=== PATIENT | female | born 1955 | race American Indian/Alaskan Native ===

== ENCOUNTER 2017-05-26 18:48 | Inpatient (IN) | payer BC ==
[2017-05-26 18:58] VITALS: BMI 22.5
[2017-05-26] MEDS ORDERED: HYDROmorphone 1 mg/ml ISec IVP STA (19:44)
[2017-05-26] MEDS ORDERED: Cefepime IV 2 gm in NS 2 GM/100 ML BAG IVPB STA (19:51)
[2017-05-26] MEDS ORDERED: Sodium Chloride 0.9% 1,000 ML IV STA (20:36)
[2017-05-26 20:57] LABS: VENOUS BLOOD PH 7.38 (7.32-7.43)
[2017-05-26 20:59] LABS: BASO # 0.05 K/mm3 (0.0-2.0); BASO % 0.5 % (0.0-3.0); EOS # 0.2 (0.0-0.7); EOS % 1.8 % (1.5-5.0); GRAN # 7.49 (1.4-6.5); GRAN % 72.4 % (50.0-68.0); HEMATOCRIT 32.6 % (36.0-48.0); LYMPH # 1.2 (1.2-3.4); LYMPH % 11.7 % (22.0-35.0); MEAN CELL VOLUME 90.8 fl (80.0-105.0); MEAN CORPUSCULAR HEMOGLOBIN 30.4 pg (25.0-35.0); MEAN CORPUSCULAR HGB CONC 33.4 g/dl (31.0-37.0); MEAN PLATELET VOLUME 9.7 fl (7.0-11.0); MONO # 1.4 (0.1-0.6); MONO % 13.6 % (1.0-6.0); WHITE BLOOD COUNT 10.4 10^3/ul (4.5-11.0)
[2017-05-26 21:05] LABS: INR 1.33 (0.93-1.08)
[2017-05-26 21:06] LABS: ALKALINE PHOSPHATASE 102 U/L (38-126); ALT/SGPT 41 U/L (7-56); AST/SGOT 49 U/L (14-36); BILIRUBIN,TOTAL 0.6 mg/dL (0.2-1.3); BLOOD UREA NITROGEN 14 mg/dL (7-21); CALCIUM 9.6 mg/dL (8.4-10.5); CARBON DIOXIDE 31 mmol/L (21-33); CHLORIDE 100 mmol/L (98-107); GFR AFRICAN-AMERICAN > 60; GLUCOSE,RANDOM 119 mg/dL (70-110); POTASSIUM 3.2 mmol/L (3.6-5.0); SODIUM 139 mmol/L (132-148); TOTAL PROTEIN 7.5 g/dL (5.8-8.3)
--- NOTE | 2017-05-26 21:21 | ED PDOC ---
Arrival/HPI - General Chief Complaint: Abnormal Skin Integrity Time Seen by Provider: 05/26/17 19:21 Historian: Patient - History of Present Illness Narrative History of Present Illness (Text): 05/26/17 19:40 A 61 year old female, whose past medical history includes MS, bladder ca and ovarian ca, presents to the emergency department complaining of painful ulcers on legs. Patient was sent in by Dr. Hernadez. She reports fevers of 101 at home and has been on Bactrim for the past week. is worried about spreading to the bone and osteomyelitis and recommends surgical consult with Dr. Alexandra. Patient reports completing chemotherapy in April. Patient has chronic ulcers on leg, and has recently been draining and painful radiating to upper leg. 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 - HEENT Hx HEENT Disorder: No Other/Comment: wears glasses - Renal Hx Renal Disorder: Yes Other/Comment: bladder stones/ cancer - Endocrine/Metabolic Hx Endocrine Disorders: No - Hematological/Oncological Hx Blood Transfusions: No Hx Blood Transfusion Reaction: No Hx Cancer: Yes (Bladder/ovarian CA) - Integumentary Hx Dermatological Disorder: No - Musculoskeletal/Rheumatological Hx Musculoskeletal Disorders: Yes - Gastrointestinal Hx Gastrointestinal Disorders: Yes Hx Vomiting: No - Genitourinary/Gynecological Hx Genitourinary Disorders: Yes Hx Bladder Cancer: Yes Hx Bladder Stone: Yes Hx Ovarian Cancer: Yes Other/Comment: + R side urostomy - Psychiatric Hx Emotional Abuse: No Hx Physical Abuse: No Hx Substance Use: No - Surgical History Other/Comment: Gtube reversal. R side urostomy. L side pacemaker/ defibrillator. Partial hysterectomy - Anesthesia Hx Anesthesia: Yes Hx Anesthesia Reactions: No Hx Malignant Hyperthermia: No - Suicidal Assessment Feels Threatened In Home Enviroment: No Family/Social History - Physician Review Nursing Documentation Reviewed: Yes Family/Social History: No Known Family HX Smoking Status: Never Smoked Hx Alcohol Use: No Hx Substance Use: No Hx Substance Use Treatment: No Allergies/Home Meds Allergies/Adverse Reactions: Allergies No Known Allergies Allergy (Verified 10/19/15 13:54) Home Medications: Home Meds Medication Instructions Recorded Confirmed Tapentadol HCl [Nucynta ER] 150 mg PO Q12H 08/16/13 05/26/17 Tapentadol HCl [Nucynta] 100 mg PO QID 10/16/15 05/26/17 tiZANidine [Zanaflex] 4 mg PO HS 10/16/15 05/26/17 Ascorbic Acid [Vitamin C] 1 tab PO DAILY 10/19/15 05/26/17 Cholecalciferol (Vitamin D3) 50,000 unit PO MON 10/19/15 05/26/17 [Vitamin D] Pregabalin [Lyrica] 225 mg PO BID 10/19/15 05/26/17 Glatiramer Acetate [Copaxone] 40 mg SQ MWF 10/20/15 05/26/17 Review of Systems - Physician Review All systems were reviewed & negative as marked: Yes - Review of Systems Constitutional: Fevers Skin: Ulcer, Other (Left leg pain) Physical Exam Vital Signs Reviewed: Yes Vital Signs Temp Pulse Resp BP Pulse Ox 05/26/17 21:30 86 18 124/76 100 05/26/17 19:03 98.8 F 122 H 18 119/80 98 Temperature: Afebrile Blood Pressure: Normal Pulse: Regular Respiratory Rate: Normal Appearance: Positive for: Well-Appearing Pain Distress: None Mental Status: Positive for: Alert and Oriented X 3 - Systems Exam Head: Present: Atraumatic, Normocephalic Pupils: Present: PERRL Extroacular Muscles: Present: EOMI Conjunctiva: Present: Normal Mouth: Present: Moist Mucous Membranes Neck: Present: Normal Range of Motion Respiratory/Chest: Present: Clear to Auscultation, Good Air Exchange. No: Respiratory Distress, Accessory Muscle Use Cardiovascular: Present: Regular Rate and Rhythm, Normal S1, S2. No: Murmurs Abdomen: Present: Normal Bowel Sounds. No: Tenderness, Distention, Peritoneal Signs Back: Present: Normal Inspection Upper Extremity: Present: Normal Inspection. No: Cyanosis, Edema Lower Extremity: Present: NORMAL PULSES, Erythema, Other (multiple necrotic wounds 4cm to the left medial calf with minimal erythema. Varies stages of infection other necrotic wounds. (-) No swelling on soft tissue.). No: Edema, Swelling Neurological: Present: GCS=15, CN II-XII Intact, Speech Normal Skin: Present: Warm, Dry, Normal Color. No: Rashes Psychiatric: Present: Alert, Oriented x 3, Normal Insight, Normal Concentration Medical Decision Making ED Course and Treatment: 05/26/17 19:44 Impression: 61 year old female with chronic ulcer on legs. Plan: -- Left Tibia Fibula X-Ray -- Venous Blood gas -- Blood Culture -- Dilaudid -- Cefepime IV -- Potassium Chlroide IV -- IV Fluids -- Vancomycin -- Reassess and disposition Progress Notes: bedside surgical consult with surgical consultant doubt deep space infection or nec fasc, pain control and abx given. broad spectrum abx given possible early signs of sepsis will give aggressive fluid resusc. will admit to 's service. 05/26/17 22:14 06/01/17 18:16 06/01/17 18:18 Reassessment Condition: Re-examined, Improved - Lab Interpretations Microbiology Results: Microbiology Results 05/26/17 20:30 Blood Blood Culture - Final NO GROWTH AFTER 5 DAYS 05/26/17 20:30 Blood Gram Stain - Final TEST NOT PERFORMED 05/26/17 20:20 Blood Blood Culture - Final NO GROWTH AFTER 5 DAYS 05/26/17 20:20 Blood Gram Stain - Final TEST NOT PERFORMED 05/26/17 21:02 Leg - Left Gram Stain - Final 05/26/17 21:02 Leg - Left Wound Culture - Final Pseudomonas Aeruginosa Lab Results: 05/26/17 20:20 05/26/17 20:20 Lab Results 05/26/17 20:20: PT 14.6 H, INR 1.33 H 05/26/17 20:20: pO2 56 H, VBG pH 7.38, VBG pCO2 49.0, VBG HCO3 29.0 H, VBG Total CO2 30.5 H, VBG O2 Sat (Calc) 92.4 H, VBG Base Excess 3.0 H, VBG Potassium 3.4 L, Sodium 139.0, Chloride 102.0, Glucose 122 H, Lactate 2.1, FiO2 21.0, Venous Blood Potassium 3.4 L 05/26/17 20:20: Sodium 139, Chloride 100, Potassium 3.2 L, Carbon Dioxide 31, Anion Gap 11, BUN 14, Creatinine 1.0, Est GFR ( Amer) > 60, Est GFR (Non- Af Amer) 56, Random Glucose 119 H, Calcium 9.6, Total Bilirubin 0.6, AST 49 H, ALT 41, Alkaline Phosphatase 102, Total Protein 7.5, Albumin 3.7, Globulin 3.8, Albumin/Globulin Ratio 1.0 L 05/26/17 20:20: WBC 10.4 D, RBC 3.59, Hgb 10.9 L, Hct 32.6 L, MCV 90.8, MCH 30.4, MCHC 33.4, RDW 15.0 H, Plt Count 426, MPV 9.7, Gran % 72.4 H, Lymph % ( Auto) 11.7 L, [place] % (Auto) 13.6 H, Eos % (Auto) 1.8, Baso % (Auto) 0.5, Gran # 7.49 H, Lymph # 1.2, [place] # 1.4 H, Eos # 0.2, Baso # 0.05 - RAD Interpretation Radiology Orders: 05/26/17 19:47 TIBIA FIBULA LEFT [RAD] Stat - Medication Orders Current Medication Orders: Acetaminophen (Tylenol 325mg Tab) 650 mg PO Q6H PRN PRN Reason: Fever >100.4 F Last Admin: 05/29/17 22:01 Dose: 650 mg [facility] Pain/Vitals Document 05/29/17 22:01 IMT (Rec: 05/29/17 22:01 IMT [id number]) Presence of Pain Presence of Pain Yes Location Left, Right or Bilateral Left Pain Location Body Site Calf Description Intermittent Intensity 5 Pain Behavior Restlessness Re-Assess: [facility] Pain/Vitals Document 05/29/17 23:01 IMT (Rec: 05/29/17 23:18 IMT [id number]) Presence of Pain Presence of Pain No Ascorbic Acid (Vitamin C 500 Mg Tab) 250 mg PO DAILY [facility] Last Admin: 06/01/17 14:44 Dose: 250 mg Collagenase (Santyl) 0 gm TOP DAILY [facility] Last Admin: 06/01/17 14:46 Dose: 1 applic Home Med (Home Med) 1 unit INJ MWF [facility] Last Admin: 05/31/17 11:13 Dose: 1 unit Hydromorphone HCl (Dilaudid) 1 mg IVP Q4H PRN PRN Reason: Pain, moderate (4-7) Last Admin: 06/01/17 17:36 Dose: 1 mg MAR Pain Assessment [place] 06/01/17 17:36 [facility] [place]: 06/01/17 17:36 [id number]) Pain Reassessment Is this a pain reassessment? No Presence of Pain Presence of Pain Yes Pain Scale Used Pain Scale Used Numeric Location Left, Right or Bilateral Bilateral Pain Location Body Site Groin Description Description Pressure Intensity of Pain at present 9 Pain Behavior Irritability Restlessness Facial Grimacing Aggravating Factors Changing Position Alleviating Factors/Management Medication Techniques Alleviating Factors Medication IVP Administration Document 06/01/17 17:36 [facility] [place]: 06/01/17 17:36 [id number]) Charges for Administration # of IVP Administrations 1 Meropenem (Merrem Iv 1 Gm Premix) 50 mls @ 100 mls/hr IVPB Q8 [facility] PRN Reason: Protocol Stop: 06/06/17 23:59 Last Admin: 06/01/17 14:45 Dose: 100 mls/hr eMAR Start Stop Document 06/01/17 14:45 [facility] (Rec: 06/01/17 14:46 [id number]) Intravenous Solution Start Date 06/01/17 Start Time 14:46 Sodium Chloride (Sodium Chloride 0.9%) 1,000 mls @ 100 mls/hr IV .Q10H [facility] Last Admin: 06/01/17 17:37 Dose: 100 mls/hr eMAR Start Stop Document 06/01/17 17:37 MCV (Rec: 06/01/17 17:37 [id number]) Intravenous Solution Start Date 06/01/17 Start Time 17:37 Lactulose (Enulose) 20 gm PO HS [facility] Last Admin: 05/31/17 21:56 Dose: 20 gm Ondansetron HCl (Zofran Inj) 4 mg IVP Q4H PRN PRN Reason: Nausea/Vomiting Oxycodone/Acetaminophen (Percocet 5/325 Mg Tab) 2 tab PO Q4H PRN PRN Reason: Pain, moderate (4-7) Stop: 06/04/17 11:56 Pantoprazole Sodium (Protonix Ec Tab) 40 mg PO 0600 [facility] Last Admin: 06/01/17 05:56 Dose: Not Given Non-Admin Reason: NPO Polyethylene Glycol (Miralax) 17 gm PO BID [facility] Last Admin: 06/01/17 14:45 Dose: 17 gm Pregabalin (Lyrica) 225 mg PO BID [facility] Last Admin: 06/01/17 14:45 Dose: 225 mg Tizanidine HCl (Zanaflex) 4 mg PO HS [facility] Last Admin: 05/31/17 21:56 Dose: 4 mg Discontinued Medications Hydromorphone HCl (Dilaudid) 1 mg IVP STAT STA Stop: 05/26/17 19:45 Last Admin: 05/26/17 21:03 Dose: 1 mg MAR Pain Assessment Document 05/26/17 21:03 [facility] (Rec: 05/26/17 21:03 [facility] [id number]) Pain Reassessment Is this a pain reassessment? Yes IVP Administration Document 05/26/17 21:03 [facility] (Rec: 05/26/17 21:03 [facility] [id number]) Charges for Administration # of IVP Administrations 1 Cefepime HCl (Maxipime 2gm) 2 gm in 100 mls @ 100 mls/hr IVPB STAT STA PRN Reason: Protocol Stop: 05/26/17 20:50 Last Admin: 05/26/17 21:03 Dose: 100 mls/hr eMAR Start Stop Document 05/26/17 21:03 [facility] (Rec: 05/26/17 21:04 [facility] [id number]) Intravenous Solution Start Date 05/26/17 Start Time 21:03 End Date 05/26/17 End time 21:33 Total Infusion Time 30 Vancomycin HCl (Vancomycin 1gm) 1 gm in 250 mls @ 167 mls/hr IVPB DAILY [facility] PRN Reason: Protocol Sodium Chloride (Sodium Chloride 0.9%) 1,000 mls @ 999 mls/hr IV .Q1H1M STA Stop: 05/26/17 21:36 Last Admin: 05/26/17 21:04 Dose: 999 mls/hr eMAR Start Stop Document 05/26/17 21:04 [facility] (Rec: 05/26/17 21:04 [facility] [id number]) Intravenous Solution Start Date 05/26/17 Start Time 21:04 End Date 05/26/17 End time 22:04 Total Infusion Time 60 Vancomycin HCl (Vancomycin 1gm) 1 gm in 250 mls @ 167 mls/hr IVPB Q12H [facility] PRN Reason: Protocol Last Admin: 05/31/17 11:16 Dose: 167 mls/hr eMAR Start Stop Document 05/31/17 11:16 [place] (Rec: 05/31/17 11:16 [place] [id number] Intravenous Solution Start Date 05/31/17 Start Time 11:16 End Date 05/31/17 End time 12:46 Total Infusion Time 90 Meropenem 1 gm/ Dextrose 100 mls @ 100 mls/hr IVPB Q8 [facility] PRN Reason: Protocol Stop: 06/06/17 22:01 Last Admin: 05/30/17 14:27 Dose: 100 mls/hr eMAR Start Stop Document 05/30/17 14:27 [place] (Rec: 05/30/17 14:28 [place] [id number] Intravenous Solution Start Date 05/30/17 Start Time 14:28 End Date 05/30/17 End time 15:28 Total Infusion Time 60 Lactated Ringer's (Lactated Ringer's) 1,000 mls @ 75 mls/hr IV .[id number] [facility] Stop: 05/30/17 14:46 Oxycodone/Acetaminophen (Percocet 5/325 Mg Tab) 1 tab PO Q4H PRN PRN Reason: Pain, moderate (4-7) Stop: 05/29/17 23:35 Last Admin: 05/29/17 16:54 Dose: 1 tab [facility] Pain Assessment Document 05/29/17 16:54 [place] (Rec: 05/29/17 16:54 [place] [id number] Pain Reassessment Is this a pain reassessment? No Presence of Pain Presence of Pain Yes Pain Scale Used Pain Scale Used Numeric Location Left, Right or Bilateral Left Pain Location Body Site Foot Description Description Intermittent Intensity of Pain at present 7 Pain Behavior Facial Grimacing Alleviating Factors/Management Medication Techniques Alleviating Factors Medication Re-Assess: [facility] Pain Assessment Document 05/29/17 17:54 SD (Rec: 05/29/17 18:40 SD [id number]) Pain Reassessment Is this a pain reassessment? Yes Sleep Is patient sleeping during reassessment? Yes Pantoprazole Sodium (Protonix Ec Tab) 40 mg PO 0600 [facility] Potassium Chloride (K-Dur 20 Meq Er Tab) 20 meq PO STAT STA Stop: 05/26/17 21:28 Last Admin: 05/26/17 22:39 Dose: 20 meq - Scribe Statement The provider has reviewed the documentation as recorded by the Seanibmarty Brumfield Provider Scribe Attestation: All medical record entries made by the Scribe were at my direction and personally dictated by me. I have reviewed the chart and agree that the record accurately reflects my personal performance of the history, physical exam, medical decision making, and the department course for this patient. I have also personally directed, reviewed, and agree with the discharge instructions and disposition. Disposition/Present on Arrival - Present on Arrival Any Indicators Present on Arrival: Yes History of DVT/PE: No History of Uncontrolled Diabetes: No Urinary Catheter: Yes History of Decub. Ulcer: No History Surgical Site Infection Following: None - Disposition Have Diagnosis and Disposition been Completed?: Yes Diagnosis: Leg ulcer Disposition: HOSPITALIZED Disposition Time: 02:00 Patient Plan: Admission Condition: FAIR
[2017-05-26] MEDS ORDERED: Potassium Chloride 20 mEq ER Tab PO STA (21:27)
[2017-05-27 01:42] LABS: VENOUS BLOOD GAS BASE EXCESS 6.9 mmol/L (0.0-2.0); VENOUS BLOOD PH 7.41 (7.32-7.43)
--- NOTE | 2017-05-27 04:37 | CP.PCM.CON ---
History of Present Illness - History of Present Illness History of Present Illness: General Surgery- Dr. Navarro 61F pmhx of chemo & radiation for Ovarian and bladder Ca presents to [facility] ED after primary seeing her in office for multiple left lower extremity different stage ulcers. Pt describes LLE numbness and tingling with associated sharp pain. First noticed leg ulcer after her last chemo treatment in April of 2016. Most medial ulcer has purulent drainage from site with mild erythema. Pt has associated subjective fevers. Denies: chills, shortness of breath, chest pain, heart palpitations, nausea, vomiting, diarrhea PMH: Stated above PSH: ileal conduit (2016) at [place], bowel resection, ICD placement ALL: NKDA SocialHx: former smoker quit > 2.5yrs ago approx 1ppd, denies etoh, recreational drug use PMD: Dr. Hernadez Review of Systems - Review of Systems All systems: reviewed and no additional remarkable complaints except - Constitutional Constitutional: As Per HPI Past Patient History - Infectious Disease Hx of Infectious Diseases: None - Tetanus Immunizations Tetanus Immunization: Up to Date - Past Medical History & Family History Past Medical History?: Yes - Past Social History Smoking Status: Former Smoker - CARDIAC Hx Internal Defibrillator: Yes [place]x [place] [facility] [place] Other/Comment: L sided pac[place] - PULMONARY Hx Respiratory Disorders: No - NEUROLOGICAL Hx Neurological Disorder: Yes Other/Comment: 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 - HEENT Hx HEENT Problems: No Other/Comment: wears glasses - RENAL Hx Chronic Kidney Disease: Yes Other/Comment: bladder stones/ cancer - ENDOCRINE/METABOLIC Hx Endocrine Disorders: No - HEMATOLOGICAL/ONCOLOGICAL Hx Cancer: Yes (Bladder/ovarian CA) - INTEGUMENTARY Hx Dermatological Problems: No - MUSCULOSKELETAL/RHEUMATOLOGICAL Hx Falls: Yes - GASTROINTESTINAL Hx Gastrointestinal Disorders: Yes - GENITOURINARY/GYNECOLOGICAL Hx Genitourinary Disorders: Yes Other/Comment: + R side urostomy - PSYCHIATRIC Hx Substance Use: No - SURGICAL HISTORY Hx Hysterectomy: Yes Other/Comment: Gtube reversal. R side urostomy. L side pacemaker/ defibrillator. Partial hysterectomy - ANESTHESIA Hx Anesthesia: Yes Hx Anesthesia Reactions: No Hx Malignant Hyperthermia: No Meds Allergies/Adverse Reactions: Allergies Allergy/AdvReac Type Severity Reaction Status Date / Time No Known Allergies Allergy Verified 10/19/15 13:54 - Medications Medications: Current Medications Ascorbic Acid (Vitamin C 500 Mg Tab) 250 mg PO DAILY [facility] Vancomycin HCl (Vancomycin 1gm) 1 gm in 250 mls @ 167 mls/hr IVPB Q12H [facility] PRN Reason: Protocol Oxycodone/Acetaminophen (Percocet 5/325 Mg Tab) 1 tab PO Q4H PRN PRN Reason: Pain, moderate (4-7) Stop: 05/29/17 23:35 Pregabalin (Lyrica) 225 mg PO BID [facility] Last Admin: 05/27/17 01:14 Dose: 225 mg Tizanidine HCl (Zanaflex) 4 mg PO HS [facility] Last Admin: 05/27/17 01:13 Dose: 4 mg Physical Exam - Constitutional Appears: Non-toxic, No Acute Distress - Head Exam Head Exam: ATRAUMATIC - Eye Exam Eye Exam: EOMI. absent: Scleral icterus - ENT Exam ENT Exam: Mucous Membranes Moist - Respiratory Exam Respiratory Exam: NORMAL BREATHING PATTERN. absent: Accessory Muscle Use, Respiratory Distress - Cardiovascular Exam Cardiovascular Exam: +S1, +S2. absent: Bradycardia, Tachycardia - GI/Abdominal Exam GI & Abdominal Exam: Soft. absent: Distended, Firm, Guarding, Rigid, Tenderness Additional comments: ileal conduit right lateral to umbilicus - Extremities Exam Extremities exam: Positive for: pedal pulses present Additional comments: 2+ DP pulses bilateral LLE 4 ulcers at various stages. Medial ulcer stage 4 w/ purulent drainage. no area of nercosis - Neurological Exam Neurological exam: Alert, Oriented x3 - Psychiatric Exam Psychiatric exam: Normal Affect - Skin Skin Exam: Dry, Warm Results - Vital Signs Recent Vital Signs: Last Vital Signs Temp 98.7 F 05/27/17 03:28 Pulse 95 H 05/27/17 03:28 Resp 20 05/27/17 03:28 BP 101/63 05/27/17 03:28 Pulse Ox 100 05/26/17 21:30 - Labs Result Diagrams: 05/26/17 20:20 05/26/17 20:20 Labs: Laboratory Results - last 24 hr 05/27/17 01:30 pO2 71 H VBG pH 7.41 VBG pCO2 52.0 VBG HCO3 33.0 H VBG Total CO2 34.6 H VBG O2 Sat (Calc) 95.5 H VBG Base Excess 6.9 H VBG Potassium 3.4 L Sodium 143.0 Chloride 108.0 H Glucose 114 H Lactate 1.0 FiO2 21.0 Venous Blood Potassium 3.4 L Assessment & Plan - Assessment and Plan (Free Text) Assessment: 61F pmhx chemo treatment for bladder, ovarian CA in remission; multiple left lower extremity leg ulcers at various stages Plan: - local wound care w/ santyl for now; chemical debridement - wound culture - Abx per ID recs - will re-asses to determine if mechanical debridement is needed - further recommendations per Dr. Navarro surgical attending Doug William PGY1
[2017-05-27] MEDS: Vancomycin 1gm in NS 250ml 1 GM/250 ML BAG IVPB SCH ×3 (06:25→23:24)
[2017-05-27 06:28] LABS: BASO # 0.07 K/mm3 (0.0-2.0); BASO % 0.9 % (0.0-3.0); EOS # 0.2 (0.0-0.7); EOS % 2.6 % (1.5-5.0); GRAN # 5.48 (1.4-6.5); GRAN % 67.8 % (50.0-68.0); LYMPH # 1.2 (1.2-3.4); LYMPH % 14.5 % (22.0-35.0); MEAN CELL VOLUME 91.7 fl (80.0-105.0); MEAN CORPUSCULAR HEMOGLOBIN 29.2 pg (25.0-35.0); MEAN CORPUSCULAR HGB CONC 31.9 g/dl (31.0-37.0); MEAN PLATELET VOLUME 9.5 fl (7.0-11.0); MONO # 1.2 (0.1-0.6); MONO % 14.2 % (1.0-6.0); RED CELL DISTRIBUTION WIDTH 15.2 % (11.5-14.5); WHITE BLOOD COUNT 8.1 10^3/ul (4.5-11.0)
[2017-05-27 06:38] LABS: ALB/GLOB RATIO 0.9 (1.1-1.8); ALKALINE PHOSPHATASE 86 U/L (38-126); ALT/SGPT 41 U/L (7-56); AST/SGOT 50 U/L (14-36); BILIRUBIN,TOTAL 0.5 mg/dL (0.2-1.3); BLOOD UREA NITROGEN 16 mg/dL (7-21); CALCIUM 9.4 mg/dL (8.4-10.5); CARBON DIOXIDE 31 mmol/L (21-33); CHLORIDE 106 mmol/L (98-107); GFR AFRICAN-AMERICAN > 60; GLUCOSE,RANDOM 96 mg/dL (70-110); POTASSIUM 3.8 mmol/L (3.6-5.0); SODIUM 142 mmol/L (132-148); TOTAL PROTEIN 6.7 g/dL (5.8-8.3)
--- NOTE | 2017-05-27 08:58 | CP.PCM.PCO ---
Physician Communication Note - Physician Communication Note Physician Communication Note: Will need excisional debridement to r/oPyoderma gangrenosum(?STSG)
[2017-05-27] MEDS ORDERED: Vancomycin 1gm in NS 250ml 1 GM/250 ML BAG IVPB SCH (10:00)
--- NOTE | 2017-05-27 10:03 | RAD ---
PROCEDURE: Radiographs of the left tibia and fibula. HISTORY: left leg lesion COMPARISON: None available. TECHNIQUE: Frontal and lateral views obtained. FINDINGS: BONES: No acute displaced fracture. Within the distal tibia, there is evidence of a chondroid lesion, possibly an enchondroma. However correlate clinically for pain as low grade chondrosarcoma may have similar appearance. JOINT SPACES: No dislocation. OTHER FINDINGS: Posterior medial soft tissue defect at the level of the distal lower leg. No evidence of radiopaque foreign body. IMPRESSION: Posterior medial soft tissue defect at the level of the distal lower leg. Within the distal tibia, there is evidence of a chondroid lesion, possibly an enchondroma. However correlate clinically for pain as low grade chondrosarcoma may have similar appearance.
[2017-05-27] MEDS: Collagenase 250 Units/gm Ointment(30 gm) TOP SCH (11:02)
--- NOTE | 2017-05-27 11:26 | HP ---
HISTORY OF PRESENT ILLNESS: The patient is 61-year-old black female known to me from office. She was seen in office earlier because of worsening left kyle bone. The patient states she had chemotherapy couple of months ago. Since then she had spots of both legs, but more so on the left. I gave her Bactrim DS and Bactroban through put. Most of the lesions got healed but one of them kept on getting bigger and bigger to the point that was draining purulent fluid, getting deeper crater. So, I saw the patient in the office earlier and was found to have leg wound having foul-smelling discharge and necrotic tissue at the base. So, I referred her to emergency room for IV antibiotic, wound care, and surgical evaluation since the patient complained of having fever and chills for last 3 days. She stated she has fever up to 101. She also complained of painful lymphadenopathy in both groins. PAST MEDICAL HISTORY: Significant for: 1. Multiple sclerosis. 2. History of bladder cancer status post ileal conduit formation. 3. History of ovarian cancer status post hysterectomy. 4. Peptic ulcer disease. 5. Status post PEG because of dysphagia. 6. History of cardiomyopathy. 7. Status post coronary artery disease, status post left anterior descending bare metal stenting. ALLERGIES: THE PATIENT IS NOT ALLERGIC TO ANY MEDICATION. MEDICATIONS: Medications at home, she is on Lyrica 225 twice a day, Copaxone she takes Monday, Monday, and Monday,vitamin D, ascorbic acid, and 100 mg daily, and 150 mg q. 12 hours, Zanaflex 4 mg at bedtime. SOCIAL HISTORY: She is , lives with the . Denies smoking or drinking. REVIEW OF SYSTEMS: Significant for the painful left kyle ulceration. PHYSICAL EXAMINATION GENERAL: She is awake, alert, oriented, communicative, ambulatory. VITAL SIGNS: She is afebrile, pulse 120, respirations 18, and blood pressure 119/80. LUNGS: Bilateral good airflow. No rhonchi or crackles. HEART: S1, S2 audible. ABDOMEN: Soft, conduit in place. EXTREMITIES: She has painful inguinal lymph node. She has a 8 x10 cm round lesion with necrotic tissue on the left inner aspect of the lower leg. LABORATORY DATA: WBC 10.4, hemoglobin 10.9, hematocrit 32.6, platelet of 426. PT 14.6, INR 1.33. Chemistry, sodium 139, potassium 3.2, chloride 100, CO2 31, BUN 14, creatinine 1.0, blood sugar 119 . LFTs are within normal limits. X-ray of tibia and fibula is unremarkable. ASSESSMENT: 1. Left lower leg nonhealing ulcer with necrotic tissue in the crater. 2. Bladder cancer and ovarian cancer, status post recent radiation and chemotherapy. 3. Coronary artery disease, status post angioplasty for LAD. 4. Chronic anemia. 5. Chronic back pain. 6. Painful inguina lymphadenopathy. PLAN: Blood culture, wound culture are sent. Dr. Anglin to evaluate the patient. Dr. Kumar Navarro, to evaluate the wound. Analgesic as needed. We will follow up this patient in the a.m. Kimberley Hernadez MD
--- NOTE | 2017-05-27 15:55 | PN ---
SUBJECTIVE: The patient is 61 years old, seen and examined, lying in bed, complaining of feeling hot and sweaty. No nausea or vomiting. PHYSICAL EXAMINATION VITAL SIGNS: She is afebrile, pulse 87, respirations 18, blood pressure 101/67. LUNGS: Bilateral fair airflow. No rhonchi or crackles. HEART: S1 and S2 audible. ABDOMEN: Soft, nontender. She has ileal conduit in the lower mid abdomen. NEUROLOGIC: She is awake, alert, oriented. EXTREMITIES: She has multiple lesions on her left lower leg, one of them has a necrotic ulcer that has not been healing for almost a month. LABORATORY DATA: WBC is 8.1, hemoglobin 10.2, hematocrit 32.0, and platelet of 384. Sodium 142, potassium 3.8, chloride 106, CO2 of 31, BUN 16, creatinine 0.9, and blood sugar of 96. X-ray of the tibia and fibula shows posterior medial soft tissue defect at the level of distal lower leg. Within distal tibia, there is evidence of chondral lesion, possibly enchondroma. ASSESSMENT: 1. Left lower leg necrotic lesion. 2. Multiple sclerosis. 3. Difficulty walking. 4. 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 5. History of ovarian tumor. PLAN: We will follow up wound culture and blood culture. Currently, she is on vancomycin 1 g q. 12 and awaiting ID input and surgical input. We will follow up the patient in the a.m. Kimberley Hernadez MD
--- NOTE | 2017-05-27 18:25 | US ---
HISTORY: Leg pain and swelling. Evaluate for DVT PHYSICIAN(S): Kwame Mcneal MD. TECHNIQUE: Duplex sonography and color-flow Doppler with graded compression were used to evaluate the deep venous systems of both lower extremities. FINDINGS: The visualized deep venous systems of both lower extremities are sonographically normal and compressible. Normal wave forms and augmentation are seen. There is no sonographic evidence for deep venous thrombosis in the visualized segments of both lower extremities. IMPRESSION: No sonographic evidence for deep venous thrombosis in the visualized segments of both lower extremities.
[2017-05-27] MEDS: Oxycodone/Acetaminophen 5/325 mg Tab PO PRN (20:21)
--- NOTE | 2017-05-28 02:37 | CON ---
DATE: 05/27/2017 Patient is seen in room 568, bed 2. CHIEF COMPLAINT: Left leg sores x1 year duration. HISTORY OF PRESENT ILLNESS: This is a 61-year-old female with a history of bladder cancer, urethral cancer, who has had cardiomyopathy and bladder stones in the past, who has had chemotherapy in the past and multiple sclerosis, and patient is admitted because of several leg ulcers for the past 1 year that has gone progressively worse and has failed as outpatient. She denies any fevers, any chills. No nausea or vomiting. No trauma. No chest pain, shortness of breath, or cough. 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 PAST SURGICAL HISTORY: Significant for a pacemaker. She has a right Port-a-Cath, and she had urinary bladder and oophorectomy in 2016. Prior to that, in 1989, she had a partial hysterectomy. She also had a cardiac catheterization. ALLERGIES: SHE HAS NO KNOWN ALLERGIES. PHYSICAL EXAMINATION: GENERAL: Patient in bed. No acute distress. She is answering questions appropriately. VITAL SIGNS: Temperature of 98, blood pressure is 101/60, respiratory rate of 20, heart rate of 120. HEENT: Unremarkable. NECK: Supple. LUNGS: Have decreased breath sounds. HEART: Normal S1, S2. ABDOMEN: Soft, nontender. No rebound, no guarding, no masses. EXTREMITIES: Examination of the left leg reveals the patient has 3 ulcers; one of them which is a significant size, approximately size of a half a dollar, and has necrotic area in the middle. No discharge at this time, and the 2 other ulcers that are also approximately size of a quarter and with necrotic area. LABORATORY DATA: Reveals a white count of 10,000, sed rate is 123. Coagulation is noted. Blood gases are noted. Chemistries reveal a C-reactive protein greater than 15. BUN and creatinine are normal. Microbiology is pending. Dr. Navarro's communication report is reviewed. Dr. Hernadez's history and physical examination is reviewed. She states that the patient does have history of bladder cancer and ovarian cancer and that she is requesting surgical consultation by Dr. Navarro. His consultation is reviewed. Patient also had a tibia-fibula x-ray which is reviewed. 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 It may appear similarly which was read by Dr. Jackie Mccracken. ASSESSMENT AND PLAN: This is a 61-year-old female with urinary bladder-urethral cancer, ovarian cancer, multiple sclerosis, cardiomyopathy, pacemaker, right Port-a-Cath, admitted now with left lower leg multiple ulcers, must rule out underlying osteomyelitis, peripheral arterial disease, must rule out atypical or infection, and acid-fast bacillus and fungal smears, Nocardia, and modified acid-fast smears and Gram stain, in addition, routine cultures, acid-fast bacillus, fungal, and Nocardia cultures. She should have a biopsy sent for pathology for pyoderma gangrenosum and it is less likely and Gram stain and routine cultures, and we will follow closely with you pending atypical smears and cultures and staining, special staining for acid-fast bacillus and Nocardia, fungal, and Gram stain in respective cultures. We will discuss with Dr. Navarro. Tyler Anglin MD
--- NOTE | 2017-05-28 08:52 | CP.PCM.PN ---
Subjective - Date & Time of Evaluation Date of Evaluation: 05/28/17 Time of Evaluation: 08:49 - Subjective Subjective: Surgery: Dr. Navarro Pt seen and examined. No acute overnight events. States she feels well and denies any complaints at this time. Tolerating diet. Objective - Vital Signs/Intake and Output Vital Signs (last 24 hours): Temp Pulse Resp BP Pulse Ox 98.4 F 57 L 20 163/83 H 94 L 05/28/17 08:16 05/28/17 08:16 05/28/17 08:16 05/28/17 08:16 05/28/17 08:16 Intake and Output: 05/28/17 05/28/17 06:59 18:59 Intake Total 1210 Output Total 400 Balance 810 - Medications Medications: Current Medications Acetaminophen (Tylenol 325mg Tab) 650 mg PO Q6H PRN PRN Reason: Fever >100.4 F Ascorbic Acid (Vitamin C 500 Mg Tab) 250 mg PO DAILY [facility] Last Admin: 05/27/17 11:02 Dose: 250 mg Collagenase (Santyl) 0 gm TOP DAILY [facility] Last Admin: 05/27/17 11:02 Dose: 1 applic Home Med (Home Med) 1 unit INJ MWF [facility] Vancomycin HCl (Vancomycin 1gm) 1 gm in 250 mls @ 167 mls/hr IVPB Q12H [facility] PRN Reason: Protocol Last Admin: 05/27/17 23:24 Dose: 167 mls/hr Oxycodone/Acetaminophen (Percocet 5/325 Mg Tab) 1 tab PO Q4H PRN PRN Reason: Pain, moderate (4-7) Stop: 05/29/17 23:35 Last Admin: 05/27/17 20:21 Dose: 1 tab Pregabalin (Lyrica) 225 mg PO BID [facility] Last Admin: 05/27/17 17:56 Dose: 225 mg Tizanidine HCl (Zanaflex) 4 mg PO HS [facility] Last Admin: 05/27/17 22:19 Dose: 4 mg - Labs Labs: 05/27/17 06:15 05/27/17 06:15 PT 14.6 SECONDS (9.4-12.5) H 05/26/17 20:20 INR 1.33 (0.93-1.08) H 05/26/17 20:20 - Constitutional Appears: Well, No Acute Distress - Head Exam Head Exam: ATRAUMATIC, NORMOCEPHALIC - Eye Exam Eye Exam: Normal appearance - Respiratory Exam Respiratory Exam: NORMAL BREATHING PATTERN - Cardiovascular Exam Cardiovascular Exam: RRR - GI/Abdominal Exam GI & Abdominal Exam: Soft. absent: Distended, Tenderness - Extremities Exam Additional comments: LLE with multiple ulcers, dressing C/D/I - Neurological Exam Neurological Exam: Alert, Awake, Oriented x3 - Skin Skin Exam: Dry, Warm Assessment and Plan - Assessment and Plan (Free Text) Assessment: 61F with LLE ulcers Plan: - OR tues for debridement of ulcers with possible skin graft - d/w Dr. Ramon Barksdale, PGY-3 Surgery
[2017-05-28] MEDS: Oxycodone/Acetaminophen 5/325 mg Tab PO PRN (10:37)
[2017-05-28] MEDS: Collagenase 250 Units/gm Ointment(30 gm) TOP SCH (11:45)
[2017-05-28] MEDS: Vancomycin 1gm in NS 250ml 1 GM/250 ML BAG IVPB SCH ×2 (12:04→23:32)
[2017-05-28] MEDS: POLYETHYLENE GLYCOL 3350 17 GM/Dose PACKET PO SCH ×2 (12:04→18:36)
--- NOTE | 2017-05-28 12:22 | PN ---
DATE: 05/28/2017 SUBJECTIVE: The patient has no complaints of any chest pain or shortness of breath. She says her left leg is painful, when she puts weight on it, but she is able to ambulate. PHYSICAL EXAMINATION: VITAL SIGNS: Temperature 98.4, pulse of 57, blood pressure 163/83, and respirations 20. GENERAL: The patient is lying in bed, flat, comfortable. HEENT: No oral lesion. Anicteric sclerae. Moist mucosa. NECK: No JVD, adenopathy, or thyromegaly. CARDIOVASCULAR: S1 and S2, regular. No murmurs, rubs, or gallops. LUNGS: Clear to auscultation bilaterally. No wheeze, rales, or rhonchi. ABDOMEN: Bowel sounds are positive, soft, nontender and nondistended. EXTREMITIES: No cyanosis, clubbing or edema. LABORATORY DATA: White count of 8.1 an d hemoglobin 10.2. Creatinine is 0.9. ASSESSMENT: 1. Left leg nonhealing ulcer. 2. Bladder cancer. 3. Ovarian cancer. 4. Coronary artery disease. 5. Chronic back pain. 6. Pacemaker. 7. Port-A-Cath. 8. Multiple sclerosis. PLAN: The patient is currently comfortable. She is being followed by Surgery. She is on Percocet for pain. She is going to continue with pregabalin for her neuropathy. The patient is on Zanaflex. She is on a heart healthy diet. She may be getting a debridement of her ulcer. She will most likely need biopsy to be done to rule out pyoderma gangrenosa. She is complaining of constipation. I will add MiraLax to her regimen. Ronal Eaton MD
--- NOTE | 2017-05-28 12:34 | CP.PCM.PCO ---
Physician Communication Note - Physician Communication Note Physician Communication Note: Plan OR Debridement Monday05/30/2017
--- NOTE | 2017-05-28 14:09 | PN ---
DATE: 05/28/2017 SUBJECTIVE: The patient is in bed in no acute distress, nontoxic. PHYSICAL EXAMINATION: VITAL SIGNS: On exam temperature is 98, blood pressure is 160/80, respiratory rate of 20, and heart rate of 95. HEENT: Unremarkable. NECK: Supple. LUNGS: Have decreased breath sounds. HEART: Normal S1 and S2. ABDOMEN: Soft and nontender. LABORATORY EXAMINATION: Reveals a white count of 8.1, hemoglobin of 10, and platelets of 384. BUN of 16 and creatinine 0.9. RPR is nonreactive. Blood cultures, no growth. Leg cultures, no growth. The body fluid culture is pending. Review of orders reveals the patient to be on vancomycin. ASSESSMENT AND PLAN: He is a 61-year-old female with urinary bladder-urethral cancer, ovarian cancer, multiple sclerosis, cardiomyopathy, pacemaker, right-sided Port-A-Cath admitted with a left lower leg multiple ulcers, must rule out underlying osteomyelitis, peripheral artery disease, must also rule out atypical infections such as acid-fast, fungal, Nocardia, these ulcers, there 3 ulcers that have been present, should have a biopsy, sent for pathology, doubt pyoderma gangrenosum, however, should have AFB smear and cultures, modified acid-fast smear and cultures for Nocardia, fungal smears and cultures, Gram stain routine smears and Gram stain routine cultures in addition to pathology, to resolve this issue of multiple ulcers in this patient, with multiple sclerosis, underlying malignancy has had chemotherapy, currently on vancomycin. We will check on the local cultures. These ulcers have been present for over a year, chronic and atypical infections is in the differential as stated. Tyler Anglin MD
[2017-05-28] MEDS: Meropenem 1 GM in Dextrose 5% In Water 100 ML IVPB SCH (21:40)
[2017-05-29] MEDS: Meropenem 1 GM in Dextrose 5% In Water 100 ML IVPB SCH ×3 (05:49→21:59)
--- NOTE | 2017-05-29 08:23 | CP.PCM.PN ---
Subjective - Date & Time of Evaluation Date of Evaluation: 05/29/17 Time of Evaluation: 08:20 - Subjective Subjective: PGY1 Note for Dr. Navarro Patient seen and examined at bedside. Doing well with no complaints at this time. Tolerating diet. Ambulating Objective - Vital Signs/Intake and Output Vital Signs (last 24 hours): Temp Pulse Resp BP Pulse Ox 98.0 F 80 20 116/75 97 05/29/17 07:30 05/29/17 07:30 05/29/17 07:30 05/29/17 07:30 05/29/17 07:30 Intake and Output: 05/29/17 05/29/17 06:59 18:59 Intake Total 1020 Output Total 1000 Balance 20 - Medications Medications: Current Medications Acetaminophen (Tylenol 325mg Tab) 650 mg PO Q6H PRN PRN Reason: Fever >100.4 F Ascorbic Acid (Vitamin C 500 Mg Tab) 250 mg PO DAILY [facility] Last Admin: 05/28/17 10:34 Dose: 250 mg Collagenase (Santyl) 0 gm TOP DAILY [facility] Last Admin: 05/28/17 11:45 Dose: 1 applic Home Med (Home Med) 1 unit INJ MWF [facility] Vancomycin HCl (Vancomycin 1gm) 1 gm in 250 mls @ 167 mls/hr IVPB Q12H [facility] PRN Reason: Protocol Last Admin: 05/28/17 23:32 Dose: 167 mls/hr Meropenem 1 gm/ Dextrose 100 mls @ 100 mls/hr IVPB Q8 [facility] PRN Reason: Protocol Stop: 06/06/17 22:01 Last Admin: 05/29/17 05:49 Dose: 100 mls/hr Oxycodone/Acetaminophen (Percocet 5/325 Mg Tab) 1 tab PO Q4H PRN PRN Reason: Pain, moderate (4-7) Stop: 05/29/17 23:35 Last Admin: 05/28/17 10:37 Dose: 1 tab Polyethylene Glycol (Miralax) 17 gm PO BID [facility] Last Admin: 05/28/17 18:36 Dose: 17 gm Pregabalin (Lyrica) 225 mg PO BID [facility] Last Admin: 05/28/17 18:36 Dose: 225 mg Tizanidine HCl (Zanaflex) 4 mg PO HS [facility] Last Admin: 05/28/17 21:41 Dose: 4 mg - Labs Labs: 05/27/17 06:15 05/27/17 06:15 PT 14.6 SECONDS (9.4-12.5) H 05/26/17 20:20 INR 1.33 (0.93-1.08) H 05/26/17 20:20 - Constitutional Appears: Non-toxic, No Acute Distress - Head Exam Head Exam: ATRAUMATIC, NORMAL INSPECTION, NORMOCEPHALIC - Eye Exam Eye Exam: EOMI Pupil Exam: NORMAL ACCOMODATION - ENT Exam ENT Exam: Mucous Membranes Moist - Respiratory Exam Respiratory Exam: Clear to Ausculation Bilateral, NORMAL BREATHING PATTERN - Cardiovascular Exam Cardiovascular Exam: REGULAR RHYTHM - GI/Abdominal Exam GI & Abdominal Exam: Soft, Normal Bowel Sounds. absent: Distended, Tenderness - Extremities Exam Additional comments: multiple LLE ulcers - Neurological Exam Neurological Exam: Alert, Awake, Oriented x3 - Psychiatric Exam Psychiatric exam: Normal Affect, Normal Mood - Skin Skin Exam: Dry, Intact, Normal Color, Warm Assessment and Plan - Assessment and Plan (Free Text) Assessment: 61F with LLE ulcers Plan: * OR tomorrow * NPO past MN * Cont. Merem and Vanco * Further reccs per Dr. Navarro
[2017-05-29] MEDS: Collagenase 250 Units/gm Ointment(30 gm) TOP SCH (11:30)
[2017-05-29] MEDS: Vancomycin 1gm in NS 250ml 1 GM/250 ML BAG IVPB SCH ×2 (11:30→23:13)
[2017-05-29] MEDS: Oxycodone/Acetaminophen 5/325 mg Tab PO PRN ×2 (11:30→16:54)
[2017-05-29] MEDS: POLYETHYLENE GLYCOL 3350 17 GM/Dose PACKET PO SCH ×2 (11:30→16:59)
[2017-05-29] MEDS: COPAXONE 40 MG/ML INJ SCH (12:22)
--- NOTE | 2017-05-29 13:26 | US ---
PROCEDURE: Lower extremity GIN exam HISTORY: Peripheral vascular disease with pain and ulceration. Previous smoker PHYSICIAN(S): Kwame Mcneal MD. FINDINGS: The resting GIN's are normal: right, 1.15and left, 1.20. The brachial systolic pressures are symmetric. The high thigh pressures and waveforms are relatively normal. The calf PVR waveforms augment normally. No significant gradients are noted across the thighs. The ankle and metatarsal waveforms are relatively normal and symmetric. No significant pressure gradients are noted across the lower legs. IMPRESSION: 1. Normal GIN and PVR examination at rest.
[2017-05-29] MEDS ORDERED: Cefepime IV 2 gm in NS 2 GM/100 ML BAG IVPB SCH (14:00)
--- NOTE | 2017-05-29 18:00 | CARD ---
APPROVED REPORT EKG Measurement Heart [id number] <Conclusion> Electronic ventricular pacemaker
--- NOTE | 2017-05-29 18:10 | CP.PCM.PN ---
Subjective - Date & Time of Evaluation Date of Evaluation: 05/29/17 Time of Evaluation: 12:10 - Subjective Subjective: Comfortable, no fevers, not in distress, still with some pain in the left leg but feels better. Objective - Vital Signs/Intake and Output Vital Signs (last 24 hours): Temp Pulse Resp BP Pulse Ox 98.0 F 80 20 116/75 97 05/29/17 07:30 05/29/17 07:30 05/29/17 07:30 05/29/17 07:30 05/29/17 07:30 Intake and Output: 05/29/17 05/29/17 06:59 18:59 Intake Total 1020 Output Total 1000 Balance 20 - Medications Medications: Current Medications Acetaminophen (Tylenol 325mg Tab) 650 mg PO Q6H PRN PRN Reason: Fever >100.4 F Ascorbic Acid (Vitamin C 500 Mg Tab) 250 mg PO DAILY [facility] Last Admin: 05/28/17 10:34 Dose: 250 mg Collagenase (Santyl) 0 gm TOP DAILY [facility] Last Admin: 05/28/17 11:45 Dose: 1 applic Home Med (Home Med) 1 unit INJ MWF [facility] Vancomycin HCl (Vancomycin 1gm) 1 gm in 250 mls @ 167 mls/hr IVPB Q12H [facility] PRN Reason: Protocol Last Admin: 05/28/17 23:32 Dose: 167 mls/hr Meropenem 1 gm/ Dextrose 100 mls @ 100 mls/hr IVPB Q8 [facility] PRN Reason: Protocol Stop: 06/06/17 22:01 Last Admin: 05/29/17 05:49 Dose: 100 mls/hr Oxycodone/Acetaminophen (Percocet 5/325 Mg Tab) 1 tab PO Q4H PRN PRN Reason: Pain, moderate (4-7) Stop: 05/29/17 23:35 Last Admin: 05/28/17 10:37 Dose: 1 tab Polyethylene Glycol (Miralax) 17 gm PO BID [facility] Last Admin: 05/28/17 18:36 Dose: 17 gm Pregabalin (Lyrica) 225 mg PO BID [facility] Last Admin: 05/28/17 18:36 Dose: 225 mg Tizanidine HCl (Zanaflex) 4 mg PO HS [facility] Last Admin: 05/28/17 21:41 Dose: 4 mg - Labs Labs: 05/27/17 06:15 05/27/17 06:15 PT 14.6 SECONDS (9.4-12.5) H 05/26/17 20:20 INR 1.33 (0.93-1.08) H 05/26/17 20:20 - Constitutional Appears: Non-toxic, No Acute Distress - Head Exam Head Exam: NORMAL INSPECTION - Respiratory Exam Respiratory Exam: Decreased Breath Sounds - Cardiovascular Exam Cardiovascular Exam: +S1, +S2 - GI/Abdominal Exam GI & Abdominal Exam: Soft. absent: Tenderness - Extremities Exam Additional comments: left leg with dressings in place Assessment and Plan - Assessment and Plan (Free Text) Plan: Assessment chronic left leg ulcers, infected with Pseudomonas and Proteus mirabilis, R/O fungal, myocabacterial, nocardial infection urinary bladder / urethral cancer ovarian cancer multiple sclerosis S/P pacemaker placement S/P right sided port-a-cath placement Plan Continue Merrem and october d/c Vancomycin pending debridement with OR pathology and cultures (planned for tomorrow) - should send for AFB smears, fungal smear and cx as well as pathology follow up HIV tests, Hepatitis profile will monitor clinically
--- NOTE | 2017-05-29 19:30 | PN ---
DATE: SUBJECTIVE: The patient is a 61-year old, seen and examined, who was admitted because of worsening cellulitis of her right kyle, wound deep to the point that her tendon was visible and was admitted in Med/Surg for IV antibiotic. PHYSICAL EXAMINATION GENERAL: She is awake, alert, oriented, and communicative. VITAL SIGNS: She is afebrile, pulse 80, respirations 20, blood pressure 116/75. LUNGS: Bilateral fair airflow. No rhonchi or crackles. HEART: S1 and S2 audible. ABDOMEN: Soft, nontender. No rebound. No guarding. NEUROLOGIC: The patient is awake, alert, oriented, and communicative. LABORATORY DATA: Her ESR is 123. Chemistry; sodium 142, potassium 3.8, chloride 106, CO2 31, BUN 16, creatinine 0.9, and blood sugar of 96. She had wound culture that shows Pseudomonas aeruginosa and Proteus mirabilis. ASSESSMENT: 1. History of cancer bladder, history of ovarian cancer, status post chemo end of 04/2017. 2. History of multiple sclerosis. 3. Multiple cutaneous lesion on her right kyle and one of them is deeper than the other. PLAN: The patient is currently on meropenem. We will give her analgesic. She is on Protonix. She is on vancomycin. She is scheduled to have debridement done in a.m. Kimberley Hernadez MD
[2017-05-30] MEDS: Pantoprazole 40 mg EC Tab PO SCH (05:56)
[2017-05-30] MEDS: Meropenem 1 GM in Dextrose 5% In Water 100 ML IVPB SCH ×2 (05:56→14:27)
[2017-05-30] MEDS ORDERED: Pantoprazole 40 mg EC Tab PO SCH (06:00)
[2017-05-30 06:50] LABS: HEMATOCRIT 32.5 % (36.0-48.0); MEAN CELL VOLUME 92.3 fl (80.0-105.0); MEAN CORPUSCULAR HGB CONC 31.4 g/dl (31.0-37.0); MEAN PLATELET VOLUME 9.1 fl (7.0-11.0); RED CELL DISTRIBUTION WIDTH 15.2 % (11.5-14.5); WHITE BLOOD COUNT 8.1 10^3/ul (4.5-11.0)
[2017-05-30 07:32] LABS: ALB/GLOB RATIO 0.9 (1.1-1.8); ALKALINE PHOSPHATASE 79 U/L (38-126); ALT/SGPT 30 U/L (7-56); AST/SGOT 24 U/L (14-36); BILIRUBIN,TOTAL 0.1 mg/dL (0.2-1.3); BLOOD UREA NITROGEN 16 mg/dL (7-21); CALCIUM 9.3 mg/dL (8.4-10.5); CARBON DIOXIDE 27 mmol/L (21-33); CHLORIDE 108 mmol/L (98-107); GFR AFRICAN-AMERICAN > 60; GLUCOSE,RANDOM 102 mg/dL (70-110); POTASSIUM 3.9 mmol/L (3.6-5.0); SODIUM 142 mmol/L (132-148); TOTAL PROTEIN 6.4 g/dL (5.8-8.3)
--- NOTE | 2017-05-30 08:34 | RAD ---
HISTORY: pre-op COMPARISON: 06/13/2012 FINDINGS: LUNGS: No active pulmonary disease. PLEURA: No significant pleural effusion identified, no pneumothorax apparent. CARDIOVASCULAR: Normal. OSSEOUS STRUCTURES: No significant abnormalities. VISUALIZED UPPER ABDOMEN: Normal. OTHER FINDINGS: Dual lead pacemaker IMPRESSION: No active disease.
[2017-05-30] MEDS: POLYETHYLENE GLYCOL 3350 17 GM/Dose PACKET PO SCH ×2 (09:52→17:46)
[2017-05-30] MEDS: Collagenase 250 Units/gm Ointment(30 gm) TOP SCH (09:52)
[2017-05-30] MEDS: Vancomycin 1gm in NS 250ml 1 GM/250 ML BAG IVPB SCH (10:57)
[2017-05-30] MEDS ORDERED: Bupivacaine 0.5% Inj(30mL) ONE (12:24)
[2017-05-30] MEDS ORDERED: Propofol 10 mg/ml Inj (20 ML) ONE (12:24)
[2017-05-30] MEDS ORDERED: Midazolam 2 MG/2 ML VIAL ONE (12:25)
[2017-05-30] MEDS ORDERED: Lactated Ringer's 1,000 ML IV SCH (12:45)
[2017-05-30] MEDS ORDERED: Lidocaine 1% Inj (20ml) ONE (12:47)
--- NOTE | 2017-05-30 13:26 | PCM.SURG1 ---
Surgeon's Initial Post Op Note - Surgeon's Notes Surgeon: Dr. Navarro Flexo Folder Gluer Operator: PGY1, May PGY1 Type of Anesthesia: General IV Pre-Operative Diagnosis: Left lower extremity stage 4 ulcers Operative Findings: 3 ulcers w/ necrotic area. stage 3 sharp debridement. sizes [id number], 4x3cm, 5x3cm Post-Operative Diagnosis: as above Operation Performed: left lower extremity stage 3 sharp debridement with washout Specimen/Specimens Removed: wound culture LLE Estimated Blood Loss: EBL {In ML}: 15 Blood Products Given: N/A Drains Used: No Drains Post-Op Condition: Good Date of Surgery/Procedure: 05/30/17 Time of Surgery/Procedure: 12:30
[2017-05-30] MEDS: HYDROmorphone 2 mg/ml ISec IVP PRN ×2 (17:41→22:02)
--- NOTE | 2017-05-30 18:13 | PN ---
DATE: 05/30/2017 SUBJECTIVE: The patient seen earlier today. No fevers and no chills. OBJECTIVE: VITAL SIGNS: On exam, temperature is 98, blood pressure is 120/70, and respiratory rate 16. HEENT: Unremarkable. NECK: Supple. LUNGS: Have decreased breath sounds. HEART: Normal S1, S2. ABDOMEN: Soft, nontender. LABORATORY EXAMINATION: Reveals the patient's white count is 8.1, hemoglobin of 10, and platelets of 456. Chemistry reveals a BUN of 16 and creatinine of 0.8. Urinalysis is noted and rather a vancomycin trough is 14. HIV is negative. Microbiology is noted from the left leg with Pseudomonas aeruginosa and Proteus for surgery today, had debridement of the left leg multiple ulcers by Dr. Navarro. ASSESSMENT AND PLAN: This is a 61-year-old female, seen earlier in [facility], bed 2, with chronic left leg ulcers, infected with Pseudomonas and Proteus, rule out fungal, mycobacterium, Nocardia in a patient with urinary bladder, urethral cancer, ovarian cancer, multiple sclerosis, on meropenem, and pathology and cultures as discussed for AFB smears, fungal smears and cultures, routine Gram stain and cultures in addition to pathology, and we will follow with you. Tyler Anglin MD
[2017-05-30] MEDS: Meropenem IV 1 gm in NS 50 ML IVPB SCH (21:52)
[2017-05-31] MEDS: Vancomycin 1gm in NS 250ml 1 GM/250 ML BAG IVPB SCH ×2 (04:15→11:16)
[2017-05-31] MEDS: Pantoprazole 40 mg EC Tab PO SCH (06:08)
[2017-05-31] MEDS: Meropenem IV 1 gm in NS 50 ML IVPB SCH ×3 (06:08→21:56)
--- NOTE | 2017-05-31 08:18 | PN ---
DATE: 05/30/2017 SUBJECTIVE: The patient is a 61-year-old seen and examined, lying in bed, awaiting going to OR for debridement. No nausea or vomiting. No diarrhea. No fever or chills. PHYSICAL EXAMINATION: VITAL SIGNS: She is afebrile, pulse 85, respirations 18 and blood pressure 117/75. LUNGS: Bilateral fair airflow. No rhonchi or crackle. HEART: S1 and S2 audible. ABDOMEN: Soft. She has ileal conduit functioning, complaining of suprapubic discomfort. She has right lower kyle deep ulcer with necrotic tissue. LABORATORY EXAMINATION: WBC 8.1, hemoglobin 10.2, hematocrit 32.5, and platelets 456. Chemistry: Sodium 142, potassium 3.9, chloride 108, CO2 of 27, BUN 16, creatinine 0.8 and blood sugar of 102. LFT's are within normal limits. Her CRP is 15. Her wound culture positive for pseudomonas and Proteus mirabilis. ASSESSMENT: 1. Right kyle necrotic ulcer. 2. Multiple sclerosis. 3. Hypertension. 4. Cardiomyopathy. 5. Chronic constipation. PLAN: Currently, the patient is on meropenem. She is on MiraLax. I will give her one dose of lactulose and will reevaluate the patient in a.m. for OR cultures and make disposition planning according to the culture. Kimberley Hernadez MD
[2017-05-31] MEDS: HYDROmorphone 2 mg/ml ISec IVP PRN ×3 (09:18→19:38)
[2017-05-31] MEDS: COPAXONE 40 MG/ML INJ SCH (11:13)
[2017-05-31] MEDS: POLYETHYLENE GLYCOL 3350 17 GM/Dose PACKET PO SCH ×2 (11:14→17:54)
[2017-05-31] MEDS: Collagenase 250 Units/gm Ointment(30 gm) TOP SCH (11:14)
[2017-05-31 12:03] LABS: HEPATITIS C VIRAL RNA QUAL Not detected
--- NOTE | 2017-05-31 12:09 | CP.PCM.PN ---
Subjective - Date & Time of Evaluation Date of Evaluation: 05/31/17 Time of Evaluation: 12:06 - Subjective Subjective: PGY1 Note for Dr. Navarro Patient seen and examined at bedside. Doing well with no complaints at this time. Tolerating diet. Ambulating Objective - Vital Signs/Intake and Output Vital Signs (last 24 hours): Temp Pulse Resp BP Pulse Ox 98.7 F 83 20 106/71 97 05/31/17 07:30 05/31/17 07:30 05/31/17 07:30 05/31/17 07:30 05/31/17 07:30 - Medications Medications: Current Medications Acetaminophen (Tylenol 325mg Tab) 650 mg PO Q6H PRN PRN Reason: Fever >100.4 F Last Admin: 05/29/17 22:01 Dose: 650 mg Ascorbic Acid (Vitamin C 500 Mg Tab) 250 mg PO DAILY [facility] Last Admin: 05/31/17 11:16 Dose: 250 mg Collagenase (Santyl) 0 gm TOP DAILY [facility] Last Admin: 05/31/17 11:14 Dose: Not Given Home Med (Home Med) 1 unit INJ MWF [facility] Last Admin: 05/31/17 11:13 Dose: 1 unit Hydromorphone HCl (Dilaudid) 1 mg IVP Q4H PRN PRN Reason: Pain, moderate (4-7) Last Admin: 05/31/17 09:18 Dose: 1 mg Vancomycin HCl (Vancomycin 1gm) 1 gm in 250 mls @ 167 mls/hr IVPB Q12H [facility] PRN Reason: Protocol Last Admin: 05/31/17 11:16 Dose: 167 mls/hr Meropenem (Merrem Iv 1 Gm Premix) 50 mls @ 100 mls/hr IVPB Q8 [facility] PRN Reason: Protocol Stop: 06/06/17 23:59 Last Admin: 05/31/17 06:08 Dose: 100 mls/hr Lactulose (Enulose) 20 gm PO HS [facility] Last Admin: 05/30/17 21:52 Dose: 20 gm Pantoprazole Sodium (Protonix Ec Tab) 40 mg PO 0600 [facility] Last Admin: 05/31/17 06:08 Dose: 40 mg Polyethylene Glycol (Miralax) 17 gm PO BID [facility] Last Admin: 05/31/17 11:14 Dose: Not Given Pregabalin (Lyrica) 225 mg PO BID [facility] Last Admin: 05/31/17 11:16 Dose: 225 mg Tizanidine HCl (Zanaflex) 4 mg PO HS [facility] Last Admin: 05/30/17 21:52 Dose: 4 mg - Labs Labs: 05/30/17 06:15 05/30/17 06:15 PT 14.6 SECONDS (9.4-12.5) H 05/26/17 20:20 INR 1.33 (0.93-1.08) H 05/26/17 20:20 - Constitutional Appears: Well, Non-toxic, No Acute Distress - Head Exam Head Exam: ATRAUMATIC, NORMAL INSPECTION, NORMOCEPHALIC - Eye Exam Eye Exam: EOMI Pupil Exam: NORMAL ACCOMODATION - ENT Exam ENT Exam: Mucous Membranes Moist - Respiratory Exam Respiratory Exam: Clear to Ausculation Bilateral, NORMAL BREATHING PATTERN - Cardiovascular Exam Cardiovascular Exam: REGULAR RHYTHM - GI/Abdominal Exam GI & Abdominal Exam: Soft, Normal Bowel Sounds. absent: Distended, Tenderness - Extremities Exam Extremities Exam: Tenderness (minimal) Additional comments: dressing clean dry and intact. 3 healing ulcers - Neurological Exam Neurological Exam: Alert, Awake, Oriented x3 - Psychiatric Exam Psychiatric exam: Normal Affect, Normal Mood - Skin Skin Exam: Dry, Intact, Normal Color, Warm Assessment and Plan - Assessment and Plan (Free Text) Assessment: 61F with LLE ulcers Plan: * clear for d/c from surgical standpoint. * Dressing change instructions provided to patient * wet 4x4 dressings, apply to wounds. Place dry 4x4 on top of wet 4x4. Wrap in dry Kerlex roll. Change dressing daily * ok to shower * Follow up with Dr. Navarro in 1-2 weeks
--- NOTE | 2017-05-31 12:48 | CP.PCM.PCO ---
Physician Communication Note - Physician Communication Note Physician Communication Note: Wet to dry dreessing qday/Home Rx
[2017-05-31 16:24] LABS: HEP B VIRUS DNA <1.30 Log IU/mL; HEP B VIRUS DNA <20 IU/mL
--- NOTE | 2017-05-31 18:06 | PN ---
DATE: 05/31/2017 SUBJECTIVE: The patient is in bed, in no acute distress. PHYSICAL EXAMINATION: VITAL SIGNS: Temperature is 98, blood pressure is 106/70, respiratory rate of 20. HEENT: Unremarkable. NECK: Supple. LUNGS: Have decreased breath sounds. HEART: Normal S1, S2. ABDOMEN: Soft, nontender. Laboratory examination reveals a white count of 8.1, hemoglobin of 10, platelets of 456. Chemistry reveals a BUN of 16, creatinine of 0.8, vancomycin trough of 14. Culture results are noted. Pathology is pending. ASSESSMENT AND PLAN: This is a 61-year-old female with chronic left leg ulcers, Pseudomonas proteus, must rule out fungal versus mycobacterium and nocardia in a patient with urinary bladder and urethral cancer, ovarian cancer, multiple sclerosis, on meropenem. We are waiting for pathology and cultures from the OR. Currently on vancomycin and meropenem. We will discontinue the vancomycin if further cultures are gram-negative. There is no evidence of MRSA. We will check on the identification of gram-negative javier and the sensitivity to pseudomonas and proteus. These are most likely colonized and not pathogens of these chronic ulcers. Tyler Anglin MD
--- NOTE | 2017-05-31 19:05 | CP.PCM.PCO ---
Physician Communication Note - Physician Communication Note Physician Communication Note: Lymphadenopathy to be biopsied tomorrow
[2017-05-31] MEDS ORDERED: Iohexol 240 (50 ml) ONE (20:13)
--- NOTE | 2017-05-31 21:33 | PN ---
DATE: SUBJECTIVE: The patient is a 61-year-old, seen and examined, complaining of pain in the lumps in the groin. She also complains of lower abdominal pain. Denies any nausea or vomiting. PHYSICAL EXAMINATION VITAL SIGNS: She is afebrile, pulse 103, respirations 20 and blood pressure 102/64. LUNGS: Bilateral fair airflow. No rhonchi or crackle. HEART: S1 and S2 audible. ABDOMEN: Soft. She has 2 painful lumps in each groin, they are fixed. EXTREMITIES: Bilateral leg, no edema. She has left leg wrapped in the dressing that had debridement done. LABORATORY DATA: WBC is 8.1, hemoglobin 10.2, hematocrit 32.5 and platelet of 456. Chemistry: Sodium 142, potassium 3.9, chloride 108, CO2 27, BUN 16, creatinine 0.8 and blood sugar of 102. ASSESSMENT: 1. Left leg necrotic ulcers status post debridement. 2. Painful bilateral inguinal lymph node rule out malignant lymphadenopathy. 3. Anemia. 4. History of multiple sclerosis. 5. 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 PLAN: We will order for CT scan of the abdomen and pelvis with p.o. contrast to further know the details of lymphadenopathy, if this malignant spread or some collection. Continue antibiotics. We will follow up OR culture. Kimberley Hernadez MD
[2017-05-31] MEDS ORDERED: Iohexol 350 MG/100 ML VIAL ONE (22:23)
--- NOTE | 2017-06-01 02:20 | CT ---
EXAM: CT Abdomen and Pelvis With Intravenous Contrast EXAM DATE/TIME: 05/31/2017 7:02 PM CLINICAL HISTORY: The patient age is 61 years old and is female; Pain; Abdominal pain; Generalized; Additional info: Painfull inguinal lymph nodes Facility exam id and description: Ct abdpelc abd pelvis po iv contrast TECHNIQUE: Axial computed tomography images of the abdomen and pelvis with intravenous contrast. All CT scans at this facility use one or more dose reduction techniques, viz.: automated exposure control; ma/kV adjustment per patient size (including targeted exams where dose is matched to indication; i.e. head); or iterative reconstruction technique. Coronal and sagittal reformatted images were created and reviewed. CONTRAST: 93 mL of OMNI 350 administered intravenously. COMPARISON: No relevant prior studies available. FINDINGS: Lower thorax: There is cardiomegaly. Atelectatic changes are visualized at the lung bases. Leads are visualized within the heart. ABDOMEN: Liver: No mass. Gallbladder and bile ducts: No calcified stones. No ductal dilation. Pancreas: Normal contour, without acute peripancreatic stranding. Spleen: No splenomegaly. Adrenals: No mass. Kidneys and ureters: There is bilateral hydronephrosis. The bladder is absent with urinary diversion and ileal conduit. Stomach and bowel: There is mild fecal distention of the colon. An ostomy is seen within the right ventral lower abdominal wall. Appendix: The appendix is poorly visualized. PELVIS: Bladder: See above. Reproductive: Within the central and left side of the pelvis, there is a multiloculated cystic mass measuring 7.7 x 9.5 x 8.2 cm, concerning for neoplasm. This may be ovarian in etiology. Abscess is within the differential. Linear hyperdense calcifications or postoperative changes are identified lateral to this mass.The uterus is not visualized. ABDOMEN and PELVIS: Intraperitoneal space: There is a small amount of free fluid within the pelvis. Bones/joints: Degenerative changes are identified within the lumbar spine. Soft tissues: There is stranding and foci of gas within the left ventral abdominal subcutaneous tissues, which may be infectious, inflammatory, or postoperative. Vasculature: No abdominal aortic aneurysm. Mild atherosclerotic changes. Lymph nodes: Retroperitoneal lymphadenopathy is identified. In the aortocaval region, one of the enlarged lymph nodes measures 1.4 x 0.9 cm. Mildly enlarged inguinal lymph nodes are also seen bilaterally. A left inguinal lymph node measures 1.9 cm in length. IMPRESSION: 1. Within the central and left side of the pelvis, there is a multiloculated cystic mass measuring 7.7 x 9.5 x 8.2 cm, concerning for neoplasm. Abscess is within the differential. This may be ovarian in etiology. 2. Retroperitoneal lymphadenopathy is identified. Mildly enlarged inguinal lymph nodes are also seen bilaterally. PET/CT is recommended. 3. There is a small amount of free fluid within the pelvis. 4. There is bilateral hydronephrosis. The bladder is absent with urinary diversion and an ileal conduit. 5. There is mild fecal distention of the colon. 6. There is cardiomegaly. 7. Additional CT findings described above.
[2017-06-01] MEDS: Meropenem IV 1 gm in NS 50 ML IVPB SCH ×3 (05:55→21:51)
[2017-06-01] MEDS: Pantoprazole 40 mg EC Tab PO SCH (05:56)
[2017-06-01] MEDS ORDERED: Lidocaine 1% Inj (20ml) ONE (09:42)
[2017-06-01] MEDS ORDERED: Bupivacaine 0.5% Inj(30mL) ONE (09:42)
[2017-06-01] MEDS ORDERED: Propofol 10 mg/ml Inj (20 ML) ONE ×2 (10:07→11:29)
[2017-06-01] MEDS ORDERED: Midazolam 2 MG/2 ML VIAL ONE ×2 (10:07→10:12)
--- NOTE | 2017-06-01 11:54 | PCM.SURG1 ---
Surgeon's Initial Post Op Note - Surgeon's Notes Surgeon: Dr. Navarro Pot Builder: Bhumi May PGY 2, PGY4 Type of Anesthesia: General Endo Pre-Operative Diagnosis: Lymphadenopathy b/l Operative Findings: enlarged lymph nodes b/l Post-Operative Diagnosis: Same Operation Performed: b/l ltmph nodes biopsy Specimen/Specimens Removed: b/l lymph nodes Estimated Blood Loss: EBL {In ML}: 20 Blood Products Given: N/A Drains Used: No Drains Post-Op Condition: Good Date of Surgery/Procedure: 06/01/17 Time of Surgery/Procedure: 11:53
[2017-06-01] MEDS ORDERED: Sodium Chloride 0.9% 1,000 ML IV SCH (12:00)
[2017-06-01] MEDS: HYDROmorphone 2 mg/ml ISec IVP PRN ×3 (13:42→21:42)
[2017-06-01] MEDS: POLYETHYLENE GLYCOL 3350 17 GM/Dose PACKET PO SCH ×2 (14:45→18:52)
[2017-06-01] MEDS: Collagenase 250 Units/gm Ointment(30 gm) TOP SCH (14:46)
--- NOTE | 2017-06-01 15:16 | PN ---
DATE: SUBJECTIVE: The patient is a 61-year-old seen and examined biopsy of painful inguinal lumps. PHYSICAL EXAMINATION: VITAL SIGNS: She is afebrile, pulse 81, respirations 16, and blood pressure 110/71. LUNGS: Bilateral fair airflow. No rhonchi or crackles. HEART: S1 and S2 audible. ABDOMEN: Soft. Nontender. No rebound. No guarding. NEUROLOGIC: The patient is awake, alert, and oriented. She has ileal conduit that is draining clear urine. LABORATORY DATA: WBC is 8.1, hemoglobin 10.2, hematocrit 32.5 and platelet of 456. Chemistry: Sodium 142, potassium 3.9, chloride 108, CO2 27, BUN 16, creatinine 0.8 and blood sugar of 102. ASSESSMENT: 1. Left kyle necrotic ulcer, status post biopsy. 2. Status post biopsy of inguinal lump. 3. Pseudomonas aeruginosa wound infection. CT scan of the abdomen and pelvis done yesterday shows cystic mass measuring 7.7 x 9.5 x 8.2 cm, retroperitoneal lymphadenopathy, mildly enlarging inguinal lymph nodes, and small amount of free fluid within the pelvis. There is bilateral hydronephrosis, status post cystectomy. PLAN: We will continue on current antibiotics. We will follow up biopsy and we will get Dr. Lake for consult. We will follow closely with you. Kimberley Hernadez MD
--- NOTE | 2017-06-01 23:57 | PN ---
DATE: 06/01/2017 SUBJECTIVE: The patient seen in bed, no acute distress, nontoxic. PHYSICAL EXAMINATION VITAL SIGNS: Temperature is 98, blood pressure 105/70 and respiratory rate of 16. HEENT: Unremarkable. NECK: Supple. LUNGS: Have decreased breath sounds. HEART: Normal S1 and S2. ABDOMEN: Soft and nontender. LABORATORY DATA: Reveals a white count of 8.1 and hemoglobin 10. Chemistries are noted. Microbiology is reviewed, Pseudomonas and Proteus. Review of orders reveals the patient to be on meropenem. ASSESSMENT AND PLAN: This is a 61-year-old female with chronic left leg multiple ulcers with Proteus and Pseudomonas. Her biopsy waiting for fungal smears and cultures, mycobacterium for smears and cultures modified for Nocardia for this woman with bladder, urinary bladder cancer and urethral cancer, ovarian cancer, multiple sclerosis, currently on meropenem. Awaiting for pathology reporting special stain cultures and staining. Tyler Anglin MD
[2017-06-02] MEDS: HYDROmorphone 2 mg/ml ISec IVP PRN ×3 (02:24→14:23)
[2017-06-02] MEDS: Pantoprazole 40 mg EC Tab PO SCH (05:39)
[2017-06-02] MEDS: Meropenem IV 1 gm in NS 50 ML IVPB SCH ×3 (05:39→22:35)
--- NOTE | 2017-06-02 08:46 | CP.PCM.PN ---
Subjective - Date & Time of Evaluation Date of Evaluation: 06/02/17 Time of Evaluation: 08:50 - Subjective Subjective: Surgery Progress Note for Dr. Navarro Pt seen and examined at bedside. No acute overnight events. Pt tolerating diet. Pain is well controlled. Pt denied CP, SOB, nausea, vomiting, diarrhea, abdominal pain, [place], fever, or chills. Objective - Vital Signs/Intake and Output Vital Signs (last 24 hours): Temp Pulse Resp BP Pulse Ox 98.6 F 102 H 20 135/90 95 06/02/17 00:00 06/02/17 00:00 06/02/17 00:00 06/02/17 00:00 06/02/17 00:00 Intake and Output: 06/02/17 06/02/17 06:59 18:59 Intake Total 1160 Output Total 2030 Balance -870 - Medications Medications: Current Medications Acetaminophen (Tylenol 325mg Tab) 650 mg PO Q6H PRN PRN Reason: Fever >100.4 F Last Admin: 05/29/17 22:01 Dose: 650 mg Ascorbic Acid (Vitamin C 500 Mg Tab) 250 mg PO DAILY [facility] Last Admin: 06/01/17 14:44 Dose: 250 mg Collagenase (Santyl) 0 gm TOP DAILY [facility] Last Admin: 06/01/17 14:46 Dose: 1 applic Home Med (Home Med) 1 unit INJ MWF [facility] Last Admin: 05/31/17 11:13 Dose: 1 unit Hydromorphone HCl (Dilaudid) 1 mg IVP Q4H PRN PRN Reason: Pain, moderate (4-7) Last Admin: 06/02/17 02:24 Dose: 1 mg Meropenem (Merrem Iv 1 Gm Premix) 50 mls @ 100 mls/hr IVPB Q8 [facility] PRN Reason: Protocol Stop: 06/06/17 23:59 Last Admin: 06/02/17 05:39 Dose: 100 mls/hr Sodium Chloride (Sodium Chloride 0.9%) 1,000 mls @ 100 mls/hr IV .Q10H [facility] Last Admin: 06/01/17 17:37 Dose: 100 mls/hr Lactulose (Enulose) 20 gm PO HS [facility] Last Admin: 06/01/17 21:45 Dose: 20 gm Ondansetron HCl (Zofran Inj) 4 mg IVP Q4H PRN PRN Reason: Nausea/Vomiting Oxycodone/Acetaminophen (Percocet 5/325 Mg Tab) 2 tab PO Q4H PRN PRN Reason: Pain, moderate (4-7) Stop: 06/04/17 11:56 Pantoprazole Sodium (Protonix Ec Tab) 40 mg PO 0600 [facility] Last Admin: 06/02/17 05:39 Dose: 40 mg Polyethylene Glycol (Miralax) 17 gm PO BID [facility] Last Admin: 06/01/17 18:52 Dose: 17 gm Pregabalin (Lyrica) 225 mg PO BID [facility] Last Admin: 06/01/17 18:52 Dose: 225 mg Tizanidine HCl (Zanaflex) 4 mg PO HS [facility] Last Admin: 06/01/17 21:45 Dose: 4 mg - Labs Labs: 05/30/17 06:15 05/30/17 06:15 PT 14.6 SECONDS (9.4-12.5) H 05/26/17 20:20 INR 1.33 (0.93-1.08) H 05/26/17 20:20 - Constitutional Appears: No Acute Distress - Head Exam Head Exam: NORMAL INSPECTION - Eye Exam Eye Exam: Normal appearance - ENT Exam ENT Exam: Normal Exam - Respiratory Exam Respiratory Exam: NORMAL BREATHING PATTERN. absent: Accessory Muscle Use, Respiratory Distress - Cardiovascular Exam Cardiovascular Exam: RRR. absent: Gallop, Rubs, Murmur - GI/Abdominal Exam GI & Abdominal Exam: Soft. absent: Distended, Guarding, Tenderness, Rebound - Extremities Exam Additional comments: 3 healing ulcers on LLE. B/l inguinal biopsy site minimal TTP, no erythema, discharge, or signs of hematoma. Dressings c/d/i - Neurological Exam Neurological Exam: Alert, Awake, Oriented x3 - Skin Skin Exam: Dry, Intact, Normal Color, Warm Assessment and Plan - Assessment and Plan (Free Text) Assessment: 61 yo F is s/p LLE wound debridement POD#3 and b/l inguinal lymph node biopsy POD#1 Plan: - Clear for D/C from surgical standpoint - Cont Abx per ID/primary - Will DW case management regarding visiting nurse for wound care - F/u lymph node biopsy - F/u outpatient with Dr. Navarro in 1-2 weeks - DW Dr. Ramon Gilman, PGY1
--- NOTE | 2017-06-02 10:27 | CON ---
DATE: REQUESTING PHYSICIAN: Kimberley Hernadez MD REASON FOR CONSULTATION: History of bladder cancer, ovarian cancer, pelvic mass. HISTORY OF PRESENT ILLNESS: Ms. Head is a 61-year-old female admitted to the hospital with a left kyle bone pain. She is currently on IV antibiotics for lower extremity cellulitis. She also had fever up to 101. She has a history of bladder cancer, initially diagnosed in 2008. She underwent BCG instillation. She underwent chemoradiation, I believe, due to progression of bladder cancer and underwent cystectomy and ileoconduit formation. Her last chemotherapy was in 04/2016. At the time of surgery, she was also diagnosed with ovarian cancer. She has been treated at [facility]. CT abdomen and pelvis done during this hospitalization showed a large cystic mass in the pelvis 9.5 cm and bilateral inguinal lymphadenopathy, left-sided 1.9 cm and retroperitoneal lymph adenopathy. She underwent bilateral lymph node biopsy with Dr. Navarro yesterday. She is complaining of abdominal pain, diffuse, achy. No nausea. No vomiting. No fevers, now on IV antibiotics. PAST MEDICAL HISTORY: Multiple sclerosis, history of bladder cancer, ovarian cancer, peptic ulcer disease, status post PEG placement because of dysphagia, cardiomyopathy, and coronary artery disease. ALLERGIES: NO KNOWN DRUG ALLERGIES. PAST SURGICAL HISTORY: Cystectomy with ileoconduit formation, status post hysterectomy. HOME MEDICATION: Lyrica, vitamin D, and Zanaflex. SOCIAL HISTORY: lives with . Denies any personal history. No history of smoking or alcohol abuse. FAMILY HISTORY: Noncontributory. No positive family history of mother and father. REVIEW OF SYSTEMS: As per HPI. Rest of the 12-point review of systems reviewed and negative. PHYSICAL EXAMINATION: GENERAL: Awake, alert, and oriented. VITAL SIGNS: Stable, afebrile temperature 98.6, heart rate is 80 per minute, respirations 15 per minute, blood pressure 120/80. Pallor positive. HEENT: Normal. NECK: No lymphadenopathy. CHEST: Air entry present, equal, and bilateral. No added sounds. CARDIOVASCULAR: S1 and S2 normal. No murmur or gallop. ABDOMEN: Soft and nontender. No hepatosplenomegaly. Conduit in place. EXTREMITIES: Left lower extremity in dressing. LABORATORY DATA: White count 8.1, hemoglobin 10.2, hematocrit 32.2, MCV 92, and platelet 456. Sodium 142, potassium 3.9, chloride 108, creatinine 0.8. Total bilirubin 0.1. AST and ALT normal. Creatinine 0.8. RPR nonreactive. HIV 1 and 2 nonreactive. Hepatitis C negative. Hepatitis C viral DNA not detected. Hepatitis B serology negative. ASSESSMENT: 1. History of bladder cancer. 2. History of ovarian cancer. 3. Coronary artery disease. 4. Chronic anemia. 5. Chronic back pain. 6. Bilateral inguinal lymphadenopathy. 7. New pelvic mass. PLAN: She is currently on IV antibiotics, followed by ID, Dr. Anglin, and Dr. Navarro did bilateral lymph node biopsy yesterday. Pathology awaited. She has big pelvic lesion. I will discuss with Dr. Kwame Mcneal if there is a possible to biopsy those solid component in the cystic lesion, might be recurrence of ovarian cancer/bladder cancer. I will do the tumor markers CA-125, CEA, and CA 19-9. I will schedule the CT/PET scan as an outpatient for further evaluation. I will await lymph node biopsy results. Anemia might be related to chronic disease. We will order the iron studies, B12, and folate level. Hepatitis serology is negative. HIV nonreactive. We will continue to follow. Discussed at length with Ms. Head the new finding of pelvic mass, she was unaware of that. She said she had a spot before last year, she was told. I discussed my further workup and plan with her. She agreed with that. Thank you Dr. Hernadez for allowing us to participate in Ms. Head's care. Antonia Lake MD
[2017-06-02] MEDS: POLYETHYLENE GLYCOL 3350 17 GM/Dose PACKET PO SCH ×3 (10:58→17:39)
[2017-06-02] MEDS: Collagenase 250 Units/gm Ointment(30 gm) TOP SCH (11:41)
[2017-06-02] MEDS ORDERED: Magnesium Citrate Oral SOL (300 ml) PO ONE (13:35)
--- NOTE | 2017-06-02 16:37 | CP.PCM.PN ---
Subjective - Date & Time of Evaluation Date of Evaluation: 06/02/17 Time of Evaluation: 12:15 - Subjective Subjective: Less pain in the left leg, no fevers overnight, no diarrhea. Objective - Vital Signs/Intake and Output Vital Signs (last 24 hours): Temp Pulse Resp BP Pulse Ox 98 F 94 H 20 133/90 98 06/02/17 09:57 06/02/17 09:57 06/02/17 09:57 06/02/17 09:57 06/02/17 09:57 Intake and Output: 06/02/17 06/02/17 06:59 18:59 Intake Total 1160 Output Total 2030 Balance -870 - Medications Medications: Current Medications Acetaminophen (Tylenol 325mg Tab) 650 mg PO Q6H PRN PRN Reason: Fever >100.4 F Last Admin: 05/29/17 22:01 Dose: 650 mg Ascorbic Acid (Vitamin C 500 Mg Tab) 250 mg PO DAILY [facility] Last Admin: 06/02/17 10:57 Dose: Not Given Collagenase (Santyl) 0 gm TOP DAILY [facility] Last Admin: 06/01/17 14:46 Dose: 1 applic Home Med (Home Med) 1 unit INJ MWF [facility] Last Admin: 05/31/17 11:13 Dose: 1 unit Hydromorphone HCl (Dilaudid) 1 mg IVP Q4H PRN PRN Reason: Pain, moderate (4-7) Last Admin: 06/02/17 09:32 Dose: 1 mg Meropenem (Merrem Iv 1 Gm Premix) 50 mls @ 100 mls/hr IVPB Q8 [facility] PRN Reason: Protocol Stop: 06/06/17 23:59 Last Admin: 06/02/17 05:39 Dose: 100 mls/hr Lactulose (Enulose) 20 gm PO HS [facility] Last Admin: 06/01/17 21:45 Dose: 20 gm Ondansetron HCl (Zofran Inj) 4 mg IVP Q4H PRN PRN Reason: Nausea/Vomiting Oxycodone/Acetaminophen (Percocet 5/325 Mg Tab) 2 tab PO Q4H PRN PRN Reason: Pain, moderate (4-7) Stop: 06/04/17 11:56 Pantoprazole Sodium (Protonix Ec Tab) 40 mg PO 0600 [facility] Last Admin: 06/02/17 05:39 Dose: 40 mg Polyethylene Glycol (Miralax) 17 gm PO BID [facility] Last Admin: 06/02/17 10:58 Dose: Not Given Pregabalin (Lyrica) 225 mg PO BID [facility] Last Admin: 06/02/17 10:58 Dose: 225 mg Tizanidine HCl (Zanaflex) 4 mg PO HS [facility] Last Admin: 06/01/17 21:45 Dose: 4 mg - Labs Labs: 05/30/17 06:15 05/30/17 06:15 PT 14.6 SECONDS (9.4-12.5) H 05/26/17 20:20 INR 1.33 (0.93-1.08) H 05/26/17 20:20 - Constitutional Appears: Non-toxic - Head Exam Head Exam: NORMAL INSPECTION - Neck Exam Neck Exam: absent: Meningismus - Respiratory Exam Respiratory Exam: Decreased Breath Sounds - Cardiovascular Exam Cardiovascular Exam: +S1, +S2 - GI/Abdominal Exam GI & Abdominal Exam: Soft. absent: Tenderness - Extremities Exam Additional comments: left leg with dressings in place Assessment and Plan - Assessment and Plan (Free Text) Plan: Assessment chronic left leg ulcers, infected with Pseudomonas and Proteus mirabilis, R/O fungal, myocabacterial, nocardial infection urinary bladder / urethral cancer ovarian cancer multiple sclerosis S/P pacemaker placement S/P right sided port-a-cath placement Plan Continue Merrem - follow up OR pathology and cultures lymph node biopsy is showing possible cancer - follow up official pathology report will monitor clinically
[2017-06-02] MEDS: COPAXONE 40 MG/ML INJ SCH (17:37)
[2017-06-02] MEDS: Oxycodone/Acetaminophen 5/325 mg Tab PO PRN (20:18)
[2017-06-03] MEDS: Pantoprazole 40 mg EC Tab PO SCH (05:44)
[2017-06-03] MEDS: Meropenem IV 1 gm in NS 50 ML IVPB SCH ×3 (05:44→22:17)
[2017-06-03] MEDS: Oxycodone/Acetaminophen 5/325 mg Tab PO PRN ×2 (06:01→13:21)
--- NOTE | 2017-06-03 08:26 | CP.PCM.PN ---
Subjective - Date & Time of Evaluation Date of Evaluation: 06/03/17 Time of Evaluation: 08:23 - Subjective Subjective: Surgery Pt s&e. Reports groin swelling and pain yesterday. Better after ice pack . Denies F/C/N/V/D/CP/SOB. + amb. Dressing changed today. Objective - Vital Signs/Intake and Output Vital Signs (last 24 hours): Temp Pulse Resp BP Pulse Ox 98.5 F 87 18 103/68 97 06/03/17 07:30 06/03/17 07:30 06/03/17 07:30 06/03/17 07:30 06/03/17 07:30 Intake and Output: 06/03/17 06/03/17 06:59 18:59 Intake Total 360 Output Total 300 Balance 60 - Medications Medications: Current Medications Acetaminophen (Tylenol 325mg Tab) 650 mg PO Q6H PRN PRN Reason: Fever >100.4 F Last Admin: 05/29/17 22:01 Dose: 650 mg Ascorbic Acid (Vitamin C 500 Mg Tab) 250 mg PO DAILY [facility] Last Admin: 06/02/17 10:57 Dose: Not Given Collagenase (Santyl) 0 gm TOP DAILY [facility] Last Admin: 06/02/17 11:41 Dose: 1 applic Home Med (Home Med) 1 unit INJ MWF [facility] Last Admin: 06/02/17 17:37 Dose: 1 unit Home Med (Home Med) 0 unit TOP DAILY [facility] Meropenem (Merrem Iv 1 Gm Premix) 50 mls @ 100 mls/hr IVPB Q8 [facility] PRN Reason: Protocol Stop: 06/06/17 23:59 Last Admin: 06/03/17 05:44 Dose: 100 mls/hr Lactulose (Enulose) 20 gm PO HS [facility] Last Admin: 06/02/17 22:35 Dose: 20 gm Ondansetron HCl (Zofran Inj) 4 mg IVP Q4H PRN PRN Reason: Nausea/Vomiting Oxycodone/Acetaminophen (Percocet 5/325 Mg Tab) 2 tab PO Q4H PRN PRN Reason: Pain, moderate (4-7) Stop: 06/04/17 11:56 Last Admin: 06/03/17 06:01 Dose: 2 tab Pantoprazole Sodium (Protonix Ec Tab) 40 mg PO 0600 [facility] Last Admin: 06/03/17 05:44 Dose: 40 mg Polyethylene Glycol (Miralax) 17 gm PO BID [facility] Last Admin: 06/02/17 17:39 Dose: Not Given Pregabalin (Lyrica) 225 mg PO BID [facility] Last Admin: 06/02/17 17:37 Dose: 225 mg Tizanidine HCl (Zanaflex) 4 mg PO HS [facility] Last Admin: 06/02/17 22:35 Dose: 4 mg - Labs Labs: 05/30/17 06:15 05/30/17 06:15 PT 14.6 SECONDS (9.4-12.5) H 05/26/17 20:20 INR 1.33 (0.93-1.08) H 05/26/17 20:20 - Constitutional Appears: No Acute Distress - Head Exam Head Exam: ATRAUMATIC, NORMAL INSPECTION, NORMOCEPHALIC - Eye Exam Eye Exam: EOMI, Normal appearance, PERRL Pupil Exam: NORMAL ACCOMODATION, PERRL - ENT Exam ENT Exam: Mucous Membranes Moist, Normal Exam - Neck Exam Neck Exam: Full ROM, Normal Inspection. absent: Lymphadenopathy - Respiratory Exam Respiratory Exam: Clear to Ausculation Bilateral, NORMAL BREATHING PATTERN - Cardiovascular Exam Cardiovascular Exam: REGULAR RHYTHM, +S1, +S2. absent: Murmur - GI/Abdominal Exam GI & Abdominal Exam: Soft, Normal Bowel Sounds. absent: Tenderness - Exam Additional comments: groin swelling. TTP. - Extremities Exam Extremities Exam: Full ROM, Normal Capillary Refill. absent: Joint Swelling, Pedal Edema Additional comments: Dressing in place: C/D/I. - Back Exam Back Exam: NORMAL INSPECTION - Neurological Exam Neurological Exam: Alert, Awake, CN II-XII Intact, Normal Gait, Oriented x3 - Psychiatric Exam Psychiatric exam: Normal Affect, Normal Mood - Skin Skin Exam: Warm Assessment and Plan - Assessment and Plan (Free Text) Assessment: 61 yo F is s/p LLE wound debridement POD#4 and b/l inguinal lymph node biopsy POD#2 Plan: -APply ice pack for groin swelling - Clear for D/C from surgical standpoint - Cont Abx per ID/primary - F/u outpatient with Dr. Navarro in 1-2 weeks - Will DW Dr. Navarro
[2017-06-03] MEDS ORDERED: Magnesium Citrate Oral SOL (300 ml) PO ONE (10:35)
[2017-06-03] MEDS: DOXEPIN HCL TOP SCH (11:15)
[2017-06-03] MEDS: Collagenase 250 Units/gm Ointment(30 gm) TOP SCH (11:15)
[2017-06-03] MEDS: POLYETHYLENE GLYCOL 3350 17 GM/Dose PACKET PO SCH ×2 (13:22→18:03)
--- NOTE | 2017-06-03 18:12 | CP.PCM.PN ---
Subjective - Date & Time of Evaluation Date of Evaluation: 06/03/17 Time of Evaluation: 12:35 - Subjective Subjective: Comfortable, no fevers. Objective - Vital Signs/Intake and Output Vital Signs (last 24 hours): Temp Pulse Resp BP Pulse Ox 98.5 F 87 18 103/68 97 06/03/17 07:30 06/03/17 07:30 06/03/17 07:30 06/03/17 07:30 06/03/17 07:30 Intake and Output: 06/03/17 06/03/17 06:59 18:59 Intake Total 360 Output Total 300 Balance 60 - Medications Medications: Current Medications Acetaminophen (Tylenol 325mg Tab) 650 mg PO Q6H PRN PRN Reason: Fever >100.4 F Last Admin: 05/29/17 22:01 Dose: 650 mg Ascorbic Acid (Vitamin C 500 Mg Tab) 250 mg PO DAILY [facility] Last Admin: 06/02/17 10:57 Dose: Not Given Collagenase (Santyl) 0 gm TOP DAILY [facility] Last Admin: 06/02/17 11:41 Dose: 1 applic Home Med (Home Med) 1 unit INJ MWF [facility] Last Admin: 06/02/17 17:37 Dose: 1 unit Home Med (Home Med) 0 unit TOP DAILY [facility] Meropenem (Merrem Iv 1 Gm Premix) 50 mls @ 100 mls/hr IVPB Q8 [facility] PRN Reason: Protocol Stop: 06/06/17 23:59 Last Admin: 06/03/17 05:44 Dose: 100 mls/hr Lactulose (Enulose) 20 gm PO HS [facility] Last Admin: 06/02/17 22:35 Dose: 20 gm Ondansetron HCl (Zofran Inj) 4 mg IVP Q4H PRN PRN Reason: Nausea/Vomiting Oxycodone/Acetaminophen (Percocet 5/325 Mg Tab) 2 tab PO Q4H PRN PRN Reason: Pain, moderate (4-7) Stop: 06/04/17 11:56 Last Admin: 06/03/17 06:01 Dose: 2 tab Pantoprazole Sodium (Protonix Ec Tab) 40 mg PO 0600 [facility] Last Admin: 06/03/17 05:44 Dose: 40 mg Polyethylene Glycol (Miralax) 17 gm PO BID [facility] Last Admin: 06/02/17 17:39 Dose: Not Given Pregabalin (Lyrica) 225 mg PO BID [facility] Last Admin: 06/02/17 17:37 Dose: 225 mg Tizanidine HCl (Zanaflex) 4 mg PO [facility] Last Admin: 06/02/17 22:35 Dose: 4 mg - Labs Labs: 05/30/17 06:15 05/30/17 06:15 PT 14.6 SECONDS (9.4-12.5) H 05/26/17 20:20 INR 1.33 (0.93-1.08) H 05/26/17 20:20 - Constitutional Appears: Non-toxic - Head Exam Head Exam: NORMAL INSPECTION - ENT Exam ENT Exam: Mucous Membranes Moist - Neck Exam Neck Exam: absent: Meningismus - Respiratory Exam Respiratory Exam: Decreased Breath Sounds - Cardiovascular Exam Cardiovascular Exam: +S1, +S2 - GI/Abdominal Exam GI & Abdominal Exam: Soft. absent: Tenderness - Extremities Exam Additional comments: left lower extremity with dressings in place Assessment and Plan - Assessment and Plan (Free Text) Plan: Assessment chronic left leg ulcers, infected with Pseudomonas and Proteus mirabilis, R/O fungal, myocabacterial, nocardial infection urinary bladder / urethral cancer ovarian cancer multiple sclerosis S/P pacemaker placement S/P right sided port-a-cath placement Plan Continue Merrem - follow up OR pathology and cultures (fungal cx still pending) lymph node biopsy is possibly showing possible cancer - follow up official pathology report will continue to monitor clinically
[2017-06-03] MEDS: HYDROmorphone 1 mg/ml ISec IVP PRN (20:25)
--- NOTE | 2017-06-03 21:16 | CP.PCM.PCO ---
Physician Communication Note - Physician Communication Note Physician Communication Note: + [facility] Lymph Nodes/P Fredis FLORES to bx Pelvic tumor
--- NOTE | 2017-06-03 23:56 | PN ---
DATE: SUBJECTIVE: The patient is a 61-year-old, seen and examined, lying in bed. Seems to be comfortable. Eating and tolerating. No fever, no chills. No nausea or vomiting. PHYSICAL EXAMINATION: VITAL SIGNS: She is afebrile, pulse 87, respirations 18, and blood pressure 103/60. LUNGS: Bilateral fair airflow. No rhonchi or crackle. HEART: S1 and S2 audible. ABDOMEN: Soft. She has ileal conduit that is draining clear urine. She has inguinal lymphadenopathy that is adherent and painful. The left kyle has necrotic ulcer, but . LABORATORY EXAMINATION: Her inguinal biopsy shows adenocarcinoma. ASSESSMENT: 1. Pelvic mass, probably ovarian cancer with mets to the regional lymph node. 2. Left kyle necrotic ulcer, status post debridement. 3. Left inguinal biopsy showing adenocarcinoma. 4. Multiple sclerosis. 5. Chronic anemia. 6. Constipation. PLAN: We will continue the patient on current antibiotics. We will request Dr. Kwame Mcneal for biopsy of pelvic mass. As this patient is disabled and so is her , it is hard for her to come back and forth. Once the biopsy done, we will make discharge plan. Kimberley Hernadez MD
[2017-06-04] MEDS: Meropenem IV 1 gm in NS 50 ML IVPB SCH ×3 (05:13→22:20)
[2017-06-04] MEDS: HYDROmorphone 1 mg/ml ISec IVP PRN ×4 (05:15→23:04)
[2017-06-04] MEDS: Pantoprazole 40 mg EC Tab PO SCH (05:15)
--- NOTE | 2017-06-04 08:03 | CP.PCM.PN ---
Subjective - Date & Time of Evaluation Date of Evaluation: 06/04/17 Time of Evaluation: 07:00 - Subjective Subjective: General Surgery Patient doing well, minimal pain at incision sites, no other complaints at this time. Objective - Vital Signs/Intake and Output Vital Signs (last 24 hours): Temp Pulse Resp BP Pulse Ox 98.1 F 121 H 18 108/72 99 06/04/17 07:29 06/04/17 07:29 06/04/17 07:29 06/04/17 07:29 06/04/17 07:29 - Medications Medications: Current Medications Acetaminophen (Tylenol 325mg Tab) 650 mg PO Q6H PRN PRN Reason: Fever >100.4 F Last Admin: 05/29/17 22:01 Dose: 650 mg Ascorbic Acid (Vitamin C 500 Mg Tab) 250 mg PO DAILY [facility] Last Admin: 06/03/17 11:15 Dose: 250 mg Collagenase (Santyl) 0 gm TOP DAILY [facility] Last Admin: 06/03/17 11:15 Dose: 1 applic Home Med (Home Med) 1 unit INJ MWF [facility] Last Admin: 06/02/17 17:37 Dose: 1 unit Home Med (Home Med) 0 unit TOP DAILY [facility] Last Admin: 06/03/17 11:15 Dose: 1 unit Hydromorphone HCl (Dilaudid) 1 mg IVP Q4H PRN PRN Reason: Pain, moderate (4-7) Last Admin: 06/04/17 05:15 Dose: 1 mg Meropenem (Merrem Iv 1 Gm Premix) 50 mls @ 100 mls/hr IVPB Q8 [facility] PRN Reason: Protocol Stop: 06/06/17 23:59 Last Admin: 06/04/17 05:13 Dose: 100 mls/hr Lactulose (Enulose) 20 gm PO HS [facility] Last Admin: 06/03/17 22:17 Dose: 20 gm Ondansetron HCl (Zofran Inj) 4 mg IVP Q4H PRN PRN Reason: Nausea/Vomiting Pantoprazole Sodium (Protonix Ec Tab) 40 mg PO 0600 [facility] Last Admin: 06/04/17 05:15 Dose: 40 mg Polyethylene Glycol (Miralax) 17 gm PO BID [facility] Last Admin: 06/03/17 18:03 Dose: 17 gm Pregabalin (Lyrica) 225 mg PO BID [facility] Last Admin: 06/03/17 18:03 Dose: 225 mg Tizanidine HCl (Zanaflex) 4 mg PO HS [facility] Last Admin: 06/03/17 22:17 Dose: 4 mg - Labs Labs: 05/30/17 06:15 05/30/17 06:15 PT 14.6 SECONDS (9.4-12.5) H 05/26/17 20:20 INR 1.33 (0.93-1.08) H 05/26/17 20:20 - Constitutional Appears: Non-toxic, No Acute Distress - Head Exam Head Exam: ATRAUMATIC, NORMOCEPHALIC - Eye Exam Eye Exam: EOMI. absent: Scleral icterus - Respiratory Exam Respiratory Exam: NORMAL BREATHING PATTERN. absent: Respiratory Distress - GI/Abdominal Exam GI & Abdominal Exam: Soft. absent: Distended, Tenderness - Exam Additional comments: groin incisions C/D/I bilaterally - Extremities Exam Additional comments: dressing C/D/I - Neurological Exam Neurological Exam: Alert, Awake, Oriented x3 - Skin Skin Exam: Dry, Warm Assessment and Plan - Assessment and Plan (Free Text) Assessment: 61F is s/p LLE wound debridement POD#5 and b/l inguinal lymph node biopsy POD#4 Plan: - Awaiting pelvic mass biopsy planned for 06/05/17 - Clear for D/C from surgical standpoint - Cont Abx per ID/primary - F/u outpatient with Dr. Navarro in 1-2 weeks - Will DW Dr. Ramon Rodriguez PGY4
[2017-06-04] MEDS: POLYETHYLENE GLYCOL 3350 17 GM/Dose PACKET PO SCH ×3 (09:50→17:12)
[2017-06-04] MEDS: Collagenase 250 Units/gm Ointment(30 gm) TOP SCH (11:34)
[2017-06-04] MEDS: DOXEPIN HCL TOP SCH (11:34)
--- NOTE | 2017-06-04 14:24 | PN ---
DATE: SUBJECTIVE: The patient is a 61-year-old seen and examined, lying in bed, complaining of bilateral inguinal pain and inflammation of the inguinal area. She has some vaginal discharge. No fever or chills. No nausea or vomiting. PHYSICAL EXAMINATION: VITAL SIGNS: She is afebrile, pulse 110, respirations 18, and blood pressure 108/72. LUNGS: Bilateral good airflow. No rhonchi or crackle. HEART: S1 and S2 audible. ABDOMEN: Soft. She has ileal conduit. She has bilateral inguinal lymph node excision done with some induration. EXTREMITIES: Left kyle is in the dressing. LABORATORY DATA: There is no new lab available today, I will order for tomorrow. ASSESSMENT: 1. 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 The patient had surgery done last year in 11/2015 and she is status post cystectomy, status post ileal conduit formation. 2. Multiple sclerosis. 3. Bilateral inguinal lymphadenopathy and metastasis from the pelvic mass. PLAN: So the plan, the patient is scheduled to have CT-guided biopsy of pelvic mass. After that we can put her in TCU until Dr. Lake makes a plan for her chemo targeted radiation. I will continue her on meropenem. She is still complaining of constipation. I will continue her on MiraLax and she is scheduled for CT-guided biopsy in a.m. Kimberley Hernadez MD
--- NOTE | 2017-06-04 18:06 | CP.PCM.PN ---
Subjective - Date & Time of Evaluation Date of Evaluation: 06/04/17 Time of Evaluation: 12:05 - Subjective Subjective: Comfortable, a little less pain in the left leg, no fevers overnight. Objective - Vital Signs/Intake and Output Vital Signs (last 24 hours): Temp Pulse Resp BP Pulse Ox 98.1 F 121 H 18 108/72 99 06/04/17 07:29 06/04/17 07:29 06/04/17 07:29 06/04/17 07:29 06/04/17 07:29 - Medications Medications: Current Medications Acetaminophen (Tylenol 325mg Tab) 650 mg PO Q6H PRN PRN Reason: Fever >100.4 F Last Admin: 05/29/17 22:01 Dose: 650 mg Ascorbic Acid (Vitamin C 500 Mg Tab) 250 mg PO DAILY [facility] Last Admin: 06/04/17 09:49 Dose: 250 mg Collagenase (Santyl) 0 gm TOP DAILY [facility] Last Admin: 06/03/17 11:15 Dose: 1 applic Home Med (Home Med) 1 unit INJ MWF [facility] Last Admin: 06/02/17 17:37 Dose: 1 unit Home Med (Home Med) 0 unit TOP DAILY [facility] Last Admin: 06/03/17 11:15 Dose: 1 unit Hydromorphone HCl (Dilaudid) 1 mg IVP Q4H PRN PRN Reason: Pain, moderate (4-7) Last Admin: 06/04/17 09:50 Dose: 1 mg Meropenem (Merrem Iv 1 Gm Premix) 50 mls @ 100 mls/hr IVPB Q8 [facility] PRN Reason: Protocol Stop: 06/06/17 23:59 Last Admin: 06/04/17 05:13 Dose: 100 mls/hr Lactulose (Enulose) 20 gm PO HS [facility] Last Admin: 06/03/17 22:17 Dose: 20 gm Ondansetron HCl (Zofran Inj) 4 mg IVP Q4H PRN PRN Reason: Nausea/Vomiting Pantoprazole Sodium (Protonix Ec Tab) 40 mg PO 0600 [facility] Last Admin: 06/04/17 05:15 Dose: 40 mg Polyethylene Glycol (Miralax) 17 gm PO BID [facility] Last Admin: 06/04/17 09:50 Dose: 17 gm Pregabalin (Lyrica) 225 mg PO BID [facility] Last Admin: 06/04/17 09:50 Dose: 225 mg Tizanidine HCl (Zanaflex) 4 mg PO HS [facility] Last Admin: 06/03/17 22:17 Dose: 4 mg - Labs Labs: 05/30/17 06:15 05/30/17 06:15 PT 14.6 SECONDS (9.4-12.5) H 05/26/17 20:20 INR 1.33 (0.93-1.08) H 05/26/17 20:20 - Constitutional Appears: Non-toxic - Head Exam Head Exam: NORMAL INSPECTION - ENT Exam ENT Exam: Mucous Membranes Moist - Neck Exam Neck Exam: absent: Meningismus - Respiratory Exam Respiratory Exam: Decreased Breath Sounds - Cardiovascular Exam Cardiovascular Exam: +S1, +S2 - GI/Abdominal Exam GI & Abdominal Exam: Soft. absent: Tenderness Assessment and Plan - Assessment and Plan (Free Text) Plan: Assessment chronic left leg ulcers, infected with Pseudomonas and Proteus mirabilis, R/O fungal, myocabacterial, nocardial infection urinary bladder / urethral cancer ovarian cancer multiple sclerosis S/P pacemaker placement S/P right sided port-a-cath placement Plan Continue Merrem - follow up OR pathology and cultures (fungal cx still pending) lymph node biopsy is possibly showing possible cancer - follow up official pathology report will continue to monitor clinically
[2017-06-05] MEDS: Meropenem IV 1 gm in NS 50 ML IVPB SCH ×3 (06:14→21:10)
[2017-06-05] MEDS: Pantoprazole 40 mg EC Tab PO SCH (06:15)
[2017-06-05] MEDS: HYDROmorphone 1 mg/ml ISec IVP PRN ×3 (07:48→18:02)
--- NOTE | 2017-06-05 08:21 | CP.PCM.PN ---
Subjective - Date & Time of Evaluation Date of Evaluation: 06/05/17 Time of Evaluation: 08:06 - Subjective Subjective: Surgery Progress Note for Dr. Navarro Pt seen and examined at bedside. No acute overnight events. Pt is NPO for biopsy today. Pt denied CP, SOB, nausea, vomiting, diarrhea, constipation, abdominal pain, fever, chills, [place], or dizziness. Objective - Vital Signs/Intake and Output Vital Signs (last 24 hours): Temp Pulse Resp BP Pulse Ox 99 F 99 H 16 88/42 L 94 L 06/04/17 16:00 06/04/17 16:00 06/04/17 16:00 06/04/17 16:00 06/04/17 16:00 - Medications Medications: Current Medications Acetaminophen (Tylenol 325mg Tab) 650 mg PO Q6H PRN PRN Reason: Fever >100.4 F Last Admin: 05/29/17 22:01 Dose: 650 mg Ascorbic Acid (Vitamin C 500 Mg Tab) 250 mg PO DAILY [facility] Last Admin: 06/04/17 09:49 Dose: 250 mg Collagenase (Santyl) 0 gm TOP DAILY [facility] Last Admin: 06/04/17 11:34 Dose: 1 applic Home Med (Home Med) 1 unit INJ MWF [facility] Last Admin: 06/02/17 17:37 Dose: 1 unit Home Med (Home Med) 0 unit TOP DAILY [facility] Last Admin: 06/04/17 11:34 Dose: 1 unit Hydromorphone HCl (Dilaudid) 1 mg IVP Q4H PRN PRN Reason: Pain, moderate (4-7) Last Admin: 06/05/17 07:48 Dose: 1 mg Meropenem (Merrem Iv 1 Gm Premix) 50 mls @ 100 mls/hr IVPB Q8 [facility] PRN Reason: Protocol Stop: 06/06/17 23:59 Last Admin: 06/05/17 06:14 Dose: 100 mls/hr Lactulose (Enulose) 20 gm PO HS [facility] Last Admin: 06/04/17 22:20 Dose: 20 gm Ondansetron HCl (Zofran Inj) 4 mg IVP Q4H PRN PRN Reason: Nausea/Vomiting Pantoprazole Sodium (Protonix Ec Tab) 40 mg PO 0600 [facility] Last Admin: 06/05/17 06:15 Dose: Not Given Polyethylene Glycol (Miralax) 17 gm PO BID [facility] Last Admin: 06/04/17 17:12 Dose: Not Given Polyethylene Glycol (Miralax) 17 gm PO DAILY [facility] Last Admin: 06/04/17 11:34 Dose: Not Given Pregabalin (Lyrica) 225 mg PO BID [facility] Last Admin: 06/04/17 17:12 Dose: 225 mg Tizanidine HCl (Zanaflex) 4 mg PO HS [facility] Last Admin: 06/04/17 22:20 Dose: 4 mg - Labs Labs: 05/30/17 06:15 05/30/17 06:15 PT 14.6 SECONDS (9.4-12.5) H 05/26/17 20:20 INR 1.33 (0.93-1.08) H 05/26/17 20:20 - Constitutional Appears: No Acute Distress - Head Exam Head Exam: NORMAL INSPECTION - Eye Exam Eye Exam: Normal appearance - ENT Exam ENT Exam: Normal Exam - Neck Exam Neck Exam: Normal Inspection - Respiratory Exam Respiratory Exam: NORMAL BREATHING PATTERN. absent: Accessory Muscle Use, Respiratory Distress - Cardiovascular Exam Cardiovascular Exam: RRR. absent: Gallop, Rubs, Murmur - GI/Abdominal Exam GI & Abdominal Exam: Soft. absent: Distended, Guarding, Tenderness, Rebound - Extremities Exam Additional comments: Groin/Dressings C/D/I, no surrounding erythema, drainage, or TTP - Neurological Exam Neurological Exam: Alert, Awake, Oriented x3 - Skin Skin Exam: Dry, Intact, Normal Color, Warm Assessment and Plan - Assessment and Plan (Free Text) Assessment: 61F is s/p LLE wound debridement POD#6 and b/l inguinal lymph node biopsy POD#5 Plan: - Biopsy of pelvic mass today - Clear for D/C from surgical standpoint - Cont Abx per ID/primary - F/u outpatient with Dr. Navarro in 1-2 weeks - Will DW Dr. Ramon Gilman, PGY1
--- NOTE | 2017-06-05 08:44 | PN ---
DATE: 06/02/2017 SUBJECTIVE: The patient is a 61-year-old, seen and examined, lying in bed, complained of pain in the inguinal lumps. Eating and tolerating. Complained of constipation. PHYSICAL EXAMINATION VITAL SIGNS: The patient is afebrile, pulse 94, respirations 20 and blood pressure 133/90. LUNGS: Bilateral good airflow. No rhonchi or crackle. HEART: S1 and S2 audible. ABDOMEN: Soft and nontender. No rebound. No guarding. EXTREMITIES: She has adherent, painful lump in both groins. Left leg is in the dressing. NEUROLOGIC: She is awake, alert and oriented. LABORATORY DATA: Her pathology report came out positive for adenocarcinoma of the ovary and her wound is positive for pseudomonas. ASSESSMENT: 1. Pelvic mass probably ovarian since metastases to the groin, has adenocarcinoma of the ovary. 2. Status post cystectomy. 3. Multiple sclerosis. 4. History of carcinoma of blood. 5. Constipation. PLAN: I will give her a dose magnesium citrate. I will give her one dose of Relistor. We will continue on meropenem. Analgesic as needed. We discussed with Dr. Lake. She will be discharge in a.m. and switch her medications to p.o. and Dr. Lake will follow her as an outpatient. Kimberley Hernadez MD
[2017-06-05] MEDS: Collagenase 250 Units/gm Ointment(30 gm) TOP SCH (10:44)
[2017-06-05] MEDS: POLYETHYLENE GLYCOL 3350 17 GM/Dose PACKET PO SCH ×2 (10:45)
[2017-06-05] MEDS: DOXEPIN HCL TOP SCH (10:49)
[2017-06-05] MEDS: COPAXONE 40 MG/ML INJ SCH (11:00)
[2017-06-05 12:52] LABS: POLYMERASE MUTATION See above result
[2017-06-05 12:53] LABS: BCP MUTATIONS See above result; PRECORE MUTATION See above result
--- NOTE | 2017-06-05 13:11 | OP ---
PROCEDURE DATE: 06/01/2017 LOCATION: Admitted on 05/26/2017 to room 568, bed 2. PREOPERATIVE DIAGNOSES: 1. Bilateral inguinal lymphadenopathy. 2. Left lower extremity necrotizing infected ulcers (pseudomonas). 3. Multiple sclerosis. 4. History of bladder and ovarian carcinoma. POSTOPERATIVE DIAGNOSES: 1. Bilateral inguinal lymphadenopathy. 2. Left lower extremity necrotizing infected ulcers (pseudomonas). 3. Multiple sclerosis. 4. History of bladder and ovarian carcinoma. PATHOLOGY: Pending. PROCEDURE: On 06/01/2017 is bilateral superficial inguinal lymphadenectomy. SURGEON: Kumar Navarro MD TITLE CLERK AUTOMOBILE: Chase Gómez DO, PGY3 SECOND INCOME TAX EXPERT: Alexis May DO, PGY2 TYPE OF ANESTHESIA: MAC - Marcaine 0.5% - 28 mL. ANESTHESIA ADMINISTERED BY: Tha Dove DO OPERATIVE INDICATION: The patient is a 61-year-old female who went to the hospital with multiple infected ulcerations on the lower extremities of the recurring natures. The previous ones had healed with topical treatment and the present ones, which were surgical debrided within the past week demonstrated pseudomonas and Proteus infection. The initial thought was that they could have been related to pyoderma gangrenosum, but has not been confirmed by pathology or by clinical course. The patient has described significant increasingly symptomatic lymphadenopathy, predominantly in the groin, left side more than the right, however, the patient does have additional lymphadenopathy in the supraclavicular and axillary regions. The attending physician would like these lesions removed and examined for possibility for metastatic cancer. DESCRIPTION OF PROCEDURE: The patient is brought to the operating room from the same day holding area, where she has been seen by surgical team and wounds are appropriately marked and by the anesthesiologist. She undergoes time-out procedure and is placed on the table in a supine manner. Following light intravenous analgesia and oxygenation monitoring by the anesthesiologist both groins were prepped with Betadine and aseptically draped. Attention is drawn to the right groin, where the area marked is infiltrated and then field blocked with the bupivacaine. An incision made carried on down through the subcutaneous tissues to the extremely stony hard lymph node below. This is dissected free with electrocoagulating cautery current and 2-0 Chromic catgut ligatures were needed. The specimen is submitted in saline soaked sponge for flow cytometry and further permanent section analysis by the Pathology Department. The wound is closed with 3-0 Polysorb interrupted suture and the skin with Monocryl subcuticular closure and the suture skin stapler. Attention is now drawn to the left side, which is infiltrated in the same manner and a field block applied and dissection carried on through to the against stony hard lymph node below, several are encountered and these are dissected free and ligated with 2-0 Chromic catgut ligature. One of the lymph nodes is firmly attached to a branch of the saphenous vein, which requires suture ligation with 3-0 Polysorb suture. This specimen is submitted to the pathology in formalin and the operating team did not send it for culture as instructed claiming that they did not hear instructions. The wound is now lavaged, aspirated, and closed with 3-0 Polysorb interrupted suture and the skin with subcuticular, Monocryl, and the skin stapler. Dry dressings were applied. The patient is awakened, extubated, and transported to the recovery room in a satisfactory condition. Sponge, instrument, and suture counts were verified as correct at the end of the procedure. The surgical assistants were present throughout from beginning to end and then provided exposure and help and assistance in dissection. This dictation will be electronically signed without being read. Kumar Navarro MD
--- NOTE | 2017-06-05 16:12 | CP.PCM.PN ---
Subjective - Date & Time of Evaluation Date of Evaluation: 06/05/17 Time of Evaluation: 11:30 - Subjective Subjective: Comfortable, no fevers, not in distress, less pain in the left leg. Objective - Vital Signs/Intake and Output Vital Signs (last 24 hours): Temp Pulse Resp BP Pulse Ox 98.6 F 88 18 91/58 L 97 06/05/17 08:00 06/05/17 08:00 06/05/17 08:00 06/05/17 08:00 06/05/17 08:00 - Medications Medications: Current Medications Acetaminophen (Tylenol 325mg Tab) 650 mg PO Q6H PRN PRN Reason: Fever >100.4 F Last Admin: 05/29/17 22:01 Dose: 650 mg Ascorbic Acid (Vitamin C 500 Mg Tab) 250 mg PO DAILY [facility] Last Admin: 06/04/17 09:49 Dose: 250 mg Collagenase (Santyl) 0 gm TOP DAILY [facility] Last Admin: 06/04/17 11:34 Dose: 1 applic Home Med (Home Med) 1 unit INJ MWF [facility] Last Admin: 06/02/17 17:37 Dose: 1 unit Home Med (Home Med) 0 unit TOP DAILY [facility] Last Admin: 06/04/17 11:34 Dose: 1 unit Hydromorphone HCl (Dilaudid) 1 mg IVP Q4H PRN PRN Reason: Pain, moderate (4-7) Last Admin: 06/05/17 07:48 Dose: 1 mg Meropenem (Merrem Iv 1 Gm Premix) 50 mls @ 100 mls/hr IVPB Q8 [facility] PRN Reason: Protocol Stop: 06/06/17 23:59 Last Admin: 06/05/17 06:14 Dose: 100 mls/hr Lactulose (Enulose) 20 gm PO HS [facility] Last Admin: 06/04/17 22:20 Dose: 20 gm Ondansetron HCl (Zofran Inj) 4 mg IVP Q4H PRN PRN Reason: Nausea/Vomiting Pantoprazole Sodium (Protonix Ec Tab) 40 mg PO 0600 [facility] Last Admin: 06/05/17 06:15 Dose: Not Given Polyethylene Glycol (Miralax) 17 gm PO BID [facility] Last Admin: 06/04/17 17:12 Dose: Not Given Polyethylene Glycol (Miralax) 17 gm PO DAILY [facility] Last Admin: 06/04/17 11:34 Dose: Not Given Pregabalin (Lyrica) 225 mg PO BID [facility] Last Admin: 06/04/17 17:12 Dose: 225 mg Tizanidine HCl (Zanaflex) 4 mg PO HS [facility] Last Admin: 06/04/17 22:20 Dose: 4 mg - Labs Labs: 05/30/17 06:15 05/30/17 06:15 PT 14.6 SECONDS (9.4-12.5) H 05/26/17 20:20 INR 1.33 (0.93-1.08) H 05/26/17 20:20 - Constitutional Appears: Non-toxic, Chronically Ill - Head Exam Head Exam: NORMAL INSPECTION - ENT Exam ENT Exam: Mucous Membranes Moist - Respiratory Exam Respiratory Exam: Decreased Breath Sounds - Cardiovascular Exam Cardiovascular Exam: +S1, +S2 - GI/Abdominal Exam GI & Abdominal Exam: Soft. absent: Tenderness - Extremities Exam Additional comments: left leg with dressings in place Assessment and Plan - Assessment and Plan (Free Text) Plan: Assessment chronic left leg ulcers, infected with Pseudomonas and Proteus mirabilis, R/O fungal, myocabacterial, nocardial infection urinary bladder / urethral cancer ovarian cancer multiple sclerosis S/P pacemaker placement S/P right sided port-a-cath placement Plan Continue Merrem - follow up OR pathology and cultures (fungal cx still pending) lymph node biopsy is showing ovarian cancer metastases will continue to monitor clinically overall prognosis is poor
--- NOTE | 2017-06-05 20:18 | CP.PCM.PCO ---
Physician Communication Note - Physician Communication Note Physician Communication Note: Aspirate 30cc each groin with relief/Needs Pelvic Mass CT Guided Biopsy
--- NOTE | 2017-06-05 23:23 | PN ---
DATE: SUBJECTIVE: The patient is a 61-year-old, seen and examined. She states Dr. Navarro drained some fluid in her pubic area and since then she feels some relief. Scanty vaginal discharge, still has suprapubic discomfort. No nausea or vomiting. No diarrhea. PHYSICAL EXAMINATION VITAL SIGNS: She is afebrile, pulse is 88, respirations are 18, and blood pressure is 91/58. LUNGS: Bilateral good airflow. No rhonchi or crackles. HEART: S1 and S2, audible. ABDOMEN: Soft. She has ileal conduit functioning, clear urine. Her groin area has slightly discomfort. Swelling has improved. Left kyle wound is in dressing. LABORATORY DATA: CA-125 . ASSESSMENT AND PLAN: 1. Metastatic ovarian carcinoma. 2. Pelvic mass probably ovarian malignancy recurrence. 3. Bilateral inguinal lymphadenopathy, status post excisional biopsy. 4. Left lower extremity necrotic lesion with pseudomonas aeruginosa infection. 5. History of multiple sclerosis. 6. History of carcinoma bladder, status post cystectomy. PLAN: The patient is scheduled for biopsy of mass. Once the biopsy is done, we will make a discharge plan. Kimberley Hernadez MD
[2017-06-06] MEDS: HYDROmorphone 1 mg/ml ISec IVP PRN ×2 (03:48→09:27)
[2017-06-06] MEDS: Pantoprazole 40 mg EC Tab PO SCH (06:05)
[2017-06-06] MEDS: Meropenem IV 1 gm in NS 50 ML IVPB SCH ×2 (06:05→15:06)
[2017-06-06 08:31] VITALS: BP 104/61; PULSE 89; RESP 18; TEMP 98.1; O2SAT 98
[2017-06-06] MEDS: POLYETHYLENE GLYCOL 3350 17 GM/Dose PACKET PO SCH (09:27)
[2017-06-06] MEDS: DOXEPIN HCL TOP SCH (11:00)
[2017-06-06] MEDS: Collagenase 250 Units/gm Ointment(30 gm) TOP SCH (15:06)
[2017-06-06] MEDS ORDERED: Influenza Vaccine 60 mcg/0.5 mL SYR (4YR UP) IM ONE (16:07)
--- NOTE | 2017-06-06 18:27 | PN ---
DATE: 06/06/2017 SUBJECTIVE: The patient is in bed in no acute distress. PHYSICAL EXAMINATION: On exam this morning and the patient was seen early in room 566, bed 3, temperature of 98, blood pressure is 104/61, respiratory rate of 18, heart rate of 89. HEENT: Examination of HEENT is unremarkable. NECK: Supple. LUNGS: Have decreased breath sounds. HEART: Normal S1, S2. ABDOMEN: Soft, nontender. LABORATORY EXAMINATION: Reveals a white count of 8.1, hemoglobin of 10. BUN is 16, creatinine of 0.8. Vancomycin trough is 14. RPR is negative. FTA is negative. Hepatitis profile is negative. Hepatitis DNA is negative and HIV is negative. Hepatitis C is not detected, and Microbiology reveals proteus and pseudomonas in three different cultures and the pathology of the lymph nodes reveals metastatic serous carcinoma, and the pathology of leg ulcers, necrotic, acutely inflamed. Review of orders reveals the patient to be on meropenem. ASSESSMENT/PLAN: A 61-year-old female with chronic left leg ulcers infected with pseudomonas and proteus and with urinary bladder and urethral cancer and ovarian cancer, multiple sclerosis, on meropenem. We will check on the fungal cultures. The lymph node biopsy is showing metastatic ovarian cancer, and Dr. Navarro' communication report from yesterday is reviewed. Dr. Hernadez's progress note from yesterday is also reviewed. Overall prognosis is quite poor for this patient. Tyler Anglin MD
--- NOTE | 2017-06-07 01:51 | DS ---
HISTORY OF PRESENT ILLNESS: The patient is a 61-year-old who was initially treated by me in the office because of her multiple left leg lesions. She was given oral antibiotics and local antibiotic cream with most of the lesions recovered, but one lesion became more necrotic, so she was referred to emergency room for IV antibiotic and wound care. PAST MEDICAL HISTORY: She has significant past medical history of bladder cancer, status post hysterectomy and ileal conduit formation, history of ovarian Ca, status post oophorectomy, hypertension, history of multiple sclerosis. ALLERGIES: THE PATIENT IS NOT ALLERGIC TO ANY MEDICATION. HOSPITAL COURSE: The patient was given IV antibiotics with local wound care and debridement. She was growing Pseudomonas aeruginosa and Proteus mirabilis, has been on meropenem. The patient also was complaining of bilateral inguinal painful lymphadenopathy, had excision and biopsy done shows adenocarcinoma, metastatic ovarian, so she developed suprapubic fullness. She had drainage done by Dr. Navarro, seems to be doing stable. PHYSICAL EXAMINATION: GENERAL: On examination today; she is awake, alert, oriented, communicative, ambulatory. VITAL SIGNS: She is afebrile, pulse 89, respirations 18, blood pressure 104/61. LUNGS: Bilateral good airflow. No rhonchi or crackles. HEART: S1 and S2 audible. ABDOMEN: Soft, nontender. No rebound. No guarding. On abdominal exam, she has ileal conduit and she has bilateral inguinal polina. NEUROLOGIC: The patient is awake, alert, oriented and communicative. ASSESSMENT: 1. Metastatic ovarian cancer. 2. Left kyle necrotic ulcer, status post debridement. PLAN: The patient is being discharged home today. She will be followed by Dr. Lake as outpatient and she will get chemotherapy and she will also follow with Dr. Navarro. Kimberley Hernadez MD
--- NOTE | 2017-06-08 12:21 | OP ---
PROCEDURE DATE: 05/30/2017 LOCATION: Room number 568, bed 2. PREOPERATIVE DIAGNOSIS: Three left lower leg ulcers - stage III (5 cm, 3 cm and 2 cm). POSTOPERATIVE DIAGNOSIS: Three left lower leg ulcers - stage III (5 cm, 3 cm and 2 cm) extending to muscle. PROCEDURE: On 05/30/2017, a sharp and wide excisional debridement of 3 skin ulcers. SURGEON: Kumar Navarro M.D. DRAUGHTSMAN: Jayson Bose D.O. PGY1. SECOND CADWORX PIPING DESIGNER: Luke Olvera D.O. PGY1. ANESTHESIA ADMINISTERED BY: Itz Espinosa MD OPERATIVE INDICATION: The patient is a 61-year-old -[place] female with recurring left lower extremity ulcerations. She has had several over the past year that has responded to topical treatment and are somewhat large extending as large as 4 to 5 cm each. These apparently arise [place] or self limiting over a period of several months. The skin heals per primum and at this point the patient had been admitted to the hospital with the infection of the leg and muscle and the question of Pyoderma gangrenosum has been raised and will be determined by this excisional debridement. The patient has also had multiple sclerosis and is on the treatment for same and it is questionable whether this is contributing to the immune phenomenon going on. Other significant past history includes a bladder cancer with an ileal conduit and excision of the bladder and ovarian cancer having been treated as recently as 2016. Risks, benefits, alternatives and their anticipated outcomes were discussed with the patient and she signed the informed consent. DESCRIPTION OF THE PROCEDURE: The patient is brought to the operating, identified by her wristband and is placed on the table in a supine manner. The lower extremity is exposed and prepped with Hibiclens, Chlorhexidine preparation and the patient has been aseptically draped. Field block infiltration is performed on each of the 3 lesions sequentially utilizing the Bupivacaine 0.5%. Once this is performed, sharp debridement is obtained of the necrotic tissues and submitted to pathology in formalin and cultures with acid fast, fungus, and aerobic and anaerobic bacterial culture. Using the Versajet debriding tool, the tissues are debrided down through the skin subcutaneous tissue and down to muscle removing some of the fascia that appears to be involved with the infection. Once hemostatics is contained, electrocoagulation cautery is utilized for hemostasis and Xeroform gauge was placed over each wound, dry dressing on the same and a Kerlix wrap is employed. The patient is then awakened, transported to the recovery room in a satisfactory condition. Sponge, instrument, suture count were verified as correct at the end of the procedure. Estimated blood loss during this procedure was less than 30 mL of blood. This dictation will be electronically signed without being read. The surgical assistants were both present from the beginning to end and were extremely helpful in the dissection and preparation and cleansing of the wounds. Kumar Navarro MD
== END 2017-06-06 16:24 | disposition home or self-care (01) | DRG 571 ==
LOC: ED 18:48 → ERH 22:13 → 5RNO 05-27 00:11
PROVIDERS: ADMIT Internal Medicine; ATTEND Internal Medicine
PROC: 0JBP0ZZ Excision of Left Lower Leg Subcutaneous Tissue and Fascia, Open Approach (ICD-10-PCS; principal; 2017-05-30 11:30)
PROC: 07BH0ZX Excision of Right Inguinal Lymphatic, Open Approach, Diagnostic (ICD-10-PCS; 2017-06-01)
PROC: 07BJ0ZX Excision of Left Inguinal Lymphatic, Open Approach, Diagnostic (ICD-10-PCS; 2017-06-01)
DX: L97.829 Non-pressure chronic ulcer of other part of left lower leg with unspecified severity (principal); C77.4 Secondary and unspecified malignant neoplasm of inguinal and lower limb lymph nodes; I42.9 Cardiomyopathy, unspecified; G35 Multiple sclerosis; I50.9 Heart failure, unspecified; I11.0 Hypertensive heart disease with heart failure; N13.30 Unspecified hydronephrosis; L03.116 Cellulitis of left lower limb; B96.5 Pseudomonas (aeruginosa) (mallei) (pseudomallei) as the cause of diseases classified elsewhere; B96.4 Proteus (mirabilis) (morganii) as the cause of diseases classified elsewhere; I25.10 Atherosclerotic heart disease of native coronary artery without angina pectoris; D64.9 Anemia, unspecified; G89.29 Other chronic pain; M54.9 Dorsalgia, unspecified; K59.09 Other constipation; K27.9 Peptic ulcer, site unspecified, unspecified as acute or chronic, without hemorrhage or perforation; N89.8 Other specified noninflammatory disorders of vagina; Z85.51 Personal history of malignant neoplasm of bladder; Z85.43 Personal history of malignant neoplasm of ovary; Z92.21 Personal history of antineoplastic chemotherapy; Z90.6 Acquired absence of other parts of urinary tract; Z90.710 Acquired absence of both cervix and uterus; Z95.5 Presence of coronary angioplasty implant and graft; Z87.891 Personal history of nicotine dependence; Z93.6 Other artificial openings of urinary tract status; Z95.810 Presence of automatic (implantable) cardiac defibrillator

== ENCOUNTER 2017-06-27 11:14 | Inpatient (IN) | payer BC ==
[2017-06-27] MEDS ORDERED: HYDROmorphone 1 mg/ml ISec IVP STA (11:47)
[2017-06-27] MEDS ORDERED: Piperacillin/Tazobact 3.375 gm 100 ML IVPB STA (11:48)
[2017-06-27] MEDS ORDERED: Vancomycin 1gm in NS 250ml 1 GM/250 ML BAG IVPB STA (11:48)
--- NOTE | 2017-06-27 11:51 | ED PDOC ---
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 Navarro. Patient reports she went to her oncologist who advised her to come to the emergency department for evaluation stating the puncture of surgery was infected. Patient is currently complaining of abdominal pain, swelling, and yellow discharge. Additionally, patient notes vomiting x4 today and diaphoresis since this morning. Patient denies chest pain, shortness of breath, headache, fever, cough, diarrhea, changes in bowel habits, dysuria, hematuria, frequency, flank pain, or other complaints. PMD: Dr Hernadez; Dr. Kwan 06/27/17 20:10 Time/Duration: 24 hours Symptom Onset: Gradual Symptom Course: Worsening Severity Level: 10, Severe Activities at Onset: Light Context: Home Past Medical History - Provider Review Nursing Documentation Reviewed: Yes - Travel History Have you recently traveled outside [place] w/in the past 3 mons?: No - Infectious Disease Hx of Infectious Diseases: None - Tetanus Immunization Tetanus Immunization: Up to Date - Reproductive Menopause: Yes - Cardiac Hx Cardiac Disorders: Yes (s/p angioplasty) - Pulmonary Hx Respiratory Disorders: No - Neurological Hx Neurological Disorder: Yes Hx Multiple Sclerosis: Yes Other/Comment: 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 - HEENT Hx HEENT Disorder: No Other/Comment: wears glasses - Renal Hx Renal Disorder: Yes Other/Comment: bladder stones/ cancer - Endocrine/Metabolic Hx Endocrine Disorders: No - Hematological/Oncological Hx Blood Transfusions: No Hx Blood Transfusion Reaction: No - Integumentary Hx Dermatological Disorder: No - Musculoskeletal/Rheumatological Hx Musculoskeletal Disorders: Yes - Gastrointestinal Hx Gastrointestinal Disorders: Yes Hx Vomiting: No - Genitourinary/Gynecological Hx Genitourinary Disorders: Yes Hx Bladder Cancer: Yes Hx Bladder Stone: Yes Hx Ovarian Cancer: Yes Other/Comment: + R side urostomy - Psychiatric Hx Emotional Abuse: No Hx Physical Abuse: No Hx Substance Use: No - Surgical History Other/Comment: Gtube reversal. R side urostomy. L side pacemaker/ defibrillator. Partial hysterectomy - Anesthesia Hx Anesthesia Reactions: No Hx Malignant Hyperthermia: No - Suicidal Assessment Feels Threatened In Home Enviroment: No Family/Social History - Physician Review Nursing Documentation Reviewed: Yes Family/Social History: Unknown Family HX Smoking Status: Never Smoked Hx Alcohol Use: No Hx Substance Use: No Hx Substance Use Treatment: No Allergies/Home Meds Allergies/Adverse Reactions: Allergies No Known Allergies Allergy (Verified 06/27/17 16:30) Home Medications: Home Meds Medication Instructions Recorded Confirmed Tapentadol HCl [Nucynta ER] 150 mg PO Q12H 08/16/13 06/27/17 Tapentadol HCl [Nucynta] 100 mg PO TID 10/16/15 06/27/17 tiZANidine [Zanaflex] 4 mg PO HS 10/16/15 06/27/17 Ascorbic Acid [Vitamin C] 1 tab PO DAILY 10/19/15 06/27/17 Cholecalciferol (Vitamin D3) 50,000 unit PO MON 10/19/15 06/27/17 [Vitamin D] Pregabalin [Lyrica] 225 mg PO BID 10/19/15 06/27/17 Glatiramer Acetate [Copaxone] 40 mg SQ MWF 10/20/15 06/27/17 Review of Systems - Review of Systems Constitutional: absent: Fevers Eyes: absent: Vision Changes Respiratory: absent: SOB, Cough Cardiovascular: absent: Chest Pain Gastrointestinal: Abdominal Pain (lower abdominal pain ), Nausea, Vomiting, Other (swelling and yellow discharge from punt). absent: Stool Changes, Diarrhea, Appetite Changes, Hematochezia, Hematemesis Genitourinary Female: absent: Dysuria, Frequency, Hematuria Musculoskeletal: Back Pain (lower back pain ) Skin: Abscess Neurological: absent: Headache Physical Exam Vital Signs Reviewed: Yes (elevated HR) Vital Signs Temp Pulse Resp BP Pulse Ox 06/27/17 15:16 98.8 F 92 H 18 121/76 99 06/27/17 13:00 108 H 18 121/77 98 06/27/17 11:44 98 F 118 H 20 132/88 100 Temperature: Afebrile Blood Pressure: Normal Pulse: Tachycardic Appearance: Positive for: Well-Appearing, Non-Toxic, Other (uncomfortable, mild distress due to pain upon exam; alert/awake, GCS = 15, oriented x 3, cooperative ) Pain Distress: Mild Mental Status: Positive for: Alert and Oriented X 3 - Systems Exam Head: Present: Atraumatic, Normocephalic Pupils: Present: PERRL, Other (no nystagmus, no photophobia, sclera anicteric) Extroacular Muscles: Present: EOMI Conjunctiva: Present: Normal Ears: Present: Normal Mouth: Present: Normal Teeth, Other (mild dry oral mucosa, no drooling/stridor, no dysphonia; uvula/tongue are midline) Pharnyx: Present: Normal Nose (External): Present: Atraumatic Neck: Present: Normal Range of Motion, Trachea Midline. No: MIDLINE TENDERNESS , JVD Respiratory/Chest: Present: Clear to Auscultation, Good Air Exchange. No: Respiratory Distress, Accessory Muscle Use Cardiovascular: Present: Regular Rate and Rhythm, Normal S1, S2. No: Murmurs Abdomen: Present: Tenderness (erythema, induration, and tenderness on lower abdominal region), Normal Bowel Sounds, Other (noted suprapubic swelling/ induration and noted tenderness on exam; no expressible discharge/pus is noted, no gross bleeding noted; + right mid/lower urostomy site is noted with dark/ yellow urine/non-bloody). No: Distention, Peritoneal Signs Back: Present: Normal Inspection Upper Extremity: Present: Normal Inspection, NORMAL PULSES, Neurovascularly Intact, Capillary Refill < 2s. No: Cyanosis, Edema Lower Extremity: Present: Normal Inspection, NORMAL PULSES, Normal ROM, Neurovascularly Intact, Capillary Refill < 2 s. No: Edema Neurological: Present: GCS=15, CN II-XII Intact, Speech Normal Skin: Present: Warm, Dry, Other (slight pallor is noted, cap refill ~ 1 sec, noted left medial mid tib/fib ulceration (well healing), no surrounding skin erythema is noted). No: Rashes Psychiatric: Present: Alert, Oriented x 3, Normal Insight, Normal Concentration Medical Decision Making ED Course and Treatment: 06/27/17 Impression: 61 year old female with erythema, induration, and tenderness in lower abdominal region. I have considered all Differential Diagnosis regarding pt's chief medical complaints/clinical findings included but are not limited to: Plan: -- EKG -- Chest X-ray -- Labs -- Dilaudid, Vancomycin, Piperacillin, Sodium Chloride -- Urinalysis -- Reassess and disposition Progress Notes: Case discussed with Dr. Hernadez who was at bedside evaluating patient along with me. She agrees with emergency department management and agrees with antibiotics. Dr. Hernadez spoke to Dr. Navarro who will come to bedside to evaluate patient. Patient will be admitted at her service for further treatment/ care/mgt 06/27/17 14:[address] Lake (oncology) who is made aware of patient's presentation and will continue to follow up with patient under Dr. Hernadez's admission. 06/27/17 20:01 pt felt improved after pain medications pt is currently comfortable pt is made aware of her medical results agrees with admission 06/27/17 20:14 Dr Alexandra is at bedside, evaluated pt, would like a ct abd/pelvis to characterize lower abd tenderness, will continue to evaluate/consult on patient Re-evaluation Time: 18:00 Reassessment Condition: Improving,but remains with symptoms - Lab Interpretations I have reviewed the lab results: Yes Interpretation: All labs normal - RAD Interpretation Narrative RAD Interpretations (Text): 06/27/17 13:00 Chest X-ray: Creator : Harjeet Dyer MD COMPARISON: 05/29/2017 FINDINGS: LUNGS: No active pulmonary disease. PLEURA: No significant pleural effusion identified, no pneumothorax apparent. CARDIOVASCULAR: Normal. OSSEOUS STRUCTURES: No significant abnormalities. VISUALIZED UPPER ABDOMEN: Normal. OTHER FINDINGS: Right-sided Port-A-Cath. Left-sided pacemaker IMPRESSION: No active disease. Radiology Orders: 06/27/17 11:46 CHEST PORTABLE [RAD] Stat CT abd/pelvis: large pelvic mass that is unchanged in size; fluid collection in the left Inguinal region which contains a small focus of air; this is prob due to recent catheter or line placement; there is also some subcut edema in the right groin CXR: right sided port-a cath; left sided pacemaker; NAD otherwise Ceramics Engineer: Radiologist - EKG Interpretation EKG Interpretation (Text): 06/27/17 20:09 sinus tach at 120 bpm, NAD, + ectopy, voltage criteria LVH, non-specific st-t changes, ABNL EKG; unchanged compare with old ekg 06/1106/27/17 20:10 Interpreted by ED Physician: Yes Type: 12 lead EKG Comparison: Similar to previous EKG - Medication Orders Current Medication Orders: Docusate Sodium (Colace) 200 mg PO DAILY YUMI Hydromorphone HCl (Dilaudid) 1 mg IVP Q4H PRN PRN Reason: Pain, moderate (4-7) Last Admin: 06/27/17 18:15 Dose: 1 mg [facility] Pain Assessment Document 06/27/17 18:15 MV (Rec: 06/27/17 18:17 MV [id number]) Pain Reassessment Is this a pain reassessment? No Sleep Is patient sleeping during reassessment? No Presence of Pain Presence of Pain Yes Pain Scale Used Pain Scale Used Numeric Location Left, Right or Bilateral Bilateral Pain Location Body Site Groin Description Description Throbbing Intensity of Pain at present 10 Pain Behavior Irritability Restlessness Facial Grimacing Alleviating Factors/Management Medication Techniques Alleviating Factors Medication IVP Administration Document 06/27/17 18:15 MV (Rec: 06/27/17 18:17 MV [id number]) Charges for Administration # of IVP Administrations 2 Re-Assess: [facility] Pain Assessment Document 06/27/17 19:15 GM (Rec: 06/27/17 19:45 GM [id number]) Pain Reassessment Is this a pain reassessment? Yes Presence of Pain Presence of Pain No Sodium Chloride (Sodium Chloride 0.9%) 1,000 mls @ 150 mls/hr IV .Q6H40M YUMI Last Admin: 06/27/17 16:03 Dose: 150 mls/hr eMAR Start Stop Document 06/27/17 16:03 MV (Rec: 06/27/17 16:03 MV [id number]) Intravenous Solution Start Date 06/27/17 Start Time 16:03 End Date 06/27/17 Vancomycin HCl (Vancomycin 1gm) 1 gm in 250 mls @ 167 mls/hr IVPB Q12H [facility]I PRN Reason: Protocol Last Admin: 06/27/17 17:21 Dose: 167 mls/hr eMAR Start Stop Document 06/27/17 17:21 MV (Rec: 06/27/17 17:21 MV [id number]) Intravenous Solution Start Date 06/27/17 Start Time 17:21 End Date 06/27/17 End time 18:51 Total Infusion Time 90 Piperacillin Sod/Tazobactam Sod (Zosyn 3.375 In Ns 100ml) 100 mls @ 200 mls/hr IVPB Q6 YUMI PRN Reason: Protocol Stop: 06/28/17 00:29 Non-Formulary Medication (Glatiramer Acetate [Copaxone]) 40 mg SQ MWF [facility] Pregabalin (Lyrica) 100 mg PO BID [facility]UMI Last Admin: 06/27/17 18:15 Dose: 100 mg Tizanidine HCl (Zanaflex) 4 mg PO HS [facility]I Discontinued Medications Hydromorphone HCl (Dilaudid) 1 mg IVP STAT STA Stop: 06/27/17 11:48 Last Admin: 06/27/17 12:52 Dose: Hydromorphone HCl (Dilaudid) 1 mg IVP STAT STA Stop: 06/27/17 11:55 Last Admin: 06/27/17 12:30 Dose: 1 mg BRITT Pain Assessment Document 06/27/17 12:30 SIL (Rec: 06/27/17 12:42 SIL COUCH) Pain Reassessment Is this a pain reassessment? No Sleep Is patient sleeping during reassessment? No Presence of Pain Presence of Pain Yes Pain Scale Used Pain Scale Used Numeric Description Description Intermittent IVP Administration Document 06/27/17 12:30 SIL (Rec: 06/27/17 12:42 SIL COUCH) Charges for Administration # of IVP Administrations 1 Re-Assess: BRITT Pain Assessment Document 06/27/17 13:30 SIL (Rec: 06/27/17 15:25 SIL COUCH) Pain Reassessment Is this a pain reassessment? Yes Sleep Is patient sleeping during reassessment? No Presence of Pain Presence of Pain No Vancomycin HCl (Vancomycin 1gm) 1 gm in 250 mls @ 167 mls/hr IVPB STAT STA PRN Reason: Protocol Stop: 06/27/17 13:17 Last Admin: 06/27/17 13:10 Dose: 167 mls/hr eMAR Start Stop Document 06/27/17 13:10 SIL (Rec: 06/27/17 13:28 SIL COUCH) Intravenous Solution Start Date 06/27/17 Start Time 13:10 End Date 06/27/17 End time 14:40 Total Infusion Time 90 Piperacillin Sod/Tazobactam Sod (Zosyn 3.375 In Ns 100ml) 100 mls @ 200 mls/hr IVPB STAT STA PRN Reason: Protocol Stop: 06/27/17 12:17 Last Admin: 06/27/17 12:42 Dose: 200 mls/hr eMAR Start Stop Document 06/27/17 12:42 SIL (Rec: 06/27/17 12:43 SIL [id number]) Intravenous Solution Start Date 06/27/17 Start Time 12:42 End Date 06/27/17 End time 13:15 Total Infusion Time 33 Pneumococcal Polyvalent Vaccine (Pneumovax 23 Vaccine) 0.5 ml IM .ONCE ONE Stop: 06/27/17 17:12 - Scribe Statement The provider has reviewed the documentation as recorded by the Seanibmarty Silva Provider Scribe Attestation: All medical record entries made by the Scribe were at my direction and personally dictated by me. I have reviewed the chart and agree that the record accurately reflects my personal performance of the history, physical exam, medical decision making, and the department course for this patient. I have also personally directed, reviewed, and agree with the discharge instructions and disposition. Disposition/Present on Arrival - Present on Arrival Any Indicators Present on Arrival: No History of DVT/PE: No History of Uncontrolled Diabetes: No Urinary Catheter: Yes History of Decub. Ulcer: No History Surgical Site Infection Following: None - Disposition Have Diagnosis and Disposition been Completed?: Yes Diagnosis: At risk for sepsis, Abdominal wall cellulitis, Intractable abdominal pain, Ovarian cancer Disposition: HOSPITALIZED Disposition Time: 15:30 Patient Plan: Admission, Telemetry Patient Problems: Current Active Problems Problem Status Onset Abdominal wall cellulitis Acute At risk for sepsis Acute Intractable abdominal pain Acute Ovarian cancer Acute Condition: FAIR
[2017-06-27] MEDS ORDERED: HYDROmorphone 0.5 mg/0.5 ml ISec IVP STA (11:54)
--- NOTE | 2017-06-27 12:18 | RAD ---
HISTORY: Sepsis Patient COMPARISON: 05/29/2017 FINDINGS: LUNGS: No active pulmonary disease. PLEURA: No significant pleural effusion identified, no pneumothorax apparent. CARDIOVASCULAR: Normal. OSSEOUS STRUCTURES: No significant abnormalities. VISUALIZED UPPER ABDOMEN: Normal. OTHER FINDINGS: Right-sided Port-A-Cath. Left-sided pacemaker IMPRESSION: No active disease.
[2017-06-27] MEDS: Sodium Chloride 0.9% 1,000 ML IV SCH ×2 (12:30→16:03)
[2017-06-27 12:36] LABS: VENOUS BLOOD GAS BASE EXCESS -0.2 mmol/L (0.0-2.0); VENOUS BLOOD GAS PO2 42 mm/Hg (30-55); VENOUS BLOOD PH 7.37 (7.32-7.43)
[2017-06-27 12:38] LABS: BASO # 0.06 K/mm3 (0.0-2.0); BASO % 0.7 % (0.0-3.0); EOS # 0.1 (0.0-0.7); EOS % 0.6 % (1.5-5.0); GRAN # 6.69 (1.4-6.5); GRAN % 82.3 % (50.0-68.0); HEMOGLOBIN 11.4 g/dL (12.0-16.0); LYMPH # 0.7 (1.2-3.4); LYMPH % 8.8 % (22.0-35.0); MEAN CELL VOLUME 89.5 fl (80.0-105.0); MEAN CORPUSCULAR HEMOGLOBIN 29.2 pg (25.0-35.0); MEAN CORPUSCULAR HGB CONC 32.7 g/dl (31.0-37.0); MEAN PLATELET VOLUME 9.2 fl (7.0-11.0); MONO # 0.6 (0.1-0.6); MONO % 7.6 % (1.0-6.0); RBC 3.9 10^6/uL (3.5-6.1); WHITE BLOOD COUNT 8.1 10^3/ul (4.5-11.0)
[2017-06-27 12:45] LABS: INR 1.09 (0.93-1.08); PARTIAL THROMBOPLASTIN TIME 28.5 Seconds (25.1-36.5)
[2017-06-27 12:55] LABS: ALBUMIN 3.9 g/dL (3.0-4.8); ALT/SGPT 18 U/L (7-56); AST/SGOT 28 U/L (14-36); BLOOD UREA NITROGEN 16 mg/dL (7-21); CALCIUM 10.2 mg/dL (8.4-10.5); GFR AFRICAN-AMERICAN > 60; GFR NON-AFRICAN AMERICAN 56; MAGNESIUM 1.7 mg/dL (1.7-2.2)
[2017-06-27 12:59] LABS: TROPONIN I < 0.01 ng/mL
--- NOTE | 2017-06-27 15:37 | CT ---
PROCEDURE: CT Abdomen and Pelvis without intravenous contrast HISTORY: ovarian cancer COMPARISON: None. TECHNIQUE: Without contrast. Contrast Dose: Radiation dose: Total exam DLP = 443 mGy-cm. This CT exam was performed using one or more of the following dose reduction techniques: Automated exposure control, adjustment of the mA and/or kV according to patient size, and/or use of iterative reconstruction technique. FINDINGS: LOWER THORAX: Unremarkable. LIVER: Unremarkable. No gross lesion or ductal dilatation. GALLBLADDER AND BILE DUCTS: Unremarkable. PANCREAS: Unremarkable. No gross lesion or ductal dilatation. SPLEEN: Unremarkable. ADRENALS: Unremarkable. No mass. KIDNEYS AND URETERS: Unremarkable. No hydronephrosis. No solid mass. VASCULATURE: Unremarkable. No aortic aneurysm. BOWEL: Unremarkable. No obstruction. No gross mural thickening. There is an ostomy in the right lower quadrant. APPENDIX: Unremarkable. Normal appendix. PERITONEUM: Unremarkable. No free fluid. No free air. LYMPH NODES: Unremarkable. No enlarged lymph nodes. BLADDER: Unremarkable. REPRODUCTIVE: There is a large pelvic mass that is unchanged in size. This measures 10 x 8 cm as seen on image 137 series 3. The previous study was performed with contrast which shows the mass to be multi locular and cystic BONES: No acute fracture. OTHER FINDINGS: There is a fluid collection in the left inguinal region which contains a small focus of air. This is probably due to recent catheter or line placement. There is also some subcutaneous edema in the region of the right groin. Clinical correlation is suggested. IMPRESSION: No change in pelvic mass
--- NOTE | 2017-06-27 16:00 | CP.PCM.PCO ---
Physician Communication Note - Physician Communication Note Physician Communication Note: Painful Inguinal fluid/tumor-Needs drainage w sedation
--- NOTE | 2017-06-27 16:43 | CP.PCM.CON ---
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 Patient reports that one week prior she was seen in Dr. Navarro office were a bedside I &D was performed bilaterally to her mons pubis for drainage of suspected inguinal abscess/fluid collection. Patient reports for three days following I&D pus, serosanguinous fluid drained from each incision site. Patient indicated that drainage stopped after a few days and for the past 3 days she has been experiencing progressively worsening pain, erythema associated with incisional sites. Patient recently reports subjective fever, nausea and vomiting over past 2 days. Patient reports area surrounding incision sites has become tender to touch as well as firm. Patient denies chest pain, shortness of breath, discharge, diarrhea, constipation, dysuria, hematuria, flank pain. PMH: Hx of bladder cancer, Ovarian Cancer, HTN, Multiple Sclerosis, PUD, hx of cardiomyopathy, CAD s/p angioplasty of LAD(BMS) PSH: G tube reversal, Right sided urostomy, ICD. Partial hysterectomy and ileal conduit formation, oophorectomy SOCHx: Tobacco: Former, quit 2.5 years ago, hx of 1ppd ETOH: Denies, Illicit drugs: denies ALL: NKDA Med: MAR reviewed PMD: Dr. Hernadez Review of Systems - Review of Systems All systems: reviewed and no additional remarkable complaints except (otherwise mentioned in HPI) Past Patient History - Infectious Disease Hx of Infectious Diseases: None - Tetanus Immunizations Tetanus Immunization: Up to Date - Past Medical History & Family History Past Medical History?: Yes - Past Social History Smoking Status: Former Smoker Alcohol: None Drugs: Denies - CARDIAC Hx Cardiac Disorders: Yes (s/p angioplasty) - PULMONARY Hx Respiratory Disorders: No - NEUROLOGICAL Hx Neurological Disorder: Yes Hx Multiple Sclerosis: Yes Other/Comment: 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 - HEENT Hx HEENT Problems: No Other/Comment: wears glasses - RENAL Hx Chronic Kidney Disease: Yes Other/Comment: bladder stones/ cancer - ENDOCRINE/METABOLIC Hx Endocrine Disorders: No - HEMATOLOGICAL/ONCOLOGICAL Hx Blood Transfusions: No Hx Blood Transfusion Reaction: No - INTEGUMENTARY Hx Dermatological Problems: No - MUSCULOSKELETAL/RHEUMATOLOGICAL Hx Musculoskeletal Disorders: Yes - GASTROINTESTINAL Hx Gastrointestinal Disorders: Yes Hx Vomiting: No - GENITOURINARY/GYNECOLOGICAL Hx Genitourinary Disorders: Yes Hx Bladder Cancer: Yes Hx Bladder Stone: Yes Hx Ovarian Cancer: Yes Other/Comment: + R side urostomy - PSYCHIATRIC Hx Emotional Abuse: No Hx Physical Abuse: No Hx Substance Use: No - SURGICAL HISTORY Other/Comment: Gtube reversal. R side urostomy. L side pacemaker/ defibrillator. Partial hysterectomy - ANESTHESIA Hx Anesthesia Reactions: No Hx Malignant Hyperthermia: No Meds Allergies/Adverse Reactions: Allergies Allergy/AdvReac Type Severity Reaction Status Date / Time No Known Allergies Allergy Verified 06/27/17 16:30 - Medications Medications: Current Medications Sodium Chloride (Sodium Chloride 0.9%) 1,000 mls @ 150 mls/hr IV .Q6H40M [facility] Last Admin: 06/27/17 16:03 Dose: 150 mls/hr Vancomycin HCl (Vancomycin 1gm) 1 gm in 250 mls @ 167 mls/hr IVPB Q12H [facility] PRN Reason: Protocol Physical Exam - Constitutional Appears: Non-toxic, No Acute Distress - Head Exam Head Exam: ATRAUMATIC - Eye Exam Eye Exam: EOMI - ENT Exam ENT Exam: Mucous Membranes Moist - Respiratory Exam Respiratory Exam: Clear to Auscultation Bilateral, NORMAL BREATHING PATTERN - Cardiovascular Exam Cardiovascular Exam: REGULAR RHYTHM, +S1, +S2 - GI/Abdominal Exam GI & Abdominal Exam: Firm (indurated area located at mons pubis to suprapubic region), Normal Bowel Sounds, Tenderness (suprapubic tenderness, mid epigastric tenderness). absent: Guarding - Extremities Exam Extremities exam: Negative for: calf tenderness - Back Exam Back exam: NORMAL INSPECTION. absent: CVA tenderness (L), CVA tenderness (R) - Neurological Exam Neurological exam: Alert, Oriented x3 - Psychiatric Exam Psychiatric exam: Normal Affect, Normal Mood - Skin Skin Exam: Dry, Intact Results - Vital Signs Recent Vital Signs: Last Vital Signs Temp 98.8 F 06/27/17 15:16 Pulse 92 H 06/27/17 15:16 Resp 18 06/27/17 15:16 BP 121/76 06/27/17 15:16 Pulse Ox 99 06/27/17 15:16 - Labs Result Diagrams: 06/27/17 12:00 06/27/17 12:00 Labs: Laboratory Results - last 24 hr 06/27/17 06/27/17 06/27/17 12:00 12:00 12:00 WBC 8.1 RBC 3.90 Hgb 11.4 L Hct 34.9 L MCV 89.5 MCH 29.2 MCHC 32.7 RDW 15.0 H Plt Count 453 H MPV 9.2 Gran % 82.3 H Lymph % (Auto) 8.8 L [place] % (Auto) 7.6 H Eos % (Auto) 0.6 L Baso % (Auto) 0.7 Gran # 6.69 H Lymph # 0.7 L [place] # 0.6 Eos # 0.1 Baso # 0.06 PT 12.0 INR 1.09 H APTT 28.5 pO2 42 VBG pH 7.37 VBG pCO2 44.0 VBG HCO3 25.4 VBG Total CO2 26.8 VBG O2 Sat (Calc) 81.9 H VBG Base Excess -0.2 L VBG Potassium 3.8 Sodium 142.0 Chloride 109.0 H Glucose 107 H Lactate 1.4 FiO2 21.0 Potassium Carbon Dioxide Anion Gap BUN Creatinine Est GFR ( Amer) Est GFR (Non-Af Amer) Random Glucose Calcium Phosphorus Magnesium Total Bilirubin AST ALT Alkaline Phosphatase Troponin I Total Protein Albumin Globulin Albumin/Globulin Ratio Venous Blood Potassium 3.8 06/27/17 12:00 WBC RBC Hgb Hct MCV MCH MCHC RDW Plt Count MPV Gran % Lymph % (Auto) [place] % (Auto) Eos % (Auto) Baso % (Auto) Gran # Lymph # [place] # Eos # Baso # PT INR APTT pO2 VBG pH VBG pCO2 VBG HCO3 VBG Total CO2 VBG O2 Sat (Calc) VBG Base Excess VBG Potassium Sodium 143 Chloride 107 Glucose Lactate FiO2 Potassium 3.6 Carbon Dioxide 25 Anion Gap 15 BUN 16 Creatinine 1.0 Est GFR ( Amer) > 60 Est GFR (Non-Af Amer) 56 Random Glucose 109 Calcium 10.2 Phosphorus 3.4 Magnesium 1.7 Total Bilirubin 0.5 AST 28 ALT 18 Alkaline Phosphatase 95 Troponin I < 0.01 Total Protein 7.7 Albumin 3.9 Globulin 3.8 Albumin/Globulin Ratio 1.0 L Venous Blood Potassium Assessment & Plan - Assessment and Plan (Free Text) Assessment: 61 year old female past medical history of chemo treatment for bladder and ovarian CA in remission who is s/p CT guided lymph node biopsy requiring drainage of suspected infected inguinal lymph node Plan: -s/p CT guided lymph node biopsy -s/p in office I&D one week prior -NPO aftermidnight -Analgesic PRN -OR for drainage of inguinal lymph node -Further recommendations per Dr. Ramon Boateng PGY1 - Date & Time Date: 06/27/17 Time: 16:44 <Kumar Navarro - Last Filed: 06/28/17 13:16> Meds - Medications Medications: Current Medications Acetaminophen (Tylenol 325mg Tab) 650 mg PO Q6H PRN PRN Reason: Fever >100.4 F Last Admin: 06/28/17 09:34 Dose: 650 mg Docusate Sodium (Colace) 200 mg PO DAILY [facility] Last Admin: 06/28/17 09:03 Dose: Not Given Hydromorphone HCl (Dilaudid) 0.5 mg IVP Q15M PRN PRN Reason: Pain, severe (8-10) Stop: 06/28/17 13:13 Hydromorphone HCl (Dilaudid) 1 mg IVP Q4H PRN PRN Reason: Pain, severe (8-10) Sodium Chloride (Sodium Chloride 0.9%) 1,000 mls @ 150 mls/hr IV .Q6H40M [facility] Last Admin: 06/28/17 00:16 Dose: 150 mls/hr Vancomycin HCl (Vancomycin 1gm) 1 gm in 250 mls @ 167 mls/hr IVPB Q12H [facility] PRN Reason: Protocol Last Admin: 06/28/17 05:20 Dose: 167 mls/hr Meropenem (Merrem Iv 1 Gm Premix) 50 mls @ 100 mls/hr IVPB Q12 [facility] PRN Reason: Protocol Stop: 07/05/17 10:01 Last Admin: 06/28/17 09:21 Dose: 100 mls/hr Lactated Ringer's (Lactated Ringer's) 1,000 mls @ 75 mls/hr IV .[id number] [facility] Stop: 06/28/17 13:16 Non-Formulary Medication (Glatiramer Acetate [Copaxone]) 40 mg SQ MWF [facility] Oxycodone/Acetaminophen (Percocet 5/325 Mg Tab) 1 tab PO Q6H PRN PRN Reason: Pain, moderate (4-7) Stop: 07/01/17 11:18 Pregabalin (Lyrica) 100 mg PO BID [facility] Last Admin: 06/28/17 09:22 Dose: 100 mg Tizanidine HCl (Zanaflex) 4 mg PO [facility] Last Admin: 06/28/17 00:00 Dose: 4 mg Results - Vital Signs Recent Vital Signs: Last Vital Signs Temp 99.7 F H 06/28/17 11:40 Pulse 85 06/28/17 11:40 Resp 16 06/28/17 11:40 BP 124/78 06/28/17 11:40 Pulse Ox 98 06/28/17 11:40 - Labs Result Diagrams: 06/27/17 12:00 06/27/17 12:00 Labs: Laboratory Results - last 24 hr 06/27/17 06/27/17 06/27/17 12:00 12:00 12:00 pO2 42 VBG pH 7.37 VBG pCO2 44.0 VBG HCO3 25.4 VBG Total CO2 26.8 VBG O2 Sat (Calc) 81.9 H VBG Base Excess -0.2 L VBG Potassium 3.8 Sodium 142.0 143 Chloride 109.0 H 107 Glucose 107 H Lactate 1.4 FiO2 21.0 Potassium 3.6 Carbon Dioxide 25 Anion Gap 15 BUN 16 Creatinine 1.0 Est GFR ( Amer) > 60 Est GFR (Non-Af Amer) 56 Random Glucose 109 Calcium 10.2 Phosphorus 3.4 Magnesium 1.7 Total Bilirubin 0.5 AST 28 ALT 18 Alkaline Phosphatase 95 Troponin I < 0.01 Total Protein 7.7 Albumin 3.9 Globulin 3.8 Albumin/Globulin Ratio 1.0 L Procalcitonin < 0.05 L Venous Blood Potassium 3.8 Urine Color Urine Appearance Urine pH Ur Specific [place] Urine Protein Urine Glucose (UA) Urine Ketones Urine Blood Urine Nitrate Urine Bilirubin Urine Urobilinogen Ur Leukocyte Esterase Urine RBC Urine WBC Urine Bacteria 06/28/17 06:40 pO2 VBG pH VBG pCO2 VBG HCO3 VBG Total CO2 VBG O2 Sat (Calc) VBG Base Excess VBG Potassium Sodium Chloride Glucose Lactate FiO2 Potassium Carbon Dioxide Anion Gap BUN Creatinine Est GFR ( Amer) Est GFR (Non-Af Amer) Random Glucose Calcium Phosphorus Magnesium Total Bilirubin AST ALT Alkaline Phosphatase Troponin I Total Protein Albumin Globulin Albumin/Globulin Ratio Procalcitonin Venous Blood Potassium Urine Color Yellow Urine Appearance Sl cloudy Urine pH 6.0 Ur Specific [place] 1.015 Urine Protein Negative Urine Glucose (UA) Negative Urine Ketones Negative Urine Blood Trace-intact H Urine Nitrate Negative Urine Bilirubin Negative Urine Urobilinogen 0.2 Ur Leukocyte Esterase Moderate H Urine RBC 0 - 2 Urine WBC Tntc Urine Bacteria Trace
[2017-06-27 17:11] VITALS: BMI 22.8
[2017-06-27] MEDS ORDERED: Influenza Vaccine 60 mcg/0.5 mL SYR (4YR UP) IM ONE (17:11)
[2017-06-27] MEDS ORDERED: Pneumococcal 23-Valent Vaccine IM ONE (17:11)
[2017-06-27] MEDS: Vancomycin 1gm in NS 250ml 1 GM/250 ML BAG IVPB SCH (17:21)
--- NOTE | 2017-06-27 17:38 | CARD ---
APPROVED REPORT EKG Measurement Heart [id number] <Conclusion> Sinus tachycardia Possible Left atrial enlargement Left ventricular hypertrophy with QRS widening and repolarization abnormality Abnormal ECG
[2017-06-27] MEDS ORDERED: Oxycodone/Acetaminophen 5/325 mg Tab PO PRN (17:41)
[2017-06-27] MEDS: HYDROmorphone 0.5 mg/0.5 ml ISec IVP PRN (18:15)
[2017-06-27] MEDS: Piperacillin/Tazobact 3.375 gm 100 ML IVPB SCH (21:36)
[2017-06-28] MEDS ORDERED: Morphine 2 mg/ml ISec IVP PRN (00:01)
[2017-06-28] MEDS: HYDROmorphone 0.5 mg/0.5 ml ISec IVP PRN ×5 (00:01→22:41)
[2017-06-28] MEDS: Sodium Chloride 0.9% 1,000 ML IV SCH (00:16)
--- NOTE | 2017-06-28 02:13 | HP ---
HISTORY OF PRESENT ILLNESS: The patient is a 61-year-old who was recently admitted with left kyle nonhealing ulcer. 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 At the incision site in the left groin, the patient had some drainage; however, she was given antibiotics, felt better, and was sent home. The patient states she has been having increasing pain and swelling in the pubic area, so she saw Dr. Lake who referred her to come to Emergency Room. She was having chills and fever. Denies any nausea or vomiting. PAST MEDICAL HISTORY: Significant for: 1. Bladder CA, status post cystectomy and had ileal conduit formation. 2. History of ovarian CA, status post total abdominal hysterectomy with oophorectomy. 3. Peptic ulcer disease. 4. History of PEG placement because of dysphagia, but currently she is tolerating food orally. 5. History of cardiomyopathy. 6. History of multiple sclerosis. ALLERGIES: THE PATIENT IS NOT ALLERGIC TO ANY MEDICATIONS. MEDICATIONS AT HOME: She is on Lyrica 200 mg twice a day; Copaxone takes every Monday, Monday, and Monday; vitamin D; ascorbic acid; and Zanaflex at bedtime. SOCIAL HISTORY: The patient is and lives with her . Denies smoking or drinking. REVIEW OF SYSTEMS: Significant for pubic pain and difficulty walking. PHYSICAL EXAMINATION: GENERAL: The patient is awake, alert, oriented, and communicative. VITAL SIGNS: She is afebrile, pulse 92, respirations 18, and blood pressure 121/76. LUNGS: Bilateral fair airflow. No rhonchi or crackle. HEART: S1 and S2 audible. ABDOMEN: Soft and nontender. No rebound. No guarding. NEUROLOGIC: The patient is awake, alert, and able to communicate. GASTROINTESTINAL: She has ileal conduit that is draining clear urine and she has induration in her pubic area with erythema in the left groin. LABORATORY DATA: WBC is 8.1, hemoglobin 11.4, hematocrit 34.9, and platelets of 453. PT 12.0 and INR 1.0. Chemistry; sodium 143, potassium 3.6, chloride 107, CO2 of 25, BUN 16, creatinine 1.0, and blood sugar of 109. LFTs are within normal limits. ASSESSMENT: 1. Pubic cellulitis. 2. History of ovarian cancer, status post left lymph node excision. 3. Hypertension. 4. History of multiple sclerosis. 5. Status post bladder cancer with total cystectomy. PLAN: The patient will be admitted. We will start on IV antibiotics. Start give her analgesic. Dr. Lake and Dr. Anglin has been consulted. Kimberley Hernadez MD
[2017-06-28] MEDS: Piperacillin/Tazobact 3.375 gm 100 ML IVPB SCH (03:55)
[2017-06-28] MEDS: Vancomycin 1gm in NS 250ml 1 GM/250 ML BAG IVPB SCH ×2 (05:20→17:52)
[2017-06-28 07:43] LABS: URINE BILIRUBIN NEGATIVE (NEGATIVE); URINE BLOOD TRACE-INTACT (NEGATIVE); URINE GLUCOSE (UA) NEGATIVE (NEGATIVE); URINE LEUKOCYTE ESTERASE MODERATE Leu/uL (NEGATIVE); URINE NITRATE NEGATIVE (NEGATIVE); URINE PROTEIN NEGATIVE mg/dL (<30 mg/dL); URINE UROBILINOGEN 0.2 E.U./dL (<1 E.U./dL)
[2017-06-28 07:48] LABS: URINE APPEARANCE SL CLOUDY (CLEAR); URINE COLOR YELLOW (YELLOW)
[2017-06-28 08:04] LABS: URINE BACTERIA TRACE (NEG); URINE RBC 0 - 2 /hpf (0-2); URINE WBC TNTC /hpf (0-6)
[2017-06-28] MEDS ORDERED: Midazolam 2 MG/2 ML VIAL ONE (09:30)
[2017-06-28] MEDS ORDERED: Propofol 10 mg/ml Inj (20 ML) ONE (09:30)
[2017-06-28] MEDS ORDERED: Bupivacaine 0.5% Inj(30mL) ONE (09:56)
[2017-06-28] MEDS ORDERED: Meropenem IV 1 gm in NS 50 ML IVPB SCH (10:00)
[2017-06-28] MEDS: GLATIRAMER ACETATE 40 MG SQ SCH (10:00)
[2017-06-28] MEDS ORDERED: HYDROmorphone 0.5 mg/0.5 ml ISec IVP PRN (11:13)
[2017-06-28] MEDS ORDERED: Lactated Ringer's 1,000 ML IV SCH (11:15)
--- NOTE | 2017-06-28 11:15 | PCM.SURG1 ---
Surgeon's Initial Post Op Note - Surgeon's Notes Surgeon: Dr. Navarro Quill Cleaning Machine Operator: Erlin PGY1 Type of Anesthesia: MAC, IV Sedation Anesthesia Administered By: Dr. Itz Espinosa Pre-Operative Diagnosis: Bilateral Inguinal Abscesses Operative Findings: see operative report Post-Operative Diagnosis: same Operation Performed: Bilateral Inguinal Abscess Incision and Drainage Specimen/Specimens Removed: Wound Culture x2, Debrided tissue x2. Estimated Blood Loss: EBL {In ML}: 5 Blood Products Given: N/A Drains Used: No Drains Post-Op Condition: Good Date of Surgery/Procedure: 06/28/17 Time of Surgery/Procedure: 11:15
[2017-06-28] MEDS ORDERED: Oxycodone/Acetaminophen 5/325 mg Tab PO PRN (11:17)
--- NOTE | 2017-06-28 15:38 | CP.PCM.CON ---
History of Present Illness - History of Present Illness History of Present Illness: 61 year old female with PMH of urinary bladder / urethral cancer, ovarian cancer , multiple sclerosis, S/P pacemaker placement, S/P right sided port-a-cath placement was recently admitted for chronic left leg ulcers and was treated with wound care and antibiotics. She also had a biopsy of left inguinal lymph nodes which proved to be ovarian cancer metastasis. She was discharged in May and was being seen as an outpatient for wound care of left inguinal area. She developed a possible collection in the said area and I and D was done as an outpatient. She is still having pain in the area as well as subjective fevers and is going for OR today for the left inguinal area. She has no diarrhea , no dysuria, no nausea or vomiting, no SOB, no chest pain, no cough or colds. Infectious Diseases consult is requested to further evaluate and manage. Review of Systems - Review of Systems All systems: reviewed and no additional remarkable complaints except (as per HPI ) 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 - HEENT Hx HEENT Problems: No Other/Comment: wears glasses - RENAL Hx Chronic Kidney Disease: Yes Other/Comment: bladder stones/ cancer - ENDOCRINE/METABOLIC Hx Endocrine Disorders: No - HEMATOLOGICAL/ONCOLOGICAL Hx Blood Transfusions: No Hx Blood Transfusion Reaction: No - INTEGUMENTARY Hx Dermatological Problems: No - MUSCULOSKELETAL/RHEUMATOLOGICAL Hx Musculoskeletal Disorders: Yes - GASTROINTESTINAL Hx Gastrointestinal Disorders: Yes Hx Vomiting: No - GENITOURINARY/GYNECOLOGICAL Hx Genitourinary Disorders: Yes Hx Bladder Cancer: Yes Hx Bladder Stone: Yes Hx Ovarian Cancer: Yes Other/Comment: + R side urostomy - PSYCHIATRIC Hx Emotional Abuse: No Hx Physical Abuse: No Hx Substance Use: No - SURGICAL HISTORY Hx Surgeries: Yes - ANESTHESIA Hx Anesthesia Reactions: No Hx Malignant Hyperthermia: No Meds Allergies/Adverse Reactions: Allergies Allergy/AdvReac Type Severity Reaction Status Date / Time No Known Allergies Allergy Verified 06/27/17 16:30 - Medications Medications: Current Medications Docusate Sodium (Colace) 200 mg PO DAILY [facility] Hydromorphone HCl (Dilaudid) 1 mg IVP Q4H PRN PRN Reason: Pain, moderate (4-7) Last Admin: 06/28/17 00:01 Dose: 1 mg Sodium Chloride (Sodium Chloride 0.9%) 1,000 mls @ 150 mls/hr IV .Q6H40M [facility] Last Admin: 06/28/17 00:16 Dose: 150 mls/hr Vancomycin HCl (Vancomycin 1gm) 1 gm in 250 mls @ 167 mls/hr IVPB Q12H [facility] PRN Reason: Protocol Last Admin: 06/28/17 05:20 Dose: 167 mls/hr Meropenem (Merrem Iv 1 Gm Premix) 50 mls @ 100 mls/hr IVPB Q12 [facility] PRN Reason: Protocol Stop: 07/05/17 10:01 Non-Formulary Medication (Glatiramer Acetate [Copaxone]) 40 mg SQ MWF [facility] Pregabalin (Lyrica) 100 mg PO BID [facility] Last Admin: 06/27/17 18:15 Dose: 100 mg Tizanidine HCl (Zanaflex) 4 mg PO HS [facility] Last Admin: 06/28/17 00:00 Dose: 4 mg Physical Exam - Constitutional Appears: Non-toxic, Chronically Ill - Head Exam Head Exam: NORMAL INSPECTION - ENT Exam ENT Exam: Mucous Membranes Moist - Neck Exam Neck exam: Negative for: Meningismus - Respiratory Exam Respiratory Exam: Decreased Breath Sounds - Cardiovascular Exam Cardiovascular Exam: +S1, +S2 - GI/Abdominal Exam GI & Abdominal Exam: Soft. absent: Tenderness Additional comments: left inguinal area with dressings in place Results - Vital Signs Recent Vital Signs: Last Vital Signs Temp 98.9 F 06/28/17 00:00 Pulse 84 06/28/17 06:00 Resp 20 06/28/17 00:00 BP 98/62 L 06/28/17 00:00 Pulse Ox 98 06/28/17 00:00 - Labs Result Diagrams: 06/27/17 12:00 06/27/17 12:00 Labs: Laboratory Results - last 24 hr 06/27/17 06/27/17 06/27/17 12:00 12:00 12:00 WBC 8.1 RBC 3.90 Hgb 11.4 L Hct 34.9 L MCV 89.5 MCH 29.2 MCHC 32.7 RDW 15.0 H Plt Count 453 H MPV 9.2 Gran % 82.3 H Lymph % (Auto) 8.8 L [place] % (Auto) 7.6 H Eos % (Auto) 0.6 L Baso % (Auto) 0.7 Gran # 6.69 H Lymph # 0.7 L [place] # 0.6 Eos # 0.1 Baso # 0.06 PT 12.0 INR 1.09 H APTT 28.5 pO2 VBG pH VBG pCO2 VBG HCO3 VBG Total CO2 VBG O2 Sat (Calc) VBG Base Excess VBG Potassium Sodium Chloride Glucose Lactate FiO2 Potassium Carbon Dioxide Anion Gap BUN Creatinine Est GFR ( Amer) Est GFR (Non-Af Amer) Random Glucose Calcium Phosphorus Magnesium Total Bilirubin AST ALT Alkaline Phosphatase Troponin I Total Protein Albumin Globulin Albumin/Globulin Ratio Procalcitonin < 0.05 L Venous Blood Potassium 06/27/17 06/27/17 12:00 12:00 WBC RBC Hgb Hct MCV MCH MCHC RDW Plt Count MPV Gran % Lymph % (Auto) [place] % (Auto) Eos % (Auto) Baso % (Auto) Gran # Lymph # [place] # Eos # Baso # PT INR APTT pO2 42 VBG pH 7.37 VBG pCO2 44.0 VBG HCO3 25.4 VBG Total CO2 26.8 VBG O2 Sat (Calc) 81.9 H VBG Base Excess -0.2 L VBG Potassium 3.8 Sodium 142.0 143 Chloride 109.0 H 107 Glucose 107 H Lactate 1.4 FiO2 21.0 Potassium 3.6 Carbon Dioxide 25 Anion Gap 15 BUN 16 Creatinine 1.0 Est GFR ( Amer) > 60 Est GFR (Non-Af Amer) 56 Random Glucose 109 Calcium 10.2 Phosphorus 3.4 Magnesium 1.7 Total Bilirubin 0.5 AST 28 ALT 18 Alkaline Phosphatase 95 Troponin I < 0.01 Total Protein 7.7 Albumin 3.9 Globulin 3.8 Albumin/Globulin Ratio 1.0 L Procalcitonin Venous Blood Potassium 3.8 Assessment & Plan - Assessment and Plan (Free Text) Plan: Assessment LEft inguinal area skin and skin structure infection associated with ovarian cancer metastasis history of chronic left leg ulcers, infected with Pseudomonas and Proteus mirabilis urinary bladder / urethral cancer ovarian cancer multiple sclerosis S/P pacemaker placement S/P right sided port-a-cath placement Plan started patient on Vancomycin and Merrem - for OR today and will follow up pathology and cultures will monitor clinically overall prognosis is poor
--- NOTE | 2017-06-28 20:27 | PN ---
SUBJECTIVE: Patient is 61 years old, seen and examined, lying in bed, seems to be comfortable, just came back from OR, had aspiration done, minimal 5 to 6 mL turbid fluid drained, no pus, after I discussed with Dr. Alexandra. PHYSICAL EXAMINATION GENERAL: She is awake, alert, oriented, communicative. VITAL SIGNS: She has temperature of 99.5, pulse 90, respirations 20, blood pressure 124/76. LUNGS: Bilateral fair airflow. No rhonchi or crackle. HEART: S1 and S2 audible. ABDOMEN: Soft. Nontender. No rebound. No guarding. NEUROLOGIC: The patient is awake, alert, oriented, communicative. Procalcitonin is 0.05. ASSESSMENT: 1. Metastatic ovarian cancer. 2. History of cancer of bladder, status post cystectomy and conduit formation. 3. Multiple sclerosis. 4. Status post left groin biopsy showing papillar ovarian cancer. 5. Pubic and inguinal cellulitis. 6. Left leg nonhealing ulcer. 7. Status post pacemaker placement. PLAN: Currently, patient is on vancomycin and meropenem. We will continue that. Analgesic as needed. Patient is on laxative to avoid constipation. Discontinue her fluid. We will follow up this patient in a.m. Kimberley Hernadez MD
--- NOTE | 2017-06-28 22:01 | OP ---
PROCEDURE DATE: 06/28/2017 LOCATION: Admitted on 06/27/2017 to room 368, bed 2. PREOPERATIVE DIAGNOSES: 1. Bilateral groin fluid collections. 2. Metastatic ovarian carcinoma. 3. Bladder carcinoma. 4. Pacemaker. POSTOPERATIVE DIAGNOSES: 1. Bilateral groin fluid collections. 2. Metastatic ovarian carcinoma. 3. Bladder carcinoma. 4. Pacemaker. PATHOLOGY: Pending. PROCEDURES: 1. On 06/28/2017 is incision and drainage of bilateral inguinal groin. 2. Debridement of bilateral inguinal groin region. SURGEON: uKmar Navarro M.D. SCHEDULER MAINTENANCE: Tam Kern DO, PGY1. TYPE OF ANESTHESIA: 1. Marcaine 0.5 - 10 mL. 2. MAC. ANESTHESIA ADMINISTERED BY: Itz Espinosa MD OPERATIVE INDICATIONS: The patient is a 61-year-old female with metastatic ovarian carcinoma to the bilateral inguinal lymph nodes that were removed 1 month earlier. There has been a fluid collection buildup and the patient has come to the emergency room with increasing pain, a mild left shift to her white blood count and a CAT scan demonstrating fluid and/or inflammation in both inguinal regions. It was discussed with the patient regarding drainage of same to relieve symptoms and she insisted on anesthesia or sedation. Risks, benefits and alternatives with their anticipated outcomes were discussed with the patient and she signed the informed consent. OPERATIVE NOTE: The patient was brought to the operating room, undergoes time-out procedure and was placed on the table in a supine, semi-Croft's position and undergoes MAC anesthesia sedation and oxygenation monitoring. The bilateral groins are prepped with Betadine and the patient is aseptically draped. Each incision was infiltrated with 0.5% bupivacaine and a blunt dissection was utilized to open the previous incision and it is carried on down to a significant depth of 5 to 6 cm, where fluid was evacuated and cultured aerobically and anaerobically marked for each side. Necrotic and/or fibrinous material was now removed and submitted separately marked left and right inguinal regions. The wounds were now lavaged, cleansed and packed with half-inch Iodoform gauze. Dry dressings were placed on both wounds and the patient was awakened and transported to the recovery room in a satisfactory condition. Sponge, instrument and suture count were verified as correct at the end of the procedure. Estimated blood loss during the procedure was less than 5 mL of blood. This dictation will be electronically signed without being read. The surgical dressing maker was present throughout from the beginning to end and was extremely valuable in assisting and draining and evacuating the solid material from the wound and packing the wounds. Kumar Navarro MD
--- NOTE | 2017-06-29 02:47 | CON ---
DATE OF EVALUATION: 06/28/2017 HISTORY OF PRESENT ILLNESS: Ms. Head is a 61-year-old female, presented to the office with lower abdominal pain. She has history of stage IV ovarian cancer, bladder cancer. She had inguinal lymph node biopsy done a week ago. She was found to have cellulitis in perineal area. She was referred to ER for admission. She was having fever, chills, nausea, and vomiting. She is currently getting IV antibiotics. PAST MEDICAL HISTORY: Bladder cancer, status post cystectomy; ovarian cancer, status post abdominal hysterectomy, oophorectomy; peptic ulcer disease; PEG tube placement for dysphagia; history of cardiomyopathy, and multiple sclerosis. ALLERGIES: NO KNOWN DRUG ALLERGIES. PERSONAL HISTORY: No history of smoking or alcohol abuse. SOCIAL HISTORY: She lives at home with her . REVIEW OF SYSTEMS: As per HPI. Rest of 12-point review of systems reviewed and negative. PHYSICAL EXAMINATION GENERAL: Awake, alert, and oriented, in no acute distress. VITAL SIGNS: Afebrile, temperature 98.7, heart rate 80 per minute, respiratory rate 18 per minute, and blood pressure 120/70. LUNGS: Air entry present and equal bilateral. No added sounds. CARDIOVASCULAR: S1 and S2 normal. No murmur. No gallop. ABDOMEN: Soft, nontender, ileal conduit draining clear urine. Cellulitis of the lower abdominal wall has markedly decreased. MANAGER CASE: Alert and oriented x3. No focal sensory or motor deficit. LABORATORY DATA: White count 8000, hemoglobin 11.4, hematocrit 34.9, and platelet 453. INR 1, sodium 143, potassium 3.6, chloride 107, BUN 16, and creatinine 1. Liver function is in normal limit. Blood culture and urine culture are negative. ASSESSMENT: 1. Lower abdominal wall cellulitis. 2. Ovarian cancer stage IV. 3. Bladder cancer. 4. Multiple sclerosis. PLAN: She is currently on IV antibiotics of meropenem and vancomycin. ID digital media sales consultant following. Dr. Navarro from Surgery following. CT of the abdomen and pelvis did not show any fluid collection. She underwent debridement of the pelvic abscess today in OR. Blood count showed mild anemia, hemoglobin 11.4, we will continue to monitor blood count. Renal functions have been normal. Coags are normal. She will need treatment for stage IV ovarian cancer. We will consider after she has recovered from current infection. Multiple sclerosis is stable. Thank you Dr. Hernadez for allowing us to participate in Ms. Head's care. Antonia Lake MD
[2017-06-29] MEDS: HYDROmorphone 0.5 mg/0.5 ml ISec IVP PRN ×4 (03:49→17:38)
[2017-06-29] MEDS: Vancomycin 1gm in NS 250ml 1 GM/250 ML BAG IVPB SCH ×2 (03:51→17:28)
[2017-06-29 06:33] LABS: HEMOGLOBIN 9.5 g/dL (12.0-16.0); MEAN CELL VOLUME 89.4 fl (80.0-105.0); MEAN CORPUSCULAR HEMOGLOBIN 28.8 pg (25.0-35.0); MEAN CORPUSCULAR HGB CONC 32.2 g/dl (31.0-37.0); RBC 3.3 10^6/uL (3.5-6.1); RED CELL DISTRIBUTION WIDTH 14.9 % (11.5-14.5); WHITE BLOOD COUNT 8.5 10^3/ul (4.5-11.0)
[2017-06-29 07:21] LABS: BLOOD UREA NITROGEN 9 mg/dL (7-21); CALCIUM 8.7 mg/dL (8.4-10.5); GFR AFRICAN-AMERICAN > 60; GFR NON-AFRICAN AMERICAN > 60
[2017-06-29] MEDS ORDERED: Potassium Chloride 20 mEq ER Tab PO ONE (08:31)
--- NOTE | 2017-06-29 09:38 | CP.PCM.PN ---
Subjective - Date & Time of Evaluation Date of Evaluation: 06/29/17 Time of Evaluation: 07:15 - Subjective Subjective: Surgery Progress note. Dr. Navarro Pt seen and examined at bedside. No acute events overnight. Denies any F/C. Still c/o some pain at inguinal site, tolerable. Left food dressing intact. No new complaints. Objective - Vital Signs/Intake and Output Vital Signs (last 24 hours): Temp Pulse Resp BP Pulse Ox 100.8 F H 104 H 20 122/68 97 06/29/17 08:24 06/29/17 08:24 06/29/17 08:24 06/29/17 08:24 06/29/17 08:24 Intake and Output: 06/29/17 06/29/17 06:59 18:59 Intake Total 900 Output Total 1800 Balance -900 - Medications Medications: Current Medications Acetaminophen (Tylenol 325mg Tab) 650 mg PO Q6H PRN PRN Reason: Fever >100.4 F Last Admin: 06/29/17 08:10 Dose: 650 mg Docusate Sodium (Colace) 200 mg PO DAILY [facility] Last Admin: 06/29/17 09:27 Dose: 200 mg Hydromorphone HCl (Dilaudid) 1 mg IVP Q4H PRN PRN Reason: Pain, severe (8-10) Last Admin: 06/29/17 08:10 Dose: 1 mg Vancomycin HCl (Vancomycin 1gm) 1 gm in 250 mls @ 167 mls/hr IVPB Q12H [facility] PRN Reason: Protocol Last Admin: 06/29/17 03:51 Dose: 167 mls/hr Meropenem 1 gm/ Sodium (Chloride) 50 mls @ 100 mls/hr IVPB Q12 [facility] Stop: 07/05/17 22:01 Last Admin: 06/29/17 09:26 Dose: 100 mls/hr Non-Formulary Medication (Glatiramer Acetate [Copaxone]) 40 mg SQ MWF [facility] Last Admin: 06/28/17 10:00 Dose: Not Given Oxycodone/Acetaminophen (Percocet 5/325 Mg Tab) 1 tab PO Q6H PRN PRN Reason: Pain, moderate (4-7) Stop: 07/01/17 11:18 Pregabalin (Lyrica) 100 mg PO BID [facility] Last Admin: 06/29/17 09:27 Dose: 100 mg Tizanidine HCl (Zanaflex) 4 mg PO HS [facility] Last Admin: 06/28/17 21:51 Dose: 4 mg - Labs Labs: 06/29/17 06:20 06/29/17 06:20 PT 12.0 SECONDS (9.4-12.5) 06/27/17 12:00 INR 1.09 (0.93-1.08) H 06/27/17 12:00 APTT 28.5 Seconds (25.1-36.5) 06/27/17 12:00 - Constitutional Appears: Well, Non-toxic, No Acute Distress - Head Exam Head Exam: ATRAUMATIC, NORMAL INSPECTION, NORMOCEPHALIC - Eye Exam Eye Exam: EOMI - ENT Exam ENT Exam: Mucous Membranes Moist - Respiratory Exam Respiratory Exam: Clear to Ausculation Bilateral - GI/Abdominal Exam GI & Abdominal Exam: Soft. absent: Guarding, Rigid, Tenderness, Diminished Bowel Sounds - Exam Additional comments: left inguinal wound - packing in place with 1/4in iodoform. minimal serrous drainage. Bandage replaced; clean, dry and intact. Right inguinal wound with packing in place with 1/4in iodoform. Minimal serrous drainage. Bandage replace clean dry and intact - Extremities Exam Additional comments: left le skin wounds with pink ulcer base. Dressing changed: clean, dry and intact - Neurological Exam Neurological Exam: Alert, Awake, Oriented x3 Assessment and Plan - Assessment and Plan (Free Text) Assessment: 61yo F with hx of metastatic disease. S/p I&D of bilateral inguinal abscesses on 06/28/16. - Will remove packing tomorrow. - Replace outer dressing as needed: Dry guaze - Left leg dressing replace as needed: Xeroform, kerlex wrap - Continue Abx as per ID - f/u wound cultures Further recs as per Dr. Ramon Kern PGY1 surgery pager: [phone]
--- NOTE | 2017-06-29 12:58 | CP.PCM.PN ---
Subjective - Date & Time of Evaluation Date of Evaluation: 06/29/17 Time of Evaluation: 11:25 - Subjective Subjective: Comfortable in bed, nhad low grade fevers overnight, still with pain in the groin areas. Objective - Vital Signs/Intake and Output Vital Signs (last 24 hours): Temp Pulse Resp BP Pulse Ox 98.6 F 104 H 20 122/68 97 06/29/17 09:52 06/29/17 08:24 06/29/17 08:24 06/29/17 08:24 06/29/17 08:24 Intake and Output: 06/29/17 06/29/17 06:59 18:59 Intake Total 900 Output Total 1800 Balance -900 - Medications Medications: Current Medications Acetaminophen (Tylenol 325mg Tab) 650 mg PO Q6H PRN PRN Reason: Fever >100.4 F Last Admin: 06/29/17 08:10 Dose: 650 mg Docusate Sodium (Colace) 200 mg PO DAILY [facility] Last Admin: 06/29/17 09:27 Dose: 200 mg Hydromorphone HCl (Dilaudid) 1 mg IVP Q4H PRN PRN Reason: Pain, severe (8-10) Last Admin: 06/29/17 08:10 Dose: 1 mg Vancomycin HCl (Vancomycin 1gm) 1 gm in 250 mls @ 167 mls/hr IVPB Q12H [facility] PRN Reason: Protocol Last Admin: 06/29/17 03:51 Dose: 167 mls/hr Meropenem 1 gm/ Sodium (Chloride) 50 mls @ 100 mls/hr IVPB Q12 [facility] Stop: 07/05/17 22:01 Last Admin: 06/29/17 09:26 Dose: 100 mls/hr Non-Formulary Medication (Glatiramer Acetate [Copaxone]) 40 mg SQ MWF [facility] Last Admin: 06/28/17 10:00 Dose: Not Given Oxycodone/Acetaminophen (Percocet 5/325 Mg Tab) 1 tab PO Q6H PRN PRN Reason: Pain, moderate (4-7) Stop: 07/01/17 11:18 Pregabalin (Lyrica) 100 mg PO BID [facility] Last Admin: 06/29/17 09:27 Dose: 100 mg Tizanidine HCl (Zanaflex) 4 mg PO HS [facility] Last Admin: 06/28/17 21:51 Dose: 4 mg - Labs Labs: 06/29/17 06:20 06/29/17 06:20 PT 12.0 SECONDS (9.4-12.5) 06/27/17 12:00 INR 1.09 (0.93-1.08) H 06/27/17 12:00 APTT 28.5 Seconds (25.1-36.5) 06/27/17 12:00 - Constitutional Appears: Non-toxic - Head Exam Head Exam: NORMAL INSPECTION - ENT Exam ENT Exam: Mucous Membranes Moist - Neck Exam Neck Exam: absent: Meningismus - Respiratory Exam Respiratory Exam: Decreased Breath Sounds - Cardiovascular Exam Cardiovascular Exam: +S1, +S2 - GI/Abdominal Exam GI & Abdominal Exam: Soft. absent: Tenderness Additional comments: groin areas with dressings in place Assessment and Plan - Assessment and Plan (Free Text) Plan: Assessment bilateral inguinal area skin and skin structure infection associated with ovarian cancer metastasis S/P I and D POD #1 history of chronic left leg ulcers, infected with Pseudomonas and Proteus mirabilis urinary bladder / urethral cancer ovarian cancer multiple sclerosis S/P pacemaker placement S/P right sided port-a-cath placement Plan continue Vancomycin and Merrem day 2 - follow up pathology and cultures will continue to monitor clinically overall prognosis is poor
[2017-06-29] MEDS ORDERED: Alum-Mag Hydrox-Simethicone Susp (30 mL) PO PRN (14:03)
[2017-06-29] MEDS ORDERED: Potassium Chloride 20 mEq/15 ml LIQ UD PO STA (14:26)
--- NOTE | 2017-06-29 19:26 | PN ---
DATE: 06/29/2017 SUBJECTIVE: The patient is 61 years old, seen and examined, lying in bed, seems to be comfortable, less pain in the perineal area, complained of constipation, eating and tolerating. PHYSICAL EXAMINATION: VITAL SIGNS: She is afebrile. Pulse 104, respirations 20, blood pressure 122/68. LUNGS: Bilateral good airflow. No rhonchi or crackles. HEENT: S1 and S2 audible. ABDOMEN: Soft. Ileal conduit in place, functioning, has clear urine. Perineal area has less induration, less erythema as compared to admission date. EXTREMITIES: Bilateral legs, no edema. LABORATORY DATA: WBC is 8.5, hemoglobin 9.5, hematocrit 29.5, platelet of 394. Chemistry: Sodium 141, potassium 3.5, chloride 112, CO2 of 24, BUN 9, creatinine 0.7, blood sugar of 94, ____ 0.05. ASSESSMENT: 1. Perineal cellulitis in the pubic area and previous left groin surgical site. 2. Metastatic ovarian carcinoma. 3. Status post cystectomy because of bladder carcinoma. 4. Metastatic ovarian carcinoma. 5. Constipation secondary to narcotics. PLAN: I will give one dose of Relistor. Continue on analgesics as needed. Supplement her potassium. Continue on meropenem. Kimberley Hernadez MD
[2017-06-29] MEDS: guaiFENesin DM 200 mg-20 mg/10 ml UD PO PRN (21:00)
[2017-06-30] MEDS: HYDROmorphone 0.5 mg/0.5 ml ISec IVP PRN ×5 (01:11→22:46)
[2017-06-30] MEDS: guaiFENesin DM 200 mg-20 mg/10 ml UD PO PRN ×2 (03:54→10:18)
[2017-06-30] MEDS: Vancomycin 1gm in NS 250ml 1 GM/250 ML BAG IVPB SCH ×2 (03:55→16:27)
[2017-06-30] MEDS: Pantoprazole 40 mg EC Tab PO SCH (06:01)
--- NOTE | 2017-06-30 09:48 | CP.PCM.PN ---
Subjective - Date & Time of Evaluation Date of Evaluation: 06/30/17 Time of Evaluation: 07:00 - Subjective Subjective: Surgery: Dr. Navarro Pt seen and examined. No acute events overnight. Pt complaining of a cough this morning but otherwise denies complaints. States she is eating but doesn't have much of an appetite. Denies N/V, F/C. Objective - Vital Signs/Intake and Output Vital Signs (last 24 hours): Temp Pulse Resp BP Pulse Ox 97.7 F 60 20 106/59 L 98 06/30/17 09:02 06/30/17 09:02 06/30/17 09:02 06/30/17 09:02 06/30/17 09:02 Intake and Output: 06/30/17 06/30/17 06:59 18:59 Intake Total 2160 Output Total 4550 700 Balance -2390 -700 - Medications Medications: Current Medications Acetaminophen (Tylenol 325mg Tab) 650 mg PO Q6H PRN PRN Reason: Fever >100.4 F Last Admin: 06/30/17 06:31 Dose: 650 mg Al Hydrox/Mg Hydrox/Simethicone (Maalox Plus 30 Ml) 30 ml PO DAILY PRN PRN Reason: Indigestion / Heartburn Last Admin: 06/29/17 14:23 Dose: 30 ml Docusate Sodium (Colace) 200 mg PO DAILY [facility] Last Admin: 06/29/17 09:27 Dose: 200 mg Guaifenesin/Dextromethorphan (Robitussin Dm) 5 ml PO Q6H PRN PRN Reason: Cough Last Admin: 06/30/17 03:54 Dose: 5 ml Hydromorphone HCl (Dilaudid) 1 mg IVP Q4H PRN PRN Reason: Pain, severe (8-10) Last Admin: 06/30/17 06:33 Dose: 1 mg Vancomycin HCl (Vancomycin 1gm) 1 gm in 250 mls @ 167 mls/hr IVPB Q12H [facility] PRN Reason: Protocol Last Admin: 06/30/17 03:55 Dose: 167 mls/hr Meropenem 1 gm/ Sodium (Chloride) 50 mls @ 100 mls/hr IVPB Q12 [facility] Stop: 07/05/17 22:01 Last Admin: 06/29/17 20:59 Dose: 100 mls/hr Non-Formulary Medication (Glatiramer Acetate [Copaxone]) 40 mg SQ MWF [facility] Last Admin: 06/28/17 10:00 Dose: Not Given Oxycodone/Acetaminophen (Percocet 5/325 Mg Tab) 1 tab PO Q6H PRN PRN Reason: Pain, moderate (4-7) Stop: 07/01/17 11:18 Last Admin: 06/29/17 21:01 Dose: 1 tab Pantoprazole Sodium (Protonix Ec Tab) 40 mg PO 0630 [facility] Last Admin: 06/30/17 06:01 Dose: 40 mg Pregabalin (Lyrica) 100 mg PO BID [facility] Last Admin: 06/29/17 17:38 Dose: 100 mg Tizanidine HCl (Zanaflex) 4 mg PO HS [facility] Last Admin: 06/29/17 21:00 Dose: 4 mg - Labs Labs: 06/29/17 06:20 06/29/17 06:20 PT 12.0 SECONDS (9.4-12.5) 06/27/17 12:00 INR 1.09 (0.93-1.08) H 06/27/17 12:00 APTT 28.5 Seconds (25.1-36.5) 06/27/17 12:00 - Constitutional Appears: Well, No Acute Distress - Head Exam Head Exam: ATRAUMATIC, NORMOCEPHALIC - Eye Exam Eye Exam: Normal appearance - ENT Exam ENT Exam: Mucous Membranes Moist - Respiratory Exam Respiratory Exam: NORMAL BREATHING PATTERN - Cardiovascular Exam Cardiovascular Exam: RRR - GI/Abdominal Exam GI & Abdominal Exam: Soft. absent: Tenderness - Exam Additional comments: b/l inguinal incisions C/D/I, erythema/edema still present around Mons pubis, tender to palpation. - Neurological Exam Neurological Exam: Alert, Awake, Oriented x3 - Skin Skin Exam: Dry, Intact, Warm Assessment and Plan - Assessment and Plan (Free Text) Assessment: 61F s/p b/l inguinal abscess I&D; POD#2 Plan: - packing removed - cont abx as per ID recs; no growth on prelim cultures from OR - no further surgical intervention at this time - d/w Dr. Ramon Barksdale, PGY-3 Surgery
[2017-06-30] MEDS ORDERED: Magnesium Citrate Oral SOL (300 ml) PO ONE (12:15)
[2017-06-30] MEDS: guaiFENesin DM 200 mg-20 mg/10 ml UD PO SCH ×2 (12:37→18:08)
--- NOTE | 2017-06-30 12:40 | CP.PCM.PN ---
Subjective - Date & Time of Evaluation Date of Evaluation: 06/30/17 Time of Evaluation: 11:30 - Subjective Subjective: Less pain in the groin but complaining of cough with pain in the upper back area , no fevers overnight. Objective - Vital Signs/Intake and Output Vital Signs (last 24 hours): Temp Pulse Resp BP Pulse Ox 97.7 F 60 20 106/59 L 98 06/30/17 09:02 06/30/17 09:02 06/30/17 09:02 06/30/17 09:02 06/30/17 09:02 Intake and Output: 06/30/17 06/30/17 06:59 18:59 Intake Total 2160 Output Total 4550 700 Balance -2390 -700 - Medications Medications: Current Medications Acetaminophen (Tylenol 325mg Tab) 650 mg PO Q6H PRN PRN Reason: Fever >100.4 F Last Admin: 06/30/17 06:31 Dose: 650 mg Al Hydrox/Mg Hydrox/Simethicone (Maalox Plus 30 Ml) 30 ml PO DAILY PRN PRN Reason: Indigestion / Heartburn Last Admin: 06/29/17 14:23 Dose: 30 ml Docusate Sodium (Colace) 200 mg PO DAILY [facility] Last Admin: 06/30/17 10:17 Dose: 200 mg Guaifenesin/Dextromethorphan (Robitussin Dm) 5 ml PO Q6H PRN PRN Reason: Cough Last Admin: 06/30/17 10:18 Dose: 5 ml Hydromorphone HCl (Dilaudid) 1 mg IVP Q4H PRN PRN Reason: Pain, severe (8-10) Last Admin: 06/30/17 10:24 Dose: 1 mg Vancomycin HCl (Vancomycin 1gm) 1 gm in 250 mls @ 167 mls/hr IVPB Q12H [facility] PRN Reason: Protocol Last Admin: 06/30/17 03:55 Dose: 167 mls/hr Meropenem 1 gm/ Sodium (Chloride) 50 mls @ 100 mls/hr IVPB Q12 [facility] Stop: 07/05/17 22:01 Last Admin: 06/29/17 20:59 Dose: 100 mls/hr Non-Formulary Medication (Glatiramer Acetate [Copaxone]) 40 mg SQ MWF [facility] Last Admin: 06/28/17 10:00 Dose: Not Given Oxycodone/Acetaminophen (Percocet 5/325 Mg Tab) 1 tab PO Q6H PRN PRN Reason: Pain, moderate (4-7) Stop: 07/01/17 11:18 Last Admin: 06/29/17 21:01 Dose: 1 tab Pantoprazole Sodium (Protonix Ec Tab) 40 mg PO 0630 [facility] Last Admin: 06/30/17 06:01 Dose: 40 mg Pregabalin (Lyrica) 100 mg PO BID [facility] Last Admin: 06/30/17 10:19 Dose: 100 mg Tizanidine HCl (Zanaflex) 4 mg PO HS [facility] Last Admin: 06/29/17 21:00 Dose: 4 mg - Labs Labs: 06/29/17 06:20 06/29/17 06:20 PT 12.0 SECONDS (9.4-12.5) 06/27/17 12:00 INR 1.09 (0.93-1.08) H 06/27/17 12:00 APTT 28.5 Seconds (25.1-36.5) 06/27/17 12:00 - Constitutional Appears: Chronically Ill - Head Exam Head Exam: NORMAL INSPECTION - ENT Exam ENT Exam: Mucous Membranes Moist - Neck Exam Neck Exam: absent: Meningismus - Respiratory Exam Respiratory Exam: Decreased Breath Sounds - Cardiovascular Exam Cardiovascular Exam: +S1, +S2 - GI/Abdominal Exam GI & Abdominal Exam: Soft. absent: Tenderness Assessment and Plan - Assessment and Plan (Free Text) Plan: Assessment bilateral inguinal area skin and skin structure infection associated with ovarian cancer metastasis S/P I and D POD #2 history of chronic left leg ulcers, infected with Pseudomonas and Proteus mirabilis urinary bladder / urethral cancer ovarian cancer multiple sclerosis S/P pacemaker placement S/P right sided port-a-cath placement Plan continue Vancomycin and Merrem day 3 - follow up pathology and cultures will get CXR because of cough will continue to monitor clinically overall prognosis is poor
[2017-06-30] MEDS: MethylPREDNISolone 40 mg Vial IV SCH ×2 (12:52→22:44)
[2017-06-30] MEDS: Levalbuterol 1.25 MG/3 ML Inhal Soln UD IH SCH ×2 (13:32→19:36)
--- NOTE | 2017-06-30 13:33 | RAD ---
HISTORY: rule out pneumonia, R/O thoracic vertebrae lesion COMPARISON: 06/27/2017 FINDINGS: LUNGS: No active pulmonary disease. PLEURA: No significant pleural effusion identified, no pneumothorax apparent. CARDIOVASCULAR: Mild vascular congestion. The heart is normal in size. Dual lead pacemaker and Port-A-Cath OSSEOUS STRUCTURES: No significant abnormalities. VISUALIZED UPPER ABDOMEN: Normal. OTHER FINDINGS: None. IMPRESSION: Mild vascular congestion
--- NOTE | 2017-06-30 13:50 | PN ---
DATE: SUBJECTIVE: The patient is a 61-year-old female, seen and examined. She complained of cough, congestion, shortness of breath, and wheezing. Her pubic area pain is improved. PHYSICAL EXAMINATION: VITAL SIGNS: She had temperature of 99, pulse of 60, respirations of 20, and blood pressure of 106/59. LUNGS: Bilateral exploratory rhonchi. HEART: S1 and S2, audible. ABDOMEN: Soft and nontender. No rebound and no guarding. NEUROLOGIC: The patient is awake, alert, oriented, and communicative. LABORATORY DATA: There is no new lab available today. ASSESSMENT AND PLAN: 1. Pubic area cellulitis, status post inguinal lymph node resection. 2. Metastatic ovarian cancer. 3. History of carcinoma of bladder, status post total cystectomy followed by ileal conduit formation. 4. Asthmatic bronchitis. PLAN: I will start patient on Xopenex. Start her on off medication and I will start her on Steroid also. I will continue all other medications. Dr. Eaton will follow up patient in a.m. If she is stable, we can be switched to p.o. antibiotic and sent home. I will also given her magnesium citrate, since she is complaining of constipation since she is admitted. Kimberley Hernadez MD
[2017-06-30] MEDS: GLATIRAMER ACETATE 40 MG SQ SCH (18:06)
[2017-07-01] MEDS: guaiFENesin DM 200 mg-20 mg/10 ml UD PO SCH ×4 (00:15→18:15)
[2017-07-01] MEDS: Vancomycin 1gm in NS 250ml 1 GM/250 ML BAG IVPB SCH ×2 (05:13→18:15)
[2017-07-01] MEDS: Pantoprazole 40 mg EC Tab PO SCH (05:33)
[2017-07-01] MEDS: HYDROmorphone 0.5 mg/0.5 ml ISec IVP PRN ×4 (08:12→21:24)
--- NOTE | 2017-07-01 09:40 | PN ---
DATE: SUBJECTIVE: The patient has no complaints of any chest pain or shortness of breath. She says she is feeling better. She is complaining of epigastric discomfort. She pointed to it with one finger, she says it is mild, it is about 3 to 4 out of 10. PHYSICAL EXAMINATION VITAL SIGNS: Temperature is 98.4, pulse of 115, blood pressure 132/76, respirations 18. GENERAL: The patient is lying in bed, flat, comfortable. HEENT: No oral lesion. Anicteric sclerae. Moist mucosa. NECK: No JVD, adenopathy, or thyromegaly. CARDIOVASCULAR: S1 and S2, regular. No murmurs, rubs, or gallops. LUNGS: Clear to auscultation bilaterally. No wheeze, rales, or rhonchi. ABDOMEN: Bowel sounds are positive, soft, nontender and nondistended. EXTREMITIES: No cyanosis, clubbing or edema. CHEST: There is a right Port-A-Cath. LABORATORY DATA: White count of 8.5 and hemoglobin 9.5. Potassium 3.5. ASSESSMENT: 1. Pubic area cellulitis. 2. Status post inguinal node resection. 3. History of metastatic ovarian cancer. 4. Carcinoma of the bladder, status post total cystectomy with ileal conduit. 5. Asthma. PLAN: The patient is going to be admitted, she is going to be on Lyrica for her neuropathy. She is on meropenem for antibiotics. The patient has Percocet for pain. I will renew her pain medications. She is going to continue with Dilaudid for pain as well. I will also renew these medications. She is on Solu-Medrol. She is going to continue on vancomycin for infection. Apparently, her infection is improving. She did have I and D done. The patient has a pacemaker and Port-A-Cath. She is being followed by Infectious Disease. She is interested in seeing GI for her epigastric discomfort. Ronal Eaton MD
[2017-07-01] MEDS: MethylPREDNISolone 40 mg Vial IV SCH ×2 (09:57→22:20)
[2017-07-01] MEDS ORDERED: Meropenem IV 1 gm in NS 50 ML IVPB SCH (10:00)
[2017-07-01] MEDS: Levalbuterol 1.25 MG/3 ML Inhal Soln UD IH SCH ×3 (10:53→20:08)
--- NOTE | 2017-07-01 12:56 | CP.PCM.PN ---
Subjective - Date & Time of Evaluation Date of Evaluation: 07/01/17 Time of Evaluation: 11:55 - Subjective Subjective: Less cough, less pain in the groin areas. No fevers overnight. Objective - Vital Signs/Intake and Output Vital Signs (last 24 hours): Temp Pulse Resp BP Pulse Ox 98.4 F 113 H 18 132/76 98 06/30/17 16:00 06/30/17 22:00 06/30/17 16:00 06/30/17 16:00 06/30/17 16:00 Intake and Output: 07/01/17 07/01/17 06:59 18:59 Intake Total 960 Output Total 1250 Balance -290 - Medications Medications: Current Medications Acetaminophen (Tylenol 325mg Tab) 650 mg PO Q6H PRN PRN Reason: Fever >100.4 F Last Admin: 06/30/17 06:31 Dose: 650 mg Al Hydrox/Mg Hydrox/Simethicone (Maalox Plus 30 Ml) 30 ml PO DAILY PRN PRN Reason: Indigestion / Heartburn Last Admin: 06/29/17 14:23 Dose: 30 ml Docusate Sodium (Colace) 200 mg PO DAILY [facility] Last Admin: 07/01/17 09:55 Dose: 200 mg Guaifenesin/Dextromethorphan (Robitussin Dm) 5 ml PO Q6H [facility] Last Admin: 07/01/17 05:14 Dose: 5 ml Hydromorphone HCl (Dilaudid) 1 mg IVP Q4H PRN PRN Reason: Pain, severe (8-10) Last Admin: 07/01/17 08:12 Dose: 1 mg Vancomycin HCl (Vancomycin 1gm) 1 gm in 250 mls @ 167 mls/hr IVPB Q12H [facility] PRN Reason: Protocol Last Admin: 07/01/17 05:13 Dose: 167 mls/hr Meropenem 1 gm/ Sodium (Chloride) 50 mls @ 100 mls/hr IVPB Q12 [facility] Stop: 07/05/17 10:01 Last Admin: 07/01/17 09:58 Dose: 100 mls/hr Levalbuterol HCl (Xopenex) 1.25 mg IH TID [facility] Last Admin: 06/30/17 19:36 Dose: 1.25 mg Methylprednisolone (Solu-Medrol) 40 mg IV Q12 [facility] Last Admin: 07/01/17 09:57 Dose: 40 mg Non-Formulary Medication (Glatiramer Acetate [Copaxone]) 40 mg SQ MWF [facility] Last Admin: 06/30/17 18:06 Dose: Not Given Oxycodone/Acetaminophen (Percocet 5/325 Mg Tab) 1 tab PO Q6H PRN PRN Reason: Pain, moderate (4-7) Stop: 07/01/17 11:18 Last Admin: 06/29/17 21:01 Dose: 1 tab Pantoprazole Sodium (Protonix Ec Tab) 40 mg PO 0630 [facility] Last Admin: 07/01/17 05:33 Dose: 40 mg Pregabalin (Lyrica) 100 mg PO BID [facility] Last Admin: 07/01/17 09:55 Dose: 100 mg Tizanidine HCl (Zanaflex) 4 mg PO HS [facility] Last Admin: 06/30/17 22:44 Dose: 4 mg - Labs Labs: 06/29/17 06:20 06/29/17 06:20 PT 12.0 SECONDS (9.4-12.5) 06/27/17 12:00 INR 1.09 (0.93-1.08) H 06/27/17 12:00 APTT 28.5 Seconds (25.1-36.5) 06/27/17 12:00 - Constitutional Appears: Chronically Ill - Head Exam Head Exam: NORMAL INSPECTION - Respiratory Exam Respiratory Exam: Decreased Breath Sounds - Cardiovascular Exam Cardiovascular Exam: +S1, +S2 - GI/Abdominal Exam GI & Abdominal Exam: Soft. absent: Tenderness Assessment and Plan - Assessment and Plan (Free Text) Plan: Assessment bilateral inguinal area skin and skin structure infection associated with ovarian cancer metastasis S/P I and D POD #3 history of chronic left leg ulcers, infected with Pseudomonas and Proteus mirabilis urinary bladder / urethral cancer ovarian cancer multiple sclerosis S/P pacemaker placement S/P right sided port-a-cath placement Plan continue Vancomycin and Merrem day 4 - follow up final pathology results and cultures will continue to monitor clinically overall prognosis is poor
[2017-07-02] MEDS: Levalbuterol 1.25 MG/3 ML Inhal Soln UD IH SCH ×4 (05:21→20:44)
[2017-07-02] MEDS: guaiFENesin DM 200 mg-20 mg/10 ml UD PO SCH ×5 (05:21→23:59)
[2017-07-02] MEDS: HYDROmorphone 0.5 mg/0.5 ml ISec IVP PRN ×4 (06:01→21:49)
[2017-07-02] MEDS: MethylPREDNISolone 40 mg Vial IVP SCH (09:20)
--- NOTE | 2017-07-02 11:51 | CP.PCM.PN ---
Subjective - Date & Time of Evaluation Date of Evaluation: 07/02/17 Time of Evaluation: 11:00 - Subjective Subjective: Comfortable in bed, no fevers. Objective - Vital Signs/Intake and Output Vital Signs (last 24 hours): Temp Pulse Resp BP Pulse Ox 98.3 F 93 H 20 138/98 H 95 07/02/17 06:00 07/02/17 06:00 07/02/17 06:00 07/02/17 06:00 07/02/17 06:00 Intake and Output: 07/02/17 07/02/17 06:59 18:59 Intake Total 0 Output Total 900 Balance -900 - Medications Medications: Current Medications Acetaminophen (Tylenol 325mg Tab) 650 mg PO Q6H PRN PRN Reason: Fever >100.4 F Last Admin: 06/30/17 06:31 Dose: 650 mg Al Hydrox/Mg Hydrox/Simethicone (Maalox Plus 30 Ml) 30 ml PO DAILY PRN PRN Reason: Indigestion / Heartburn Last Admin: 06/29/17 14:23 Dose: 30 ml Docusate Sodium (Colace) 200 mg PO DAILY [facility] Last Admin: 07/02/17 09:17 Dose: 200 mg Guaifenesin/Dextromethorphan (Robitussin Dm) 5 ml PO Q6H [facility] Last Admin: 07/02/17 05:21 Dose: 5 ml Hydromorphone HCl (Dilaudid) 1 mg IVP Q4H PRN PRN Reason: Pain, severe (8-10) Last Admin: 07/02/17 06:01 Dose: 1 mg Vancomycin HCl (Vancomycin 1gm) 1 gm in 250 mls @ 167 mls/hr IVPB Q12H [facility] PRN Reason: Protocol Last Admin: 07/01/17 18:15 Dose: 167 mls/hr Meropenem 1 gm/ Sodium (Chloride) 50 mls @ 100 mls/hr IVPB Q12 [facility] Stop: 07/05/17 10:01 Last Admin: 07/02/17 09:19 Dose: 100 mls/hr Levalbuterol HCl (Xopenex) 1.25 mg IH TID [facility] Last Admin: 07/02/17 05:21 Dose: 1.25 mg Methylprednisolone (Solu-Medrol) 40 mg IVP DAILY [facility] Last Admin: 07/02/17 09:20 Dose: 40 mg Non-Formulary Medication (Glatiramer Acetate [Copaxone]) 40 mg SQ MWF [facility] Last Admin: 06/30/17 18:06 Dose: Not Given Pantoprazole Sodium (Protonix Ec Tab) 40 mg PO 0630 [facility] Last Admin: 07/01/17 05:33 Dose: 40 mg Pregabalin (Lyrica) 100 mg PO BID [facility] Last Admin: 07/02/17 09:18 Dose: 100 mg Tizanidine HCl (Zanaflex) 4 mg PO HS [facility] Last Admin: 07/01/17 22:22 Dose: 4 mg - Labs Labs: 06/29/17 06:20 06/29/17 06:20 PT 12.0 SECONDS (9.4-12.5) 06/27/17 12:00 INR 1.09 (0.93-1.08) H 06/27/17 12:00 APTT 28.5 Seconds (25.1-36.5) 06/27/17 12:00 - Constitutional Appears: Non-toxic, Chronically Ill - Head Exam Head Exam: NORMAL INSPECTION - ENT Exam ENT Exam: Mucous Membranes Moist - Neck Exam Neck Exam: absent: Meningismus - Respiratory Exam Respiratory Exam: Decreased Breath Sounds - Cardiovascular Exam Cardiovascular Exam: +S1, +S2 - GI/Abdominal Exam GI & Abdominal Exam: Soft. absent: Tenderness Assessment and Plan - Assessment and Plan (Free Text) Plan: Assessment bilateral inguinal area skin and skin structure infection associated with ovarian cancer metastasis S/P I and D POD #4 history of chronic left leg ulcers, infected with Pseudomonas and Proteus mirabilis urinary bladder / urethral cancer ovarian cancer multiple sclerosis S/P pacemaker placement S/P right sided port-a-cath placement Plan continue Vancomycin and Merrem day 5 - pathology shows acute on chronic inflammation with abscess formation, cx only growing Corynebacterium which is contamination and should continue broad spectrum coverage to complete 7-10 days of therapy will continue to follow clinically overall prognosis is poor
--- NOTE | 2017-07-02 12:06 | PN ---
DATE: SUBJECTIVE: The patient has no complaints of any chest pain or shortness of breath. She says she had a good night yesterday and was able to sleep better. PHYSICAL EXAMINATION: VITAL SIGNS: Temperature is 98.3, pulse of 93, blood pressure is 133/87, respirations 19. GENERAL: The patient is lying in bed, flat, comfortable. HEENT: No oral lesion. Anicteric sclerae. Moist mucosa. NECK: No JVD, adenopathy, or thyromegaly. CARDIOVASCULAR: S1 and S2, regular. No murmurs, rubs, or gallops. LUNGS: Clear to auscultation bilaterally. No wheeze, rales, or rhonchi. ABDOMEN: Bowel sounds are positive, soft, nontender and nondistended. EXTREMITIES: No cyanosis, clubbing or edema. ASSESSMENT: 1. Pubic area cellulitis. 2. Status post inguinal node resection. 3. Carcinoma of the bladder, status post total cystectomy. 4. Asthma. 5. Chronic left leg ulcer pseudomonas and proteus. 6. Right-sided Port-A-Cath. 7. Pacemaker. PLAN: The patient is getting Dilaudid for pain. She is receiving meropenem for antibiotics. The patient is on steroids daily. I will decrease the patient's steroids. She is on Xopenex. She is receiving vancomycin for antibiotics. Abdominal ultrasound has been ordered. She has a heart healthy diet. Ronal Eaton MD
--- NOTE | 2017-07-02 16:15 | US ---
PROCEDURE: HISTORY: epigastric pain COMPARISON: TECHNIQUE: FINDINGS: The liver and spleen are normal in size. There is no biliary dilatation. The visualized pancreas are unremarkable. Gallstones are present. The aorta and IVC are unremarkable. The kidneys have a normal sonographic appearance. There is minimal perihepatic ascites. IMPRESSION: Minimal perihepatic ascites.
[2017-07-02] MEDS: Vancomycin 1gm in NS 250ml 1 GM/250 ML BAG IVPB SCH (17:17)
--- NOTE | 2017-07-02 22:29 | PN ---
DATE: 07/02/2017 SUBJECTIVE: This patient was seen and evaluated earlier. The patient is comfortable, has some mild abdominal discomfort still. PHYSICAL EXAMINATION: VITAL SIGNS: Temperature is 99.9, blood pressure 142/85, pulse 91, and O2 saturation is 99. HEENT: Atraumatic, anicteric. NECK: Supple. HEART: S1 and S2 heard. LUNGS: Bilateral air entry present. ABDOMEN: Soft. There is mild tenderness in the epigastric area. LABORATORY DATA: There is no labs today. IMPRESSION: An epigastric pain. Differential diagnoses should include peptic ulcer disease, cholelithiasis and also, reflux disease to be considered. The patient is already on a PPI. We will continue that. Requested for ultrasound scan of the abdomen which was viewed, minimal perihepatic ascites noticed. The patient also has gallstones. We will continue the PPI. The patient does have a history of metastatic ovarian carcinoma, history of bladder cancer status post hysterectomy. The patient was poor dentition, was not using dentures. The patient was advise to use it and also the diet was changed to soft diet. This patient was seen earlier yesterday and consult was not still seen in the [facility]. We will verify with the medical records. Thank you very much for allowing us to participate in the care of the patient. Demarco Russ MD [facility]
[2017-07-03] MEDS: Levalbuterol 1.25 MG/3 ML Inhal Soln UD IH SCH ×5 (02:25→19:08)
[2017-07-03] MEDS: guaiFENesin DM 200 mg-20 mg/10 ml UD PO SCH ×4 (03:45→17:14)
[2017-07-03] MEDS: HYDROmorphone 0.5 mg/0.5 ml ISec IVP PRN ×3 (03:45→18:54)
[2017-07-03] MEDS ORDERED: Albuterol-Ipratrop 3 mg / 0.5 (3 ml) UD IH STA (03:55)
[2017-07-03] MEDS ORDERED: Albuterol-Ipratrop 3 mg / 0.5 (3 ml) UD ONE (04:06)
[2017-07-03] MEDS: Vancomycin 1gm in NS 250ml 1 GM/250 ML BAG IVPB SCH (05:13)
--- NOTE | 2017-07-03 05:51 | CP.PCM.PN ---
Subjective - Date & Time of Evaluation Date of Evaluation: 07/03/17 Time of Evaluation: 03:55 - Subjective Subjective: called by nurse pt has coughing spell.pt has ovarian cancer and hx of asthma and chf, is coughing , has received zopenex treatment 10 minutes before. Objective - Vital Signs/Intake and Output Vital Signs (last 24 hours): Temp Pulse Resp BP Pulse Ox 98.5 F 93 H 20 138/84 97 07/03/17 05:00 07/03/17 05:00 07/03/17 05:00 07/03/17 05:00 07/03/17 05:00 Intake and Output: 07/02/17 07/03/17 18:59 06:59 Intake Total 0 240 Output Total 900 200 Balance -900 40 - Medications Medications: Current Medications Acetaminophen (Tylenol 325mg Tab) 650 mg PO Q6H PRN PRN Reason: Fever >100.4 F Last Admin: 06/30/17 06:31 Dose: 650 mg Al Hydrox/Mg Hydrox/Simethicone (Maalox Plus 30 Ml) 30 ml PO DAILY PRN PRN Reason: Indigestion / Heartburn Last Admin: 06/29/17 14:23 Dose: 30 ml Docusate Sodium (Colace) 200 mg PO DAILY [facility] Last Admin: 07/02/17 09:17 Dose: 200 mg Guaifenesin/Dextromethorphan (Robitussin Dm) 5 ml PO Q6H [facility] Last Admin: 07/03/17 03:45 Dose: 5 ml Hydromorphone HCl (Dilaudid) 1 mg IVP Q4H PRN PRN Reason: Pain, severe (8-10) Last Admin: 07/03/17 03:45 Dose: 1 mg Vancomycin HCl (Vancomycin 1gm) 1 gm in 250 mls @ 167 mls/hr IVPB Q12H [facility] PRN Reason: Protocol Last Admin: 07/03/17 05:13 Dose: 167 mls/hr Meropenem 1 gm/ Sodium (Chloride) 50 mls @ 100 mls/hr IVPB Q12 [facility] Stop: 07/05/17 10:01 Last Admin: 07/02/17 21:43 Dose: 100 mls/hr Levalbuterol HCl (Xopenex) 1.25 mg IH TID [facility] Last Admin: 07/03/17 02:25 Dose: 1.25 mg Methylprednisolone (Solu-Medrol) 40 mg IVP DAILY [facility] Last Admin: 07/02/17 09:20 Dose: 40 mg Non-Formulary Medication (Glatiramer Acetate [Copaxone]) 40 mg SQ MWF [facility] Last Admin: 06/30/17 18:06 Dose: Not Given Pantoprazole Sodium (Protonix Ec Tab) 40 mg PO 0630 [facility] Last Admin: 07/01/17 05:33 Dose: 40 mg Pregabalin (Lyrica) 100 mg PO BID [facility] Last Admin: 07/02/17 17:14 Dose: 100 mg Tizanidine HCl (Zanaflex) 4 mg PO HS [facility] Last Admin: 07/02/17 21:44 Dose: 4 mg - Labs Labs: 06/29/17 06:20 06/29/17 06:20 PT 12.0 SECONDS (9.4-12.5) 06/27/17 12:00 INR 1.09 (0.93-1.08) H 06/27/17 12:00 APTT 28.5 Seconds (25.1-36.5) 06/27/17 12:00 - Constitutional Appears: Other - Head Exam Head Exam: ATRAUMATIC - Eye Exam Eye Exam: PERRL Pupil Exam: PERRL - ENT Exam ENT Exam: Mucous Membranes Moist - Neck Exam Neck Exam: Full ROM - Respiratory Exam Respiratory Exam: Decreased Breath Sounds, Wheezes - Cardiovascular Exam Cardiovascular Exam: RRR, +S1, +S2 - GI/Abdominal Exam GI & Abdominal Exam: Soft - Rectal Exam Rectal Exam: Deferred - Extremities Exam Extremities Exam: Full ROM - Neurological Exam Neurological Exam: Alert, Awake, CN II-XII Intact, Oriented x3 - Psychiatric Exam Psychiatric exam: Anxious - Skin Skin Exam: Dry, Warm Assessment and Plan - Assessment and Plan (Free Text) Assessment: acute bronchospasm. hx of asthma. x of ovarian cancer. Plan: pt was given duonenbs x1 and pt improved.
[2017-07-03] MEDS: Pantoprazole 40 mg EC Tab PO SCH (06:32)
--- NOTE | 2017-07-03 07:59 | PN ---
DATE: 07/03/2017 SUBJECTIVE: The patient has no complaints of any chest pain. No shortness of breath. No headaches. PHYSICAL EXAMINATION: VITAL SIGNS: Temperature is 98.5, pulse of 93, blood pressure 138/84, respirations 20. GENERAL: The patient is lying in bed, flat, comfortable. HEENT: No oral lesion. Anicteric sclerae. Moist mucosa. NECK: No JVD, adenopathy, or thyromegaly. CARDIOVASCULAR: S1 and S2, regular. No murmurs, rubs, or gallops. LUNGS: Clear to auscultation bilaterally. No wheeze, rales, or rhonchi. ABDOMEN: Bowel sounds are positive, soft, nontender and nondistended. EXTREMITIES: No cyanosis, clubbing or edema. LABORATORY DATA: Abdominal ultrasounds shows minimal perihepatic ascites. There are gallstones that are present. ASSESSMENT: 1. Pubic area cellulitis. 2. Status post inguinal node resection. 3. Carcinoma of the bladder, status post cystectomy. 4. Asthma. 5. Chronic leg ulcer secondary to Pseudomonas and proteus. 6. Right-sided Port-A-Cath. 7. Pacemaker. PLAN: Events from overnight were reviewed from the house staff. The patient was given a DuoNeb treatment. The patient is being followed by Dr. Martell from [place]. The patient is on vancomycin and meropenem. She is day #6 of antibiotics. The patient will need at least 7 days of antibiotics. She is #6 out of 7 of her antibiotics. Ronal Eaton MD
--- NOTE | 2017-07-03 09:44 | CON ---
DATE: 07/01/2017 HISTORY OF PRESENT ILLNESS: This patient was seen and evaluated earlier today. The patient's son was at bedside. 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 The site of the left groin area appeared to have some discharge and admitted with the increasing pain and swelling in the pubic area and was admitted for treatment of the cellulitis with intravenous antibiotics regimen. The patient has been complaining of epigastric discomfort for the last 2 months intermittently, mainly in the localized to that area. No vomiting. No hematemesis. No recent change of bowel habits, otherwise. The patient remembers having had an endoscopy done more than 5 years ago. She does not remember the full details. The patient has been started on Protonix. Still the patient remains symptomatic, GI consult is requested to further evaluate this. OTHER PAST MEDICAL HISTORY: Significant as above. The patient has a history of PEG placement because of dysphagia which is now the patient is tolerating the diet. Cardiomyopathy, multiple sclerosis. ALLERGIES: THE PATIENT HAS NO KNOWN DRUG ALLERGIES. SOCIAL HISTORY: Denies smoking or alcohol. REVIEW OF SYSTEMS: Positive as above. Other system reviewed. The patient has a pain in the pubic area and also the left groin. PHYSICAL EXAMINATION GENERAL: The patient is comfortable. VITAL SIGNS: Temperature is 99.5, pulse 91, blood pressure 125/82 and respirations 19. HEENT: Atraumatic and anicteric. NECK: Supple. HEART: S1 and S2 heard. LUNGS: Bilateral air entry present. ABDOMEN: Soft. There is no tenderness. NEUROLOGIC: Alert and oriented. Moves all the extremities. LABORATORY DATA: Hemoglobin 9.5, hematocrit 29.5, WBC 8.5, and platelets 394. Chemistry done on 06/29/2017 at the same time; potassium 3.5, otherwise unremarkable. The CT scan done on admission was reviewed. There is fluid collection noticed in the left groin area. There is a large pelvic mass. IMPRESSION: Large pelvic mass. RECOMMENDATIONS: 1. The etiology for epigastric pain should include erosive esophagitis, gastroparesis, PUD and cholelithiasis also to be considered. The patient is edentulous with poor dentition. The patient is not wearing the dentures while eating. I had a detailed discussion withe patient. Th patient was advised to wear the dentures and eat and chew the food and eat small amounts frequently. 2. I also changed the diet to soft diet. 3. I would continue the Protonix. 4. The patient would benefit from the ultrasound scan of the abdomen which has been ordered. 5. We will continue to closely followup her care and suggest further management based on the clinical course. Demarco Russ MD [facility]
[2017-07-03] MEDS: MethylPREDNISolone 40 mg Vial IVP SCH (09:51)
[2017-07-03] MEDS: GLATIRAMER ACETATE 40 MG SQ SCH (09:52)
[2017-07-03 10:30] LABS: ALBUMIN 3.5 g/dL (3.0-4.8); ALT/SGPT 41 U/L (7-56); AST/SGOT 39 U/L (14-36); BLOOD UREA NITROGEN 15 mg/dL (7-21); CALCIUM 9.4 mg/dL (8.4-10.5); GFR AFRICAN-AMERICAN > 60; GFR NON-AFRICAN AMERICAN > 60
[2017-07-03] MEDS ORDERED: Potassium Chloride 20 mEq ER Tab PO ONE ×2 (11:21→18:00)
--- NOTE | 2017-07-03 11:36 | CP.PCM.PCO ---
Physician Communication Note - Physician Communication Note Physician Communication Note: Rx leg wounds/Vulvar edema/+gallstones:Low fat diet-HIDA Scan
[2017-07-03] MEDS: Clotrimazole/Betamethasone Lotion(30 ml) TOP SCH ×2 (13:28→17:11)
--- NOTE | 2017-07-03 17:38 | CP.PCM.PN ---
Subjective - Date & Time of Evaluation Date of Evaluation: 07/03/17 Time of Evaluation: 11:50 - Subjective Subjective: Comfortable, no fevers. Objective - Vital Signs/Intake and Output Vital Signs (last 24 hours): Temp Pulse Resp BP Pulse Ox 98.2 F 95 H 18 126/81 99 07/03/17 09:22 07/03/17 09:22 07/03/17 09:22 07/03/17 09:22 07/03/17 09:22 Intake and Output: 07/03/17 07/03/17 06:59 18:59 Intake Total 590 Output Total 2600 Balance -2009 - Medications Medications: Current Medications Acetaminophen (Tylenol 325mg Tab) 650 mg PO Q6H PRN PRN Reason: Fever >100.4 F Last Admin: 06/30/17 06:31 Dose: 650 mg Al Hydrox/Mg Hydrox/Simethicone (Maalox Plus 30 Ml) 30 ml PO DAILY PRN PRN Reason: Indigestion / Heartburn Last Admin: 06/29/17 14:23 Dose: 30 ml Docusate Sodium (Colace) 200 mg PO DAILY [facility] Last Admin: 07/02/17 09:17 Dose: 200 mg Guaifenesin/Dextromethorphan (Robitussin Dm) 5 ml PO Q6H [facility] Last Admin: 07/03/17 06:53 Dose: Not Given Hydromorphone HCl (Dilaudid) 1 mg IVP Q4H PRN PRN Reason: Pain, severe (8-10) Last Admin: 07/03/17 03:45 Dose: 1 mg Vancomycin HCl (Vancomycin 1gm) 1 gm in 250 mls @ 167 mls/hr IVPB Q12H [facility] PRN Reason: Protocol Last Admin: 07/03/17 05:13 Dose: 167 mls/hr Meropenem 1 gm/ Sodium (Chloride) 50 mls @ 100 mls/hr IVPB Q12 [facility] Stop: 07/05/17 10:01 Last Admin: 07/02/17 21:43 Dose: 100 mls/hr Levalbuterol HCl (Xopenex) 1.25 mg IH TID [facility] Last Admin: 07/03/17 08:10 Dose: 1.25 mg Methylprednisolone (Solu-Medrol) 40 mg IVP DAILY [facility] Last Admin: 07/02/17 09:20 Dose: 40 mg Non-Formulary Medication (Glatiramer Acetate [Copaxone]) 40 mg SQ MWF [facility] Last Admin: 06/30/17 18:06 Dose: Not Given Pantoprazole Sodium (Protonix Ec Tab) 40 mg PO 0630 [facility] Last Admin: 07/03/17 06:32 Dose: 40 mg Pregabalin (Lyrica) 100 mg PO BID [facility] Last Admin: 07/02/17 17:14 Dose: 100 mg Tizanidine HCl (Zanaflex) 4 mg PO HS [facility] Last Admin: 07/02/17 21:44 Dose: 4 mg - Labs Labs: 06/29/17 06:20 06/29/17 06:20 PT 12.0 SECONDS (9.4-12.5) 06/27/17 12:00 INR 1.09 (0.93-1.08) H 06/27/17 12:00 APTT 28.5 Seconds (25.1-36.5) 06/27/17 12:00 - Constitutional Appears: Chronically Ill - Head Exam Head Exam: NORMAL INSPECTION - ENT Exam ENT Exam: Mucous Membranes Moist - Respiratory Exam Respiratory Exam: Decreased Breath Sounds - Cardiovascular Exam Cardiovascular Exam: +S1, +S2 - GI/Abdominal Exam GI & Abdominal Exam: Soft. absent: Tenderness Assessment and Plan - Assessment and Plan (Free Text) Plan: Assessment bilateral inguinal area skin and skin structure infection associated with ovarian cancer metastasis S/P I and D POD #5 history of chronic left leg ulcers, infected with Pseudomonas and Proteus mirabilis urinary bladder / urethral cancer ovarian cancer multiple sclerosis S/P pacemaker placement S/P right sided port-a-cath placement Plan continue Vancomycin and Merrem day 6 - pathology shows acute on chronic inflammation with abscess formation, cx only growing Corynebacterium which is contamination and should continue broad spectrum coverage to complete 7-10 days of therapy will continue to follow clinically overall prognosis is poor
[2017-07-04] MEDS: guaiFENesin DM 200 mg-20 mg/10 ml UD PO SCH ×4 (00:18→17:15)
--- NOTE | 2017-07-04 00:46 | PN ---
DATE: 07/03/2017 SUBJECTIVE: This patient was seen and evaluated earlier today. The patient still complains of some epigastric discomfort. PHYSICAL EXAMINATION: VITAL SIGNS: Temperature is 98.4, pulse is 97, and blood pressure is 125/84. HEENT: Atraumatic and anicteric. NECK: Supple. HEART: S1 and S2 heard. LUNGS: Bilateral air entry present. ABDOMEN: Soft. There is mild tenderness present in the epigastric area. LABORATORY DATA: Sodium 145, potassium is 3.0, BUN 15, and creatinine 0.8. IMPRESSION AND PLAN: This is a 62 year-old patient with ovarian cancer, metastatic; history of bladder cancer, status post hysterectomy with an ileal conduit; and has an epigastric discomfort. The patient has a poor dentition and does not chew the food well, partly it could be related to bezoar, could be the cause for this pain. In addition, this patient may be having reflux disease. Other differential diagnosis include neoplasia. The ultrasound scan of the abdomen also shows gallstones with normal common bile duct. It appears to be incidental finding rather than the etiology, this is an etiology for her abdominal pain. We would recommend at this point is: 1. Clinical followup, soft diet, and the patient was advised to chew the food well or the pureed diet. 2. Continue the antibiotic present treatment. 3. We will continue the PPI. 4. The patient was advised to use the soft food and chew it well. 5. If the patient still remains symptomatic, we will consider upper GI endoscopy. Thank you very much for allowing us to participate in the care of the patient. Demarco Russ MD [facility]
[2017-07-04] MEDS: HYDROmorphone 0.5 mg/0.5 ml ISec IVP PRN ×3 (03:15→21:51)
[2017-07-04] MEDS: Vancomycin 1gm in NS 250ml 1 GM/250 ML BAG IVPB SCH ×2 (05:44→17:10)
[2017-07-04] MEDS: Pantoprazole 40 mg EC Tab PO SCH (05:44)
[2017-07-04] MEDS: Levalbuterol 1.25 MG/3 ML Inhal Soln UD IH SCH ×2 (08:30→21:16)
--- NOTE | 2017-07-04 11:15 | NM ---
PROCEDURE: Nuclear Medicine Hepatobiliary Scan HISTORY: r/o cystic duct obstruction COMPARISON: None available. TECHNIQUE: 5.2 mCi of technetium 99m Mebrofenin was administered intravenously. Planar images of the abdomen were obtained at 5 min intervals to 60 mins. Delayed images were also obtained. FINDINGS: LIVER: Timely and homogenous uptake. COMMON BILE DUCT: identified at 5 mins. GALLBLADDER: identified at 15 mins. SMALL BOWEL: Identified at 15 mins. IMPRESSION: Normal Hepatobiliary Scan. The cystic duct is patent.
[2017-07-04] MEDS: Clotrimazole/Betamethasone Lotion(30 ml) TOP SCH ×2 (11:19→17:11)
[2017-07-04] MEDS: MethylPREDNISolone 40 mg Vial IVP SCH (11:27)
--- NOTE | 2017-07-04 12:39 | CP.PCM.PN ---
<Annie Layton - Last Filed: 07/04/17 12:38> Subjective - Date & Time of Evaluation Date of Evaluation: 07/04/17 Time of Evaluation: 10:35 - Subjective Subjective: Seen and examined at the bedside late this morning, patient complains of pain in the epigastric right upper quadrant area she went for a HIDA scan this morning and that was negative for cystic duct obstruction. No reports of nausea or vomiting, fever or chills. Objective - Vital Signs/Intake and Output Vital Signs (last 24 hours): Temp Pulse Resp BP Pulse Ox 98 F 91 H 20 118/83 95 07/04/17 08:02 07/04/17 08:02 07/04/17 08:02 07/04/17 08:02 07/04/17 08:02 Intake and Output: 07/04/17 07/04/17 06:59 18:59 Intake Total 540 Output Total 700 Balance -160 - Medications Medications: Current Medications Acetaminophen (Tylenol 325mg Tab) 650 mg PO Q6H PRN PRN Reason: Fever >100.4 F Last Admin: 06/30/17 06:31 Dose: 650 mg Al Hydrox/Mg Hydrox/Simethicone (Maalox Plus 30 Ml) 30 ml PO DAILY PRN PRN Reason: Indigestion / Heartburn Last Admin: 06/29/17 14:23 Dose: 30 ml Betamethasone/Clotrimazole (Lotrisone) 0 ml TOP BID [facility] Last Admin: 07/04/17 11:19 Dose: 1 applic Docusate Sodium (Colace) 200 mg PO DAILY [facility] Last Admin: 07/04/17 11:19 Dose: 200 mg Guaifenesin/Dextromethorphan (Robitussin Dm) 5 ml PO Q6H [facility] Last Admin: 07/04/17 06:44 Dose: Not Given Hydromorphone HCl (Dilaudid) 1 mg IVP Q4H PRN PRN Reason: Pain, severe (8-10) Last Admin: 07/04/17 03:15 Dose: 1 mg Vancomycin HCl (Vancomycin 1gm) 1 gm in 250 mls @ 167 mls/hr IVPB Q12H [facility] PRN Reason: Protocol Last Admin: 07/04/17 05:44 Dose: 167 mls/hr Meropenem 1 gm/ Sodium (Chloride) 50 mls @ 100 mls/hr IVPB Q12 [facility] Stop: 07/05/17 10:01 Last Admin: 07/04/17 11:20 Dose: 100 mls/hr Levalbuterol HCl (Xopenex) 1.25 mg IH TID [facility] Last Admin: 07/04/17 08:30 Dose: 1.25 mg Methylprednisolone (Solu-Medrol) 40 mg IVP DAILY [facility] Last Admin: 07/04/17 11:27 Dose: 40 mg Mupirocin (Bactroban Ointment) 0 gm TOP DAILY [facility] Last Admin: 07/04/17 11:34 Dose: 1 applic Non-Formulary Medication (Glatiramer Acetate [Copaxone]) 40 mg SQ MWF [facility] Last Admin: 07/03/17 09:52 Dose: Not Given Pantoprazole Sodium (Protonix Ec Tab) 40 mg PO 0630 [facility] Last Admin: 07/04/17 05:44 Dose: 40 mg Pregabalin (Lyrica) 100 mg PO BID [facility] Last Admin: 07/04/17 11:19 Dose: 100 mg Tizanidine HCl (Zanaflex) 4 mg PO HS [facility] Last Admin: 07/03/17 21:23 Dose: 4 mg - Labs Labs: 06/29/17 06:20 07/03/17 10:10 PT 12.0 SECONDS (9.4-12.5) 06/27/17 12:00 INR 1.09 (0.93-1.08) H 06/27/17 12:00 APTT 28.5 Seconds (25.1-36.5) 06/27/17 12:00 - Constitutional Appears: No Acute Distress - Head Exam Head Exam: NORMOCEPHALIC - Eye Exam Eye Exam: Normal appearance. absent: Scleral icterus - ENT Exam ENT Exam: Mucous Membranes Moist - Respiratory Exam Respiratory Exam: NORMAL BREATHING PATTERN. absent: Respiratory Distress - Cardiovascular Exam Cardiovascular Exam: +S1, +S2 - GI/Abdominal Exam GI & Abdominal Exam: Soft, Tenderness (epigastric/right upper quadrant), Normal Bowel Sounds. absent: Guarding, Organomegaly, Rebound - Extremities Exam Extremities Exam: absent: Calf Tenderness - Neurological Exam Neurological Exam: Alert, Awake, Oriented x3 Assessment and Plan - Assessment and Plan (Free Text) Assessment: Assessment: Abdominal pain, status post abdominal ultrasound positive for gallstones with normal common bile duct, status post HIDA scan negative for cystic duct obstruction, differentials to consider could be a bezoar, reflux disease Metastatic ovarian cancer History of bladder cancer History of hysterectomy with ileal conduit Plan: Continue PPI On IV antibiotics Recommend soft food and chew food well or consider pure diet On stool softeners Consider endoscopy if remains symptomatic surgery following Seen and discussed with Dr. Russ. <Demarco Russ V - Last Filed: 07/04/17 19:56> Objective - Vital Signs/Intake and Output Vital Signs (last 24 hours): Temp Pulse Resp BP Pulse Ox 97.9 F 104 H 19 140/94 H 96 07/04/17 16:00 07/04/17 16:00 07/04/17 16:00 07/04/17 16:00 07/04/17 16:00 Intake and Output: 07/04/17 07/05/17 18:59 06:59 Intake Total 480 Output Total 400 Balance 80 - Medications Medications: Current Medications Acetaminophen (Tylenol 325mg Tab) 650 mg PO Q6H PRN PRN Reason: Fever >100.4 F Last Admin: 06/30/17 06:31 Dose: 650 mg Al Hydrox/Mg Hydrox/Simethicone (Maalox Plus 30 Ml) 30 ml PO DAILY PRN PRN Reason: Indigestion / Heartburn Last Admin: 06/29/17 14:23 Dose: 30 ml Betamethasone/Clotrimazole (Lotrisone) 0 ml TOP BID [facility] Last Admin: 07/04/17 17:11 Dose: 1 applic Docusate Sodium (Colace) 200 mg PO DAILY [facility] Last Admin: 07/04/17 11:19 Dose: 200 mg Guaifenesin/Dextromethorphan (Robitussin Dm) 5 ml PO Q6H [facility] Last Admin: 07/04/17 17:15 Dose: 5 ml Hydromorphone HCl (Dilaudid) 1 mg IVP Q4H PRN PRN Reason: Pain, severe (8-10) Last Admin: 07/04/17 17:20 Dose: 1 mg Vancomycin HCl (Vancomycin 1gm) 1 gm in 250 mls @ 167 mls/hr IVPB Q12H [facility] PRN Reason: Protocol Last Admin: 07/04/17 17:10 Dose: 167 mls/hr Meropenem 1 gm/ Sodium (Chloride) 50 mls @ 100 mls/hr IVPB Q12 [facility] Stop: 07/05/17 10:01 Last Admin: 07/04/17 11:20 Dose: 100 mls/hr Levalbuterol HCl (Xopenex) 1.25 mg IH TID [facility] Last Admin: 07/04/17 08:30 Dose: 1.25 mg Methylprednisolone (Solu-Medrol) 40 mg IVP DAILY [facility] Last Admin: 07/04/17 11:27 Dose: 40 mg Mupirocin (Bactroban Ointment) 0 gm TOP DAILY [facility] Last Admin: 07/04/17 11:34 Dose: 1 applic Non-Formulary Medication (Glatiramer Acetate [Copaxone]) 40 mg SQ MWF [facility] Last Admin: 07/03/17 09:52 Dose: Not Given Pantoprazole Sodium (Protonix Ec Tab) 40 mg PO 0630 [facility] Last Admin: 07/04/17 05:44 Dose: 40 mg Pregabalin (Lyrica) 100 mg PO BID [facility] Last Admin: 07/04/17 17:04 Dose: 100 mg Tizanidine HCl (Zanaflex) 4 mg PO HS [facility] Last Admin: 07/03/17 21:23 Dose: 4 mg - Labs Labs: 06/29/17 06:20 07/03/17 10:10 PT 12.0 SECONDS (9.4-12.5) 06/27/17 12:00 INR 1.09 (0.93-1.08) H 06/27/17 12:00 APTT 28.5 Seconds (25.1-36.5) 06/27/17 12:00 Attending/Attestation - Attestation I have personally seen and examined this patient.: Yes I have fully participated in the care of the patient.: Yes I have reviewed all pertinent clinical information, including history, physical exam and plan: Yes Notes (Text): This is an addendum to GI progress report dictated by Annie Layton APN.The patient was seen and examined earlier. Medical records, lab studies, imagings were reviewed. Last 24 hours events reviewed. Agreed with the above treatment plan as outlined in Annie Layton APN's notes the with the addition of the following still complains of epigastric pain On examination mild tenderness present to the epigastric area Patient is already on PPI history of gallstones HIDA negative Schedule for EGD tomorrow 07/04/17 19:55
--- NOTE | 2017-07-04 13:12 | CP.PCM.PN ---
Subjective - Date & Time of Evaluation Date of Evaluation: 07/04/17 Time of Evaluation: 09:20 - Subjective Subjective: Has occasional pain in the epigastric and right upper quadrant area, no fevers overnight, not in distress. Objective - Vital Signs/Intake and Output Vital Signs (last 24 hours): Temp Pulse Resp BP Pulse Ox 98 F 91 H 20 118/83 95 07/04/17 08:02 07/04/17 08:02 07/04/17 08:02 07/04/17 08:02 07/04/17 08:02 Intake and Output: 07/04/17 07/04/17 06:59 18:59 Intake Total 540 Output Total 700 Balance -160 - Medications Medications: Current Medications Acetaminophen (Tylenol 325mg Tab) 650 mg PO Q6H PRN PRN Reason: Fever >100.4 F Last Admin: 06/30/17 06:31 Dose: 650 mg Al Hydrox/Mg Hydrox/Simethicone (Maalox Plus 30 Ml) 30 ml PO DAILY PRN PRN Reason: Indigestion / Heartburn Last Admin: 06/29/17 14:23 Dose: 30 ml Betamethasone/Clotrimazole (Lotrisone) 0 ml TOP BID [facility] Last Admin: 07/03/17 17:11 Dose: 1 applic Docusate Sodium (Colace) 200 mg PO DAILY [facility] Last Admin: 07/03/17 09:50 Dose: 200 mg Guaifenesin/Dextromethorphan (Robitussin Dm) 5 ml PO Q6H [facility] Last Admin: 07/04/17 06:44 Dose: Not Given Hydromorphone HCl (Dilaudid) 1 mg IVP Q4H PRN PRN Reason: Pain, severe (8-10) Last Admin: 07/04/17 03:15 Dose: 1 mg Vancomycin HCl (Vancomycin 1gm) 1 gm in 250 mls @ 167 mls/hr IVPB Q12H [facility] PRN Reason: Protocol Last Admin: 07/04/17 05:44 Dose: 167 mls/hr Meropenem 1 gm/ Sodium (Chloride) 50 mls @ 100 mls/hr IVPB Q12 [facility] Stop: 07/05/17 10:01 Last Admin: 07/03/17 21:22 Dose: 100 mls/hr Levalbuterol HCl (Xopenex) 1.25 mg IH TID [facility] Last Admin: 07/04/17 08:30 Dose: 1.25 mg Methylprednisolone (Solu-Medrol) 40 mg IVP DAILY [facility] Last Admin: 07/03/17 09:51 Dose: 40 mg Mupirocin (Bactroban Ointment) 0 gm TOP DAILY [facility] Last Admin: 07/03/17 13:28 Dose: 1 applic Non-Formulary Medication (Glatiramer Acetate [Copaxone]) 40 mg SQ MWF [facility] Last Admin: 07/03/17 09:52 Dose: Not Given Pantoprazole Sodium (Protonix Ec Tab) 40 mg PO 0630 [facility] Last Admin: 07/04/17 05:44 Dose: 40 mg Pregabalin (Lyrica) 100 mg PO BID [facility] Last Admin: 07/03/17 17:11 Dose: 100 mg Tizanidine HCl (Zanaflex) 4 mg PO HS [facility] Last Admin: 07/03/17 21:23 Dose: 4 mg - Labs Labs: 06/29/17 06:20 07/03/17 10:10 PT 12.0 SECONDS (9.4-12.5) 06/27/17 12:00 INR 1.09 (0.93-1.08) H 06/27/17 12:00 APTT 28.5 Seconds (25.1-36.5) 06/27/17 12:00 - Constitutional Appears: Non-toxic, Chronically Ill - Head Exam Head Exam: NORMAL INSPECTION - ENT Exam ENT Exam: Mucous Membranes Moist - Neck Exam Neck Exam: absent: Meningismus - Respiratory Exam Respiratory Exam: Decreased Breath Sounds - Cardiovascular Exam Cardiovascular Exam: +S1, +S2 - GI/Abdominal Exam GI & Abdominal Exam: Soft. absent: Tenderness Assessment and Plan - Assessment and Plan (Free Text) Plan: Assessment bilateral inguinal area skin and skin structure infection associated with ovarian cancer metastasis S/P I and D POD #6 RUQ pain R/O cholecystitis history of chronic left leg ulcers, infected with Pseudomonas and Proteus mirabilis urinary bladder / urethral cancer ovarian cancer multiple sclerosis S/P pacemaker placement S/P right sided port-a-cath placement Plan continue Vancomycin and Merrem day 7 - pathology shows acute on chronic inflammation with abscess formation, cx only growing Corynebacterium which is contamination and should continue broad spectrum coverage to complete 7-10 days of therapy follow up MARYA scan results will continue to follow clinically overall prognosis is poor
--- NOTE | 2017-07-05 00:14 | PN ---
DATE: 07/04/2017 SUBJECTIVE: The patient has no complaints of any chest pain, shortness of breath, or headache. PHYSICAL EXAMINATION VITAL SIGNS: Temperature is 97.9, pulse of 104, blood pressure 140/94, respiration is 19. GENERAL: The patient is lying in bed, flat, comfortable. HEENT: No oral lesion. Anicteric sclerae. Moist mucosa. NECK: No JVD, adenopathy, or thyromegaly. CARDIOVASCULAR: S1 and S2, regular. No murmurs, rubs, or gallops. LUNGS: Clear to auscultation bilaterally. No wheeze, rales, or rhonchi. ABDOMEN: Bowel sounds are positive, soft, nontender and nondistended. EXTREMITIES: no cyanosis, clubbing or edema. ____ 00:34 is normal. The cystic duct is patent. ASSESSMENT: 1. Hypokalemia. 2. Pubic area cellulitis. 3. Status post inguinal node resection. The patient is on vanco and Merrem, day #7. 4. Carcinoma of the bladder, status post cystectomy. 5. Asthma. 6. Edema of the colovaginal area. 7. Chronic leg ulcer secondary to Pseudomonas and Proteus. 8. Right-sided Port-A-Cath. 9. Pacemaker. PLAN: The patient is currently comfortable. She is on Dilaudid for pain. We will continue her pain medications. She is receiving Colace for constipation. The patient is on Lyrica for her neuropathy. She is on steroids, Solu-Medrol. She is receiving vancomycin for IV antibiotics. Ronal Eaton MD
[2017-07-05] MEDS: guaiFENesin DM 200 mg-20 mg/10 ml UD PO SCH ×3 (01:42→13:59)
[2017-07-05] MEDS ORDERED: MethylPREDNISolone 40 mg Vial IVP SCH (06:02)
[2017-07-05] MEDS: HYDROmorphone 2 mg/ml ISec IVP PRN ×2 (06:10→10:50)
[2017-07-05] MEDS: Pantoprazole 40 mg EC Tab PO SCH (06:11)
[2017-07-05] MEDS: Vancomycin 1gm in NS 250ml 1 GM/250 ML BAG IVPB SCH ×2 (06:11→16:00)
[2017-07-05] MEDS: Levalbuterol 1.25 MG/3 ML Inhal Soln UD IH SCH ×2 (07:31→13:58)
[2017-07-05] MEDS ORDERED: Potassium Chloride 20 mEq ER Tab PO ONE (07:42)
[2017-07-05 09:59] VITALS: TEMP 97.2
[2017-07-05] MEDS: Clotrimazole/Betamethasone Lotion(30 ml) TOP SCH ×2 (10:09→17:58)
[2017-07-05] MEDS: GLATIRAMER ACETATE 40 MG SQ SCH (10:14)
[2017-07-05] MEDS ORDERED: DiphenhydrAMINE 50 mg/ml Inj IVP ONE (11:42)
[2017-07-05] MEDS ORDERED: Lidocaine 2% Inj (20ml) ONE (15:32)
[2017-07-05] MEDS ORDERED: Propofol 10 mg/ml Inj (20 ML) ONE (15:32)
[2017-07-05] MEDS ORDERED: Sodium Chloride 0.9% 1,000 ML IV SCH (16:00)
[2017-07-05 16:14] VITALS: O2SAT 99
[2017-07-05 16:37] VITALS: BP 121/77; PULSE 83; RESP 16
--- NOTE | 2017-07-05 16:45 | CP.PCM.PN ---
Subjective - Date & Time of Evaluation Date of Evaluation: 07/05/17 Time of Evaluation: 10:10 - Subjective Subjective: Comfortable, no fevers, not in distress. Objective - Vital Signs/Intake and Output Vital Signs (last 24 hours): Temp Pulse Resp BP Pulse Ox 97.9 F 104 H 19 140/94 H 96 07/04/17 16:00 07/04/17 16:00 07/04/17 16:00 07/04/17 16:00 07/04/17 16:00 Intake and Output: 07/05/17 07/05/17 06:59 18:59 Intake Total 520 Balance 520 - Medications Medications: Current Medications Acetaminophen (Tylenol 325mg Tab) 650 mg PO Q6H PRN PRN Reason: Fever >100.4 F Last Admin: 06/30/17 06:31 Dose: 650 mg Al Hydrox/Mg Hydrox/Simethicone (Maalox Plus 30 Ml) 30 ml PO DAILY PRN PRN Reason: Indigestion / Heartburn Last Admin: 06/29/17 14:23 Dose: 30 ml Betamethasone/Clotrimazole (Lotrisone) 0 ml TOP BID [facility] Last Admin: 07/04/17 17:11 Dose: 1 applic Docusate Sodium (Colace) 200 mg PO DAILY [facility] Last Admin: 07/04/17 11:19 Dose: 200 mg Guaifenesin/Dextromethorphan (Robitussin Dm) 5 ml PO Q6H [facility] Last Admin: 07/05/17 06:11 Dose: 5 ml Hydromorphone HCl (Dilaudid) 1 mg IVP Q4H PRN PRN Reason: Pain, severe (8-10) Last Admin: 07/05/17 06:10 Dose: 1 mg Vancomycin HCl (Vancomycin 1gm) 1 gm in 250 mls @ 167 mls/hr IVPB Q12H [facility] PRN Reason: Protocol Last Admin: 07/05/17 06:11 Dose: 167 mls/hr Meropenem 1 gm/ Sodium (Chloride) 50 mls @ 100 mls/hr IVPB Q12 [facility] Stop: 07/05/17 10:01 Last Admin: 07/04/17 21:41 Dose: 100 mls/hr Potassium Chloride (Potassium Chloride 10 Meq/100 Ml) 10 meq in 100 mls @ 50 mls/hr IVPB Q2H [facility] Stop: 07/05/17 16:14 Levalbuterol HCl (Xopenex) 1.25 mg IH TID [facility] Last Admin: 07/05/17 07:31 Dose: 1.25 mg Methylprednisolone (Solu-Medrol) 20 mg IVP DAILY [facility] Mupirocin (Bactroban Ointment) 0 gm TOP DAILY [facility] Last Admin: 07/04/17 11:34 Dose: 1 applic Non-Formulary Medication (Glatiramer Acetate [Copaxone]) 40 mg SQ MWF [facility] Last Admin: 07/03/17 09:52 Dose: Not Given Pantoprazole Sodium (Protonix Ec Tab) 40 mg PO 0630 [facility] Last Admin: 07/05/17 06:11 Dose: 40 mg Pregabalin (Lyrica) 100 mg PO BID [facility] Last Admin: 07/04/17 17:04 Dose: 100 mg Tizanidine HCl (Zanaflex) 4 mg PO HS [facility] Last Admin: 07/04/17 21:41 Dose: 4 mg - Labs Labs: 06/29/17 06:20 07/03/17 10:10 PT 12.0 SECONDS (9.4-12.5) 06/27/17 12:00 INR 1.09 (0.93-1.08) H 06/27/17 12:00 APTT 28.5 Seconds (25.1-36.5) 06/27/17 12:00 - Constitutional Appears: Chronically Ill - Head Exam Head Exam: NORMAL INSPECTION - Neck Exam Neck Exam: absent: Meningismus - Respiratory Exam Respiratory Exam: Decreased Breath Sounds - Cardiovascular Exam Cardiovascular Exam: +S1, +S2 - GI/Abdominal Exam GI & Abdominal Exam: Soft. absent: Tenderness Assessment and Plan - Assessment and Plan (Free Text) Plan: Assessment bilateral inguinal area skin and skin structure infection associated with ovarian cancer metastasis S/P I and D POD #6 RUQ pain R/O cholecystitis history of chronic left leg ulcers, infected with Pseudomonas and Proteus mirabilis urinary bladder / urethral cancer ovarian cancer multiple sclerosis S/P pacemaker placement S/P right sided port-a-cath placement Plan continue Vancomycin and Merrem day 8 - pathology shows acute on chronic inflammation with abscess formation, cx only growing Corynebacterium which is contamination and should continue broad spectrum coverage to complete 7-10 days of therapy HIDA scan is normal will continue to follow clinically overall prognosis is poor
--- NOTE | 2017-07-05 18:22 | CP.PCM.PCO ---
Physician Communication Note - Physician Communication Note Physician Communication Note: Pt needs tostart chemotherapy-? Onco appt
--- NOTE | 2017-07-06 02:27 | DS ---
HISTORY OF PRESENT ILLNESS: This is a 62-year-old female who was admitted to the hospital because she had developed cellulitis around her groin area. The patient was treated with IV antibiotics and she had improvement in her symptoms. The patient has a history of uterine cancer. She is awaiting chemotherapy intervention. She has no complaints of any headaches, dizziness. No nausea. No vomiting. PHYSICAL EXAMINATION: VITAL SIGNS: Temperature is 97.9, pulse 104, blood pressure is 109/92, O2 saturation is 96%. GENERAL: The patient is lying in bed, flat, comfortable. HEENT: No oral lesion. Anicteric sclerae. Moist mucosa. NECK: No JVD, adenopathy, or thyromegaly. CARDIOVASCULAR: S1 and S2, regular. No murmurs, rubs, or gallops. LUNGS: Clear to auscultation bilaterally. No wheeze, rales, or rhonchi. ABDOMEN: Bowel sounds are positive, soft, nontender and nondistended. EXTREMITIES: no cyanosis, clubbing or edema. ASSESSMENT AND PLAN: 1. Hypokalemia. 2. Pubic area cellulitis. 3. Uterine cancer. 4. Edema of the vaginal area. 5. Chronic leg ulceration secondary to Pseudomonas and Proteus. 6. Right-sided Port-A-Cath. 7. Pacemaker. 8. Status post inguinal node resection. PLAN: The patient is comfortable. HIDA scan is negative. She is going to be discharged home, to follow up as outpatient with her oncologist for further intervention for her cancer. She is on Colace for constipation. She is on Dilaudid for pain . She is receiving Lyrica. She is going to continue with her Tylenol as needed. She has finished a 7-day course of antibiotics. Ronal Eaton MD
== END 2017-07-05 19:00 | disposition home or self-care (01) | DRG 571 ==
LOC: ED 11:14 → ERH 11:50 → 3RNO 15:38
PROVIDERS: ADMIT Internal Medicine; ATTEND Internal Medicine
PROC: 0JBC0ZZ Excision of Pelvic Region Subcutaneous Tissue and Fascia, Open Approach (ICD-10-PCS; principal; 2017-06-28 10:30)
PROC: 3E0F7GC Introduction of Other Therapeutic Substance into Respiratory Tract, Via Natural or Artificial Opening (ICD-10-PCS; 2017-06-30)
PROC: 0DJ08ZZ Inspection of Upper Intestinal Tract, Via Natural or Artificial Opening Endoscopic (ICD-10-PCS; 2017-07-05)
DX: L03.315 Cellulitis of perineum (principal); C56.9 Malignant neoplasm of unspecified ovary; C77.4 Secondary and unspecified malignant neoplasm of inguinal and lower limb lymph nodes; C79.11 Secondary malignant neoplasm of bladder; L97.829 Non-pressure chronic ulcer of other part of left lower leg with unspecified severity; I42.9 Cardiomyopathy, unspecified; L02.214 Cutaneous abscess of groin; E87.6 Hypokalemia; I25.10 Atherosclerotic heart disease of native coronary artery without angina pectoris; G35 Multiple sclerosis; K59.03 Drug induced constipation; T40.605A Adverse effect of unspecified narcotics, initial encounter; J45.909 Unspecified asthma, uncomplicated; K80.20 Calculus of gallbladder without cholecystitis without obstruction; R10.13 Epigastric pain; G62.9 Polyneuropathy, unspecified; I10 Essential (primary) hypertension; Z95.0 Presence of cardiac pacemaker; Z90.710 Acquired absence of both cervix and uterus; Z90.6 Acquired absence of other parts of urinary tract; Z87.891 Personal history of nicotine dependence

== ENCOUNTER 2017-08-06 13:25 | Inpatient (IN) | payer BC ==
[2017-08-06 13:27] VITALS: BMI 22.8
--- NOTE | 2017-08-06 14:32 | ED PDOC ---
Arrival/HPI - General Chief Complaint: Fever Time Seen by Provider: 08/06/17 14:05 Historian: Patient, Spouse - History of Present Illness Narrative History of Present Illness (Text): 08/06/17 14:30 A 62 year old female, whose past medical history includes ovarian CA, pacemaker , and leg ulcer, presents to the emergency department complaining of fevers, chills, vomiting, body aches, sore throat, and cough with tinges of blood for the past 6 days. The patient states that her last chemotherapy treatment was 6 days ago. She also states she has some blood in her colostomy bag yesterday. The patient denies headache, dizziness, chest pain, shortness of breath, dyspnea on exertion, diarrhea, back pain, neck pain, urinary/bowel changes, or any other complaint. PMD: Dr. Hernadez Oncologist: Dr. Lake Surgeon: Dr. Navarro Time/Duration: Other (6 days ) Symptom Onset: Sudden Symptom Course: Unchanged Activities at Onset: Rest, Light Context: Home Past Medical History - Provider Review Nursing Documentation Reviewed: Yes - Infectious Disease Hx of Infectious Diseases: None - Tetanus Immunization Tetanus Immunization: Up to Date - Cardiac Hx Cardiac Disorders: Yes (s/p angioplasty) - Pulmonary Hx Respiratory Disorders: No - Neurological Hx Neurological Disorder: Yes Hx Multiple Sclerosis: Yes Other/Comment: 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 - HEENT Hx HEENT Disorder: No Other/Comment: wears glasses - Renal Hx Renal Disorder: Yes Other/Comment: bladder stones/ cancer - Endocrine/Metabolic Hx Endocrine Disorders: No - Hematological/Oncological Hx Blood Transfusions: No Hx Blood Transfusion Reaction: No - Integumentary Hx Dermatological Disorder: No - Musculoskeletal/Rheumatological Hx Musculoskeletal Disorders: Yes - Gastrointestinal Hx Gastrointestinal Disorders: Yes Hx Vomiting: No - Genitourinary/Gynecological Hx Genitourinary Disorders: Yes Hx Bladder Cancer: Yes Hx Bladder Stone: Yes Hx Ovarian Cancer: Yes Other/Comment: + R side urostomy - Psychiatric Hx Emotional Abuse: No Hx Physical Abuse: No Hx Substance Use: No - Surgical History Other/Comment: Gtube reversal. R side urostomy. L side pacemaker/ defibrillator. Partial hysterectomy - Anesthesia Hx Anesthesia Reactions: No Hx Malignant Hyperthermia: No - Suicidal Assessment Feels Threatened In Home Enviroment: No Family/Social History - Physician Review Nursing Documentation Reviewed: Yes Family/Social History: No Known Family HX Smoking Status: Never Smoked Hx Alcohol Use: No Hx Substance Use: No Hx Substance Use Treatment: No Allergies/Home Meds Allergies/Adverse Reactions: Allergies No Known Allergies Allergy (Verified 08/06/17 14:23) Home Medications: Home Meds Medication Instructions Recorded Confirmed Tapentadol HCl [Nucynta ER] 150 mg PO Q12H 08/16/13 06/27/17 Tapentadol HCl [Nucynta] 100 mg PO TID 10/16/15 06/27/17 tiZANidine [Zanaflex] 4 mg PO HS 10/16/15 06/27/17 Ascorbic Acid [Vitamin C] 1 tab PO DAILY 10/19/15 06/27/17 Cholecalciferol (Vitamin D3) 50,000 unit PO MON 10/19/15 06/27/17 [Vitamin D] Pregabalin [Lyrica] 225 mg PO BID 10/19/15 06/27/17 Glatiramer Acetate [Copaxone] 40 mg SQ MWF 10/20/15 06/27/17 Review of Systems - Physician Review All systems were reviewed & negative as marked: Yes - Review of Systems Constitutional: Fevers Respiratory: Cough (with tinges of blood). absent: SOB Cardiovascular: absent: Chest Pain, SALDIVAR Gastrointestinal: Nausea, Vomiting Musculoskeletal: absent: Back Pain, Neck Pain Physical Exam Vital Signs Reviewed: Yes Vital Signs Temp Pulse Resp BP Pulse Ox 08/06/17 16:53 96 H 18 105/60 98 08/06/17 15:05 103.1 F H 08/06/17 13:27 103.1 F H 105 H 18 99/59 L 94 L Temperature: Febrile Blood Pressure: Hypotensive Pulse: Tachycardic Respiratory Rate: Normal Appearance: Positive for: Comfortable, Ill-Appearing Pain Distress: Mild Mental Status: Positive for: Alert and Oriented X 3 - Systems Exam Head: Present: Atraumatic, Normocephalic Pupils: Present: PERRL Extroacular Muscles: Present: EOMI Conjunctiva: Present: Normal Mouth: Present: Moist Mucous Membranes Nose (Internal): Present: Other (Nasal Congestion) Neck: Present: Normal Range of Motion Respiratory/Chest: Present: Clear to Auscultation, Good Air Exchange. No: Respiratory Distress, Accessory Muscle Use Cardiovascular: Present: Regular Rate and Rhythm, Normal S1, S2. No: Murmurs Abdomen: Present: Tenderness (Epigastric tenderness), Guarding, Ostomy Tubes ( Right lower colostomy bag.) Back: Present: Normal Inspection Upper Extremity: Present: Normal Inspection. No: Cyanosis, Edema Lower Extremity: Present: Normal Inspection. No: Edema Neurological: Present: GCS=15, CN II-XII Intact, Speech Normal Skin: Present: Warm, Dry, Normal Color, Other (left lower left leg with ulcers x 2 about 1.5 cm size each, superficial; no surrounding erythema; no swelling; no pus; no tenderness). No: Rashes Psychiatric: Present: Alert, Oriented x 3, Normal Insight, Normal Concentration Medical Decision Making ED Course and Treatment: 08/06/17 14:49 Impression: A 62 year old female presents to the emergency department complaining of fevers , chills, vomiting, body aches, sore throat, and cough with tinges of blood for the past 6 days. Plan: -- EKG -- Chest X-ray -- Abd/Pelvis CT -- Labs -- Blood/ Sputum/ Urine Culture -- Urinalysis -- Tylenol and IV Fluids -- Reverse isolation room -- Reassess and disposition Progress Notes: EKG: Ordered, reviewed, and independently interpreted the EKG. Rate : 110 BPM Rhythm : electronically paced 08/06/2017 15:22 Chest X-ray IMPRESSION: No active disease. No significant interval change compared to the prior examination(s). Dictator: Juan Pike MD 08/06/17 16:55 I will continue to hydrate her and monitor. CXR negative for PNA. Fever reduced with antipyretic. Treated empirically with Zosyn and Vanco. Also will treat with Tamiflu. 08/06/17 18:04 Patient's Potassium and Magnesium are low and were replaced. Patient is pancytopenic. Case discussed with Dr. Lake who recommends 1 unit of PRBC and 2 units of platelets. Called the lab and they confirmed they will call the [facility]. Patient BP improved. Patient pain is controlled. Case discussed with Dr. Jean who is covering for Dr. Hernadez who will admit to Dr. Hernadez. Dr. Lake recommended Dr. Anglin for ID and Kumar Navarro for colostomy bag. 08/06/17 18:[address] Navarro who will evaluate the patient on admission. He agrees with current management. Advised to call the surgical territory manager. 08/06/17 18:21 Discussed case with Radiation Control Worker Vicky who is aware of case. - Critical Care Critical Care Minutes: 30 minutes - Lab Interpretations Lab Results: 08/06/17 16:40 08/06/17 15:30 Lab Results 08/06/17 16:40: WBC 0.8 L* D, RBC 2.79 L, Hgb 8.1 L, Hct 24.1 L, MCV 86.4 D, MCH 29.0, MCHC 33.6, RDW 14.7 H, Plt Count 16 L*, Manual Plt Count 21 L*, MPV 9.3, Gran % 45.4 L, Lymph % (Auto) 53.3 H, Jasper % (Auto) 1.3, Eos % (Auto) 0.0 L , Baso % (Auto) 0.0, Gran # 0.34 L, Lymph # (Auto) 0.4 L, Jasper # (Auto) 0.0 L, Eos # (Auto) 0.0, Baso # (Auto) 0.00, Platelet Evaluation Low 08/06/17 15:30: Sodium 133, Chloride 95 L, Potassium 2.8 L*, Carbon Dioxide 28, Anion Gap 13, BUN 12, Creatinine 0.8, Est GFR ( Amer) > 60, Est GFR (Non- Af Amer) > 60, Random Glucose 109, Calcium 9.3, Phosphorus 1.8 L, Magnesium 1.6 L, Total Bilirubin 0.6, AST 81 H D, ALT 90 H, Alkaline Phosphatase 74, Total Protein 6.8, Albumin 3.5, Globulin 3.3, Albumin/Globulin Ratio 1.1 08/06/17 15:30: pO2 43, VBG pH 7.49 H, VBG pCO2 39.0 L, VBG HCO3 29.7 H, VBG Total CO2 30.9 H, VBG O2 Sat (Calc) 86.6 H, VBG Base Excess 5.9 H, VBG Potassium 2.7 L, Sodium 132.0, Chloride 98.0, Glucose 114 H, Lactate 1.0, FiO2 21.0, Venous Blood Potassium 2.7 L 08/06/17 15:30: PT 13.4 H, INR 1.17 H, APTT 46.9 H I have reviewed the lab results: Yes - RAD Interpretation Radiology Orders: 08/06/17 14:29 CHEST PORTABLE [RAD] Stat 08/06/17 15:48 ABD & PELVIS W/O PO OR IV CONT [CT] Stat - EKG Interpretation Interpreted by ED Physician: Yes Type: 12 lead EKG - Medication Orders Current Medication Orders: Acetaminophen (Tylenol 325mg Tab) 975 mg PO ONCE PRN PRN Reason: Fever >100.4 F Last Admin: 08/06/17 15:05 Dose: 975 mg MAR Pain/Vitals Document 08/06/17 15:05 GMD (Rec: 08/06/17 15:05 GMD [id number]) Vitals Temperature (97.6 F-99.6 F) 103.1 F Sodium Chloride (Sodium Chloride 0.9%) 1,000 mls @ 150 mls/hr IV .Q6H40M [facility] Last Admin: 08/06/17 15:38 Dose: 150 mls/hr eMAR Start Stop Document 08/06/17 15:38 GMD (Rec: 08/06/17 15:38 GMD [id number]) Intravenous Solution Start Date 08/06/17 Start Time 15:38 Potassium Chloride (Potassium Chloride 10 Meq/100 Ml) 10 meq in 100 mls @ 50 mls/hr IVPB ONCE ONE Stop: 08/06/17 18:43 Vancomycin HCl (Vancomycin 1gm) 1 gm in 250 mls @ 167 mls/hr IVPB STAT STA PRN Reason: Protocol Stop: 08/06/17 18:55 Magnesium Oxide (Mag-Ox) 400 mg PO BID [facility] Non-Formulary Medication (Glatiramer Acetate [Copaxone]) 40 mg SQ MWF [facility] Non-Formulary Medication (Tapentadol Hcl [Nucynta]) 100 mg PO TID [facility] Non-Formulary Medication (Tapentadol Hcl [Nucynta Er]) 150 mg PO Q12H [facility] Potassium Chloride (K-Dur 20 Meq Er Tab) 20 meq PO ONCE ONE Stop: 08/06/17 22:01 Potassium Phos/Sodium Phos (Neutra-Phos) 1 pkt PO BID [facility] Stop: 08/10/17 18:01 Discontinued Medications Sodium Chloride (Sodium Chloride 0.9%) 1,000 mls @ 999 mls/hr IV .Q1H1M STA Stop: 08/06/17 17:54 Sodium Chloride (Sodium Chloride 0.9%) 1,000 mls @ 999 mls/hr IV .Q1H1M STA Stop: 08/06/17 17:54 Piperacillin Sod/Tazobactam Sod (Zosyn 4.5 Gm In Ns 100ml) 4.5 gm in 100 mls @ 200 mls/hr IVPB STAT STA PRN Reason: Protocol Stop: 08/06/17 17:55 Magnesium Oxide (Mag-Ox) 400 mg PO STAT STA Stop: 08/06/17 17:44 Morphine Sulfate (Morphine) 4 mg IVP STAT STA Stop: 08/06/17 16:23 Last Admin: 08/06/17 17:03 Dose: 4 mg MAR Pain Assessment Document 08/06/17 17:03 GMD (Rec: 08/06/17 17:03 GMD [id number]) Pain Reassessment Is this a pain reassessment? No Presence of Pain Presence of Pain Yes IVP Administration Document 08/06/17 17:03 GMD (Rec: 08/06/17 17:03 GMD [id number]) Charges for Administration # of IVP Administrations 1 Oseltamivir Phosphate (Tamiflu Cap) 75 mg PO STAT STA PRN Reason: Protocol Stop: 08/06/17 17:44 Potassium Chloride (Potassium Chloride Oral Soln) 40 meq PO STAT STA Stop: 08/06/17 16:45 - Scribe Statement The provider has reviewed the documentation as recorded by the Celestine Prajapati Provider Seanibe Attestation: All medical record entries made by the Seanibmarty were at my direction and personally dictated by me. I have reviewed the chart and agree that the record accurately reflects my personal performance of the history, physical exam, medical decision making, and the department course for this patient. I have also personally directed, reviewed, and agree with the discharge instructions and disposition. Disposition/Present on Arrival - Present on Arrival Any Indicators Present on Arrival: Yes History of DVT/PE: No History of Uncontrolled Diabetes: No Urinary Catheter: Yes History of Decub. Ulcer: No History Surgical Site Infection Following: None - Disposition Have Diagnosis and Disposition been Completed?: Yes Diagnosis: Neutropenic fever, Pancytopenia, Hypokalemia, Hypomagnesemia, Sepsis Disposition: HOSPITALIZED Disposition Time: 18:04 Patient Plan: Admission Patient Problems: Current Active Problems Problem Status Onset Neutropenic fever Acute Pancytopenia Acute Hypokalemia Acute Hypomagnesemia Acute Sepsis Acute Condition: GUARDED
--- NOTE | 2017-08-06 15:23 | RAD ---
HISTORY: Sepsis Patient COMPARISON: 06/30/2017. FINDINGS: LUNGS: No active pulmonary disease. PLEURA: No significant pleural effusion identified, no pneumothorax apparent. CARDIOVASCULAR: No radiographic findings to suggest acute or significant cardiovascular disease. Position/ configuration of pacemaker device: Satisfactory. Venous access catheter in stable, satisfactory position. OSSEOUS STRUCTURES: No significant abnormalities. VISUALIZED UPPER ABDOMEN: Normal. OTHER FINDINGS: None. IMPRESSION: No active disease. No significant interval change compared to the prior examination(s).
[2017-08-06] MEDS: Sodium Chloride 0.9% 1,000 ML IV SCH ×2 (15:38→22:48)
[2017-08-06 15:41] LABS: VENOUS BLOOD GAS BASE EXCESS 5.9 mmol/L (0.0-2.0); VENOUS BLOOD GAS PO2 43 mm/Hg (30-55); VENOUS BLOOD PH 7.49 (7.32-7.43)
[2017-08-06 16:11] LABS: ALB/GLOB RATIO 1.1 (1.1-1.8); ALBUMIN 3.5 g/dL (3.0-4.8); ALT/SGPT 90 U/L (7-56); AST/SGOT 81 U/L (14-36); BLOOD UREA NITROGEN 12 mg/dL (7-21); CALCIUM 9.3 mg/dL (8.4-10.5); GFR AFRICAN-AMERICAN > 60; GFR NON-AFRICAN AMERICAN > 60; MAGNESIUM 1.6 mg/dL (1.7-2.2)
[2017-08-06] MEDS ORDERED: Morphine 4 mg/ml ISec IVP STA (16:22)
[2017-08-06 16:33] LABS: INR 1.17 (0.93-1.08); PARTIAL THROMBOPLASTIN TIME 46.9 Seconds (25.1-36.5); PROTHROMBIN TIME 13.4 SECONDS (9.4-12.5)
[2017-08-06] MEDS ORDERED: Potassium Chloride 40 mEq/30 ml LIQ UD PO STA (16:44)
[2017-08-06] MEDS ORDERED: Sodium Chloride 0.9% 1,000 ML IV STA ×2 (16:54)
[2017-08-06 17:02] LABS: GRAN # 0.34 (1.4-6.5); GRAN % 45.4 % (50.0-68.0); HEMOGLOBIN 8.1 g/dL (12.0-16.0); LYMPH # 0.4 (1.2-3.4); LYMPH % 53.3 % (22.0-35.0); MEAN CELL VOLUME 86.4 fl (80.0-105.0); MEAN CORPUSCULAR HGB CONC 33.6 g/dl (31.0-37.0); MEAN PLATELET VOLUME 9.3 fl (7.0-11.0); MONO % 1.3 % (1.0-6.0); RBC 2.79 10^6/uL (3.5-6.1); RED CELL DISTRIBUTION WIDTH 14.7 % (11.5-14.5)
[2017-08-06 17:20] LABS: PLATELET COUNT 16 10^3/uL (120.0-450.0); WHITE BLOOD COUNT 0.8 10^3/ul (4.5-11.0)
[2017-08-06] MEDS ORDERED: Vancomycin 1gm in NS 250ml 1 GM/250 ML BAG IVPB STA (17:26)
[2017-08-06] MEDS ORDERED: Piperacill/Tazo 4.5gm in NS 4.5 GM/100 ML BAG IVPB STA (17:26)
[2017-08-06] MEDS ORDERED: Magnesium Oxide 400 mg Tab UD PO STA (17:43)
[2017-08-06 18:08] LABS: PLATELET COUNT MANUAL 21 K/mm3 (120-450); PLATELET ESTIMATE LOW (NORMAL)
--- NOTE | 2017-08-06 19:01 | CP.PCM.CON ---
History of Present Illness - History of Present Illness History of Present Illness: 62F with PMH of past bladder cancer and current metastatic ovarian cancer who presented to the ED for fever, cough, and malaise, and epigastric abdominal pain , and bleeding from her ileal conduit urostomy. Surgery consulted to evaluate for abdominal pain. Patient states that pain is the same since she had her first set of chemo a few weeks ago. Patient just finished her second set of chemotherapy on a few days ago and that she had nausea soon afterwards. Patient states that she is coughing up specks of blood not vomiting. Has constipation with dark hard stools. Last BM was yesterday AM and was dark and solid. Currently has no nausea and minimal abdominal pain. Review of Systems - Review of Systems All systems: reviewed and no additional remarkable complaints except (as per HPI ) 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 - HEENT Hx HEENT Problems: No Other/Comment: wears glasses - RENAL Hx Chronic Kidney Disease: Yes Other/Comment: bladder stones/ cancer - ENDOCRINE/METABOLIC Hx Endocrine Disorders: No - HEMATOLOGICAL/ONCOLOGICAL Hx Blood Transfusions: No Hx Blood Transfusion Reaction: No - INTEGUMENTARY Hx Dermatological Problems: No - MUSCULOSKELETAL/RHEUMATOLOGICAL Hx Musculoskeletal Disorders: Yes - GASTROINTESTINAL Hx Gastrointestinal Disorders: Yes Hx Gastroesophageal Reflux: Yes Hx Vomiting: No - GENITOURINARY/GYNECOLOGICAL Hx Genitourinary Disorders: Yes Hx Bladder Cancer: Yes Hx Bladder Stone: Yes Hx Ovarian Cancer: Yes Other/Comment: + R side urostomy - PSYCHIATRIC Hx Emotional Abuse: No Hx Physical Abuse: No Hx Substance Use: No - SURGICAL HISTORY Other/Comment: Gtube reversal. R side urostomy. L side pacemaker/ defibrillator. Partial hysterectomy. Bladder cancer resection - ANESTHESIA Hx Anesthesia Reactions: No Hx Malignant Hyperthermia: No Meds Allergies/Adverse Reactions: Allergies Allergy/AdvReac Type Severity Reaction Status Date / Time No Known Allergies Allergy Verified 08/06/17 14:23 - Medications Medications: Current Medications Acetaminophen (Tylenol 325mg Tab) 975 mg PO ONCE PRN PRN Reason: Fever >100.4 F Last Admin: 08/06/17 15:05 Dose: 975 mg Sodium Chloride (Sodium Chloride 0.9%) 1,000 mls @ 150 mls/hr IV .Q6H40M [facility] Last Admin: 08/06/17 15:38 Dose: 150 mls/hr Magnesium Oxide (Mag-Ox) 400 mg PO BID [facility] Non-Formulary Medication (Glatiramer Acetate [Copaxone]) 40 mg SQ MWF [facility] Non-Formulary Medication (Tapentadol Hcl [Nucynta]) 100 mg PO TID [facility] Non-Formulary Medication (Tapentadol Hcl [Nucynta Er]) 150 mg PO Q12H [facility] Potassium Chloride (K-Dur 20 Meq Er Tab) 20 meq PO ONCE ONE Stop: 08/06/17 22:01 Potassium Phos/Sodium Phos (Neutra-Phos) 1 pkt PO BID [facility] Stop: 08/10/17 18:01 Physical Exam - Constitutional Appears: Non-toxic, No Acute Distress, Older Than Stated Age, Cachectic - Head Exam Head Exam: ATRAUMATIC, NORMOCEPHALIC - Eye Exam Eye Exam: Normal appearance. absent: Conjunctival injection, Scleral icterus - ENT Exam ENT Exam: Mucous Membranes Moist, Normal Oropharynx - Respiratory Exam Respiratory Exam: NORMAL BREATHING PATTERN. absent: Accessory Muscle Use, Respiratory Distress - GI/Abdominal Exam GI & Abdominal Exam: Distended (moderate), Mass (LLQ), Soft, Tenderness (LLQ and LUQ) Additional comments: urostomy pink and productive of clear urine - Rectal Exam Rectal Exam: absent: Hemorrhoids, Fecal Impaction Additional comments: no external abnormlities or masses. No stool in rectal vault. Tiny speck of BRB , more likely d/t digitization than rectal bleed. - Extremities Exam Extremities exam: Positive for: pedal pulses present. Negative for: calf tenderness, pedal edema - Neurological Exam Neurological exam: Alert, Oriented x3 - Psychiatric Exam Psychiatric exam: Normal Affect, Normal Mood - Skin Skin Exam: Dry, Normal Color, Warm Additional comments: Chronic left lower extremity ulcers with dressings from wound care [place] [facility] [place] Results - Vital Signs Recent Vital Signs: Last Vital Signs Temp 103.1 F H 08/06/17 15:05 Pulse 96 H 08/06/17 16:53 Resp 18 08/06/17 16:53 BP 105/60 08/06/17 16:53 Pulse Ox 98 08/06/17 16:53 - Labs Result Diagrams: 08/06/17 16:40 08/06/17 15:30 - Imaging and Cardiology CT scan - abdomen Status: Image reviewed by me, Report reviewed by me CT scan - pelvis Status: Image reviewed by me, Report reviewed by me Assessment & Plan - Assessment and Plan (Free Text) Assessment: 62F with abdominal pain and nausea d/t metastatic ovarian cancer and chemotherapy vs mild colitis Plan: No surgical intervention indicated Stool softener for constipation, PRN anti-emetic medication, GI ppx Medical management of pancytopenia Urology consult for reported hematuria IVF Regular diet or as recommended by primary Supplement severe electrolyte abnormalities Discussed with Dr. Ramon Ahn, PGY2
[2017-08-06 19:12] LABS: URINE BILIRUBIN NEGATIVE (NEGATIVE); URINE BLOOD LARGE (NEGATIVE); URINE GLUCOSE (UA) NEGATIVE (NEGATIVE); URINE LEUKOCYTE ESTERASE LARGE Leu/uL (NEGATIVE); URINE NITRATE NEGATIVE (NEGATIVE); URINE PROTEIN 30 mg/dL (<30 mg/dL); URINE UROBILINOGEN 0.2 E.U./dL (<1 E.U./dL)
[2017-08-06 19:24] LABS: URINE APPEARANCE CLOUDY (CLEAR); URINE COLOR YELLOW (YELLOW)
[2017-08-06] MEDS: Magnesium Oxide 400 mg Tab UD PO SCH (19:29)
--- NOTE | 2017-08-06 19:34 | CT ---
EXAM: CT Abdomen and Pelvis Without Intravenous Contrast CLINICAL HISTORY: 62 years old, female; Pain; Abdominal pain; Acute; Patient HX: HX: Ovarian ca; Additional info: Abd pain TECHNIQUE: Axial computed tomography images of the abdomen and pelvis without intravenous contrast. All CT scans at this facility use one or more dose reduction techniques, viz.: automated exposure control; ma/kV adjustment per patient size (including targeted exams where dose is matched to indication; i.e. head); or iterative reconstruction technique. Coronal and sagittal reformatted images were created and reviewed. COMPARISON: CT 06/27/2017, 06/01/2017 FINDINGS: Limitations: Lack of intravenous contrast. Motion artifact - mild. Lower thorax: Mild cardiomegaly. Small pericardial effusion. Pacemaker leads. Minimal atelectasis/scarring. ABDOMEN: Liver: Unremarkable. Gallbladder and bile ducts: No calcified stones. No ductal dilation. Pancreas: Unremarkable. No ductal dilation. Spleen: No splenomegaly. Adrenals: No mass. Kidneys and ureters: No renal calculi. Moderate pelvocaliectasis of both kidneys. Urinary diversion with ileal conduit. Stomach and bowel: Postsurgical changes of small bowel. Fluid within small bowel. Fluid/loose stool within RIGHT colon. Few scattered diverticula within colon. No associated inflammatory stranding. Segmental areas of mild mural thickening vs underdistention of descending, sigmoid colon. No associated inflammatory stranding. No obstruction. Appendix: Normal caliber. No definite inflammation. PELVIS: Bladder: Cystectomy. Reproductive: Complex cystic and solid mass with peripheral calcification within midline pelvis, roughly 8.0 x 10.6 x 8.7 cm, minimally increased in size from previous examination. ABDOMEN and PELVIS: Intraperitoneal space: Trace free fluid within pelvis. No free air. Bones/joints: Avascular necrosis of femoral heads. No acute fracture. Soft tissues: Mild stranding/focal scarring left anterior abdominal wall. [id number] stranding/focal scarring within anterior pelvic wall/inguinal regions. Vasculature: Mild atherosclerotic disease. No aneurysm. Lymph nodes: Mild retroperitoneal lymphadenopathy, suboptimally evaluated. IMPRESSION: 1. Pelvic mass compatible with history of ovarian cancer, minimally increased from previous examination. 2. Mild colitis versus underdistention. Clinical correlation is needed. 3. Fluid/loose stool within bowel may suggest diarrhea illness. 4. Incidental/non-acute findings are described above.
[2017-08-06 19:52] LABS: URINE RBC 15 - 20 /hpf (0-2)
[2017-08-06 19:53] LABS: URINE AMORPHOUS SEDIMENT MODERATE; URINE BACTERIA LARGE (NEG)
[2017-08-06] MEDS ORDERED: Potassium Chloride 20 mEq ER Tab PO ONE (22:00)
[2017-08-06] MEDS: Potassium & Sodium Phosphate PO SCH (22:21)
[2017-08-07] MEDS: Vancomycin 1gm in NS 250ml 1 GM/250 ML BAG IVPB SCH ×3 (00:07→22:08)
[2017-08-07] MEDS ORDERED: Morphine 4 mg/ml ISec IVP STA (00:38)
[2017-08-07] MEDS: Meropenem 1g/NS 100mL IVPB 1 GM/100 ML PIGGYBACK IVPB SCH ×4 (05:42→22:07)
[2017-08-07 06:21] LABS: HEMOGLOBIN 8.3 g/dL (12.0-16.0); MEAN CORPUSCULAR HEMOGLOBIN 28.4 pg (25.0-35.0); MEAN CORPUSCULAR HGB CONC 32.3 g/dl (31.0-37.0); MEAN PLATELET VOLUME 10.3 fl (7.0-11.0); RBC 2.92 10^6/uL (3.5-6.1); RED CELL DISTRIBUTION WIDTH 14.7 % (11.5-14.5)
[2017-08-07 06:26] LABS: WHITE BLOOD COUNT 0.8 10^3/ul (4.5-11.0)
[2017-08-07 06:57] LABS: ALT/SGPT 90 U/L (7-56); AST/SGOT 63 U/L (14-36); BLOOD UREA NITROGEN 9 mg/dL (7-21); CALCIUM 9.1 mg/dL (8.4-10.5); GFR AFRICAN-AMERICAN > 60; GFR NON-AFRICAN AMERICAN > 60; MAGNESIUM 1.6 mg/dL (1.7-2.2)
--- NOTE | 2017-08-07 07:41 | CP.PCM.PN ---
Subjective - Date & Time of Evaluation Date of Evaluation: 08/07/17 Time of Evaluation: 08:45 - Subjective Subjective: Surgery progress note for Dr. Navarro Patient seen and examined at bedside. No acute events overnight. Patient denies any pain, fevers, chills, or chest pain. Objective - Vital Signs/Intake and Output Vital Signs (last 24 hours): Temp Pulse Resp BP Pulse Ox 100.6 F H 52 L 18 157/48 H 98 08/07/17 05:52 08/06/17 22:58 08/06/17 22:58 08/06/17 22:58 08/06/17 22:58 Intake and Output: 08/07/17 08/07/17 06:59 18:59 Intake Total 325 720 Balance 325 720 - Medications Medications: Current Medications Acetaminophen (Tylenol 325mg Tab) 650 mg PO Q4 PRN PRN Reason: Fever >100.4 F Last Admin: 08/07/17 05:52 Dose: 650 mg Sodium Chloride (Sodium Chloride 0.9%) 1,000 mls @ 150 mls/hr IV .Q6H40M [facility] Last Admin: 08/06/17 22:48 Dose: 150 mls/hr Meropenem/Sodium Chloride (Meropenem 1g/Ns 100ml Ivpb) 1 gm in 100 mls @ 100 mls/hr IVPB Q8 [facility] PRN Reason: Protocol Stop: 08/16/17 06:01 Last Admin: 08/07/17 05:42 Dose: 100 mls/hr Vancomycin HCl (Vancomycin 1gm) 1 gm in 250 mls @ 167 mls/hr IVPB Q12H [facility] PRN Reason: Protocol Stop: 08/15/17 22:16 Last Admin: 08/07/17 00:07 Dose: Not Given Magnesium Oxide (Mag-Ox) 400 mg PO BID [facility] Last Admin: 08/06/17 19:29 Dose: Not Given Non-Formulary Medication (Glatiramer Acetate [Copaxone]) 40 mg SQ MWF [facility] Non-Formulary Medication (Tapentadol Hcl [Nucynta]) 100 mg PO TID [facility] Non-Formulary Medication (Tapentadol Hcl [Nucynta Er]) 150 mg PO Q12H [facility] Potassium Phos/Sodium Phos (Neutra-Phos) 1 pkt PO BID [facility] Stop: 08/10/17 18:01 Last Admin: 08/06/17 22:21 Dose: 1 pkt - Labs Labs: 08/07/17 06:00 08/07/17 06:00 PT 13.4 SECONDS (9.4-12.5) H 08/06/17 15:30 INR 1.17 (0.93-1.08) H 08/06/17 15:30 APTT 46.9 Seconds (25.1-36.5) H 08/06/17 15:30 - Constitutional Appears: Well - Head Exam Head Exam: ATRAUMATIC, NORMAL INSPECTION, NORMOCEPHALIC - Eye Exam Eye Exam: EOMI, Normal appearance, PERRL Pupil Exam: NORMAL ACCOMODATION, PERRL - ENT Exam ENT Exam: Mucous Membranes Moist, Normal Exam - Neck Exam Neck Exam: Full ROM, Normal Inspection. absent: Lymphadenopathy - Respiratory Exam Respiratory Exam: Clear to Ausculation Bilateral, NORMAL BREATHING PATTERN - Cardiovascular Exam Cardiovascular Exam: REGULAR RHYTHM, +S1, +S2. absent: Murmur - GI/Abdominal Exam GI & Abdominal Exam: Soft, Normal Bowel Sounds. absent: Tenderness - Exam Additional comments: urostomy pink and productive of clear urine - Extremities Exam Extremities Exam: Full ROM, Normal Capillary Refill, Normal Inspection. absent : Joint Swelling, Pedal Edema - Back Exam Back Exam: NORMAL INSPECTION - Neurological Exam Neurological Exam: Alert, Awake, CN II-XII Intact, Normal Gait, Oriented x3 - Psychiatric Exam Psychiatric exam: Normal Affect, Normal Mood - Skin Skin Exam: Dry, Intact, Normal Color, Warm - Additional Findings Additional findings: Chronic left lower extremity ulcers with dressings from wound care center at [facility] [place] Assessment and Plan - Assessment and Plan (Free Text) Assessment: 62F with abdominal pain and nausea d/t metastatic ovarian cancer and chemotherapy vs mild colitis Plan: Stool softener for constipation, PRN anti-emetic medication, GI ppx Medical management of pancytopenia Urology consult for reported hematuria IVF Regular diet or as recommended by primary Supplement severe electrolyte abnormalities At this time, no surgical intervention needed. We will sign off for now, please re-consult as needed
[2017-08-07] MEDS ORDERED: Magnesium Sulfate 2 GM in Sodium Chloride 0.9% 100 ML IVPB ONE (09:25)
[2017-08-07] MEDS: Morphine 2 mg/ml ISec IVP PRN ×3 (10:00→20:51)
[2017-08-07] MEDS: Potassium & Sodium Phosphate PO SCH ×2 (10:01→19:11)
[2017-08-07] MEDS: Magnesium Oxide 400 mg Tab UD PO SCH ×2 (10:01→19:11)
[2017-08-07] MEDS: Nystatin 100,000 Units/ml Oral Susp 5 ml UD PO SCH ×3 (10:02→19:11)
[2017-08-07] MEDS ORDERED: Magnesium Sulfate 1 gm in D5W 1 GM/100 ML BAG IV ONE (12:26)
--- NOTE | 2017-08-07 16:04 | CARD ---
APPROVED REPORT EKG Measurement Heart [id number] <Conclusion> Atria sensed , ventricular paced rhythm
--- NOTE | 2017-08-07 16:36 | CP.PCM.CON ---
History of Present Illness - History of Present Illness History of Present Illness: 62 year old female with PMH of urinary bladder / urethral cancer, ovarian cancer , multiple sclerosis, S/P pacemaker placement, S/P right sided port-a-cath placement was brought in to [facility] (Formerly [facility]) because of fever, chills, weakness, body aches for 6 days now, since she had chemotherapy session 6 days prior to admission. She denies cough or SOB or dyspnea on exertion , no headache or dizziness, no rhinorrhea, no nausea or vomiting, no abdominal pain, no diarrhea, no dysuria. In the ED, CBC revealed that the patient is neutropenic. The patient was also noted to be febrile in the ED. Infectious Diseases consult is requested to further evaluate and manage. Review of Systems - Review of Systems All systems: reviewed and no additional remarkable complaints except (as per HPI ) 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 - HEENT Hx HEENT Problems: No Other/Comment: wears glasses - RENAL Hx Chronic Kidney Disease: Yes Other/Comment: bladder stones/ cancer - ENDOCRINE/METABOLIC Hx Endocrine Disorders: No - HEMATOLOGICAL/ONCOLOGICAL Hx Blood Transfusions: No Hx Blood Transfusion Reaction: No - INTEGUMENTARY Hx Dermatological Problems: No - MUSCULOSKELETAL/RHEUMATOLOGICAL Hx Musculoskeletal Disorders: Yes - GASTROINTESTINAL Hx Gastrointestinal Disorders: Yes Hx Gastroesophageal Reflux: Yes Hx Vomiting: No - GENITOURINARY/GYNECOLOGICAL Hx Genitourinary Disorders: Yes Hx Bladder Cancer: Yes Hx Bladder Stone: Yes Hx Ovarian Cancer: Yes Other/Comment: + R side urostomy - PSYCHIATRIC Hx Emotional Abuse: No Hx Physical Abuse: No Hx Substance Use: No - SURGICAL HISTORY Other/Comment: Gtube reversal. R side urostomy. L side pacemaker/ defibrillator. Partial hysterectomy. Bladder cancer resection - ANESTHESIA Hx Anesthesia Reactions: No Hx Malignant Hyperthermia: No Meds Allergies/Adverse Reactions: Allergies Allergy/AdvReac Type Severity Reaction Status Date / Time No Known Allergies Allergy Verified 08/06/17 14:23 - Medications Medications: Current Medications Acetaminophen (Tylenol 325mg Tab) 650 mg PO Q4 PRN PRN Reason: Fever >100.4 F Last Admin: 08/07/17 05:52 Dose: 650 mg Sodium Chloride (Sodium Chloride 0.9%) 1,000 mls @ 150 mls/hr IV .Q6H40M [facility] Last Admin: 08/06/17 22:48 Dose: 150 mls/hr Meropenem/Sodium Chloride (Meropenem 1g/Ns 100ml Ivpb) 1 gm in 100 mls @ 100 mls/hr IVPB Q8 [facility] PRN Reason: Protocol Stop: 08/16/17 06:01 Last Admin: 08/07/17 05:42 Dose: 100 mls/hr Vancomycin HCl (Vancomycin 1gm) 1 gm in 250 mls @ 167 mls/hr IVPB Q12H [facility] PRN Reason: Protocol Stop: 08/15/17 22:16 Last Admin: 08/07/17 00:07 Dose: Not Given Magnesium Oxide (Mag-Ox) 400 mg PO BID [facility] Last Admin: 08/06/17 19:29 Dose: Not Given Non-Formulary Medication (Glatiramer Acetate [Copaxone]) 40 mg SQ MWF [facility] Non-Formulary Medication (Tapentadol Hcl [Nucynta]) 100 mg PO TID [facility] Non-Formulary Medication (Tapentadol Hcl [Nucynta Er]) 150 mg PO Q12H [facility] Potassium Phos/Sodium Phos (Neutra-Phos) 1 pkt PO BID [facility] Stop: 08/10/17 18:01 Last Admin: 08/06/17 22:21 Dose: 1 pkt Physical Exam - Constitutional Appears: Non-toxic, Chronically Ill - Head Exam Head Exam: NORMAL INSPECTION - ENT Exam ENT Exam: Mucous Membranes Moist - Neck Exam Neck exam: Negative for: Meningismus - Respiratory Exam Respiratory Exam: Decreased Breath Sounds - Cardiovascular Exam Cardiovascular Exam: +S1, +S2 - GI/Abdominal Exam GI & Abdominal Exam: Soft. absent: Tenderness Results - Vital Signs Recent Vital Signs: Last Vital Signs Temp 100.6 F H 08/07/17 05:52 Pulse 52 L 08/06/17 22:58 Resp 18 08/06/17 22:58 BP 157/48 H 08/06/17 22:58 Pulse Ox 98 08/06/17 22:58 - Labs Result Diagrams: 08/07/17 06:00 08/07/17 06:00 Labs: Laboratory Results - last 24 hr 08/06/17 08/06/17 08/06/17 18:02 18:21 19:55 Urine Color Yellow Urine Appearance Cloudy Urine pH 8.0 Ur Specific [place] 1.015 Urine Protein 30 H Urine Glucose (UA) Negative Urine Ketones Negative Urine Blood Large H Urine Nitrate Negative Urine Bilirubin Negative Urine Urobilinogen 0.2 Ur Leukocyte Esterase Large H Urine RBC 15 - 20 Urine WBC 2 - 5 Ur Epithelial Cells 1 - 3 Amorphous Sediment Moderate Urine Bacteria Large Influenza Typ A,B (EIA) Negative for flu a/b Blood Type B POSITIVE Antibody Screen Negative Crossmatch See Detail BBK History Checked Patient has bt Assessment & Plan - Assessment and Plan (Free Text) Plan: Assessment Febrile neutropenia history of bilateral inguinal area skin and skin structure infection associated with ovarian cancer metastasis S/P I and D history of chronic left leg ulcers, infected with Pseudomonas and Proteus mirabilis urinary bladder / urethral cancer ovarian cancer multiple sclerosis S/P pacemaker placement S/P right sided port-a-cath placement Plan started patient on Vancomycin and Merrem - follow up blood, urine cx; CT scan of the abdomen and pelvis showed the ovarian mass and probable colonic underdistention will trend WBC count will continue to follow clinically overall prognosis is poor
--- NOTE | 2017-08-07 18:46 | CT ---
CT chest without IV contrast Indication: Wheezing Technique: Contiguous axial images were obtained through the chest without intravenous contrast enhancement. Sagittal and coronal reconstructions were generated and reviewed. This CT exam was performed using 1 or more of the following dose reduction techniques: Automated exposure control, adjustment of the MAA and/or kV according to patient size, and/or use of iterative reconstruction technique. Radiation dose (DLP): 396.95 MGy-cm. Comparison: Chest x-ray performed 08/06/17 Findings: Streak artifact limits evaluation of the upper chest/neck. Right-sided central venous catheter extends the cavoatrial junction. Visualized portions of the inferior thyroid gland appear unremarkable. Limited visualization of the unenhanced mediastinal and hilar vascular structures appear grossly unremarkable. Left-sided AICD. Trace pericardial fluid. No focal consolidation. Small right greater than left pleural effusions and scattered regions of probable atelectasis. No pneumothorax. Limited visualization of the noncontrast upper abdomen: Bilateral partially imaged hydronephrosis. Degenerative changes of the spine. Impression: Right greater than left small pleural effusions scattered regions of probable atelectasis. Mild venous congestion. Cardiomegaly. Left-sided AICD. Trace pericardial fluid. Right-sided central venous catheter. Partially imaged bilateral hydronephrosis.
[2017-08-07] MEDS: Levalbuterol 0.63 MG/3 ML Inhal Soln UD IH SCH (19:46)
--- NOTE | 2017-08-07 22:08 | PCM.URO ---
Urology Progress Note - Objective Lab Studies: Reviewed (full note to be dictated thanks for gu consult) Lab Results Last 24 Hours: Laboratory Results - last 24 hr 08/06/17 08/07/17 08/07/17 18:02 06:00 06:00 WBC 0.8 L* RBC 2.92 L Hgb 8.3 L Hct 25.7 L MCV 88.0 MCH 28.4 MCHC 32.3 RDW 14.7 H Plt Count 63 L MPV 10.3 Sodium 138 Potassium 3.6 Chloride 104 Carbon Dioxide 25 Anion Gap 13 BUN 9 Creatinine 0.6 L Est GFR ( Amer) > 60 Est GFR (Non-Af Amer) > 60 Random Glucose 87 Calcium 9.1 Phosphorus 2.2 L Magnesium 1.6 L Total Bilirubin 0.9 AST 63 H D ALT 90 H Alkaline Phosphatase 70 Total Protein 6.0 Albumin 3.0 Globulin 3.0 Albumin/Globulin Ratio 1.0 L Blood Type B POSITIVE Antibody Screen Negative Crossmatch See Detail BBK History Checked Patient has bt Intake & Output: Intake & Output 08/07/17 08/07/17 08/08/17 06:59 18:59 06:59 Intake Total 325 1525 Balance 325 1525 Weight 146 lb Intake: Oral 1200 Blood Product 325 325 Red Blood Cells Cpd As1 325 Lr Unit [id number] Red Blood Cells Cpd As1 325 Lr Unit [id number] Other: Voiding Method Ileal Conduit (Right) # Voids Urine, Voided 3 # Bowel Movements 0 Vital Signs: Vital Signs - 24 hr 08/06/17 08/07/17 08/07/17 22:58 05:52 08:14 Temperature 100.2 F H 100.6 F H 99.7 F H Pulse Rate 52 L 92 H Respiratory 18 20 Rate Blood Pressure 157/48 H 113/74 O2 Sat by Pulse 98 96 Oximetry 08/07/17 08/07/17 08/07/17 10:00 12:08 12:09 Temperature 98.8 F 98.8 F Pulse Rate 99 H 106 H 106 H Respiratory 18 18 Rate Blood Pressure 97/55 L 97/55 L O2 Sat by Pulse Oximetry 08/07/17 08/07/17 08/07/17 12:23 13:08 15:10 Temperature 99.8 F H 99 F 99 F Pulse Rate 107 H 103 H 108 H Respiratory 18 17 17 Rate Blood Pressure 99/63 L 111/73 113/74 O2 Sat by Pulse Oximetry 08/07/17 08/07/17 08/07/17 16:00 18:00 19:50 Temperature 99.2 F Pulse Rate 98 H 108 H 80 Respiratory 20 Rate Blood Pressure 116/74 O2 Sat by Pulse 96 Oximetry
--- NOTE | 2017-08-07 23:02 | HP ---
HISTORY OF PRESENT ILLNESS: The patient is 62 years old, known to me from multiple previous admissions, came to Emergency Room because of having fever at home, generalized weakness, complaint of having some abdominal discomfort. No history of vomiting, but did have nausea and diarrhea. Complaint of generalized body aches and pain, complaint of epigastric discomfort. The patient states she had chemotherapy done last week and that was her second round few days ago. The patient states she did have cough with specks of blood in her phlegm and her vomitus. Complaint of constipation, her last BM was 2 days ago. PAST MEDICAL HISTORY: Significant for 1. Metastatic ovarian CA. 2. Bladder CA status post ileal conduit formation. 3. Pancytopenia. 4. Multiple sclerosis. ALLERGIES: SHE IS NOT ALLERGIC TO ANY MEDICATION. MEDICATIONS AT HOME: She is on Nucynta. She is on Copaxone 40 mg Monday, Monday, Monday; Zanaflex; Lyrica and ascorbic acid. SOCIAL HISTORY: She is , lives with her . Denies smoking or drinking. PHYSICAL EXAMINATION: GENERAL: The patient is awake, alert, oriented, communicative. VITAL SIGNS: The patient's temperature 100.6 when she was admitted, today is 99.8. Pulse 107, respirations 18, blood pressure 99/63. LUNGS: Bilateral fair airflow. No rhonchi or crackle. HEART: S1 and S2 audible. ABDOMEN: Soft. No rebound. No guarding. Slight epigastric discomfort. Ileal conduit has clear urine. LABORATORY DATA: WBC 0.8, hemoglobin 8.3, hematocrit 25.7, platelets 63. Chemistry: Sodium 138, potassium 3.6, chloride 104, CO2 of 25, BUN 9, creatinine 0.6, blood sugar of 87, phosphorus is 2.2, magnesium 1.6, AST 63, ALT 90. Urinalysis is unremarkable. ASSESSMENT AND PLAN: 1. Fever, source unknown. She had CT scan of the abdomen and pelvis done that shows pelvic mass compatible with history of ovarian cancer, minimal increase; mild colitis versus . 2. Metastatic ovarian cancer status post chemo. 3. Pancytopenia. 4. Hypokalemia. 5. Hypomagnesemia. PLAN: The patient will receive 1 pack RBCs. We will supplement potassium. She is on magnesium sulfate also. We will follow up her electrolytes. Awaiting ID input. We will follow up this patient in a.m. She has been started on vancomycin and was given dose of . Kimberley Hernadez MD
--- NOTE | 2017-08-07 23:21 | CP.PCM.CON ---
History of Present Illness - History of Present Illness History of Present Illness: Pt. is a young 62 year old female with stage IV ovarian cancer, bladder cancer. She received second line chemo , first cycle 2 weeks ago with carbo/gemzar. She called office on 08/03/17 informing having high fever of 102F. I spoke to her and advised her to go ER right away. She did come to ER. I called her several times for next few days but no answer. Several messages were left to call back. She presented to ER on 08/06/17 with high fever and hypotension. urine culture growing gram negative rods. Flu serology negative. I asked her why she did not go to ER when advised, she told me that she was trying on her own to get the fever down . CBC showed pancytopenia. Review of Systems - Constitutional Constitutional: As Per HPI, Fever, Malaise, Weakness - EENT Eyes: absent: As Per HPI, Blind Spots, Blurred Vision, Change in Vision, Decreased Night Vision, Diplopia, Discharge, Dry Eye, Exophthalmos, Floaters, Irritation, Itchy Eyes, Loss of Peripheral Vision, Pain, Photophobia, Requires Corrective Lenses, Sees Flashes, Spots in Vision, Tunnel Vision, Other Visual Disturbances, Loss of Vision, Other Nose/Mouth/Throat: absent: As Per HPI, Epistaxis, Nasal Congestion, Nasal Discharge, Nasal Obstruction, Nasal Trauma, Nose Pain, Post Nasal Drip, Sinus Pain, Sinus Pressure, Bleeding Gums, Change in Voice, Dental Pain, Dry Mouth, Dysphagia, Halitosis, Hoarsness, Lip Swelling, Mouth Lesions, Mouth Pain, Odynophagia, Sore Throat, Throat Swelling, Tongue Swelling, Facial Pain, Neck Pain, Neck Mass, Other - Cardiovascular Cardiovascular: absent: As Per HPI, Acrocyanosis, Chest Pain, Chest Pain at Rest , Chest Pain with Activity, Claudication, Diaphoresis, Dyspnea, Dyspnea on Exertion, Edema, Irregular Heart Rhythm, Pain Radiating to Arm/Neck/Jaw, Leg Edema, Leg Ulcers, Lightheadedness, Orthopnea, Palpitations, Paroxysmal Nocturnal Dyspnea, Pedal Edema, Radiating Pain, Rapid Heart Rate, Slow Heart Rate, Syncope, Other - Respiratory Respiratory: absent: As Per HPI, Cough, Dyspnea, Hemoptysis, Dyspnea on Exertion , Wheezing, Snoring, Stridor, Pain on Inspiration, Chest Congestion, Excessive Mucous Production, Change in Mucous Color, Pain with Coughing, Other - Gastrointestinal Gastrointestinal: As Per HPI - Genitourinary Genitourinary: As Per HPI - Reproductive: Female Reproductive:Female: absent: As Per HPI, Amenorrhea, Amenorrhea/ Control, Currently Menstual, Cycle <21 Days, Cycle >35 Days, Cycle Variable, Menses 1-7 Days, Menses >/= 8 Days, Menses Variable, Cycle > 4 Weeks Between, No Menses for 6 Months, Heavy Menses, Light Menses, Normal Menses, Spotting Between Cycles , S/P Hysterectomy, Menopausal, Post Menopausal, Premenarche, Abnormal Vaginal Bleeding, Dysmenorrhea, Dyspareunia, Genital Lesions, Genital Pruritis, Pelvic Pain, Prolapse Symptoms, Sexual Dysfunction, Vaginal Discharge, Vaginal Dryness , Vaginal Odor, Vaginal Pruritis, Other - Menstruation Menstruation: absent: As Per HPI, Amenorrhea, Amenorrhea/ Control, Currently Menstual, Cycle <21 Days, Cycle >35 Days, Cycle Variable, Menses 1-7 Days, Menses >/= 8 Days, Menses Variable, Cycle > 4 Weeks Between, No Menses for 6 Months, Heavy Menses, Light Menses, Normal Menses, Spotting Between Cycles , S/P Hysterectomy, Menopausal, Post Menopausal, Premenarche, Abnormal Vaginal Bleeding, Dysmenorrhea, Other - Musculoskeletal Musculoskeletal: absent: As Per HPI, Abnormal Gait, Arthralgias, Atrophy, Back Pain, Deformity, Joint Swelling, Limited Range of Motion, Loss of Height, Muscle Cramps, Muscle Weakness, Myalgias, Neck Pain, Numbness, Radiating Pain into Limb, Stiffness, Tingling, Other - Integumentary Integumentary: absent: As Per HPI, Acne, Alopecia, Bleeding Lesions, Change in Hair, Change in Nails, Change in Pigmentation, Changing Lesions, Dry Skin, Erythema, Furuncle, Hirsutism, Lesions, New Lesions, Non-Healing Lesions, Photosensitivity, Pruritus, Rash, Skin Pain, Skin Ulcer, Sores, Striae, Swelling , Unusual Bruising, Wounds, Jaundice, Other - Neurological Neurological: absent: As Per HPI, Abnormal Gait, Abnormal Hearing, Abnormal Movements, Abnormal Speech, Behavioral Changes, Burning Sensations, Confusion, Convulsions, Disequilibrium, Dizziness, Numbness, Focal Weakness, Frequent Falls , Headaches, Lack of Coordination, Loss of Vision, Memory Loss, Paresthesias, Radicular Pain, Restless Legs, Sensory Deficit, Syncope, Tingling, Tremor, Vertigo, Weakness, Other Visual Disturbances, Other - Psychiatric Psychiatric: absent: As Per HPI, Abnormal Sleep Pattern, Anhedonia, Anxiety, Auditory Hallucinations, Behavioral Changes, Change in Appetite, Change in Libido, Confusion, Depression, Difficulty Concentrating, Hallucinations, Homicidal Ideation, Hopelessness, Irritability, Memory Loss, Mood Swings, Panic Attacks, Paranoia, Suicidal Ideation, Visual Hallucinations, Tactile Hallucinations, Other - Endocrine Endocrine: absent: As Per HPI, Change in Body Appearance, Change in Libido, Cold Intolorance, Deepening of Voice, Excessive Sweating, Fatigue, Flushing, Heat Intolorance, Increase in Ring/Shoe/Hat Size, Palpitations, Polydipsia, Polyphagia, Polyuria, Other - Hematologic/Lymphatic Hematologic: As Per HPI 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 - HEENT Hx HEENT Problems: No Other/Comment: wears glasses - RENAL Hx Chronic Kidney Disease: Yes Other/Comment: bladder stones/ cancer - ENDOCRINE/METABOLIC Hx Endocrine Disorders: No - HEMATOLOGICAL/ONCOLOGICAL Hx Blood Transfusions: No Hx Blood Transfusion Reaction: No - INTEGUMENTARY Hx Dermatological Problems: No - MUSCULOSKELETAL/RHEUMATOLOGICAL Hx Musculoskeletal Disorders: Yes - GASTROINTESTINAL Hx Gastrointestinal Disorders: Yes Hx Gastroesophageal Reflux: Yes Hx Vomiting: No - GENITOURINARY/GYNECOLOGICAL Hx Genitourinary Disorders: Yes Hx Bladder Cancer: Yes Hx Bladder Stone: Yes Hx Ovarian Cancer: Yes Other/Comment: + R side urostomy - PSYCHIATRIC Hx Emotional Abuse: No Hx Physical Abuse: No Hx Substance Use: No - SURGICAL HISTORY Other/Comment: Gtube reversal. R side urostomy. L side pacemaker/ defibrillator. Partial hysterectomy. Bladder cancer resection - ANESTHESIA Hx Anesthesia Reactions: No Hx Malignant Hyperthermia: No Meds Allergies/Adverse Reactions: Allergies Allergy/AdvReac Type Severity Reaction Status Date / Time No Known Allergies Allergy Verified 08/06/17 14:23 - Medications Medications: Current Medications Acetaminophen (Tylenol 325mg Tab) 650 mg PO Q4 PRN PRN Reason: Fever >100.4 F Last Admin: 08/07/17 05:52 Dose: 650 mg Fluconazole (Diflucan) 200 mg PO DAILY [facility] PRN Reason: Protocol Last Admin: 08/07/17 10:01 Dose: 200 mg Meropenem/Sodium Chloride (Meropenem 1g/Ns 100ml Ivpb) 1 gm in 100 mls @ 100 mls/hr IVPB Q8 [facility] PRN Reason: Protocol Stop: 08/16/17 06:01 Last Admin: 08/07/17 22:07 Dose: Not Given Vancomycin HCl (Vancomycin 1gm) 1 gm in 250 mls @ 167 mls/hr IVPB Q12H [facility] PRN Reason: Protocol Stop: 08/15/17 22:16 Last Admin: 08/07/17 22:08 Dose: 167 mls/hr Levalbuterol HCl (Xopenex) 0.63 mg [facility] Last Admin: 08/07/17 19:46 Dose: 0.63 mg Magnesium Oxide (Mag-Ox) 400 mg PO BID [facility] Last Admin: 08/07/17 19:11 Dose: 400 mg Morphine Sulfate (Morphine) 2 mg IVP Q3 PRN PRN Reason: Pain, moderate (4-7) Last Admin: 08/07/17 20:51 Dose: 2 mg Glatiramer Acetate [ (Copaxone] 40 Mg) 40 mg SQ MWF [facility] Last Admin: 08/07/17 11:14 Dose: Not Given Tapentadol Hcl [ (Nucynta] 100 Mg) 100 mg PO TID [facility] Last Admin: 08/07/17 19:04 Dose: Not Given Tapentadol Hcl [ (Nucynta Er] 150 Mg) 150 mg PO Q12H [facility] Last Admin: 08/07/17 17:23 Dose: Not Given Nystatin (Nystatin Oral Susp) 5 ml PO 5XD [facility] Last Admin: 08/07/17 19:11 Dose: 5 ml Potassium Phos/Sodium Phos (Neutra-Phos) 1 pkt PO BID [facility] Stop: 08/10/17 18:01 Last Admin: 08/07/17 19:11 Dose: 1 pkt Physical Exam - Constitutional Appears: Chronically Ill - Head Exam Head Exam: ATRAUMATIC, NORMAL INSPECTION, NORMOCEPHALIC - Eye Exam Eye Exam: Normal appearance - ENT Exam ENT Exam: Mucous Membranes Moist - Neck Exam Neck exam: Positive for: Normal Inspection - Respiratory Exam Respiratory Exam: Clear to Auscultation Bilateral, NORMAL BREATHING PATTERN - Cardiovascular Exam Cardiovascular Exam: REGULAR RHYTHM, +S1, +S2 - GI/Abdominal Exam GI & Abdominal Exam: Normal Bowel Sounds, Soft - Extremities Exam Extremities exam: Positive for: normal inspection - Neurological Exam Neurological exam: Normal Gait, Oriented x3 - Psychiatric Exam Psychiatric exam: Normal Affect - Skin Skin Exam: Dry, Normal Color, Warm Results - Vital Signs Recent Vital Signs: Last Vital Signs Temp 99.2 F 08/07/17 16:00 Pulse 80 08/07/17 19:50 Resp 20 08/07/17 16:00 BP 133/81 08/07/17 22:01 Pulse Ox 96 08/07/17 16:00 - Labs Result Diagrams: 08/07/17 06:00 08/07/17 06:00 Labs: Laboratory Results - last 24 hr 08/06/17 08/07/17 08/07/17 18:02 06:00 06:00 WBC 0.8 L* RBC 2.92 L Hgb 8.3 L Hct 25.7 L MCV 88.0 MCH 28.4 MCHC 32.3 RDW 14.7 H Plt Count 63 L MPV 10.3 Sodium 138 Potassium 3.6 Chloride 104 Carbon Dioxide 25 Anion Gap 13 BUN 9 Creatinine 0.6 L Est GFR ( Amer) > 60 Est GFR (Non-Af Amer) > 60 Random Glucose 87 Calcium 9.1 Phosphorus 2.2 L Magnesium 1.6 L Total Bilirubin 0.9 AST 63 H D ALT 90 H Alkaline Phosphatase 70 Total Protein 6.0 Albumin 3.0 Globulin 3.0 Albumin/Globulin Ratio 1.0 L Blood Type B POSITIVE Antibody Screen Negative Crossmatch See Detail BBK History Checked Patient has bt Assessment & Plan - Assessment and Plan (Free Text) Assessment: 1. Gram negative sepsis : Urine gram negative rods. On IV antibiotics as per ID. 2. Pancytopenia : s/p 2 units of platelets. 2 units PRBC to be given today. Neupogen 480 mcgm SQ daily. Neutropenic precautions. 3. Difficulty swallowing : diflucan 200 mg daily. Mouth was QID. 4. Renal : normal renal functions. 5. Stage IV ovarian cancer , Bladder cancer. - Date & Time Date: 08/07/17 Time: 09:00
[2017-08-08] MEDS: Nystatin 100,000 Units/ml Oral Susp 5 ml UD PO SCH ×6 (00:13→21:55)
[2017-08-08] MEDS: Morphine 2 mg/ml ISec IVP PRN ×5 (04:07→21:52)
[2017-08-08] MEDS: Meropenem 1g/NS 100mL IVPB 1 GM/100 ML PIGGYBACK IVPB SCH ×3 (06:00→21:58)
[2017-08-08 06:33] LABS: EOS % 0.9 % (1.5-5.0); GRAN # 0.69 (1.4-6.5); GRAN % 59.4 % (50.0-68.0); HEMOGLOBIN 10.8 g/dL (12.0-16.0); LYMPH # 0.4 (1.2-3.4); LYMPH % 34.5 % (22.0-35.0); MEAN CELL VOLUME 89.9 fl (80.0-105.0); MEAN CORPUSCULAR HEMOGLOBIN 29.5 pg (25.0-35.0); MEAN CORPUSCULAR HGB CONC 32.8 g/dl (31.0-37.0); MEAN PLATELET VOLUME 10.4 fl (7.0-11.0); MONO # 0.1 (0.1-0.6); MONO % 5.2 % (1.0-6.0); RBC 3.66 10^6/uL (3.5-6.1); RED CELL DISTRIBUTION WIDTH 14.9 % (11.5-14.5)
[2017-08-08 06:57] LABS: WHITE BLOOD COUNT 1.2 10^3/ul (4.5-11.0)
[2017-08-08] MEDS: Levalbuterol 0.63 MG/3 ML Inhal Soln UD IH SCH ×3 (07:13→19:49)
[2017-08-08 07:31] LABS: ALB/GLOB RATIO 0.9 (1.1-1.8); ALBUMIN 3.4 g/dL (3.0-4.8); ALT/SGPT 139 U/L (7-56); AST/SGOT 85 U/L (14-36); BLOOD UREA NITROGEN 12 mg/dL (7-21); CALCIUM 9.7 mg/dL (8.4-10.5); GFR AFRICAN-AMERICAN > 60; GFR NON-AFRICAN AMERICAN > 60
[2017-08-08] MEDS: Magnesium Oxide 400 mg Tab UD PO SCH ×2 (10:05→18:18)
[2017-08-08] MEDS: POLYETHYLENE GLYCOL 3350 17 GM/Dose PACKET PO SCH (10:05)
[2017-08-08] MEDS: Potassium & Sodium Phosphate PO SCH ×2 (10:05→18:17)
[2017-08-08] MEDS: Enoxaparin 30 mg Syringe SC SCH (10:08)
[2017-08-08] MEDS: Sucralfate 1 gm/10 ml Oral Susp UD PO SCH ×3 (10:08→18:18)
[2017-08-08] MEDS: Vancomycin 1gm in NS 250ml 1 GM/250 ML BAG IVPB SCH ×2 (10:09→23:10)
--- NOTE | 2017-08-08 13:13 | RAD ---
PROCEDURE: Left Foot Radiographs. HISTORY: left foot swelling COMPARISON: None. FINDINGS: BONES: Normal. No fracture. JOINTS: Normal. SOFT TISSUES: Normal. OTHER FINDINGS: None. IMPRESSION: Normal left foot radiographs.
--- NOTE | 2017-08-08 18:17 | PN ---
DATE: SUBJECTIVE: The patient is 62 years old, seen and examined. She states her shortness of breath is much better. No nausea or vomiting. Complained of swelling of the left foot and it hurts. Eating and tolerating. PHYSICAL EXAMINATION: VITAL SIGNS: She is afebrile, pulse 89, respirations 20, blood pressure /78. LUNGS: Bilateral fair airflow. No rhonchi or crackles. HEART: S1, S2 audible. ABDOMEN: Soft. Ileal conduit having clear urine. No hematuria. EXTREMITIES: She has a healing ulcer on her both legs, left more than the right, under care of Dr. Rosales in wound care center. Left foot, +2 swelling, right leg and foot has no swelling. LABORATORY DATA: WBC is 1.2, hemoglobin 10.8, hematocrit 32.9, platelet of 63. Chemistry: Sodium 142, potassium 3.6, chloride 106, CO2 of 24, BUN 12, creatinine 0.8, blood sugar of 130. AST 85, ALT 139, alkaline phosphatase is 93. Blood culture, gram-negative javier. Urine culture positive. Second blood culture is negative. CT scan of the chest showed small pleural effusion, scattered regions of atelectasis with cardiomegaly and she has defibrillator placed in the left side. Bilateral hydronephrosis. ASSESSMENT: 1. Sepsis. Blood culture positive for gram-negative rods. 2. Symptomatic anemia, status post blood transfusion. 3. Metastatic ovarian cancer, currently on chemotherapy, had second round. 4. Cardiomyopathy, status post defibrillator placement. 5. Pancytopenia. 6. Left foot swelling, rule out gouty arthritis. PLAN: Currently the patient is on meropenem. She is on vancomycin. I will order for colchicine 0.6 twice a day and check uric acid level in a.m. Probably, she has hyperuricemia after chemotherapy and left foot pain could be gouty arthritis. We will follow up CBC and CMP in a.m. Kimberley Hernadez MD
--- NOTE | 2017-08-08 18:31 | US ---
PROCEDURE: Lower extremity GIN exam HISTORY: Peripheral vascular disease with pain and ulceration. Previous smoker. PHYSICIAN(S): Kwame Mcneal MD. FINDINGS: The resting GIN's are normal: right, 1.12and left, 1.20. The brachial systolic pressures are symmetric. The high thigh pressures and waveforms are relatively normal. The right calf, ankle, and metatarsal waveforms are decreased in amplitude compared to the left. However the waveforms are relatively normal. This is of uncertain significance P IMPRESSION: 1. Relatively normal GIN and PVR examination at rest.
--- NOTE | 2017-08-09 01:12 | CON ---
DATE: HISTORY OF PRESENT ILLNESS: This 62-year-old female is seen at bedside for consultation, evaluation, and management of ulcerations to her left lower leg. Patient states that the ulcers have been there since 2013 and has been followed by Dr. Rosales for the past several months. She denies any pain from the wounds and has been afebrile since admission. PAST MEDICAL HISTORY: Significant for multiple sclerosis, urinary bladder cancer, ovarian cancer, gastroesophageal reflux, chronic kidney disease. PAST SURGICAL HISTORY: Includes bladder cancer resection, left-sided pacemaker defibrillator, G-tube reversal, and partial hysterectomy. ALLERGIES: PATIENT HAS NO KNOWN DRUG ALLERGIES. MEDICATIONS: All medications noted in the MAR. VITAL SIGNS: Revealed temperature of 98.7, pulse rate of 99, blood pressure of 122/78, respiratory rate of 20. LABORATORY FINDINGS: Reveal a white blood cell count of 1.2, hemoglobin of 10.8, hematocrit of 32.9, platelet count of 63. No cultures of the wound had been taken. Left foot x-ray revealed no radiographic graphic evidence of osteomyelitis, cortical destruction, dislocation, or tumor. OBJECTIVE: Weakly palpable pedal pulses noted bilaterally. Absent pedal hair growth noted bilaterally. Lower extremity skin presents thin, shining, discolored bilaterally. Protective sensation is decreased using 5.07-g monofilament wire testing, but is intact. Capillary filling time is noted to be x3 seconds, x10 digits. There are noted to be two ulcerations located on the left lower leg. The more distal of the ulcerations measures approximately 1.2 cm x 1 cm x 0.2 cm. The more proximal ulceration measures 0.5 x 0.8 x 0.2 cm. Both the ulcerations are primarily granular with minimal serous drainage. None of the ulcers probe to tendon or bone. There is no purulence to suggest underlying abscess formation. There is no edema or erythema along the periphery of the wound to suggest cellulitis. ASSESSMENT: Two full-thickness ulcerations, left lower extremity. PLAN: Patient's wounds will be cleansed with normal sterile saline. We will order arterial Dopplers to ascertain lower extremity perfusion while patient is hospitalized. We will cleanse the wounds with normal sterile saline, apply Bactroban and Optifoam with an Joce wrap. Patient will be seen and followed daily. We will await culture results. Nolberto Morales DPM [facility] # [id number]
[2017-08-09] MEDS ORDERED: guaiFENesin 200 mg/10 ml Syrup UD PO STA (03:54)
--- NOTE | 2017-08-09 04:58 | PN ---
DATE: SUBJECTIVE: The patient was seen earlier this morning, in room 360, bed 2. No fevers, no chills. No chest pain. PHYSICAL EXAMINATION: VITAL SIGNS: On exam, temperature is 98, initially on admission, the patient's temperature was 103; blood pressure is 120/70, respiratory rate of 18, heart rate of 99. HEENT: Unremarkable. NECK: Supple. LUNGS: Decreased breath sounds. HEART: Normal S1 and S2. ABDOMEN: Soft. LABORATORY DATA: Reveals a white count of 1.2, hemoglobin of 10, platelets of 63. The patient does have an absolute granulocyte count of 0.69. Microbiology reveals a Gram-negative javier in the blood and the patient is on meropenem and also on vancomycin. ASSESSMENT AND PLAN: This is a 62-year-old female, who was seen earlier this morning, with sepsis with a febrile neutropenia. Patient with bladder and urethral cancer, ovarian cancer, and multiple sclerosis and pacemaker placement. Currently on vancomycin and meropenem, with a Gram-negative javier in the blood and white count improving. The patient had a CAT scan of the chest, which revealed right-sided small effusions, no consolidation is noted. We will follow closely with you. Awaiting for identification of Gram-negative javier. Tyler Anglin MD
[2017-08-09] MEDS: Meropenem 1g/NS 100mL IVPB 1 GM/100 ML PIGGYBACK IVPB SCH ×3 (06:01→21:40)
[2017-08-09] MEDS: Nystatin 100,000 Units/ml Oral Susp 5 ml UD PO SCH ×5 (06:03→21:40)
[2017-08-09] MEDS: Morphine 2 mg/ml ISec IVP PRN ×4 (08:06→21:52)
[2017-08-09] MEDS: Levalbuterol 0.63 MG/3 ML Inhal Soln UD IH SCH ×3 (08:17→19:58)
--- NOTE | 2017-08-09 09:12 | CP.PCM.PN ---
<Caitlyn Mendoza - Last Filed: 08/09/17 09:18> Subjective - Date & Time of Evaluation Date of Evaluation: 08/09/17 Time of Evaluation: 09:04 - Subjective Subjective: Progress note - Dr. Rosales 62 year old female patient was seen and evaluated at bedside for left leg wounds. Patient is AAOx3 and is in NAD. Patient denies of any acute overnight events. Patient denies of any pain to her left leg but does report of some swelling. Patient denies recent F/N/V/C/SOB/CP. Patient denies of any other pedal complains at this time. Objective - Vital Signs/Intake and Output Vital Signs (last 24 hours): Temp Pulse Resp BP Pulse Ox 98.7 F 99 H 20 122/78 95 08/08/17 08:10 08/08/17 08:10 08/08/17 08:10 08/08/17 08:10 08/08/17 08:10 Intake and Output: 08/09/17 08/09/17 06:59 18:59 Intake Total 240 Output Total 700 Balance -460 - Medications Medications: Current Medications Acetaminophen (Tylenol 325mg Tab) 650 mg PO Q4 PRN PRN Reason: Fever >100.4 F Last Admin: 08/07/17 05:52 Dose: 650 mg Colchicine (Colocrys) 0.6 mg PO BID [facility] Last Admin: 08/08/17 18:18 Dose: 0.6 mg Enoxaparin Sodium (Lovenox) 30 mg SC DAILY [facility] PRN Reason: Protocol Last Admin: 08/08/17 10:08 Dose: 30 mg Fluconazole (Diflucan) 200 mg PO DAILY [facility] PRN Reason: Protocol Last Admin: 08/08/17 10:05 Dose: 200 mg Meropenem/Sodium Chloride (Meropenem 1g/Ns 100ml Ivpb) 1 gm in 100 mls @ 100 mls/hr IVPB Q8 [facility] PRN Reason: Protocol Stop: 08/16/17 06:01 Last Admin: 08/09/17 06:01 Dose: 100 mls/hr Vancomycin HCl (Vancomycin 1gm) 1 gm in 250 mls @ 167 mls/hr IVPB Q12H [facility] PRN Reason: Protocol Stop: 08/15/17 22:16 Last Admin: 08/08/17 23:10 Dose: 167 mls/hr Levalbuterol HCl (Xopenex) 0.63 mg IH TIDRESP [facility] Last Admin: 08/09/17 08:17 Dose: 0.63 mg Magnesium Oxide (Mag-Ox) 400 mg PO BID [facility] Last Admin: 08/08/17 18:18 Dose: 400 mg Morphine Sulfate (Morphine) 2 mg IVP Q3 PRN PRN Reason: Pain, moderate (4-7) Last Admin: 08/09/17 08:06 Dose: 2 mg Glatiramer Acetate [ (Copaxone] 40 Mg) 40 mg SQ MWF [facility] Last Admin: 08/07/17 11:14 Dose: Not Given Tapentadol Hcl [ (Nucynta] 100 Mg) 100 mg PO TID [facility] Last Admin: 08/08/17 18:11 Dose: Not Given Tapentadol Hcl [ (Nucynta Er] 150 Mg) 150 mg PO Q12H [facility] Last Admin: 08/09/17 06:04 Dose: Not Given Nystatin (Nystatin Oral Susp) 5 ml PO 5XD [facility] Last Admin: 08/09/17 06:03 Dose: 5 ml Ondansetron HCl (Zofran Inj) 4 mg IVP Q6H PRN PRN Reason: Nausea/Vomiting Last Admin: 08/08/17 09:07 Dose: 4 mg Polyethylene Glycol (Miralax) 17 gm PO DAILY [facility] Last Admin: 08/08/17 10:05 Dose: 17 gm Potassium Phos/Sodium Phos (Neutra-Phos) 1 pkt PO BID [facility] Stop: 08/10/17 18:01 Last Admin: 08/08/17 18:17 Dose: 1 pkt Sucralfate (Carafate Oral Susp) 1 gm PO TID [facility] Last Admin: 08/08/17 18:18 Dose: 1 gm - Labs Labs: 08/08/17 06:10 08/08/17 06:10 PT 13.4 SECONDS (9.4-12.5) H 08/06/17 15:30 INR 1.17 (0.93-1.08) H 08/06/17 15:30 APTT 46.9 Seconds (25.1-36.5) H 08/06/17 15:30 - Constitutional Appears: Well, Non-toxic, No Acute Distress - Extremities Exam Additional comments: Bilateral LE exam: VASC: DP/PT pulses are palpable 1/4, Cap refill time: < 3 sec to all digits, Temp gradient: warm to cool from proximal to distal, +1 pitting edema noted on the distal leg and dorsum of the foot on the left DERM: 2 wounds present on the distal medial leg and one on the distal anterior aspect. Proximal wound measures approx 0.8cm x 0.5cm x 0.1cm, distal medial wound measures approx. 0.5cm x 0.5cm x 0.1 cm, distal anterior wound is fairly healed. All wound beds are grannular with approx 15% fibrotic island in the center, no tunneling, no undermining, no active discharge, no malodor, no dejah- wound erythema, no clinical suspicion of active infection at this time NEURO: Protective sensation grossly intact ORTHO: no pain on palpation of the wound, MMT: 5/5 in all 4 compartment - Neurological Exam Neurological Exam: Alert, Awake, Oriented x3 - Psychiatric Exam Psychiatric exam: Normal Affect, Normal Mood Assessment and Plan - Assessment and Plan (Free Text) Assessment: 62 year old female patient evaluated for left leg non-infected wounds Plan: Patient seen and evaluated with attending Dr. Rosales Labs, vitals and charts reviewed - afebrile and leukopenia (patient is currently on chemotherapy) IV abx as per ID - Vancomycin No active source of infection from the LLE Wound cleaned with saline and dressed using hydrogel, 4x4, bordered gauze and compression socks Patient is stable from podiatry stand point - follow up at wound care center once discharged from the hospital Podiatry to follow patient while in-house <Josefina Rosales - Last Filed: 08/13/17 15:26> Objective - Vital Signs/Intake and Output Vital Signs (last 24 hours): Temp Pulse Resp BP Pulse Ox 98.1 F 98 H 20 136/88 98 08/13/17 06:00 08/13/17 10:41 08/13/17 06:00 08/13/17 10:43 08/13/17 06:00 Intake and Output: 08/13/17 08/13/17 06:59 18:59 Intake Total 420 Output Total 800 Balance -380 - Medications Medications: Current Medications Acetaminophen (Tylenol 325mg Tab) 650 mg PO Q4 PRN PRN Reason: Fever >100.4 F Last Admin: 08/12/17 06:04 Dose: 650 mg Atenolol (Tenormin) 25 mg PO DAILY [facility] Last Admin: 08/13/17 10:46 Dose: Not Given Benzonatate (Tessalon Perles) 100 mg PO TID [facility] Last Admin: 08/13/17 13:54 Dose: 100 mg Enoxaparin Sodium (Lovenox) 70 mg SC BID [facility] PRN Reason: Protocol Last Admin: 08/13/17 10:42 Dose: 70 mg Fluticasone Propionate (Flonase) 1 actuation NS DAILY [facility] Last Admin: 08/13/17 10:43 Dose: 1 spr Furosemide (Lasix) 40 mg IVP DAILY [facility] Last Admin: 08/13/17 10:43 Dose: 40 mg Vancomycin HCl (Vancomycin 1gm) 1 gm in 250 mls @ 167 mls/hr IVPB Q12H [facility] PRN Reason: Protocol Stop: 08/26/17 10:16 Last Admin: 08/13/17 10:48 Dose: 167 mls/hr Meropenem/Sodium Chloride (Meropenem 1g/Ns 100ml Ivpb) 1 gm in 100 mls @ 100 mls/hr IVPB Q8 [facility] PRN Reason: Protocol Stop: 08/21/17 14:01 Last Admin: 08/13/17 13:54 Dose: 100 mls/hr Levalbuterol HCl (Xopenex) 0.63 mg IH TIDRESP [facility] Last Admin: 08/13/17 14:11 Dose: 0.63 mg Lidocaine/Prilocaine (Emla) 0 gm TOP TID PRN PRN Reason: Pain, Mild (1-3) Last Admin: 08/12/17 01:43 Dose: 1 applic Magnesium Oxide (Mag-Ox) 400 mg PO BID [facility] Last Admin: 08/13/17 10:41 Dose: 400 mg Methylprednisolone (Solu-Medrol) 40 mg IV Q12 [facility] Last Admin: 08/13/17 10:39 Dose: 40 mg Morphine Sulfate (Morphine) 4 mg IV Q4H PRN PRN Reason: Pain, moderate (4-7) Last Admin: 08/13/17 14:20 Dose: 4 mg Mupirocin (Bactroban Ointment) 1 gm TOP BID [facility] Last Admin: 08/13/17 10:59 Dose: Not Given Glatiramer Acetate [ (Copaxone] 40 Mg) 40 mg SQ MWF [facility] Last Admin: 08/11/17 11:03 Dose: Not Given Tapentadol Hcl [ (Nucynta] 100 Mg) 100 mg PO TID [facility] Last Admin: 08/13/17 13:56 Dose: Not Given Tapentadol Hcl [ (Nucynta Er] 150 Mg) 150 mg PO Q12H [facility] Last Admin: 08/12/17 17:24 Dose: Not Given Nystatin (Nystatin Oral Susp) 5 ml PO 5XD [facility] Last Admin: 08/13/17 13:54 Dose: 5 ml Ondansetron HCl (Zofran Inj) 4 mg IVP Q6H PRN PRN Reason: Nausea/Vomiting Last Admin: 08/09/17 21:52 Dose: 4 mg Polyethylene Glycol (Miralax) 17 gm PO DAILY [facility] Last Admin: 08/13/17 10:39 Dose: 17 gm Sucralfate (Carafate Oral Susp) 1 gm PO TID [facility] Last Admin: 08/13/17 13:54 Dose: 1 gm - Labs Labs: 08/13/17 07:00 08/13/17 07:00 PT 13.4 SECONDS (9.4-12.5) H 08/06/17 15:30 INR 1.17 (0.93-1.08) H 08/06/17 15:30 APTT 46.9 Seconds (25.1-36.5) H 08/06/17 15:30 Attending/Attestation - Attestation I have personally seen and examined this patient.: Yes I have fully participated in the care of the patient.: Yes I have reviewed all pertinent clinical information, including history, physical exam and plan: Yes
[2017-08-09 09:16] LABS: BASO # 0.01 K/mm3 (0.0-2.0); BASO % 0.7 % (0.0-3.0); EOS % 2.1 % (1.5-5.0); GRAN # 0.37 (1.4-6.5); GRAN % 26.5 % (50.0-68.0); HEMOGLOBIN 9.5 g/dL (12.0-16.0); LYMPH # 0.7 (1.2-3.4); LYMPH % 51.4 % (22.0-35.0); MEAN CELL VOLUME 89.6 fl (80.0-105.0); MEAN CORPUSCULAR HEMOGLOBIN 29.1 pg (25.0-35.0); MEAN CORPUSCULAR HGB CONC 32.4 g/dl (31.0-37.0); MEAN PLATELET VOLUME 9.9 fl (7.0-11.0); MONO # 0.3 (0.1-0.6); MONO % 19.3 % (1.0-6.0); RBC 3.27 10^6/uL (3.5-6.1); RED CELL DISTRIBUTION WIDTH 15.1 % (11.5-14.5)
[2017-08-09 09:21] LABS: ALT/SGPT 110 U/L (7-56); AST/SGOT 39 U/L (14-36); BLOOD UREA NITROGEN 13 mg/dL (7-21); CALCIUM 9.5 mg/dL (8.4-10.5); GFR AFRICAN-AMERICAN > 60; GFR NON-AFRICAN AMERICAN > 60; URIC ACID 3.9 mg/dL (2.5-6.2)
[2017-08-09 09:23] LABS: WHITE BLOOD COUNT 1.4 10^3/ul (4.5-11.0)
[2017-08-09] MEDS: POLYETHYLENE GLYCOL 3350 17 GM/Dose PACKET PO SCH (09:36)
[2017-08-09] MEDS: Potassium & Sodium Phosphate PO SCH ×2 (09:36→17:11)
[2017-08-09] MEDS: Sucralfate 1 gm/10 ml Oral Susp UD PO SCH ×3 (09:37→17:11)
[2017-08-09] MEDS: Magnesium Oxide 400 mg Tab UD PO SCH ×2 (09:37→17:11)
[2017-08-09] MEDS: Enoxaparin 30 mg Syringe SC SCH (09:37)
[2017-08-09] MEDS: Vancomycin 1gm in NS 250ml 1 GM/250 ML BAG IVPB SCH (09:42)
[2017-08-09] MEDS: guaiFENesin DM 200 mg-20 mg/10 ml UD PO PRN (16:08)
--- NOTE | 2017-08-09 17:58 | CP.PCM.PN ---
Subjective - Date & Time of Evaluation Date of Evaluation: 08/08/17 Time of Evaluation: 10:00 - Subjective Subjective: Comfortable in bed. Complaining of left foot pain. Abdominal pain , epigastric same as before. Poor oral intake. Objective - Vital Signs/Intake and Output Vital Signs (last 24 hours): Temp Pulse Resp BP Pulse Ox 99.0 F 99 H 20 144/98 H 100 08/09/17 16:14 08/09/17 16:14 08/09/17 16:14 08/09/17 16:14 08/09/17 16:14 Intake and Output: 08/09/17 08/09/17 06:59 18:59 Intake Total 240 840 Output Total 700 500 Balance -460 340 - Medications Medications: Current Medications Acetaminophen (Tylenol 325mg Tab) 650 mg PO Q4 PRN PRN Reason: Fever >100.4 F Last Admin: 08/07/17 05:52 Dose: 650 mg Colchicine (Colocrys) 0.6 mg PO BID [facility] Last Admin: 08/09/17 17:11 Dose: 0.6 mg Enoxaparin Sodium (Lovenox) 30 mg SC DAILY [facility] PRN Reason: Protocol Last Admin: 08/09/17 09:37 Dose: 30 mg Fluconazole (Diflucan) 200 mg PO DAILY [facility] PRN Reason: Protocol Last Admin: 08/09/17 09:37 Dose: 200 mg Guaifenesin/Dextromethorphan (Robitussin Dm) 10 ml PO Q4H PRN PRN Reason: Cough Last Admin: 08/09/17 16:08 Dose: 10 ml Meropenem/Sodium Chloride (Meropenem 1g/Ns 100ml Ivpb) 1 gm in 100 mls @ 100 mls/hr IVPB Q8 [facility] PRN Reason: Protocol Stop: 08/16/17 06:01 Last Admin: 08/09/17 13:08 Dose: 100 mls/hr Potassium Chloride (Potassium Chloride 10 Meq/100 Ml) 10 meq in 100 mls @ 50 mls/hr IVPB Q2H [facility] Stop: 08/09/17 18:59 Last Admin: 08/09/17 16:07 Dose: 50 mls/hr Levalbuterol HCl (Xopenex) 0.63 mg IH TIDRESP [facility] Last Admin: 08/09/17 13:47 Dose: 0.63 mg Magnesium Oxide (Mag-Ox) 400 mg PO BID [facility] Last Admin: 08/09/17 17:11 Dose: 400 mg Morphine Sulfate (Morphine) 2 mg IVP Q3 PRN PRN Reason: Pain, moderate (4-7) Last Admin: 08/09/17 12:51 Dose: 2 mg Mupirocin (Bactroban Ointment) 1 gm TOP BID [facility] Last Admin: 08/09/17 17:12 Dose: Not Given Glatiramer Acetate [ (Copaxone] 40 Mg) 40 mg SQ MWF [facility] Last Admin: 08/09/17 09:38 Dose: Not Given Tapentadol Hcl [ (Nucynta] 100 Mg) 100 mg PO TID [facility] Last Admin: 08/09/17 17:12 Dose: Not Given Tapentadol Hcl [ (Nucynta Er] 150 Mg) 150 mg PO Q12H [facility] Last Admin: 08/09/17 17:12 Dose: Not Given Nystatin (Nystatin Oral Susp) 5 ml PO 5XD [facility] Last Admin: 08/09/17 17:11 Dose: 5 ml Ondansetron HCl (Zofran Inj) 4 mg IVP Q6H PRN PRN Reason: Nausea/Vomiting Last Admin: 08/08/17 09:07 Dose: 4 mg Polyethylene Glycol (Miralax) 17 gm PO DAILY [facility] Last Admin: 08/09/17 09:36 Dose: 17 gm Potassium Phos/Sodium Phos (Neutra-Phos) 1 pkt PO BID [facility] Stop: 08/10/17 18:01 Last Admin: 08/09/17 17:11 Dose: 1 pkt Sucralfate (Carafate Oral Susp) 1 gm PO TID [facility] Last Admin: 08/09/17 17:11 Dose: 1 gm - Labs Labs: 08/09/17 08:45 08/09/17 08:45 PT 13.4 SECONDS (9.4-12.5) H 08/06/17 15:30 INR 1.17 (0.93-1.08) H 08/06/17 15:30 APTT 46.9 Seconds (25.1-36.5) H 08/06/17 15:30 - Constitutional Appears: Chronically Ill - Head Exam Head Exam: ATRAUMATIC, NORMAL INSPECTION, NORMOCEPHALIC - Eye Exam Eye Exam: Normal appearance Pupil Exam: NORMAL ACCOMODATION - ENT Exam ENT Exam: Mucous Membranes Moist, Normal Exam - Neck Exam Neck Exam: Normal Inspection - Respiratory Exam Respiratory Exam: Clear to Ausculation Bilateral, NORMAL BREATHING PATTERN - Cardiovascular Exam Cardiovascular Exam: REGULAR RHYTHM, +S1, +S2 - GI/Abdominal Exam GI & Abdominal Exam: Soft, Normal Bowel Sounds - Extremities Exam Extremities Exam: Normal Inspection - Back Exam Back Exam: NORMAL INSPECTION - Neurological Exam Neurological Exam: Alert, Awake, CN II-XII Intact, Oriented x3 - Skin Skin Exam: Pallor, Warm Assessment and Plan - Assessment and Plan (Free Text) Assessment: 1. Stage IV ovarian cancer. Bladder cancer. s/p first cycle of chem- carbo/gemzar. 2. Pancytopenia : on granix 480 daily. continue same. 2 units of PRBC today 3. Urosepsis : on iv antibiotics. 4. Renal functions normal. 5. Epigastric pain chronic. sucralfate QID. continue protonix. DC neutopenic isolation. ANC improved 650.
--- NOTE | 2017-08-09 20:04 | PN ---
DATE: SUBJECTIVE: Patient is 62 years old, with complaint of cough and congestion, complaint of having nausea, complaint of having swelling in the perineal region, feel uncomfortable. Otherwise, no fever, no chills. PHYSICAL EXAMINATION: VITAL SIGNS: Temperature of 99.4, pulse 95, respirations 20, blood pressure 122/78. LUNGS: Bilateral fair airflow. No rhonchi or crackle. HEART: S1 and S2 audible. ABDOMEN: Soft. She has fullness in her perineal region, slightly tender. Her conduit is having clear urine. EXTREMITIES: She has ulcer on her left kyle, seems to be granulating. NEUROLOGIC: She is awake and alert, able to communicate. LABORATORY DATA: WBC is 1.4, hemoglobin 9.5, hematocrit 29.3, platelet 46. Chemistry: Sodium 142, potassium 3.3, chloride 106, CO2 of 28, BUN 13, creatinine 0.8, blood sugar of 82. Her AST 39, ALT 110. Uric acid is 3.9. ASSESSMENT: 1. Escherichia coli sepsis, status post ileal conduit formation. 2. Metastatic ovarian cancer, status post chemotherapy. Second round was last week. 3. History of multiple sclerosis. 4. History of defibrillator placement. 5. Cardiomyopathy. 6. Hypokalemia. PLAN: I will request Dr. Navarro to evaluate patient for perineal fullness. She might need aspiration. We will continue her on current antibiotics. Repeat blood culture also. Currently patient is on meropenem and vancomycin and give her Zofran as needed. We will follow up this patient. Kimberley Hernadez MD
--- NOTE | 2017-08-09 22:41 | PN ---
DATE: 08/09/2017 SUBJECTIVE: Patient is seen in bed, in no acute distress, nontoxic. PHYSICAL EXAMINATION: VITAL SIGNS: Temperature is 98, blood pressure is 140/90, respiratory rate of 20, heart rate of 99. HEENT: Unremarkable. NECK: Supple. LUNGS: Have decreased breath sounds. HEART: Normal S1 and S2. ABDOMEN: Soft, nontender. LABORATORY DATA: Reveals a white count of 1.4, hemoglobin of 9, platelets of 46. Chemistries reveals a BUN of 13, creatinine of 0.8, procalcitonin is 0.98. Urinalysis is noted and serology is noted. Microbiology reveals blood cultures are positive for E. coli. Urine cultures, multiple species. The E. coli is guardado sensitive and urinalysis is only 2 to 5 wbc. Patient had a CAT scan of the abdomen and pelvis, which is reviewed. Pelvic mass compatible with her ovarian history and minimally increased from previous examination, mild colitis. ASSESSMENT AND PLAN: This is a 62-year-old female seen early this morning in Room 360 with sepsis, febrile neutropenia with Escherichia coli bacteremia, with multiple sclerosis, ovarian cancer, cancer, and pacemaker. Currently on vancomycin and meropenem. Patient's granulocyte count is 370 at this point with 51% lymphocytes 1.4. We will continue the meropenem for now. Waiting for the leukocytosis to improve and we will discontinue the vancomycin. Tyler Anglin MD
[2017-08-10] MEDS: Morphine 2 mg/ml ISec IVP PRN ×6 (01:00→21:16)
[2017-08-10] MEDS: guaiFENesin DM 200 mg-20 mg/10 ml UD PO PRN ×5 (01:08→17:18)
[2017-08-10] MEDS: Meropenem 1g/NS 100mL IVPB 1 GM/100 ML PIGGYBACK IVPB SCH ×3 (05:25→21:15)
[2017-08-10] MEDS: Nystatin 100,000 Units/ml Oral Susp 5 ml UD PO SCH ×5 (05:26→21:16)
[2017-08-10] MEDS: Levalbuterol 0.63 MG/3 ML Inhal Soln UD IH SCH ×3 (07:52→21:30)
[2017-08-10 08:08] LABS: HEMOGLOBIN 9.5 g/dL (12.0-16.0); MEAN CELL VOLUME 91.7 fl (80.0-105.0); MEAN CORPUSCULAR HEMOGLOBIN 29.2 pg (25.0-35.0); MEAN CORPUSCULAR HGB CONC 31.9 g/dl (31.0-37.0); MEAN PLATELET VOLUME 9.8 fl (7.0-11.0); RBC 3.25 10^6/uL (3.5-6.1); RED CELL DISTRIBUTION WIDTH 15.5 % (11.5-14.5)
[2017-08-10 08:18] LABS: WHITE BLOOD COUNT 1.9 10^3/ul (4.5-11.0)
[2017-08-10 08:31] LABS: ALBUMIN 2.9 g/dL (3.0-4.8); ALT/SGPT 93 U/L (7-56); AST/SGOT 31 U/L (14-36); BLOOD UREA NITROGEN 11 mg/dL (7-21); CALCIUM 9.5 mg/dL (8.4-10.5); GFR AFRICAN-AMERICAN > 60; GFR NON-AFRICAN AMERICAN > 60
[2017-08-10] MEDS: Enoxaparin 30 mg Syringe SC SCH (09:06)
[2017-08-10] MEDS: POLYETHYLENE GLYCOL 3350 17 GM/Dose PACKET PO SCH (09:07)
[2017-08-10] MEDS: Magnesium Oxide 400 mg Tab UD PO SCH ×2 (09:07→17:19)
[2017-08-10] MEDS: Potassium & Sodium Phosphate PO SCH ×2 (09:07→17:19)
[2017-08-10] MEDS: Sucralfate 1 gm/10 ml Oral Susp UD PO SCH ×3 (09:08→17:18)
--- NOTE | 2017-08-10 12:48 | CP.PCM.PN ---
<Christopher Fay - Last Filed: 08/10/17 15:03> Subjective - Date & Time of Evaluation Date of Evaluation: 08/10/17 Time of Evaluation: 12:48 - Subjective Subjective: Podiatry Progress Note - Dr. Rosales 62 year old female patient was seen and evaluated at bedside for left leg wounds. No acute events overnight. Admits to itchiness to proximal left leg wound. No other lower extremity complaints. Dressings clean/dry/intact with no strikethrough noted. GRAEME hosmarty present. Denies N/V/F/D/C/SOB/calf pain. Objective - Vital Signs/Intake and Output Vital Signs (last 24 hours): Temp Pulse Resp BP Pulse Ox 99.0 F 92 H 22 132/92 H 100 08/10/17 06:00 08/10/17 06:00 08/10/17 06:00 08/10/17 06:00 08/10/17 06:00 Intake and Output: 08/10/17 08/10/17 06:59 18:59 Intake Total 540 240 Output Total 200 500 Balance 340 -260 - Medications Medications: Current Medications Acetaminophen (Tylenol 325mg Tab) 650 mg PO Q4 PRN PRN Reason: Fever >100.4 F Last Admin: 08/10/17 01:01 Dose: 650 mg Colchicine (Colocrys) 0.6 mg PO BID [facility] Last Admin: 08/10/17 09:07 Dose: 0.6 mg Enoxaparin Sodium (Lovenox) 30 mg SC DAILY [facility] PRN Reason: Protocol Last Admin: 08/10/17 09:06 Dose: 30 mg Fluconazole (Diflucan) 200 mg PO DAILY [facility] PRN Reason: Protocol Last Admin: 08/10/17 09:07 Dose: 200 mg Guaifenesin/Dextromethorphan (Robitussin Dm) 10 ml PO Q4H PRN PRN Reason: Cough Last Admin: 08/10/17 09:07 Dose: 10 ml Meropenem/Sodium Chloride (Meropenem 1g/Ns 100ml Ivpb) 1 gm in 100 mls @ 100 mls/hr IVPB Q8 [facility] PRN Reason: Protocol Stop: 08/16/17 06:01 Last Admin: 08/10/17 05:25 Dose: 100 mls/hr Levalbuterol HCl (Xopenex) 0.63 mg IH TIDRESP [facility] Last Admin: 08/10/17 07:52 Dose: 0.63 mg Magnesium Oxide (Mag-Ox) 400 mg PO BID [facility] Last Admin: 08/10/17 09:07 Dose: 400 mg Morphine Sulfate (Morphine) 2 mg IVP Q3 PRN PRN Reason: Pain, moderate (4-7) Last Admin: 08/10/17 09:06 Dose: 2 mg Mupirocin (Bactroban Ointment) 1 gm TOP BID [facility] Last Admin: 08/10/17 09:07 Dose: Not Given Glatiramer Acetate [ (Copaxone] 40 Mg) 40 mg SQ MWF [facility] Last Admin: 08/09/17 09:38 Dose: Not Given Tapentadol Hcl [ (Nucynta] 100 Mg) 100 mg PO TID [facility] Last Admin: 08/10/17 09:08 Dose: Not Given Tapentadol Hcl [ (Nucynta Er] 150 Mg) 150 mg PO Q12H [facility] Last Admin: 08/10/17 05:26 Dose: Not Given Nystatin (Nystatin Oral Susp) 5 ml PO 5XD [facility] Last Admin: 08/10/17 09:07 Dose: 5 ml Ondansetron HCl (Zofran Inj) 4 mg IVP Q6H PRN PRN Reason: Nausea/Vomiting Last Admin: 08/09/17 21:52 Dose: 4 mg Polyethylene Glycol (Miralax) 17 gm PO DAILY [facility] Last Admin: 08/10/17 09:07 Dose: 17 gm Potassium Phos/Sodium Phos (Neutra-Phos) 1 pkt PO BID [facility] Stop: 08/10/17 18:01 Last Admin: 08/10/17 09:07 Dose: 1 pkt Sucralfate (Carafate Oral Susp) 1 gm PO TID [facility] Last Admin: 08/10/17 09:08 Dose: 1 gm - Labs Labs: 08/10/17 08:00 08/10/17 08:00 PT 13.4 SECONDS (9.4-12.5) H 08/06/17 15:30 INR 1.17 (0.93-1.08) H 08/06/17 15:30 APTT 46.9 Seconds (25.1-36.5) H 08/06/17 15:30 - Constitutional Appears: Well, Non-toxic, No Acute Distress - Extremities Exam Additional comments: Bilateral LE exam: VASC: DP/PT pulses are palpable 1/4, Cap refill time: < 3 sec to all digits, Temp gradient: warm to cool from proximal to distal, +1 pitting edema noted on the distal leg and dorsum of the foot on the left DERM: 2 wounds present on the distal medial leg and one on the distal anterior aspect. Proximal wound measures approx 0.8cm x 0.5cm x 0.1cm, distal medial wound measures approx. 0.5cm x 0.5cm x 0.1 cm, distal anterior wound is fairly healed. All wound beds are grannular with approx 15% fibrotic island in the center, no tunneling, no undermining, no active discharge, no malodor, no dejah- wound erythema, no clinical suspicion of active infection at this time NEURO: Protective sensation grossly intact ORTHO: no pain on palpation of the wound, MMT: 5/5 in all 4 compartment - Neurological Exam Neurological Exam: Alert, Awake, Oriented x3 - Psychiatric Exam Psychiatric exam: Normal Affect, Normal Mood Assessment and Plan - Assessment and Plan (Free Text) Assessment: 62 year old female patient with LLE wounds, noninfected Plan: Patient seen and evaluated at bedside with attending, Dr. Rosales Afebrile, WBC 1.9 - neutropenic precautions Continue abx per ID - Meropenem Wounds appear to be stable at this time Wounds cleansed with sterile saline, bactroban applied to wounds, and dressed with 4x4, medipore gauze, and GRAEME hose Stable from podiatry standpoint Patient may follow up at wound care center once discharged Podiatry to follow patient while in-house <Josefina Rosales - Last Filed: 08/13/17 15:31> Objective - Vital Signs/Intake and Output Vital Signs (last 24 hours): Temp Pulse Resp BP Pulse Ox 98.1 F 98 H 20 136/88 98 08/13/17 06:00 08/13/17 10:41 08/13/17 06:00 08/13/17 10:43 08/13/17 06:00 Intake and Output: 08/13/17 08/13/17 06:59 18:59 Intake Total 420 Output Total 800 Balance -380 - Medications Medications: Current Medications Acetaminophen (Tylenol 325mg Tab) 650 mg PO Q4 PRN PRN Reason: Fever >100.4 F Last Admin: 08/12/17 06:04 Dose: 650 mg Atenolol (Tenormin) 25 mg PO DAILY [facility] Last Admin: 08/13/17 10:46 Dose: Not Given Benzonatate (Tessalon Perles) 100 mg PO TID [facility] Last Admin: 08/13/17 13:54 Dose: 100 mg Enoxaparin Sodium (Lovenox) 70 mg SC BID [facility] PRN Reason: Protocol Last Admin: 08/13/17 10:42 Dose: 70 mg Fluticasone Propionate (Flonase) 1 actuation NS DAILY [facility] Last Admin: 08/13/17 10:43 Dose: 1 spr Furosemide (Lasix) 40 mg IVP DAILY [facility] Last Admin: 08/13/17 10:43 Dose: 40 mg Vancomycin HCl (Vancomycin 1gm) 1 gm in 250 mls @ 167 mls/hr IVPB Q12H [facility] PRN Reason: Protocol Stop: 08/26/17 10:16 Last Admin: 08/13/17 10:48 Dose: 167 mls/hr Meropenem/Sodium Chloride (Meropenem 1g/Ns 100ml Ivpb) 1 gm in 100 mls @ 100 mls/hr IVPB Q8 [facility] PRN Reason: Protocol Stop: 08/21/17 14:01 Last Admin: 08/13/17 13:54 Dose: 100 mls/hr Levalbuterol HCl (Xopenex) 0.63 mg IH TIDRESP [facility] Last Admin: 08/13/17 14:11 Dose: 0.63 mg Lidocaine/Prilocaine (Emla) 0 gm TOP TID PRN PRN Reason: Pain, Mild (1-3) Last Admin: 08/12/17 01:43 Dose: 1 applic Magnesium Oxide (Mag-Ox) 400 mg PO BID [facility] Last Admin: 08/13/17 10:41 Dose: 400 mg Methylprednisolone (Solu-Medrol) 40 mg IV Q12 [facility] Last Admin: 08/13/17 10:39 Dose: 40 mg Morphine Sulfate (Morphine) 4 mg IV Q4H PRN PRN Reason: Pain, moderate (4-7) Last Admin: 08/13/17 14:20 Dose: 4 mg Mupirocin (Bactroban Ointment) 1 gm TOP BID [facility] Last Admin: 08/13/17 10:59 Dose: Not Given Glatiramer Acetate [ (Copaxone] 40 Mg) 40 mg SQ MWF [facility] Last Admin: 08/11/17 11:03 Dose: Not Given Tapentadol Hcl [ (Nucynta] 100 Mg) 100 mg PO TID [facility] Last Admin: 08/13/17 13:56 Dose: Not Given Tapentadol Hcl [ (Nucynta Er] 150 Mg) 150 mg PO Q12H [facility] Last Admin: 08/12/17 17:24 Dose: Not Given Nystatin (Nystatin Oral Susp) 5 ml PO 5XD [facility] Last Admin: 08/13/17 13:54 Dose: 5 ml Ondansetron HCl (Zofran Inj) 4 mg IVP Q6H PRN PRN Reason: Nausea/Vomiting Last Admin: 08/09/17 21:52 Dose: 4 mg Polyethylene Glycol (Miralax) 17 gm PO DAILY [facility] Last Admin: 08/13/17 10:39 Dose: 17 gm Sucralfate (Carafate Oral Susp) 1 gm PO TID [facility] Last Admin: 08/13/17 13:54 Dose: 1 gm - Labs Labs: 08/13/17 07:00 08/13/17 07:00 PT 13.4 SECONDS (9.4-12.5) H 08/06/17 15:30 INR 1.17 (0.93-1.08) H 08/06/17 15:30 APTT 46.9 Seconds (25.1-36.5) H 08/06/17 15:30 Attending/Attestation - Attestation I have personally seen and examined this patient.: Yes I have fully participated in the care of the patient.: Yes I have reviewed all pertinent clinical information, including history, physical exam and plan: Yes
[2017-08-10] MEDS: Fluticasone Nasal 50 mcg/Spray NS SCH (18:21)
[2017-08-10] MEDS: MethylPREDNISolone 40 mg Vial IV SCH (21:16)
--- NOTE | 2017-08-10 23:46 | PN ---
DATE: SUBJECTIVE: The patient is 62-year-old, seen and examined, complained of cough and congestion, dry cough. Denies any nausea or vomiting. Eating fair. PHYSICAL EXAMINATION: VITAL SIGNS: She is afebrile, pulse rate of 108, respirations 21, blood pressure 127/83. HEENT: Bilateral fair air flow. No rhonchi or crackle. HEART: S1 and S2 audible. ABDOMEN: Soft, nontender. No rebound, no guarding. NEUROLOGICAL: The patient is awake and alert, able to communicate. Left kyle, she has granulating ulcers . LABORATORY DATA: WBC is 1.9, hemoglobin 9.5, hematocrit 29.8, platelets of 47. Chemistry: Sodium 140, potassium 3.5, chloride 103, CO2 of 30, BUN 11, creatinine 0.7, blood sugar of 79. . Procalcitonin is 0.98. ASSESSMENT: 1. Escherichia coli sepsis, one blood culture positive. 2. Metastatic ovarian cancer. 3. History of bladder cancer status post cystectomy and ileal conduit formation. 4. Multiple sclerosis. PLAN: I will order for Flonase, she is already getting Xopenex. I will start a small dose of Solu-Medrol, and start her on Tessalon Perles, and we will revaluate. Kimberley Hernadez MD
[2017-08-11] MEDS: Morphine 2 mg/ml ISec IVP PRN (02:50)
--- NOTE | 2017-08-11 02:53 | PN ---
DATE: 08/10/2017 SUBJECTIVE: The patient is seen early this morning in room 360. The patient is comfortable and in no acute distress, nontoxic. PHYSICAL EXAMINATION: VITAL SIGNS: Temperature is 99, blood pressure is 120/80, respiratory rate of 21, heart rate of 108. HEENT: Unremarkable. NECK: Supple. LUNGS: Decreased breath sounds. HEART: Normal S1, S2. ABDOMEN: Soft. LABORATORY DATA: Reveals a white count of 1.9, hemoglobin 9, platelets of 47. Chemistries reveals the BUN of 11, creatinine 0.7, and procalcitonin 0.98. Urinalysis is noted, and microbiology revealed E. coli in blood from 08/06/2017. E. coli in the blood is pansensitive. The patient also has a gram-positive cocci from the left leg culture, and review of orders revealed the patient to be on meropenem. The patient is also on Solu-Medrol. ASSESSMENT AND PLAN: This is a 62-year-old female who is seen earlier this morning with sepsis with febrile neutropenia and Escherichia coli bacteremia, multiple sclerosis, ovarian cancer, has a pacemaker, on meropenem. We will check on the identification of the gram-positive cocci in the leg, and vancomycin is continued. The patient's white count is improved now, today is up to 1.9, although the patient has 26% granulocytosis, but last absolute granulocyte count was 370. We will continue to follow with you, on meropenem. Tyler Anglin MD
[2017-08-11] MEDS: Meropenem 1g/NS 100mL IVPB 1 GM/100 ML PIGGYBACK IVPB SCH ×3 (06:08→22:30)
[2017-08-11] MEDS: Nystatin 100,000 Units/ml Oral Susp 5 ml UD PO SCH ×5 (06:09→22:30)
[2017-08-11] MEDS: Levalbuterol 0.63 MG/3 ML Inhal Soln UD IH SCH ×3 (07:44→19:54)
[2017-08-11] MEDS: Sucralfate 1 gm/10 ml Oral Susp UD PO SCH ×3 (08:59→18:07)
[2017-08-11] MEDS: Enoxaparin 30 mg Syringe SC SCH (09:00)
[2017-08-11] MEDS: POLYETHYLENE GLYCOL 3350 17 GM/Dose PACKET PO SCH (09:01)
[2017-08-11] MEDS: Magnesium Oxide 400 mg Tab UD PO SCH ×2 (09:01→18:08)
[2017-08-11] MEDS: MethylPREDNISolone 40 mg Vial IV SCH ×2 (09:01→22:30)
[2017-08-11] MEDS: Fluticasone Nasal 50 mcg/Spray NS SCH (11:12)
--- NOTE | 2017-08-11 11:32 | CP.PCM.PN ---
Subjective - Date & Time of Evaluation Date of Evaluation: 08/10/17 Time of Evaluation: 09:00 - Subjective Subjective: Comfortable, sitting on chair. C/O of SOB. stating did not sleep in night. Blood counts improved. Ambulating in room. Abdominal pain improved. Objective - Vital Signs/Intake and Output Vital Signs (last 24 hours): Temp Pulse Resp BP Pulse Ox 98.2 F 104 H 20 121/77 97 08/11/17 06:00 08/11/17 06:00 08/11/17 06:00 08/11/17 06:00 08/11/17 06:00 Intake and Output: 08/11/17 08/11/17 06:59 18:59 Intake Total 300 420 Output Total 550 Balance 300 -130 - Medications Medications: Current Medications Acetaminophen (Tylenol 325mg Tab) 650 mg PO Q4 PRN PRN Reason: Fever >100.4 F Last Admin: 08/10/17 01:01 Dose: 650 mg Benzonatate (Tessalon Perles) 100 mg PO TID [facility] Last Admin: 08/11/17 09:03 Dose: 100 mg Colchicine (Colocrys) 0.6 mg PO BID [facility] Last Admin: 08/11/17 09:00 Dose: 0.6 mg Enoxaparin Sodium (Lovenox) 30 mg SC DAILY [facility] PRN Reason: Protocol Last Admin: 08/11/17 09:00 Dose: 30 mg Fluconazole (Diflucan) 200 mg PO DAILY [facility] PRN Reason: Protocol Last Admin: 08/11/17 09:00 Dose: 200 mg Fluticasone Propionate (Flonase) 1 actuation NS DAILY [facility] Last Admin: 08/11/17 11:12 Dose: 1 applic Meropenem/Sodium Chloride (Meropenem 1g/Ns 100ml Ivpb) 1 gm in 100 mls @ 100 mls/hr IVPB Q8 [facility] PRN Reason: Protocol Stop: 08/16/17 06:01 Last Admin: 08/11/17 06:08 Dose: 100 mls/hr Levalbuterol HCl (Xopenex) 0.63 mg IH TIDRESP [facility] Last Admin: 08/11/17 07:44 Dose: 0.63 mg Magnesium Oxide (Mag-Ox) 400 mg PO BID [facility] Last Admin: 08/11/17 09:01 Dose: 400 mg Methylprednisolone (Solu-Medrol) 40 mg IV Q12 [facility] Last Admin: 08/11/17 09:01 Dose: 40 mg Mupirocin (Bactroban Ointment) 1 gm TOP BID [facility] Last Admin: 08/11/17 08:59 Dose: Not Given Glatiramer Acetate [ (Copaxone] 40 Mg) 40 mg SQ MWF [facility] Last Admin: 08/11/17 11:03 Dose: Not Given Tapentadol Hcl [ (Nucynta] 100 Mg) 100 mg PO TID [facility] Last Admin: 08/11/17 09:02 Dose: Not Given Tapentadol Hcl [ (Nucynta Er] 150 Mg) 150 mg PO Q12H [facility] Last Admin: 08/11/17 06:09 Dose: Not Given Nystatin (Nystatin Oral Susp) 5 ml PO 5XD [facility] Last Admin: 08/11/17 09:01 Dose: 5 ml Ondansetron HCl (Zofran Inj) 4 mg IVP Q6H PRN PRN Reason: Nausea/Vomiting Last Admin: 08/09/17 21:52 Dose: 4 mg Polyethylene Glycol (Miralax) 17 gm PO DAILY [facility] Last Admin: 08/11/17 09:01 Dose: 17 gm Sucralfate (Carafate Oral Susp) 1 gm PO TID [facility] Last Admin: 08/11/17 08:59 Dose: 1 gm - Labs Labs: 08/10/17 08:00 08/10/17 08:00 PT 13.4 SECONDS (9.4-12.5) H 08/06/17 15:30 INR 1.17 (0.93-1.08) H 08/06/17 15:30 APTT 46.9 Seconds (25.1-36.5) H 08/06/17 15:30 - Constitutional Appears: Chronically Ill - Head Exam Head Exam: ATRAUMATIC, NORMAL INSPECTION, NORMOCEPHALIC - Eye Exam Eye Exam: Normal appearance - ENT Exam ENT Exam: Mucous Membranes Moist, Normal Exam - Neck Exam Neck Exam: Normal Inspection - Respiratory Exam Respiratory Exam: Clear to Ausculation Bilateral, NORMAL BREATHING PATTERN - Cardiovascular Exam Cardiovascular Exam: REGULAR RHYTHM, +S1, +S2 - GI/Abdominal Exam GI & Abdominal Exam: Soft, Normal Bowel Sounds - Extremities Exam Extremities Exam: Normal Inspection - Back Exam Back Exam: NORMAL INSPECTION - Neurological Exam Neurological Exam: Alert, CN II-XII Intact, Normal Gait, Oriented x3 - Skin Skin Exam: Normal Color, Warm Assessment and Plan - Assessment and Plan (Free Text) Assessment: 1. Stage IV ovarian cancer, bladder cancer. On chemo. 2. Chemo induced pancytopenia. On Granix. Blood counts improving. 3. Uro sepsis : on IV antibiotics. 4. Renal : normal renal functions. 5. Mouth care to continue. Nystatin mouth washes, Diflucan. 6. DVT prophylaxis with lovenox [address] Hernadez for allowing us to participate in her care.
[2017-08-11] MEDS: Oxycodone/Acetaminophen 5/325 mg Tab PO PRN ×2 (13:28→19:46)
--- NOTE | 2017-08-11 15:02 | PN ---
DATE: 08/11/2017 SUBJECTIVE: This is a 62-year-old female seen for followup of left leg wound. The patient is seen at bedside. She is comfortable and states that she is feeling a little better. PHYSICAL EXAMINATION: VITAL SIGNS: Reviewed. Her temperature is 98.2, the pulse is 104, blood pressure is 121/77 and respirations are 20. EXTREMITIES: The patient's lower extremities were evaluated. Her neurovascular status is unchanged. She does have palpable pedal pulses. She has two wounds on her left lower leg, which have been healing. At this time, there is no infection in the wounds. The wounds are clean and dry with granulation tissue. No sinus tracts or undermining is noted. LABORATORY DATA: The patient's labs were noted with white blood cell count of 1.9. She is on leukopenia precautions. Her H and H is 9.5 and 29.8 and her platelets are 47. The patient's chemistry shows BUN and creatinine of 11 and 0.7, the glucose is 76. Her total protein and albumin are low. She is presently on a restricted diet. ASSESSMENT: Stage III ulcerations, improving. Plan of treatment is SILVERCEL was placed on the patient's wounds. They can stay in place for 48 hours. The patient will be seen and followed. I did leave a piece of the residual portion of the SILVERCEL dressing at bedside in case the dressing becomes dislodged before we come back to change it on Monday. Josefina Rosales DPM
--- NOTE | 2017-08-11 16:39 | CP.PCM.PCO ---
Physician Communication Note - Physician Communication Note Physician Communication Note: Vulvar Edema due to OvaryCa(CA125 Now 1/2): Topical Rx only!
[2017-08-11 17:16] LABS: HEMOGLOBIN 10.2 g/dL (12.0-16.0); MEAN CELL VOLUME 92.1 fl (80.0-105.0); MEAN CORPUSCULAR HEMOGLOBIN 29.9 pg (25.0-35.0); MEAN CORPUSCULAR HGB CONC 32.5 g/dl (31.0-37.0); MEAN PLATELET VOLUME 11.2 fl (7.0-11.0); RBC 3.41 10^6/uL (3.5-6.1); RED CELL DISTRIBUTION WIDTH 15.9 % (11.5-14.5); WHITE BLOOD COUNT 14.6 10^3/ul (4.5-11.0)
--- NOTE | 2017-08-11 21:20 | PN ---
DATE: 08/11/2017 SUBJECTIVE: The patient is seen earlier this morning in room 360, bed 2. The patient had an uneventful night. She appears comfortable. She did have low grade fevers. PHYSICAL EXAMINATION: VITAL SIGNS: Temperature is 98, blood pressure is 120/70, respiratory rate of 16. HEENT: Unremarkable. NECK: Supple. LUNGS: Have decreased breath sounds. HEART: Normal S1, S2. ABDOMEN: Soft, nontender. LABORATORY DATA: Reveals a white count as noted. The blood culture on admission is E. coli that is pansensitive in one bottle, and the urine culture is mixed organism. The left leg culture is gram-positive cocci. Dr. Rosales's note is reviewed. ASSESSMENT AND PLAN: This is a 62-year-old female seen in room 360, bed 2, earlier, who was admitted with sepsis with febrile neutropenia, Escherichia coli bacteremia, multiple sclerosis, ovarian cancer, pacemaker, and on meropenem. She had a gram-positive cocci from the leg. The patient's white count is up to 1.9 yesterday, and 26% granulocytosis on the . The patient has been placed on fluconazole by Dr. Lake. Currently on meropenem. We will renew the meropenem, which is required for removal, and continue the present course. We will check on the CBC in a.m. Tyler Anglin MD
--- NOTE | 2017-08-11 23:57 | PN ---
DATE: SUBJECTIVE: The patient is a 62-year-old, seen and examined, complained of pain in the back, complained of abdominal pain. Has bowel movement. No nausea or vomiting. Still complained of cough. PHYSICAL EXAMINATION VITAL SIGNS: She has temperature of 98.2, pulse 104, respirations 20, blood pressure 121/77. LUNGS: Bilateral fair airflow. No rhonchi or crackle. HEART: S1 and S2 audible. ABDOMEN: Soft. Slight epigastric discomfort. Ileal conduit is functioning. Has no hematuria. She has some perineal fullness, but no fluctuation or redness. LABORATORY DATA: WBC is 14.6, hemoglobin 10.2, hematocrit 31.4, platelets 79. Chemistry: Sodium 140, potassium 3.5, chloride 103, CO2 of 30, BUN 11, creatinine 0.7, blood sugar of 79, had BNP 17,200 and CA-125 is 520. ASSESSMENT: 1. Pancytopenia, improving. 2. Metastatic ovarian cancer. 3. Left leg ulcer secondary to chemotherapy. 4. Constipation. 5. Asthmatic bronchitis. 6. Bladder cancer, status post ileal conduit formation. PLAN: We will discontinue Neupogen. Continue nebulizer treatment, oral antitussive. We will continue IV steroid and we will follow up this patient in the a.m. Kimberley Hernadez MD
[2017-08-12] MEDS: Lidocaine/Prilocaine 2.5%-2.5% Cream(30 gm) TOP PRN (01:43)
[2017-08-12] MEDS ORDERED: Levalbuterol 0.63 MG/3 ML Inhal Soln UD IH STA (03:28)
[2017-08-12] MEDS: Nystatin 100,000 Units/ml Oral Susp 5 ml UD PO SCH ×5 (05:57→21:42)
[2017-08-12] MEDS: Meropenem 1g/NS 100mL IVPB 1 GM/100 ML PIGGYBACK IVPB SCH ×3 (05:57→21:39)
[2017-08-12] MEDS: Levalbuterol 0.63 MG/3 ML Inhal Soln UD IH SCH ×3 (08:14→19:32)
--- NOTE | 2017-08-12 08:48 | RAD ---
HISTORY: shortness of breath COMPARISON: 08/06/2017 TECHNIQUE: Chest PA and lateral FINDINGS: LUNGS: New right lower lobe opacity. Possible pneumonia. No abnormal left-sided opacity. Diffuse interstitial prominence, nonspecific. PLEURA: Small bilateral pleural effusion, right greater than left. No pneumothorax. CARDIOVASCULAR: Normal heart size. AICD. Congestive change. Right central venous infusion port. OSSEOUS STRUCTURES: No significant abnormalities. VISUALIZED UPPER ABDOMEN: Normal. OTHER FINDINGS: None. IMPRESSION: Right lower lobe opacity with congestive change and small pleural effusions. Possible pulmonary edema. Possible right lower lobe pneumonia. Please correlate.
[2017-08-12] MEDS: Magnesium Oxide 400 mg Tab UD PO SCH ×2 (10:31→17:56)
[2017-08-12] MEDS: Enoxaparin 30 mg Syringe SC SCH (10:32)
[2017-08-12] MEDS: POLYETHYLENE GLYCOL 3350 17 GM/Dose PACKET PO SCH (10:32)
[2017-08-12] MEDS: Sucralfate 1 gm/10 ml Oral Susp UD PO SCH ×3 (10:32→17:56)
[2017-08-12] MEDS: MethylPREDNISolone 40 mg Vial IV SCH ×2 (10:32→21:43)
[2017-08-12] MEDS: Vancomycin 1gm in NS 250ml 1 GM/250 ML BAG IVPB SCH ×2 (10:35→23:03)
[2017-08-12] MEDS: Fluticasone Nasal 50 mcg/Spray NS SCH (10:36)
--- NOTE | 2017-08-12 11:11 | CP.PCM.PN ---
<Christopher Fay - Last Filed: 08/12/17 12:08> Subjective - Date & Time of Evaluation Date of Evaluation: 08/12/17 Time of Evaluation: 11:11 - Subjective Subjective: Podiatry Progress Note - Dr. Rosales 62 year old female patient was seen and evaluated at bedside for left leg wounds. Patient reports no complaints to wounds today, however endorses bilateral leg pain. Admits to SOB which began overnight. Patient coughing heavily, unable to speak in complete sentences. Denies nausea, vomiting, fever, chills. Objective - Vital Signs/Intake and Output Vital Signs (last 24 hours): Temp Pulse Resp BP Pulse Ox 98.7 F 109 H 20 127/82 98 08/11/17 16:00 08/11/17 16:00 08/11/17 16:00 08/11/17 16:00 08/11/17 16:00 Intake and Output: 08/12/17 08/12/17 06:59 18:59 Intake Total 1140 Output Total 850 Balance 290 - Medications Medications: Current Medications Acetaminophen (Tylenol 325mg Tab) 650 mg PO Q4 PRN PRN Reason: Fever >100.4 F Last Admin: 08/12/17 06:04 Dose: 650 mg Benzonatate (Tessalon Perles) 100 mg PO TID [facility] Last Admin: 08/12/17 10:31 Dose: 100 mg Enoxaparin Sodium (Lovenox) 30 mg SC DAILY [facility] PRN Reason: Protocol Last Admin: 08/12/17 10:32 Dose: 30 mg Fluconazole (Diflucan) 200 mg PO DAILY [facility] PRN Reason: Protocol Last Admin: 08/12/17 10:31 Dose: 200 mg Fluticasone Propionate (Flonase) 1 actuation NS DAILY [facility] Last Admin: 08/12/17 10:36 Dose: 1 spr Vancomycin HCl (Vancomycin 1gm) 1 gm in 250 mls @ 167 mls/hr IVPB Q12H [facility] PRN Reason: Protocol Stop: 08/26/17 10:16 Last Admin: 08/12/17 10:35 Dose: 167 mls/hr Meropenem/Sodium Chloride (Meropenem 1g/Ns 100ml Ivpb) 1 gm in 100 mls @ 100 mls/hr IVPB Q8 [facility] PRN Reason: Protocol Stop: 08/21/17 14:01 Levalbuterol HCl (Xopenex) 0.63 mg IH TIDRESP [facility] Last Admin: 08/12/17 08:14 Dose: 0.63 mg Lidocaine/Prilocaine (Emla) 0 gm TOP TID PRN PRN Reason: Pain, Mild (1-3) Last Admin: 08/12/17 01:43 Dose: 1 applic Magnesium Oxide (Mag-Ox) 400 mg PO BID [facility] Last Admin: 08/12/17 10:31 Dose: 400 mg Methylprednisolone (Solu-Medrol) 40 mg IV Q12 [facility] Last Admin: 08/12/17 10:32 Dose: 40 mg Mupirocin (Bactroban Ointment) 1 gm TOP BID [facility] Last Admin: 08/12/17 10:37 Dose: Not Given Glatiramer Acetate [ (Copaxone] 40 Mg) 40 mg SQ MWF [facility] Last Admin: 08/11/17 11:03 Dose: Not Given Tapentadol Hcl [ (Nucynta] 100 Mg) 100 mg PO TID [facility] Last Admin: 08/12/17 10:33 Dose: Not Given Tapentadol Hcl [ (Nucynta Er] 150 Mg) 150 mg PO Q12H [facility] Last Admin: 08/12/17 05:58 Dose: Not Given Nystatin (Nystatin Oral Susp) 5 ml PO 5XD [facility] Last Admin: 08/12/17 10:32 Dose: 5 ml Ondansetron HCl (Zofran Inj) 4 mg IVP Q6H PRN PRN Reason: Nausea/Vomiting Last Admin: 08/09/17 21:52 Dose: 4 mg Oxycodone/Acetaminophen (Percocet 5/325 Mg Tab) 1 tab PO TID PRN PRN Reason: Pain, moderate (4-7) Stop: 08/14/17 14:01 Last Admin: 08/11/17 19:46 Dose: 1 tab Polyethylene Glycol (Miralax) 17 gm PO DAILY [facility] Last Admin: 08/12/17 10:32 Dose: 17 gm Sucralfate (Carafate Oral Susp) 1 gm PO TID [facility] Last Admin: 08/12/17 10:32 Dose: 1 gm - Labs Labs: 08/11/17 17:00 08/10/17 08:00 PT 13.4 SECONDS (9.4-12.5) H 08/06/17 15:30 INR 1.17 (0.93-1.08) H 08/06/17 15:30 APTT 46.9 Seconds (25.1-36.5) H 08/06/17 15:30 - Constitutional Appears: Well, Non-toxic, No Acute Distress - Extremities Exam Additional comments: Dressings to left leg appear clean/dry/intact with no strikethrough noted. GRAEME Hose present bilaterally No palpable cord present to calf bilaterally. No pain on palpation calf b/l. - Neurological Exam Neurological Exam: Alert, Awake, Oriented x3 Assessment and Plan - Assessment and Plan (Free Text) Assessment: 62 year old female patient with Stage III LLE ulcerations x2, improving Plan: Patient seen and evaluated at bedside with attending, Dr. Rosales Afebrile, WBC 35.2 (yesterday 14.6) Wounds appear to be improving Left leg dressings (silvercel) maintained - plan for change Monday Continue GRAEME Hose Continue abx per ID - Meropenem STAT bilateral venous duplex ordered r/o DVT CXR: small pleural effusions, possible pulmonary edema, possible RLL pneumonia Patient may follow up at wound care center once discharged Podiatry to follow patient while in-house <Josefina Rosales - Last Filed: 08/13/17 15:36> Objective - Vital Signs/Intake and Output Vital Signs (last 24 hours): Temp Pulse Resp BP Pulse Ox 98.1 F 98 H 20 136/88 98 08/13/17 06:00 08/13/17 10:41 08/13/17 06:00 08/13/17 10:43 08/13/17 06:00 Intake and Output: 08/13/17 08/13/17 06:59 18:59 Intake Total 420 Output Total 800 Balance -380 - Medications Medications: Current Medications Acetaminophen (Tylenol 325mg Tab) 650 mg PO Q4 PRN PRN Reason: Fever >100.4 F Last Admin: 08/12/17 06:04 Dose: 650 mg Atenolol (Tenormin) 25 mg PO DAILY [facility] Last Admin: 08/13/17 10:46 Dose: Not Given Benzonatate (Tessalon Perles) 100 mg PO TID [facility] Last Admin: 08/13/17 13:54 Dose: 100 mg Enoxaparin Sodium (Lovenox) 70 mg SC BID [facility] PRN Reason: Protocol Last Admin: 08/13/17 10:42 Dose: 70 mg Fluticasone Propionate (Flonase) 1 actuation NS DAILY [facility] Last Admin: 08/13/17 10:43 Dose: 1 spr Furosemide (Lasix) 40 mg IVP DAILY [facility] Last Admin: 08/13/17 10:43 Dose: 40 mg Vancomycin HCl (Vancomycin 1gm) 1 gm in 250 mls @ 167 mls/hr IVPB Q12H [facility] PRN Reason: Protocol Stop: 08/26/17 10:16 Last Admin: 08/13/17 10:48 Dose: 167 mls/hr Meropenem/Sodium Chloride (Meropenem 1g/Ns 100ml Ivpb) 1 gm in 100 mls @ 100 mls/hr IVPB Q8 [facility] PRN Reason: Protocol Stop: 08/21/17 14:01 Last Admin: 08/13/17 13:54 Dose: 100 mls/hr Levalbuterol HCl (Xopenex) 0.63 mg IH TIDRESP [facility] Last Admin: 08/13/17 14:11 Dose: 0.63 mg Lidocaine/Prilocaine (Emla) 0 gm TOP TID PRN PRN Reason: Pain, Mild (1-3) Last Admin: 08/12/17 01:43 Dose: 1 applic Magnesium Oxide (Mag-Ox) 400 mg PO BID [facility] Last Admin: 08/13/17 10:41 Dose: 400 mg Methylprednisolone (Solu-Medrol) 40 mg IV Q12 [facility] Last Admin: 08/13/17 10:39 Dose: 40 mg Morphine Sulfate (Morphine) 4 mg IV Q4H PRN PRN Reason: Pain, moderate (4-7) Last Admin: 08/13/17 14:20 Dose: 4 mg Mupirocin (Bactroban Ointment) 1 gm TOP BID [facility] Last Admin: 08/13/17 10:59 Dose: Not Given Glatiramer Acetate [ (Copaxone] 40 Mg) 40 mg SQ MWF [facility] Last Admin: 08/11/17 11:03 Dose: Not Given Tapentadol Hcl [ (Nucynta] 100 Mg) 100 mg PO TID [facility] Last Admin: 08/13/17 13:56 Dose: Not Given Tapentadol Hcl [ (Nucynta Er] 150 Mg) 150 mg PO Q12H [facility] Last Admin: 08/12/17 17:24 Dose: Not Given Nystatin (Nystatin Oral Susp) 5 ml PO 5XD [facility] Last Admin: 08/13/17 13:54 Dose: 5 ml Ondansetron HCl (Zofran Inj) 4 mg IVP Q6H PRN PRN Reason: Nausea/Vomiting Last Admin: 08/09/17 21:52 Dose: 4 mg Polyethylene Glycol (Miralax) 17 gm PO DAILY [facility] Last Admin: 08/13/17 10:39 Dose: 17 gm Sucralfate (Carafate Oral Susp) 1 gm PO TID [facility] Last Admin: 08/13/17 13:54 Dose: 1 gm - Labs Labs: 08/13/17 07:00 08/13/17 07:00 PT 13.4 SECONDS (9.4-12.5) H 08/06/17 15:30 INR 1.17 (0.93-1.08) H 08/06/17 15:30 APTT 46.9 Seconds (25.1-36.5) H 08/06/17 15:30 Attending/Attestation - Attestation I have personally seen and examined this patient.: Yes I have fully participated in the care of the patient.: Yes I have reviewed all pertinent clinical information, including history, physical exam and plan: Yes
[2017-08-12 11:21] LABS: HEMOGLOBIN 10.2 g/dL (12.0-16.0); MEAN CELL VOLUME 93.9 fl (80.0-105.0); MEAN CORPUSCULAR HEMOGLOBIN 29.4 pg (25.0-35.0); MEAN CORPUSCULAR HGB CONC 31.3 g/dl (31.0-37.0); MEAN PLATELET VOLUME 10.4 fl (7.0-11.0); RBC 3.47 10^6/uL (3.5-6.1); RED CELL DISTRIBUTION WIDTH 16.3 % (11.5-14.5)
[2017-08-12 11:28] LABS: WHITE BLOOD COUNT 35.2 10^3/ul (4.5-11.0)
[2017-08-12 11:33] LABS: ALB/GLOB RATIO 1.1 (1.1-1.8); ALBUMIN 3.4 g/dL (3.0-4.8); ALT/SGPT 140 U/L (7-56); AST/SGOT 79 U/L (14-36); BLOOD UREA NITROGEN 24 mg/dL (7-21); GFR AFRICAN-AMERICAN > 60; GFR NON-AFRICAN AMERICAN > 60
[2017-08-12 11:51] LABS: URINE BILIRUBIN NEGATIVE (NEGATIVE); URINE BLOOD LARGE (NEGATIVE); URINE GLUCOSE (UA) NEGATIVE (NEGATIVE); URINE LEUKOCYTE ESTERASE NEGATIVE Leu/uL (NEGATIVE); URINE NITRATE NEGATIVE (NEGATIVE); URINE PROTEIN TRACE mg/dL (<30 mg/dL); URINE UROBILINOGEN 0.2 E.U./dL (<1 E.U./dL)
[2017-08-12 11:55] LABS: URINE APPEARANCE SLIGHT-CLOUDY (CLEAR); URINE COLOR LIGHT YELLOW (YELLOW)
--- NOTE | 2017-08-12 12:35 | PN ---
DATE: 08/12/2017 SUBJECTIVE: The patient this morning is impaired, in no acute distress. She is coughing. She is short of breath. There has been acute change, and no belly pain, no diarrhea or constipation. PHYSICAL EXAMINATION: GENERAL: The patient is in bed. VITAL SIGNS: Temperature of 98, T-max is 99.7, blood pressure is 120/80, and respiratory rate of 21. HEENT: Unremarkable. NECK: Supple. LUNGS: Decreased breath sounds. HEART: Normal S1, S2. ABDOMEN: Soft, nontender. No organomegaly, no rebound, no guarding, no masses. LABORATORY EXAMINATION: Reveals a white count of 14,600, hemoglobin of 10, and platelets of 79. Coagulation is noted. Chemistries reveal a BUN of 11, creatinine of 0.7. BNP is 17,200. Urinalysis is noted and influenza is negative. The patient has had negative HIV. The patient had a new chest x-ray ordered today by me, which shows a new infiltrate. ASSESSMENT AND PLAN: A 62-year-old female, was seen earlier this morning with sepsis, febrile, neutropenia. Neutropenia has resolved. The patient initially had Escherichia coli bacteremia and multiple sclerosis, ovarian cancer, pacemaker, on meropenem, now with new shortness of breath, coughing, tachycardia, and infiltrate. 1. Sepsis with health-care associated pneumonia. We will add vancomycin to the meropenem; order a procalcitonin; repeat pancultures; blood, urine, and sputum cultures; and order Dopplers of the lower extremities and we will treat the patient with vancomycin and meropenem. Pending pancultures, procalcitonin, and Dopplers. We will make further recommendations. Case was discussed with the nursing staff. Tyler Anglin MD
[2017-08-12] MEDS: Oxycodone/Acetaminophen 5/325 mg Tab PO PRN (13:13)
[2017-08-12 13:15] LABS: URINE BACTERIA SMALL (NEG)
--- NOTE | 2017-08-12 15:18 | US ---
HISTORY: Leg pain and swelling. Evaluate for DVT PHYSICIAN(S): Kwame Mcneal MD. TECHNIQUE: Duplex sonography and color-flow Doppler with graded compression were used to evaluate the deep venous systems of both lower extremities. FINDINGS: The visualized deep venous systems of both lower extremities are sonographically normal and compressible. Normal wave forms and augmentation are seen. There is no sonographic evidence for deep venous thrombosis in the visualized segments of both lower extremities. There is superficial thrombophlebitis in the proximal left saphenous vein. IMPRESSION: No sonographic evidence for deep venous thrombosis in the visualized segments of both lower extremities.
[2017-08-12] MEDS ORDERED: Iodixanol 320 MG/ML 100 ML BOTTLE IV ONE (15:52)
--- NOTE | 2017-08-12 17:51 | CT ---
PROCEDURE: CT Chest with contrast (Pulmonary Angiogram) HISTORY: r/o PE COMPARISON: None available. TECHNIQUE: Axial computed tomography images were obtained of the chest in the pulmonary arterial phase of enhancement. Coronal and sagittal reformatted images were created and reviewed. Intravenous contrast dose: 100 mL Visipaque 320 Radiation dose: Total exam DLP = 295.85 mGy-cm. This CT exam was performed using one or more of the following dose reduction techniques: Automated exposure control, adjustment of the mA and/or kV according to patient size, and/or use of iterative reconstruction technique. FINDINGS: PULMONARY ARTERIES: Unremarkable. No pulmonary embolism. AORTA: No acute findings. No thoracic aortic aneurysm. LUNGS: Minimal right lower lobe compressive atelectasis. No pulmonary infiltrate. PLEURAL SPACES: Moderate right and small left pleural effusion. No pneumothorax. HEART: Normal heart size. AICD noted. Minimal pericardial effusion. LYMPH NODES: No lymphadenopathy. BONES, CHEST WALL: Unremarkable. No fracture or destructive lesion OTHER FINDINGS: Cholelithiasis without evidence of cholecystitis IMPRESSION: No evidence of pulmonary embolism. Moderate right and small left pleural effusions. AICD. Cholelithiasis.
[2017-08-12] MEDS: Enoxaparin 80 mg Syringe SC SCH (17:57)
[2017-08-12] MEDS: Morphine 4 mg/ml ISec IV PRN (21:40)
--- NOTE | 2017-08-12 23:46 | PN ---
DATE: SUBJECTIVE: The patient is 82 years old, seen and examined, seems to be short of breath, tachycardic. Had leg Doppler study done, found to have saphenous vein thrombosis. The patient has CT angio done also. No evidence of pulmonary embolism. Moderate right and small left pleural effusion and cholelithiasis appreciated. The patient complained of cough. PHYSICAL EXAMINATION: VITAL SIGNS: She is afebrile, pulse 129, respirations 20, blood pressure 146/101. LUNGS: Bilateral fair airflow. No rhonchi or crackle. HEART: S1, S2 audible, tachycardiac. ABDOMEN: Soft. Complained of epigastric discomfort. NEUROLOGICALLY: She is awake and alert. Able to communicate. LABORATORY EXAM: Her CT angio is negative for PE. However, her leg Doppler done today does not show any DVT; however, I was verbally told that she has saphenous vein thrombosis. Her white count is 35,200, hemoglobin 10.2, hematocrit 32.6, platelet of 97. Chemistry: Sodium 144, potassium 4.6, chloride 100, CO2 of 32, BUN 24, creatinine 0.9, blood sugar of 109, AST 79, ALT 140, alk phos is 151, BNP 17,200. ASSESSMENT: 1. Right lower lobe pneumonia with congestive changes and small pleural effusion. 2. Metastatic ovarian cancer. 3. Leukocytosis secondary to steroid and Neupogen, status post chemotherapy. PLAN: Currently, the patient is on small dose of steroid. The patient states that Nucynta that she takes at home is working well, so she will arrange for that from home. She has been started on vancomycin. Continue nebulizer treatment. We will follow up her CBC and CMP in a.m. Kimberley Hernadez MD
[2017-08-13] MEDS: Nystatin 100,000 Units/ml Oral Susp 5 ml UD PO SCH ×5 (05:39→22:11)
[2017-08-13] MEDS: Morphine 4 mg/ml ISec IV PRN ×3 (05:42→22:08)
[2017-08-13] MEDS: Meropenem 1g/NS 100mL IVPB 1 GM/100 ML PIGGYBACK IVPB SCH ×3 (05:44→22:18)
[2017-08-13 07:57] LABS: HEMOGLOBIN 10.7 g/dL (12.0-16.0); MEAN CELL VOLUME 94.7 fl (80.0-105.0); MEAN CORPUSCULAR HEMOGLOBIN 29.7 pg (25.0-35.0); MEAN CORPUSCULAR HGB CONC 31.4 g/dl (31.0-37.0); PLATELET COUNT 122 10^3/uL (120.0-450.0); RED CELL DISTRIBUTION WIDTH 16.6 % (11.5-14.5)
[2017-08-13] MEDS: Levalbuterol 0.63 MG/3 ML Inhal Soln UD IH SCH ×3 (08:05→19:46)
[2017-08-13 08:11] LABS: WHITE BLOOD COUNT 35.4 10^3/ul (4.5-11.0)
[2017-08-13 08:23] LABS: ALB/GLOB RATIO 1.1 (1.1-1.8); ALBUMIN 3.7 g/dL (3.0-4.8); ALT/SGPT 199 U/L (7-56); AST/SGOT 129 U/L (14-36); BLOOD UREA NITROGEN 24 mg/dL (7-21); CALCIUM 10.7 mg/dL (8.4-10.5); GFR AFRICAN-AMERICAN > 60; GFR NON-AFRICAN AMERICAN > 60
[2017-08-13] MEDS: POLYETHYLENE GLYCOL 3350 17 GM/Dose PACKET PO SCH (10:39)
[2017-08-13] MEDS: MethylPREDNISolone 40 mg Vial IV SCH ×2 (10:39→22:12)
[2017-08-13] MEDS: Sucralfate 1 gm/10 ml Oral Susp UD PO SCH ×3 (10:41→18:04)
[2017-08-13] MEDS: Magnesium Oxide 400 mg Tab UD PO SCH ×2 (10:41→18:04)
[2017-08-13] MEDS: Enoxaparin 80 mg Syringe SC SCH ×2 (10:42→18:04)
[2017-08-13] MEDS: Fluticasone Nasal 50 mcg/Spray NS SCH (10:43)
[2017-08-13] MEDS: Vancomycin 1gm in NS 250ml 1 GM/250 ML BAG IVPB SCH (10:48)
--- NOTE | 2017-08-13 11:11 | CP.PCM.PN ---
Subjective - Date & Time of Evaluation Date of Evaluation: 08/13/17 Time of Evaluation: 11:11 - Subjective Subjective: Podiatry Progress Note - Dr. Rosales 62 year old female patient seen and evaluated at bedside for left leg wounds. Patient OOB ambulating at time of visit. Patient reports feeling much better today, with SOB and coughing greatly decreased. Patient able to speak in complete sentences today. Reports mild pain to her wounds today. Able to ambulate without any issues. Denies N/V/F/C. Objective - Vital Signs/Intake and Output Vital Signs (last 24 hours): Temp Pulse Resp BP Pulse Ox 98.1 F 98 H 20 136/88 98 08/13/17 06:00 08/13/17 10:41 08/13/17 06:00 08/13/17 10:43 08/13/17 06:00 Intake and Output: 08/13/17 08/13/17 06:59 18:59 Intake Total 420 Output Total 800 Balance -380 - Medications Medications: Current Medications Acetaminophen (Tylenol 325mg Tab) 650 mg PO Q4 PRN PRN Reason: Fever >100.4 F Last Admin: 08/12/17 06:04 Dose: 650 mg Atenolol (Tenormin) 25 mg PO DAILY [facility] Last Admin: 08/13/17 10:46 Dose: Not Given Benzonatate (Tessalon Perles) 100 mg PO TID [facility] Last Admin: 08/13/17 10:41 Dose: 100 mg Enoxaparin Sodium (Lovenox) 70 mg SC BID [facility] PRN Reason: Protocol Last Admin: 08/13/17 10:42 Dose: 70 mg Fluticasone Propionate (Flonase) 1 actuation NS DAILY [facility] Last Admin: 08/13/17 10:43 Dose: 1 spr Furosemide (Lasix) 40 mg IVP DAILY [facility] Last Admin: 08/13/17 10:43 Dose: 40 mg Vancomycin HCl (Vancomycin 1gm) 1 gm in 250 mls @ 167 mls/hr IVPB Q12H [facility] PRN Reason: Protocol Stop: 08/26/17 10:16 Last Admin: 08/13/17 10:48 Dose: 167 mls/hr Meropenem/Sodium Chloride (Meropenem 1g/Ns 100ml Ivpb) 1 gm in 100 mls @ 100 mls/hr IVPB Q8 [facility] PRN Reason: Protocol Stop: 08/21/17 14:01 Last Admin: 08/13/17 05:44 Dose: 100 mls/hr Levalbuterol HCl (Xopenex) 0.63 mg IH TIDRESP [facility] Last Admin: 08/13/17 08:05 Dose: 0.63 mg Lidocaine/Prilocaine (Emla) 0 gm TOP TID PRN PRN Reason: Pain, Mild (1-3) Last Admin: 08/12/17 01:43 Dose: 1 applic Magnesium Oxide (Mag-Ox) 400 mg PO BID [facility] Last Admin: 08/13/17 10:41 Dose: 400 mg Methylprednisolone (Solu-Medrol) 40 mg IV Q12 [facility] Last Admin: 08/13/17 10:39 Dose: 40 mg Morphine Sulfate (Morphine) 4 mg IV Q4H PRN PRN Reason: Pain, moderate (4-7) Last Admin: 08/13/17 05:42 Dose: 4 mg Mupirocin (Bactroban Ointment) 1 gm TOP BID [facility] Last Admin: 08/13/17 10:59 Dose: Not Given Glatiramer Acetate [ (Copaxone] 40 Mg) 40 mg SQ MWF [facility] Last Admin: 08/11/17 11:03 Dose: Not Given Tapentadol Hcl [ (Nucynta] 100 Mg) 100 mg PO TID [facility] Last Admin: 08/13/17 10:44 Dose: Not Given Tapentadol Hcl [ (Nucynta Er] 150 Mg) 150 mg PO Q12H [facility] Last Admin: 08/12/17 17:24 Dose: Not Given Nystatin (Nystatin Oral Susp) 5 ml PO 5XD [facility] Last Admin: 08/13/17 10:41 Dose: 5 ml Ondansetron HCl (Zofran Inj) 4 mg IVP Q6H PRN PRN Reason: Nausea/Vomiting Last Admin: 08/09/17 21:52 Dose: 4 mg Polyethylene Glycol (Miralax) 17 gm PO DAILY [facility] Last Admin: 08/13/17 10:39 Dose: 17 gm Sucralfate (Carafate Oral Susp) 1 gm PO TID [facility] Last Admin: 08/13/17 10:41 Dose: 1 gm - Labs Labs: 08/13/17 07:00 08/13/17 07:00 PT 13.4 SECONDS (9.4-12.5) H 08/06/17 15:30 INR 1.17 (0.93-1.08) H 08/06/17 15:30 APTT 46.9 Seconds (25.1-36.5) H 08/06/17 15:30 - Constitutional Appears: Well, Non-toxic, No Acute Distress - Extremities Exam Additional comments: Dressings to left leg appear clean/dry/intact with no strikethrough noted. No GRAEME Hose present - Neurological Exam Neurological Exam: Alert, Awake, Oriented x3 - Psychiatric Exam Psychiatric exam: Normal Affect, Normal Mood Assessment and Plan - Assessment and Plan (Free Text) Assessment: 62 year old female patient with Stage III LLE ulcerations x2, improving Plan: Patient seen and evaluated at bedside with attending, Dr. Rosales Afebrile, WBC 35.4 (yesterday 35.2) Left leg dressings (silvercel) maintained - plan for change tomorrow, Monday Continue GRAEME Palmer Continue abx per ID - Meropenem, Vancomycin Pain control - Morphine, Emla TD Bilateral venous duplex ordered r/o DVT - Negative for DVT b/l, superficial thrombophlebitis in proximal left saphenous vein CXR: small pleural effusions, possible pulmonary edema, possible RLL pneumonia Chest CT: Negative for PE Patient may follow up at wound care center once discharged Podiatry will continue to follow while patient in house
--- NOTE | 2017-08-13 16:32 | PN ---
DATE: SUBJECTIVE: The patient is 62 years old, seen and examined. Less shortness of breath. No nausea or vomiting. Eating and tolerating. Slight epigastric discomfort. PHYSICAL EXAMINATION: VITAL SIGNS: She is afebrile, pulse 97, respirations 20, blood pressure 156/88. LUNGS: Bilateral good airflow. No rhonchi or crackle. HEART: S1 and S2 audible. ABDOMEN: Soft. Slight epigastric discomfort. She has some perineal fullness. EXTREMITIES: Bilateral leg ulcer. Left leg, she has multiple ulcers, seems to be granulating. They are dressed by Podiatry team. LABORATORY EXAM: WBC 35.4, hemoglobin 10.7, hematocrit 34.1, platelet 122. Chemistry: Sodium 146, potassium 3.8, chloride 98, CO2 of 32, BUN 24, creatinine 0.9, blood sugar of 146, AST 129, ALT 199, alk phos is 287. CT scan of the chest negative for pulmonary embolism; however, her left leg is positive for superficial saphenous thrombophlebitis. ASSESSMENT: 1. Metastatic ovarian cancer. 2. Superficial thrombophlebitis of left saphenous vein. 3. Leukocytosis secondary to Neupogen. 4. Status post chemotherapy. 5. Abnormal liver function tests, etiology unclear. PLAN: We will continue the patient on current mediation. She is on Lasix 40 IV daily. We will continue her on Lovenox. She is on meropenem and vancomycin. We will follow up her abdominal sonogram. Kimberley Hernadez MD
--- NOTE | 2017-08-13 17:18 | US ---
HISTORY: Abnormal LFTs COMPARISON: Comparison made with prior abdominal ultrasound dated 07/02/[address] scan abdomen pelvis dated 08/06/2017. TECHNIQUE: Sonographic evaluation of the abdomen. FINDINGS: LIVER: The liver measures approximately 14 cm on this exam though measured at just over [address] scan of the abdomen and pelvis. Liver demonstrates relatively smooth contour and normal echotexture. . No definitive evidence of. No definitive evidence of intrahepatic mass or collection seen on images presented. No gross intrahepatic biliary ductal dilatation. GALLBLADDER: Re- demonstrated is cholelithiasis. No evidence of sonographic Bone sign. COMMON BILE DUCT: Common bile duct measures approximately 5 mm. Mm. No stones. No dilatation. PANCREAS: Unremarkable as visualized. No mass. No ductal dilatation. RIGHT KIDNEY: Right kidney measures approximately 10.4 x 5.3 x 5.5cm. There appears to be mild hydronephrosis Normal echogenicity. No shadowing calculi or mass seen. LEFT KIDNEY: Left kidney measures approximately 10.3 x 6.0 x 5.1 cm. There appears to be mild hydronephrosis. . . Normal echogenicity. No shadowing calculi renal mass. SPLEEN: Normal in size and contour. No mass. AORTA: No aneurysmal dilatation. IVC: Unremarkable. OTHER FINDINGS: None. IMPRESSION: Mild bilateral hydronephrosis. Cholelithiasis.
--- NOTE | 2017-08-13 18:35 | PN ---
DATE: 08/13/2017 SUBJECTIVE: Patient is in bed, in no acute distress, nontoxic. PHYSICAL EXAMINATION: VITAL SIGNS: Temperature is 98, blood pressure is 130/80, respiratory rate of 16. HEENT: Unremarkable. NECK: Supple. LUNGS: Have decreased breath sounds. HEART: Normal S1, S2. ABDOMEN: Soft, nontender. LABORATORY EXAMINATION: Reveals a white count of 35,000, hemoglobin of 10, platelets of 122. Coagulation is noted and the chemistries reveal a BUN of 24, creatinine of 0.9, procalcitonin 0.86. Urinalysis is noted and blood cultures are negative. Patient's procalcitonin is 0.86 and urine cultures are negative from yesterday. Patient's CAT scan of the chest is noted and chest x-ray is noted. ASSESSMENT AND PLAN: This is a 62-year-old female who is seen early this morning and this morning, she is much better than yesterday and admitted with sepsis, febrile neutropenia, which is resolved and Escherichia coli bacteremia, multiple sclerosis, ovarian cancer, pacemaker; was on meropenem yesterday. Patient developed sepsis with a new infiltrate on her chest x-ray, although the CAT scan shows no infiltrate; and on vancomycin, meropenem; elevated procalcitonin; negative repeat blood cultures at 24 hours, negative urine cultures at 24 hours and day #2 of vancomycin and meropenem. Patient also had an ultrasound of lower extremities which reveals a superficial thrombophlebitis in the proximal left saphenous vein. Patient is doing much better. We will give a short course of antibiotics if all cultures are negative. Tyler Anglin MD
[2017-08-14] MEDS: Vancomycin 1gm in NS 250ml 1 GM/250 ML BAG IVPB SCH ×3 (00:05→23:12)
[2017-08-14] MEDS: Meropenem 1g/NS 100mL IVPB 1 GM/100 ML PIGGYBACK IVPB SCH ×3 (05:54→21:47)
[2017-08-14] MEDS: Nystatin 100,000 Units/ml Oral Susp 5 ml UD PO SCH ×5 (05:55→21:46)
[2017-08-14] MEDS: Morphine 4 mg/ml ISec IV PRN ×4 (05:55→20:55)
[2017-08-14] MEDS: Levalbuterol 0.63 MG/3 ML Inhal Soln UD IH SCH ×3 (07:56→22:56)
[2017-08-14] MEDS: Sucralfate 1 gm/10 ml Oral Susp UD PO SCH ×3 (09:32→16:59)
[2017-08-14] MEDS: Fluticasone Nasal 50 mcg/Spray NS SCH (09:32)
[2017-08-14] MEDS: MethylPREDNISolone 40 mg Vial IV SCH ×2 (09:33→21:46)
[2017-08-14] MEDS: Magnesium Oxide 400 mg Tab UD PO SCH ×2 (09:33→16:59)
[2017-08-14] MEDS: Enoxaparin 80 mg Syringe SC SCH ×2 (09:34→16:59)
[2017-08-14] MEDS: POLYETHYLENE GLYCOL 3350 17 GM/Dose PACKET PO SCH (09:34)
[2017-08-14] MEDS: Lidocaine/Prilocaine 2.5%-2.5% Cream(30 gm) TOP PRN (09:35)
--- NOTE | 2017-08-14 16:15 | CP.PCM.PN ---
Subjective - Date & Time of Evaluation Date of Evaluation: 08/14/17 Time of Evaluation: 16:11 - Subjective Subjective: Podiatry Progress Note - Dr. Rosales 62 year old female patient seen and evaluated at bedside for left leg wounds. Patient resting comfortably, NAD. No acute events overnight. Patient reports decreased pain to her left leg wounds. Dressings on left leg clean/dry/intact. Denies N/V/F/C. Admits SOB is still improving. Objective - Vital Signs/Intake and Output Vital Signs (last 24 hours): Temp Pulse Resp BP Pulse Ox 98.2 F 80 19 140/80 100 08/14/17 09:07 08/14/17 09:33 08/14/17 09:07 08/14/17 09:33 08/14/17 09:07 Intake and Output: 08/14/17 08/14/17 06:59 18:59 Intake Total 420 660 Output Total 925 Balance 420 -265 - Medications Medications: Current Medications Acetaminophen (Tylenol 325mg Tab) 650 mg PO Q4 PRN PRN Reason: Fever >100.4 F Last Admin: 08/12/17 06:04 Dose: 650 mg Atenolol (Tenormin) 25 mg PO DAILY [facility] Last Admin: 08/14/17 09:33 Dose: 25 mg Benzonatate (Tessalon Perles) 100 mg PO TID [facility] Last Admin: 08/14/17 14:13 Dose: 100 mg Enoxaparin Sodium (Lovenox) 70 mg SC BID [facility] PRN Reason: Protocol Last Admin: 08/14/17 09:34 Dose: 70 mg Fluticasone Propionate (Flonase) 1 actuation NS DAILY [facility] Last Admin: 08/14/17 09:32 Dose: 1 spr Furosemide (Lasix) 40 mg IVP DAILY [facility] Last Admin: 08/14/17 09:33 Dose: 40 mg Vancomycin HCl (Vancomycin 1gm) 1 gm in 250 mls @ 167 mls/hr IVPB Q12H [facility] PRN Reason: Protocol Stop: 08/26/17 10:16 Last Admin: 08/14/17 09:35 Dose: 167 mls/hr Meropenem/Sodium Chloride (Meropenem 1g/Ns 100ml Ivpb) 1 gm in 100 mls @ 100 mls/hr IVPB Q8 [facility] PRN Reason: Protocol Stop: 08/21/17 14:01 Last Admin: 08/14/17 14:13 Dose: 100 mls/hr Levalbuterol HCl (Xopenex) 0.63 mg IH TIDRESP [facility] Last Admin: 08/14/17 13:29 Dose: 0.63 mg Lidocaine/Prilocaine (Emla) 0 gm TOP TID PRN PRN Reason: Pain, Mild (1-3) Last Admin: 08/14/17 09:35 Dose: 1 applic Magnesium Oxide (Mag-Ox) 400 mg PO BID [facility] Last Admin: 08/14/17 09:33 Dose: 400 mg Methylprednisolone (Solu-Medrol) 40 mg IV Q12 [facility] Last Admin: 08/14/17 09:33 Dose: 40 mg Morphine Sulfate (Morphine) 4 mg IV Q4H PRN PRN Reason: Pain, moderate (4-7) Last Admin: 08/14/17 13:54 Dose: 4 mg Mupirocin (Bactroban Ointment) 1 gm TOP BID [facility] Last Admin: 08/14/17 14:11 Dose: 1 applic Glatiramer Acetate [ (Copaxone] 40 Mg) 40 mg SQ MWF [facility] Last Admin: 08/14/17 14:30 Dose: Not Given Tapentadol Hcl [ (Nucynta] 100 Mg) 100 mg PO TID [facility] Last Admin: 08/14/17 14:13 Dose: Not Given Tapentadol Hcl [ (Nucynta Er] 150 Mg) 150 mg PO Q12H [facility] Last Admin: 08/14/17 05:55 Dose: Not Given Nystatin (Nystatin Oral Susp) 5 ml PO 5XD [facility] Last Admin: 08/14/17 14:12 Dose: 5 ml Ondansetron HCl (Zofran Inj) 4 mg IVP Q6H PRN PRN Reason: Nausea/Vomiting Last Admin: 08/09/17 21:52 Dose: 4 mg Polyethylene Glycol (Miralax) 17 gm PO DAILY [facility] Last Admin: 08/14/17 09:34 Dose: 17 gm Sucralfate (Carafate Oral Susp) 1 gm PO TID [facility] Last Admin: 08/14/17 14:30 Dose: 1 gm - Labs Labs: 08/13/17 07:00 08/13/17 07:00 PT 13.4 SECONDS (9.4-12.5) H 08/06/17 15:30 INR 1.17 (0.93-1.08) H 08/06/17 15:30 APTT 46.9 Seconds (25.1-36.5) H 08/06/17 15:30 - Constitutional Appears: Well, Non-toxic, No Acute Distress - Extremities Exam Additional comments: Bilateral LE exam: VASC: DP/PT pulses are palpable 1/4, Cap refill time: < 3 sec to all digits, Temp gradient: warm to cool from proximal to distal, no edema noted DERM: 2 wounds present on the distal medial leg and one on the distal anterior aspect. Proximal wound measures approx 0.8cm x 0.5cm x 0.1cm, distal medial wound measures approx. 0.5cm x 0.5cm x 0.1 cm, distal anterior wound is fairly healed. All wound beds are noted to have a granular base and hyperpigmented rim , no tunneling, no undermining, no active discharge, no malodor, no dejah-wound erythema, no clinical suspicion of active infection at this time NEURO: Protective sensation grossly intact ORTHO: no pain on palpation of the wound, MMT: 5/5 in all 4 compartment - Neurological Exam Neurological Exam: Alert, Awake, Oriented x3 - Psychiatric Exam Psychiatric exam: Normal Affect, Normal Mood Assessment and Plan - Assessment and Plan (Free Text) Assessment: 62 year old female patient with Stage III LLE ulcerations x2, improving Plan: Patient seen and evaluated at bedside with attending, Dr. Rosales Afebrile Continue local wound care - Optifoam Wounds appear stable at this time Continue GRAEME Palmer Pain control - Morphine, Emla TD Bilateral venous duplex ordered r/o DVT - Negative for DVT b/l, superficial thrombophlebitis in proximal left saphenous vein Patient may follow up at wound care center once discharged Podiatry will continue to follow while patient in house
--- NOTE | 2017-08-14 16:25 | CP.PCM.PN ---
Subjective - Date & Time of Evaluation Date of Evaluation: 08/14/17 Time of Evaluation: 10:40 - Subjective Subjective: Comfortable in bed, less pain in the legs, no fevers. Objective - Vital Signs/Intake and Output Vital Signs (last 24 hours): Temp Pulse Resp BP Pulse Ox 98.2 F 80 19 140/80 100 08/14/17 09:07 08/14/17 09:33 08/14/17 09:07 08/14/17 09:33 08/14/17 09:07 Intake and Output: 08/14/17 08/14/17 06:59 18:59 Intake Total 420 Balance 420 - Medications Medications: Current Medications Acetaminophen (Tylenol 325mg Tab) 650 mg PO Q4 PRN PRN Reason: Fever >100.4 F Last Admin: 08/12/17 06:04 Dose: 650 mg Atenolol (Tenormin) 25 mg PO DAILY [facility] Last Admin: 08/14/17 09:33 Dose: 25 mg Benzonatate (Tessalon Perles) 100 mg PO TID [facility] Last Admin: 08/14/17 09:32 Dose: 100 mg Enoxaparin Sodium (Lovenox) 70 mg SC BID [facility] PRN Reason: Protocol Last Admin: 08/14/17 09:34 Dose: 70 mg Fluticasone Propionate (Flonase) 1 actuation NS DAILY [facility] Last Admin: 08/14/17 09:32 Dose: 1 spr Furosemide (Lasix) 40 mg IVP DAILY [facility] Last Admin: 08/14/17 09:33 Dose: 40 mg Vancomycin HCl (Vancomycin 1gm) 1 gm in 250 mls @ 167 mls/hr IVPB Q12H [facility] PRN Reason: Protocol Stop: 08/26/17 10:16 Last Admin: 08/14/17 09:35 Dose: 167 mls/hr Meropenem/Sodium Chloride (Meropenem 1g/Ns 100ml Ivpb) 1 gm in 100 mls @ 100 mls/hr IVPB Q8 [facility] PRN Reason: Protocol Stop: 08/21/17 14:01 Last Admin: 08/14/17 05:54 Dose: 100 mls/hr Levalbuterol HCl (Xopenex) 0.63 mg IH TIDRESP [facility] Last Admin: 08/14/17 07:56 Dose: 0.63 mg Lidocaine/Prilocaine (Emla) 0 gm TOP TID PRN PRN Reason: Pain, Mild (1-3) Last Admin: 08/14/17 09:35 Dose: 1 applic Magnesium Oxide (Mag-Ox) 400 mg PO BID [facility] Last Admin: 08/14/17 09:33 Dose: 400 mg Methylprednisolone (Solu-Medrol) 40 mg IV Q12 [facility] Last Admin: 08/14/17 09:33 Dose: 40 mg Morphine Sulfate (Morphine) 4 mg IV Q4H PRN PRN Reason: Pain, moderate (4-7) Last Admin: 08/14/17 09:29 Dose: 4 mg Mupirocin (Bactroban Ointment) 1 gm TOP BID [facility] Last Admin: 08/13/17 18:06 Dose: Not Given Glatiramer Acetate [ (Copaxone] 40 Mg) 40 mg SQ MWF [facility] Last Admin: 08/11/17 11:03 Dose: Not Given Tapentadol Hcl [ (Nucynta] 100 Mg) 100 mg PO TID [facility] Last Admin: 08/14/17 09:37 Dose: Not Given Tapentadol Hcl [ (Nucynta Er] 150 Mg) 150 mg PO Q12H [facility] Last Admin: 08/14/17 05:55 Dose: Not Given Nystatin (Nystatin Oral Susp) 5 ml PO 5XD [facility] Last Admin: 08/14/17 09:36 Dose: 5 ml Ondansetron HCl (Zofran Inj) 4 mg IVP Q6H PRN PRN Reason: Nausea/Vomiting Last Admin: 08/09/17 21:52 Dose: 4 mg Polyethylene Glycol (Miralax) 17 gm PO DAILY [facility] Last Admin: 08/14/17 09:34 Dose: 17 gm Sucralfate (Carafate Oral Susp) 1 gm PO TID [facility] Last Admin: 08/14/17 09:32 Dose: 1 gm - Labs Labs: 08/13/17 07:00 08/13/17 07:00 PT 13.4 SECONDS (9.4-12.5) H 08/06/17 15:30 INR 1.17 (0.93-1.08) H 08/06/17 15:30 APTT 46.9 Seconds (25.1-36.5) H 08/06/17 15:30 - Constitutional Appears: Non-toxic, Chronically Ill - Head Exam Head Exam: NORMAL INSPECTION - ENT Exam ENT Exam: Mucous Membranes Moist - Neck Exam Neck Exam: absent: Meningismus - Respiratory Exam Respiratory Exam: Decreased Breath Sounds - Cardiovascular Exam Cardiovascular Exam: +S1, +S2 - GI/Abdominal Exam GI & Abdominal Exam: Soft. absent: Tenderness Assessment and Plan - Assessment and Plan (Free Text) Plan: Assessment E. coli bacteremia S/P Febrile neutropenia right leg infection with MSSA history of bilateral inguinal area skin and skin structure infection associated with ovarian cancer metastasis S/P I and D history of chronic left leg ulcers, infected with Pseudomonas and Proteus mirabilis urinary bladder / urethral cancer ovarian cancer multiple sclerosis S/P pacemaker placement S/P right sided port-a-cath placement Plan continue Vancomycin and Merrem (day 9)- complete 10-14 days of antibiotics overall prognosis is poor
--- NOTE | 2017-08-14 22:33 | PN ---
DATE: SUBJECTIVE: The patient is a 62-year-old, seen and examined, lying in bed. Seems to be comfortable. Her shortness of breath is much better. Still has cough. PHYSICAL EXAMINATION: VITAL SIGNS: She is afebrile. Pulse 80, respirations 19, and blood pressure is 140/80. LUNGS: Bilateral fair airflow. No rhonchi or crackles. HEART: S1 and S2 audible. ABDOMEN: Soft. Slight epigastric discomfort. Ileal conduit is draining clear urine. EXTREMITIES: Left foot edema seems to be subsiding. LABORATORY DATA: Repeat blood culture on 08/12/2017 was negative. Abdominal ultrasound shows cholelithiasis and mild hydronephrosis. ASSESSMENT: 1. Left saphenous vein thrombophlebitis. 2. Metastatic ovarian cancer, status post chemotherapy. 3. Status post pancytopenia. Currently, she has leukocytosis. 4. Multiple healing ulcers on the left kyle. 5. Constipation. PLAN: Currently, she is on vancomycin and meropenem. I will cut down her steroids to 40 mg daily. A TCU evaluation has been requested. If accepted, can be transferred to the TCU. Patient is complaining of constipation for the last 3-4 days. She has been on narcotics. We will give her one dose of Relistor. If no result, I will give her magnesium citrate tomorrow. Kimberley Hernadez MD
--- NOTE | 2017-08-15 05:22 | CP.PCM.PN ---
Subjective - Date & Time of Evaluation Date of Evaluation: 08/15/17 Time of Evaluation: 05:19 - Subjective Subjective: Patient was seen at beside. Complained of chest pain, mid sternal, epigastric , woke up with this pain, is at 8 on 1-10 scale, radiates to back, squeezing or pressure like pain,had lot of sweting, has some shortness of breath which she came in with, little nausea, no palpitation, no cough. This 62 year old woman who was admitted with fever, generalized weakness, abdominal discomfort,epigastric pain, bodyaches, nausea, diarrhoea , cough , cough with blood specs,pelvic mass. She has PMH of metastatic ovarian cancer, bladder cancer, pancytopenia, multiple sclerosis. Objective - Vital Signs/Intake and Output Vital Signs (last 24 hours): Temp Pulse Resp BP Pulse Ox 98.3 F 90 19 139/95 H 97 08/14/17 16:00 08/14/17 16:00 08/14/17 16:00 08/14/17 16:00 08/14/17 16:00 Intake and Output: 08/14/17 08/15/17 18:59 06:59 Intake Total 660 180 Output Total 925 600 Balance -265 -420 - Medications Medications: Current Medications Acetaminophen (Tylenol 325mg Tab) 650 mg PO Q4 PRN PRN Reason: Fever >100.4 F Last Admin: 08/12/17 06:04 Dose: 650 mg Atenolol (Tenormin) 25 mg PO DAILY [facility] Last Admin: 08/14/17 09:33 Dose: 25 mg Benzonatate (Tessalon Perles) 100 mg PO TID [facility] Last Admin: 08/14/17 16:59 Dose: 100 mg Enoxaparin Sodium (Lovenox) 70 mg SC BID [facility] PRN Reason: Protocol Last Admin: 08/14/17 16:59 Dose: 70 mg Fluticasone Propionate (Flonase) 1 actuation NS DAILY [facility] Last Admin: 08/14/17 09:32 Dose: 1 spr Furosemide (Lasix) 40 mg IVP DAILY [facility] Last Admin: 08/14/17 09:33 Dose: 40 mg Vancomycin HCl (Vancomycin 1gm) 1 gm in 250 mls @ 167 mls/hr IVPB Q12H [facility] PRN Reason: Protocol Stop: 08/26/17 10:16 Last Admin: 08/14/17 23:12 Dose: 167 mls/hr Meropenem/Sodium Chloride (Meropenem 1g/Ns 100ml Ivpb) 1 gm in 100 mls @ 100 mls/hr IVPB Q8 [facility] PRN Reason: Protocol Stop: 08/21/17 14:01 Last Admin: 08/14/17 21:47 Dose: 100 mls/hr Levalbuterol HCl (Xopenex) 0.63 mg IH TIDRESP [facility] Last Admin: 08/14/17 22:56 Dose: 0.63 mg Lidocaine/Prilocaine (Emla) 0 gm TOP TID PRN PRN Reason: Pain, Mild (1-3) Last Admin: 08/14/17 09:35 Dose: 1 applic Magnesium Oxide (Mag-Ox) 400 mg PO BID [facility] Last Admin: 08/14/17 16:59 Dose: 400 mg Methylprednisolone (Solu-Medrol) 20 mg IV Q12 [facility] Last Admin: 08/14/17 21:46 Dose: 20 mg Morphine Sulfate (Morphine) 4 mg IV Q4H PRN PRN Reason: Pain, moderate (4-7) Last Admin: 08/14/17 20:55 Dose: 4 mg Mupirocin (Bactroban Ointment) 1 gm TOP BID [facility] Last Admin: 08/14/17 17:00 Dose: 1 applic Nitroglycerin (Nitrostat Sl Tab) 0.4 mg SL Q5M PRN PRN Reason: chest pain Stop: 08/15/17 05:26 Glatiramer Acetate [ (Copaxone] 40 Mg) 40 mg SQ MWF [facility] Last Admin: 08/14/17 14:30 Dose: Not Given Tapentadol Hcl [ (Nucynta] 100 Mg) 100 mg PO TID [facility] Last Admin: 08/14/17 17:01 Dose: Not Given Tapentadol Hcl [ (Nucynta Er] 150 Mg) 150 mg PO Q12H [facility] Last Admin: 08/14/17 17:01 Dose: Not Given Nystatin (Nystatin Oral Susp) 5 ml PO 5XD [facility] Last Admin: 08/14/17 21:46 Dose: 5 ml Ondansetron HCl (Zofran Inj) 4 mg IVP Q6H PRN PRN Reason: Nausea/Vomiting Last Admin: 08/09/17 21:52 Dose: 4 mg Polyethylene Glycol (Miralax) 17 gm PO DAILY [facility] Last Admin: 08/14/17 09:34 Dose: 17 gm Sucralfate (Carafate Oral Susp) 1 gm PO TID [facility] Last Admin: 08/14/17 16:59 Dose: 1 gm - Labs Labs: 08/13/17 07:00 08/13/17 07:00 PT 13.4 SECONDS (9.4-12.5) H 08/06/17 15:30 INR 1.17 (0.93-1.08) H 08/06/17 15:30 APTT 46.9 Seconds (25.1-36.5) H 08/06/17 15:30 Micro Results 08/12/17 11:30 Blood Blood Culture - Preliminary NO GROWTH AFTER 48 HOURS 08/12/17 11:00 Blood Blood Culture - Preliminary NO GROWTH AFTER 48 HOURS 08/12/17 13:40 Sputum Gram Stain - Final 08/12/17 13:40 Sputum Sputum Culture - Final NORMAL ORAL YAA 08/12/17 10:30 Naris MRSA Culture (Admit) - Final MRSA NOT DETECTED 08/12/17 11:05 Urine Urine Culture - Final No Growth (<1,000 CFU/ML) 08/08/17 13:30 Leg - Left Gram Stain - Final 08/08/17 13:30 Leg - Left Wound Culture - Final Staphylococcus Aureus 08/06/17 16:45 Blood Blood Culture - Final NO GROWTH AFTER 5 DAYS 08/06/17 16:45 Blood Gram Stain - Final TEST NOT PERFORMED 08/06/17 15:30 Blood Blood Culture - Final Escherichia Coli 08/06/17 15:30 Blood Gram Stain - Final 08/06/17 18:21 Urine Urine Culture - Final > 100,000 CFU/ML. MULTIPLE SPECIES. SUGGEST REPEAT SPECIMEM. Most Recent Lab Values WBC 35.4 10^3/ul (4.5-11.0) H* 08/13/17 07:00 RBC 3.60 10^6/uL (3.5-6.1) 08/13/17 07:00 Hgb 10.7 g/dL (12.0-16.0) L 08/13/17 07:00 Hct 34.1 % (36.0-48.0) L 08/13/17 07:00 MCV 94.7 fl (80.0-105.0) 08/13/17 07:00 MCH 29.7 pg (25.0-35.0) 08/13/17 07:00 MCHC 31.4 g/dl (31.0-37.0) 08/13/17 07:00 RDW 16.6 % (11.5-14.5) H 08/13/17 07:00 Plt Count 122 10^3/uL (120.0-450.0) 08/13/17 07:00 Manual Plt Count 21 K/mm3 (120-450) L* 08/06/17 16:40 MPV 11.0 fl (7.0-11.0) 08/13/17 07:00 Gran % 26.5 % (50.0-68.0) L 08/09/17 08:45 Lymph % (Auto) 51.4 % (22.0-35.0) H 08/09/17 08:45 [place] % (Auto) Dinker 08/13/17 07:00 Eos % (Auto) Dinker 08/13/17 07:00 Baso % (Auto) 0.7 % (0.0-3.0) 08/09/17 08:45 Gran # 0.37 (1.4-6.5) L 08/09/17 08:45 Lymph # (Auto) 0.7 (1.2-3.4) L 08/09/17 08:45 [place] # (Auto) Dinker 08/13/17 07:00 Eos # (Auto) 0.0 (0.0-0.7) 08/13/17 07:00 Baso # (Auto) 0.01 K/mm3 (0.0-2.0) 08/09/17 08:45 Platelet Evaluation Low (NORMAL) 08/06/17 16:40 PT 13.4 SECONDS (9.4-12.5) H 08/06/17 15:30 INR 1.17 (0.93-1.08) H 08/06/17 15:30 APTT 46.9 Seconds (25.1-36.5) H 08/06/17 15:30 pO2 43 mm/Hg (30-55) 08/06/17 15:30 VBG pH 7.49 (7.32-7.43) H 08/06/17 15:30 VBG pCO2 39.0 (40-60) L 08/06/17 15:30 VBG HCO3 29.7 mmol/l (21-28) H 08/06/17 15:30 VBG Total CO2 30.9 mmol.L (22-28) H 08/06/17 15:30 VBG O2 Sat (Calc) 86.6 % (40-65) H 08/06/17 15:30 VBG Base Excess 5.9 mmol/L (0.0-2.0) H 08/06/17 15:30 VBG Potassium 2.7 mmol/L (3.6-5.2) L 08/06/17 15:30 Sodium 132.0 mmol/L (132-148) 08/06/17 15:30 Chloride 98.0 mmol/L (98-107) 08/06/17 15:30 Glucose 114 mg/dl (65-105) H 08/06/17 15:30 Lactate 1.0 mmol/L (0.7-2.1) 08/06/17 15:30 FiO2 21.0 % 08/06/17 15:30 Sodium 146 mmol/L (132-148) 08/13/17 07:00 Potassium 3.8 mmol/L (3.6-5.0) 08/13/17 07:00 Chloride 98 mmol/L (98-107) 08/13/17 07:00 Carbon Dioxide 32 mmol/L (21-33) 08/13/17 07:00 Anion Gap 20 (10-20) 08/13/17 07:00 BUN 24 mg/dL (7-21) H 08/13/17 07:00 Creatinine 0.9 mg/dl (0.7-1.2) 08/13/17 07:00 Est GFR ( Amer) > 60 08/13/17 07:00 Est GFR (Non-Af Amer) > 60 08/13/17 07:00 Random Glucose 146 mg/dL (70-110) H 08/13/17 07:00 Uric Acid 3.9 mg/dL (2.5-6.2) 08/09/17 08:45 Calcium 10.7 mg/dL (8.4-10.5) H 08/13/17 07:00 Phosphorus 2.2 mg/dL (2.5-4.5) L 08/07/17 06:00 Magnesium 1.6 mg/dL (1.7-2.2) L 08/07/17 06:00 Total Bilirubin 0.3 mg/dL (0.2-1.3) 08/13/17 07:00 AST 129 U/L (14-36) H D 08/13/17 07:00 ALT 199 U/L (7-56) H 08/13/17 07:00 Alkaline Phosphatase 287 U/L (38-126) H D 08/13/17 07:00 NT-Pro-B Natriuret Pep 92155 pg/mL (0-450) H 08/11/17 16:00 Total Protein 7.0 g/dL (5.8-8.3) 08/13/17 07:00 Albumin 3.7 g/dL (3.0-4.8) 08/13/17 07:00 Globulin 3.3 gm/dL 08/13/17 07:00 Albumin/Globulin Ratio 1.1 (1.1-1.8) 08/13/17 07:00 CA 125 Antigen 520 U/mL (0-35) H D 08/10/17 09:40 Procalcitonin 0.86 NG/ML (0.19-0.49) H 08/12/17 11:05 Venous Blood Potassium 2.7 mmol/L (3.6-5.2) L 08/06/17 15:30 Urine Color Light yellow (YELLOW) 08/12/17 11:05 Urine Appearance Slight-cloudy (CLEAR) 08/12/17 11:05 Urine pH 7.0 (4.7-8.0) 08/12/17 11:05 Ur Specific Leland 1.020 (1.005-1.035) 08/12/17 11:05 Urine Protein Trace mg/dL (<30 mg/dL) H 08/12/17 11:05 Urine Glucose (UA) Negative mg/dL (NEGATIVE) 08/12/17 11:05 Urine Ketones Trace mg/dL (NEGATIVE) H 08/12/17 11:05 Urine Blood Large (NEGATIVE) H 08/12/17 11:05 Urine Nitrate Negative (NEGATIVE) 08/12/17 11:05 Urine Bilirubin Negative (NEGATIVE) 08/12/17 11:05 Urine Urobilinogen 0.2 E.U./dL (<1 E.U./dL) 08/12/17 11:05 Ur Leukocyte Esterase Negative [place]/uL (NEGATIVE) 08/12/17 11:05 Urine RBC 5 - 10 /hpf (0-2) 08/12/17 11:05 Urine WBC 1 - 3 /hpf (0-6) 08/12/17 11:05 Ur Epithelial Cells 1 - 3 /hpf (0-5) 08/06/17 18:21 Amorphous Sediment Moderate 08/06/17 18:21 Urine Bacteria Small (NEG) 08/12/17 11:05 Influenza Typ A,B (EIA) Negative for flu a/b (NEGATIVE) 08/06/17 19:55 Blood Type B POSITIVE 08/06/17 18:02 Antibody Screen Negative 08/06/17 18:02 Crossmatch See Detail 08/06/17 18:02 BBK History Checked Patient has bt 08/06/17 18:02 - Constitutional Appears: Well, No Acute Distress - Head Exam Head Exam: ATRAUMATIC, NORMAL INSPECTION, NORMOCEPHALIC - Eye Exam Eye Exam: Normal appearance - ENT Exam ENT Exam: Normal External Ear Exam - Neck Exam Neck Exam: Normal Inspection - Respiratory Exam Respiratory Exam: Clear to Ausculation Bilateral, NORMAL BREATHING PATTERN. absent: Accessory Muscle Use, Rales, Rhonchi, Wheezes, Respiratory Distress, Stridor - Cardiovascular Exam Cardiovascular Exam: REGULAR RHYTHM. absent: Diastolic murmur, JVD - GI/Abdominal Exam GI & Abdominal Exam: absent: Distended - Rectal Exam Rectal Exam: Deferred - Exam Additional comments: Deferred. - Extremities Exam Extremities Exam: Normal Inspection - Back Exam Back Exam: NORMAL INSPECTION - Neurological Exam Neurological Exam: Alert, Oriented x3 - Psychiatric Exam Psychiatric exam: Normal Affect, Normal Mood - Skin Skin Exam: Normal Color Assessment and Plan - Assessment and Plan (Free Text) Assessment: Chest pain. Gastritis.? Metastatic ovarian cancer. Multiple sclerosis. Leukocytosis. Anemia. Elevated LFT's. Hypercalcemia. Plan: EKG----> paced rhythm , no significan difference in comparision with Aug 06 EKG. Troponin stat. Sublingual nitroglycerin 0.4 mg Q5M prn x 3 ---> After receiving 3 tabs she felt better. Protonix as ordered. Discussed with . Serial trops ,EKG. Cardiology consultation with .
[2017-08-15] MEDS ORDERED: Pantoprazole 40 mg EC Tab PO STA (05:29)
[2017-08-15] MEDS ORDERED: guaiFENesin 100 mg/5 ml Syrup UD PO ONE (05:41)
[2017-08-15] MEDS: Nystatin 100,000 Units/ml Oral Susp 5 ml UD PO SCH ×5 (05:54→21:05)
[2017-08-15] MEDS: Meropenem 1g/NS 100mL IVPB 1 GM/100 ML PIGGYBACK IVPB SCH ×3 (05:54→21:05)
[2017-08-15] MEDS: Morphine 4 mg/ml ISec IV PRN ×2 (05:54→15:58)
--- NOTE | 2017-08-15 06:33 | CP.PCM.PN ---
Subjective - Date & Time of Evaluation Date of Evaluation: 08/15/17 Time of Evaluation: 06:33 - Subjective Subjective: draft Objective - Vital Signs/Intake and Output Vital Signs (last 24 hours): Temp Pulse Resp BP Pulse Ox 98.3 F 90 19 139/95 H 97 08/14/17 16:00 08/14/17 16:00 08/14/17 16:00 08/14/17 16:00 08/14/17 16:00 Intake and Output: 08/14/17 08/15/17 18:59 06:59 Intake Total 660 180 Output Total 925 600 Balance -265 -420 - Medications Medications: Current Medications Acetaminophen (Tylenol 325mg Tab) 650 mg PO Q4 PRN PRN Reason: Fever >100.4 F Last Admin: 08/12/17 06:04 Dose: 650 mg Atenolol (Tenormin) 25 mg PO DAILY [facility] Last Admin: 08/14/17 09:33 Dose: 25 mg Benzonatate (Tessalon Perles) 100 mg PO TID [facility] Last Admin: 08/14/17 16:59 Dose: 100 mg Enoxaparin Sodium (Lovenox) 70 mg SC BID [facility] PRN Reason: Protocol Last Admin: 08/14/17 16:59 Dose: 70 mg Fluticasone Propionate (Flonase) 1 actuation NS DAILY [facility] Last Admin: 08/14/17 09:32 Dose: 1 spr Furosemide (Lasix) 40 mg IVP DAILY [facility] Last Admin: 08/14/17 09:33 Dose: 40 mg Vancomycin HCl (Vancomycin 1gm) 1 gm in 250 mls @ 167 mls/hr IVPB Q12H [facility] PRN Reason: Protocol Stop: 08/26/17 10:16 Last Admin: 08/14/17 23:12 Dose: 167 mls/hr Meropenem/Sodium Chloride (Meropenem 1g/Ns 100ml Ivpb) 1 gm in 100 mls @ 100 mls/hr IVPB Q8 [facility] PRN Reason: Protocol Stop: 08/21/17 14:01 Last Admin: 08/15/17 05:54 Dose: 100 mls/hr Levalbuterol HCl (Xopenex) 0.63 mg IH TIDRESP [facility] Last Admin: 08/14/17 22:56 Dose: 0.63 mg Lidocaine/Prilocaine (Emla) 0 gm TOP TID PRN PRN Reason: Pain, Mild (1-3) Last Admin: 08/14/17 09:35 Dose: 1 applic Magnesium Oxide (Mag-Ox) 400 mg PO BID [facility] Last Admin: 08/14/17 16:59 Dose: 400 mg Methylprednisolone (Solu-Medrol) 20 mg IV Q12 [facility] Last Admin: 08/14/17 21:46 Dose: 20 mg Morphine Sulfate (Morphine) 4 mg IV Q4H PRN PRN Reason: Pain, moderate (4-7) Last Admin: 08/15/17 05:54 Dose: 4 mg Mupirocin (Bactroban Ointment) 1 gm TOP BID [facility] Last Admin: 08/14/17 17:00 Dose: 1 applic Glatiramer Acetate [ (Copaxone] 40 Mg) 40 mg SQ MWF [facility] Last Admin: 08/14/17 14:30 Dose: Not Given Tapentadol Hcl [ (Nucynta] 100 Mg) 100 mg PO TID [facility] Last Admin: 08/14/17 17:01 Dose: Not Given Tapentadol Hcl [ (Nucynta Er] 150 Mg) 150 mg PO Q12H [facility] Last Admin: 08/15/17 05:22 Dose: Not Given Nystatin (Nystatin Oral Susp) 5 ml PO 5XD [facility] Last Admin: 08/15/17 05:54 Dose: 5 ml Ondansetron HCl (Zofran Inj) 4 mg IVP Q6H PRN PRN Reason: Nausea/Vomiting Last Admin: 08/09/17 21:52 Dose: 4 mg Polyethylene Glycol (Miralax) 17 gm PO DAILY [facility] Last Admin: 08/14/17 09:34 Dose: 17 gm Sucralfate (Carafate Oral Susp) 1 gm PO TID [facility] Last Admin: 08/14/17 16:59 Dose: 1 gm - Labs Labs: 08/13/17 07:00 08/13/17 07:00 PT 13.4 SECONDS (9.4-12.5) H 08/06/17 15:30 INR 1.17 (0.93-1.08) H 08/06/17 15:30 APTT 46.9 Seconds (25.1-36.5) H 08/06/17 15:30
[2017-08-15] MEDS: Levalbuterol 0.63 MG/3 ML Inhal Soln UD IH SCH ×3 (07:24→20:00)
[2017-08-15] MEDS: Magnesium Oxide 400 mg Tab UD PO SCH ×2 (09:47→17:28)
[2017-08-15] MEDS: Sucralfate 1 gm/10 ml Oral Susp UD PO SCH ×3 (09:48→17:28)
[2017-08-15] MEDS: Enoxaparin 80 mg Syringe SC SCH ×2 (09:48→17:31)
[2017-08-15] MEDS: POLYETHYLENE GLYCOL 3350 17 GM/Dose PACKET PO SCH ×2 (09:48→13:13)
[2017-08-15] MEDS: MethylPREDNISolone 40 mg Vial IV SCH ×2 (09:48→21:06)
[2017-08-15] MEDS: Fluticasone Nasal 50 mcg/Spray NS SCH (09:50)
[2017-08-15] MEDS: Vancomycin 1gm in NS 250ml 1 GM/250 ML BAG IVPB SCH ×2 (09:52→22:19)
--- NOTE | 2017-08-15 10:42 | CP.PCM.PN ---
Subjective - Date & Time of Evaluation Date of Evaluation: 08/15/17 Time of Evaluation: 10:38 - Subjective Subjective: Podiatry Progress Note - Dr. Rosales 62 year old female patient seen and evaluated at bedside for left leg wounds. Patient more lethargic this visit. No acute events overnight. GRAEME Palmer present bilaterally with dressings clean/dry/intact. No complaints to left leg wounds this visit. Objective - Vital Signs/Intake and Output Vital Signs (last 24 hours): Temp Pulse Resp BP Pulse Ox 99.6 F 100 H 20 145/95 H 97 08/15/17 08:09 08/15/17 09:46 08/15/17 08:09 08/15/17 09:47 08/15/17 08:09 Intake and Output: 08/15/17 08/15/17 06:59 18:59 Intake Total 360 Output Total 975 Balance -615 - Medications Medications: Current Medications Acetaminophen (Tylenol 325mg Tab) 650 mg PO Q4 PRN PRN Reason: Fever >100.4 F Last Admin: 08/12/17 06:04 Dose: 650 mg Atenolol (Tenormin) 25 mg PO DAILY [facility] Last Admin: 08/15/17 09:46 Dose: 25 mg Benzonatate (Tessalon Perles) 100 mg PO TID [facility] Last Admin: 08/15/17 09:47 Dose: 100 mg Enoxaparin Sodium (Lovenox) 70 mg SC BID [facility] PRN Reason: Protocol Last Admin: 08/15/17 09:48 Dose: 70 mg Fluticasone Propionate (Flonase) 1 actuation NS DAILY [facility] Last Admin: 08/15/17 09:50 Dose: 1 spr Furosemide (Lasix) 40 mg IVP DAILY [facility] Last Admin: 08/15/17 09:47 Dose: 40 mg Vancomycin HCl (Vancomycin 1gm) 1 gm in 250 mls @ 167 mls/hr IVPB Q12H [facility] PRN Reason: Protocol Stop: 08/26/17 10:16 Last Admin: 08/15/17 09:52 Dose: 167 mls/hr Meropenem/Sodium Chloride (Meropenem 1g/Ns 100ml Ivpb) 1 gm in 100 mls @ 100 mls/hr IVPB Q8 [facility] PRN Reason: Protocol Stop: 08/21/17 14:01 Last Admin: 08/15/17 05:54 Dose: 100 mls/hr Levalbuterol HCl (Xopenex) 0.63 mg IH TIDRESP [facility] Last Admin: 08/15/17 07:24 Dose: 0.63 mg Lidocaine/Prilocaine (Emla) 0 gm TOP TID PRN PRN Reason: Pain, Mild (1-3) Last Admin: 08/14/17 09:35 Dose: 1 applic Magnesium Oxide (Mag-Ox) 400 mg PO BID [facility] Last Admin: 08/15/17 09:47 Dose: 400 mg Methylprednisolone (Solu-Medrol) 20 mg IV Q12 [facility] Last Admin: 08/15/17 09:48 Dose: 20 mg Morphine Sulfate (Morphine) 4 mg IV Q4H PRN PRN Reason: Pain, moderate (4-7) Last Admin: 08/15/17 05:54 Dose: 4 mg Mupirocin (Bactroban Ointment) 1 gm TOP BID [facility] Last Admin: 08/15/17 09:49 Dose: 1 applic Glatiramer Acetate [ (Copaxone] 40 Mg) 40 mg SQ MWF [facility] Last Admin: 08/14/17 14:30 Dose: Not Given Tapentadol Hcl [ (Nucynta] 100 Mg) 100 mg PO TID [facility] Last Admin: 08/15/17 09:50 Dose: Not Given Tapentadol Hcl [ (Nucynta Er] 150 Mg) 150 mg PO Q12H [facility] Last Admin: 08/15/17 05:22 Dose: Not Given Nystatin (Nystatin Oral Susp) 5 ml PO 5XD [facility] Last Admin: 08/15/17 09:48 Dose: 5 ml Ondansetron HCl (Zofran Inj) 4 mg IVP Q6H PRN PRN Reason: Nausea/Vomiting Last Admin: 08/09/17 21:52 Dose: 4 mg Polyethylene Glycol (Miralax) 17 gm PO DAILY [facility] Last Admin: 08/15/17 09:48 Dose: 17 gm Sucralfate (Carafate Oral Susp) 1 gm PO TID [facility] Last Admin: 08/15/17 09:48 Dose: 1 gm - Labs Labs: 08/13/17 07:00 08/13/17 07:00 PT 13.4 SECONDS (9.4-12.5) H 08/06/17 15:30 INR 1.17 (0.93-1.08) H 08/06/17 15:30 APTT 46.9 Seconds (25.1-36.5) H 08/06/17 15:30 - Constitutional Appears: Well, Non-toxic, No Acute Distress - Extremities Exam Additional comments: Bilateral LE exam: VASC: DP/PT pulses are palpable 1/4, Cap refill time: < 3 sec to all digits, Temp gradient: warm to cool from proximal to distal, no edema noted DERM: 2 wounds present on the distal medial leg and one on the distal anterior aspect. Proximal wound measures approx 0.8cm x 0.5cm x 0.1cm with minimal serosanguinous drainage, distal medial wound measures approx. 0.5cm x 0.5cm x 0.1 cm, distal anterior wound has epithelialized. All wound beds are noted to have a granular base and hyperpigmented rim, no tunneling, no undermining, no purulence, no malodor, no dejah-wound erythema NEURO: Protective sensation grossly intact ORTHO: no pain on palpation of the wound, MMT: 5/5 in all 4 compartment - Neurological Exam Neurological Exam: Alert, Awake, Oriented x3 - Psychiatric Exam Psychiatric exam: Normal Affect, Normal Mood Assessment and Plan - Assessment and Plan (Free Text) Assessment: 62 year old female patient with Stage III LLE ulcerations x2, improving Plan: Patient seen and evaluated at bedside with attending, Dr. Rosales Afebrile Left leg wound culture (08/08/17) reveals growth of staphylococcus aureus Bilateral venous duplex ordered r/o DVT - Negative for DVT b/l, superficial thrombophlebitis in proximal left saphenous vein Continue local wound care - Allevyn pads to both wounds Wounds appear stable at this time Continue GRAEME Hose Continue abx per ID - Vancomycin and Merrem (day 10)- complete 10-14 days of antibiotics Pain control - Morphine, Emla TD Patient may follow up at wound care center once discharged Podiatry will continue to follow while patient in house
--- NOTE | 2017-08-15 16:06 | PN ---
DATE: SUBJECTIVE: The patient is a 62-year-old, seen and examined. Last night events noted. The patient complained of chest pain this morning. She was given sublingual nitroglycerin with significant relief. Troponin was ordered, was negative. The patient does complain of being constipated. PHYSICAL EXAMINATION VITAL SIGNS: She has temperature of 99.6, pulse 105, respirations 20, blood pressure 145/95. LUNGS: Bilateral fair airflow. No rhonchi or crackles. HEART: S1 and S2 audible. ABDOMEN: Soft. Slight palpable discomfort in epigastric area and left upper quadrant area. Her ileal conduit is working. NEUROLOGICAL: She is awake and alert and communicative. EXTREMITIES: Her left kyle ulcers are granulating. LABORATORY DATA: Her troponin 1st is negative. Abdominal ultrasound was done because of abnormal LFTs that showed bilateral hydronephrosis and cholelithiasis. ASSESSMENT AND PLAN: Chest pain, etiology unclear yet. The patient responded to nitroglycerin. I will start her on Imdur. Dr. Granado to see the patient. We will continue the patient on Carafate. She is on isosorbide. She is on Lasix and Lovenox for her right saphenous vein thrombophlebitis. We will continue on meropenem. The patient also has a history of metastatic ovarian carcinoma and status post two chemotherapies. We will continue her on atenolol. She is on vancomycin and I will start her on MiraLax. Also, request Dr. Russ to evaluate the patient. Kimberley Hernadez MD
--- NOTE | 2017-08-15 16:11 | CP.PCM.PN ---
Subjective - Date & Time of Evaluation Date of Evaluation: 08/15/17 Time of Evaluation: 10:30 - Subjective Subjective: No diarrhea, no fevers. Left leg feels a little better. Objective - Vital Signs/Intake and Output Vital Signs (last 24 hours): Temp Pulse Resp BP Pulse Ox 99.6 F 105 H 20 145/99 H 97 08/15/17 08:09 08/15/17 08:09 08/15/17 08:09 08/15/17 08:09 08/15/17 08:09 Intake and Output: 08/15/17 08/15/17 06:59 18:59 Intake Total 360 Output Total 975 Balance -615 - Medications Medications: Current Medications Acetaminophen (Tylenol 325mg Tab) 650 mg PO Q4 PRN PRN Reason: Fever >100.4 F Last Admin: 08/12/17 06:04 Dose: 650 mg Atenolol (Tenormin) 25 mg PO DAILY [facility] Last Admin: 08/14/17 09:33 Dose: 25 mg Benzonatate (Tessalon Perles) 100 mg PO TID [facility] Last Admin: 08/14/17 16:59 Dose: 100 mg Enoxaparin Sodium (Lovenox) 70 mg SC BID [facility] PRN Reason: Protocol Last Admin: 08/14/17 16:59 Dose: 70 mg Fluticasone Propionate (Flonase) 1 actuation NS DAILY [facility] Last Admin: 08/14/17 09:32 Dose: 1 spr Furosemide (Lasix) 40 mg IVP DAILY [facility] Last Admin: 08/14/17 09:33 Dose: 40 mg Vancomycin HCl (Vancomycin 1gm) 1 gm in 250 mls @ 167 mls/hr IVPB Q12H [facility] PRN Reason: Protocol Stop: 08/26/17 10:16 Last Admin: 08/14/17 23:12 Dose: 167 mls/hr Meropenem/Sodium Chloride (Meropenem 1g/Ns 100ml Ivpb) 1 gm in 100 mls @ 100 mls/hr IVPB Q8 [facility] PRN Reason: Protocol Stop: 08/21/17 14:01 Last Admin: 08/15/17 05:54 Dose: 100 mls/hr Levalbuterol HCl (Xopenex) 0.63 mg IH TIDRESP [facility] Last Admin: 08/15/17 07:24 Dose: 0.63 mg Lidocaine/Prilocaine (Emla) 0 gm TOP TID PRN PRN Reason: Pain, Mild (1-3) Last Admin: 08/14/17 09:35 Dose: 1 applic Magnesium Oxide (Mag-Ox) 400 mg PO BID [facility] Last Admin: 08/14/17 16:59 Dose: 400 mg Methylprednisolone (Solu-Medrol) 20 mg IV Q12 [facility] Last Admin: 08/14/17 21:46 Dose: 20 mg Morphine Sulfate (Morphine) 4 mg IV Q4H PRN PRN Reason: Pain, moderate (4-7) Last Admin: 08/15/17 05:54 Dose: 4 mg Mupirocin (Bactroban Ointment) 1 gm TOP BID [facility] Last Admin: 08/14/17 17:00 Dose: 1 applic Glatiramer Acetate [ (Copaxone] 40 Mg) 40 mg SQ MWF [facility] Last Admin: 08/14/17 14:30 Dose: Not Given Tapentadol Hcl [ (Nucynta] 100 Mg) 100 mg PO TID [facility] Last Admin: 08/14/17 17:01 Dose: Not Given Tapentadol Hcl [ (Nucynta Er] 150 Mg) 150 mg PO Q12H [facility] Last Admin: 08/15/17 05:22 Dose: Not Given Nystatin (Nystatin Oral Susp) 5 ml PO 5XD [facility] Last Admin: 08/15/17 05:54 Dose: 5 ml Ondansetron HCl (Zofran Inj) 4 mg IVP Q6H PRN PRN Reason: Nausea/Vomiting Last Admin: 08/09/17 21:52 Dose: 4 mg Polyethylene Glycol (Miralax) 17 gm PO DAILY [facility] Last Admin: 08/14/17 09:34 Dose: 17 gm Sucralfate (Carafate Oral Susp) 1 gm PO TID [facility] Last Admin: 08/14/17 16:59 Dose: 1 gm - Labs Labs: 08/13/17 07:00 08/13/17 07:00 PT 13.4 SECONDS (9.4-12.5) H 08/06/17 15:30 INR 1.17 (0.93-1.08) H 08/06/17 15:30 APTT 46.9 Seconds (25.1-36.5) H 02/11/18 15:30 - Constitutional Appears: Chronically Ill - Head Exam Head Exam: NORMAL INSPECTION - ENT Exam ENT Exam: Mucous Membranes Moist - Neck Exam Neck Exam: absent: Meningismus - Respiratory Exam Respiratory Exam: Decreased Breath Sounds - Cardiovascular Exam Cardiovascular Exam: +S1, +S2 - GI/Abdominal Exam GI & Abdominal Exam: Soft. absent: Tenderness - Extremities Exam Additional comments: lower extremities with dressings in place Assessment and Plan - Assessment and Plan (Free Text) Plan: Assessment E. coli bacteremia S/P Febrile neutropenia right leg infection with MSSA history of bilateral inguinal area skin and skin structure infection associated with ovarian cancer metastasis S/P I and D history of chronic left leg ulcers, infected with Pseudomonas and Proteus mirabilis urinary bladder / urethral cancer ovarian cancer multiple sclerosis S/P pacemaker placement S/P right sided port-a-cath placement Plan continue Vancomycin and Merrem (day 10)- complete 10-14 days of antibiotics overall prognosis is poor
--- NOTE | 2017-08-16 00:14 | CON ---
DATE: 08/15/2017 CARDIOLOGY CONSULTATION HISTORY: The patient is a 62-year-old woman, who presents with a documented history of ovarian CA with metastases to her lymph nodes. The patient's past medical history includes a PTCA and stent 1 year ago with bare-metal stent given her need for procedure. She was placed on Plavix for 1 month and discontinued so that she can have her procedure relative to her cancer. She now complains of a chest discomfort. Her troponin so far had been 0.04. EKG is unrevealing. REVIEW OF SYSTEMS: A 14-point review of systems is reviewed in detail. There is no dyspnea, but she does complain of this intermittent chest pain. PHYSICAL EXAMINATION: VITAL SIGNS: Stable. NECK: Negative JVD. LUNGS: Without rales. HEART: With S1, S2. EXTREMITIES: Without edema. LABORATORY DATA: Troponin is 0.04. EKG shows no acute changes. IMPRESSION: 1. Recurrent angina. 2. Coronary artery disease. 3. History of bare-metal stent 1 year ago. 4. Metastatic ovarian cancer. 5. Hypercholesterolemia. PLAN: Given these findings, given her comorbidities, we will attempt to try to treat her angina medically. We will add Imdur to her regimen. We will add beta-blockers as well as aspirin. If the patient continues to experience chest pain despite medical therapy, we may need to proceed with cardiac catheterization. I have discussed this with the patient and family in detail. Kwame Granado MD
--- NOTE | 2017-08-16 02:15 | CARD ---
APPROVED REPORT EKG Measurement Heart [id number] [place] 128P47 [id number] <Conclusion> Atrial sensed, ventricular paced rhythm
--- NOTE | 2017-08-16 02:34 | CARD ---
APPROVED REPORT EKG Measurement Heart [id number] [place] 124P50 [id number] <Conclusion> Atrial sensed, ventricular paced rhythmr
--- NOTE | 2017-08-16 02:43 | CARD ---
APPROVED REPORT EKG Measurement Heart [id number] [place] 118P60 [id number] <Conclusion> Atria sensed , ventricular paced rhythm
[2017-08-16] MEDS: Morphine 4 mg/ml ISec IV PRN ×3 (03:32→17:53)
[2017-08-16] MEDS: Meropenem 1g/NS 100mL IVPB 1 GM/100 ML PIGGYBACK IVPB SCH ×3 (06:01→21:25)
[2017-08-16] MEDS: Nystatin 100,000 Units/ml Oral Susp 5 ml UD PO SCH ×5 (06:01→21:25)
[2017-08-16 06:54] LABS: HEMOGLOBIN 10.4 g/dL (12.0-16.0); LYMPH % 7.3 % (22.0-35.0); MEAN CELL VOLUME 94.4 fl (80.0-105.0); MEAN CORPUSCULAR HEMOGLOBIN 29.1 pg (25.0-35.0); MEAN CORPUSCULAR HGB CONC 30.9 g/dl (31.0-37.0); MEAN PLATELET VOLUME 10.7 fl (7.0-11.0); MONO % 7.4 % (1.0-6.0); PLATELET COUNT 166 10^3/uL (120.0-450.0); RBC 3.57 10^6/uL (3.5-6.1); RED CELL DISTRIBUTION WIDTH 16.6 % (11.5-14.5)
[2017-08-16 06:55] LABS: BLOOD UREA NITROGEN 34 mg/dL (7-21); CALCIUM 9.4 mg/dL (8.4-10.5); GFR AFRICAN-AMERICAN > 60; GFR NON-AFRICAN AMERICAN > 60
[2017-08-16 06:57] LABS: WHITE BLOOD COUNT 26.7 10^3/ul (4.5-11.0)
[2017-08-16] MEDS: Levalbuterol 0.63 MG/3 ML Inhal Soln UD IH SCH ×3 (08:17→19:52)
[2017-08-16] MEDS: MethylPREDNISolone 40 mg Vial IV SCH (09:25)
--- NOTE | 2017-08-16 09:27 | CP.PCM.CON ---
History of Present Illness - History of Present Illness History of Present Illness: Palliative consult requested by Dr Felicia Hernadez Reason: Goals of care /advance care panning. 62 year old female with history of MS, cardiomyopathy, metastatic ovarian cancer , past bladder cancer who presented with fever, cough, weakness and epigastric pain She is currently relieving chemotherapy> last treatment a week ago. She complains of nausea secondary to chemotherapy. Her epigastric pain has been ongoing but she described it as worsening prior to admission. She also reports coughing specks of blood in sputum and constipation with dark, hard stools. She denies headache, chills, vomiting diarrhea. She has chronic neuropathy of hands and feet. Chest x ray showed no active disease. CT scan of abdomen revealed pelvic mass which increased in size since last study, mild colitis vs underdistention. Labs: pancytopenia, elevated LFT's , hypercalcemia PMHX: MS,metastatic ovarian cancer, bladder cancer s/p right urostomy tube, partial hysterectomy,cardiomyopathy s/p pacemaker/defibrillator, dysphagia s/p PEG Social History: Never smoker, no alcohol or drug use. Family History: Non contributory. Advance Care Planning: The patient does not have and Advanced Directive. Review of Systems: As per HPI, otherwise negative 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 - HEENT Hx HEENT Problems: No Other/Comment: wears glasses - RENAL Hx Chronic Kidney Disease: Yes Other/Comment: bladder stones/ cancer - ENDOCRINE/METABOLIC Hx Endocrine Disorders: No - HEMATOLOGICAL/ONCOLOGICAL Hx Blood Transfusions: No Hx Blood Transfusion Reaction: No - INTEGUMENTARY Hx Dermatological Problems: No - MUSCULOSKELETAL/RHEUMATOLOGICAL Hx Musculoskeletal Disorders: Yes - GASTROINTESTINAL Hx Gastrointestinal Disorders: Yes Hx Gastroesophageal Reflux: Yes Hx Vomiting: No - GENITOURINARY/GYNECOLOGICAL Hx Genitourinary Disorders: Yes Hx Bladder Cancer: Yes Hx Bladder Stone: Yes Hx Ovarian Cancer: Yes Other/Comment: + R side urostomy - PSYCHIATRIC Hx Emotional Abuse: No Hx Physical Abuse: No Hx Substance Use: No - SURGICAL HISTORY Other/Comment: Gtube reversal. R side urostomy. L side pacemaker/ defibrillator. Partial hysterectomy. Bladder cancer resection - ANESTHESIA Hx Anesthesia Reactions: No Hx Malignant Hyperthermia: No Meds Allergies/Adverse Reactions: Allergies Allergy/AdvReac Type Severity Reaction Status Date / Time No Known Allergies Allergy Verified 08/06/17 14:23 - Medications Medications: Current Medications Acetaminophen (Tylenol 325mg Tab) 650 mg PO Q4 PRN PRN Reason: Fever >100.4 F Last Admin: 08/12/17 06:04 Dose: 650 mg Aspirin (Ecotrin) 81 mg PO DAILY [facility] Atenolol (Tenormin) 25 mg PO DAILY [facility] Last Admin: 08/15/17 09:46 Dose: 25 mg Benzonatate (Tessalon Perles) 100 mg PO TID [facility] Last Admin: 08/15/17 17:28 Dose: 100 mg Enoxaparin Sodium (Lovenox) 70 mg SC BID [facility] PRN Reason: Protocol Last Admin: 08/15/17 17:31 Dose: 70 mg Fluticasone Propionate (Flonase) 1 actuation NS DAILY [facility] Last Admin: 08/15/17 09:50 Dose: 1 spr Furosemide (Lasix) 40 mg IVP DAILY [facility] Last Admin: 08/15/17 09:47 Dose: 40 mg Vancomycin HCl (Vancomycin 1gm) 1 gm in 250 mls @ 167 mls/hr IVPB Q12H [facility] PRN Reason: Protocol Stop: 08/26/17 10:16 Last Admin: 08/15/17 22:19 Dose: 167 mls/hr Meropenem/Sodium Chloride (Meropenem 1g/Ns 100ml Ivpb) 1 gm in 100 mls @ 100 mls/hr IVPB Q8 [facility] PRN Reason: Protocol Stop: 08/21/17 14:01 Last Admin: 08/16/17 06:01 Dose: 100 mls/hr Isosorbide Mononitrate (Imdur) 60 mg PO DAILY [facility] Levalbuterol HCl (Xopenex) 0.63 mg IH TIDRESP [facility] Last Admin: 08/16/17 08:17 Dose: Not Given Lidocaine/Prilocaine (Emla) 0 gm TOP TID PRN PRN Reason: Pain, Mild (1-3) Last Admin: 08/14/17 09:35 Dose: 1 applic Magnesium Oxide (Mag-Ox) 400 mg PO BID [facility] Last Admin: 08/15/17 17:28 Dose: 400 mg Methylprednisolone (Solu-Medrol) 20 mg IV Q12 [facility] Last Admin: 08/15/17 21:06 Dose: 20 mg Metoprolol Tartrate (Lopressor) 25 mg PO BID [facility] Last Admin: 08/15/17 17:29 Dose: 25 mg Morphine Sulfate (Morphine) 4 mg IV Q4H PRN PRN Reason: Pain, moderate (4-7) Last Admin: 08/16/17 03:32 Dose: 4 mg Mupirocin (Bactroban Ointment) 1 gm TOP BID [facility] Last Admin: 08/15/17 09:49 Dose: 1 applic Glatiramer Acetate [ (Copaxone] 40 Mg) 40 mg SQ MWF [facility] Last Admin: 08/14/17 14:30 Dose: Not Given Tapentadol Hcl [ (Nucynta] 100 Mg) 100 mg PO TID [facility] Last Admin: 08/15/17 09:50 Dose: Not Given Tapentadol Hcl [ (Nucynta Er] 150 Mg) 150 mg PO Q12H [facility] Last Admin: 08/16/17 06:02 Dose: Not Given Nystatin (Nystatin Oral Susp) 5 ml PO 5XD [facility] Last Admin: 08/16/17 06:01 Dose: 5 ml Ondansetron HCl (Zofran Inj) 4 mg IVP Q6H PRN PRN Reason: Nausea/Vomiting Last Admin: 08/09/17 21:52 Dose: 4 mg Polyethylene Glycol (Miralax) 17 gm PO DAILY [facility] Last Admin: 08/15/17 13:13 Dose: 17 gm Sucralfate (Carafate Oral Susp) 1 gm PO TID [facility] Last Admin: 08/15/17 17:28 Dose: 1 gm Results - Vital Signs Recent Vital Signs: Last Vital Signs Temp 97.7 F 08/16/17 08:08 Pulse 82 08/16/17 08:08 Resp 20 08/16/17 08:08 BP 128/93 H 08/16/17 08:08 Pulse Ox 100 08/16/17 08:08 - Labs Result Diagrams: 08/16/17 06:15 08/16/17 06:15 Labs: Laboratory Results - last 24 hr 08/15/17 08/15/17 08/16/17 12:10 19:05 06:15 WBC 26.7 H* D RBC 3.57 Hgb 10.4 L Hct 33.7 L MCV 94.4 MCH 29.1 MCHC 30.9 L RDW 16.6 H Plt Count 166 MPV 10.7 Lymph % (Auto) 7.3 L Curry % (Auto) 7.4 H Eos % (Auto) 0.0 L Lymph # (Auto) 2.0 Curry # (Auto) 2.0 H Eos # (Auto) 0.0 Sodium Potassium Chloride Carbon Dioxide Anion Gap BUN Creatinine Est GFR ( Amer) Est GFR (Non-Af Amer) Random Glucose Calcium Troponin I 0.04 0.04 08/16/17 06:15 WBC RBC Hgb Hct MCV MCH MCHC RDW Plt Count MPV Lymph % (Auto) Curry % (Auto) Eos % (Auto) Lymph # (Auto) Curry # (Auto) Eos # (Auto) Sodium 143 Potassium 4.5 Chloride 100 Carbon Dioxide 36 H Anion Gap 13 BUN 34 H Creatinine 0.8 Est GFR ( Amer) > 60 Est GFR (Non-Af Amer) > 60 Random Glucose 93 Calcium 9.4 Troponin I Assessment & Plan - Assessment and Plan (Free Text) Assessment: 62 year old female with hsity of MS, s/p bladder cancer, metastatic ovarian cancer who is admitted with abdominal guardado, pancytopenia and sepsis 62 year old female with history of MS, metastatic ovarian cancer, past bladder cancer,cardiomyopathy who is admitted with febrile neutropenia,deconditioning and epigastric pain The patient is alert, oriented of pleasant demeanor. She has been receiving chemotherapy, her last treatment was about one week ago. She has chronic epigastric pain and weakness. The patient is aware of her medical situation and prognosis. The patient states she no longer wishes to continue chemotherapy. She has expressed interest in transitioning to hospice care. Hospice services explained in detail. Questions answered. She states she would like to transition to home hospice. She explained that her sisters are supportive of her wishes but that her was having a hard time accepting her decision. She affirms that her sister Gia Spears is her health care POA. Ms. Head states that she is DNR/DNI and that she has an advanced directive at home. POLST directive explained. Patient completed POLST: DNR/DNI, a copy is placed in the chart. The patient has decided that she will speak with her regarding her wishes. She has asked that I also speak with him. Family meeting to be arranged. In the interim, she states she is willing to go to [facility] for rehab before transitioning to home hospice.Felicia FINLEY also present during my conversation with this patient. Psychosocial support provided. Time spent in goals of care and advance care planning with patient, 30 minutes Plan: Palliative support in establishing goals of care. [ POLST: DNR/DNI Psychosocial distress; Family meeting planned to assist with transitioning to hospice, also referred to Felicia FINLEY for additional follow up
[2017-08-16] MEDS: Vancomycin 1gm in NS 250ml 1 GM/250 ML BAG IVPB SCH ×2 (09:28→22:40)
[2017-08-16] MEDS: POLYETHYLENE GLYCOL 3350 17 GM/Dose PACKET PO SCH ×2 (09:29→17:05)
[2017-08-16] MEDS: Enoxaparin 80 mg Syringe SC SCH (09:30)
[2017-08-16] MEDS: Magnesium Oxide 400 mg Tab UD PO SCH ×2 (09:30→17:04)
[2017-08-16] MEDS: Fluticasone Nasal 50 mcg/Spray NS SCH (09:36)
[2017-08-16] MEDS: Sucralfate 1 gm/10 ml Oral Susp UD PO SCH ×3 (09:36→17:01)
[2017-08-16 10:11] LABS: ALB/GLOB RATIO 1.2 (1.1-1.8); ALBUMIN 3.4 g/dL (3.0-4.8); BILIRUBIN,DIRECT 0.2 mg/dL (0.0-0.4)
--- NOTE | 2017-08-16 12:02 | PN ---
DATE: 08/16/2017 CARDIOLOGY FOLLOWUP SUBJECTIVE: The patient complains of chest discomfort, improved with sitting up, but continues to have chest pain. PHYSICAL EXAMINATION VITAL SIGNS: Stable. NECK: Negative JVD. LUNGS: Without rales. HEART: Reveals S1 and S2. EXTREMITIES: Without edema. LABORATORY DATA: The troponins of 0.04. The hemoglobin is 10.4. IMPRESSION AND PLAN: Recurrent chest pain, which we cannot rule out as a cardiac cause. We have tried her on multiple antianginal medications which is not helped. We will give her a trial of IV Protonix. If her pain continues, I have discussed with the patient about the need to rule out coronary artery disease. We will schedule her for the cardiac catheterization in the morning. Kwame Granado MD
--- NOTE | 2017-08-16 12:48 | CP.PCM.CON ---
<Annie Layton - Last Filed: 08/16/17 12:48> History of Present Illness - History of Present Illness History of Present Illness: Seen and examined at the bedside earlier this morning, chart reviewed. Request for GI consult is for elevated LFTs. HPI: This is a 62-year-old female with a past medical history of metastatic ovarian cancer, bladder cancer status post ileal conduit, came to the emergency room with complaints of fever, abdominal discomfort and generalized weakness. The patient reports epigastric/chest discomfort. Denies shortness of breath. Patient status post chemotherapy almost 2 weeks ago. The patient also was complaining of constipation, she was given Relistor during this admission and her last bowel movement was this morning, formed stool no melena or bright red blood. Reports a fair appetite her weight fluctuates. On review of labs the patient is noted to have elevated liver enzymes. Her troponin is borderline. This patient did have recent endoscopy on 07/05/2017 found to have normal duodenum, slightly angulated stomach and observed decrease gastric motility. No biopsies were obtained. on admission she had a CT scan of abdomen and pelvis with no IV or oral contrast and this reported pelvic mass, patient with known history of ovarian cancer with size minimally increase, colitis versus under distention and fluid/stool in the colon. She did also have a chest SNOW which was negative for PE, an abdominal ultrasound on 08/13 which did show gallstones, the common bile duct measured 5 mm, and hydronephrosis.hepatitis panel done which was negative on May/2017. Past medical history: History of dysphagia with history of PEG placement now removed. Multiple sclerosis, cardiomyopathy, metastatic ovarian cancer, bladder cancer status post ileal conduit, pentyl cytopenia. Surgical history: Ileal conduit, 06/2017 EGD Allergies: No known drug allergies Family history: Noncontributory at this time Medications: Reviewed as per MAR Social history: Denies tobacco use, EtOH or drug use ROS: Systems reviewed positive finding see HPI 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 - HEENT Hx HEENT Problems: No Other/Comment: wears glasses - RENAL Hx Chronic Kidney Disease: Yes Other/Comment: bladder stones/ cancer - ENDOCRINE/METABOLIC Hx Endocrine Disorders: No - HEMATOLOGICAL/ONCOLOGICAL Hx Blood Transfusions: No Hx Blood Transfusion Reaction: No - INTEGUMENTARY Hx Dermatological Problems: No - MUSCULOSKELETAL/RHEUMATOLOGICAL Hx Musculoskeletal Disorders: Yes - GASTROINTESTINAL Hx Gastrointestinal Disorders: Yes Hx Gastroesophageal Reflux: Yes Hx Vomiting: No - GENITOURINARY/GYNECOLOGICAL Hx Genitourinary Disorders: Yes Hx Bladder Cancer: Yes Hx Bladder Stone: Yes Hx Ovarian Cancer: Yes Other/Comment: + R side urostomy - PSYCHIATRIC Hx Emotional Abuse: No Hx Physical Abuse: No Hx Substance Use: No - SURGICAL HISTORY Other/Comment: Gtube reversal. R side urostomy. L side pacemaker/ defibrillator. Partial hysterectomy. Bladder cancer resection - ANESTHESIA Hx Anesthesia Reactions: No Hx Malignant Hyperthermia: No Meds Allergies/Adverse Reactions: Allergies Allergy/AdvReac Type Severity Reaction Status Date / Time No Known Allergies Allergy Verified 08/06/17 14:23 - Medications Medications: Current Medications Acetaminophen (Tylenol 325mg Tab) 650 mg PO Q4 PRN PRN Reason: Fever >100.4 F Last Admin: 08/12/17 06:04 Dose: 650 mg Aspirin (Ecotrin) 81 mg PO DAILY [facility] Last Admin: 08/16/17 09:35 Dose: 81 mg Atenolol (Tenormin) 25 mg PO DAILY [facility] Last Admin: 08/16/17 09:27 Dose: 25 mg Benzonatate (Tessalon Perles) 100 mg PO TID [facility] Last Admin: 08/16/17 09:28 Dose: 100 mg Fluticasone Propionate (Flonase) 1 actuation NS DAILY [facility] Last Admin: 08/16/17 09:36 Dose: 1 spr Furosemide (Lasix) 40 mg IVP DAILY [facility] Last Admin: 08/16/17 09:31 Dose: 40 mg Vancomycin HCl (Vancomycin 1gm) 1 gm in 250 mls @ 167 mls/hr IVPB Q12H [facility] PRN Reason: Protocol Stop: 08/26/17 10:16 Last Admin: 08/16/17 09:28 Dose: 167 mls/hr Meropenem/Sodium Chloride (Meropenem 1g/Ns 100ml Ivpb) 1 gm in 100 mls @ 100 mls/hr IVPB Q8 [facility] PRN Reason: Protocol Stop: 08/21/17 14:01 Last Admin: 08/16/17 06:01 Dose: 100 mls/hr Isosorbide Mononitrate (Imdur) 60 mg PO DAILY [facility] Last Admin: 08/16/17 09:43 Dose: 60 mg Levalbuterol HCl (Xopenex) 0.63 mg IH TIDRESP [facility] Last Admin: 08/16/17 08:17 Dose: Not Given Lidocaine/Prilocaine (Emla) 0 gm TOP TID PRN PRN Reason: Pain, Mild (1-3) Last Admin: 08/14/17 09:35 Dose: 1 applic Magnesium Oxide (Mag-Ox) 400 mg PO BID [facility] Last Admin: 08/16/17 09:30 Dose: 400 mg Methylprednisolone (Solu-Medrol) 20 mg IV Q12 [facility] Last Admin: 08/16/17 09:25 Dose: 20 mg Metoprolol Tartrate (Lopressor) 25 mg PO BID [facility] Last Admin: 08/16/17 09:31 Dose: 25 mg Morphine Sulfate (Morphine) 4 mg IV Q4H PRN PRN Reason: Pain, moderate (4-7) Last Admin: 08/16/17 03:32 Dose: 4 mg Mupirocin (Bactroban Ointment) 1 gm TOP BID [facility] Last Admin: 08/16/17 09:25 Dose: 1 applic Glatiramer Acetate [ (Copaxone] 40 Mg) 40 mg SQ MWF [facility] Last Admin: 08/14/17 14:30 Dose: Not Given Tapentadol Hcl [ (Nucynta] 100 Mg) 100 mg PO TID [facility] Last Admin: 08/16/17 09:27 Dose: Not Given Tapentadol Hcl [ (Nucynta Er] 150 Mg) 150 mg PO Q12H [facility] Last Admin: 08/16/17 06:02 Dose: Not Given Nystatin (Nystatin Oral Susp) 5 ml PO 5XD [facility] Last Admin: 08/16/17 09:25 Dose: 5 ml Ondansetron HCl (Zofran Inj) 4 mg IVP Q6H PRN PRN Reason: Nausea/Vomiting Last Admin: 08/09/17 21:52 Dose: 4 mg Pantoprazole Sodium (Protonix Inj) 40 mg IVP DAILY [facility] Polyethylene Glycol (Miralax) 17 gm PO BID [facility] Sucralfate (Carafate Oral Susp) 1 gm PO TID [facility] Last Admin: 08/16/17 09:36 Dose: 1 gm Physical Exam - Constitutional Appears: No Acute Distress - Head Exam Head Exam: NORMOCEPHALIC - Eye Exam Eye Exam: Normal appearance. absent: Scleral icterus - ENT Exam ENT Exam: Mucous Membranes Moist - Neck Exam Neck exam: Positive for: Normal Inspection - Respiratory Exam Respiratory Exam: NORMAL BREATHING PATTERN. absent: Respiratory Distress - Cardiovascular Exam Cardiovascular Exam: +S1, +S2 - GI/Abdominal Exam GI & Abdominal Exam: Normal Bowel Sounds, Soft, Tenderness (epigastric). absent : Guarding, Rebound Additional comments: positive ileal conduit with clear yellow urine and bag - Extremities Exam Extremities exam: Positive for: pedal pulses present. Negative for: calf tenderness, pedal edema - Neurological Exam Neurological exam: Alert, Oriented x3 - Skin Skin Exam: Dry, Warm Results - Vital Signs Recent Vital Signs: Last Vital Signs Temp 97.7 F 08/16/17 08:08 Pulse 82 08/16/17 09:31 Resp 20 08/16/17 08:08 BP 128/93 H 08/16/17 09:31 Pulse Ox 100 08/16/17 08:08 - Labs Result Diagrams: 08/16/17 06:15 08/16/17 06:15 Labs: Laboratory Results - last 24 hr 08/15/17 08/15/17 08/16/17 12:10 19:05 06:00 WBC RBC Hgb Hct MCV MCH MCHC RDW Plt Count MPV Lymph % (Auto) [place] % (Auto) Eos % (Auto) Lymph # (Auto) [place] # (Auto) Eos # (Auto) Sodium Potassium Chloride Carbon Dioxide Anion Gap BUN Creatinine Est GFR ( Amer) Est GFR (Non-Af Amer) Random Glucose Calcium Total Bilirubin 0.2 Direct Bilirubin 0.2 AST 98 H D ALT 239 H Alkaline Phosphatase 136 H D Troponin I 0.04 0.04 Total Protein 6.4 Albumin 3.4 Globulin 2.9 Albumin/Globulin Ratio 1.2 08/16/17 08/16/17 06:15 06:15 WBC 26.7 H* D RBC 3.57 Hgb 10.4 L Hct 33.7 L MCV 94.4 MCH 29.1 MCHC 30.9 L RDW 16.6 H Plt Count 166 MPV 10.7 Lymph % (Auto) 7.3 L [place] % (Auto) 7.4 H Eos % (Auto) 0.0 L Lymph # (Auto) 2.0 [place] # (Auto) 2.0 H Eos # (Auto) 0.0 Sodium 143 Potassium 4.5 Chloride 100 Carbon Dioxide 36 H Anion Gap 13 BUN 34 H Creatinine 0.8 Est GFR ( Amer) > 60 Est GFR (Non-Af Amer) > 60 Random Glucose 93 Calcium 9.4 Total Bilirubin Direct Bilirubin AST ALT Alkaline Phosphatase Troponin I Total Protein Albumin Globulin Albumin/Globulin Ratio Assessment & Plan - Assessment and Plan (Free Text) Assessment: Assessment: Fever, improving leukocytosis Metastatic ovarian cancer status post chemotherapy about 2 weeks ago History of bladder cancer status post ileal conduit Elevated LFTs, differentials to consider his hepatic congestion, patient with history of elevated BNP, 17,000, medication-induced, on IV antibiotics and status post chemotherapy, patient with cholelithiasis, CBD 5 mm no dilatation., Hepatitis panel negative Epigastric pain, borderline troponin, status post endoscopy 06/2017 peptic ulcer disease found, just slow gastric motility History of multiple sclerosis Constipation status post Relistor Plan: Trend LFTs Avoid hepatotoxic medications On IV antibiotics:meropenem and vancomycin Increase MiraLAX to twice a day, hold for stools greater than 2 a day Continue GI prophylaxis Diet as tolerated On prednisone On Carafate On nystatin Thank you for this consult and for allowing us to participate in your patient's care, further recommendations based upon clinical course. Seen and discussed with Dr. Russ. <Demarco Russ V - Last Filed: 08/17/17 00:06> Meds - Medications Medications: Current Medications Acetaminophen (Tylenol 325mg Tab) 650 mg PO Q4 PRN PRN Reason: Fever >100.4 F Last Admin: 08/12/17 06:04 Dose: 650 mg Aspirin (Ecotrin) 81 mg PO DAILY [facility] Last Admin: 08/16/17 09:35 Dose: 81 mg Atenolol (Tenormin) 25 mg PO DAILY [facility] Last Admin: 08/16/17 09:27 Dose: 25 mg Benzonatate (Tessalon Perles) 100 mg PO TID [facility] Last Admin: 08/16/17 17:05 Dose: 100 mg Fluticasone Propionate (Flonase) 1 actuation NS DAILY [facility] Last Admin: 08/16/17 09:36 Dose: 1 spr Furosemide (Lasix) 40 mg IVP DAILY [facility] Last Admin: 08/16/17 09:31 Dose: 40 mg Vancomycin HCl (Vancomycin 1gm) 1 gm in 250 mls @ 167 mls/hr IVPB Q12H [facility] PRN Reason: Protocol Stop: 08/26/17 10:16 Last Admin: 08/16/17 22:40 Dose: 167 mls/hr Meropenem/Sodium Chloride (Meropenem 1g/Ns 100ml Ivpb) 1 gm in 100 mls @ 100 mls/hr IVPB Q8 [facility] PRN Reason: Protocol Stop: 08/21/17 14:01 Last Admin: 08/16/17 21:25 Dose: 100 mls/hr Isosorbide Mononitrate (Imdur) 60 mg PO DAILY [facility] Last Admin: 08/16/17 09:43 Dose: 60 mg Levalbuterol HCl (Xopenex) 0.63 mg IH TIDRESP [facility] Last Admin: 08/16/17 19:52 Dose: 0.63 mg Lidocaine/Prilocaine (Emla) 0 gm TOP TID PRN PRN Reason: Pain, Mild (1-3) Last Admin: 08/14/17 09:35 Dose: 1 applic Magnesium Oxide (Mag-Ox) 400 mg PO BID [facility] Last Admin: 08/16/17 17:04 Dose: 400 mg Metoprolol Tartrate (Lopressor) 25 mg PO BID [facility] Last Admin: 08/16/17 17:02 Dose: 25 mg Morphine Sulfate (Morphine) 4 mg IVP Q4H PRN PRN Reason: Pain, severe (8-10) Last Admin: 08/16/17 21:24 Dose: 4 mg Mupirocin (Bactroban Ointment) 1 gm TOP BID [facility] Last Admin: 08/16/17 17:01 Dose: 1 applic Glatiramer Acetate [ (Copaxone] 40 Mg) 40 mg SQ MWF [facility] Last Admin: 08/16/17 17:02 Dose: Not Given Tapentadol Hcl [ (Nucynta] 100 Mg) 100 mg PO TID [facility] Last Admin: 08/16/17 17:05 Dose: Not Given Tapentadol Hcl [ (Nucynta Er] 150 Mg) 150 mg PO Q12H [facility] Last Admin: 08/16/17 17:05 Dose: Not Given Nystatin (Nystatin Oral Susp) 5 ml PO 5XD [facility] Last Admin: 08/16/17 17:05 Dose: 5 ml Ondansetron HCl (Zofran Inj) 4 mg IVP Q6H PRN PRN Reason: Nausea/Vomiting Last Admin: 08/09/17 21:52 Dose: 4 mg Pantoprazole Sodium (Protonix Inj) 40 mg IVP DAILY [facility] Polyethylene Glycol (Miralax) 17 gm PO BID [facility] Last Admin: 08/16/17 17:05 Dose: 17 gm Prednisone (Prednisone Tab) 10 mg PO DAILY [facility] Sucralfate (Carafate Oral Susp) 1 gm PO TID [facility] Last Admin: 08/16/17 17:01 Dose: 1 gm Results - Vital Signs Recent Vital Signs: Last Vital Signs Temp 97.7 F 08/16/17 23:32 Pulse 84 08/16/17 23:32 Resp 18 08/16/17 23:32 BP 127/78 08/16/17 23:32 Pulse Ox 98 08/16/17 23:32 - Labs Result Diagrams: 08/16/17 06:15 08/16/17 06:15 Labs: Laboratory Results - last 24 hr 08/16/17 08/16/17 08/16/17 06:00 06:15 06:15 WBC 26.7 H* D RBC 3.57 Hgb 10.4 L Hct 33.7 L MCV 94.4 MCH 29.1 MCHC 30.9 L RDW 16.6 H Plt Count 166 MPV 10.7 Lymph % (Auto) 7.3 L [place] % (Auto) 7.4 H Eos % (Auto) 0.0 L Lymph # (Auto) 2.0 [place] # (Auto) 2.0 H Eos # (Auto) 0.0 Sodium 143 Potassium 4.5 Chloride 100 Carbon Dioxide 36 H Anion Gap 13 BUN 34 H Creatinine 0.8 Est GFR ( Amer) > 60 Est GFR (Non-Af Amer) > 60 Random Glucose 93 Calcium 9.4 Total Bilirubin 0.2 Direct Bilirubin 0.2 AST 98 H D ALT 239 H Alkaline Phosphatase 136 H D Total Protein 6.4 Albumin 3.4 Globulin 2.9 Albumin/Globulin Ratio 1.2 Attending/Attestation - Attestation I have personally seen and examined this patient.: Yes I have fully participated in the care of the patient.: Yes I have reviewed all pertinent clinical information: Yes Notes (Text): This is an addendum to GI consult report dictated by Annie Layton APN.The patient was seen and examined earlier. Medical records, lab studies, imagings were reviewed. Last 24 hours events reviewed. Agreed with the above treatment plan as outlined in Annie Layton APN's notes the with the addition of the following small amount of bowel movement yesterday. Still complains of abdominal pain. on examination abdomen soft and mild tenderness present in deep palpation no rebound or guarding Patient did receive relistor 2 days ago will consider repeating another dose and also continue MiraLAX 08/17/17 00:04
--- NOTE | 2017-08-16 15:47 | PN ---
DATE: SUBJECTIVE: The patient is 62 years old, seen and examined, still gets chest pain, was seen by Dr. Granado who increased the dose of Imdur and it was decided to watch her for next 24 hours. If did not improve, he is going to take her to label remover. She denies shortness of breath. Has epigastric and mediastinal discomfort. Appetite is fair. PHYSICAL EXAMINATION: VITAL SIGNS: She is afebrile. Pulse 82, respirations 20, blood pressure 128/93. LUNGS: Bilateral fair airflow. No rhonchi or crackle. HEART: S1 and S2 audible. ABDOMEN: Soft. Slight epigastric discomfort. NEUROLOGIC: She is awake and alert, able to communicate. EXTREMITIES: Bilateral legs, she has ulcers, left more than the right and under the care of Dr. Rosales. LABORATORY EXAM: WBC 26.7, hemoglobin 10.4, hematocrit 33.7, and platelets 166. Chemistry: Sodium 143, potassium 4.5, chloride 100, CO2 of 35. BUN 34, creatinine 0.8. Blood sugar of 93. AST 98, ALT 239, and alk phos is 136. Sputum and blood cultures are negative. ASSESSMENT: 1. Chest pain probably cardiac, responded somewhat to Imdur. 2. Metastatic ovarian cancer. 3. History of bladder carcinoma, status post ileal conduit formation. 4. Leukocytosis, multifactorial. The patient did have couple of doses of Neupogen. 5. Cardiomyopathy status post pacemaker defibrillator placement. 6. Deconditioning and difficulty walking. PLAN: We will request for TCU evaluation. The patient is on isosorbide. She is on meropenem. She is on Protonix. We will cut down her steroids and change it p.o. prednisone. If there is a plan for cardiac cath, the patient will be transferred to TCU after that, otherwise she can be transferred to TCU today. Kimberley Hernadez MD
--- NOTE | 2017-08-16 17:23 | CP.PCM.PN ---
Subjective - Date & Time of Evaluation Date of Evaluation: 08/16/17 Time of Evaluation: 10:10 - Subjective Subjective: Comfortable, no fever, no diarrhea. Objective - Vital Signs/Intake and Output Vital Signs (last 24 hours): Temp Pulse Resp BP Pulse Ox 97.7 F 82 20 128/93 H 100 08/16/17 08:08 08/16/17 08:08 08/16/17 08:08 08/16/17 08:08 08/16/17 08:08 Intake and Output: 08/16/17 08/16/17 06:59 18:59 Intake Total 480 Output Total 400 Balance 80 - Medications Medications: Current Medications Acetaminophen (Tylenol 325mg Tab) 650 mg PO Q4 PRN PRN Reason: Fever >100.4 F Last Admin: 08/12/17 06:04 Dose: 650 mg Aspirin (Ecotrin) 81 mg PO DAILY [facility] Atenolol (Tenormin) 25 mg PO DAILY [facility] Last Admin: 08/15/17 09:46 Dose: 25 mg Benzonatate (Tessalon Perles) 100 mg PO TID [facility] Last Admin: 08/15/17 17:28 Dose: 100 mg Enoxaparin Sodium (Lovenox) 70 mg SC BID [facility] PRN Reason: Protocol Last Admin: 08/15/17 17:31 Dose: 70 mg Fluticasone Propionate (Flonase) 1 actuation NS DAILY [facility] Last Admin: 08/15/17 09:50 Dose: 1 spr Furosemide (Lasix) 40 mg IVP DAILY [facility] Last Admin: 08/15/17 09:47 Dose: 40 mg Vancomycin HCl (Vancomycin 1gm) 1 gm in 250 mls @ 167 mls/hr IVPB Q12H [facility] PRN Reason: Protocol Stop: 08/26/17 10:16 Last Admin: 08/15/17 22:19 Dose: 167 mls/hr Meropenem/Sodium Chloride (Meropenem 1g/Ns 100ml Ivpb) 1 gm in 100 mls @ 100 mls/hr IVPB Q8 [facility] PRN Reason: Protocol Stop: 08/21/17 14:01 Last Admin: 08/16/17 06:01 Dose: 100 mls/hr Isosorbide Mononitrate (Imdur) 60 mg PO DAILY [facility] Levalbuterol HCl (Xopenex) 0.63 mg IH TIDRESP [facility] Last Admin: 08/16/17 08:17 Dose: Not Given Lidocaine/Prilocaine (Emla) 0 gm TOP TID PRN PRN Reason: Pain, Mild (1-3) Last Admin: 08/14/17 09:35 Dose: 1 applic Magnesium Oxide (Mag-Ox) 400 mg PO BID [facility] Last Admin: 08/15/17 17:28 Dose: 400 mg Methylprednisolone (Solu-Medrol) 20 mg IV Q12 [facility] Last Admin: 08/15/17 21:06 Dose: 20 mg Metoprolol Tartrate (Lopressor) 25 mg PO BID [facility] Last Admin: 08/15/17 17:29 Dose: 25 mg Morphine Sulfate (Morphine) 4 mg IV Q4H PRN PRN Reason: Pain, moderate (4-7) Last Admin: 08/16/17 03:32 Dose: 4 mg Mupirocin (Bactroban Ointment) 1 gm TOP BID [facility] Last Admin: 08/15/17 09:49 Dose: 1 applic Glatiramer Acetate [ (Copaxone] 40 Mg) 40 mg SQ MWF [facility] Last Admin: 08/14/17 14:30 Dose: Not Given Tapentadol Hcl [ (Nucynta] 100 Mg) 100 mg PO TID [facility] Last Admin: 08/15/17 09:50 Dose: Not Given Tapentadol Hcl [ (Nucynta Er] 150 Mg) 150 mg PO Q12H [facility] Last Admin: 08/16/17 06:02 Dose: Not Given Nystatin (Nystatin Oral Susp) 5 ml PO 5XD [facility] Last Admin: 08/16/17 06:01 Dose: 5 ml Ondansetron HCl (Zofran Inj) 4 mg IVP Q6H PRN PRN Reason: Nausea/Vomiting Last Admin: 08/09/17 21:52 Dose: 4 mg Polyethylene Glycol (Miralax) 17 gm PO DAILY [facility] Last Admin: 08/15/17 13:13 Dose: 17 gm Sucralfate (Carafate Oral Susp) 1 gm PO TID [facility] Last Admin: 08/15/17 17:28 Dose: 1 gm - Labs Labs: 08/16/17 06:15 08/16/17 06:15 PT 13.4 SECONDS (9.4-12.5) H 08/06/17 15:30 INR 1.17 (0.93-1.08) H 08/06/17 15:30 APTT 46.9 Seconds (25.1-36.5) H 08/06/17 15:30 - Constitutional Appears: Chronically Ill - Head Exam Head Exam: NORMAL INSPECTION - ENT Exam ENT Exam: Mucous Membranes Moist - Neck Exam Neck Exam: absent: Meningismus - Respiratory Exam Respiratory Exam: Decreased Breath Sounds - Cardiovascular Exam Cardiovascular Exam: +S1, +S2 - GI/Abdominal Exam GI & Abdominal Exam: Soft. absent: Tenderness Assessment and Plan - Assessment and Plan (Free Text) Plan: Assessment E. coli bacteremia S/P Febrile neutropenia right leg infection with MSSA history of bilateral inguinal area skin and skin structure infection associated with ovarian cancer metastasis S/P I and D history of chronic left leg ulcers, infected with Pseudomonas and Proteus mirabilis urinary bladder / urethral cancer ovarian cancer multiple sclerosis S/P pacemaker placement S/P right sided port-a-cath placement Plan continue Vancomycin and Merrem (day 11) - complete 10-14 days of antibiotics overall prognosis is poor
--- NOTE | 2017-08-16 20:37 | CP.PCM.PN ---
Subjective - Date & Time of Evaluation Date of Evaluation: 08/16/17 Time of Evaluation: 13:00 - Subjective Subjective: She is comfortable. Has epigastric pain that is persistent. had an episode of chest pain yesterday. She was started on second line chemotherapy , first cycle given. her first line chemotherapy was 2 years ago. Pancytopenia recovered. Palliative services note reviewed. Patient communicated to me that she does not want hospice and does not want hospice either. She also stated that she wants to go home tomorrow after cardiac cath as she has home PT already set up. Objective - Vital Signs/Intake and Output Vital Signs (last 24 hours): Temp Pulse Resp BP Pulse Ox 98.6 F 82 20 130/89 98 08/16/17 16:00 08/16/17 17:02 08/16/17 16:00 08/16/17 17:02 08/16/17 16:00 Intake and Output: 08/16/17 08/17/17 18:59 06:59 Intake Total 600 Output Total 1000 Balance -400 - Medications Medications: Current Medications Acetaminophen (Tylenol 325mg Tab) 650 mg PO Q4 PRN PRN Reason: Fever >100.4 F Last Admin: 08/12/17 06:04 Dose: 650 mg Aspirin (Ecotrin) 81 mg PO DAILY [facility] Last Admin: 08/16/17 09:35 Dose: 81 mg Atenolol (Tenormin) 25 mg PO DAILY [facility] Last Admin: 08/16/17 09:27 Dose: 25 mg Benzonatate (Tessalon Perles) 100 mg PO TID [facility] Last Admin: 08/16/17 17:05 Dose: 100 mg Fluticasone Propionate (Flonase) 1 actuation NS DAILY [facility] Last Admin: 08/16/17 09:36 Dose: 1 spr Furosemide (Lasix) 40 mg IVP DAILY [facility] Last Admin: 08/16/17 09:31 Dose: 40 mg Vancomycin HCl (Vancomycin 1gm) 1 gm in 250 mls @ 167 mls/hr IVPB Q12H [facility] PRN Reason: Protocol Stop: 08/26/17 10:16 Last Admin: 08/16/17 09:28 Dose: 167 mls/hr Meropenem/Sodium Chloride (Meropenem 1g/Ns 100ml Ivpb) 1 gm in 100 mls @ 100 mls/hr IVPB Q8 [facility] PRN Reason: Protocol Stop: 08/21/17 14:01 Last Admin: 08/16/17 13:42 Dose: 100 mls/hr Isosorbide Mononitrate (Imdur) 60 mg PO DAILY [facility] Last Admin: 08/16/17 09:43 Dose: 60 mg Levalbuterol HCl (Xopenex) 0.63 mg IH TIDRESP [facility] Last Admin: 08/16/17 19:52 Dose: 0.63 mg Lidocaine/Prilocaine (Emla) 0 gm TOP TID PRN PRN Reason: Pain, Mild (1-3) Last Admin: 08/14/17 09:35 Dose: 1 applic Magnesium Oxide (Mag-Ox) 400 mg PO BID [facility] Last Admin: 08/16/17 17:04 Dose: 400 mg Metoprolol Tartrate (Lopressor) 25 mg PO BID [facility] Last Admin: 08/16/17 17:02 Dose: 25 mg Mupirocin (Bactroban Ointment) 1 gm TOP BID [facility] Last Admin: 08/16/17 17:01 Dose: 1 applic Glatiramer Acetate [ (Copaxone] 40 Mg) 40 mg SQ MWF [facility] Last Admin: 08/16/17 17:02 Dose: Not Given Tapentadol Hcl [ (Nucynta] 100 Mg) 100 mg PO TID [facility] Last Admin: 08/16/17 17:05 Dose: Not Given Tapentadol Hcl [ (Nucynta Er] 150 Mg) 150 mg PO Q12H [facility] Last Admin: 08/16/17 17:05 Dose: Not Given Nystatin (Nystatin Oral Susp) 5 ml PO 5XD [facility] Last Admin: 08/16/17 17:05 Dose: 5 ml Ondansetron HCl (Zofran Inj) 4 mg IVP Q6H PRN PRN Reason: Nausea/Vomiting Last Admin: 08/09/17 21:52 Dose: 4 mg Pantoprazole Sodium (Protonix Inj) 40 mg IVP DAILY [facility] Polyethylene Glycol (Miralax) 17 gm PO BID [facility] Last Admin: 08/16/17 17:05 Dose: 17 gm Prednisone (Prednisone Tab) 10 mg PO DAILY [facility] Sucralfate (Carafate Oral Susp) 1 gm PO TID [facility] Last Admin: 08/16/17 17:01 Dose: 1 gm - Labs Labs: 08/16/17 06:15 08/16/17 06:15 PT 13.4 SECONDS (9.4-12.5) H 08/06/17 15:30 INR 1.17 (0.93-1.08) H 08/06/17 15:30 APTT 46.9 Seconds (25.1-36.5) H 08/06/17 15:30 - Constitutional Appears: Non-toxic, Chronically Ill - Head Exam Head Exam: ATRAUMATIC, NORMAL INSPECTION, NORMOCEPHALIC - Eye Exam Eye Exam: Normal appearance - ENT Exam ENT Exam: Mucous Membranes Moist - Neck Exam Neck Exam: Normal Inspection - Respiratory Exam Respiratory Exam: Clear to Ausculation Bilateral, NORMAL BREATHING PATTERN - Cardiovascular Exam Cardiovascular Exam: REGULAR RHYTHM, +S1, +S2 - GI/Abdominal Exam GI & Abdominal Exam: Soft, Normal Bowel Sounds - Extremities Exam Extremities Exam: Normal Capillary Refill, Normal Inspection - Back Exam Back Exam: NORMAL INSPECTION - Neurological Exam Neurological Exam: Alert, Awake, CN II-XII Intact, Oriented x3 - Skin Skin Exam: Normal Color, Warm Assessment and Plan - Assessment and Plan (Free Text) Assessment: 1. stage IV ovarian cancer : s/p first cycle of chemo, second line . 2. Pancytopenia : resolved. 3. urosepsis : on IV antibiotics. 4. Continue eliquis 5 mg BID. 5. patient declined hospice to me . will continue chemo as out patient. second line chemo improves quality of life and prolongs survival. Discussed with Dr. Hernadez.
[2017-08-16] MEDS: Morphine 4 mg/ml ISec IVP PRN (21:24)
[2017-08-17] MEDS: Morphine 4 mg/ml ISec IVP PRN ×5 (01:15→22:00)
--- NOTE | 2017-08-17 05:44 | PCM.RRT ---
<AimemartyLisa - Last Filed: 08/17/17 06:14> PLAN MANAGER Nurse Assessment - Situation Date: 08/17/17 Time PLAN MANAGER was called: 05:22 PLAN MANAGER Responder Arrival Time: 05:23 PLAN MANAGER Location:: [address] [place] [address] Room Number: [id number] PLAN MANAGER Reason for Call: Respiratory Distress (Patient complained of being short of breath.), Possible Stroke, Looks Sicker PLAN MANAGER Called By: RN - IV IV Inserted during PLAN MANAGER?: No - Respiratory Oxygen Delivery Method: Nasal Cannula @L/min Received Nebulizer Treatments:: No Was the Patient Ventilated with Bag/Mask 100% O2?: No Secretions Suctioned?: No Was the Patient Intubated?: No Was the Patient Placed on a Ventilator?: No - Medication Medications Administered During PLAN MANAGER: ASA 325 - Diagnostic Test Ordered EKG: No Chest X-Ray: No CT Scan: Yes (Head CT) Other Diagnostic Test Ordered: FingerStick Glucose CPR started during PLAN MANAGER?: No - Finger Stick Blood Glucose Finger Stick Blood Glucose: 91 - [place] Coma Scale Coma Scale Eye Opening: Spontaneous Coma Scale Motor: Obeys Commands Movement Coma Scale Verbal: Oriented - Time PLAN MANAGER Ended Time PLAN MANAGER Ended: 05:45 - Recommendations 5) PLAN MANAGER Level of Care Recommendations: Remain in current setting Notifications: Attending Physician (Dr. Hernadez ) I.Reason for PLAN MANAGER - A) Acute Change in Patient: (Select all that apply): absent: Acute change in mental status, Acute change in heart rate less than 50 or greater than 120, Acute change in SBP below, Acute change in respiratory rate less than 8 or greater than 28, Acute change in SpO2 less Subjective: Rapid Response called due to patient complaining of SOB. At arrival patient's 02 Sat was 100% on 2L NC and was hemodynamically stable. Per nurse, patient had slurred speech which resolved by arrival. Neuro exam revealed left lower extremity weakness. Attending (Dr. Hernadez) was called by night Attending (Dr. Mendoza). Night team was asked to get Head CT and order ASA 325. - Neurological Status (Select all that apply): Alert, Responsive, Oriented, Verbal, Follows Commands - Respiratory Oxygen Delivery Method: Nasal Cannula @L/min - Constitutional Appears: Non-toxic, No Acute Distress - Head Head Exam: ATRAUMATIC, NORMAL INSPECTION, NORMOCEPHALIC - Eyes Eye Exam: EOMI, PERRL. absent: Scleral icterus - Respiratory Exam Respiratory Exam: NORMAL BREATHING PATTERN. absent: Accessory Muscle Use, Respiratory Distress - Cardiovascular Exam Cardiovascular Exam: +S1, +S2 - Neurological Exam Neurological Exam: Alert, Awake, CN II-XII Intact, Oriented x3 Additional exam: 5/5 Upper Extremity Test B/L 5/5 Right Lower Extremity 3/5 Left Lower Ext. Plan - Assessment of Findings&Treatment Plan 62 year old female with Hx of Ovarian CA and MS Stat CT Head: Will base management off CT findings. ASA 325 STAT ordered Patient unable to swallow ASA <Haydee Mendoza - Last Filed: 08/19/17 06:53> PLAN MANAGER Nurse Assessment - Vital Signs Vital Sign: Rapid Response Vital Sign Blood Pressure 127/90 Pulse Rate 104 Oxygen Saturation 100 - Vital Signs at end of PLAN MANAGER Vital Signs at end of PLAN MANAGER: Rapid Response End Vital Sign Blood Pressure 121/86 Pulse Rate 94 Respiratory Rate 18 Temperature 98.3 F O2 Sat by Pulse Oximetry 94 Attending/Attestation - Attestation I have personally seen and examined this patient.: Yes I have fully participated in the care of the patient.: Yes I have reviewed all pertinent clinical information, including history, physical exam and plan: Yes Notes (Text): 08/19/17 06:52 CRITICAL CARE TIME SPENT 30 minutes. Agree with note by Dr. Meek.
--- NOTE | 2017-08-17 06:01 | CP.PCM.PN ---
Subjective - Date & Time of Evaluation Date of Evaluation: 08/17/17 Time of Evaluation: 05:56 - Subjective Subjective: See rapid response note by . It was announced because of slurred speech . When I evaluated her, patient had clear speech. There was some weakness in left lower extremity. FSBS was 91 mg %. Discussed with . Objective - Vital Signs/Intake and Output Vital Signs (last 24 hours): Temp Pulse Resp BP Pulse Ox 97.7 F 104 H 18 127/90 100 08/16/17 23:32 08/17/17 05:34 08/16/17 23:32 08/17/17 05:34 08/17/17 05:34 Intake and Output: 08/16/17 08/17/17 18:59 06:59 Intake Total 600 300 Output Total 1000 400 Balance -400 -100 - Medications Medications: Current Medications Acetaminophen (Tylenol 325mg Tab) 650 mg PO Q4 PRN PRN Reason: Fever >100.4 F Last Admin: 08/12/17 06:04 Dose: 650 mg Aspirin (Ecotrin) 81 mg PO DAILY [facility] Last Admin: 08/16/17 09:35 Dose: 81 mg Aspirin (Aspirin Chewable) 81 mg PO DAILY [facility] Atenolol (Tenormin) 25 mg PO DAILY [facility] Last Admin: 08/16/17 09:27 Dose: 25 mg Benzonatate (Tessalon Perles) 100 mg PO TID [facility] Last Admin: 08/16/17 17:05 Dose: 100 mg Fluticasone Propionate (Flonase) 1 actuation NS DAILY [facility] Last Admin: 08/16/17 09:36 Dose: 1 spr Furosemide (Lasix) 40 mg IVP DAILY [facility] Last Admin: 08/16/17 09:31 Dose: 40 mg Vancomycin HCl (Vancomycin 1gm) 1 gm in 250 mls @ 167 mls/hr IVPB Q12H [facility] PRN Reason: Protocol Stop: 08/26/17 10:16 Last Admin: 08/16/17 22:40 Dose: 167 mls/hr Meropenem/Sodium Chloride (Meropenem 1g/Ns 100ml Ivpb) 1 gm in 100 mls @ 100 mls/hr IVPB Q8 [facility] PRN Reason: Protocol Stop: 08/21/17 14:01 Last Admin: 08/16/17 21:25 Dose: 100 mls/hr Isosorbide Mononitrate (Imdur) 60 mg PO DAILY [facility] Last Admin: 08/16/17 09:43 Dose: 60 mg Levalbuterol HCl (Xopenex) 0.63 mg IH TIDRESP [facility] Last Admin: 08/16/17 19:52 Dose: 0.63 mg Lidocaine/Prilocaine (Emla) 0 gm TOP TID PRN PRN Reason: Pain, Mild (1-3) Last Admin: 08/14/17 09:35 Dose: 1 applic Magnesium Oxide (Mag-Ox) 400 mg PO BID [facility] Last Admin: 08/16/17 17:04 Dose: 400 mg Metoprolol Tartrate (Lopressor) 25 mg PO BID [facility] Last Admin: 08/16/17 17:02 Dose: 25 mg Morphine Sulfate (Morphine) 4 mg IVP Q4H PRN PRN Reason: Pain, severe (8-10) Last Admin: 08/17/17 01:15 Dose: 4 mg Mupirocin (Bactroban Ointment) 1 gm TOP BID [facility] Last Admin: 08/16/17 17:01 Dose: 1 applic Glatiramer Acetate [ (Copaxone] 40 Mg) 40 mg SQ MWF [facility] Last Admin: 08/16/17 17:02 Dose: Not Given Tapentadol Hcl [ (Nucynta] 100 Mg) 100 mg PO TID [facility] Last Admin: 08/16/17 17:05 Dose: Not Given Tapentadol Hcl [ (Nucynta Er] 150 Mg) 150 mg PO Q12H [facility] Last Admin: 08/16/17 17:05 Dose: Not Given Nystatin (Nystatin Oral Susp) 5 ml PO 5XD [facility] Last Admin: 08/16/17 17:05 Dose: 5 ml Ondansetron HCl (Zofran Inj) 4 mg IVP Q6H PRN PRN Reason: Nausea/Vomiting Last Admin: 08/09/17 21:52 Dose: 4 mg Pantoprazole Sodium (Protonix Inj) 40 mg IVP DAILY [facility] Polyethylene Glycol (Miralax) 17 gm PO BID [facility] Last Admin: 08/16/17 17:05 Dose: 17 gm Prednisone (Prednisone Tab) 10 mg PO DAILY [facility] Sucralfate (Carafate Oral Susp) 1 gm PO TID [facility] Last Admin: 08/16/17 17:01 Dose: 1 gm - Labs Labs: 08/16/17 06:15 08/16/17 06:15 PT 13.4 SECONDS (9.4-12.5) H 08/06/17 15:30 INR 1.17 (0.93-1.08) H 08/06/17 15:30 APTT 46.9 Seconds (25.1-36.5) H 08/06/17 15:30
[2017-08-17] MEDS: Meropenem 1g/NS 100mL IVPB 1 GM/100 ML PIGGYBACK IVPB SCH ×3 (06:24→21:02)
[2017-08-17] MEDS: Nystatin 100,000 Units/ml Oral Susp 5 ml UD PO SCH ×5 (06:25→21:02)
--- NOTE | 2017-08-17 06:32 | CT ---
EXAM: CT Head Without Intravenous Contrast CLINICAL HISTORY: 62 years old, female; Signs and symptoms; Weakness, facial; Additional info: Rapid response, weakness TECHNIQUE: Axial computed tomography images of the head/brain without intravenous contrast. All CT scans at this facility use one or more dose reduction techniques, viz.: automated exposure control; ma/kV adjustment per patient size (including targeted exams where dose is matched to indication; i.e. head); or iterative reconstruction technique. Coronal and sagittal reformatted images were created and reviewed. COMPARISON: No relevant prior studies available. FINDINGS: Brain: There is a small focus of hypodensity in the left deep frontal white matter axial image 20 likely representing chronic infarction. There is mild ill-defined patchy hypodensity within the bilateral cerebral periventricular white matter, consistent with chronic microvascular ischemic changes. There is mild diffuse cerebral atrophy present, consistent with this patient's age. The cortical edge / white matter interfaces are preserved throughout the brain. Examination of the posterior fossa demonstrates no significant abnormality. No hemorrhage. Ventricles: The ventricular system demonstrates mild diffuse compensatory enlargement. Bones/joints: Unremarkable. No acute fracture. Soft tissues: Unremarkable. Vasculature: There is no hyperdense MCA sign. Sinuses: Unremarkable as visualized. No acute sinusitis. Mastoid air cells: Unremarkable as visualized. No mastoid effusion. IMPRESSION: No acute infarction, masses or hemorrhage is seen. No acute intracranial abnormality is identified. Diffuse age-related cerebral atrophy and mild chronic microvascular white matter ischemic changes, without evidence of an acute intracranial abnormality. There is a small focus of hypodensity in the left deep frontal white matter axial image 20 likely representing chronic infarction. If there is a high clinical concern for acute stroke, MRI of the brain with diffusion imaging or short-term followup CT may be considered for further evaluation.
[2017-08-17] MEDS ORDERED: Dextrose 5%/0.45% NS 1,000 ML IV SCH (07:15)
[2017-08-17] MEDS: Levalbuterol 0.63 MG/3 ML Inhal Soln UD IH SCH ×3 (07:28→20:32)
[2017-08-17] MEDS ORDERED: Midazolam 2 MG/2 ML VIAL ONE (07:49)
[2017-08-17] MEDS ORDERED: Iodixanol 320 MG/ML 200 ML BOTTLE IV ONE (07:50)
[2017-08-17] MEDS ORDERED: Iohexol 350mgl/ml 50 ML ONE (07:50)
[2017-08-17] MEDS ORDERED: HEPARIN SODIUM/NS 0 ML IV ONE (07:51)
[2017-08-17] MEDS: Vancomycin 1gm in NS 250ml 1 GM/250 ML BAG IVPB SCH ×2 (09:23→22:28)
[2017-08-17] MEDS: Fluticasone Nasal 50 mcg/Spray NS SCH (09:24)
--- NOTE | 2017-08-17 11:21 | CP.PCM.PN ---
Subjective - Date & Time of Evaluation Date of Evaluation: 08/17/17 Time of Evaluation: 10:00 - Subjective Subjective: Alert, speech slurred. Denies headache. States her thinking process are "slow" Objective - Vital Signs/Intake and Output Vital Signs (last 24 hours): Temp Pulse Resp BP Pulse Ox 97.4 F L 87 20 127/90 100 08/17/17 08:04 08/17/17 08:04 08/17/17 08:04 08/17/17 09:25 08/17/17 08:04 Intake and Output: 08/17/17 08/17/17 06:59 18:59 Intake Total 300 120 Output Total 400 400 Balance -100 -280 - Medications Medications: Current Medications Acetaminophen (Tylenol 325mg Tab) 650 mg PO Q4 PRN PRN Reason: Fever >100.4 F Last Admin: 08/12/17 06:04 Dose: 650 mg Aspirin (Ecotrin) 81 mg PO DAILY [facility] Last Admin: 08/16/17 09:35 Dose: 81 mg Aspirin (Aspirin Chewable) 81 mg PO DAILY [facility] Atenolol (Tenormin) 25 mg PO DAILY [facility] Last Admin: 08/16/17 09:27 Dose: 25 mg Benzonatate (Tessalon Perles) 100 mg PO TID [facility] Last Admin: 08/16/17 17:05 Dose: 100 mg Fluticasone Propionate (Flonase) 1 actuation NS DAILY [facility] Last Admin: 08/17/17 09:24 Dose: 1 spr Furosemide (Lasix) 40 mg IVP DAILY [facility] Last Admin: 08/17/17 09:25 Dose: 40 mg Vancomycin HCl (Vancomycin 1gm) 1 gm in 250 mls @ 167 mls/hr IVPB Q12H [facility] PRN Reason: Protocol Stop: 08/26/17 10:16 Last Admin: 08/17/17 09:23 Dose: 167 mls/hr Meropenem/Sodium Chloride (Meropenem 1g/Ns 100ml Ivpb) 1 gm in 100 mls @ 100 mls/hr IVPB Q8 [facility] PRN Reason: Protocol Stop: 08/21/17 14:01 Last Admin: 08/17/17 06:24 Dose: 100 mls/hr Dextrose/Sodium Chloride (Dextrose 5%/0.45% Ns 1000 Ml) 1,000 mls @ 60 mls/hr IV .[id number] [facility] Last Admin: 08/17/17 09:17 Dose: 60 mls/hr Isosorbide Mononitrate (Imdur) 60 mg PO DAILY [facility] Last Admin: 08/16/17 09:43 Dose: 60 mg Levalbuterol HCl (Xopenex) 0.63 mg IH TIDRESP [facility] Last Admin: 08/17/17 07:28 Dose: 0.63 mg Lidocaine/Prilocaine (Emla) 0 gm TOP TID PRN PRN Reason: Pain, Mild (1-3) Last Admin: 08/14/17 09:35 Dose: 1 applic Magnesium Oxide (Mag-Ox) 400 mg PO BID [facility] Last Admin: 08/16/17 17:04 Dose: 400 mg Metoprolol Tartrate (Lopressor) 25 mg PO BID [facility] Last Admin: 08/16/17 17:02 Dose: 25 mg Morphine Sulfate (Morphine) 4 mg IVP Q4H PRN PRN Reason: Pain, severe (8-10) Last Admin: 08/17/17 06:23 Dose: 4 mg Mupirocin (Bactroban Ointment) 1 gm TOP BID [facility] Last Admin: 08/17/17 09:17 Dose: 1 applic Glatiramer Acetate [ (Copaxone] 40 Mg) 40 mg SQ MWF [facility] Last Admin: 08/16/17 17:02 Dose: Not Given Tapentadol Hcl [ (Nucynta] 100 Mg) 100 mg PO TID [facility] Last Admin: 08/16/17 17:05 Dose: Not Given Tapentadol Hcl [ (Nucynta Er] 150 Mg) 150 mg PO Q12H [facility] Last Admin: 08/16/17 17:05 Dose: Not Given Nystatin (Nystatin Oral Susp) 5 ml PO 5XD [facility] Last Admin: 08/17/17 06:25 Dose: Not Given Ondansetron HCl (Zofran Inj) 4 mg IVP Q6H PRN PRN Reason: Nausea/Vomiting Last Admin: 08/09/17 21:52 Dose: 4 mg Pantoprazole Sodium (Protonix Inj) 40 mg IVP DAILY [facility] Last Admin: 08/17/17 09:25 Dose: 40 mg Polyethylene Glycol (Miralax) 17 gm PO BID [facility] Last Admin: 08/16/17 17:05 Dose: 17 gm Prednisone (Prednisone Tab) 10 mg PO DAILY [facility] Sucralfate (Carafate Oral Susp) 1 gm PO TID [facility] Last Admin: 08/16/17 17:01 Dose: 1 gm - Labs Labs: 08/16/17 06:15 08/16/17 06:15 PT 13.4 SECONDS (9.4-12.5) H 08/06/17 15:30 INR 1.17 (0.93-1.08) H 08/06/17 15:30 APTT 46.9 Seconds (25.1-36.5) H 08/06/17 15:30 - Constitutional Appears: Chronically Ill - Head Exam Head Exam: NORMAL INSPECTION - Eye Exam Eye Exam: Normal appearance, PERRL - ENT Exam ENT Exam: Mucous Membranes Moist - Respiratory Exam Respiratory Exam: Clear to Ausculation Bilateral, NORMAL BREATHING PATTERN - Cardiovascular Exam Cardiovascular Exam: REGULAR RHYTHM, +S1, +S2 - GI/Abdominal Exam GI & Abdominal Exam: Soft, Normal Bowel Sounds - Back Exam Back Exam: NORMAL INSPECTION - Neurological Exam Neurological Exam: Alert Additional comments: slurred speech - Skin Skin Exam: Dry, Pallor Assessment and Plan - Assessment and Plan (Free Text) Assessment: 62 year old female with history of MS, metastatic ovarian cancer, past bladder cancer who was admitted with abdominal pain and febrile neutropenia. She now has leukocytosis This morning she developed slurred speech, weakness. CUSTOMER CARE CONSULTANT called. Failed swallow evaluation. CT of head showed no acute infarct or hemorrhage, mild chronic microvascular white matter changes, age related atrophy , small focus of hypodensity in left deep frontal white matter likely representing chronic infarction. The patient is alert, oriented. Realizes that her speech is slow and slurred. Also admits that her thinking process are slow. Denies pain. State she has not taken any of her MS meds since she was admitted. She asked her family to bring these medications to the hospital. She asked me to rescind her POLST DNR/DNI. States she wants everything g done. Reassured that her request will be honored. Psychosocial support provided. Time spent in goals of care discussion, 15 minutes Plan: POLST Rescinded< > Resuscitation status now Full code. Psychosocial support provided.
--- NOTE | 2017-08-17 11:36 | CP.PCM.PCO ---
Physician Communication Note - Physician Communication Note Physician Communication Note: Mucositis 2 ChemoRx/Trial Carafate Rx
[2017-08-17] MEDS: POLYETHYLENE GLYCOL 3350 17 GM/Dose PACKET PO SCH ×2 (12:07→17:10)
--- NOTE | 2017-08-17 12:16 | CP.PCM.PN ---
Subjective - Date & Time of Evaluation Date of Evaluation: 08/17/17 Time of Evaluation: 10:00 - Subjective Subjective: Noted patient to have developed some slurring of speech, some leg weakness, no fevers. Objective - Vital Signs/Intake and Output Vital Signs (last 24 hours): Temp Pulse Resp BP Pulse Ox 97.4 F L 87 20 127/90 100 08/17/17 08:04 08/17/17 08:04 08/17/17 08:04 08/17/17 08:04 08/17/17 08:04 Intake and Output: 08/17/17 08/17/17 06:59 18:59 Intake Total 300 120 Output Total 400 400 Balance -100 -280 - Medications Medications: Current Medications Acetaminophen (Tylenol 325mg Tab) 650 mg PO Q4 PRN PRN Reason: Fever >100.4 F Last Admin: 08/12/17 06:04 Dose: 650 mg Aspirin (Ecotrin) 81 mg PO DAILY [facility] Last Admin: 08/16/17 09:35 Dose: 81 mg Aspirin (Aspirin Chewable) 81 mg PO DAILY [facility] Atenolol (Tenormin) 25 mg PO DAILY [facility] Last Admin: 08/16/17 09:27 Dose: 25 mg Benzonatate (Tessalon Perles) 100 mg PO TID [facility] Last Admin: 08/16/17 17:05 Dose: 100 mg Fluticasone Propionate (Flonase) 1 actuation NS DAILY [facility] Last Admin: 08/16/17 09:36 Dose: 1 spr Furosemide (Lasix) 40 mg IVP DAILY [facility] Last Admin: 08/16/17 09:31 Dose: 40 mg Vancomycin HCl (Vancomycin 1gm) 1 gm in 250 mls @ 167 mls/hr IVPB Q12H [facility] PRN Reason: Protocol Stop: 08/26/17 10:16 Last Admin: 08/16/17 22:40 Dose: 167 mls/hr Meropenem/Sodium Chloride (Meropenem 1g/Ns 100ml Ivpb) 1 gm in 100 mls @ 100 mls/hr IVPB Q8 [facility] PRN Reason: Protocol Stop: 08/21/17 14:01 Last Admin: 08/17/17 06:24 Dose: 100 mls/hr Dextrose/Sodium Chloride (Dextrose 5%/0.45% Ns 1000 Ml) 1,000 mls @ 60 mls/hr IV .[id number] [facility] Isosorbide Mononitrate (Imdur) 60 mg PO DAILY [facility] Last Admin: 08/16/17 09:43 Dose: 60 mg Levalbuterol HCl (Xopenex) 0.63 mg IH TIDRESP [facility] Last Admin: 08/17/17 07:28 Dose: 0.63 mg Lidocaine/Prilocaine (Emla) 0 gm TOP TID PRN PRN Reason: Pain, Mild (1-3) Last Admin: 08/14/17 09:35 Dose: 1 applic Magnesium Oxide (Mag-Ox) 400 mg PO BID [facility] Last Admin: 08/16/17 17:04 Dose: 400 mg Metoprolol Tartrate (Lopressor) 25 mg PO BID [facility] Last Admin: 08/16/17 17:02 Dose: 25 mg Morphine Sulfate (Morphine) 4 mg IVP Q4H PRN PRN Reason: Pain, severe (8-10) Last Admin: 08/17/17 06:23 Dose: 4 mg Mupirocin (Bactroban Ointment) 1 gm TOP BID [facility] Last Admin: 08/16/17 17:01 Dose: 1 applic Glatiramer Acetate [ (Copaxone] 40 Mg) 40 mg SQ MWF [facility] Last Admin: 08/16/17 17:02 Dose: Not Given Tapentadol Hcl [ (Nucynta] 100 Mg) 100 mg PO TID [facility] Last Admin: 08/16/17 17:05 Dose: Not Given Tapentadol Hcl [ (Nucynta Er] 150 Mg) 150 mg PO Q12H [facility] Last Admin: 08/16/17 17:05 Dose: Not Given Nystatin (Nystatin Oral Susp) 5 ml PO 5XD [facility] Last Admin: 08/17/17 06:25 Dose: Not Given Ondansetron HCl (Zofran Inj) 4 mg IVP Q6H PRN PRN Reason: Nausea/Vomiting Last Admin: 08/09/17 21:52 Dose: 4 mg Pantoprazole Sodium (Protonix Inj) 40 mg IVP DAILY [facility] Polyethylene Glycol (Miralax) 17 gm PO BID [facility] Last Admin: 08/16/17 17:05 Dose: 17 gm Prednisone (Prednisone Tab) 10 mg PO DAILY [facility] Sucralfate (Carafate Oral Susp) 1 gm PO TID [facility] Last Admin: 08/16/17 17:01 Dose: 1 gm - Labs Labs: 08/16/17 06:15 08/16/17 06:15 PT 13.4 SECONDS (9.4-12.5) H 08/06/17 15:30 INR 1.17 (0.93-1.08) H 08/06/17 15:30 APTT 46.9 Seconds (25.1-36.5) H 08/06/17 15:30 - Constitutional Appears: Cachectic, Chronically Ill - Head Exam Head Exam: NORMAL INSPECTION - ENT Exam ENT Exam: Mucous Membranes Moist - Neck Exam Neck Exam: absent: Meningismus - Respiratory Exam Respiratory Exam: Decreased Breath Sounds - Cardiovascular Exam Cardiovascular Exam: +S1, +S2 - GI/Abdominal Exam GI & Abdominal Exam: Soft. absent: Tenderness - Extremities Exam Additional comments: left lower extremity with dressings in place Assessment and Plan - Assessment and Plan (Free Text) Plan: Assessment E. coli bacteremia S/P Febrile neutropenia right leg infection with MSSA R/O acute CVA history of bilateral inguinal area skin and skin structure infection associated with ovarian cancer metastasis S/P I and D history of chronic left leg ulcers, infected with Pseudomonas and Proteus mirabilis urinary bladder / urethral cancer ovarian cancer multiple sclerosis S/P pacemaker placement S/P right sided port-a-cath placement Plan continue Vancomycin and Merrem (day 12) - complete 10-14 days of antibiotics medical team working up patient's new onset neurologic condition overall prognosis is poor
--- NOTE | 2017-08-17 13:37 | CP.PCM.PN ---
Subjective - Date & Time of Evaluation Date of Evaluation: 08/17/17 Time of Evaluation: 13:10 - Subjective Subjective: Podiatry Progress Note - Dr. Rosales 62 year old female patient seen and evaluated at bedside for left leg wounds. Patient lethargic, complaining of left lower extremity weakness however improved from this morning. No complaints to left leg wounds. GRAEME Hose not present. Dressings to leg wounds clean/dry/intact. 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 Objective - Vital Signs/Intake and Output Vital Signs (last 24 hours): Temp Pulse Resp BP Pulse Ox 97.4 F L 87 20 127/90 100 08/17/17 08:04 08/17/17 08:04 08/17/17 08:04 08/17/17 09:25 08/17/17 08:04 Intake and Output: 08/17/17 08/17/17 06:59 18:59 Intake Total 300 120 Output Total 400 400 Balance -100 -280 - Medications Medications: Current Medications Acetaminophen (Tylenol 325mg Tab) 650 mg PO Q4 PRN PRN Reason: Fever >100.4 F Last Admin: 08/12/17 06:04 Dose: 650 mg Aspirin (Ecotrin) 81 mg PO DAILY [facility] Last Admin: 08/16/17 09:35 Dose: 81 mg Aspirin (Aspirin Chewable) 81 mg PO DAILY [facility] Atenolol (Tenormin) 25 mg PO DAILY [facility] Last Admin: 08/16/17 09:27 Dose: 25 mg Benzonatate (Tessalon Perles) 100 mg PO TID [facility] Last Admin: 08/16/17 17:05 Dose: 100 mg Fluticasone Propionate (Flonase) 1 actuation NS DAILY [facility] Last Admin: 08/17/17 09:24 Dose: 1 spr Furosemide (Lasix) 40 mg IVP DAILY [facility] Last Admin: 08/17/17 09:25 Dose: 40 mg Vancomycin HCl (Vancomycin 1gm) 1 gm in 250 mls @ 167 mls/hr IVPB Q12H [facility] PRN Reason: Protocol Stop: 08/26/17 10:16 Last Admin: 08/17/17 09:23 Dose: 167 mls/hr Meropenem/Sodium Chloride (Meropenem 1g/Ns 100ml Ivpb) 1 gm in 100 mls @ 100 mls/hr IVPB Q8 [facility] PRN Reason: Protocol Stop: 08/21/17 14:01 Last Admin: 08/17/17 06:24 Dose: 100 mls/hr Dextrose/Sodium Chloride (Dextrose 5%/0.45% Ns 1000 Ml) 1,000 mls @ 60 mls/hr IV .[id number] [facility] Last Admin: 08/17/17 09:17 Dose: 60 mls/hr Isosorbide Mononitrate (Imdur) 60 mg PO DAILY [facility] Last Admin: 08/16/17 09:43 Dose: 60 mg Levalbuterol HCl (Xopenex) 0.63 mg IH TIDRESP [facility] Last Admin: 08/17/17 07:28 Dose: 0.63 mg Lidocaine/Prilocaine (Emla) 0 gm TOP TID PRN PRN Reason: Pain, Mild (1-3) Last Admin: 08/14/17 09:35 Dose: 1 applic Magnesium Oxide (Mag-Ox) 400 mg PO BID [facility] Last Admin: 08/16/17 17:04 Dose: 400 mg Metoprolol Tartrate (Lopressor) 25 mg PO BID [facility] Last Admin: 08/16/17 17:02 Dose: 25 mg Morphine Sulfate (Morphine) 4 mg IVP Q4H PRN PRN Reason: Pain, severe (8-10) Last Admin: 08/17/17 12:10 Dose: 4 mg Mupirocin (Bactroban Ointment) 1 gm TOP BID [facility] Last Admin: 08/17/17 09:17 Dose: 1 applic Glatiramer Acetate [ (Copaxone] 40 Mg) 40 mg SQ MWF [facility] Last Admin: 08/16/17 17:02 Dose: Not Given Tapentadol Hcl [ (Nucynta] 100 Mg) 100 mg PO TID [facility] Last Admin: 08/16/17 17:05 Dose: Not Given Tapentadol Hcl [ (Nucynta Er] 150 Mg) 150 mg PO Q12H [facility] Last Admin: 08/16/17 17:05 Dose: Not Given Nystatin (Nystatin Oral Susp) 5 ml PO 5XD [facility] Last Admin: 08/17/17 06:25 Dose: Not Given Ondansetron HCl (Zofran Inj) 4 mg IVP Q6H PRN PRN Reason: Nausea/Vomiting Last Admin: 08/09/17 21:52 Dose: 4 mg Pantoprazole Sodium (Protonix Inj) 40 mg IVP DAILY [facility] Last Admin: 08/17/17 09:25 Dose: 40 mg Polyethylene Glycol (Miralax) 17 gm PO BID [facility] Last Admin: 08/17/17 12:07 Dose: Not Given Prednisone (Prednisone Tab) 10 mg PO DAILY [facility] Sucralfate (Carafate Oral Susp) 1 gm PO 0630,1130,1630,2200 [facility] - Labs Labs: 08/16/17 06:15 08/16/17 06:15 PT 13.4 SECONDS (9.4-12.5) H 08/06/17 15:30 INR 1.17 (0.93-1.08) H 08/06/17 15:30 APTT 46.9 Seconds (25.1-36.5) H 08/06/17 15:30 - Constitutional Appears: Well, Non-toxic, No Acute Distress - Extremities Exam Additional comments: Bilateral LE exam: VASC: DP/PT pulses are palpable 1/4, Cap refill time: < 3 sec to all digits, Temp gradient: warm to cool from proximal to distal, no edema noted DERM: 2 wounds present on the distal medial leg and one on the distal anterior aspect. Proximal wound measures approx 0.5cm x 0.4cm x 0.1cm with minimal serosanguinous drainage; wound appears to be decreasing in size and epithelializing. Distal medial wound measures approx. 0.3cm x 0.3cm x 0.1 cm; wound appears to be decreasing in size and epithelializing. Distal anterior wound has epithelialized. All wound beds are noted to have a granular base and hyperpigmented rim, no tunneling, no undermining, no purulence, no malodor, no dejah-wound erythema. NEURO: Protective sensation grossly intact ORTHO: No pain on palpation of left leg wounds. LLE 3/5 dorsiflexors, plantarflexors, inverters, and everters . RLE 5/5 dorsiflexors, plantarflexors, inverters, and everters. - Neurological Exam Neurological Exam: Alert, Awake, Oriented x3 - Psychiatric Exam Psychiatric exam: Normal Affect, Normal Mood Assessment and Plan - Assessment and Plan (Free Text) Assessment: 62 year old female patient with Stage III LLE ulcerations x2, improving Plan: Patient seen and evaluated at bedside with attending, Dr. Rosales Afebrile Left leg wound culture (08/08/17) reveals growth of staphylococcus aureus Bilateral venous duplex ordered r/o DVT - Negative for DVT b/l, superficial thrombophlebitis in proximal left saphenous vein Continue local wound care - Acticoat and bordered gauze to both wounds Wounds appear to be improving Continue GRAEME Hose Continue abx per ID - Vancomycin and Merrem (day 12)- complete 10-14 days of antibiotics Pain control - Morphine, Emla TD Patient may follow up at wound care center once discharged Podiatry will continue to follow while patient in house
--- NOTE | 2017-08-17 14:23 | PN ---
DATE: 08/17/2017 CARDIOLOGY FOLLOWUP SUBJECTIVE: The patient was scheduled for cardiac catheterization today, but it was canceled because of her slurred speech earlier today. CT scan was evaluated and there is no evidence for new CVA. Her symptoms are now resolving. PHYSICAL EXAMINATION: VITAL SIGNS: Blood pressure is 120/90, heart rates in the 80s. NECK: Negative JVD. LUNGS: Without rales. HEART: With S1, S2. EXTREMITIES: Without edema. LABORATORY DATA: Her hemoglobin is 10.4. Chemistries: BUN and creatinine are [address] scan of the head revealed old CVAs. No acute events. There is no intracranial bleed. ASSESSMENT AND PLAN: Given these findings, the patient unlikely had a new cerebrovascular accident. There is a question whether her symptoms were related to transient exacerbation of her multiple sclerosis. Because of her ongoing chest pain symptoms, we will proceed to catheterization in the morning. Kwame Granado MD
--- NOTE | 2017-08-17 15:20 | PN ---
DATE: SUBJECTIVE: The patient is 62 years old, seen and examined last night and noted the patient was found to have some slurred speech and had difficulty swallowing, but the patient states once in a while she gets that because of her multiple sclerosis; however, she is hungry and she wants to eat. Still has some chest discomfort, some epigastric discomfort. PHYSICAL EXAMINATION: VITAL SIGNS: She is afebrile, pulse 87, respirations 20, blood pressure 127/90. LUNGS: Bilateral good airflow. No rhonchi or crackle. HEART: S1 and S2 audible. ABDOMEN: Soft. Nontender. No rebound. No guarding. NEUROLOGIC: The patient is awake, alert, oriented, able to communicate. EXTREMITIES: Moves all extremity. Has pain in the left foot and the leg. Has difficulty because of that. GENITOURINARY: She has ileal conduit after cystectomy and draining clear urine. No hematuria. LABORATORY DATA: She had CT scan of the head done that shows no acute infarction, mass or hemorrhage. No intracranial abnormality. She has diffuse age-related cerebral atrophy and mild chronic microvascular changes with no acute intracranial abnormality. ASSESSMENT: 1. Brief episode of dysphagia and slurred speech. CT scan is negative for acute stroke. 2. Intermittent chest pain secondary to unstable angina. 3. Cardiomyopathy, status post defibrillator placement. 4. Coronary artery disease, status post angioplasty. 5. Metastatic ovarian cancer. 6. History of bladder cancer, status post conduit formation. PLAN: The patient is on aspirin 81 daily. She is on Carafate. We will proceed to advance her diet. We will stop her IV fluid. She developed congestive heart failure with fluids. Continue her on isosorbide and metoprolol. She will be given Plavix today and she is scheduled to have cardiac cath tomorrow and she also wanted to cancel her DNR wish. She want everything done in case she has any respiratory difficulty. The patient is scheduled to have cardiac cath done tomorrow. After that, she will be transferred to [facility]. Kimberley Hernadez MD
--- NOTE | 2017-08-17 16:59 | CP.PCM.PN ---
<Jeb,Kovil V - Last Filed: 08/17/17 23:26> Objective - Vital Signs/Intake and Output Vital Signs (last 24 hours): Temp Pulse Resp BP Pulse Ox 97.4 F L 83 20 125/87 100 08/17/17 16:00 08/17/17 17:08 08/17/17 16:00 08/17/17 17:08 08/17/17 16:00 Intake and Output: 08/17/17 08/18/17 18:59 06:59 Intake Total 120 300 Output Total 850 300 Balance -730 0 - Medications Medications: Current Medications Acetaminophen (Tylenol 325mg Tab) 650 mg PO Q4 PRN PRN Reason: Fever >100.4 F Last Admin: 08/12/17 06:04 Dose: 650 mg Aspirin (Ecotrin) 81 mg PO DAILY [facility] Last Admin: 08/17/17 14:17 Dose: 81 mg Aspirin (Aspirin Chewable) 81 mg PO DAILY [facility] Atenolol (Tenormin) 25 mg PO DAILY [facility] Last Admin: 08/17/17 14:21 Dose: Not Given Benzonatate (Tessalon Perles) 100 mg PO TID [facility] Last Admin: 08/17/17 17:11 Dose: 100 mg Clopidogrel Bisulfate (Plavix) 75 mg PO ONCE ONE Stop: 08/18/17 06:01 Clopidogrel Bisulfate (Plavix) 75 mg PO DAILY [facility] Fluticasone Propionate (Flonase) 1 actuation NS DAILY [facility] Last Admin: 08/17/17 09:24 Dose: 1 spr Furosemide (Lasix) 40 mg IVP DAILY [facility] Last Admin: 08/17/17 09:25 Dose: 40 mg Vancomycin HCl (Vancomycin 1gm) 1 gm in 250 mls @ 167 mls/hr IVPB Q12H [facility] PRN Reason: Protocol Stop: 08/26/17 10:16 Last Admin: 08/17/17 22:28 Dose: 167 mls/hr Meropenem/Sodium Chloride (Meropenem 1g/Ns 100ml Ivpb) 1 gm in 100 mls @ 100 mls/hr IVPB Q8 [facility] PRN Reason: Protocol Stop: 08/21/17 14:01 Last Admin: 08/17/17 21:02 Dose: 100 mls/hr Isosorbide Mononitrate (Imdur) 60 mg PO DAILY [facility] Last Admin: 08/17/17 17:08 Dose: Not Given Levalbuterol HCl (Xopenex) 0.63 mg IH TIDRESP [facility] Last Admin: 08/17/17 20:32 Dose: 0.63 mg Lidocaine/Prilocaine (Emla) 0 gm TOP TID PRN PRN Reason: Pain, Mild (1-3) Last Admin: 08/14/17 09:35 Dose: 1 applic Magnesium Oxide (Mag-Ox) 400 mg PO BID [facility] Last Admin: 08/17/17 17:09 Dose: 400 mg Metoprolol Tartrate (Lopressor) 25 mg PO BID [facility] Last Admin: 08/17/17 17:08 Dose: 25 mg Morphine Sulfate (Morphine) 4 mg IVP Q4H PRN PRN Reason: Pain, severe (8-10) Last Admin: 08/17/17 22:00 Dose: 4 mg Mupirocin (Bactroban Ointment) 1 gm TOP BID [facility] Last Admin: 08/17/17 17:07 Dose: 1 applic Glatiramer Acetate [ (Copaxone] 40 Mg) 40 mg SQ MWF [facility] Last Admin: 08/16/17 17:02 Dose: Not Given Tapentadol Hcl [ (Nucynta] 100 Mg) 100 mg PO TID [facility] Last Admin: 08/17/17 17:11 Dose: Not Given Tapentadol Hcl [ (Nucynta Er] 150 Mg) 150 mg PO Q12H [facility] Last Admin: 08/17/17 17:11 Dose: Not Given Nystatin (Nystatin Oral Susp) 5 ml PO 5XD [facility] Last Admin: 08/17/17 21:02 Dose: 5 ml Ondansetron HCl (Zofran Inj) 4 mg IVP Q6H PRN PRN Reason: Nausea/Vomiting Last Admin: 08/09/17 21:52 Dose: 4 mg Pantoprazole Sodium (Protonix Inj) 40 mg IVP DAILY [facility] Last Admin: 08/17/17 09:25 Dose: 40 mg Polyethylene Glycol (Miralax) 17 gm PO BID [facility] Last Admin: 08/17/17 17:10 Dose: 17 gm Prednisone (Prednisone Tab) 10 mg PO DAILY [facility] Last Admin: 08/17/17 17:10 Dose: Not Given Sucralfate (Carafate Oral Susp) 1 gm PO 0630,1130,1630,2200 [facility] Last Admin: 08/17/17 21:02 Dose: 1 gm - Labs Labs: 08/16/17 06:15 08/16/17 06:15 PT 13.4 SECONDS (9.4-12.5) H 08/06/17 15:30 INR 1.17 (0.93-1.08) H 08/06/17 15:30 APTT 46.9 Seconds (25.1-36.5) H 08/06/17 15:30 Attending/Attestation - Attestation I have personally seen and examined this patient.: Yes I have fully participated in the care of the patient.: Yes I have reviewed all pertinent clinical information, including history, physical exam and plan: Yes Notes (Text): This is an addendum to GI progress report dictated by Annie Layton APN.The patient was seen and examined earlier. Medical records, lab studies, imagings were reviewed. Last 24 hours events reviewed. 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 Patient A/A/O in bed, speech sound slightly slurred, NPO await swallow evaluation. Reports no BM. Objective - Vital Signs/Intake and Output Vital Signs (last 24 hours): Temp Pulse Resp BP Pulse Ox 97.4 F L 83 20 125/87 100 08/17/17 16:00 08/17/17 16:00 08/17/17 16:00 08/17/17 16:00 08/17/17 16:00 Intake and Output: 08/17/17 08/17/17 06:59 18:59 Intake Total 300 120 Output Total 400 850 Balance -100 -730 - Medications Medications: Current Medications Acetaminophen (Tylenol 325mg Tab) 650 mg PO Q4 PRN PRN Reason: Fever >100.4 F Last Admin: 08/12/17 06:04 Dose: 650 mg Aspirin (Ecotrin) 81 mg PO DAILY [facility] Last Admin: 08/17/17 14:17 Dose: 81 mg Aspirin (Aspirin Chewable) 81 mg PO DAILY [facility] Atenolol (Tenormin) 25 mg PO DAILY [facility] Last Admin: 08/17/17 14:21 Dose: Not Given Benzonatate (Tessalon Perles) 100 mg PO TID [facility] Last Admin: 08/17/17 14:21 Dose: 100 mg Clopidogrel Bisulfate (Plavix) 75 mg PO ONCE ONE Stop: 08/18/17 06:01 Clopidogrel Bisulfate (Plavix) 75 mg PO DAILY [facility] Fluticasone Propionate (Flonase) 1 actuation NS DAILY [facility] Last Admin: 08/17/17 09:24 Dose: 1 spr Furosemide (Lasix) 40 mg IVP DAILY [facility] Last Admin: 08/17/17 09:25 Dose: 40 mg Vancomycin HCl (Vancomycin 1gm) 1 gm in 250 mls @ 167 mls/hr IVPB Q12H [facility] PRN Reason: Protocol Stop: 08/26/17 10:16 Last Admin: 08/17/17 09:23 Dose: 167 mls/hr Meropenem/Sodium Chloride (Meropenem 1g/Ns 100ml Ivpb) 1 gm in 100 mls @ 100 mls/hr IVPB Q8 [facility] PRN Reason: Protocol Stop: 08/21/17 14:01 Last Admin: 08/17/17 14:18 Dose: 100 mls/hr Isosorbide Mononitrate (Imdur) 60 mg PO DAILY [facility] Last Admin: 08/16/17 09:43 Dose: 60 mg Levalbuterol HCl (Xopenex) 0.63 mg IH TIDRESP [facility] Last Admin: 08/17/17 13:13 Dose: 0.63 mg Lidocaine/Prilocaine (Emla) 0 gm TOP TID PRN PRN Reason: Pain, Mild (1-3) Last Admin: 08/14/17 09:35 Dose: 1 applic Magnesium Oxide (Mag-Ox) 400 mg PO BID [facility] Last Admin: 08/16/17 17:04 Dose: 400 mg Metoprolol Tartrate (Lopressor) 25 mg PO BID [facility] Last Admin: 08/17/17 14:18 Dose: Not Given Morphine Sulfate (Morphine) 4 mg IVP Q4H PRN PRN Reason: Pain, severe (8-10) Last Admin: 08/17/17 12:10 Dose: 4 mg Mupirocin (Bactroban Ointment) 1 gm TOP BID [facility] Last Admin: 08/17/17 09:17 Dose: 1 applic Glatiramer Acetate [ (Copaxone] 40 Mg) 40 mg SQ MWF [facility] Last Admin: 08/16/17 17:02 Dose: Not Given Tapentadol Hcl [ (Nucynta] 100 Mg) 100 mg PO TID [facility] Last Admin: 08/17/17 14:20 Dose: Not Given Tapentadol Hcl [ (Nucynta Er] 150 Mg) 150 mg PO Q12H [facility] Last Admin: 08/16/17 17:05 Dose: Not Given Nystatin (Nystatin Oral Susp) 5 ml PO 5XD [facility] Last Admin: 08/17/17 14:19 Dose: 5 ml Ondansetron HCl (Zofran Inj) 4 mg IVP Q6H PRN PRN Reason: Nausea/Vomiting Last Admin: 08/09/17 21:52 Dose: 4 mg Pantoprazole Sodium (Protonix Inj) 40 mg IVP DAILY [facility] Last Admin: 08/17/17 09:25 Dose: 40 mg Polyethylene Glycol (Miralax) 17 gm PO BID [facility] Last Admin: 08/17/17 12:07 Dose: Not Given Prednisone (Prednisone Tab) 10 mg PO DAILY [facility] Sucralfate (Carafate Oral Susp) 1 gm PO 0630,1130,1630,2200 [facility] - Labs Labs: 08/16/17 06:15 08/16/17 06:15 PT 13.4 SECONDS (9.4-12.5) H 08/06/17 15:30 INR 1.17 (0.93-1.08) H 08/06/17 15:30 APTT 46.9 Seconds (25.1-36.5) H 08/06/17 15:30 - Constitutional Appears: No Acute Distress - Head Exam Head Exam: NORMOCEPHALIC - Eye Exam Eye Exam: Normal appearance. absent: Scleral icterus - ENT Exam ENT Exam: Mucous Membranes Moist - Respiratory Exam Respiratory Exam: NORMAL BREATHING PATTERN. absent: Respiratory Distress - Cardiovascular Exam Cardiovascular Exam: +S1, +S2 - GI/Abdominal Exam GI & Abdominal Exam: Soft, Normal Bowel Sounds. absent: Guarding, Tenderness, Rebound Additional comments: ileal conduit - Extremities Exam Extremities Exam: absent: Calf Tenderness, Pedal Edema - Neurological Exam Neurological Exam: Alert, Awake, Oriented x3 - Skin Skin Exam: Dry, Warm Assessment and Plan - Assessment and Plan (Free Text) Assessment: Assessment: S/P Rapid ,possible stroke, ct head negative for acute bleed or infarct, chronic infarct reported w/ diffuse age related cerebral atrophy Fever, improving leukocytosis Metastatic ovarian cancer status post chemotherapy about 2 weeks ago History of bladder cancer status post ileal conduit Elevated LFTs, differentials to consider his hepatic congestion, patient with history of elevated BNP, 17,000, medication-induced, on IV antibiotics and status post chemotherapy, patient with cholelithiasis, CBD 5 mm no dilatation., Hepatitis panel negative Epigastric pain, borderline troponin, status post endoscopy 06/2017 peptic ulcer disease found, just slow gastric motility History of multiple sclerosis Constipation status post Relistor Plan: Trend LFTs Avoid hepatotoxic medications On IV antibiotics:meropenem and vancomycin give dose of Relistor continue MiraLAX to twice a day, hold for stools greater than 2 a day Continue GI prophylaxis Diet as tolerated On prednisone On Carafate On nystatin nuerology FU/ cardiology FU NPO till swallow evaluation Seen and discussed with Dr. Russ.
[2017-08-17] MEDS: Sucralfate 1 gm/10 ml Oral Susp UD PO SCH ×2 (17:07→21:02)
[2017-08-17] MEDS: Magnesium Oxide 400 mg Tab UD PO SCH ×2 (17:09)
--- NOTE | 2017-08-17 21:25 | CON ---
DATE: 08/17/2017 NEUROLOGY CONSULTATION CHIEF COMPLAINT: Slurred speech. HISTORY OF PRESENTING ILLNESS: This is a 62-year-old woman with past medical history of cardiomyopathy, status post defibrillator, coronary artery disease, status post angioplasty, metastatic ovarian cancer, history of bladder cancer, who was admitted for underlying sepsis, pancytopenia, and abdominal pain. She was found to have slurred speech and difficulty with swallowing, which she does get occasionally when she has her MS exacerbations. She follows Dr. Nikolay Jean in [place] for her underlying MS for which she is on Copaxone and she has the medication at home, which is injectable. Currently, her slurred speech sounds a little bit more better. A CAT scan of the head showed no acute intracranial abnormality. We will recommend her to be on aspirin and Plavix for stroke prevention daily. For intermittent chest pain, she could go for a cardiac cath. She is mildly spastic in the lower extremities, but moves all extremities equally. Sensory exam is slightly subjective in terms of decreased pinprick and proprioception up to the calves bilaterally. PAST MEDICAL HISTORY: History of metastatic ovarian cancer; history of bladder cancer; history of coronary artery disease, status post angioplasty; history of multiple sclerosis, on Copaxone 3 times weekly; cardiomyopathy; intermittent chest pain. REVIEW OF SYSTEMS: A 14-point review of systems is negative except as in the HPI. ALLERGIES: NO KNOWN DRUG ALLERGIES. MEDICATIONS: Reviewed by nurse reconciliation sheet. FAMILY HISTORY: Noncontributory. PHYSICAL EXAMINATION: VITAL SIGNS: Temperature of 97.4, pulse rate 82, blood pressure 125/87, respiratory rate of 20 and oxygen saturation 100% by room air. GENERAL: The patient is sitting up in bed, in no acute distress. HEENT: Head is atraumatic and normocephalic. PERRLA. Extraocular muscles intact. NECK: Supple. No JVD. No adenopathy noted. LUNGS: Clear to auscultation. No adventitious sounds. HEART: S1 and S2. Normal rate and rhythm. No murmurs, rubs or gallops. ABDOMEN: Soft, nontender, nondistended. Bowel sounds present. EXTREMITIES: No clubbing, no cyanosis. Peripheral pulses 2+ felt bilaterally. NEUROLOGIC: The patient is alert and oriented to person, place, and year. Recall after 5 minutes is 0/3. Poor attention span and slow thought process. Speech has mild dysarthria, but no aphasia noted. Cranial nerves II through XII intact. Motor: Slightly increased tone throughout the extremities, but moves all extremities equally. Mildly spastic at the lower extremities. Sensory: Decreased light touch and pinprick up to the calves bilaterally. Decreased vibration of the toes. DTRs are 2+ throughout and 1 at the ankles. Coordination: [id number] intact. Gait is deferred for now. LABORATORY DATA: WBC 26.7, hemoglobin of 10.4, hematocrit 33.7, platelet count of 166. Her sodium is 143, potassium 4.5, chloride of 100, carbon dioxide of 36, BUN of 34, creatinine of 0.8. Random glucose of 93. ASSESSMENT AND PLAN: This is a 62-year-old woman with history of cardiomyopathy, status post defibrillator, coronary artery disease, status post angioplasty, hypertension, dyslipidemia, metastatic ovarian cancer, history of bladder cancer, sepsis and generalized weakness and abdominal pain and pancytopenia, undergoing management, had also intermittent chest pain, going for cardiac cath, had a brief episode of dysphagia, slurred speech, which was most likely secondary to underlying multiple sclerosis exacerbation. At this time, it is unlikely a stroke. Her CAT scan of the head showed no acute intracranial abnormalities. We will just recommend for now for her to be on her Copaxone, which is her multiple sclerosis medications and bring in the medication from home for 40 mg subcutaneously Monday, Monday and Monday in addition to be on aspirin 81 mg and Plavix 75 mg for stroke prevention. She is on tapentadol 150 mg p.o. q. 12 hours for chronic pain and continue with current present medical management and physical therapy and occupational therapy and will need Transitional Care Unit. At this time, no further neurological workup is needed. She could follow up with her neurologist, Dr. Nikolay Jean for further management of underlying multiple sclerosis. Thank you for this consult. Robert Vang MD
--- NOTE | 2017-08-18 01:27 | PN ---
DATE: 08/17/2017 SUBJECTIVE: She is complaining of epigastric pain. She had an episode of slurring of speech this morning. A CAT scan of the head done was unremarkable. She had a similar episode in the past. She has multiple sclerosis. Blood count has improved. She is scheduled for cardiac catheterization tomorrow for epigastric pain. REVIEW OF SYSTEMS: As per HPI. Rest of 12-point review of systems reviewed and negative. PHYSICAL EXAMINATION: GENERAL: Comfortable. Lying in bed in no acute distress. VITAL SIGNS: Heart rate is 82 per minute, respiratory rate 20 per minute, blood pressure 130/80, and pulse ox is 98% on room air. HEENT: Normal. NECK: No lymphadenopathy. CHEST: Air entry present and equal bilaterally. No added sound. CARDIOVASCULAR: S1 and S2 normal. No murmur. No gallop. Epigastric pain, constant. ABDOMEN: Soft, nontender. No hepatosplenomegaly. EXTREMITIES: No edema. Swelling is decreased in the left lower extremity. CENTRAL NERVOUS SYSTEM: Alert and oriented x3. Speech improved now. LABORATORY DATA: Reviewed. MEDICATIONS: Reviewed. ASSESSMENT AND PLAN: 1. Stage IV ovarian cancer - status post first cycle of second-line chemotherapy. CA-125 declined from 900 to 500. 2. Pancytopenia, resolved, was chemotherapy-related. 3. Urosepsis, resolved. 4. Currently on anticoagulation for left leg thrombophlebitis. We will continue anticoagulation because she is high risk for deep venous thrombosis. 5. Eliquis 5 mg p.o. b.i.d. 6. Epigastric pain, constant. She will undergo cardiac catheterization tomorrow. Thank you, Dr. Hernadez, for allowing us to participate in Ms. Mcgrath's care. Antonia Lake MD
[2017-08-18] MEDS: Meropenem 1g/NS 100mL IVPB 1 GM/100 ML PIGGYBACK IVPB SCH ×3 (05:03→21:15)
[2017-08-18] MEDS: Morphine 4 mg/ml ISec IVP PRN ×3 (05:03→18:06)
[2017-08-18] MEDS: Sucralfate 1 gm/10 ml Oral Susp UD PO SCH ×4 (06:56→21:06)
[2017-08-18] MEDS: Nystatin 100,000 Units/ml Oral Susp 5 ml UD PO SCH ×5 (06:56→21:06)
[2017-08-18] MEDS: Levalbuterol 0.63 MG/3 ML Inhal Soln UD IH SCH ×2 (08:16→13:46)
[2017-08-18] MEDS: Fluticasone Nasal 50 mcg/Spray NS SCH (09:23)
[2017-08-18] MEDS: Magnesium Oxide 400 mg Tab UD PO SCH ×2 (09:25→17:48)
[2017-08-18] MEDS: POLYETHYLENE GLYCOL 3350 17 GM/Dose PACKET PO SCH ×2 (09:25→17:48)
[2017-08-18] MEDS: Vancomycin 1gm in NS 250ml 1 GM/250 ML BAG IVPB SCH ×2 (09:31→21:16)
--- NOTE | 2017-08-18 10:51 | CP.PCM.PN ---
Subjective - Date & Time of Evaluation Date of Evaluation: 08/18/17 Time of Evaluation: 09:15 - Subjective Subjective: Comfortable, no fevers, less leg pain, less slurring of speech, less leg weakness. Objective - Vital Signs/Intake and Output Vital Signs (last 24 hours): Temp Pulse Resp BP Pulse Ox 97.6 F 83 18 120/78 100 08/18/17 06:00 08/18/17 09:27 08/18/17 06:00 08/18/17 09:27 08/18/17 06:00 Intake and Output: 08/18/17 08/18/17 06:59 18:59 Intake Total 300 360 Output Total 300 600 Balance 0 -240 - Medications Medications: Current Medications Acetaminophen (Tylenol 325mg Tab) 650 mg PO Q4 PRN PRN Reason: Fever >100.4 F Last Admin: 08/12/17 06:04 Dose: 650 mg Aspirin (Ecotrin) 81 mg PO DAILY [facility] Last Admin: 08/18/17 09:22 Dose: Not Given Aspirin (Aspirin Chewable) 81 mg PO DAILY [facility] Last Admin: 08/18/17 09:21 Dose: 81 mg Atenolol (Tenormin) 25 mg PO DAILY [facility] Last Admin: 08/18/17 09:27 Dose: 25 mg Benzonatate (Tessalon Perles) 100 mg PO TID [facility] Last Admin: 08/18/17 09:28 Dose: 100 mg Clopidogrel Bisulfate (Plavix) 75 mg PO DAILY [facility] Fluticasone Propionate (Flonase) 1 actuation NS DAILY [facility] Last Admin: 08/18/17 09:23 Dose: Not Given Furosemide (Lasix) 40 mg IVP DAILY [facility] Last Admin: 08/18/17 09:23 Dose: 40 mg Vancomycin HCl (Vancomycin 1gm) 1 gm in 250 mls @ 167 mls/hr IVPB Q12H [facility] PRN Reason: Protocol Stop: 08/26/17 10:16 Last Admin: 08/18/17 09:31 Dose: 167 mls/hr Meropenem/Sodium Chloride (Meropenem 1g/Ns 100ml Ivpb) 1 gm in 100 mls @ 100 mls/hr IVPB Q8 [facility] PRN Reason: Protocol Stop: 08/21/17 14:01 Last Admin: 08/18/17 05:03 Dose: 100 mls/hr Isosorbide Mononitrate (Imdur) 60 mg PO DAILY [facility] Last Admin: 08/18/17 09:23 Dose: 60 mg Levalbuterol HCl (Xopenex) 0.63 mg IH TIDRESP [facility] Last Admin: 08/18/17 08:16 Dose: 0.63 mg Lidocaine/Prilocaine (Emla) 0 gm TOP TID PRN PRN Reason: Pain, Mild (1-3) Last Admin: 08/14/17 09:35 Dose: 1 applic Magnesium Oxide (Mag-Ox) 400 mg PO BID [facility] Last Admin: 08/18/17 09:25 Dose: 400 mg Metoprolol Tartrate (Lopressor) 25 mg PO BID [facility] Last Admin: 08/18/17 09:24 Dose: 25 mg Morphine Sulfate (Morphine) 4 mg IVP Q4H PRN PRN Reason: Pain, severe (8-10) Last Admin: 08/18/17 05:03 Dose: 4 mg Mupirocin (Bactroban Ointment) 1 gm TOP BID [facility] Last Admin: 08/18/17 09:22 Dose: 1 applic Glatiramer Acetate [ (Copaxone] 40 Mg) 40 mg SQ MWF [facility] Last Admin: 08/16/17 17:02 Dose: Not Given Tapentadol Hcl [ (Nucynta] 100 Mg) 100 mg PO TID [facility] Last Admin: 08/18/17 09:26 Dose: Not Given Tapentadol Hcl [ (Nucynta Er] 150 Mg) 150 mg PO Q12H [facility] Last Admin: 08/18/17 06:56 Dose: Not Given Nystatin (Nystatin Oral Susp) 5 ml PO 5XD [facility] Last Admin: 08/18/17 09:25 Dose: 5 ml Ondansetron HCl (Zofran Inj) 4 mg IVP Q6H PRN PRN Reason: Nausea/Vomiting Last Admin: 08/18/17 05:18 Dose: 4 mg Pantoprazole Sodium (Protonix Inj) 40 mg IVP DAILY [facility] Last Admin: 08/18/17 09:26 Dose: 40 mg Polyethylene Glycol (Miralax) 17 gm PO BID [facility] Last Admin: 08/18/17 09:25 Dose: Not Given Prednisone (Prednisone Tab) 10 mg PO DAILY [facility] Last Admin: 08/18/17 09:25 Dose: 10 mg Sucralfate (Carafate Oral Susp) 1 gm PO 0630,1130,1630,2200 [facility] Last Admin: 08/18/17 06:56 Dose: Not Given - Labs Labs: 08/16/17 06:15 08/16/17 06:15 PT 13.4 SECONDS (9.4-12.5) H 08/06/17 15:30 INR 1.17 (0.93-1.08) H 08/06/17 15:30 APTT 46.9 Seconds (25.1-36.5) H 08/06/17 15:30 - Constitutional Appears: Chronically Ill - Head Exam Head Exam: NORMAL INSPECTION - ENT Exam ENT Exam: Mucous Membranes Moist - Neck Exam Neck Exam: absent: Meningismus - Respiratory Exam Respiratory Exam: Decreased Breath Sounds - Cardiovascular Exam Cardiovascular Exam: +S1, +S2 - GI/Abdominal Exam GI & Abdominal Exam: Soft. absent: Tenderness Assessment and Plan - Assessment and Plan (Free Text) Plan: Assessment E. coli bacteremia S/P Febrile neutropenia right leg infection with MSSA R/O acute CVA history of bilateral inguinal area skin and skin structure infection associated with ovarian cancer metastasis S/P I and D history of chronic left leg ulcers, infected with Pseudomonas and Proteus mirabilis urinary bladder / urethral cancer ovarian cancer multiple sclerosis S/P pacemaker placement S/P right sided port-a-cath placement Plan continue Vancomycin and Merrem (day 13) - complete 10-14 days of antibiotics as per Neuro - her acute neurologic condition may be exacerbation of her multiple sclerosis overall prognosis is poor
[2017-08-18] MEDS ORDERED: GLATIRAMER ACETATE 40 MG SQ SCH (10:56)
[2017-08-18] MEDS ORDERED: Midazolam 2 MG/2 ML VIAL ONE ×2 (11:45→12:04)
[2017-08-18] MEDS ORDERED: Iohexol 350mgl/ml 50 ML ONE (11:45)
[2017-08-18] MEDS ORDERED: Lidocaine 2% Inj (20ml) ONE (11:46)
[2017-08-18] MEDS ORDERED: Iodixanol 320 MG/ML 200 ML BOTTLE IV ONE (11:46)
[2017-08-18] MEDS ORDERED: Iodixanol 320 MG/ML 100 ML BOTTLE IV ONE (11:46)
[2017-08-18] MEDS ORDERED: HEPARIN SODIUM/NS 2,000 ML IV ONE (11:46)
[2017-08-18] MEDS ORDERED: Sodium Chloride 0.9% 1,000 ML IV SCH (12:45)
--- NOTE | 2017-08-18 14:11 | CP.PCM.PN ---
Subjective - Date & Time of Evaluation Date of Evaluation: 08/18/17 Time of Evaluation: 13:00 - Subjective Subjective: DATE: 08/18/2017 NEUROLOGY FOLLOW UP CHIEF COMPLAINT: F/U for Slurred speech. SUBJECTIVE: Speech is much better. She needs to be on her home copaxone for her MS. No acute events overnight. PAST MEDICAL HISTORY: History of metastatic ovarian cancer; history of bladder cancer; history of coronary artery disease, status post angioplasty; history of multiple sclerosis, on Copaxone 3 times weekly; cardiomyopathy; intermittent chest pain. REVIEW OF SYSTEMS: A 14-point review of systems is negative except as in the HPI. ALLERGIES: NO KNOWN DRUG ALLERGIES. MEDICATIONS: Reviewed by nurse reconciliation sheet. FAMILY HISTORY: Noncontributory. PHYSICAL EXAMINATION: VITAL SIGNS: Reviewed. GENERAL: The patient is sitting up in bed, in no acute distress. HEENT: Head is atraumatic and normocephalic. PERRLA. Extraocular muscles intact. NECK: Supple. No JVD. No adenopathy noted. LUNGS: Clear to auscultation. No adventitious sounds. HEART: S1 and S2. Normal rate and rhythm. No murmurs, rubs or gallops. ABDOMEN: Soft, nontender, nondistended. Bowel sounds present. EXTREMITIES: No clubbing, no cyanosis. Peripheral pulses 2+ felt bilaterally. NEUROLOGIC: The patient is alert and oriented to person, place, and year. Recall after 5 minutes is 0/3. Poor attention span and slow thought process. Speech has mild dysarthria, but no aphasia noted. Cranial nerves II through XII intact. Motor: Slightly increased tone throughout the extremities, but moves all extremities equally. Mildly spastic at the lower extremities. Sensory: Decreased light touch and pinprick up to the calves bilaterally. Decreased vibration of the toes. DTRs are 2+ throughout and 1 at the ankles. Coordination: [id number] intact. Gait is deferred for now. LABORATORY DATA:Reviewed. ASSESSMENT AND PLAN: This is a 62-year-old woman with history of cardiomyopathy, status post defibrillator, coronary artery disease, status post angioplasty, hypertension, dyslipidemia, metastatic ovarian cancer, history of bladder cancer,sepsis and generalized weakness and abdominal pain and pancytopenia, undergoing management, had also intermittent chest pain, going for cardiac cath, had a brief episode of dysphagia, slurred speech, which was most likely secondary to underlying multiple sclerosis exacerbation. She had ecoli bactermia, ID on board. At this time, it is unlikely a stroke. Her CAT scan of the head showed no acute intracranial abnormalities. We will just recommend for now for her to be on her Copaxone, which is her multiple sclerosis medications and bring in the medication from home for 40 mg subcutaneously Monday, Monday and Monday in addition to be on aspirin 81 mg and Plavix 75 mg for stroke prevention. She is on tapentadol 150 mg p.o. q. 12 hours for chronic pain and continue with current present medical management and physical therapy and occupational therapy and will need ANA. At this time, no further neurological workup is needed. She could follow up with her neurologist, Dr. Nikolay Jean for further management of underlying multiple sclerosis. Thank you Robert Vang MD Objective - Vital Signs/Intake and Output Vital Signs (last 24 hours): Temp Pulse Resp BP Pulse Ox 97.6 F 83 18 120/78 100 08/18/17 06:00 08/18/17 09:27 08/18/17 06:00 08/18/17 09:27 08/18/17 06:00 Intake and Output: 08/18/17 08/18/17 06:59 18:59 Intake Total 300 360 Output Total 300 600 Balance 0 -240 - Medications Medications: Current Medications Acetaminophen (Tylenol 325mg Tab) 650 mg PO Q4 PRN PRN Reason: Fever >100.4 F Last Admin: 08/12/17 06:04 Dose: 650 mg Aspirin (Ecotrin) 81 mg PO DAILY [facility] Last Admin: 08/18/17 09:22 Dose: Not Given Atenolol (Tenormin) 25 mg PO DAILY [facility] Last Admin: 08/18/17 09:27 Dose: 25 mg Benzonatate (Tessalon Perles) 100 mg PO TID [facility] Last Admin: 08/18/17 09:28 Dose: 100 mg Fluticasone Propionate (Flonase) 1 actuation NS DAILY [facility] Last Admin: 08/18/17 09:23 Dose: Not Given Furosemide (Lasix) 40 mg IVP DAILY [facility] Last Admin: 08/18/17 09:23 Dose: 40 mg Vancomycin HCl (Vancomycin 1gm) 1 gm in 250 mls @ 167 mls/hr IVPB Q12H [facility] PRN Reason: Protocol Stop: 08/26/17 10:16 Last Admin: 08/18/17 09:31 Dose: 167 mls/hr Meropenem/Sodium Chloride (Meropenem 1g/Ns 100ml Ivpb) 1 gm in 100 mls @ 100 mls/hr IVPB Q8 [facility] PRN Reason: Protocol Stop: 08/21/17 14:01 Last Admin: 08/18/17 05:03 Dose: 100 mls/hr Sodium Chloride (Sodium Chloride 0.9%) 1,000 mls @ 50 mls/hr IV .Q20H [facility] Stop: 08/18/17 16:00 Last Admin: 08/18/17 13:11 Dose: 50 mls/hr Levalbuterol HCl (Xopenex) 0.63 mg IH TIDRESP [facility] Last Admin: 08/18/17 13:46 Dose: Not Given Lidocaine/Prilocaine (Emla) 0 gm TOP TID PRN PRN Reason: Pain, Mild (1-3) Last Admin: 08/14/17 09:35 Dose: 1 applic Lisinopril (Zestril) 2.5 mg PO DAILY [facility] Magnesium Oxide (Mag-Ox) 400 mg PO BID [facility] Last Admin: 08/18/17 09:25 Dose: 400 mg Morphine Sulfate (Morphine) 4 mg IVP Q4H PRN PRN Reason: Pain, severe (8-10) Last Admin: 08/18/17 05:03 Dose: 4 mg Mupirocin (Bactroban Ointment) 1 gm TOP BID [facility] Last Admin: 08/18/17 09:22 Dose: 1 applic Tapentadol Hcl [ (Nucynta] 100 Mg) 100 mg PO TID [facility] Last Admin: 08/18/17 14:01 Dose: Not Given Tapentadol Hcl [ (Nucynta Er] 150 Mg) 150 mg PO Q12H [facility] Last Admin: 08/18/17 06:56 Dose: Not Given Glatiramer Acetate [ Copaxone] 40 Mg ( Home Med) [facility] Nystatin (Nystatin Oral Susp) 5 ml PO 5XD [facility] Last Admin: 08/18/17 09:25 Dose: 5 ml Ondansetron HCl (Zofran Inj) 4 mg IVP Q6H PRN PRN Reason: Nausea/Vomiting Last Admin: 08/18/17 05:18 Dose: 4 mg Pantoprazole Sodium (Protonix Inj) 40 mg IVP DAILY [facility] Last Admin: 08/18/17 09:26 Dose: 40 mg Polyethylene Glycol (Miralax) 17 gm PO BID [facility] Last Admin: 08/18/17 09:25 Dose: Not Given Prednisone (Prednisone Tab) 10 mg PO DAILY [facility] Last Admin: 08/18/17 09:25 Dose: 10 mg Sucralfate (Carafate Oral Susp) 1 gm PO 0630,1130,1630,2200 [facility] Last Admin: 08/18/17 13:12 Dose: Not Given - Labs Labs: 08/16/17 06:15 08/16/17 06:15 PT 13.4 SECONDS (9.4-12.5) H 08/06/17 15:30 INR 1.17 (0.93-1.08) H 08/06/17 15:30 APTT 46.9 Seconds (25.1-36.5) H 08/06/17 15:30
[2017-08-18] MEDS: GLATIRAMER ACETATE 40 MG SQ SCH (14:53)
--- NOTE | 2017-08-18 14:53 | PN ---
DATE: SUBJECTIVE: The patient is 62 years old, seen and examined. 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 According to Dr. Granado, the interpretation, the patient had patent stent from last night and she has cardiomyopathy with ejection fraction 20%. Otherwise, she is doing well. PHYSICAL EXAMINATION: VITAL SIGNS: She is afebrile, pulse 83, respirations 18, blood pressure 120/78. LUNGS: Bilateral good airflow. No rhonchi or crackle. HEART: S1 and S2 audible. ABDOMEN: Soft. Nontender. No rebound. No guarding. She has ileal conduit that is functioning well. No hematuria. EXTREMITIES: Bilateral leg, she has granulating ulcers. Left foot +1 swelling. LABORATORY EXAM: There is no new lab available today. ASSESSMENT: 1. Cardiomyopathy. 2. Status post defibrillator placement. 3. Metastatic ovarian cancer. 4. Resolving pneumonia. 5. Deconditioning. 6. History of cancer of bladder, status post total cystectomy followed by the ileal conduit formation. PLAN: The patient will be watched post cardiac cath and she can be transferred to TCU tomorrow for rehab. We will continue her on aspirin 81 daily. We will continue on Lasix 40 mg daily. She is getting nebulizer treatment. She has been started on KELBY inhibitors, lisinopril 2.5 daily. Monitor her blood work. She will be transferred to TCU tomorrow when bed is available. Kimberley Hernadez MD
--- NOTE | 2017-08-18 23:27 | CARDCATH ---
PROCEDURE DATE: 08/18/2017 HISTORY: Patient is a 62-year-old woman with a history of PTCA in the past, who presents with recurrence of angina. She also suffers from a history of a dilated cardiomyopathy. She is currently fighting metastatic ovarian CA. Despite maximum medical therapy, the patient continues to experience chest discomfort. Because of this, cardiac catheterization was recommended. PROCEDURE: Left heart catheterization with coronary arteriography and left ventriculogram. The right femoral artery was cannulated with a 6-Khmer sheath. There were no complications. I performed moderate sedation, which included the presence of an independent trained observer that assisted in monitoring the patient's level of consciousness and physiologic status. After administration of Versed and fentanyl, my intra service time was 15 minutes. The findings on catheterization revealed a left ventricle that was diffusely hypokinetic and dilated. Estimated ejection fraction of 25%. Her coronary anatomy revealed a right dominant circulation. The RCA was free of significant disease. The left main artery was unremarkable. The LAD revealed diffuse atherosclerosis with a patent stent in the distal portion. The diagonal vessels revealed intimal irregularities without critical lesions. The circumflex artery and obtuse marginal branches were free of significant disease. Angio-Seal was used to close the left femoral artery site. The patient tolerated the procedure well. In summary, the procedure revealed a patent stent in the distal LAD with no other significant coronary lesions. LV function is consistent with a dilated cardiomyopathy with an EF of 25%. Given these findings, the patient's treatment will be medical. We will discontinue her antianginal medications. She should be on KELBY inhibitor and diuretics with low-dose beta blockers. Kwame Granado MD
[2017-08-19] MEDS: Morphine 4 mg/ml ISec IVP PRN ×3 (01:09→19:38)
[2017-08-19] MEDS: Meropenem 1g/NS 100mL IVPB 1 GM/100 ML PIGGYBACK IVPB SCH ×3 (05:38→22:04)
[2017-08-19] MEDS: Sucralfate 1 gm/10 ml Oral Susp UD PO SCH ×4 (05:39→22:05)
[2017-08-19] MEDS: Levalbuterol 0.63 MG/3 ML Inhal Soln UD IH SCH ×3 (07:22→19:29)
[2017-08-19] MEDS: Fluticasone Nasal 50 mcg/Spray NS SCH (09:30)
[2017-08-19] MEDS: Magnesium Oxide 400 mg Tab UD PO SCH ×2 (09:32→18:01)
[2017-08-19] MEDS: Nystatin 100,000 Units/ml Oral Susp 5 ml UD PO SCH ×4 (09:33→22:06)
[2017-08-19] MEDS: POLYETHYLENE GLYCOL 3350 17 GM/Dose PACKET PO SCH ×2 (09:33→18:01)
[2017-08-19] MEDS: Vancomycin 1gm in NS 250ml 1 GM/250 ML BAG IVPB SCH ×2 (09:36→23:07)
--- NOTE | 2017-08-19 09:46 | CP.PCM.PN ---
<Caitlyn Mendoza - Last Filed: 08/19/17 09:43> Subjective - Date & Time of Evaluation Date of Evaluation: 08/19/17 Time of Evaluation: 09:43 - Subjective Subjective: Podiatry Progress Note - Dr. Morales 62 year old female patient seen and evaluated at bedside for left leg wounds. Patient lethargic, complaining of left lower extremity weakness however improved from this morning. No complaints to left leg wounds. Dressings to leg wounds clean/dry/intact. Offers no pedal complains today. Objective - Vital Signs/Intake and Output Vital Signs (last 24 hours): Temp Pulse Resp BP Pulse Ox 97.8 F 78 19 100/64 100 08/19/17 07:46 08/19/17 07:46 08/19/17 07:46 08/19/17 09:31 08/19/17 07:46 Intake and Output: 08/19/17 08/19/17 06:59 18:59 Intake Total 570 Output Total 1025 Balance -455 - Medications Medications: Current Medications Acetaminophen (Tylenol 325mg Tab) 650 mg PO Q4 PRN PRN Reason: Fever >100.4 F Last Admin: 08/12/17 06:04 Dose: 650 mg Aspirin (Ecotrin) 81 mg PO DAILY [facility] Last Admin: 08/19/17 09:28 Dose: 81 mg Atenolol (Tenormin) 25 mg PO DAILY [facility] Last Admin: 08/19/17 09:35 Dose: Not Given Benzonatate (Tessalon Perles) 100 mg PO TID [facility] Last Admin: 08/19/17 09:36 Dose: 100 mg Fluticasone Propionate (Flonase) 1 actuation NS DAILY [facility] Last Admin: 08/19/17 09:30 Dose: Not Given Furosemide (Lasix) 40 mg IVP DAILY [facility] Last Admin: 08/19/17 09:31 Dose: Not Given Vancomycin HCl (Vancomycin 1gm) 1 gm in 250 mls @ 167 mls/hr IVPB Q12H [facility] PRN Reason: Protocol Stop: 08/26/17 10:16 Last Admin: 08/19/17 09:36 Dose: 167 mls/hr Meropenem/Sodium Chloride (Meropenem 1g/Ns 100ml Ivpb) 1 gm in 100 mls @ 100 mls/hr IVPB Q8 [facility] PRN Reason: Protocol Stop: 08/21/17 14:01 Last Admin: 08/19/17 05:38 Dose: 100 mls/hr Levalbuterol HCl (Xopenex) 0.63 mg IH TIDRESP [facility] Last Admin: 08/19/17 07:22 Dose: 0.63 mg Lidocaine/Prilocaine (Emla) 0 gm TOP TID PRN PRN Reason: Pain, Mild (1-3) Last Admin: 08/14/17 09:35 Dose: 1 applic Lisinopril (Zestril) 2.5 mg PO DAILY [facility] Last Admin: 08/19/17 09:36 Dose: Not Given Magnesium Oxide (Mag-Ox) 400 mg PO BID [facility] Last Admin: 08/19/17 09:32 Dose: 400 mg Morphine Sulfate (Morphine) 4 mg IVP Q4H PRN PRN Reason: Pain, severe (8-10) Last Admin: 08/19/17 01:09 Dose: 4 mg Mupirocin (Bactroban Ointment) 1 gm TOP BID [facility] Last Admin: 08/18/17 18:38 Dose: 1 applic Tapentadol Hcl [ (Nucynta] 100 Mg) 100 mg PO TID [facility] Last Admin: 08/19/17 09:35 Dose: Not Given Tapentadol Hcl [ (Nucynta Er] 150 Mg) 150 mg PO Q12H [facility] Last Admin: 08/18/17 17:49 Dose: Not Given Glatiramer Acetate [ Copaxone] 40 Mg ( Home Med) 40 mg SQ MWF [facility] Last Admin: 08/18/17 14:53 Dose: 40 mg Nystatin (Nystatin Oral Susp) 5 ml PO 5XD [facility] Last Admin: 08/19/17 09:33 Dose: 5 ml Ondansetron HCl (Zofran Inj) 4 mg IVP Q6H PRN PRN Reason: Nausea/Vomiting Last Admin: 08/18/17 05:18 Dose: 4 mg Pantoprazole Sodium (Protonix Inj) 40 mg IVP DAILY [facility] Last Admin: 08/19/17 09:34 Dose: 40 mg Polyethylene Glycol (Miralax) 17 gm PO BID [facility] Last Admin: 08/19/17 09:33 Dose: 17 gm Prednisone (Prednisone Tab) 10 mg PO DAILY [facility] Last Admin: 08/19/17 09:34 Dose: 10 mg Sucralfate (Carafate Oral Susp) 1 gm PO 0630,1130,1630,2200 [facility] Last Admin: 08/19/17 05:39 Dose: 1 gm - Labs Labs: 08/16/17 06:15 08/16/17 06:15 PT 13.4 SECONDS (9.4-12.5) H 08/06/17 15:30 INR 1.17 (0.93-1.08) H 08/06/17 15:30 APTT 46.9 Seconds (25.1-36.5) H 08/06/17 15:30 - Constitutional Appears: Well, Non-toxic, No Acute Distress - Extremities Exam Additional comments: Dressing is clean, dry and intact - Neurological Exam Neurological Exam: Alert, Awake, Oriented x3 - Psychiatric Exam Psychiatric exam: Normal Affect, Normal Mood Assessment and Plan - Assessment and Plan (Free Text) Assessment: 62 year old female patient with Stage III LLE ulcerations x2, improving Plan: Patient seen and evaluated at bedside with attending, Dr. Morales Afebrile Left leg wound culture (08/08/17) reveals growth of staphylococcus aureus Bilateral venous duplex ordered r/o DVT - Negative for DVT b/l, superficial thrombophlebitis in proximal left saphenous vein Continue local wound care - Acticoat and bordered gauze to both wounds - will change dressing on Monday Wounds appear to be improving Continue GRAEME Hose Continue abx per ID - Vancomycin and Merrem (day 12)- complete 10-14 days of antibiotics Pain control - Morphine, Emla TD Patient may follow up at wound care center once discharged Podiatry will continue to follow while patient in house <Nolberto Morales - Last Filed: 08/22/17 11:49> Objective - Vital Signs/Intake and Output Vital Signs (last 24 hours): Temp Pulse Resp BP Pulse Ox 97.8 F 95 H 19 121/87 100 08/21/17 16:00 08/21/17 16:00 08/21/17 16:00 08/21/17 16:00 08/21/17 16:00 - Labs Labs: 08/21/17 05:30 08/21/17 05:30 PT 13.4 SECONDS (9.4-12.5) H 08/06/17 15:30 INR 1.17 (0.93-1.08) H 08/06/17 15:30 APTT 46.9 Seconds (25.1-36.5) H 08/06/17 15:30 Attending/Attestation - Attestation I have personally seen and examined this patient.: Yes I have fully participated in the care of the patient.: Yes I have reviewed all pertinent clinical information, including history, physical exam and plan: Yes
--- NOTE | 2017-08-19 10:41 | PN ---
DATE: 08/19/2017 CARDIOLOGY FOLLOWUP SUBJECTIVE: The patient is comfortable status post catheterization yesterday. PHYSICAL EXAMINATION VITAL SIGNS: Blood pressure is 100/64, the heart rates in the 70s. NECK: Negative JVD. LUNGS: Without rales. HEART: Reveals S1 and S2. EXTREMITIES: The left groin site is stable. LABORATORY DATA: Hemoglobin was not measured. IMPRESSION: Status post catheterization, which revealed a patent stent in the left anterior descending artery. Her left ventricular function is compromised with an ejection fraction of 25%, which is unchanged from her previous. PLAN: Given these findings, her cardiomyopathy has been treated and has been started on medication which includes low dose lisinopril, p.o. Lasix as well as low-dose beta blockers. There is no evidence of CHF. We will follow up as needed. Kwame Granado MD
[2017-08-19] MEDS ORDERED: Magnesium Citrate Oral SOL (300 ml) PO ONE (11:24)
--- NOTE | 2017-08-19 11:34 | CP.PCM.PN ---
Subjective - Date & Time of Evaluation Date of Evaluation: 08/19/17 Time of Evaluation: 10:45 - Subjective Subjective: Patient is feeling better today , no fevers, less left leg weakness, no slurring of speech. Objective - Vital Signs/Intake and Output Vital Signs (last 24 hours): Temp Pulse Resp BP Pulse Ox 97.8 F 78 19 100/64 100 08/19/17 07:46 08/19/17 07:46 08/19/17 07:46 08/19/17 09:31 08/19/17 07:46 Intake and Output: 08/19/17 08/19/17 06:59 18:59 Intake Total 570 Output Total 1025 Balance -455 - Medications Medications: Current Medications Acetaminophen (Tylenol 325mg Tab) 650 mg PO Q4 PRN PRN Reason: Fever >100.4 F Last Admin: 08/12/17 06:04 Dose: 650 mg Aspirin (Ecotrin) 81 mg PO DAILY [facility] Last Admin: 08/19/17 09:28 Dose: 81 mg Atenolol (Tenormin) 25 mg PO DAILY [facility] Last Admin: 08/19/17 09:35 Dose: Not Given Benzonatate (Tessalon Perles) 100 mg PO TID [facility] Last Admin: 08/19/17 09:36 Dose: 100 mg Fluticasone Propionate (Flonase) 1 actuation NS DAILY [facility] Last Admin: 08/19/17 09:30 Dose: Not Given Furosemide (Lasix) 40 mg IVP DAILY [facility] Last Admin: 08/19/17 09:31 Dose: Not Given Vancomycin HCl (Vancomycin 1gm) 1 gm in 250 mls @ 167 mls/hr IVPB Q12H [facility] PRN Reason: Protocol Stop: 08/26/17 10:16 Last Admin: 08/19/17 09:36 Dose: 167 mls/hr Meropenem/Sodium Chloride (Meropenem 1g/Ns 100ml Ivpb) 1 gm in 100 mls @ 100 mls/hr IVPB Q8 [facility] PRN Reason: Protocol Stop: 08/21/17 14:01 Last Admin: 08/19/17 05:38 Dose: 100 mls/hr Levalbuterol HCl (Xopenex) 0.63 mg IH TIDRESP [facility] Last Admin: 08/19/17 07:22 Dose: 0.63 mg Lidocaine/Prilocaine (Emla) 0 gm TOP TID PRN PRN Reason: Pain, Mild (1-3) Last Admin: 08/14/17 09:35 Dose: 1 applic Lisinopril (Zestril) 2.5 mg PO DAILY [facility] Last Admin: 08/19/17 09:36 Dose: Not Given Magnesium Oxide (Mag-Ox) 400 mg PO BID [facility] Last Admin: 08/19/17 09:32 Dose: 400 mg Morphine Sulfate (Morphine) 4 mg IVP Q4H PRN PRN Reason: Pain, severe (8-10) Last Admin: 08/19/17 01:09 Dose: 4 mg Mupirocin (Bactroban Ointment) 1 gm TOP BID [facility] Last Admin: 08/18/17 18:38 Dose: 1 applic Tapentadol Hcl [ (Nucynta] 100 Mg) 100 mg PO TID [facility] Last Admin: 08/19/17 09:35 Dose: Not Given Tapentadol Hcl [ (Nucynta Er] 150 Mg) 150 mg PO Q12H [facility] Last Admin: 08/18/17 17:49 Dose: Not Given Glatiramer Acetate [ Copaxone] 40 Mg ( Home Med) 40 mg SQ MWF [facility] Last Admin: 08/18/17 14:53 Dose: 40 mg Nystatin (Nystatin Oral Susp) 5 ml PO 5XD [facility] Last Admin: 08/19/17 09:33 Dose: 5 ml Ondansetron HCl (Zofran Inj) 4 mg IVP Q6H PRN PRN Reason: Nausea/Vomiting Last Admin: 08/18/17 05:18 Dose: 4 mg Pantoprazole Sodium (Protonix Inj) 40 mg IVP DAILY [facility] Last Admin: 08/19/17 09:34 Dose: 40 mg Polyethylene Glycol (Miralax) 17 gm PO BID [facility] Last Admin: 08/19/17 09:33 Dose: 17 gm Prednisone (Prednisone Tab) 10 mg PO DAILY [facility] Last Admin: 08/19/17 09:34 Dose: 10 mg Sucralfate (Carafate Oral Susp) 1 gm PO 0630,1130,1630,2200 [facility] Last Admin: 08/19/17 05:39 Dose: 1 gm - Labs Labs: 08/16/17 06:15 08/16/17 06:15 PT 13.4 SECONDS (9.4-12.5) H 08/06/17 15:30 INR 1.17 (0.93-1.08) H 08/06/17 15:30 APTT 46.9 Seconds (25.1-36.5) H 08/06/17 15:30 - Constitutional Appears: Chronically Ill - Head Exam Head Exam: NORMAL INSPECTION - Neck Exam Neck Exam: absent: Meningismus - Respiratory Exam Respiratory Exam: Decreased Breath Sounds - Cardiovascular Exam Cardiovascular Exam: +S1, +S2 - GI/Abdominal Exam GI & Abdominal Exam: Soft. absent: Tenderness Assessment and Plan - Assessment and Plan (Free Text) Plan: Assessment E. coli bacteremia S/P Febrile neutropenia right leg infection with MSSA R/O acute CVA history of bilateral inguinal area skin and skin structure infection associated with ovarian cancer metastasis S/P I and D history of chronic left leg ulcers, infected with Pseudomonas and Proteus mirabilis urinary bladder / urethral cancer ovarian cancer multiple sclerosis S/P pacemaker placement S/P right sided port-a-cath placement Plan continue Vancomycin and Merrem (day 14) - complete 10-14 days of antibiotics - will d/c antibiotics after today as per Neuro - her acute neurologic condition may be exacerbation of her multiple sclerosis overall prognosis is poor
--- NOTE | 2017-08-19 13:16 | PN ---
DATE: SUBJECTIVE: The patient is 62 years old, seen and examined. No chest pain, no shortness of breath. Does complain of some epigastric discomfort. Did not have bowel movement for almost four days. Does have appetite. PHYSICAL EXAMINATION VITAL SIGNS: She is afebrile, pulse 78, respirations 19, blood pressure 100/64. LUNGS: Bilateral good airflow. No rhonchi or crackle. HEART: S1, S2 audible. ABDOMEN: Soft. Slight epigastric discomfort. She has ileal conduit draining clear urine. No hematuria. EXTREMITIES: Left leg, she has granulating ulcers. ASSESSMENT AND PLAN 1. Chest pain, status post cardiac catheterization. No occlusion of recent stent; however, she has dilated cardiomyopathy with ejection fraction of 20%. 2. Metastatic ovarian carcinoma. 3. Carcinoma of bladder, status post cystectomy and ileal conduit. 4. Gastritis. 5. Constipation. 6. Chronic anemia. PLAN: I will discontinue Tessalon. I will give her magnesium citrate and the patient has been evaluated by TCU. Once the bed is available, she can be transferred to TCU today. Kimberley Hernadez MD
--- NOTE | 2017-08-19 20:43 | PN ---
DATE: 08/19/2017 FOLLOWUP NOTE SUBJECTIVE: She is comfortable in bed, in no acute distress, on oxygen by nasal cannula. She underwent cardiac catheterization yesterday. Coronary artery is not obstructive. She has cardiomyopathy with ejection fraction of 25%. Pancytopenia resolved. Still has epigastric pain , which has been chronic. Ambulating in the room. REVIEW OF SYSTEMS: As per HPI. Rest of 12-point review of systems reviewed and negative. MEDICATIONS: Tylenol 650 q. 6 hours p.r.n. aspirin 81 mg daily, atenolol 25 mg daily, Flonase daily, Lasix 40 mg daily, Xopenex p.r.n., lisinopril 2.5 mg daily, mag oxide b.i.d., morphine q. 4 hours p.r.n. for pain, tapentadol 150 q. 12 hours, vancomycin 1 g daily, Carafate q.i.d., MiraLax 17 g p.o. b.i.d., Protonix 40 mg daily. PHYSICAL EXAMINATION: GENERAL: Comfortable, in bed, in no acute distress. VITAL SIGNS: Temperature 98.7, heart rate 80 per minute, blood pressure 100/70, respiratory rate 19 per minute, oxygen saturation 100% on nasal cannula. HEENT: Pallor positive. NECK: No lymphadenopathy. CHEST: Air entry present and equal bilaterally. No added sounds. CARDIOVASCULAR: S1 and S2 normal. No murmur and no gallop. ABDOMEN: Soft and nontender. No hepatosplenomegaly. EXTREMITIES: No edema. Left leg swelling decreased. CENTRAL NERVOUS SYSTEM: Alert and oriented x3. No focal sensory or motor deficit. SKIN: No petechiae. No rash. PLAN: 1. Stage IV ovarian cancer. Continue chemotherapy as outpatient. 2. Pancytopenia, resolved. 3. Urosepsis, resolved. 4. Nonobstructive cardiomyopathy, . 5. Chronic epigastric pain, currently on Protonix and Carafate. Encourage out of bed ambulation, bedside PT. Thank you Dr. Hernadez for allowing us to participate in Ms. Head's care. Antonia Lake MD [facility] # [phone] JASON
[2017-08-20] MEDS: Meropenem 1g/NS 100mL IVPB 1 GM/100 ML PIGGYBACK IVPB SCH ×3 (06:00→21:13)
[2017-08-20] MEDS: Nystatin 100,000 Units/ml Oral Susp 5 ml UD PO SCH ×5 (06:01→21:13)
[2017-08-20] MEDS: Sucralfate 1 gm/10 ml Oral Susp UD PO SCH ×4 (06:02→21:13)
[2017-08-20] MEDS: Levalbuterol 0.63 MG/3 ML Inhal Soln UD IH SCH ×3 (07:07→19:55)
[2017-08-20] MEDS: Magnesium Oxide 400 mg Tab UD PO SCH ×2 (09:13→17:08)
[2017-08-20] MEDS: Fluticasone Nasal 50 mcg/Spray NS SCH (09:13)
[2017-08-20] MEDS: POLYETHYLENE GLYCOL 3350 17 GM/Dose PACKET PO SCH ×2 (09:14→17:08)
--- NOTE | 2017-08-20 10:49 | CP.PCM.PN ---
Subjective - Date & Time of Evaluation Date of Evaluation: 08/20/17 Time of Evaluation: 10:46 - Subjective Subjective: Podiatry Progress Note - Dr. Rosales 62 year old female patient seen and evaluated at bedside for left leg wounds. Patient is AAOx3 and in NAD. Patient appears to be resting comfortably in her bed. No complaints to left leg wounds. Dressings to leg wounds clean/dry/ intact. Offers no pedal complains today. Objective - Vital Signs/Intake and Output Vital Signs (last 24 hours): Temp Pulse Resp BP Pulse Ox 98.1 F 80 18 115/72 99 08/20/17 07:52 08/20/17 07:52 08/20/17 07:52 08/20/17 09:16 08/20/17 07:52 Intake and Output: 08/20/17 08/20/17 06:59 18:59 Intake Total 240 Output Total 975 Balance -735 - Medications Medications: Current Medications Acetaminophen (Tylenol 325mg Tab) 650 mg PO Q4 PRN PRN Reason: Fever >100.4 F Last Admin: 08/12/17 06:04 Dose: 650 mg Aspirin (Ecotrin) 81 mg PO DAILY [facility] Last Admin: 08/20/17 09:12 Dose: 81 mg Atenolol (Tenormin) 25 mg PO DAILY [facility] Last Admin: 08/20/17 09:16 Dose: Not Given Fluticasone Propionate (Flonase) 1 actuation NS DAILY [facility] Last Admin: 08/20/17 09:13 Dose: 1 spr Furosemide (Lasix) 40 mg IVP DAILY [facility] Last Admin: 08/20/17 09:13 Dose: Not Given Meropenem/Sodium Chloride (Meropenem 1g/Ns 100ml Ivpb) 1 gm in 100 mls @ 100 mls/hr IVPB Q8 [facility] PRN Reason: Protocol Levalbuterol HCl (Xopenex) 0.63 mg IH TIDRESP [facility] Last Admin: 08/20/17 07:07 Dose: 0.63 mg Lidocaine/Prilocaine (Emla) 0 gm TOP TID PRN PRN Reason: Pain, Mild (1-3) Last Admin: 08/14/17 09:35 Dose: 1 applic Lisinopril (Zestril) 2.5 mg PO DAILY [facility] Last Admin: 08/20/17 09:16 Dose: Not Given Magnesium Oxide (Mag-Ox) 400 mg PO BID [facility] Last Admin: 08/20/17 09:13 Dose: 400 mg Morphine Sulfate (Morphine) 4 mg IVP Q4H PRN PRN Reason: Pain, severe (8-10) Last Admin: 08/19/17 19:38 Dose: 4 mg Mupirocin (Bactroban Ointment) 1 gm TOP BID [facility] Last Admin: 08/20/17 09:12 Dose: 1 applic Tapentadol Hcl [ (Nucynta] 100 Mg) 100 mg PO TID [facility] Last Admin: 08/20/17 09:15 Dose: Not Given Tapentadol Hcl [ (Nucynta Er] 150 Mg) 150 mg PO Q12H [facility] Last Admin: 08/20/17 06:05 Dose: Not Given Glatiramer Acetate [ Copaxone] 40 Mg ( Home Med) 40 mg SQ MWF [facility] Last Admin: 08/18/17 14:53 Dose: 40 mg Nystatin (Nystatin Oral Susp) 5 ml PO 5XD [facility] Last Admin: 08/20/17 09:14 Dose: 5 ml Ondansetron HCl (Zofran Inj) 4 mg IVP Q6H PRN PRN Reason: Nausea/Vomiting Last Admin: 08/18/17 05:18 Dose: 4 mg Pantoprazole Sodium (Protonix Inj) 40 mg IVP DAILY [facility] Last Admin: 08/20/17 09:14 Dose: 40 mg Polyethylene Glycol (Miralax) 17 gm PO BID [facility] Last Admin: 08/20/17 09:14 Dose: 17 gm Sucralfate (Carafate Oral Susp) 1 gm PO 0630,1130,1630,2200 [facility] Last Admin: 08/20/17 06:02 Dose: 1 gm - Labs Labs: 08/16/17 06:15 08/16/17 06:15 PT 13.4 SECONDS (9.4-12.5) H 08/06/17 15:30 INR 1.17 (0.93-1.08) H 08/06/17 15:30 APTT 46.9 Seconds (25.1-36.5) H 08/06/17 15:30 - Constitutional Appears: Well, Non-toxic, No Acute Distress - Extremities Exam Additional comments: Dressing is clean, dry and intact - Neurological Exam Neurological Exam: Alert, Awake - Psychiatric Exam Psychiatric exam: Normal Affect, Normal Mood Assessment and Plan - Assessment and Plan (Free Text) Assessment: 62 year old female patient with Stage III LLE ulcerations x2, improving Plan: Patient seen and evaluated Discussed with attending Dr. Rosales Afebrile Left leg wound culture (08/08/17) reveals growth of staphylococcus aureus Bilateral venous duplex ordered r/o DVT - Negative for DVT b/l, superficial thrombophlebitis in proximal left saphenous vein Continue local wound care - Acticoat and bordered gauze to both wounds - will change dressing on Monday Wounds appear to be improving Continue GRAEME Hose Continue abx per ID - Vancomycin and Merrem (day 14)- complete 10-14 days of antibiotics Pain control - Morphine, Emla TD Patient may follow up at wound care center once discharged Podiatry will continue to follow while patient in house
[2017-08-20] MEDS: Morphine 4 mg/ml ISec IVP PRN ×2 (11:04→17:59)
--- NOTE | 2017-08-20 17:21 | CP.PCM.PN ---
Subjective - Date & Time of Evaluation Date of Evaluation: 08/20/17 Time of Evaluation: 11:00 - Subjective Subjective: 08/20/2017 FOLLOWUP NOTE SUBJECTIVE: She is comfortable in bed, in no acute distress, on oxygen by nasal cannula. She underwent cardiac catheterization yesterday. Coronary artery is not obstructive. She has cardiomyopathy with ejection fraction of 25%. Pancytopenia resolved. Still complaining of epigastric pain. Oral intake has improved. No cough , fever. REVIEW OF SYSTEMS: As per HPI. Rest of 12-point review of systems reviewed and negative. MEDICATIONS: Tylenol 650 q. 6 hours p.r.n. aspirin 81 mg daily, atenolol 25 mg daily, Flonase daily, Lasix 40 mg daily, Xopenex p.r.n., lisinopril 2.5 mg daily, mag oxide b.i.d., morphine q. 4 hours p.r.n. for pain, tapentadol 150 q. 12 hours, vancomycin 1 g daily, Carafate q.i.d., MiraLax 17 g p.o. b.i.d., Protonix 40 mg daily. PHYSICAL EXAMINATION: GENERAL: Comfortable, in bed, in no acute distress. VITAL SIGNS: reviewed. HEENT: Pallor positive. NECK: No lymphadenopathy. CHEST: Air entry present and equal bilaterally. No added sounds. CARDIOVASCULAR: S1 and S2 normal. No murmur and no gallop. ABDOMEN: Soft and nontender. No hepatosplenomegaly. EXTREMITIES: No edema. Left leg swelling decreased. CENTRAL NERVOUS SYSTEM: Alert and oriented x3. No focal sensory or motor deficit. SKIN: No petechiae. No rash. PLAN: 1. Stage IV ovarian cancer. Continue chemotherapy as outpatient. 2. Pancytopenia, resolved. 3. Urosepsis, resolved. 4. Nonobstructive cardiomyopathy, 5. Chronic epigastric pain, Plan : GC improved. continue carafate, protonix. 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 Lyrica can be tried for neuropathic pain. Blood counts improved. CV- stable. Chemo will be continued upon discharge from the hospital. Thank you Dr. Hernaedz for allowing us to participate in Ms. Banerjee's care. Antonia Lake MD Objective - Vital Signs/Intake and Output Vital Signs (last 24 hours): Temp Pulse Resp BP Pulse Ox 98.1 F 99 H 20 101/66 99 08/20/17 16:00 08/20/17 16:00 08/20/17 16:00 08/20/17 16:00 08/20/17 16:00 Intake and Output: 08/20/17 08/20/17 06:59 18:59 Intake Total 240 540 Output Total 975 400 Balance -735 140 - Medications Medications: Current Medications Acetaminophen (Tylenol 325mg Tab) 650 mg PO Q4 PRN PRN Reason: Fever >100.4 F Last Admin: 08/12/17 06:04 Dose: 650 mg Aspirin (Ecotrin) 81 mg PO DAILY [facility] Last Admin: 08/20/17 09:12 Dose: 81 mg Atenolol (Tenormin) 25 mg PO DAILY [facility] Last Admin: 08/20/17 09:16 Dose: Not Given Fluticasone Propionate (Flonase) 1 actuation NS DAILY [facility] Last Admin: 08/20/17 09:13 Dose: 1 spr Furosemide (Lasix) 40 mg IVP DAILY [facility] Last Admin: 08/20/17 09:13 Dose: Not Given Meropenem/Sodium Chloride (Meropenem 1g/Ns 100ml Ivpb) 1 gm in 100 mls @ 100 mls/hr IVPB Q8 [facility] PRN Reason: Protocol Last Admin: 08/20/17 13:08 Dose: 100 mls/hr Levalbuterol HCl (Xopenex) 0.63 mg IH TIDRESP [facility] Last Admin: 08/20/17 13:32 Dose: 0.63 mg Lidocaine/Prilocaine (Emla) 0 gm TOP TID PRN PRN Reason: Pain, Mild (1-3) Last Admin: 08/14/17 09:35 Dose: 1 applic Lisinopril (Zestril) 2.5 mg PO DAILY [facility] Last Admin: 08/20/17 09:16 Dose: Not Given Magnesium Oxide (Mag-Ox) 400 mg PO BID [facility] Last Admin: 08/20/17 09:13 Dose: 400 mg Morphine Sulfate (Morphine) 4 mg IVP Q4H PRN PRN Reason: Pain, severe (8-10) Last Admin: 08/20/17 11:04 Dose: 4 mg Mupirocin (Bactroban Ointment) 1 gm TOP BID [facility] Last Admin: 08/20/17 09:12 Dose: 1 applic Tapentadol Hcl [ (Nucynta] 100 Mg) 100 mg PO TID [facility] Last Admin: 08/20/17 13:09 Dose: Not Given Tapentadol Hcl [ (Nucynta Er] 150 Mg) 150 mg PO Q12H [facility] Last Admin: 08/20/17 06:05 Dose: Not Given Glatiramer Acetate [ Copaxone] 40 Mg ( Home Med) 40 mg SQ MWF [facility] Last Admin: 08/18/17 14:53 Dose: 40 mg Nystatin (Nystatin Oral Susp) 5 ml PO 5XD [facility] Last Admin: 08/20/17 13:09 Dose: 5 ml Ondansetron HCl (Zofran Inj) 4 mg IVP Q6H PRN PRN Reason: Nausea/Vomiting Last Admin: 08/18/17 05:18 Dose: 4 mg Pantoprazole Sodium (Protonix Inj) 40 mg IVP DAILY [facility] Last Admin: 08/20/17 09:14 Dose: 40 mg Polyethylene Glycol (Miralax) 17 gm PO BID [facility] Last Admin: 08/20/17 09:14 Dose: 17 gm Sucralfate (Carafate Oral Susp) 1 gm PO 0630,1130,1630,2200 [facility] Last Admin: 08/20/17 11:08 Dose: 1 gm - Labs Labs: 08/16/17 06:15 08/16/17 06:15 PT 13.4 SECONDS (9.4-12.5) H 08/06/17 15:30 INR 1.17 (0.93-1.08) H 08/06/17 15:30 APTT 46.9 Seconds (25.1-36.5) H 08/06/17 15:30
--- NOTE | 2017-08-20 22:06 | PN ---
DATE: 08/20/2017 SUBJECTIVE: This patient was seen and evaluated earlier. The patient finally had a large bowel movement today, did receive Relistor yesterday. PHYSICAL EXAMINATION: VITAL SIGNS: Temperature is 98.1, pulse 99, blood pressure is 101/66, respirations 20, O2 saturation is 99%. HEENT: Atraumatic, anicteric. NECK: Supple. HEART: S1 and S2 heard. LUNGS: Bilateral air entry present. ABDOMEN: Soft. Mild tenderness on deep palpation in the epigastric area and suprapubic area. EXTREMITIES: No edema. No cyanosis or clubbing. NEUROLOGIC: Alert, oriented. LABORATORY DATA: WBC count 26.7, hemoglobin 10.4, hematocrit 33.7, platelets 166, that was done on 08/16/2017. LFTs show some elevation. There is no recent labs done. IMPRESSION AND PLAN: This is a 62-year-old patient with a past medical history of metastatic ovarian cancer; cancer of the bladder, status post cystectomy and ileal conduit; urosepsis, status post pancytopenia, improved. Patient did have good bowel movements after Relistor, history of chronic constipation, on MiraLax, we will continue that. Abnormal liver function tests, history of gallstone, common bile duct normal. There is wall thickening, likely cause to be considered is also antibiotic induced. Abdominal pain, urinary tract infection. She is status post ileal conduit for total cystectomy. We would follow up the LFTs and also we will repeat the labs in the a.m. Thank you very much for allowing us to participate in the care of the patient. Demarco Russ MD
[2017-08-21] MEDS ORDERED: Morphine 4 mg/ml ISec IVP STA (01:03)
--- NOTE | 2017-08-21 01:05 | CP.PCM.PN ---
Subjective - Date & Time of Evaluation Date of Evaluation: 08/21/17 Time of Evaluation: 01:05 - Subjective Subjective: Patient complained of generalized pain. Has no other complaints. Medical record was reviewed. This 62 year old woman who was admitted with fever, generalized weakness, abdominal discomfort,epigastric pain, bodyaches, cough with blood specs, pelvic mass. PMH of metastatic ovarian cancer, bladder cancer, pancytopenia, multiple sclerosis. Objective - Vital Signs/Intake and Output Vital Signs (last 24 hours): Temp Pulse Resp BP Pulse Ox 98.1 F 99 H 20 101/66 99 08/20/17 16:00 08/20/17 16:00 08/20/17 16:00 08/20/17 16:00 08/20/17 16:00 Intake and Output: 08/20/17 08/21/17 18:59 06:59 Intake Total 540 Output Total 400 625 Balance 140 -625 - Medications Medications: Current Medications Acetaminophen (Tylenol 325mg Tab) 650 mg PO Q4 PRN PRN Reason: Fever >100.4 F Last Admin: 08/12/17 06:04 Dose: 650 mg Aspirin (Ecotrin) 81 mg PO DAILY REPLACED BY [facility] Last Admin: 08/20/17 09:12 Dose: 81 mg Atenolol (Tenormin) 25 mg PO DAILY REPL[facility]ED BY [facility] Last Admin: 08/20/17 09:16 Dose: Not Given Fluticasone Propionate (Flonase) 1 actuation NS DAILY REPLACED BY [facility] Last Admin: 08/20/17 09:13 Dose: 1 spr Furosemide (Lasix) 40 mg IVP DAILY [facility]PL[facility]ED BY [facility] Last Admin: 08/20/17 09:13 Dose: Not Given Meropenem/Sodium Chloride (Meropenem 1g/Ns 100ml Ivpb) 1 gm in 100 mls @ 100 mls/hr IVPB Q8 YUMI PRN Reason: Protocol Last Admin: 08/20/17 21:13 Dose: 100 mls/hr Levalbuterol HCl (Xopenex) 0.63 mg IH TIDRESP REPLACED BY [facility] Last Admin: 08/20/17 19:55 Dose: 0.63 mg Lidocaine/Prilocaine (Emla) 0 gm TOP TID PRN PRN Reason: Pain, Mild (1-3) Last Admin: 08/14/17 09:35 Dose: 1 applic Lisinopril (Zestril) 2.5 mg PO DAILY REPL[facility]ED BY [facility] Last Admin: 08/20/17 09:16 Dose: Not Given Magnesium Oxide (Mag-Ox) 400 mg PO BID REPLACED BY [facility] Last Admin: 08/20/17 17:08 Dose: 400 mg Mupirocin (Bactroban Ointment) 1 gm TOP BID REPLACED BY [facility] Last Admin: 08/20/17 17:08 Dose: 1 applic Tapentadol Hcl [ (Nucynta] 100 Mg) 100 mg PO TID REPLACED BY [facility] Last Admin: 08/20/17 17:09 Dose: Not Given Tapentadol Hcl [ (Nucynta Er] 150 Mg) 150 mg PO Q12H REPLACED BY [facility] Last Admin: 08/20/17 17:09 Dose: Not Given Glatiramer Acetate [ Copaxone] 40 Mg ( Home Med) 40 mg SQ MWF REPLACED BY [facility] Last Admin: 08/18/17 14:53 Dose: 40 mg Nystatin (Nystatin Oral Susp) 5 ml PO 5XD REPLACED BY [facility] Last Admin: 08/20/17 21:13 Dose: 5 ml Ondansetron HCl (Zofran Inj) 4 mg IVP Q6H PRN PRN Reason: Nausea/Vomiting Last Admin: 08/18/17 05:18 Dose: 4 mg Pantoprazole Sodium (Protonix Inj) 40 mg IVP DAILY REPLACED BY [facility] Last Admin: 08/20/17 09:14 Dose: 40 mg Polyethylene Glycol (Miralax) 17 gm PO BID REPLACED BY [facility] Last Admin: 08/20/17 17:08 Dose: 17 gm Sucralfate (Carafate Oral Susp) 1 gm PO 0630,1130,1630,2200 REPLACED BY [facility] Last Admin: 08/20/17 21:13 Dose: 1 gm - Labs Labs: 08/16/17 06:15 08/16/17 06:15 PT 13.4 SECONDS (9.4-12.5) H 08/06/17 15:30 INR 1.17 (0.93-1.08) H 08/06/17 15:30 APTT 46.9 Seconds (25.1-36.5) H 08/06/17 15:30 Assessment and Plan - Assessment and Plan (Free Text) Assessment: Generalized body aches. Metastatic ovarian cancer. Multiple sclerosis. Bladder cancer. Anemia. Plan: MSO4 4 mg IV x 1. Continue present management.
[2017-08-21] MEDS: Sucralfate 1 gm/10 ml Oral Susp UD PO SCH ×3 (05:32→17:18)
[2017-08-21] MEDS: Nystatin 100,000 Units/ml Oral Susp 5 ml UD PO SCH ×4 (05:32→17:18)
[2017-08-21] MEDS: Meropenem 1g/NS 100mL IVPB 1 GM/100 ML PIGGYBACK IVPB SCH ×2 (05:32→14:32)
--- NOTE | 2017-08-21 06:16 | CP.PCM.PN ---
Subjective - Date & Time of Evaluation Date of Evaluation: 08/21/17 Time of Evaluation: 06:15 - Subjective Subjective: Patient complained of generalized pain. Has no other complaints. Medical record was reviewed. Objective - Vital Signs/Intake and Output Vital Signs (last 24 hours): Temp Pulse Resp BP Pulse Ox 98.1 F 99 H 20 101/66 99 08/20/17 16:00 08/20/17 16:00 08/20/17 16:00 08/20/17 16:00 08/20/17 16:00 Intake and Output: 08/20/17 08/21/17 18:59 06:59 Intake Total 540 Output Total 400 625 Balance 140 -625 - Medications Medications: Current Medications Acetaminophen (Tylenol 325mg Tab) 650 mg PO Q4 PRN PRN Reason: Fever >100.4 F Last Admin: 08/12/17 06:04 Dose: 650 mg Aspirin (Ecotrin) 81 mg PO DAILY [facility] Last Admin: 08/20/17 09:12 Dose: 81 mg Atenolol (Tenormin) 25 mg PO DAILY [facility] Last Admin: 08/20/17 09:16 Dose: Not Given Fluticasone Propionate (Flonase) 1 actuation NS DAILY [facility] Last Admin: 08/20/17 09:13 Dose: 1 spr Furosemide (Lasix) 40 mg IVP DAILY [facility] Last Admin: 08/20/17 09:13 Dose: Not Given Meropenem/Sodium Chloride (Meropenem 1g/Ns 100ml Ivpb) 1 gm in 100 mls @ 100 mls/hr IVPB Q8 YUMI PRN Reason: Protocol Last Admin: 08/21/17 05:32 Dose: 100 mls/hr Levalbuterol HCl (Xopenex) 0.63 mg IH TIDRESP [facility] Last Admin: 08/20/17 19:55 Dose: 0.63 mg Lidocaine/Prilocaine (Emla) 0 gm TOP TID PRN PRN Reason: Pain, Mild (1-3) Last Admin: 08/14/17 09:35 Dose: 1 applic Lisinopril (Zestril) 2.5 mg PO DAILY [facility] Last Admin: 08/20/17 09:16 Dose: Not Given Magnesium Oxide (Mag-Ox) 400 mg PO BID [facility] Last Admin: 08/20/17 17:08 Dose: 400 mg Mupirocin (Bactroban Ointment) 1 gm TOP BID [facility] Last Admin: 08/20/17 17:08 Dose: 1 applic Tapentadol Hcl [ (Nucynta] 100 Mg) 100 mg PO TID [facility] Last Admin: 08/20/17 17:09 Dose: Not Given Tapentadol Hcl [ (Nucynta Er] 150 Mg) 150 mg PO Q12H [facility] Last Admin: 08/20/17 17:09 Dose: Not Given Glatiramer Acetate [ Copaxone] 40 Mg ( Home Med) 40 mg SQ MWF [facility] Last Admin: 08/18/17 14:53 Dose: 40 mg Nystatin (Nystatin Oral Susp) 5 ml PO 5XD [facility] Last Admin: 08/21/17 05:32 Dose: 5 ml Ondansetron HCl (Zofran Inj) 4 mg IVP Q6H PRN PRN Reason: Nausea/Vomiting Last Admin: 08/18/17 05:18 Dose: 4 mg Pantoprazole Sodium (Protonix Inj) 40 mg IVP DAILY [facility] Last Admin: 08/20/17 09:14 Dose: 40 mg Polyethylene Glycol (Miralax) 17 gm PO BID [facility] Last Admin: 08/20/17 17:08 Dose: 17 gm Sucralfate (Carafate Oral Susp) 1 gm PO 0630,1130,1630,2200 [facility] Last Admin: 08/21/17 05:32 Dose: 1 gm - Labs Labs: 08/16/17 06:15 08/16/17 06:15 PT 13.4 SECONDS (9.4-12.5) H 08/06/17 15:30 INR 1.17 (0.93-1.08) H 08/06/17 15:30 APTT 46.9 Seconds (25.1-36.5) H 08/06/17 15:30
[2017-08-21 06:29] LABS: BASO # 0.13 K/mm3 (0.0-2.0); BASO % 1.8 % (0.0-3.0); EOS # 0.1 (0.0-0.7); GRAN # 4.65 (1.4-6.5); HEMOGLOBIN 11.6 g/dL (12.0-16.0); LYMPH # 1.4 (1.2-3.4); LYMPH % 18.9 % (22.0-35.0); MEAN CELL VOLUME 93.2 fl (80.0-105.0); MEAN CORPUSCULAR HEMOGLOBIN 29.1 pg (25.0-35.0); MEAN CORPUSCULAR HGB CONC 31.3 g/dl (31.0-37.0); MEAN PLATELET VOLUME 9.7 fl (7.0-11.0); MONO % 14.3 % (1.0-6.0); PLATELET COUNT 413 10^3/uL (120.0-450.0); RBC 3.98 10^6/uL (3.5-6.1); RED CELL DISTRIBUTION WIDTH 17.5 % (11.5-14.5); WHITE BLOOD COUNT 7.3 10^3/ul (4.5-11.0)
[2017-08-21 07:04] LABS: ALB/GLOB RATIO 1.1 (1.1-1.8); ALBUMIN 3.7 g/dL (3.0-4.8); ALT/SGPT 78 U/L (7-56); AST/SGOT 47 U/L (14-36); BLOOD UREA NITROGEN 22 mg/dL (7-21); GFR AFRICAN-AMERICAN > 60; GFR NON-AFRICAN AMERICAN > 60
[2017-08-21] MEDS: Levalbuterol 0.63 MG/3 ML Inhal Soln UD IH SCH ×2 (07:24→13:07)
[2017-08-21 08:22] VITALS: O2SAT 100
[2017-08-21] MEDS: POLYETHYLENE GLYCOL 3350 17 GM/Dose PACKET PO SCH ×2 (10:05→17:18)
[2017-08-21] MEDS: Magnesium Oxide 400 mg Tab UD PO SCH ×2 (10:07→17:18)
[2017-08-21] MEDS: Fluticasone Nasal 50 mcg/Spray NS SCH (10:11)
[2017-08-21 10:13] LABS: ATYPICAL LYMPHOCYTE 4 % (0.0-0.0); LARGE PLATELETS PRESENT; NUCLEATED RED BLOOD CELL 3 %
[2017-08-21 10:16] LABS: LYMPHOCYTE 20 % (22.0-35.0); MONOCYTE 16 % (1.0-6.0); NEUTROPHIL 60 % (50.0-70.0)
[2017-08-21] MEDS ORDERED: Morphine 4 mg/ml ISec IVP PRN (10:50)
--- NOTE | 2017-08-21 11:50 | CP.PCM.PN ---
Subjective - Date & Time of Evaluation Date of Evaluation: 08/20/17 Time of Evaluation: 09:25 - Subjective Subjective: No fevers, not in distress. Objective - Vital Signs/Intake and Output Vital Signs (last 24 hours): Temp Pulse Resp BP Pulse Ox 98.1 F 80 18 97/52 L 99 08/20/17 07:52 08/20/17 07:52 08/20/17 07:52 08/20/17 07:52 08/20/17 07:52 Intake and Output: 08/20/17 08/20/17 06:59 18:59 Intake Total 240 Output Total 975 Balance -735 - Medications Medications: Current Medications Acetaminophen (Tylenol 325mg Tab) 650 mg PO Q4 PRN PRN Reason: Fever >100.4 F Last Admin: 08/12/17 06:04 Dose: 650 mg Aspirin (Ecotrin) 81 mg PO DAILY [facility] Last Admin: 08/19/17 09:28 Dose: 81 mg Atenolol (Tenormin) 25 mg PO DAILY [facility] Last Admin: 08/19/17 09:35 Dose: Not Given Fluticasone Propionate (Flonase) 1 actuation NS DAILY [facility] Last Admin: 08/19/17 09:30 Dose: Not Given Furosemide (Lasix) 40 mg IVP DAILY [facility] Last Admin: 08/19/17 09:31 Dose: Not Given Meropenem/Sodium Chloride (Meropenem 1g/Ns 100ml Ivpb) 1 gm in 100 mls @ 100 mls/hr IVPB Q8 YUMI PRN Reason: Protocol Levalbuterol HCl (Xopenex) 0.63 mg IH TIDRESP [facility] Last Admin: 08/20/17 07:07 Dose: 0.63 mg Lidocaine/Prilocaine (Emla) 0 gm TOP TID PRN PRN Reason: Pain, Mild (1-3) Last Admin: 08/14/17 09:35 Dose: 1 applic Lisinopril (Zestril) 2.5 mg PO DAILY [facility] Last Admin: 08/19/17 09:36 Dose: Not Given Magnesium Oxide (Mag-Ox) 400 mg PO BID [facility] Last Admin: 08/19/17 18:01 Dose: 400 mg Morphine Sulfate (Morphine) 4 mg IVP Q4H PRN PRN Reason: Pain, severe (8-10) Last Admin: 08/19/17 19:38 Dose: 4 mg Mupirocin (Bactroban Ointment) 1 gm TOP BID [facility] Last Admin: 08/19/17 18:00 Dose: 1 applic Tapentadol Hcl [ (Nucynta] 100 Mg) 100 mg PO TID [facility] Last Admin: 08/19/17 18:02 Dose: Not Given Tapentadol Hcl [ (Nucynta Er] 150 Mg) 150 mg PO Q12H [facility] Last Admin: 08/20/17 06:05 Dose: Not Given Glatiramer Acetate [ Copaxone] 40 Mg ( Home Med) 40 mg SQ MWF [facility] Last Admin: 08/18/17 14:53 Dose: 40 mg Nystatin (Nystatin Oral Susp) 5 ml PO 5XD [facility] Last Admin: 08/20/17 06:01 Dose: 5 ml Ondansetron HCl (Zofran Inj) 4 mg IVP Q6H PRN PRN Reason: Nausea/Vomiting Last Admin: 08/18/17 05:18 Dose: 4 mg Pantoprazole Sodium (Protonix Inj) 40 mg IVP DAILY [facility] Last Admin: 08/19/17 09:34 Dose: 40 mg Polyethylene Glycol (Miralax) 17 gm PO BID [facility] Last Admin: 08/19/17 18:01 Dose: 17 gm Sucralfate (Carafate Oral Susp) 1 gm PO 0630,1130,1630,2200 [facility] Last Admin: 08/20/17 06:02 Dose: 1 gm - Labs Labs: 08/16/17 06:15 08/16/17 06:15 PT 13.4 SECONDS (9.4-12.5) H 08/06/17 15:30 INR 1.17 (0.93-1.08) H 08/06/17 15:30 APTT 46.9 Seconds (25.1-36.5) H 08/06/17 15:30 - Constitutional Appears: Chronically Ill - Head Exam Head Exam: NORMAL INSPECTION - ENT Exam ENT Exam: Mucous Membranes Moist - Neck Exam Neck Exam: absent: Meningismus - Respiratory Exam Respiratory Exam: Decreased Breath Sounds - Cardiovascular Exam Cardiovascular Exam: +S1, +S2 - GI/Abdominal Exam GI & Abdominal Exam: Soft. absent: Tenderness Assessment and Plan - Assessment and Plan (Free Text) Plan: Assessment E. coli bacteremia S/P Febrile neutropenia right leg infection with MSSA R/O acute CVA history of bilateral inguinal area skin and skin structure infection associated with ovarian cancer metastasis S/P I and D history of chronic left leg ulcers, infected with Pseudomonas and Proteus mirabilis urinary bladder / urethral cancer ovarian cancer multiple sclerosis S/P pacemaker placement S/P right sided port-a-cath placement Plan S/P 14 days of Vancomycin; on Merrem - 1st negative blood cx is 08/12/2017 - complete 10-14 days from 1st negative blood cx as per Neuro - her acute neurologic condition may be exacerbation of her multiple sclerosis overall prognosis is poor
[2017-08-21] MEDS: GLATIRAMER ACETATE 40 MG SQ SCH (12:06)
[2017-08-21] MEDS: TAPENTADOL HCL 100 MG PO SCH ×2 (14:32→17:19)
[2017-08-21 17:07] VITALS: BP 121/87; PULSE 95; RESP 19; TEMP 97.8
--- NOTE | 2017-08-21 17:12 | CP.PCM.PN ---
Subjective - Date & Time of Evaluation Date of Evaluation: 08/21/17 Time of Evaluation: 17:09 - Subjective Subjective: Podiatry Progress Note - Dr. Rosales 62 year old female patient seen and evaluated at bedside for left leg wounds. Patient is AAOx3 and in NAD. present at bedside. No acute events overnight. No complaints to left leg wounds. Dressing to proximal leg wound appears wet with strikethrough noted; lower dressing clean/dry/intact. Patient will be discharged today; aware she is to follow up in the wound care center upon discharge. Denies N/V/F/D/C/SOB/calf pain. Objective - Vital Signs/Intake and Output Vital Signs (last 24 hours): Temp Pulse Resp BP Pulse Ox 97.8 F 95 H 19 121/87 100 08/21/17 16:00 08/21/17 16:00 08/21/17 16:00 08/21/17 16:00 08/21/17 16:00 Intake and Output: 08/21/17 08/21/17 06:59 18:59 Intake Total 240 540 Output Total 1250 275 Balance -1010 265 - Medications Medications: Current Medications Acetaminophen (Tylenol 325mg Tab) 650 mg PO Q4 PRN PRN Reason: Fever >100.4 F Last Admin: 08/12/17 06:04 Dose: 650 mg Aspirin (Ecotrin) 81 mg PO DAILY [facility] Last Admin: 08/21/17 10:06 Dose: 81 mg Atenolol (Tenormin) 25 mg PO DAILY [facility] Last Admin: 08/21/17 10:06 Dose: 25 mg Fluticasone Propionate (Flonase) 1 actuation NS DAILY [facility] Last Admin: 08/21/17 10:11 Dose: 1 spr Furosemide (Lasix) 40 mg IVP DAILY [facility] Last Admin: 08/21/17 10:18 Dose: Not Given Meropenem/Sodium Chloride (Meropenem 1g/Ns 100ml Ivpb) 1 gm in 100 mls @ 100 mls/hr IVPB Q8 [facility]UMI PRN Reason: Protocol Last Admin: 08/21/17 14:32 Dose: 100 mls/hr Levalbuterol HCl (Xopenex) 0.63 mg IH TIDRESP [facility] Last Admin: 08/21/17 13:07 Dose: Not Given Lidocaine/Prilocaine (Emla) 0 gm TOP TID PRN PRN Reason: Pain, Mild (1-3) Last Admin: 08/14/17 09:35 Dose: 1 applic Lisinopril (Zestril) 2.5 mg PO DAILY [facility] Last Admin: 08/21/17 10:06 Dose: 2.5 mg Magnesium Oxide (Mag-Ox) 400 mg PO BID [facility] Last Admin: 08/21/17 10:07 Dose: 400 mg Morphine Sulfate (Morphine) 4 mg IVP Q4H PRN PRN Reason: Pain, moderate (4-7) Last Admin: 08/21/17 11:19 Dose: 4 mg Mupirocin (Bactroban Ointment) 1 gm TOP BID [facility] Last Admin: 08/21/17 10:05 Dose: 1 applic Glatiramer Acetate [ Copaxone] 40 Mg ( Home Med) 40 mg SQ MWF [facility] Last Admin: 08/21/17 12:06 Dose: 40 mg Tapentadol Hcl [ Nucynta] 100 Mg ( Home Med) 100 mg PO TID [facility] Last Admin: 08/21/17 14:32 Dose: 100 mg Nystatin (Nystatin Oral Susp) 5 ml PO 5XD [facility] Last Admin: 08/21/17 10:06 Dose: 5 ml Ondansetron HCl (Zofran Inj) 4 mg IVP Q6H PRN PRN Reason: Nausea/Vomiting Last Admin: 08/21/17 13:12 Dose: 4 mg Pantoprazole Sodium (Protonix Ec Tab) 40 mg PO ACB [facility] Polyethylene Glycol (Miralax) 17 gm PO BID [facility] Last Admin: 08/21/17 10:05 Dose: 17 gm Sucralfate (Carafate Oral Susp) 1 gm PO 0630,1130,1630,2200 [facility] Last Admin: 08/21/17 12:06 Dose: 1 gm - Labs Labs: 08/21/17 05:30 08/21/17 05:30 PT 13.4 SECONDS (9.4-12.5) H 08/06/17 15:30 INR 1.17 (0.93-1.08) H 08/06/17 15:30 APTT 46.9 Seconds (25.1-36.5) H 08/06/17 15:30 - Constitutional Appears: Well, Non-toxic, No Acute Distress - Extremities Exam Additional comments: Bilateral LE exam: VASC: DP/PT pulses are palpable 1/4, Cap refill time: < 3 sec to all digits, Temp gradient: warm to cool from proximal to distal, no edema noted DERM: 2 wounds present on the distal medial leg and one on the distal anterior aspect. Proximal wound measures approx 0.5cm x 0.4cm x 0.1cm with minimal serosanguinous drainage; wound appears to be more superficial and epithelializing; hyperpigmentation noted periwound. Distal medial wound measures approx. 0.3cm x 0.3cm x 0.1 cm; wound appears to be more superficial and epithelializing; hyperpigmentation noted periwound. Distal anterior wound has epithelialized. All wound beds are noted to have a granular base and hyperpigmented rim, no tunneling, no undermining, no purulence, no malodor, no dejah-wound erythema. NEURO: Protective sensation grossly intact ORTHO: No pain on palpation of left leg wounds - Neurological Exam Neurological Exam: Alert, Awake, Oriented x3 - Psychiatric Exam Psychiatric exam: Normal Affect, Normal Mood Assessment and Plan - Assessment and Plan (Free Text) Assessment: 62 year old female patient with healing Stage III LLE ulcerations x2 Plan: Patient seen and evaluated with attending, Dr. Rosales Afebrile, WBC 7.3 Left leg wound culture (08/08/17) reveals growth of staphylococcus aureus Bilateral venous duplex ordered r/o DVT - Negative for DVT b/l, superficial thrombophlebitis in proximal left saphenous vein Continue local wound care - Acticoat and bordered gauze to both wounds -Advised patient to change dressing in 7 days as Acticoat may stay on for that duration of time w/o issues; if dressing gets wet or increased drainage is present, may change dressing sooner Continue GRAEME Hose Per ID, S/P 14 days of Vancomycin; on Merrem - 1st negative blood cx is 2017 - complete 10-14 days from 1st negative blood cx Pain control - Morphine, Emla TD Stable per podiatry standpoint Patient to follow up in wound care center next week 08/28/17 Podiatry will continue to follow while patient in house
[2017-08-22] MEDS ORDERED: Pantoprazole 40 mg EC Tab PO SCH (07:30)
--- NOTE | 2017-08-22 11:23 | DS ---
HISTORY OF PRESENT ILLNESS: The patient is a 62 years old, seen and examined, little upset about not getting her pain medication, otherwise doing little better. Complained of leg pain, complained of difficulty walking, had multiple fall at home, still has and epigastric discomfort. PHYSICAL EXAMINATION: VITAL SIGNS: She is afebrile, pulse 102, respirations 17, blood pressure 112/73. LUNGS: Bilateral good airflow. No rhonchi or crackles. HEART: S1 and S2 audible. ABDOMEN: Soft, slight epigastric discomfort. NEUROLOGICAL: The patient is awake and alert, able to communicate. EXTREMITIES: Bilateral legs, she has ulcer. Left kyle has multiple ulcers, they are healing under care of pilot plant technician's team. LABORATORY DATA: WBC is 7.3, hemoglobin 11.6, hematocrit 37.1, platelets 93. Chemistry: Sodium 140, potassium 4.5, chloride 100, CO2 of 32, BUN 22, creatinine 0.6, blood sugar of 84. AST 47, ALT 78. ASSESSMENT AND PLAN: 1. Dilated cardiomyopathy with ejection fraction of 20%. 2. Gastritis. 3. Metastatic ovarian cancer. 4. History of bladder cancer status post cystectomy and ileal conduit formation. PLAN: Currently the patient is on meropenem. She is on Carafate, aspirin, getting Lasix every day. She is on magnesium. We will continue her on morphine 4 mg q.6 p.r.n., Protonix. She has been started on KELBY inhibitors. The patient will be discharged to TCU. I will follow up the patient there. Kimberley Hernadez MD
== END 2017-08-21 19:23 | disposition home health service (06) | DRG 871 ==
LOC: ED 13:25 → ERH 17:47 → 3RNO 23:47 → 2RNO 08-18 12:48 → 3RNO 08-18 20:08
PROVIDERS: ADMIT Internal Medicine; ATTEND Internal Medicine
PROC: 30233N1 Transfusion of Nonautologous Red Blood Cells into Peripheral Vein, Percutaneous Approach (ICD-10-PCS; 2017-08-06)
PROC: 30233R1 Transfusion of Nonautologous Platelets into Peripheral Vein, Percutaneous Approach (ICD-10-PCS; 2017-08-07)
PROC: 3E0F7GC Introduction of Other Therapeutic Substance into Respiratory Tract, Via Natural or Artificial Opening (ICD-10-PCS; 2017-08-07)
PROC: 4A023N7 Measurement of Cardiac Sampling and Pressure, Left Heart, Percutaneous Approach (ICD-10-PCS; principal; 2017-08-18)
PROC: B2111ZZ Fluoroscopy of Multiple Coronary Arteries using Low Osmolar Contrast (ICD-10-PCS; 2017-08-18)
PROC: B2151ZZ Fluoroscopy of Left Heart using Low Osmolar Contrast (ICD-10-PCS; 2017-08-18)
DX: A41.51 Sepsis due to Escherichia coli [E. coli] (principal); J18.9 Pneumonia, unspecified organism; D70.3 Neutropenia due to infection; I42.0 Dilated cardiomyopathy; C56.9 Malignant neoplasm of unspecified ovary; R50.81 Fever presenting with conditions classified elsewhere; I25.110 Atherosclerotic heart disease of native coronary artery with unstable angina pectoris; L97.829 Non-pressure chronic ulcer of other part of left lower leg with unspecified severity; G35 Multiple sclerosis; D61.810 Antineoplastic chemotherapy induced pancytopenia; E83.52 Hypercalcemia; E83.42 Hypomagnesemia; E87.6 Hypokalemia; K59.00 Constipation, unspecified; K21.9 Gastro-esophageal reflux disease without esophagitis; E78.00 Pure hypercholesterolemia, unspecified; Z66 Do not resuscitate; C67.9 Malignant neoplasm of bladder, unspecified; R47.81 Slurred speech; K12.31 Oral mucositis (ulcerative) due to antineoplastic therapy; T45.1X5A Adverse effect of antineoplastic and immunosuppressive drugs, initial encounter; I80.3 Phlebitis and thrombophlebitis of lower extremities, unspecified; B95.61 Methicillin susceptible Staphylococcus aureus infection as the cause of diseases classified elsewhere; G62.9 Polyneuropathy, unspecified; G89.29 Other chronic pain; I10 Essential (primary) hypertension; R13.10 Dysphagia, unspecified; K59.09 Other constipation; J45.909 Unspecified asthma, uncomplicated; K29.70 Gastritis, unspecified, without bleeding; K80.20 Calculus of gallbladder without cholecystitis without obstruction; Y95 Nosocomial condition; Z93.3 Colostomy status; Z95.810 Presence of automatic (implantable) cardiac defibrillator; Z95.5 Presence of coronary angioplasty implant and graft

== ENCOUNTER 2017-09-02 10:34 | Inpatient (IN) | payer BC ==
[2017-09-02 10:34] VITALS: BMI 22.8
[~2017-09-02 10:34] MED LIST: Piperacillin/Tazobact 3.375 gm 100 ML IVPB SCH
[2017-09-02] MEDS ORDERED: Morphine 2 mg/ml ISec IVP STA (10:48)
--- NOTE | 2017-09-02 11:06 | ED PDOC ---
Arrival/HPI - General Chief Complaint: Shortness Of Breath Time Seen by Provider: 09/02/17 10:37 Historian: Patient - History of Present Illness Narrative History of Present Illness (Text): 09/02/17 11:04 Patient is a 62 yo female, past medical history of cancer on chemotherapy, also states she has hx of "blood clot" in left leg on eliquis, presents to the Emergency Department with history of shortness of breath that has progressively worsened over the past three days. She reports cough and increased shortness of breath with laying down and with any exertion. Also reports abdominal pain with nausea and vomiting, increased swelling to lower abdomen. Denies fevers or chills. Denies hematemesis, denies dark or bloody stools. 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 - HEENT Hx HEENT Disorder: No Other/Comment: wears glasses - Renal Hx Renal Disorder: Yes Other/Comment: bladder stones/ cancer - Endocrine/Metabolic Hx Endocrine Disorders: No - Hematological/Oncological Hx Cancer: Yes (Ovarian and bladder) - Integumentary Hx Dermatological Disorder: No - Musculoskeletal/Rheumatological Hx Musculoskeletal Disorders: Yes - Gastrointestinal Hx Gastrointestinal Disorders: Yes Hx Gastroesophageal Reflux: Yes Hx Vomiting: No - Genitourinary/Gynecological Hx Genitourinary Disorders: Yes Hx Bladder Cancer: Yes Hx Bladder Stone: Yes Hx Ovarian Cancer: Yes Other/Comment: + R side urostomy - Psychiatric Hx Emotional Abuse: No Hx Physical Abuse: No Hx Substance Use: No - Surgical History Other/Comment: Gtube reversal. R side urostomy. L side pacemaker/ defibrillator. Partial hysterectomy. Bladder cancer resection - Anesthesia Hx Anesthesia Reactions: No Hx Malignant Hyperthermia: No - Suicidal Assessment Feels Threatened In Home Enviroment: No Family/Social History Family/Social History: Unknown Family HX Smoking Status: Never Smoked Hx Alcohol Use: No Hx Substance Use: No Hx Substance Use Treatment: No Allergies/Home Meds Allergies/Adverse Reactions: Allergies No Known Allergies Allergy (Verified 09/02/17 10:37) Home Medications: Home Meds Medication Instructions Recorded Confirmed tiZANidine [Zanaflex] 4 mg PO HS 10/16/15 09/02/17 Cholecalciferol (Vitamin D3) 50,000 unit PO MON 10/19/15 09/02/17 [Vitamin D3] Alprazolam [Xanax] 0.25 mg PO TID PRN 09/02/17 09/02/17 Amoxicillin/Clavulanate [Augmentin 1 tab PO BID 09/02/17 09/02/17 875 MG-125 MG Tab] Apixaban [Eliquis] 2.5 mg PO BID 09/02/17 09/02/17 Atenolol [Tenormin] 50 mg PO DAILY 09/02/17 09/02/17 Dexamethasone [Decadron] 4 mg PO TID PRN 09/02/17 09/02/17 Doxycycline Hyclate [Doryx] 100 mg PO BID 09/02/17 09/02/17 Famotidine [Pepcid] 20 mg PO BID 09/02/17 09/02/17 Lidocaine/Prilocaine 2.5%-2.5% 30 gm TP BID 09/02/17 09/02/17 [Emla 2.5%-2.5%] Loperamide [Imodium] 2 mg PO TID PRN 09/02/17 09/02/17 Ondansetron [Zofran Tab] 8 mg PO TID PRN 09/02/17 09/02/17 Pantoprazole Sodium [Protonix] 40 mg PO DAILY 09/02/17 09/02/17 Pregabalin [Lyrica] 225 mg PO BID 09/02/17 09/02/17 Valacyclovir HCl [Valacyclovir] 500 mg PO DAILY 09/02/17 09/02/17 Review of Systems - Review of Systems Constitutional: Fatigue. absent: Fevers ENT: absent: Hearing Changes Respiratory: SOB, Cough, Wheezing Cardiovascular: Chest Pain, SALDIVAR, Orthopnea. absent: Palpitations, Edema, Calf Pain, Syncope Gastrointestinal: Abdominal Pain, Nausea, Vomiting, Appetite Changes. absent: Hematochezia Genitourinary Female: absent: Dysuria, Frequency Musculoskeletal: Myalgias Skin: absent: Rash Neurological: absent: Headache, Dizziness, Focal Weakness Hemo/Lymphatic: absent: Easy Bleeding Physical Exam - Physical Exam Narrative Physical Exam (Text): 09/02/17 11:15 Head: Atraumatic. Normocephalic. Eyes: PERRL. EOMI. Conjunctivae are not pale. ENT: Mucous membranes are moist and intact. Oropharynx is clear and symmetric. No drooling. Neck: Supple. Full ROM. Positivie jvd. No lymphadenopathy. Cardiovascular: Tachycardic, systolic murmur. Pulmonary/Chest: Tachypneic with rales. Port noted. Abdominal: Ostomy bag noted, patient with diffuse lower abdominal pain with firmness to abdominal wall and erythema, no pus or drainage. Pelvic: erythema extending to lower abdoemn Back: No CVA tenderness. Extremities: Bilateral nonpitting edema, ulcerations noted to left lower extremity. Skin: Skin is warm and dry. No petechiae. No purpura. Neurological: Alert, awake, and oriented to person, place, time, and situation. Normal speech. Motor and sensory exam intact. Psychiatric: Good eye contact. Normal interaction, affect, and behavior. Anxious. Vital Signs Reviewed: Yes Vital Signs Pulse Resp BP Pulse Ox 09/02/17 13:27 150 H 130/98 H 09/02/17 13:26 139/98 H 09/02/17 13:19 157 H 35 H 133/94 H 89 L 09/02/17 13:13 161 H 18 136/68 90 L 09/02/17 13:09 155 H 16 136/106 H 97 09/02/17 13:00 136/106 H 09/02/17 12:49 157 H 22 139/106 H 93 L 09/02/17 11:31 105/54 L 09/02/17 10:40 29 H 90 L Temperature: Afebrile Blood Pressure: Hypotensive Pulse: Tachycardic Respiratory Rate: Tachypneic Appearance: Positive for: Ill-Appearing Pain Distress: Severe Mental Status: Positive for: Alert and Oriented X 3 Medical Decision Making ED Course and Treatment: Patient is a 62 yo female with history of ca on chemotherapy, presents with shortness of breath for several days. On initial exam she is tachypneic, hypoxic, tachycardic. She reports abdominal pain with nausea and vomiting. Her saturations improved on supplemental oxygen. Patient had recent cardiac catheterization last month which was reviewed. She reportedly has history of cardiomyopathy and initial chest xray consistent with congestive heart failure. Currently afebrile. IV pain medication and zofran ordered. Plan to obtain ct chest/ct abdomen. Patient states that she has history of "blood clot" to leg and is currently taking Eliquis. Have placed page to her PMD Dr. Lake to review history. I did review recent chest ct last month. 09/02/17 11:45 I reviewed the patient's previous history for Chest CT 08/12/17and Cardiac Catheterization on 08/18/17. Report for Cardiac Catheterization procedure consisted of left heart cathterization with coronary arteriography and left ventriculogram, the right femoral artery was cannulated with a 6-Tamazight sheath. There were no complications with this procedure. Findings on catherterization reveal a left ventricle that was diffusely hypokinetic and dilated, estimated ejection fraction 25%. The patient's coronary anatomy reveal a right dominant circulation. The RCA was free of significant disease. The left main artery was unremarkable. The LAD revealed diffuse atherosclerosis with a patent stent in the distal portion. The diagonal vessels revealed intimal irregularities without critical lesions. The circumflex artery and obtuse marginal branches were free of significant disease. Angio-seal was used to close the left femoral artery site. Summarized, findings from procedure revealed a patent stent in the distal LAD with no other significant coronary lesions. The patients Chest CT on 08/02/17 revealed no evidence of pulmonary embolism. Moderate right and small left pleural effusions. AICD. Cholelithiasis. Patient remained tachycardic, ekg consistent with sinus tachycardia with left atrial enlargement, left bundle branch block at 10:42. Shortness of breath persistent as well as tachypnea. On nasal cannula saturations 95%, respiratory rate 18. CXR consistent with pulmonary edema. Lasix ordered. I discussed patient's case with Dr. Lake, who states that patient was recently started on Eliquis for a thrombophlebitis. CT chest and abdomen ordered given PE risk factors as well as persistent diffuse abdominal pain. On exam abdominal pain is generalized. Due to erythema noted in lower abdominal wall, patient initiated on iv antibiotics. Initial lactate on ABG unremarkable, although there is high risk of sepsis. IV fluids NOT given aggressively as patient noted to be in congestive heart failure. I placed a consult with her rubber boots and shoes repairer after reviewing chest xray, Dr. Felicia Nevarez is covering. I reviewed initial EKG and SOB and cxr findings. Patient upon return from ct scan is noted to be more labored with her breathing. Respiratory rate 26, oxygen saturations low 80s. Respiratory called and patient ventilated with bag valve mask, although she is extremely agitated, I feel secondary to increased respiratory distress. She is tachycardic on monitor, wide complex, regular. Rate is 150-160. She has strong pulse, systolic bp 130. She is progressively agitated and hypoxic saturations dropping to low 80s despite supplemental oxygen. As patient with worsening respiratory status associated with increased hypoxia, tachypnea and agitation, I reviewed with son and her code status, she is full code, and have reviewed indications for intubation which I reviewed with son and , who are agreeable. Patient prepared for rapid sequence intubation. Patient pre-oxygenated, and sedated with Etomidate 20 mg iv. Cotton Program Technician present in ED already for ICU consultation, patient was intubated by Dr. Charles Prasad in the ED. After intubation in ED, there is appropriate color change on detector, there are breath sounds noted bilaterally with ventilation, and post intubation cxr reveals appropriate placement of ET tube, although worsening pulmonary edema. Patient ordered propofol for sedation as she is agitated post intubation. Blood pressure sbp 130s. Proprofol titrated to sedation while in ED. Oxygen saturations 95% after intubation. Patient transferred to ICU. I reviewed CT abdomen/pelvis results reviewed with admitting PMD and Dr. Prasad, pile driver operator barge mounted. Patient's ct angio was not able to be completed due to her shortness of breath, this was communicated and reviewed with Dr. Prasad. Anticoagulation as per ICU team and cardiology who has evaluated patient in the ER, Dr. Nevarez. Dr. Lake updated with patient's condition. I reviewed patient's cxr findings and current differential diagnosis with patient's and son, who express understanding of critical nature of her symptoms. Suspect cardiomyopathy, chf, pulmonary edema, r/o mi, sepsis, cellulitis, ovarian cancer stage 4, abdominal pain. She requires icu monitoring and serial exams. I requested Dr. Nevarez, rubber boots and shoes repairer to evaluate patient in the ED. Patient was evaluated by Dr. Nevarez post intubation and tachcardia reviewed. EKGs reviewed by rubber boots and shoes repairer directly in the ED. As per Dr. Nevarez, Digoxin and Cardizem ordered. - Critical Care Critical Care Minutes: 60 minutes - Lab Interpretations Lab Results: 09/02/17 11:05 09/02/17 11:05 Lab Results 09/02/17 11:35: Influenza Typ A,B (EIA) Negative for flu a/b 09/02/17 11:05: Sodium 144, Chloride 108 H, Potassium 3.4 L, Carbon Dioxide 25, Anion Gap 15, BUN 23 H, Creatinine 0.9, Est GFR ( Amer) > 60, Est GFR ( Non-Af Amer) > 60, Random Glucose 80, Calcium 9.7, Magnesium 1.8, Total Bilirubin 0.5, AST 24, ALT 33, Alkaline Phosphatase 88, Lactate Dehydrogenase 763 H, Total Creatine Kinase 56, Troponin I 0.11 D, NT-Pro-B Natriuret Pep 70930 H, Total Protein 6.9, Albumin 3.8, Globulin 3.1, Albumin/Globulin Ratio 1.2 09/02/17 11:05: pO2 69 H, VBG pH 7.39, VBG pCO2 43.0, VBG HCO3 26.0, VBG Total CO2 27.3, VBG O2 Sat (Calc) 95.7 H, VBG Base Excess 0.8, VBG Potassium 3.5 L, Sodium 144.0, Chloride 110.0 H, Glucose 79, Lactate 2.8 H, FiO2 21.0, Venous Blood Potassium 3.5 L 09/02/17 11:05: PT 11.9, INR 1.03, APTT 25.0 L 09/02/17 11:05: WBC 11.4 H D, RBC 3.60, Hgb 10.9 L, Hct 33.6 L, MCV 93.3, MCH 30.3, MCHC 32.4, RDW 18.6 H, Plt Count 342, MPV 9.4, Gran % 85.8 H, Lymph % ( Auto) 11.6 L, [place] % (Auto) 1.8, Eos % (Auto) 0.4 L, Baso % (Auto) 0.4, Gran # 9.74 H, Lymph # (Auto) 1.3, [place] # (Auto) 0.2, Eos # (Auto) 0.1, Baso # (Auto) 0.05 09/02/17 11:00: pCO2 37, pO2 53.0 L, HCO3 26.9, ABG pH 7.47 H, ABG Total CO2 28.0, ABG O2 Saturation 93.3 L, ABG Base Excess 3.2 H, ABG Potassium 3.4 L, Sodium 142.0, Chloride 112.0 H, Glucose 88, Lactate 1.3, FiO2 28.0, Arterial Blood Potassium 3.4 L - RAD Interpretation Radiology Orders: 09/02/17 10:47 CHEST PORTABLE [RAD] Stat 09/02/17 11:09 ABD & PELVIS W/O PO OR IV CONT [CT] Stat 09/02/17 13:04 CHEST PORTABLE [RAD] Stat Counseling Director: Radiologist - EKG Interpretation Interpreted by ED Physician: Yes Type: 12 lead EKG Comparison: Com.w/previous EKG - Medication Orders Current Medication Orders: Albuterol/Ipratropium (Duoneb 3 Mg/0.5 Mg (3 Ml) Ud) 3 ml IH [id number] YUMI Last Admin: 09/03/17 03:00 Dose: 3 ml Digoxin (Lanoxin) 0.25 mg IVP 1400 YUMI Enoxaparin Sodium (Lovenox) 40 mg SC DAILY YUMI PRN Reason: Protocol Last Admin: 09/02/17 16:31 Dose: 40 mg Subcutaneous Administrations Document 09/02/17 16:31 JUR (Rec: 09/02/17 16:31 JUR ADMIN-PC) Injection Site MAR Injection Site Right Abdomen Charges for Administration # of Subcutaneous Administrations 1 Furosemide (Lasix) 40 mg IVP Q12 YUMI Last Admin: 09/02/17 22:46 Dose: 40 mg MAR Blood Pressure Document 09/02/17 22:46 QES (Rec: 09/02/17 22:47 QES ADMIN-PC) Blood Pressure Blood Pressure (100/60-150/90) 101/62 IVP Administration Document 09/02/17 22:46 QES (Rec: 09/02/17 22:47 QES ADMIN-PC) Charges for Administration # of IVP Administrations 1 Propofol (Diprivan) 1,000 mg in 100 mls @ 1.987 mls/hr IV .Q24H PRN; Protocol; 5 MCG/KG/MIN PRN Reason: TITRATE PER MD ORDER Last Titration: 09/03/17 01:45 Dose: 20 mcg/kg/min, 7.947 mls/hr [place] Agitation Sedation Document 09/03/17 01:45 QES (Rec: 09/03/17 04:33 QES [id number]) [place] Agitation Sedation Scale [place] Agitation Sedation Scale Score -2 Light Sedation: briefly awakens with eye contact to voice (<10 sec) Titration Intervention Document 09/03/17 01:45 QES (Rec: 09/03/17 04:33 QES [facility] [id number]) Titration Intake Titration Intake 10 Cumulative Intake 10 Cumulative Intake (Rx) 210 Waste Amount 0 Container Volume 90 Titration Dosing Titration Dose 20 IV Rate 7.947 Intake/Decrease Decreased Cumulative Dose 2100 Acetaminophen (Ofirmev) 1,000 mg in 100 mls @ 400 mls/hr IVPB Q6H PRN PRN Reason: Temperature Stop: 09/04/17 15:01 Last Admin: 09/02/17 23:35 Dose: 400 mls/hr eMAR Start Stop Document 09/02/17 23:35 QES (Rec: 09/02/17 23:35 QES [facility]) Intravenous Solution Start Date 09/02/17 Start Time 23:35 End Date 09/02/17 End time 23:50 Total Infusion Time 15 [facility] Pain Assessment Document 09/02/17 23:35 QES (Rec: 09/02/17 23:35 QES [facility]) Pain Reassessment Is this a pain reassessment? No Sleep Is patient sleeping during reassessment? Yes Re-Assess: [facility] Pain Assessment Document 09/03/17 00:35 QES (Rec: 09/03/17 01:02 QES [id number]) Pain Reassessment Is this a pain reassessment? No Sleep Is patient sleeping during reassessment? No Presence of Pain Presence of Pain No Milrinone Lactate/Dextrose (Primacor 20mg/100ml D5w) 100 mls @ 7.45 mls/hr IV .[id number] PRN; Protocol; 0.375 MCG/KG/MIN PRN Reason: TITRATE PER MD ORDER Last Admin: 09/03/17 05:14 Dose: 0.375 mcg/kg/min, 7.45 mls/hr eMAR Start Stop Document 09/03/17 05:14 QES (Rec: 09/03/17 05:14 QES ADMIN-PC) Intravenous Solution Start Date 09/03/17 Start Time 05:14 MAR Pulse and Blood Pressure Document 09/03/17 05:14 QES (Rec: 09/03/17 05:14 QES ADMIN-PC) Pulse Pulse Rate (60-90) 116 Blood Pressure Blood Pressure (100/60-150/90) 102/54 Titration Intervention Document 09/03/17 05:14 QES (Rec: 09/03/17 05:14 QES ADMIN-PC) Titration Intake Cumulative Intake (Rx) 100 Waste Amount 0 Container Volume 100 Titration Dosing Titration Dose 0.375 IV Rate 7.45 Intake/Decrease Started/Running Cumulative Dose 20 Fentanyl Citrate (Fentanyl Citrate/Sodium Chloride 1 Mg/100 Ml) 1,000 mcg in 100 mls @ 2 mls/hr IV .Q24H PRN; Protocol; 20 MCG/HR PRN Reason: TITRATE PER MD ORDER Last Admin: 09/03/17 05:33 Dose: 20 mcg/hr, 2 mls/hr eMAR Start Stop Document 09/03/17 05:33 QES (Rec: 09/03/17 05:34 QES ADMIN-PC) Intravenous Solution Start Date 09/03/17 Start Time 05:34 [place] Agitation Sedation Document 09/03/17 05:33 QES (Rec: 09/03/17 05:34 QES ADMIN-PC) [place] Agitation Sedation Scale [place] Agitation Sedation Scale Score -1 Drowsy Titration Intervention Document 09/03/17 05:33 QES (Rec: 09/03/17 05:34 QES ADMIN-PC) Titration Intake Waste Amount 0 Container Volume 100 Titration Dosing Titration Dose 20 IV Rate 2 Intake/Decrease Started Pantoprazole Sodium (Protonix Inj) 40 mg IVP DAILY YUMI Last Admin: 09/02/17 16:27 Dose: 40 mg IVP Administration Document 09/02/17 16:27 JUR (Rec: 09/02/17 16:27 JUR ADMIN-PC) Charges for Administration # of IVP Administrations 1 Discontinued Medications Albuterol/Ipratropium (Duoneb 3 Mg/0.5 Mg (3 Ml) Ud) 3 ml IH STAT STA Stop: 09/02/17 11:14 Last Admin: 09/02/17 11:21 Dose: 3 ml Digoxin (Lanoxin) 0.25 mg IVP STAT STA Stop: 09/02/17 13:18 Last Admin: 09/02/17 13:27 Dose: 0.25 mg MAR Apical Pulse Rate Document 09/02/17 13:27 [email or web address] (Rec: 09/02/17 13:[id number]) Apical Pulse Rate Apical Pulse Rate (60-90 beats/min) 150 IVP Administration Document 09/02/17 13:27 [email or web address] (Rec: 09/02/17 13:27 [id number] Charges for Administration # of IVP Administrations 1 Digoxin (Lanoxin) 0.25 mg IVP ONCE ONE Stop: 09/02/17 18:01 Last Admin: 09/02/17 18:40 Dose: 0.25 mg MAR Apical Pulse Rate Document 09/02/17 18:40 JUR (Rec: 09/02/17 18:40 JUR ADMIN-PC) Apical Pulse Rate Apical Pulse Rate (60-90 beats/min) 116 IVP Administration Document 09/02/17 18:40 JUR (Rec: 09/02/17 18:40 JUR ADMIN-PC) Charges for Administration # of IVP Administrations 1 Etomidate (Amidate) 20 mg IVP STAT STA Stop: 09/02/17 12:31 Last Admin: 09/02/17 12:45 Dose: 20 mg IVP Administration Document 09/02/17 12:45 [email or web address] (Rec: 09/02/17 16:[id number]) Charges for Administration # of IVP Administrations 1 Furosemide (Lasix) 20 mg IVP ONCE ONE Stop: 09/02/17 11:19 Last Admin: 09/02/17 13:00 Dose: 20 mg MAR Blood Pressure Document 09/02/17 13:00 [email or web address] (Rec: 09/02/17 13:[id number]) Blood Pressure Blood Pressure (100/60-150/90) 136/106 IVP Administration Document 09/02/17 13:00 [email or web address] (Rec: 09/02/17 13:[id number]) Charges for Administration # of IVP Administrations 1 Furosemide (Lasix) 60 mg IVP STAT STA Stop: 09/02/17 13:16 Last Admin: 09/02/17 13:26 Dose: 60 mg MAR Blood Pressure Document 03/10/18 13:26 [facility] (Rec: 09/02/17 13:[id number]) Blood Pressure Blood Pressure (100/60-150/90) 139/98 IVP Administration Document 09/02/17 13:26 [facility] (Rec: 09/02/17 13:[id number]) Charges for Administration # of IVP Administrations 1 Piperacillin Sod/Tazobactam Sod (Zosyn 4.5 Gm In Ns 100ml) 4.5 gm in 100 mls @ 200 mls/hr IVPB STAT STA PRN Reason: Protocol Stop: 09/02/17 12:18 Last Admin: 09/02/17 13:25 Dose: 200 mls/hr eMAR Start Stop Document 09/02/17 13:25 [email or web address] (Rec: 09/02/17 13:[id number]) Intravenous Solution Start Date 09/02/17 Start Time 13:25 End Date 09/02/17 Vancomycin HCl (Vancomycin 1gm) 1 gm in 250 mls @ 167 mls/hr IVPB STAT STA PRN Reason: Protocol Stop: 09/02/17 13:19 Last Admin: 09/02/17 15:05 Dose: 167 mls/hr eMAR Start Stop Document 09/02/17 15:05 JUR (Rec: 09/02/17 15:20 JUR ADMIN-PC) Intravenous Solution Start Date 09/02/17 Start Time 15:05 End Date 09/02/17 End time 16:35 Total Infusion Time 90 Potassium Chloride (Potassium Chloride 20 Meq/100 Ml) 20 meq in 100 mls @ 50 mls/hr IVPB Q2H YUMI Stop: 09/02/17 19:59 Last Admin: 09/02/17 18:40 Dose: 50 mls/hr eMAR Start Stop Document 09/02/17 18:40 JUR (Rec: 09/02/17 18:40 JUR ADMIN-PC) Intravenous Solution Start Date 09/02/17 Start Time 18:40 End Date 09/02/17 End time 20:40 Total Infusion Time 120 Piperacillin Sod/Tazobactam Sod (Zosyn 3.375 In Ns 100ml) 100 mls @ 200 mls/hr IVPB Q6 YUMI PRN Reason: Protocol Stop: 09/02/17 06:29 Morphine Sulfate (Morphine) 2 mg IVP STAT STA Stop: 09/02/17 10:49 Last Admin: 09/02/17 11:21 Dose: 2 mg MAR Pain Assessment Document 09/02/17 11:21 [facility] (Rec: 09/02/17 11:[id number]) Pain Reassessment Is this a pain reassessment? No Sleep Is patient sleeping during reassessment? No Presence of Pain Presence of Pain Yes Pain Scale Used Pain Scale Used Numeric Location Pain Location Body Site Chest Abdomen Description Description Constant Intensity of Pain at present 10 Pain Behavior Facial Grimacing Aggravating Factors Changing Position Alleviating Factors/Management Medication Techniques Alleviating Factors Medication IVP Administration Document 09/02/17 11:21 [facility] (Rec: 09/02/17 11:[id number]) Charges for Administration # of IVP Administrations 1 Ondansetron HCl (Zofran Inj) 4 mg IVP ONCE ONE Stop: 09/02/17 10:49 Last Admin: 09/02/17 11:21 Dose: 4 mg IVP Administration Document 09/02/17 11:21 [facility] (Rec: 09/02/17 11:[id number]) Charges for Administration # of IVP Administrations 1 Ondansetron HCl (Zofran Inj) 4 mg IVP ONCE ONE Stop: 09/02/17 11:16 Last Admin: 09/02/17 13:00 Dose: 4 mg IVP Administration Document 09/02/17 13:00 [facility] (Rec: 09/02/17 13:[id number]) Charges for Administration # of IVP Administrations 1 Pneumococcal Polyvalent Vaccine (Pneumovax 23 Vaccine) 0.5 ml IM .ONCE ONE Stop: 09/02/17 18:48 Propofol (Diprivan) 10 mg IVP ONCE ONE Stop: 09/02/17 12:54 Last Admin: 09/02/17 13:00 Dose: 10 mg IVP Administration Document 09/02/17 13:00 [facility] (Rec: 09/02/17 13:[id number]) Charges for Administration # of IVP Administrations 1 Verapamil HCl (Verapamil Inj) 2.5 mg IVP STAT STA Stop: 09/02/17 13:18 Last Admin: 09/02/17 13:27 Dose: 2.5 mg IVP Administration Document 09/02/17 13:27 [facility] (Rec: 09/02/17 13:27 [facility] [id number]) Charges for Administration # of IVP Administrations 1 MAR Pulse and Blood Pressure Document 09/02/17 13:27 [facility] (Rec: 09/02/17 13:27 [facility] [id number]) Pulse Pulse Rate (60-90) 150 Blood Pressure Blood Pressure (100/60-150/90) 130/98 - Scribe Statement The provider has reviewed the documentation as recorded by the Scribe Kanchan Herrera Provider Scribe Attestation: All medical record entries made by the Scribe were at my direction and personally dictated by me. I have reviewed the chart and agree that the record accurately reflects my personal performance of the history, physical exam, medical decision making, and the department course for this patient. I have also personally directed, reviewed, and agree with the discharge instructions and disposition. Disposition/Present on Arrival - Present on Arrival Any Indicators Present on Arrival: Yes History of DVT/PE: No History of Uncontrolled Diabetes: No Urinary Catheter: Yes History of Decub. Ulcer: Yes History Surgical Site Infection Following: None - Disposition Have Diagnosis and Disposition been Completed?: Yes Diagnosis: Ovarian cancer, Respiratory failure, Abdominal wall cellulitis, Sepsis, Abdominal pain, Vomiting, Congestive heart failure (CHF), Tachycardia Disposition: HOSPITALIZED Disposition Time: 12:00 Patient Plan: Admission, ICU Patient Problems: Current Active Problems Problem Status Onset Abdominal pain Acute Abdominal wall cellulitis Acute Congestive heart failure (CHF) Acute Ovarian cancer Acute Respiratory failure Acute Sepsis Acute Tachycardia Acute Vomiting Acute Condition: CRITICAL
[2017-09-02 11:12] LABS: ARTERIAL BLOOD GAS HCO3 26.9 mmol/L (21-28); ARTERIAL BLOOD GAS O2 SAT 93.3 % (95-98); ARTERIAL BLOOD GAS PCO2 37 mm/Hg (35-45); ARTERIAL BLOOD GAS PH 7.47 (7.35-7.45)
[2017-09-02] MEDS ORDERED: Albuterol-Ipratrop 3 mg / 0.5 (3 ml) UD IH STA (11:13)
[2017-09-02 11:14] LABS: BASO # 0.05 K/mm3 (0.0-2.0); BASO % 0.4 % (0.0-3.0); EOS # 0.1 (0.0-0.7); EOS % 0.4 % (1.5-5.0); GRAN # 9.74 (1.4-6.5); GRAN % 85.8 % (50.0-68.0); HEMOGLOBIN 10.9 g/dL (12.0-16.0); LYMPH # 1.3 (1.2-3.4); LYMPH % 11.6 % (22.0-35.0); MEAN CELL VOLUME 93.3 fl (80.0-105.0); MEAN CORPUSCULAR HEMOGLOBIN 30.3 pg (25.0-35.0); MEAN CORPUSCULAR HGB CONC 32.4 g/dl (31.0-37.0); MEAN PLATELET VOLUME 9.4 fl (7.0-11.0); MONO # 0.2 (0.1-0.6); MONO % 1.8 % (1.0-6.0); RBC 3.6 10^6/uL (3.5-6.1); RED CELL DISTRIBUTION WIDTH 18.6 % (11.5-14.5); WHITE BLOOD COUNT 11.4 10^3/ul (4.5-11.0)
[2017-09-02] MEDS ORDERED: Albuterol-Ipratrop 3 mg / 0.5 (3 ml) UD ONE (11:14)
[2017-09-02 11:21] LABS: VENOUS BLOOD GAS BASE EXCESS 0.8 mmol/L (0.0-2.0); VENOUS BLOOD GAS PO2 69 mm/Hg (30-55); VENOUS BLOOD PH 7.39 (7.32-7.43)
[2017-09-02 11:25] LABS: INR 1.03 (0.93-1.08); PROTHROMBIN TIME 11.9 SECONDS (9.4-12.5)
[2017-09-02 11:39] LABS: ALB/GLOB RATIO 1.2 (1.1-1.8); ALBUMIN 3.8 g/dL (3.0-4.8); ALT/SGPT 33 U/L (7-56); AST/SGOT 24 U/L (14-36); BLOOD UREA NITROGEN 23 mg/dL (7-21); CALCIUM 9.7 mg/dL (8.4-10.5); GFR AFRICAN-AMERICAN > 60; GFR NON-AFRICAN AMERICAN > 60
[2017-09-02 11:44] LABS: B-TYPE NATRIURETIC PEPTIDE 10400 pg/mL (0-450); TROPONIN I 0.11 ng/mL
[2017-09-02] MEDS ORDERED: Piperacill/Tazo 4.5gm in NS 4.5 GM/100 ML BAG IVPB STA (11:49)
[2017-09-02] MEDS ORDERED: Vancomycin 1gm in NS 250ml 1 GM/250 ML BAG IVPB STA (11:50)
--- NOTE | 2017-09-02 11:53 | RAD ---
HISTORY: Shortness of breath. COMPARISON: 08/12/2017 single-view chest. 08/12/2017 CT pulmonary angiogram FINDINGS: LUNGS: Pulmonary vascular congestion progressive compared to the prior study. PLEURA: No significant pleural effusion identified, no pneumothorax apparent. CARDIOVASCULAR: Cardiomegaly, presumed CHF/pulmonary edema. Venous access catheter in stable, satisfactory position. Position/ configuration of pacemaker OSSEOUS STRUCTURES: No significant abnormalities. VISUALIZED UPPER ABDOMEN: Normal. OTHER FINDINGS: None. IMPRESSION: Cardiomegaly/ CHF with pulmonary edema progressive compared to the prior study.
[2017-09-02] MEDS ORDERED: Iohexol 350 MG/100 ML VIAL ONE (11:55)
[2017-09-02] MEDS ORDERED: Etomidate 20 mg/10ml Inj IVP STA (12:30)
[2017-09-02] MEDS ORDERED: Etomidate 20 mg/10ml Inj IV ONE (12:33)
[2017-09-02] MEDS ORDERED: Succinylcholine 200 mg/10 ml Inj IV ONE (12:33)
[2017-09-02] MEDS ORDERED: Propofol 10 mg/ml 1,000 MG/100 ML VIAL ONE (12:50)
--- NOTE | 2017-09-02 12:51 | CT ---
PROCEDURE: CT Abdomen and Pelvis without intravenous contrast HISTORY: Lower abdominal pain. Shortness of breath. Relevant medical history: Ovarian cancer COMPARISON: September 02, 2017. Single-view chest 08/06/2017 CT abdomen and pelvis TECHNIQUE: Unenhanced study. Neither oral nor intravenous contrast administered. Sensitivity and specificity for acute inflammatory processes limited by the absence of oral and intravenous contrast. Radiation dose: Total exam DLP = 281.87 mGy-cm. This CT exam was performed using one or more of the following dose reduction techniques: Automated exposure control, adjustment of the mA and/or kV according to patient size, and/or use of iterative reconstruction technique. FINDINGS: LOWER THORAX: Pulmonary vascular congestion a finding confirmed on concurrent chest radiograph Trace pleural effusion. LIVER: Unremarkable. No gross lesion or ductal dilatation. GALLBLADDER AND BILE DUCTS: Cholelithiasis without CT evidence of acute cholecystitis. The gallbladder is distended. PANCREAS: Soft tissue fullness of region of the pancreatic head/ retroperitoneum. Differentiating non-opacified bowel from adenopathy from pelvic mass is not possible absence of oral/ intravenous contrast. SPLEEN: Unremarkable. ADRENALS: Unremarkable. No mass. KIDNEYS AND URETERS: Mild fullness in both collecting systems. VASCULATURE: Unremarkable. No aortic aneurysm. BOWEL: Constipation without fecal impaction or obstruction. APPENDIX: Unremarkable. Normal appendix. PERITONEUM: In fluid identified in the pelvis, low volume. LYMPH NODES: Unremarkable. No enlarged lymph nodes. BLADDER: Postoperative findings related to prior cystectomy and urinary diversion with right lower quadrant ileostomy. REPRODUCTIVE: Unremarkable. BONES: No acute fracture. OTHER FINDINGS: Decrease in size of complex pelvic mass now measuring 6.7 x 0.5 cm. Previously at the same level the mass measured 8.8 x 10.4 cm. Thickening of the scan at the level of the pelvis likely post radiation change. Small subcutaneous nodule to the left of the midline 9.6 mm suspicious for tumor. IMPRESSION: 1. Decrease in size of pelvic mass with measurements provided above. 2. Low volume pelvic ascites. 3. Upper abdominal retroperitoneal adenopathy difficult to differentiate from adjacent unenhanced bowel and pancreas. 4. Cholelithiasis without CT evidence of acute cholecystitis.
[2017-09-02] MEDS ORDERED: Propofol 10 mg/ml Inj (20 ML) IVP ONE (12:53)
[2017-09-02] MEDS: Propofol 10 mg/ml 1,000 MG/100 ML VIAL IV PRN ×2 (13:00→16:23)
[2017-09-02] MEDS ORDERED: Digoxin 500 mcg/2ml (0.5 mg/2ml) Inj IVP STA (13:17)
[2017-09-02] MEDS ORDERED: Digoxin 500 mcg/2ml (0.5 mg/2ml) Inj ONE (13:18)
--- NOTE | 2017-09-02 14:16 | RAD ---
HISTORY: post intubation COMPARISON: September 02, 2017. Time of the most recent examination: 11:11 FINDINGS: LUNGS: Worsening pulmonary edema. PLEURA: No significant pleural effusion identified, no pneumothorax apparent. CARDIOVASCULAR: Cardiomegaly/pulmonary edema. Venous access catheter in stable, satisfactory position. OSSEOUS STRUCTURES: No significant abnormalities. VISUALIZED UPPER ABDOMEN: Normal. OTHER FINDINGS: Satisfactory position of recently placed endotracheal tube. IMPRESSION: Satisfactory position of endotracheal tube. Worsening pulmonary edema.
[2017-09-02 14:23] LABS: VENOUS BLOOD GAS BASE EXCESS -3.9 mmol/L (0.0-2.0); VENOUS BLOOD GAS PO2 37 mm/Hg (30-55); VENOUS BLOOD PH 7.25 (7.32-7.43)
--- NOTE | 2017-09-02 15:04 | RAD ---
HISTORY: reposition ET ntube COMPARISON: September 02, 2017. 13:13. FINDINGS: LUNGS: Stable pulmonary edema PLEURA: No significant pleural effusion identified, no pneumothorax apparent. CARDIOVASCULAR: No significant interval change compared to the prior examination(s). OSSEOUS STRUCTURES: No significant abnormalities. VISUALIZED UPPER ABDOMEN: Normal. OTHER FINDINGS: No perceptible change in position of the endotracheal tube. IMPRESSION: No significant interval change compared to the prior examination(s).
[2017-09-02 15:11] LABS: ARTERIAL BLOOD GAS HEMOGLOBIN 11.9 g/dL (11.7-17.4); ARTERIAL BLOOD GAS O2 CAPACITY 16.3 mL/dl (16-24); ARTERIAL BLOOD GAS O2 SAT 92.2 % (95-98); ARTERIAL BLOOD GAS PCO2 38 mm/Hg (35-45); ARTERIAL BLOOD GAS PH 7.35 (7.35-7.45); ARTERIAL BLOOD GAS TCO2 22.2 mmol.L (22-28)
[2017-09-02 16:12] LABS: BASO # 0.06 K/mm3 (0.0-2.0); BASO % 0.4 % (0.0-3.0); EOS % 0.1 % (1.5-5.0); GRAN # 12.97 (1.4-6.5); GRAN % 93.2 % (50.0-68.0); HEMOGLOBIN 11.5 g/dL (12.0-16.0); LYMPH # 0.7 (1.2-3.4); MEAN CELL VOLUME 93.5 fl (80.0-105.0); MEAN CORPUSCULAR HEMOGLOBIN 30.1 pg (25.0-35.0); MEAN CORPUSCULAR HGB CONC 32.2 g/dl (31.0-37.0); MEAN PLATELET VOLUME 9.1 fl (7.0-11.0); MONO # 0.2 (0.1-0.6); MONO % 1.3 % (1.0-6.0); PLATELET COUNT 302 10^3/uL (120.0-450.0); RBC 3.82 10^6/uL (3.5-6.1); RED CELL DISTRIBUTION WIDTH 18.4 % (11.5-14.5); WHITE BLOOD COUNT 13.9 10^3/ul (4.5-11.0)
[2017-09-02 16:30] LABS: ALB/GLOB RATIO 1.2 (1.1-1.8); ALBUMIN 3.8 g/dL (3.0-4.8); CALCIUM 8.8 mg/dL (8.4-10.5)
[2017-09-02] MEDS: Enoxaparin 40 mg Syringe SC SCH (16:31)
[2017-09-02] MEDS: Milrinone 20mg/100ml D5W 100 ML IV PRN (16:45)
--- NOTE | 2017-09-02 16:45 | CARD ---
APPROVED REPORT EKG Measurement Heart [id number] <Conclusion> Atrial sensed, ventricular paced rhythm vs Pacemaker mediated tachycardia Abnormal ECG
[2017-09-02 17:01] LABS: EOSINOPHIL 1 % (0.0-3.0); LYMPHOCYTE 5 % (22.0-35.0); MONOCYTE 1 % (1.0-6.0); NEUTROPHIL 93 % (50.0-70.0)
[2017-09-02 17:17] LABS: TROPONIN I 0.45 ng/mL
[2017-09-02] MEDS ORDERED: Digoxin 500 mcg/2ml (0.5 mg/2ml) Inj IVP ONE (18:00)
[2017-09-02] MEDS ORDERED: Influenza Vaccine 60 mcg/0.5 mL SYR (4YR UP) IM ONE (18:47)
[2017-09-02] MEDS ORDERED: Pneumococcal 23-Valent Vaccine IM ONE (18:47)
[2017-09-02] MEDS: Albuterol-Ipratrop 3 mg / 0.5 (3 ml) UD IH SCH (19:23)
--- NOTE | 2017-09-02 23:46 | CP.PCM.HP ---
History of Present Illness - History of Present Illness History of Present Illness: Ms. Head 62-year-old female with stage IV ovarian cancer and bladder cancer. She was evaluated in clinic two days ago and noticed to have recurrent perineal cellulitis. She was advised admission to the hospital which he declined. She was prescribed oral antibiotics Augmentin and doxycycline. I received a call today from Ms. Head that she is very short of breath. I advised her to call [phone] and come to ER right away. She was intubated and ER for respiratory distress. Chest x-ray showed vascular congestion consistent with congestive cardiac failure. She has a long-standing history of non-obstructive cardiomyopathy with low ejection fraction of 15%. During the last hospitalization recently and she had cardiac catheterization done that showed ejection fraction to be 25%. Coronaries were nonobstructive. She received gemcitabine and Avastin one time on August 28, 2017. She tolerated chemo very well and was asymptomatic when seen in clinic two days ago. She also has history of multiple sclerosis and chronic pain. Currently intubated sedated. Blood pressure maintained without pressor support. Present on Admission - Present on Admission Any Indicators Present on Admission: Yes History of DVT/PE: No History of Uncontrolled Diabetes: No Urinary Catheter: No Decubitus Ulcer Present: No - Notes: Notes:: perineal cellulitis Review of Systems - Constitutional Constitutional: As Per HPI - EENT Eyes: absent: As Per HPI, Blind Spots, Blurred Vision, Change in Vision, Decreased Night Vision, Diplopia, Discharge, Dry Eye, Exophthalmos, Floaters, Irritation, Itchy Eyes, Loss of Peripheral Vision, Pain, Photophobia, Requires Corrective Lenses, Sees Flashes, Spots in Vision, Tunnel Vision, Other Visual Disturbances, Loss of Vision, Other Ears: absent: As Per HPI, Decreased Hearing, Ear Discharge, Ear Pain, Tinnitus, Abnormal Hearing, Disequilibrium, Dizziness, Other Nose/Mouth/Throat: absent: As Per HPI, Epistaxis, Nasal Congestion, Nasal Discharge, Nasal Obstruction, Nasal Trauma, Nose Pain, Post Nasal Drip, Sinus Pain, Sinus Pressure, Bleeding Gums, Change in Voice, Dental Pain, Dry Mouth, Dysphagia, Halitosis, Hoarsness, Lip Swelling, Mouth Lesions, Mouth Pain, Odynophagia, Sore Throat, Throat Swelling, Tongue Swelling, Facial Pain, Neck Pain, Neck Mass, Other - Breasts Breasts: absent: As Per HPI, Change in Shape, Mass, Pain, Nipple Discharge, Nipple Inversion, Skin Changes, Swelling, Other - Cardiovascular Cardiovascular: As Per HPI - Respiratory Respiratory: As Per HPI - Gastrointestinal Gastrointestinal: absent: As Per HPI, Abdominal Pain, Belching, Bloating, Change in Bowel Habits, Change in Stool Character, Coffee Ground Emesis, Constipation, Cramping, Diarrhea, Dyspepsia, Dysphagia, Early Satiety, Excessive Flatus, Fecal Incontinence, Heartburn, Hematemesis, Hematochezia, Loose Stools, Melena, Nausea, Odynophagia, Temesmus, Vomiting, Other - Genitourinary Genitourinary: As Per HPI - Menstruation Menstruation: absent: As Per HPI, Amenorrhea, Amenorrhea/ Control, Currently Menstual, Cycle <21 Days, Cycle >35 Days, Cycle Variable, Menses 1-7 Days, Menses >/= 8 Days, Menses Variable, Cycle > 4 Weeks Between, No Menses for 6 Months, Heavy Menses, Light Menses, Normal Menses, Spotting Between Cycles , S/P Hysterectomy, Menopausal, Post Menopausal, Premenarche, Abnormal Vaginal Bleeding, Dysmenorrhea, Other - Integumentary Integumentary: As Per HPI - Neurological Neurological: As Per HPI - Psychiatric Psychiatric: Anxiety, Depression - Endocrine Endocrine: absent: As Per HPI, Change in Body Appearance, Change in Libido, Cold Intolorance, Deepening of Voice, Excessive Sweating, Fatigue, Flushing, Heat Intolorance, Increase in Ring/Shoe/Hat Size, Palpitations, Polydipsia, Polyphagia, Polyuria, Other - Hematologic/Lymphatic Hematologic: As Per HPI 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 - HEENT Hx HEENT Problems: No Other/Comment: wears glasses - RENAL Hx Chronic Kidney Disease: Yes Other/Comment: bladder stones/ cancer - ENDOCRINE/METABOLIC Hx Endocrine Disorders: No - HEMATOLOGICAL/ONCOLOGICAL Hx Cancer: Yes (Ovarian and bladder) - INTEGUMENTARY Hx Dermatological Problems: No - MUSCULOSKELETAL/RHEUMATOLOGICAL Hx Musculoskeletal Disorders: Yes - GASTROINTESTINAL Hx Gastrointestinal Disorders: Yes Hx Gastroesophageal Reflux: Yes Hx Vomiting: No - GENITOURINARY/GYNECOLOGICAL Hx Genitourinary Disorders: Yes Hx Bladder Cancer: Yes Hx Bladder Stone: Yes Hx Ovarian Cancer: Yes Other/Comment: + R side urostomy - PSYCHIATRIC Hx Emotional Abuse: No Hx Physical Abuse: No Hx Substance Use: No - SURGICAL HISTORY Other/Comment: Gtube reversal. R side urostomy. L side pacemaker/ defibrillator. Partial hysterectomy. Bladder cancer resection - ANESTHESIA Hx Anesthesia Reactions: No Hx Malignant Hyperthermia: No Meds Allergies/Adverse Reactions: Allergies Allergy/AdvReac Type Severity Reaction Status Date / Time No Known Allergies Allergy Verified 09/02/17 10:37 Physical Exam - Constitutional Appears: Chronically Ill - Head Exam Head Exam: ATRAUMATIC, NORMAL INSPECTION, NORMOCEPHALIC - Eye Exam Eye Exam: Normal appearance - ENT Exam ENT Exam: Mucous Membranes Moist - Neck Exam Neck exam: Positive for: Normal Inspection - Respiratory Exam Respiratory Exam: Respiratory Distress - Cardiovascular Exam Cardiovascular Exam: Tachycardia - GI/Abdominal Exam GI & Abdominal Exam: Normal Bowel Sounds, Soft - Extremities Exam Extremities exam: Positive for: normal inspection - Back Exam Back exam: NORMAL INSPECTION - Skin Skin Exam: Normal Color, Warm Results - Vital Signs Recent Vital Signs: Last Vital Signs Temp 101.3 F H 09/02/17 14:25 Pulse 116 H 09/02/17 18:30 Resp 20 09/02/17 18:23 BP 101/62 09/02/17 22:46 Pulse Ox 100 09/02/17 18:30 - Labs Result Diagrams: 09/02/17 16:01 09/02/17 16:01 Labs: Laboratory Results - last 24 hr 09/02/17 09/02/17 09/02/17 14:18 15:00 16:01 WBC 13.9 H D RBC 3.82 Hgb 11.5 L Hct 35.7 L MCV 93.5 MCH 30.1 MCHC 32.2 RDW 18.4 H Plt Count 302 MPV 9.1 Gran % 93.2 H Lymph % (Auto) 5.0 L Gladwin % (Auto) 1.3 Eos % (Auto) 0.1 L Baso % (Auto) 0.4 Gran # 12.97 H Lymph # (Auto) 0.7 L Gladwin # (Auto) 0.2 Eos # (Auto) 0.0 Baso # (Auto) 0.06 Neutrophils % (Manual) 93 H Lymphocytes % (Manual) 5 L Monocytes % (Manual) 1 Eosinophils % (Manual) 1 pCO2 38 pO2 37 57.0 L HCO3 21.0 ABG pH 7.35 ABG Total CO2 22.2 ABG O2 Saturation 92.2 L ABG O2 Content 15.0 ABG Base Excess -4.2 L ABG Hemoglobin 11.9 ABG Carboxyhemoglobin 1.9 H POC ABG HHb (Measured) 7.6 H ABG Methemoglobin 0.7 ABG O2 Capacity 16.3 VBG pH 7.25 L VBG pCO2 55.0 VBG HCO3 24.1 VBG Total CO2 25.8 VBG O2 Sat (Calc) 71.5 H VBG Base Excess -3.9 L VBG Potassium 3.4 L Hgb O2 Saturation 89.8 L Sodium 141.0 Chloride 105.0 Glucose 241 H Lactate 4.1 H* FiO2 21.0 100.0 Potassium Carbon Dioxide Anion Gap BUN Creatinine Est GFR ( Amer) Est GFR (Non-Af Amer) Random Glucose Calcium Total Bilirubin AST ALT Alkaline Phosphatase Troponin I Total Protein Albumin Globulin Albumin/Globulin Ratio Venous Blood Potassium 3.4 L 09/02/17 16:01 WBC RBC Hgb Hct MCV MCH MCHC RDW Plt Count MPV Gran % Lymph % (Auto) Gladwin % (Auto) Eos % (Auto) Baso % (Auto) Gran # Lymph # (Auto) Gladwin # (Auto) Eos # (Auto) Baso # (Auto) Neutrophils % (Manual) Lymphocytes % (Manual) Monocytes % (Manual) Eosinophils % (Manual) pCO2 pO2 HCO3 ABG pH ABG Total CO2 ABG O2 Saturation ABG O2 Content ABG Base Excess ABG Hemoglobin ABG Carboxyhemoglobin POC ABG HHb (Measured) ABG Methemoglobin ABG O2 Capacity VBG pH VBG pCO2 VBG HCO3 VBG Total CO2 VBG O2 Sat (Calc) VBG Base Excess VBG Potassium Hgb O2 Saturation Sodium 146 Chloride 108 H Glucose Lactate FiO2 Potassium 3.0 L Carbon Dioxide 26 Anion Gap 15 BUN 25 H Creatinine 1.2 Est GFR ( Amer) 55 Est GFR (Non-Af Amer) 46 Random Glucose 85 Calcium 8.8 Total Bilirubin 0.5 AST 68 H D ALT 46 Alkaline Phosphatase 85 Troponin I 0.45 H* D Total Protein 7.0 Albumin 3.8 Globulin 3.2 Albumin/Globulin Ratio 1.2 Venous Blood Potassium Assessment & Plan - Assessment and Plan (Free Text) Assessment: 1. CHF; acute on chronic. Recently cardiac cath done- showed low ejection fraction of 25%. She might have lung infection, influenza serology to be sent. Currently sedated intubated. BP maintained without pressor support. 2. Perineal cellulitis; on IV antibiotics. ID consultation Dr. Bajwa requested. Blood culture urine culture sent to rule out sepsis. 3. Stage IV ovarian cancer. Status second cycle , day one, of chemotherapy with gemcitabine Avastin. CT abdomen done today showed marked improvement in pelvic mass, it was 10 cm x 6 cm before currently 8 cm x .5 cm. 4. Renal; stable BUN creatinine. 5. Hematology; blood counts stable. Will continue to monitor blood counts closely. I had a family meeting 2 sisters, one brother and . Discussed the current condition of Ms. Head with them. Sister was of the opinion that chemotherapy is making her sick. She herself is a breast cancer survivor and had chemotherapy in with significant side effects. I discussed with her that she had low ejection fraction for past few years. Received gemcitabine at reduced doses, gemcitabine does not affect the heart, she did not have fluid overload after chemotherapy as she remain asymptomatic for a week after chemo. I discussed with with them that chemo has shown to prolong overall survival and improves quality of life stage IV ovarian cancer. Median survival is 9 to 12 months. Ms. Head has multiple pre-existing comorbid conditions that are affecting her quality of life. They have a lot of questions, all were answered to their satisfaction. I provided my contact information to the family if they have any further questions they should feel free to contact me. discussed with Dr. Prasad.
[2017-09-03] MEDS: Propofol 10 mg/ml 1,000 MG/100 ML VIAL IV PRN (00:35)
[2017-09-03] MEDS: Albuterol-Ipratrop 3 mg / 0.5 (3 ml) UD IH SCH ×4 (03:00→19:18)
--- NOTE | 2017-09-03 03:37 | CON ---
DATE: 09/02/2017 [facility] CONSULTATION REQUESTING PHYSICIAN: Antonia Lake MD CHIEF COMPLAINT: The patient presented with shortness of breath and abdominal pain. HISTORY OF PRESENT ILLNESS: Ms. Head is a 62-year-old female with a history of ovarian carcinoma, stage IV, who is presently being treated with chemotherapy. The patient has also a history of left lower extremity DVT and is on Eliquis. She presents with shortness of breath progressively worsening over the last couple of days with cough, increased congestion and increased shortness of breath on exertion. She does have complaints of abdominal pain which is intermittent but chronic, and nauseousness and vomiting as well as some lower extremity ulcerations on the left leg and some mild swelling. No fever or chills. No vomiting of any blood. Denies any dark stools. The patient also has a urostomy. PAST MEDICAL HISTORY: Significant for cardiomyopathy with an ejection fraction of 25%, congestive heart failure, coronary artery disease with stents, and recently she had some abdominal wall cellulitis felt to be sepsis. ALLERGIES: THE PATIENT HAS NO KNOWN ALLERGIES. CURRENT MEDICATIONS: Can be evaluated as per the nurse's intake form. SOCIAL HISTORY: No history of smoking, ETOH abuse or drug abuse. FAMILY HISTORY: Noncontributory. REVIEW OF SYSTEMS: CONSTITUTIONAL: The patient has had some fatigue. HEENT: Within normal limits. RESPIRATORY: The patient presented with shortness of breath, cough, wheeze, and in the ER, was felt to be in respiratory distress and required intubation, and is now on the ventilator. CARDIOVASCULAR: The patient has had some chest pain, dyspnea on exertion, orthopnea. GASTROINTESTINAL: Abdominal pain, nauseousness and vomiting, loss of appetite. GENITOURINARY: All negative. MUSCULOSKELETAL: Did have some muscle pain. SKIN: All negative. NEUROPSYCHIATRIC: All negative. HEMATOLOGIC: All negative. ENDOCRINE: All negative. IMMUNOLOGIC: Negative. PHYSICAL EXAMINATION: VITAL SIGNS: Note that the patient is afebrile. She has heart rate of 139 and BP is 102/59, respiratory rate is 33 on the ventilator and her O2 saturation is 92% with 100% FiO2. HEENT: Head is atraumatic, normocephalic. Eyes reactive to light. Ears, nose and throat seemed to be within normal limits. NECK: Supple. No JVD. No thyroid enlargement or lymph nodes. HEART: Regular rate and rhythm. Normal S1 and S2, but tachycardic. LUNGS: Reveal mild rhonchi bilaterally. ABDOMEN: Soft. Decreased bowel sounds. There is a urostomy bag in place. GENITALIA AND RECTAL: Deferred. MUSCULOSKELETAL: No joint deformities. EXTREMITIES: Reveal several quarter size ulcerations in the left lower extremity, trace lower extremity edema bilaterally. NEUROLOGIC: The patient is sedated on the ventilator. LABORATORY DATA: As far as her laboratories are concerned, her white count is 11.4, hemoglobin is 10.9 and hematocrit 33.6 with platelets of 342,000. Her sodium is 144, potassium 3.4, chloride 108, CO2 of 25 with BUN of 23, creatinine of 0.9 and glucose of 80. Arterial blood gas on the ventilator is pending. Chest x-ray reveals ET tube is in correct position and no obvious masses. A chest x-ray does show diffuse vascular congestion, pulmonary edema. This is an unofficial reading of the most recent chest x-ray. BNP is 10,400, and troponins are mildly elevated at 0.11. As far as the patient's abdominal CT scan, it reveals decreased size in the pelvic mass with low volume pelvic ascites and retroperitoneal lymphadenopathy. IMPRESSION: This patient has pulmonary edema/congestive heart failure with increased lactate, so there is possible sepsis. She has respiratory failure requiring ventilator support and has a history of stage IV ovarian carcinoma. The patient has bladder carcinoma as well as urostomy, and has recently had a lower abdominal cellulitis. She has a DVT in the left lower extremity as well as ulcerations of that extremity, and history of coronary artery disease with stent placement. She has cardiomyopathy and a history of congestive heart failure. The patient has intermittent chronic abdominal pain. PLAN: The patient is on the ventilator, and we will decrease the FiO2 as tolerated. We will follow her chest x-ray and arterial blood gas, and we will give aggressive pulmonary toilet. We will continue with propofol for sedation. The patient is on DuoNeb. She was given digoxin for tachycardia and she is being given Lasix for appropriate diuresis. The patient has been given a vancomycin as well as Zosyn, and ID as well as cardiac and Hematology-Oncology consults have been called. The patient also was given Verapamil for her tachycardia. We will follow closely and treat aggressively along with the other consultants and the primary care doctor. Charles Prasad MD [facility] # [id number]
[2017-09-03] MEDS: Milrinone 20mg/100ml D5W 100 ML IV PRN ×2 (05:14→19:45)
[2017-09-03] MEDS ORDERED: Fentanyl 1000mcg/100ml NS 1,000 MCG/100 ML BAG IV PRN (05:17)
[2017-09-03 05:31] LABS: ARTERIAL BLOOD GAS HCO3 25.8 mmol/L (21-28); ARTERIAL BLOOD GAS HEMOGLOBIN 10.9 g/dL (11.7-17.4); ARTERIAL BLOOD GAS O2 CAPACITY 15.7 mL/dl (16-24); ARTERIAL BLOOD GAS O2 CONTENT 15.6 ML/dl (15-23); ARTERIAL BLOOD GAS O2 SAT 99.4 % (95-98); ARTERIAL BLOOD GAS PCO2 38 mm/Hg (35-45); ARTERIAL BLOOD GAS PH 7.44 (7.35-7.45)
--- NOTE | 2017-09-03 06:24 | CON ---
DATE: 09/02/2017 The patient in ICU 128, bed 7. This consult being done behalf of Dr. Granado whom I am covering. REASON FOR CONSULTATION: Respiratory failure, pulmonary edema, coronary artery disease, history of stent insertion, history of cardiomyopathy, history of ovarian CA. HISTORY OF PRESENT ILLNESS: This 62-year-old female who is known to have ovarian CA and getting chemotherapy. Also the patient's cardiac cath 08/18/2017 showed the patient's stent in LAD which was put in about a year ago and her LV ejection fraction was 25% consistent with cardiomyopathy. The patient came to the hospital with a history that she started having cough and shortness of breath since last three days which has gradually got worse. There is no history of chest pain or palpitations. The patient came to the emergency room under respiratory distress, had to be intubated. The patient also reported abdominal pain with nausea and vomiting and increasing swelling of the lower abdomen. PAST HISTORY: Positive for coronary artery disease, history of stent insertion about a year ago in LAD. Also a history of cardiomyopathy, cardiac catheterization on 08/18/2017 that showed patent stents in LAD and ejection fraction of 25%. The patient also has CA of the ovary with possible metastasis to lymph nodes, getting chemotherapy. The patient has history of multiple sclerosis, neuropathy in hands and feet, history of bladder stones, history of bladder cancer. The patient has history partial hysterectomy and bladder cancer resection, had AICD inserted in the left upper chest, right sided urostomy. PERSONAL HISTORY: No history of smoking, no history of drinking. HOME MEDICATIONS: The patient was taking atenolol 50 mg daily, Decadron 4 mg daily, Doryx 100 mg b.i.d., Protonix 40 mg, Lyrica 225 p.o. b.i.d., valacyclovir 500 mg p.o. daily, Augmentin 875 mg/125 mg one tablet b.i.d., Xanax 0.25 p.o. t.i.d. p.r.n. REVIEW OF SYSTEMS: All the systems were reviewed; positive mentioned in the history, otherwise negative. PHYSICAL EXAMINATION: VITAL SIGNS: Blood pressure is 102/59, respirations about 33, pulse about . In the emergency room, the heart rate went up to 157 to 160. Fever 101.3. Blood pressure 111/73. HEENT: Head is normocephalic. Eyes: Pupils normal. Conjunctivae slightly pale. NECK: JVP slightly elevated. LUNGS: Bilateral wheezing and rales. CARDIOVASCULAR: S1 and S2. ABDOMEN: Soft. Bowel sounds normal. EXTREMITIES: No clubbing. No cyanosis. LABORATORY DATA: WBC is 11.4, hemoglobin 10.9, hematocrit 33.6, platelets 342. Sodium 144, potassium 3.4, BUN 23, creatinine is 0.9. . AST and ALT normal. Troponin 0.11. Total protein . Chest x-ray consistent with CHF. EKG showed sinus tachycardia with left bundle branch block. Repeat EKG reveals a question of supraventricular tachycardia. DIAGNOSES: Acute respiratory distress, pulmonary edema, possible respiratory tract infection, pneumonia, respiratory failure, coronary artery disease, history of stent insertion in LAD, cardiomyopathy, history of ovarian carcinoma with possible metastasis to the lymph nodes status chemotherapy, anemia, hypokalemia, neuropathy. PLAN: We will digitalize the patient. I give Lasix 80 mg IV in the emergency room; I gave one digoxin 0.25 IV stat; I also gave 2.5 IV stat and starting Lasix 40 IV b.i.d. We will digitalize the patient. The patient intubated and we will repeat chest x-ray in the morning and follow. We will repeat troponin. The patient's prothrombin time 11.9, INR 1.03, PTT 25.0. We will give the potassium therapy. We will repeat labs in the morning. We will repeat chest x-ray in the morning. We will follow. Geno Nevarez MD
[2017-09-03 06:55] LABS: TROPONIN I 0.59 ng/mL
[2017-09-03 08:06] LABS: ALB/GLOB RATIO 1.1 (1.1-1.8); ALBUMIN 3.2 g/dL (3.0-4.8); CALCIUM 8.6 mg/dL (8.4-10.5)
--- NOTE | 2017-09-03 09:08 | PN ---
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 The patient is on FiO2 of 100% and O2 saturation is 100% as well. This morning, she is slightly hypotensive with a systolic of 85. We will reevaluate to see if the patient needs pressors or a bolus of IV fluids. She has been aggressively diuresed initially presenting with pulmonary edema. PHYSICAL EXAMINATION VITAL SIGNS: Note that her temperature is 99, pulse is 116, respirations are 20 and BP is at this time, 85/50, O2 saturation is 100%. SKIN: Warm and dry. HEENT: Head, atraumatic and normocephalic. Eyes, reactive to light. Ears, nose and throat seemed to be within normal limits. NECK: Supple. No JVD, thyroid enlargement or lymph nodes. HEART: Has a regular rate and rhythm. Normal S1, S2, but tachycardic. LUNGS: Reveal rare rhonchi at the bases. ABDOMEN: Soft. Decreased bowel sounds. Has uroscopy bag in place. GENITALIA: Deferred. RECTAL: Deferred. MUSCULOSKELETAL: No joint deformities. EXTREMITIES: Reveal no significant edema. NEUROLOGIC: The patient is sedated on a ventilator. DATA: As far as her laboratories are concerned, her CBC and CMP are pending, but note that her troponins are continuing to increase. Today's troponin is 0.59. IMPRESSION: As far as my impression, this patient has respiratory failure requiring ventilator support. She presented with, I should say pulmonary edema/congestive heart failure and possible sepsis. The patient has history of stage IV ovarian carcinoma as well as bladder cancer as well. She has urostomy. The patient has a history of DVT in the left lower extremity and ulcerations of that extremity as well. She has a history of coronary artery disease with stents placed and on this admission, increased troponins, most likely myocardial infarction. The patient has cardiomyopathy with low ejection fraction and intermittent chronic abdominal pain. At this time, she does have mild hypotension. As far as our plan, we will give her fluid challenge to evaluate the blood pressure; if it does not respond, we will start pressors. The patient is getting ventilator support with a FiO2 of 100%. We will try to decrease the FiO2 as the patient tolerates. She is on fentanyl as well as propofol for sedation. The patient is getting bronchodilators of DuoNeb as well. She is on IV Tylenol for temperature and the patient is getting digoxin as well as Lasix. She is on Lovenox and has been started on milrinone as per Cardiology. The patient is getting Protonix as well. She is being seen by Infectious Disease. She has been started on vancomycin and Zosyn and we will continue to follow closely and treat aggressively along with the other consultants and the primary care doctor. Charles Prasad MD
[2017-09-03] MEDS: Enoxaparin 40 mg Syringe SC SCH (09:23)
[2017-09-03] MEDS: Meropenem IV 1 gm in NS 50 ML IVPB SCH ×2 (11:53→21:32)
--- NOTE | 2017-09-03 12:23 | RAD ---
HISTORY: f/u COMPARISON: September 02, 2017. FINDINGS: LUNGS: Improving pulmonary edema. PLEURA: No significant pleural effusion identified, no pneumothorax apparent. CARDIOVASCULAR: No significant interval change compared to the prior examination(s). OSSEOUS STRUCTURES: No significant abnormalities. VISUALIZED UPPER ABDOMEN: Normal. OTHER FINDINGS: Satisfactory position of endotracheal tube. IMPRESSION: Interval improvement in pulmonary edema.
[2017-09-03] MEDS ORDERED: Digoxin 500 mcg/2ml (0.5 mg/2ml) Inj IVP STA (12:28)
[2017-09-03] MEDS ORDERED: Digoxin 500 mcg/2ml (0.5 mg/2ml) Inj IVP SCH (14:00)
[2017-09-03] MEDS: Digoxin 500 mcg/2ml (0.5 mg/2ml) Inj IVP SCH (14:32)
--- NOTE | 2017-09-03 15:25 | PN ---
DATE: 09/03/2017 This progress note is being dictated on behalf of Dr. Granado whom I am covering. REASON FOR CONSULTATION AND FOLLOWUP: Respiratory failure, pulmonary edema, severe coronary artery disease, history of stent insertion, history of cardiomyopathy, history of ovarian CA. SUBJECTIVE: The patient is still on respirator because of respiratory distress. PHYSICAL EXAMINATION VITAL SIGNS: Blood pressure is 84/48, respirations 22, pulse is about 110 per minute. The patient is afebrile. HEENT: Head is normocephalic. Eyes: Pupils normal. Conjunctivae is slightly pale. NECK: JVP low. Carotids are equal. THORAX: AP diameter normal. HEART: S1 and S2. LUNGS: The patient has less rhonchi and rales as compared to yesterday. ABDOMEN: Soft. Bowel sounds normal. EXTREMITIES: No clubbing, no cyanosis. LABORATORY DATA: WBC 13.9, hemoglobin 11.5, hematocrit 35.7, platelets 302,000. Sodium 143, potassium 3.2, BUN 34, creatinine 1.4. AST 184, ALT 133, troponin first one is 0.11, second one 0.45, third one 0.59, total protein and albumin normal. The patient's last 24-hour intake and output, intake was 565, output 2700. Yesterday, EKG showed left bundle-branch block, today complexes on the monitor seem to be narrowed. We will repeat the EKG today. Cardiac cath was done on 08/18/2017, which showed LV ejection fraction of 25%, stent in the LAD was patent. DIAGNOSES: Acute respiratory failure, pulmonary edema; possible sepsis; respiratory tract infection; coronary artery disease; history of stent insertion in left anterior descending artery; cardiomyopathy with left ventricular ejection fraction of 25%. Recent cath, patent stent and ejection fraction of 25%; history of ovarian carcinoma with possible metastases to the lymph nodes, getting chemotherapy; anemia; hypokalemia; neuropathy. PLAN: Plan is we will give potassium 20 mEq through IV K-rider, will be total 40 mEq IV potassium. We will continue Lasix 40 mg IV b.i.d. The patient also on milrinone. Also, the patient being digitalized. The patient on antibiotics. We will repeat labs in the morning. We will follow today's chest x-ray. Today's digoxin level was 0.6, the patient getting 0.25 mg IV digoxin. BUN and creatinine slightly elevated. Starting tomorrow, we will change the digoxin to 0.125 mg IV daily. Beta-shar as not given because the patient's blood pressure is on the low side. Slight troponin elevation, possibility of non-ST elevation myocardial infarction, but recent cath was normal, it may be related to the sepsis and respiratory distress and pulmonary edema pattern. The patient on Lovenox 40 mg subcutaneously daily. From tomorrow, Dr. Granado will follow the patient. Geno Nevarez MD
[2017-09-03] MEDS: Morphine 2 mg/ml ISec IVP PRN ×2 (18:12→23:39)
[2017-09-03] MEDS ORDERED: Benzocaine/Menthol (Cepacol) Lozenge MT PRN (21:25)
[2017-09-03] MEDS: POLYETHYLENE GLYCOL 3350 17 GM/Dose PACKET PO SCH (22:18)
--- NOTE | 2017-09-03 23:01 | CARD ---
APPROVED REPORT EKG Measurement Heart [id number] <Conclusion> Electronic ventricular pacemaker Underlying rhythm is Sinus tachycardia with Left bundle branch block Abnormal EKG
--- NOTE | 2017-09-03 23:13 | CARD ---
APPROVED REPORT EKG Measurement Heart [id number] <Conclusion> Sinus tachycardia Left atrial enlargement Left bundle branch block Abnormal ECG
--- NOTE | 2017-09-03 23:26 | CON ---
DATE: 09/03/2017 LOCATION: ICU 128, bed 7. CHIEF COMPLAINT: Respiratory failure x1 day duration. 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 The patient had a fever of 101 in emergency room and Infectious Disease consultation requested. REVIEW OF SYSTEMS: Reveals the patient is intubated on a ventilator in the ICU. The patient did have a fever in the emergency room. The patient is awake. She is responsive. There has been no abdominal pain reported. No diarrhea. 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 PAST SURGICAL HISTORY: Significant for a Port-A-Cath placement, pacemaker, oophorectomy, partial hysterectomy, cardiac cath, and lymph node biopsy in May 2017. ALLERGIES: THE PATIENT HAS NO KNOWN ALLERGIES. HOME MEDICATIONS: Are noted and reviewed. PHYSICAL EXAMINATION: GENERAL: The patient is in bed, in no acute distress, intubated, on a ventilator. VITAL SIGNS: Temperature of 99, T-max is 101.3, respiratory - on the vent, heart rate of 120, blood pressure is 83/50. HEENT: Examination of HEENT is unremarkable. ET tube is in place. NECK: Supple. LUNGS: Have decreased breath sounds. HEART: Normal S1, S2. ABDOMEN: Soft, nontender. No rebound, guarding or masses. LABORATORY DATA: Reveals a white count of 13,900, hemoglobin of 11, the patient has 93% granulocytosis. Coagulation is noted. Chemistries reveals the troponin is elevated. BNP is 10,000. Creatinine is up to 1.4; yesterday it was 0.9. LFTs are elevated. Toxicology is noted. Digoxin level 0.6. Influenza is negative. Microbiology is pending. The patient's chest x-ray shows the patient had congestion. The patient had a CT scan of the abdomen and pelvis, which showed decrease in size of the pelvic mass with measurements provided, and low volume pelvic ascites, and upper abdominal retroperitoneal adenopathy, cholelithiasis without evidence of acute cholecystitis. In the emergency room, the patient received a dose of Zosyn and dose of vancomycin. Cultures were done. ASSESSMENT AND PLAN: This is a 62-year-old female with bladder cancer, urethral cancer, ovarian cancer, cardiomyopathy, congestive heart failure, coronary artery disease, and multiple sclerosis; admitted with respiratory failure with severe sepsis with respiratory failure intubated on a ventilator with acute kidney injury. Creatinine is changed from 0.9 to 1.4. We will check on the blood cultures, urine cultures, MRSA screen and sputum cultures. We will start the patient on doxycycline and meropenem. We will order a stat procalcitonin. Must rule out any underlying healthcare-associated pneumonia in face of congestive heart failure versus bacteremia. We will make further recommendations upon availability of initial results. Case discussed with Dr. Lake at length. Tyler Anglin MD
[2017-09-04] MEDS: Albuterol-Ipratrop 3 mg / 0.5 (3 ml) UD IH SCH ×4 (02:12→19:25)
[2017-09-04] MEDS: Morphine 2 mg/ml ISec IVP PRN ×4 (05:10→22:55)
[2017-09-04] MEDS: Milrinone 20mg/100ml D5W 100 ML IV PRN (05:44)
[2017-09-04 07:06] LABS: ALB/GLOB RATIO 1.1 (1.1-1.8); ALBUMIN 3.3 g/dL (3.0-4.8); ALT/SGPT 156 U/L (7-56); AST/SGOT 106 U/L (14-36); BLOOD UREA NITROGEN 18 mg/dL (7-21); GFR AFRICAN-AMERICAN > 60; GFR NON-AFRICAN AMERICAN 56
[2017-09-04] MEDS ORDERED: Morphine 2 mg/ml ISec IVP STA ×2 (07:50→15:20)
[2017-09-04 08:57] LABS: BASO # 0.02 K/mm3 (0.0-2.0); BASO % 0.1 % (0.0-3.0); EOS # 0.1 (0.0-0.7); EOS % 0.3 % (1.5-5.0); GRAN # 14.49 (1.4-6.5); LYMPH # 0.6 (1.2-3.4); LYMPH % 3.6 % (22.0-35.0); MEAN CELL VOLUME 92.1 fl (80.0-105.0); MEAN CORPUSCULAR HEMOGLOBIN 29.4 pg (25.0-35.0); MEAN CORPUSCULAR HGB CONC 31.9 g/dl (31.0-37.0); MEAN PLATELET VOLUME 9.9 fl (7.0-11.0); MONO # 0.3 (0.1-0.6); RBC 3.4 10^6/uL (3.5-6.1); RED CELL DISTRIBUTION WIDTH 18.3 % (11.5-14.5); WHITE BLOOD COUNT 15.4 10^3/ul (4.5-11.0)
[2017-09-04] MEDS: Enoxaparin 40 mg Syringe SC SCH (09:31)
[2017-09-04] MEDS ORDERED: Potassium Chloride 10 mEq ER Tab PO ONE (09:43)
[2017-09-04] MEDS ORDERED: Midazolam 2 MG/2 ML VIAL ONE ×2 (10:04→12:05)
[2017-09-04] MEDS ORDERED: Lidocaine 2% Inj (20ml) ONE (10:04)
[2017-09-04] MEDS ORDERED: Iohexol 350mgl/ml 50 ML ONE (10:05)
[2017-09-04] MEDS ORDERED: HEPARIN SODIUM/NS 2,000 ML IV ONE (10:05)
[2017-09-04] MEDS ORDERED: Iodixanol 320 MG/ML 200 ML BOTTLE IV ONE (10:05)
--- NOTE | 2017-09-04 11:29 | CP.CCUPN ---
<Esau Medley - Last Filed: 09/04/17 11:39> CCU Subjective - Physician Review Subjective (Free Text): Patient seen and evaluated bedside. Patient complains of abdominal pain. She says she is trying to eat breakfast today. No acute issues overnight, patient denies shortness of breath, chest pain, nausea, fever, chills or any other complaints. 09/04/17 11:26 Critical Care Time Spent (in minutes): 40 CCU Objective - Vital Signs / Intake & Output Intake and Output (Last 8hrs): Intake & Output 09/03/17 09/04/17 09/04/17 22:59 06:59 14:59 Intake Total 674 100 10 Output Total 1250 2600 Balance -576 -2500 10 Intake: IV 674 100 10 Right Subclavian 574 Output: Urine 1250 2600 Suprapubic 1250 2600 Other: # Bowel Movements 1 - Physical Exam Head: Positive for: Atraumatic, Normocephalic Extroacular Muscles: Positive for: EOMI Conjunctiva: Positive for: Normal Mouth: Positive for: Moist Mucous Membranes Neck: Positive for: Normal Range of Motion Respiratory/Chest: Positive for: Rales Cardiovascular: Positive for: Regular Rate and Rhythm, Tachycardic Lower Extremity: Negative for: Edema - Medications Active Medications: Active Medications Generic Name Dose Route Start Last Admin Trade Name Freq PRN Reason Stop Dose Admin Albuterol/Ipratropium 3 ml 09/02/17 20:00 09/04/17 07:58 Duoneb 3 Mg/0.5 Mg (3 Ml) Ud IH 3 ml [id number] YUMI Administration Benzocaine/Menthol 1 halle 09/03/17 21:25 09/03/17 22:18 Cepacol Sore Throat MT 1 halle Q2H PRN Administration Sore Throat Digoxin 0.125 mg 09/03/17 14:00 09/03/17 14:32 Lanoxin IVP 0.125 mg 1400 [facility] Administration Enoxaparin Sodium 40 mg 09/02/17 16:30 09/03/17 09:23 Lovenox SC 40 mg DAILY Y[facility]I Administration Protocol Furosemide 40 mg 09/02/17 22:00 09/03/17 21:28 Lasix IVP 40 mg Q12 Y[facility]I Administration Propofol 1,000 mg in 100 mls @ 1.987 mls/hr 09/02/17 12:53 09/03/17 11:49 Diprivan IV 0 mcg/kg/min .Q24H PRN 0 mls/hr TITRATE PER MD ORDER Titration Protocol 5 MCG/KG/MIN Acetaminophen 1,000 mg in 100 mls @ 400 mls/hr 09/02/17 15:00 09/04/17 04:01 Ofirmev IVPB 09/04/17 15:01 400 mls/hr Q6H PRN Administration Temperature Milrinone Lactate/Dextrose 100 mls @ 7.45 mls/hr 09/02/17 16:14 09/04/17 09: 30 Primacor 20mg/100ml D5w IV 0 mcg/kg/min .[id number] PRN 0 mls/hr TITRATE PER MD ORDER Titration Protocol 0.375 MCG/KG/MIN Doxycycline Hyclate 100 mg/ 100 mls @ 100 mls/hr 09/03/17 11:00 09/03/17 21: 36 Sodium Chloride IVPB 09/12/17 11:01 100 mls/hr Q12 [facility]I Administration Protocol Meropenem 50 mls @ 100 mls/hr 09/03/17 10:50 09/03/17 21:32 Merrem Iv 1 Gm Premix IVPB 100 mls/hr Q12 [facility] Administration Protocol Morphine Sulfate 1 mg 09/03/17 17:59 09/04/17 05:10 Morphine IVP 1 mg Q4H PRN Administration Pain, moderate (4-7) Pantoprazole Sodium 40 mg 09/02/17 15:15 09/03/17 09:23 Protonix Inj IVP 40 mg DAILY Y[facility]I Administration Polyethylene Glycol 17 gm 09/03/17 21:20 09/03/17 22:18 Miralax PO 17 gm DAILY [facility]I Administration - Patient Studies Lab Studies: Microbiology Studies 09/02/17 16:01 MRSA Culture (Admit) - Final Naris MRSA NOT DETECTED 09/02/17 14:26 Urine Culture - Final Urine No Growth (<1,000 CFU/ML) Lab Studies 09/04/17 09/04/17 09/04/17 Range/Units 06:20 05:16 05:16 WBC 15.4 H (4.5-11.0) 10^3/ul RBC 3.40 L (3.5-6.1) 10^6/uL Hgb 10.0 L (12.0-16.0) g/dL Hct 31.3 L (36.0-48.0) % MCV 92.1 (80.0-105.0) fl MCH 29.4 (25.0-35.0) pg MCHC 31.9 (31.0-37.0) g/dl RDW 18.3 H (11.5-14.5) % Plt Count 165 (120.0-450.0) 10^3/uL MPV 9.9 (7.0-11.0) fl Gran % 94.0 H (50.0-68.0) % Lymph % (Auto) 3.6 L (22.0-35.0) % Valley % (Auto) 2.0 (1.0-6.0) % Eos % (Auto) 0.3 L (1.5-5.0) % Baso % (Auto) 0.1 (0.0-3.0) % Gran # 14.49 H (1.4-6.5) Lymph # (Auto) 0.6 L (1.2-3.4) Valley # (Auto) 0.3 (0.1-0.6) Eos # (Auto) 0.1 (0.0-0.7) Baso # (Auto) 0.02 (0.0-2.0) K/mm3 Sodium 141 (132-148) mmol/L Potassium 3.0 L (3.6-5.0) mmol/L Chloride 103 (98-107) mmol/L Carbon Dioxide 31 (21-33) mmol/L Anion Gap 9 L (10-20) BUN 18 (7-21) mg/dL Creatinine 1.0 (0.7-1.2) mg/dl Est GFR ( Amer) > 60 Est GFR (Non-Af Amer) 56 Random Glucose 89 (70-110) mg/dL Calcium 9.0 (8.4-10.5) mg/dL Phosphorus 2.9 (2.5-4.5) mg/dL Magnesium 1.8 (1.7-2.2) mg/dL Total Bilirubin 0.9 (0.2-1.3) mg/dL AST 106 H D (14-36) U/L ALT 156 H (7-56) U/L Alkaline Phosphatase 91 (38-126) U/L Total Protein 6.4 (5.8-8.3) g/dL Albumin 3.3 (3.0-4.8) g/dL Globulin 3.0 gm/dL Albumin/Globulin Ratio 1.1 (1.1-1.8) Procalcitonin (0.19-0.49) NG/ML Digoxin 0.6 L (0.8-2.0) ng/mL 09/03/17 Range/Units 09:40 WBC (4.5-11.0) 10^3/ul RBC (3.5-6.1) 10^6/uL Hgb (12.0-16.0) g/dL Hct (36.0-48.0) % MCV (80.0-105.0) fl MCH (25.0-35.0) pg MCHC (31.0-37.0) g/dl RDW (11.5-14.5) % Plt Count (120.0-450.0) 10^3/uL MPV (7.0-11.0) fl Gran % (50.0-68.0) % Lymph % (Auto) (22.0-35.0) % Valley % (Auto) (1.0-6.0) % Eos % (Auto) (1.5-5.0) % Baso % (Auto) (0.0-3.0) % Gran # (1.4-6.5) Lymph # (Auto) (1.2-3.4) Valley # (Auto) (0.1-0.6) Eos # (Auto) (0.0-0.7) Baso # (Auto) (0.0-2.0) K/mm3 Sodium (132-148) mmol/L Potassium (3.6-5.0) mmol/L Chloride (98-107) mmol/L Carbon Dioxide (21-33) mmol/L Anion Gap (10-20) BUN (7-21) mg/dL Creatinine (0.7-1.2) mg/dl Est GFR ( Amer) Est GFR (Non-Af Amer) Random Glucose (70-110) mg/dL Calcium (8.4-10.5) mg/dL Phosphorus (2.5-4.5) mg/dL Magnesium (1.7-2.2) mg/dL Total Bilirubin (0.2-1.3) mg/dL AST (14-36) U/L ALT (7-56) U/L Alkaline Phosphatase (38-126) U/L Total Protein (5.8-8.3) g/dL Albumin (3.0-4.8) g/dL Globulin gm/dL Albumin/Globulin Ratio (1.1-1.8) Procalcitonin 35.02 H (0.19-0.49) NG/ML Digoxin (0.8-2.0) ng/mL Laboratory Results - last 24 hr 09/03/17 09/04/17 09/04/17 09:40 05:16 05:16 WBC RBC Hgb Hct MCV MCH MCHC RDW Plt Count MPV Gran % Lymph % (Auto) Valley % (Auto) Eos % (Auto) Baso % (Auto) Gran # Lymph # (Auto) [place] # (Auto) Eos # (Auto) Baso # (Auto) Sodium 141 Potassium 3.0 L Chloride 103 Carbon Dioxide 31 Anion Gap 9 L BUN 18 Creatinine 1.0 Est GFR ( Amer) > 60 Est GFR (Non-Af Amer) 56 Random Glucose 89 Calcium 9.0 Phosphorus 2.9 Magnesium 1.8 Total Bilirubin 0.9 AST 106 H D ALT 156 H Alkaline Phosphatase 91 Total Protein 6.4 Albumin 3.3 Globulin 3.0 Albumin/Globulin Ratio 1.1 Procalcitonin 35.02 H Digoxin 0.6 L 09/04/17 06:20 WBC 15.4 H RBC 3.40 L Hgb 10.0 L Hct 31.3 L MCV 92.1 MCH 29.4 MCHC 31.9 RDW 18.3 H Plt Count 165 MPV 9.9 Gran % 94.0 H Lymph % (Auto) 3.6 L Valley % (Auto) 2.0 Eos % (Auto) 0.3 L Baso % (Auto) 0.1 Gran # 14.49 H Lymph # (Auto) 0.6 L [place] # (Auto) 0.3 Eos # (Auto) 0.1 Baso # (Auto) 0.02 Sodium Potassium Chloride Carbon Dioxide Anion Gap BUN Creatinine Est GFR ( Amer) Est GFR (Non-Af Amer) Random Glucose Calcium Phosphorus Magnesium Total Bilirubin AST ALT Alkaline Phosphatase Total Protein Albumin Globulin Albumin/Globulin Ratio Procalcitonin Digoxin EKG/Cardiology Studies: Cardiology / EKG Studies 09/03/17 13:37 ELECTROCARDIOGRAM Stat Comment: Reason For Exam: sob Review of Systems - Constitutional Constitutional: absent: Fever, Chills, Sweats - Cardiovascular Cardiovascular: UNREMARKABLE - Respiratory Respiratory: UNREMARKABLE - Gastrointestinal Gastrointestinal: Abdominal Pain Critical Care Progress Note - Nutrition Nutrition: Nutrition Category Date Time Status Regular Diet [DIET] Diets 09/04/17 Breakfast Ordered Assessment/Plan - Assessment and Plan (Free Text) Assessment: 62 year old female wiht past medical history of Stave IV ovarian cancer and bladder cancer presented with shortness of breath secondary to chronic CHF. Plan: 1. CHF-acute on chronic -recent cardiac cath showed 25% EF -milrinone, digoxin, lasix continnue -Troponin .59 -echo pending 2. Perineal Cellulitis -continue abx doxy and meropenem -ID consulted, follow recs 3. Stave IV ovarian cancer-chronic -treatment with Avastin outpatient -nothing to be done currently GI Prophylaxis- Protonix -continue Monitor H/H - continue Fingerstick Glucose monitoring <Dru Colon - Last Filed: 09/04/17 11:49> CCU Objective - Vital Signs / Intake & Output Intake and Output (Last 8hrs): Intake & Output 09/03/17 09/04/17 09/04/17 22:59 06:59 14:59 Intake Total 674 100 10 Output Total 1250 2600 Balance -576 -2500 10 Intake: IV 674 100 10 Right Subclavian 574 Output: Urine 1250 2600 Suprapubic 1250 2600 Other: # Bowel Movements 1 - Medications Active Medications: Active Medications Generic Name Dose Route Start Last Admin Trade Name Freq PRN Reason Stop Dose Admin Albuterol/Ipratropium 3 ml 09/02/17 20:00 09/04/17 07:58 Duoneb 3 Mg/0.5 Mg (3 Ml) Ud IH 3 ml [id number] YUMI Administration Benzocaine/Menthol 1 halle 09/03/17 21:25 09/03/17 22:18 Cepacol Sore Throat MT 1 halle Q2H PRN Administration Sore Throat Digoxin 0.125 mg 09/03/17 14:00 09/03/17 14:32 Lanoxin IVP 0.125 mg 1400 YUMI Administration Enoxaparin Sodium 40 mg 09/02/17 16:30 09/03/17 09:23 Lovenox SC 40 mg DAILY YUMI Administration Protocol Furosemide 40 mg 09/02/17 22:00 09/03/17 21:28 Lasix IVP 40 mg Q12 YUMI Administration Propofol 1,000 mg in 100 mls @ 1.987 mls/hr 09/02/17 12:53 09/03/17 11:49 Diprivan IV 0 mcg/kg/min .Q24H PRN 0 mls/hr TITRATE PER MD ORDER Titration Protocol 5 MCG/KG/MIN Acetaminophen 1,000 mg in 100 mls @ 400 mls/hr 09/02/17 15:00 09/04/17 04:01 Ofirmev IVPB 09/04/17 15:01 400 mls/hr Q6H PRN Administration Temperature Milrinone Lactate/Dextrose 100 mls @ 7.45 mls/hr 09/02/17 16:14 09/04/17 09: 30 Primacor 20mg/100ml D5w IV 0 mcg/kg/min .[id number] PRN 0 mls/hr TITRATE PER MD ORDER Titration Protocol 0.375 MCG/KG/MIN Doxycycline Hyclate 100 mg/ 100 mls @ 100 mls/hr 09/03/17 11:00 09/03/17 21: 36 Sodium Chloride IVPB 09/12/17 11:01 100 mls/hr Q12 YUMI Administration Protocol Meropenem 50 mls @ 100 mls/hr 09/03/17 10:50 09/03/17 21:32 Merrem Iv 1 Gm Premix IVPB 100 mls/hr Q12 [facility]UMI Administration Protocol Morphine Sulfate 1 mg 09/03/17 17:59 09/04/17 05:10 Morphine IVP 1 mg Q4H PRN Administration Pain, moderate (4-7) Pantoprazole Sodium 40 mg 09/02/17 15:15 09/03/17 09:23 Protonix Inj IVP 40 mg DAILY YUMI Administration Polyethylene Glycol 17 gm 09/03/17 21:20 09/03/17 22:18 Miralax PO 17 gm DAILY YUMI Administration - Patient Studies Lab Studies: Microbiology Studies 09/02/17 16:01 MRSA Culture (Admit) - Final Naris MRSA NOT DETECTED 09/02/17 14:26 Urine Culture - Final Urine No Growth (<1,000 CFU/ML) Lab Studies 09/04/17 09/04/17 09/04/17 Range/Units 06:20 05:16 05:16 WBC 15.4 H (4.5-11.0) 10^3/ul RBC 3.40 L (3.5-6.1) 10^6/uL Hgb 10.0 L (12.0-16.0) g/dL Hct 31.3 L (36.0-48.0) % MCV 92.1 (80.0-105.0) fl MCH 29.4 (25.0-35.0) pg MCHC 31.9 (31.0-37.0) g/dl RDW 18.3 H (11.5-14.5) % Plt Count 165 (120.0-450.0) 10^3/uL MPV 9.9 (7.0-11.0) fl Gran % 94.0 H (50.0-68.0) % Lymph % (Auto) 3.6 L (22.0-35.0) % Valley % (Auto) 2.0 (1.0-6.0) % Eos % (Auto) 0.3 L (1.5-5.0) % Baso % (Auto) 0.1 (0.0-3.0) % Gran # 14.49 H (1.4-6.5) Lymph # (Auto) 0.6 L (1.2-3.4) Valley # (Auto) 0.3 (0.1-0.6) Eos # (Auto) 0.1 (0.0-0.7) Baso # (Auto) 0.02 (0.0-2.0) K/mm3 Sodium 141 (132-148) mmol/L Potassium 3.0 L (3.6-5.0) mmol/L Chloride 103 (98-107) mmol/L Carbon Dioxide 31 (21-33) mmol/L Anion Gap 9 L (10-20) BUN 18 (7-21) mg/dL Creatinine 1.0 (0.7-1.2) mg/dl Est GFR ( Amer) > 60 Est GFR (Non-Af Amer) 56 Random Glucose 89 (70-110) mg/dL Calcium 9.0 (8.4-10.5) mg/dL Phosphorus 2.9 (2.5-4.5) mg/dL Magnesium 1.8 (1.7-2.2) mg/dL Total Bilirubin 0.9 (0.2-1.3) mg/dL AST 106 H D (14-36) U/L ALT 156 H (7-56) U/L Alkaline Phosphatase 91 (38-126) U/L Total Protein 6.4 (5.8-8.3) g/dL Albumin 3.3 (3.0-4.8) g/dL Globulin 3.0 gm/dL Albumin/Globulin Ratio 1.1 (1.1-1.8) Procalcitonin (0.19-0.49) NG/ML Digoxin 0.6 L (0.8-2.0) ng/mL 09/03/17 Range/Units 09:40 WBC (4.5-11.0) 10^3/ul RBC (3.5-6.1) 10^6/uL Hgb (12.0-16.0) g/dL Hct (36.0-48.0) % MCV (80.0-105.0) fl MCH (25.0-35.0) pg MCHC (31.0-37.0) g/dl RDW (11.5-14.5) % Plt Count (120.0-450.0) 10^3/uL MPV (7.0-11.0) fl Gran % (50.0-68.0) % Lymph % (Auto) (22.0-35.0) % Valley % (Auto) (1.0-6.0) % Eos % (Auto) (1.5-5.0) % Baso % (Auto) (0.0-3.0) % Gran # (1.4-6.5) Lymph # (Auto) (1.2-3.4) Valley # (Auto) (0.1-0.6) Eos # (Auto) (0.0-0.7) Baso # (Auto) (0.0-2.0) K/mm3 Sodium (132-148) mmol/L Potassium (3.6-5.0) mmol/L Chloride (98-107) mmol/L Carbon Dioxide (21-33) mmol/L Anion Gap (10-20) BUN (7-21) mg/dL Creatinine (0.7-1.2) mg/dl Est GFR ( Amer) Est GFR (Non-Af Amer) Random Glucose (70-110) mg/dL Calcium (8.4-10.5) mg/dL Phosphorus (2.5-4.5) mg/dL Magnesium (1.7-2.2) mg/dL Total Bilirubin (0.2-1.3) mg/dL AST (14-36) U/L ALT (7-56) U/L Alkaline Phosphatase (38-126) U/L Total Protein (5.8-8.3) g/dL Albumin (3.0-4.8) g/dL Globulin gm/dL Albumin/Globulin Ratio (1.1-1.8) Procalcitonin 35.02 H (0.19-0.49) NG/ML Digoxin (0.8-2.0) ng/mL Laboratory Results - last 24 hr 09/03/17 09/04/17 09/04/17 09:40 05:16 05:16 WBC RBC Hgb Hct MCV MCH MCHC RDW Plt Count MPV Gran % Lymph % (Auto) Valley % (Auto) Eos % (Auto) Baso % (Auto) Gran # Lymph # (Auto) Valley # (Auto) Eos # (Auto) Baso # (Auto) Sodium 141 Potassium 3.0 L Chloride 103 Carbon Dioxide 31 Anion Gap 9 L BUN 18 Creatinine 1.0 Est GFR ( Amer) > 60 Est GFR (Non-Af Amer) 56 Random Glucose 89 Calcium 9.0 Phosphorus 2.9 Magnesium 1.8 Total Bilirubin 0.9 AST 106 H D ALT 156 H Alkaline Phosphatase 91 Total Protein 6.4 Albumin 3.3 Globulin 3.0 Albumin/Globulin Ratio 1.1 Procalcitonin 35.02 H Digoxin 0.6 L 09/04/17 06:20 WBC 15.4 H RBC 3.40 L Hgb 10.0 L Hct 31.3 L MCV 92.1 MCH 29.4 MCHC 31.9 RDW 18.3 H Plt Count 165 MPV 9.9 Gran % 94.0 H Lymph % (Auto) 3.6 L Valley % (Auto) 2.0 Eos % (Auto) 0.3 L Baso % (Auto) 0.1 Gran # 14.49 H Lymph # (Auto) 0.6 L [place] # (Auto) 0.3 Eos # (Auto) 0.1 Baso # (Auto) 0.02 Sodium Potassium Chloride Carbon Dioxide Anion Gap BUN Creatinine Est GFR ( Amer) Est GFR (Non-Af Amer) Random Glucose Calcium Phosphorus Magnesium Total Bilirubin AST ALT Alkaline Phosphatase Total Protein Albumin Globulin Albumin/Globulin Ratio Procalcitonin Digoxin EKG/Cardiology Studies: Cardiology / EKG Studies 09/03/17 13:37 ELECTROCARDIOGRAM Stat Comment: Reason For Exam: sob Critical Care Progress Note - Nutrition Nutrition: Nutrition Category Date Time Status Regular Diet [DIET] Diets 09/04/17 Breakfast Ordered Assessment/Plan - Assessment and Plan (Free Text) Plan: Patient seen and examined, on rounds with resident, agree with note with following additions/exceptions: Patient is 62yo female with PMHx of stage 4 Ovarian CA with mets, chronic systolic CHF, a/w resp failure, 2/2 CHF, requiring intubatioon, now extubated Currnetly afebrile, HD stable, comfortable in NAD, on 2LNC sat 97% Awaiting cardiac cath today CHF, acute on chronic systolic, exacerbation Ovarian CA, stage IV Perineal Cellulitis Recommend: - supp o2 as needed - Antibiotics, Merrem, Doxy - Follow up cultures - IV diuresis, - HOLD Primacor, for cath today - ASA, BB, Statin - follow up palliative care - GI pp - DVT ppx - Stable,
--- NOTE | 2017-09-04 11:35 | CP.PCM.CON ---
History of Present Illness - History of Present Illness History of Present Illness: Palliative consult requested by Dr. Felicia Hernadez Reason: [place] of care 62 year old female whit history of MS, metastatic ovarian cancer and who presented with shortness of breath,non productive cough. She denied chest pain, fever, chills.Labs, leukocytosis, anemia, BUN 25, tropinin 0.45, procalcitonin 35.02. She had increasing respiratory distress requiring intubation. She has since been extubated. Cultures negative . CT scan of abdomen showed decrease in size of pelvic mass, mild ascites,upper abdominal retroperitoneal adenopathy and cholecystitis. PMHx: CAD s/p stent, EF 25%, CHF,cardiomyopathy,AICD,metastatic ovarian cancer, s/p TAHBO,ascites, renal calculi, hydornephrosis, urostomy tube, DVT LLE. Social History: Non smoker, no alcohol or drug use. Lives with spouse. Family History: Non contributory. Advance Care Planning: Reinstated POLST: DNR/DNI. Her sister Gia Spears is her POA ([phone]). Review of Systems: As per HPI, 12 point review otherwise negative. 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 - HEENT Hx HEENT Problems: No Other/Comment: wears glasses - RENAL Hx Chronic Kidney Disease: Yes Other/Comment: bladder stones/ cancer - ENDOCRINE/METABOLIC Hx Endocrine Disorders: No - HEMATOLOGICAL/ONCOLOGICAL Hx Cancer: Yes (Ovarian and bladder) - INTEGUMENTARY Hx Dermatological Problems: No - MUSCULOSKELETAL/RHEUMATOLOGICAL Hx Musculoskeletal Disorders: Yes - GASTROINTESTINAL Hx Gastrointestinal Disorders: Yes Hx Gastroesophageal Reflux: Yes Hx Vomiting: No - GENITOURINARY/GYNECOLOGICAL Hx Genitourinary Disorders: Yes Hx Bladder Cancer: Yes Hx Bladder Stone: Yes Hx Ovarian Cancer: Yes Other/Comment: + R side urostomy - PSYCHIATRIC Hx Emotional Abuse: No Hx Physical Abuse: No Hx Substance Use: No - SURGICAL HISTORY Other/Comment: Gtube reversal. R side urostomy. L side pacemaker/ defibrillator. Partial hysterectomy. Bladder cancer resection - ANESTHESIA Hx Anesthesia Reactions: No Hx Malignant Hyperthermia: No Meds Allergies/Adverse Reactions: Allergies Allergy/AdvReac Type Severity Reaction Status Date / Time No Known Allergies Allergy Verified 09/02/17 10:37 - Medications Medications: Current Medications Albuterol/Ipratropium (Duoneb 3 Mg/0.5 Mg (3 Ml) Ud) 3 ml IH [id number] [facility] Last Admin: 09/04/17 07:58 Dose: 3 ml Benzocaine/Menthol (Cepacol Sore Throat) 1 halle MT Q2H PRN PRN Reason: Sore Throat Last Admin: 09/03/17 22:18 Dose: 1 halle Digoxin (Lanoxin) 0.125 mg IVP 1400 [facility] Last Admin: 09/03/17 14:32 Dose: 0.125 mg Enoxaparin Sodium (Lovenox) 40 mg SC DAILY [facility] PRN Reason: Protocol Last Admin: 09/03/17 09:23 Dose: 40 mg Furosemide (Lasix) 40 mg IVP Q12 [facility] Last Admin: 09/03/17 21:28 Dose: 40 mg Propofol (Diprivan) 1,000 mg in 100 mls @ 1.987 mls/hr IV .Q24H PRN; Protocol; 5 MCG/KG/MIN PRN Reason: TITRATE PER MD ORDER Last Titration: 09/03/17 11:49 Dose: 0 mcg/kg/min, 0 mls/hr Acetaminophen (Ofirmev) 1,000 mg in 100 mls @ 400 mls/hr IVPB Q6H PRN PRN Reason: Temperature Stop: 09/04/17 15:01 Last Admin: 09/04/17 04:01 Dose: 400 mls/hr Milrinone Lactate/Dextrose (Primacor 20mg/100ml D5w) 100 mls @ 7.45 mls/hr IV .[id number] PRN; Protocol; 0.375 MCG/KG/MIN PRN Reason: TITRATE PER MD ORDER Last Titration: 09/04/17 09:30 Dose: 0 mcg/kg/min, 0 mls/hr Doxycycline Hyclate 100 mg/ (Sodium Chloride) 100 mls @ 100 mls/hr IVPB Q12 [facility] PRN Reason: Protocol Stop: 09/12/17 11:01 Last Admin: 09/03/17 21:36 Dose: 100 mls/hr Meropenem (Merrem Iv 1 Gm Premix) 50 mls @ 100 mls/hr IVPB Q12 [facility] PRN Reason: Protocol Last Admin: 09/03/17 21:32 Dose: 100 mls/hr Morphine Sulfate (Morphine) 1 mg IVP Q4H PRN PRN Reason: Pain, moderate (4-7) Last Admin: 09/04/17 05:10 Dose: 1 mg Pantoprazole Sodium (Protonix Inj) 40 mg IVP DAILY [facility] Last Admin: 09/03/17 09:23 Dose: 40 mg Polyethylene Glycol (Miralax) 17 gm PO DAILY [facility] Last Admin: 09/03/17 22:18 Dose: 17 gm Physical Exam - Constitutional Appears: No Acute Distress, Chronically Ill - Head Exam Head Exam: NORMAL INSPECTION - Eye Exam Eye Exam: Normal appearance, PERRL - ENT Exam ENT Exam: Mucous Membranes Moist, Normal Oropharynx - Neck Exam Neck exam: Positive for: Normal Inspection - Respiratory Exam Respiratory Exam: Decreased Breath Sounds, Rales, NORMAL BREATHING PATTERN - Cardiovascular Exam Cardiovascular Exam: Tachycardia, +S1, +S2 - GI/Abdominal Exam GI & Abdominal Exam: Normal Bowel Sounds, Soft - Extremities Exam Extremities exam: Positive for: pedal edema, pedal pulses present - Back Exam Back exam: NORMAL INSPECTION - Neurological Exam Neurological exam: Alert, Oriented x3 - Skin Skin Exam: Dry, Warm - Additional Findings Additional findings: Palliative performance scale rating 50% Results - Vital Signs Recent Vital Signs: Last Vital Signs Temp 99.4 F 09/03/17 18:00 Pulse 110 H 09/04/17 06:00 Resp 19 09/04/17 06:00 BP 79/50 L 09/04/17 06:00 Pulse Ox 98 09/04/17 06:00 - Labs Result Diagrams: 09/04/17 06:20 09/04/17 05:16 Labs: Laboratory Results - last 24 hr 09/03/17 09/04/17 09/04/17 09:40 05:16 05:16 WBC RBC Hgb Hct MCV MCH MCHC RDW Plt Count MPV Gran % Lymph % (Auto) [place] % (Auto) Eos % (Auto) Baso % (Auto) Gran # Lymph # (Auto) [place] # (Auto) Eos # (Auto) Baso # (Auto) Sodium 141 Potassium 3.0 L Chloride 103 Carbon Dioxide 31 Anion Gap 9 L BUN 18 Creatinine 1.0 Est GFR ( Amer) > 60 Est GFR (Non-Af Amer) 56 Random Glucose 89 Calcium 9.0 Phosphorus 2.9 Magnesium 1.8 Total Bilirubin 0.9 AST 106 H D ALT 156 H Alkaline Phosphatase 91 Total Protein 6.4 Albumin 3.3 Globulin 3.0 Albumin/Globulin Ratio 1.1 Procalcitonin 35.02 H Digoxin 0.6 L 18 06:20 WBC 15.4 H RBC 3.40 L Hgb 10.0 L Hct 31.3 L MCV 92.1 MCH 29.4 MCHC 31.9 RDW 18.3 H Plt Count 165 MPV 9.9 Gran % 94.0 H Lymph % (Auto) 3.6 L [place] % (Auto) 2.0 Eos % (Auto) 0.3 L Baso % (Auto) 0.1 Gran # 14.49 H Lymph # (Auto) 0.6 L [place] # (Auto) 0.3 Eos # (Auto) 0.1 Baso # (Auto) 0.02 Sodium Potassium Chloride Carbon Dioxide Anion Gap BUN Creatinine Est GFR ( Amer) Est GFR (Non-Af Amer) Random Glucose Calcium Phosphorus Magnesium Total Bilirubin AST ALT Alkaline Phosphatase Total Protein Albumin Globulin Albumin/Globulin Ratio Procalcitonin Digoxin Assessment & Plan - Assessment and Plan (Free Text) Assessment: 62 year old female with history of cardiomyopathy, CHF, metastatic ovarian cancer and MS who is admitted with sepsis, respiratory failure, CHF exacerbation , s/p intubation. Ramila is known to me from previous admission As in the past, I had another lengthy discussion with Ramila regarding goals of care and advance care planning. Ramila stated that she wanted to reinstate DNR/DNI status. POLST completed. Ramila does not want to be intubated or have CPR performed. She affirmed this in the presence of Juan J Lester RN. We also spoke about future goals of care. Hospice was discussed at length. Ramila states she is ready to transition to hospice care. Ramila states that her and son are having a hard time with her decision but that her sister is supportive. I explained that her family should be included in these conversations as she would need their support. She is agreeable to me speaking about this with her sister I also spoke with POA/sister Gia Spears via phone. I relayed my conversation with Ramila involving resuscitation status as well as hospice care. Hospice services explained in detail. Gia states that she will support her sister in which ever way she can. Gia is agreeable to hospice. Gia states that she wants to speak with Ramila's and son about transitioning to home hospice care. Time spent with patient and family in goals of care and hospice discussions, 45 minutes Plan: Sepsis; continue antibiotics and ID recommendations. CHF: cardiac monitoring, ECHO, Lasix, cardiology recommendations Advance care planning;POLST: DNR/DNI Palliative support in establishing goals of care.
[2017-09-04] MEDS ORDERED: Naloxone 0.4 mg/ml Inj (Adult) ONE (12:31)
[2017-09-04] MEDS ORDERED: Sodium Chloride 0.45% 1,000 ML IV SCH (13:00)
[2017-09-04] MEDS: POLYETHYLENE GLYCOL 3350 17 GM/Dose PACKET PO SCH (13:28)
[2017-09-04] MEDS: Meropenem IV 1 gm in NS 50 ML IVPB SCH ×2 (13:29→21:05)
[2017-09-04] MEDS: Digoxin 500 mcg/2ml (0.5 mg/2ml) Inj IVP SCH (15:35)
--- NOTE | 2017-09-04 17:07 | CARDCATH ---
PROCEDURE DATE: 09/04/2017 HISTORY: The patient is a 62-year-old woman, who presented with acute pulmonary edema. The patient was diuresed. Her troponins were found to be elevated. Cardiac catheterization was recommended. PROCEDURE: Left heart catheterization with coronary arteriography and left ventriculogram. Right femoral artery was cannulated with a 6-Grenadian sheath. There were no complications. I performed moderate sedation, which included the presence of an independent trained observer that assisted in monitoring the patient's level of consciousness and physiologic status. After administration of Versed and fentanyl, my intra service time was 15 minutes. The findings on catheterization revealed a left ventricle is dilated and globally hypokinetic. Estimated ejection fraction is 25%. The patient had a right dominant circulation. The RCA revealed intimal irregularities without significant stenoses. The left main artery is unremarkable. The LAD and diagonal vessels were free of significant disease. In the midportion of the LAD, there is an intramyocardial section that was seen on angiogram. The circumflex artery and obtuse marginal branches were free of significant disease. Manual compression was used to close the femoral artery site. The patient tolerated the procedure well. In summary, the procedure revealed a dilated cardiomyopathy with an EF of 25%. There were no critical lesions in the coronary arteries. Given these findings, the patient will need to remain on Lasix as well as KELBY inhibitors. Kwame Granado MD
--- NOTE | 2017-09-04 23:49 | PN ---
DATE: 09/04/2017 SUBJECTIVE: She is comfortable in bed. She was extubated yesterday, admitted with respiratory distress and she has congestive cardiac failure related to low ejection fraction. She underwent cardiac catheterization today with clean coronaries. Ejection fraction 25%. Troponins were elevated during this admission and she has stage IV ovarian cancer, bladder cancer. She also has perineal cellulitis, which is improving. REVIEW OF SYSTEMS: As per HPI. Rest of 12-point review of systems reviewed and negative. PHYSICAL EXAMINATION: GENERAL: Comfortable in bed, in no acute distress. VITAL SIGNS: Heart rate is 100 per minute, blood pressure 94/54, respiratory rate 30 per minute, oxygen saturation 99% on oxygen by nasal cannula. HEENT: Pallor positive. NECK: No lymphadenopathy. CHEST: Air entry present and equal bilaterally. No added sounds. CARDIOVASCULAR: Tachycardia present. ABDOMEN: Soft and nontender. Colostomy bag present. EXTREMITIES: Left extremity, a few superficial ulcerations present. CENTRAL NERVOUS SYSTEM: Alert, oriented x3. No focal sensory or motor deficit. SKIN: No petechiae and no rash. LABORATORY DATA: White count 15,000, hemoglobin 10, hematocrit 31.3, platelet count 165. Sodium 141, potassium 3, AST 106, ALT 156, creatinine 1. ASSESSMENT: 1. Stage IV ovarian cancer. 2. Bladder cancer. 3. Congestive cardiac failure. 4. Multiple sclerosis. 5. Perineal cellulitis. 6. Transaminitis. PLAN: She was intubated on admission, currently extubated, on IV antibiotics as per ID. She is on digoxin, Lasix. Cardiology following. She is currently on milrinone drip for congestive cardiac failure. Palliative Services consulted today. She was made DNR/DNI. Family has been planning towards home hospice. Prognosis, poor. Antonia Lake MD
[2017-09-05] MEDS: Albuterol-Ipratrop 3 mg / 0.5 (3 ml) UD IH SCH ×4 (01:38→21:22)
[2017-09-05] MEDS: Morphine 2 mg/ml ISec IVP PRN ×4 (04:22→22:11)
[2017-09-05 07:02] LABS: BASO # 0.01 K/mm3 (0.0-2.0); BASO % 0.1 % (0.0-3.0); EOS # 0.4 (0.0-0.7); EOS % 2.2 % (1.5-5.0); GRAN # 15.53 (1.4-6.5); GRAN % 90.3 % (50.0-68.0); HEMOGLOBIN 12.1 g/dL (12.0-16.0); LYMPH # 0.8 (1.2-3.4); LYMPH % 4.4 % (22.0-35.0); MEAN CELL VOLUME 92.5 fl (80.0-105.0); MEAN CORPUSCULAR HEMOGLOBIN 30.4 pg (25.0-35.0); MEAN CORPUSCULAR HGB CONC 32.9 g/dl (31.0-37.0); MEAN PLATELET VOLUME 10.2 fl (7.0-11.0); MONO # 0.5 (0.1-0.6); RBC 3.98 10^6/uL (3.5-6.1); RED CELL DISTRIBUTION WIDTH 18.2 % (11.5-14.5); WHITE BLOOD COUNT 17.2 10^3/ul (4.5-11.0)
[2017-09-05 07:21] LABS: ALBUMIN 3.7 g/dL (3.0-4.8); ALT/SGPT 120 U/L (7-56); AST/SGOT 51 U/L (14-36); BLOOD UREA NITROGEN 11 mg/dL (7-21); CALCIUM 9.9 mg/dL (8.4-10.5); GFR AFRICAN-AMERICAN > 60; GFR NON-AFRICAN AMERICAN > 60
--- NOTE | 2017-09-05 08:22 | PN ---
DATE: 09/04/2017 SUBJECTIVE: Patient is 62 years old, seen and examined. Lying in bed, seems to be comfortable. She has cardiac cath done today because of her positive troponin. Patient states she had chemotherapy this last Monday. Since then, she has not been feeling well. She got short of breath. Called Dr. Lake who advised her to come to emergency room. PHYSICAL EXAMINATION: GENERAL: She is awake, alert, oriented, communicative. VITAL SIGNS: She is afebrile. Pulse 103, respirations 20, and blood pressure 120/69. LUNGS: Bilateral good air flow. No rhonchi or crackle. Decreased breath sounds at bases. HEART: S1 and S2 audible. ABDOMEN: Soft. Her ileal conduit in place. No hematuria. EXTREMITIES: Bilateral legs, no edema, however, she has lesions on her left leg. LABORATORY DATA: WBC 15.4, hemoglobin 10, hematocrit 31, platelets 165. Chemistry: Sodium 141, potassium 3.0, chloride 103, CO2 of 31, BUN 18, creatinine 1.0, blood sugar of 89. She had cardiac cath done today by Dr. Granado that shows dilated cardiomyopathy with ejection fraction of 25% and no critical lesion in the coronary artery seen. CT scan of the abdomen and pelvis shows decreased size of the pelvic mass, also low volume pelvic ascites, and upper abdomen shows retroperitoneal adenopathy. ASSESSMENT: 1. Respiratory failure, status post extubation. 2. Dilated cardiomyopathy. 3. Congestive heart failure. 4. History of cancer of bladder, status post cystectomy and ileal conduit formation. PLAN: Currently, patient is on milrinone drip. She is on meropenem, digoxin, and nebulizer treatment. She is receiving doxycycline. We also discussed about her further treatment plan. She does not want to get any more chemotherapy. Kimberley Hernadez MD
[2017-09-05] MEDS: POLYETHYLENE GLYCOL 3350 17 GM/Dose PACKET PO SCH (09:54)
[2017-09-05] MEDS: Enoxaparin 40 mg Syringe SC SCH (09:54)
--- NOTE | 2017-09-05 10:10 | CP.PCM.PN ---
Subjective - Date & Time of Evaluation Date of Evaluation: 09/04/17 Time of Evaluation: 09:20 - Subjective Subjective: Patient is now extubated, breathing better, underwent cardiac cath yesterday, no cough, no vomiting, no diarrhea. Objective - Vital Signs/Intake and Output Vital Signs (last 24 hours): Temp Pulse Resp BP Pulse Ox 99.4 F 110 H 19 79/50 L 98 09/03/17 18:00 09/04/17 06:00 09/04/17 06:00 09/04/17 06:00 09/04/17 06:00 Intake and Output: 09/04/17 09/04/17 06:59 18:59 Intake Total 100 Output Total 2600 Balance -2500 - Medications Medications: Current Medications Albuterol/Ipratropium (Duoneb 3 Mg/0.5 Mg (3 Ml) Ud) 3 ml IH [id number] [facility] Last Admin: 09/04/17 07:58 Dose: 3 ml Benzocaine/Menthol (Cepacol Sore Throat) 1 halle MT Q2H PRN PRN Reason: Sore Throat Last Admin: 09/03/17 22:18 Dose: 1 halle Digoxin (Lanoxin) 0.125 mg IVP 1400 [facility] Last Admin: 09/03/17 14:32 Dose: 0.125 mg Enoxaparin Sodium (Lovenox) 40 mg SC DAILY [facility] PRN Reason: Protocol Last Admin: 09/03/17 09:23 Dose: 40 mg Furosemide (Lasix) 40 mg IVP Q12 [facility] Last Admin: 09/03/17 21:28 Dose: 40 mg Propofol (Diprivan) 1,000 mg in 100 mls @ 1.987 mls/hr IV .Q24H PRN; Protocol; 5 MCG/KG/MIN PRN Reason: TITRATE PER MD ORDER Last Titration: 09/03/17 11:49 Dose: 0 mcg/kg/min, 0 mls/hr Acetaminophen (Ofirmev) 1,000 mg in 100 mls @ 400 mls/hr IVPB Q6H PRN PRN Reason: Temperature Stop: 09/04/17 15:01 Last Admin: 09/04/17 04:01 Dose: 400 mls/hr Milrinone Lactate/Dextrose (Primacor 20mg/100ml D5w) 100 mls @ 7.45 mls/hr IV .[id number] PRN; Protocol; 0.375 MCG/KG/MIN PRN Reason: TITRATE PER MD ORDER Last Admin: 09/04/17 05:44 Dose: 0.375 mcg/kg/min, 7.45 mls/hr Doxycycline Hyclate 100 mg/ (Sodium Chloride) 100 mls @ 100 mls/hr IVPB Q12 [facility] PRN Reason: Protocol Stop: 09/12/17 11:01 Last Admin: 09/03/17 21:36 Dose: 100 mls/hr Meropenem (Merrem Iv 1 Gm Premix) 50 mls @ 100 mls/hr IVPB Q12 [facility] PRN Reason: Protocol Last Admin: 09/03/17 21:32 Dose: 100 mls/hr Morphine Sulfate (Morphine) 1 mg IVP Q4H PRN PRN Reason: Pain, moderate (4-7) Last Admin: 09/04/17 05:10 Dose: 1 mg Pantoprazole Sodium (Protonix Inj) 40 mg IVP DAILY [facility] Last Admin: 09/03/17 09:23 Dose: 40 mg Polyethylene Glycol (Miralax) 17 gm PO DAILY [facility] Last Admin: 09/03/17 22:18 Dose: 17 gm - Labs Labs: 09/04/17 06:20 09/04/17 05:16 PT 11.9 SECONDS (9.4-12.5) 09/02/17 11:05 INR 1.03 (0.93-1.08) 09/02/17 11:05 APTT 25.0 Seconds (25.1-36.5) L 09/02/17 11:05 - Constitutional Appears: Chronically Ill - Head Exam Head Exam: NORMAL INSPECTION - ENT Exam ENT Exam: Mucous Membranes Moist - Neck Exam Neck Exam: absent: Meningismus - Respiratory Exam Respiratory Exam: Decreased Breath Sounds - Cardiovascular Exam Cardiovascular Exam: +S1, +S2 - GI/Abdominal Exam GI & Abdominal Exam: Soft. absent: Tenderness Assessment and Plan - Assessment and Plan (Free Text) Plan: Assessment systemic inflammatory response syndrome probably due to acute stress reaction from acute on chronic CHF with dilated cardiomyopathy, no evidence of pneumonia noted history of E. coli bacteremia S/P Febrile neutropenia right leg infection with MSSA R/O acute CVA history of bilateral inguinal area skin and skin structure infection associated with ovarian cancer metastasis S/P I and D history of chronic left leg ulcers, infected with Pseudomonas and Proteus mirabilis urinary bladder / urethral cancer ovarian cancer multiple sclerosis S/P pacemaker placement S/P right sided port-a-cath placement Plan was started on Doxycycline and Merrem but cultures have been negative, patient afebrile and CXR is more compatible with CHF; PCT is elevated but patient has cancer - will d/c antibiotics and observe will monitor clinically overall prognosis is poor
--- NOTE | 2017-09-05 15:17 | PN ---
DATE: 09/05/2017 CARDIOLOGY FOLLOWUP SUBJECTIVE: The patient is comfortable in bed. No shortness of breath. No chest pain. PHYSICAL EXAMINATION: VITAL SIGNS: Blood pressure is 124/74, the heart rates in the 90s. NECK: Negative JVD. LUNGS: Without rales. HEART: Reveals S1, S2. EXTREMITIES: Without edema. The right groin site is stable. LABORATORY DATA: Hemoglobin is 12.1. Chemistries, BUN and creatinine unremarkable. IMPRESSION: 1. Non-ST elevation myocardial infarction. 2. Patent stent by cardiac catheterization. 3. Dilated cardiomyopathy. 4. Congestive heart failure, which is now resolved. 5. Stage IV ovarian carcinoma. Given these findings, the patient's cardiac status is being treated with Lasix, which we will switch to p.o. today. In addition, we will restart her Eliquis as well as her KELBY inhibitor. Kwame Granado MD
[2017-09-05] MEDS: Digoxin 500 mcg/2ml (0.5 mg/2ml) Inj IVP SCH (17:15)
[2017-09-06] MEDS: Morphine 2 mg/ml ISec IVP PRN ×3 (03:41→14:44)
[2017-09-06] MEDS: Albuterol-Ipratrop 3 mg / 0.5 (3 ml) UD IH SCH ×3 (04:11→13:09)
[2017-09-06 07:18] LABS: BASO # 0.03 K/mm3 (0.0-2.0); BASO % 0.4 % (0.0-3.0); EOS # 0.5 (0.0-0.7); EOS % 6.3 % (1.5-5.0); GRAN # 4.9 (1.4-6.5); GRAN % 68.4 % (50.0-68.0); HEMOGLOBIN 12.1 g/dL (12.0-16.0); LYMPH # 1.1 (1.2-3.4); LYMPH % 14.9 % (22.0-35.0); MEAN CELL VOLUME 91.2 fl (80.0-105.0); MEAN CORPUSCULAR HEMOGLOBIN 29.6 pg (25.0-35.0); MEAN CORPUSCULAR HGB CONC 32.4 g/dl (31.0-37.0); MEAN PLATELET VOLUME 10.1 fl (7.0-11.0); MONO # 0.7 (0.1-0.6); RBC 4.09 10^6/uL (3.5-6.1); RED CELL DISTRIBUTION WIDTH 17.8 % (11.5-14.5); WHITE BLOOD COUNT 7.2 10^3/ul (4.5-11.0)
[2017-09-06 07:37] LABS: ALB/GLOB RATIO 1.1 (1.1-1.8); ALBUMIN 3.9 g/dL (3.0-4.8); ALT/SGPT 92 U/L (7-56); AST/SGOT 43 U/L (14-36); BLOOD UREA NITROGEN 14 mg/dL (7-21); CALCIUM 10.1 mg/dL (8.4-10.5); GFR AFRICAN-AMERICAN > 60; GFR NON-AFRICAN AMERICAN > 60
[2017-09-06] MEDS: POLYETHYLENE GLYCOL 3350 17 GM/Dose PACKET PO SCH (09:11)
[2017-09-06] MEDS: Enoxaparin 40 mg Syringe SC SCH (09:13)
[2017-09-06] MEDS ORDERED: Pantoprazole 40 mg EC Tab PO SCH (10:00)
--- NOTE | 2017-09-06 13:23 | CP.PCM.PN ---
Subjective - Date & Time of Evaluation Date of Evaluation: 09/06/17 Time of Evaluation: 09:50 - Subjective Subjective: Comfortable in bed, breathing better, no fevers, not in distress. Objective - Vital Signs/Intake and Output Vital Signs (last 24 hours): Temp Pulse Resp BP Pulse Ox 98.4 F 96 H 20 132/72 95 09/06/17 05:15 09/06/17 01:11 09/06/17 01:11 09/06/17 05:30 09/06/17 05:30 Intake and Output: 09/06/17 09/06/17 06:59 18:59 Intake Total 480 Output Total 1600 Balance -1120 - Medications Medications: Current Medications Albuterol/Ipratropium (Duoneb 3 Mg/0.5 Mg (3 Ml) Ud) 3 ml IH [id number] [facility] Last Admin: 09/06/17 07:00 Dose: 3 ml Apixaban (Eliquis) 2.5 mg PO BID [facility] PRN Reason: Protocol Last Admin: 09/05/17 17:12 Dose: 2.5 mg Benzocaine/Menthol (Cepacol Sore Throat) 1 halle MT Q2H PRN PRN Reason: Sore Throat Last Admin: 09/03/17 22:18 Dose: 1 halle Digoxin (Lanoxin) 0.125 mg IVP 1400 [facility] Last Admin: 09/05/17 17:15 Dose: 0.125 mg Enoxaparin Sodium (Lovenox) 40 mg SC DAILY [facility] PRN Reason: Protocol Last Admin: 09/05/17 09:54 Dose: 40 mg Furosemide (Lasix) 40 mg IVP Q12 [facility] Last Admin: 09/05/17 21:16 Dose: 40 mg Lactulose (Enulose) 30 gm PO HS [facility] Last Admin: 09/05/17 21:15 Dose: 30 gm Lisinopril (Zestril) 5 mg PO DAILY [facility] Last Admin: 09/05/17 17:13 Dose: 5 mg Morphine Sulfate (Morphine) 2 mg IVP Q3H PRN PRN Reason: Pain, moderate (4-7) Last Admin: 09/06/17 03:41 Dose: 2 mg Ondansetron HCl (Zofran Inj) 4 mg IVP Q6H PRN PRN Reason: Nausea/Vomiting Pantoprazole Sodium (Protonix Ec Tab) 40 mg PO DAILY [facility] Polyethylene Glycol (Miralax) 17 gm PO DAILY [facility] Last Admin: 09/05/17 09:54 Dose: 17 gm - Labs Labs: 09/06/17 06:00 09/06/17 06:00 PT 11.9 SECONDS (9.4-12.5) 09/02/17 11:05 INR 1.03 (0.93-1.08) 09/02/17 11:05 APTT 25.0 Seconds (25.1-36.5) L 09/02/17 11:05 - Constitutional Appears: Chronically Ill - Head Exam Head Exam: NORMAL INSPECTION - Neck Exam Neck Exam: absent: Meningismus - Respiratory Exam Respiratory Exam: Decreased Breath Sounds - Cardiovascular Exam Cardiovascular Exam: +S1, +S2 - GI/Abdominal Exam GI & Abdominal Exam: Soft. absent: Tenderness Assessment and Plan - Assessment and Plan (Free Text) Plan: Assessment systemic inflammatory response syndrome probably due to acute stress reaction from acute on chronic CHF with dilated cardiomyopathy, no evidence of pneumonia noted history of E. coli bacteremia S/P Febrile neutropenia right leg infection with MSSA R/O acute CVA history of bilateral inguinal area skin and skin structure infection associated with ovarian cancer metastasis S/P I and D history of chronic left leg ulcers, infected with Pseudomonas and Proteus mirabilis urinary bladder / urethral cancer ovarian cancer multiple sclerosis S/P pacemaker placement S/P right sided port-a-cath placement Plan will continue to monitor off antibiotics since she is at risk for nosocomial infections overall prognosis is poor
[2017-09-06] MEDS: Digoxin 500 mcg/2ml (0.5 mg/2ml) Inj IVP SCH (14:44)
[2017-09-06 14:47] VITALS: PULSE 110
--- NOTE | 2017-09-06 14:55 | DS ---
HISTORY OF PRESENT ILLNESS: Patient is 62 years old who initially came in with increasing shortness of breath. Patient got chemotherapy last Monday. Two days after that she started to have shortness of breath, called Dr. Lake who advised her to come to emergency room. Patient was found to be hypoxic, was intubated and transferred to ICU. Patient has positive troponin, was taken to manufacturing lab[facility] for new occlusive disease, however, she was found to have cardiomyopathy, has been on IV diuretics. PAST MEDICAL HISTORY: Significant for: 1. CA bladder, status post hysterectomy and ileal conduit formation. 2. Cardiomyopathy status post pacemaker and defibrillator placement. 3. Metastatic ovarian CA. 4. Chronic anemia. So, the patient remains on IV antibiotics. She was on anticoagulants, DVT prophylaxis and Protonix. Rosamaria Whitaker spoke to the patient. They agreed for hospice care, so she is being discharged today to hospice care. PHYSICAL EXAMINATION: GENERAL: Today, she felt nauseous, states she has no appetite. VITAL SIGNS: She is afebrile. Pulse 90, respirations 18, blood pressure 110/65. LUNGS: Bilateral good air flow. No rhonchi or crackles. HEART: S1, S2, audible. ABDOMEN: Soft, slight epigastric discomfort. She has ileal conduit. NEUROLOGICAL: She is awake, alert, oriented and communicative. LABORATORY DATA: WBC is 17.2, hemoglobin 12, hematocrit 36, platelet 152. Chemistry: Sodium 139, potassium 3.5, chloride 100, CO2 31, BUN 11, creatinine 0.8. Blood sugar of 80. AST 51, ALT 120, alkaline phosphatase 126. ASSESSMENT: 1. Status post respiratory failure. 2. Metastatic ovarian cancer. 3. Cardiomyopathy. 4. Non-ST elevation myocardial infarction, status post cardiac catheterization, was found to have patent stent. PLAN: Patient is being discharged to hospice care. She states she does not want to take chemotherapy anymore. She will be on palliative and comfort care. Kimberley Hernadez MD
[2017-09-06 16:36] VITALS: BP 124/78; PULSE 104; RESP 16; TEMP 97.9; O2SAT 95
--- NOTE | 2017-09-06 22:53 | PN ---
DATE: 09/06/2017 SUBJECTIVE: This is a 62-year-old female, seen at bedside for left lower extremity ulceration. The patient states that the ulcerations have reopened. She states that they had blistered when she went back home. Patient's past medical history is positive for cancer of the bladder and cardiomegaly, metastatic ovarian cancer and chronic anemia. Patient states that she is no longer wanting to be on chemo. She states she wants to enjoy whatever part of her life she has left. She states she had spoke to her family about that and she is going home on hospice. Patient's lower extremities were examined and she does have dressings clean, dry and intact to the left lower leg. PHYSICAL EXAMINATION: VITAL SIGNS: Showed a 97.9 temperature, pulse rate was 104, blood pressure is 124/78, and respiration is 16. MEDICATIONS: Noted on AUG. ALLERGIES: SHE HAS NO KNOWN DRUG ALLERGIES. LABORATORY DATA: Her white blood cell count is 7.2, the H and H is 12.1 and 37.3. Chemistry shows BUN and creatinine within normal limit. The potassium is low at 3. Her liver functions are elevated as AST 43 and ALT 92. ASSESSMENT AND PLAN: Patient has 2/4 palpable pedal pulses to her lower extremities. She has 3 areas on her left leg, one at the proximal calf and one just distal to the calf area, both on the medial side. These ulcerations had gone on to heal while patient was last here at the hospital. She states that she does not know, but they did blister and they opened up again. She does not know what caused the blistering. At this time, there were 2 small superficial ulcerations as noted in the left lower leg, both of them have a thin granular wound bed to them, neither one of them have any cellulitis. There is no malodor. There is no fluctuance. There is no redness, and there is no . Stage 2 open blisters to the left lower extremity. PLAN OF TREATMENT: To continue with the Maxorb and the Optifoam three times a week. Patient is going home on hospice and she will have this done at home. Josefina Rosales DPM
--- NOTE | 2017-09-07 12:36 | DS ---
HISTORY OF PRESENT ILLNESS: Patient is 62 years old, seen and examined, complains of feeling ill, nauseous. No appetite. No fever or chills. No shortness of breath. PHYSICAL EXAMINATION: VITAL SIGNS: She is afebrile. Pulse 104, respirations 16, blood pressure 124/78. LUNGS: Bilateral good airflow. No rhonchi or crackle. HEART: S1, S2, audible. ABDOMEN: Soft, nontender. No rebound, no guarding. Ileal conduit in place. No hematuria. EXTREMITIES: Bilateral legs, she has a healing ulcer on the left leg, complains of calf pain, more on movement. LABORATORY EXAM: WBC 7.2, hemoglobin 12, hematocrit 37, platelets of 172. Chemistry: Sodium 140, potassium 3, chloride 97, CO2 of 32. BUN 14, creatinine 0.8. Blood sugar of 91. AST 43, ALT 92. ASSESSMENT: 1. Status post respiratory failure. 2. Metastatic ovarian cancer. 3. History of cancer of bladder, status post extensive cystectomy and ileal conduit formation. 4. Status post pacemaker placement. 5. Dilated cardiomyopathy. PLAN: Patient is clinically stable at this point. Family and herself, they want hospice care. She does not want to get anymore chemo, so she is being discharged home to hospice with Eliquis, digoxin, Lasix, K-Dur, and hospice care. Hospice agency will follow patient as outpatient. Kimberley Hernadez MD
== END 2017-09-06 19:21 | disposition hospice, home (50) | DRG 280 ==
LOC: ED 10:34 → ERH 13:05 → ICU 13:50
PROVIDERS: ADMIT Internal Medicine Medical Oncology; ATTEND Internal Medicine
PROC: 5A1935Z Respiratory Ventilation, Less than 24 Consecutive Hours (ICD-10-PCS; principal; 2017-09-02)
PROC: 0BH17EZ Insertion of Endotracheal Airway into Trachea, Via Natural or Artificial Opening (ICD-10-PCS; 2017-09-02)
PROC: 3E0F7GC Introduction of Other Therapeutic Substance into Respiratory Tract, Via Natural or Artificial Opening (ICD-10-PCS; 2017-09-02)
PROC: 4A023N7 Measurement of Cardiac Sampling and Pressure, Left Heart, Percutaneous Approach (ICD-10-PCS; 2017-09-04)
PROC: B211YZZ Fluoroscopy of Multiple Coronary Arteries using Other Contrast (ICD-10-PCS; 2017-09-04)
PROC: B215YZZ Fluoroscopy of Left Heart using Other Contrast (ICD-10-PCS; 2017-09-04)
DX: I21.4 Non-ST elevation (NSTEMI) myocardial infarction (principal); J96.01 Acute respiratory failure with hypoxia; I50.23 Acute on chronic systolic (congestive) heart failure; A41.9 Sepsis, unspecified organism; G35 Multiple sclerosis; N17.9 Acute kidney failure, unspecified; C56.9 Malignant neoplasm of unspecified ovary; D64.9 Anemia, unspecified; I42.0 Dilated cardiomyopathy; L03.315 Cellulitis of perineum; L97.929 Non-pressure chronic ulcer of unspecified part of left lower leg with unspecified severity; G62.9 Polyneuropathy, unspecified; C67.9 Malignant neoplasm of bladder, unspecified; I25.10 Atherosclerotic heart disease of native coronary artery without angina pectoris; Z66 Do not resuscitate; Z51.5 Encounter for palliative care; E87.6 Hypokalemia; G89.29 Other chronic pain; F43.0 Acute stress reaction; K21.9 Gastro-esophageal reflux disease without esophagitis; Z86.718 Personal history of other venous thrombosis and embolism; Z79.01 Long term (current) use of anticoagulants; Z95.5 Presence of coronary angioplasty implant and graft; Z93.6 Other artificial openings of urinary tract status; Z95.810 Presence of automatic (implantable) cardiac defibrillator; Z90.710 Acquired absence of both cervix and uterus

== ENCOUNTER 2018-04-14 15:11 | Inpatient (IN) | payer BC ==
--- NOTE | 2018-04-14 15:17 | ED PDOC ---
Arrival/HPI - General Time Seen by Provider: 04/14/18 15:15 Historian: Patient - History of Present Illness Narrative History of Present Illness (Text): 62 y/ofemale hospice patient w/ h/o gallbladder & ovarian cancer presenting to the emergency department complaining of persistent generalized abdominal pain worsening for the past 2 weeks. She reports taking oral morphine at 08:00AM this morning as well as the liquid release with minimal alleviation of pain. Per the patient's brother(diamond sawer), her pain regimen was no longer working well since November 2017 despite taking Morphine liquid and 3 pills every 8 hrs. The patient notes also having a fever 5 days ago with a temperature of 101.1F which resolved with Tylenol. She denies any nausea, vomiting, diarrhea, any recent leg swelling, or any other complaints at this time. She mentions she is currently on Eliquis and is taking Lasix (dosage change by hospice physician from 20mg to 40 mg, and went up to 80 mg). PMD: Dr. Hernadez 04/19/18 07:18 Time/Duration: Prior to Arrival Symptom Onset: Gradual Symptom Course: Unchanged Quality: Aching Severity Level: Severe Activities at Onset: Rest Context: Home Past Medical History - Provider Review Nursing Documentation Reviewed: Yes - Travel History Have you recently traveled outside [place] w/in the past 3 mons?: No - Infectious Disease Hx of Infectious Diseases: None - Tetanus Immunization Tetanus Immunization: Up to Date - Cardiac Hx Cardiac Disorders: Yes (s/p angioplasty) - Pulmonary Hx Respiratory Disorders: No - Neurological Hx Neurological Disorder: Yes Hx Multiple Sclerosis: Yes Other/Comment: 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 - HEENT Hx HEENT Disorder: No Other/Comment: wears glasses - Renal Hx Renal Disorder: Yes Other/Comment: bladder stones/ cancer - Endocrine/Metabolic Hx Endocrine Disorders: No - Hematological/Oncological Hx Cancer: Yes (Ovarian and bladder) - Integumentary Hx Dermatological Disorder: No - Musculoskeletal/Rheumatological Hx Musculoskeletal Disorders: Yes - Gastrointestinal Hx Gastrointestinal Disorders: Yes Hx Gastroesophageal Reflux: Yes Hx Vomiting: No - Genitourinary/Gynecological Hx Genitourinary Disorders: Yes Hx Bladder Cancer: Yes Hx Bladder Stone: Yes Hx Ovarian Cancer: Yes Other/Comment: + R side urostomy - Psychiatric Hx Emotional Abuse: No Hx Physical Abuse: No Hx Substance Use: No - Surgical History Other/Comment: Gtube reversal. R side urostomy. L side pacemaker/defibrillator. Partial hysterectomy. Bladder cancer resection - Anesthesia Hx Anesthesia Reactions: No Hx Malignant Hyperthermia: No - Suicidal Assessment Feels Threatened In Home Enviroment: No Family/Social History - Physician Review Nursing Documentation Reviewed: Yes Family/Social History: No Known Family HX Smoking Status: Never Smoked Hx Alcohol Use: No Hx Substance Use: No Hx Substance Use Treatment: No Allergies/Home Meds Allergies/Adverse Reactions: Allergies No Known Allergies Allergy (Verified 04/14/18 17:51) Home Medications: Home Meds Medication Instructions Recorded Confirmed RX: tiZANidine [Zanaflex] 4 mg PO HS 10/16/15 04/14/18 Apixaban [Eliquis] 2.5 mg PO BID 09/02/17 04/14/18 Famotidine [Pepcid] 20 mg PO BID 09/02/17 04/14/18 RX: Alprazolam [Xanax] 0.25 mg PO TID PRN 09/02/17 04/14/18 RX: Atenolol [Tenormin] 50 mg PO DAILY 09/02/17 04/14/18 RX: Dexamethasone [Decadron] 4 mg PO TID PRN 09/02/17 04/14/18 RX: Ondansetron [Zofran Tab] 8 mg PO TID PRN 09/02/17 04/14/18 RX: Pantoprazole Sodium [Protonix] 40 mg PO DAILY 09/02/17 04/14/18 RX: Pregabalin [Lyrica] 225 mg PO BID 09/02/17 04/14/18 Digoxin [Lanoxin] 0.125 mg PO 1400 09/06/17 04/14/18 Furosemide [Lasix] 80 mg PO DAILY 09/06/17 04/14/18 Morphine Sulfate [Morphine Oral 0.5 ml PO Q3H PRN 09/06/17 04/14/18 Soln] Potassium Chloride [K-Dur 20] 20 meq PO DAILY 09/06/17 04/14/18 Review of Systems - Physician Review All systems were reviewed & negative as marked: Yes - Review of Systems Constitutional: Fevers (101.1 5 days ago) Gastrointestinal: Abdominal Pain (consistent). absent: Diarrhea, Nausea, Vomiting Musculoskeletal: absent: Other (no leg swelling) Physical Exam Vital Signs Reviewed: Yes Temperature: Afebrile Blood Pressure: Hypertensive Pulse: Regular Respiratory Rate: Normal Appearance: Positive for: Non-Toxic, Uncomfortable, Cachectic Pain Distress: None Mental Status: Positive for: Alert and Oriented X 3 - Systems Exam Head: Present: Atraumatic, Normocephalic Pupils: Present: PERRL Extroacular Muscles: Present: EOMI Conjunctiva: Present: Normal Mouth: Present: Moist Mucous Membranes Respiratory/Chest: Present: Decreased Breath Sounds (bilaterally), Other (implantable device to left upper chest wall; palpable power port to right upper chest wall) Cardiovascular: Present: Regular Rate and Rhythm, Normal S1, S2. No: Murmurs Abdomen: Present: Tenderness (LLQ), Other (stoma present to RLQ; Straie noted diffusely to lower abdominal wall) Upper Extremity: Present: Normal Inspection. No: Cyanosis, Edema Lower Extremity: Present: Edema (+1 pitting edema), Other (ecchymosis to anterior shins bilaterally.) Neurological: Present: GCS=15, CN II-XII Intact, Speech Normal Skin: Present: Warm, Dry, Normal Color. No: Rashes Psychiatric: Present: Alert, Oriented x 3, Normal Insight, Normal Concentration Medical Decision Making ED Course and Treatment: 04/14/18 15:19 Impression: 62 year old female with consistent abdominal pain. Physical exam shows patient appears uncomfortable and cachectic; implantable device to left upper chest wall, palpable power port to right upper chest wall, diminished breath sounds bilaterally; LLQ tenderness, stoma present to RLQ, diffuse straie present to left abdominal wall; pitting edema +1 lower extremities bilaterally, ecchymosis to anterior shins bilaterally. Plan: -- Abd/Pelvis CT -- Chest X-Ray -- Labs -- Venous Blood Gas -- Ketalar -- Morphine -- Urinalysis -- Reassess and disposition Prior Visits: Notes and results from previous visits were reviewed. Patient was last seen here in the emergency department on 09/02/2017 for progressively worsening shortness of breath . Patient was admitted. Progress Notes: 04/14/18 17:02 Labs reviewed with lipase noted to be elevated along with BNP. Ketamine ordered. 04/14/18 17:10 Patient reevaluated and noted to be sleeping. Will reevaluate once CT scan is resulted. Spoke to Dr. Hernadez who requests patient to be discussed with Dr. Lake(oncologist). 04/14/18 18:[address] Lake whom after consulting with Dr. Hernadez accepts the case and will assist as consult. Patient and brother notified of updated plan and are in agreement. - Lab Interpretations I have reviewed the lab results: Yes - Scribe Statement The provider has reviewed the documentation as recorded by the Celestine Brumfield Provider Scribe Attestation: All medical record entries made by the Seanibmarty were at my direction and personally dictated by me. I have reviewed the chart and agree that the record accurately reflects my personal performance of the history, physical exam, medical decision making, and the department course for this patient. I have also personally directed, reviewed, and agree with the discharge instructions and disposition. Disposition/Present on Arrival - Present on Arrival Any Indicators Present on Arrival: Yes History of DVT/PE: No History of Uncontrolled Diabetes: No Urinary Catheter: Yes History Surgical Site Infection Following: None - Disposition Have Diagnosis and Disposition been Completed?: Yes Diagnosis: Intractable abdominal pain Disposition: HOSPITALIZED Disposition Time: 17:30 Patient Plan: Admission Condition: FAIR
[2018-04-14 15:21] VITALS: BMI 21.7
[2018-04-14] MEDS ORDERED: Ketamine 10 mg/ml Inj (20 ml) IV ONE ×2 (15:38→18:01)
[2018-04-14 16:34] LABS: BASO # 0.02 K/mm3 (0.0-2.0); BASO % 0.2 % (0.0-3.0); EOS % 0.2 % (1.5-5.0); GRAN # 8.84 (1.4-6.5); GRAN % 81.6 % (50.0-68.0); HEMOGLOBIN 12.5 g/dL (12.0-16.0); LYMPH # 1.3 (1.2-3.4); LYMPH % 11.5 % (22.0-35.0); MEAN CORPUSCULAR HEMOGLOBIN 28.5 pg (25.0-35.0); MEAN CORPUSCULAR HGB CONC 32.8 g/dl (31.0-37.0); MEAN PLATELET VOLUME 8.9 fl (7.0-11.0); MONO # 0.7 (0.1-0.6); MONO % 6.5 % (1.0-6.0); RBC 4.38 10^6/uL (3.5-6.1); RED CELL DISTRIBUTION WIDTH 16.6 % (11.5-14.5); WHITE BLOOD COUNT 10.8 10^3/ul (4.5-11.0)
[2018-04-14 16:35] LABS: VENOUS BLOOD GAS BASE EXCESS 6.2 mmol/L (0.0-2.0); VENOUS BLOOD GAS PO2 142 mm/Hg (30-55); VENOUS BLOOD PH 7.47 (7.32-7.43)
[2018-04-14 16:42] LABS: INR 0.99; PARTIAL THROMBOPLASTIN TIME 25.9 Seconds (25.1-36.5); PROTHROMBIN TIME 11.3 SECONDS (9.4-12.5)
[2018-04-14 16:46] LABS: ALB/GLOB RATIO 1.1 (1.1-1.8); ALT/SGPT 229 U/L (7-56); AST/SGOT 225 U/L (14-36); BLOOD UREA NITROGEN 28 mg/dL (7-21); CALCIUM 9.5 mg/dL (8.4-10.5); GFR NON-AFRICAN AMERICAN 50; LIPASE 1350 U/L (23-300)
[2018-04-14 16:54] LABS: B-TYPE NATRIURETIC PEPTIDE 3880 pg/mL (0-450)
[2018-04-14 17:50] LABS: PH,URINE 6.5 (4.7-8.0); URINE BILIRUBIN NEGATIVE (NEGATIVE); URINE BLOOD NEGATIVE (NEGATIVE); URINE GLUCOSE (UA) NEGATIVE (NEGATIVE); URINE LEUKOCYTE ESTERASE NEGATIVE Leu/uL (NEGATIVE); URINE PROTEIN 100 mg/dL (<30 mg/dL); URINE UROBILINOGEN 0.2 E.U./dL (<1 E.U./dL)
[2018-04-14 17:51] LABS: URINE APPEARANCE CLEAR (CLEAR); URINE COLOR LIGHT YELLOW (YELLOW)
[2018-04-14 17:57] LABS: URINE BACTERIA TRACE (NEG); URINE RBC NEGATIVE /hpf (0-2); URINE WBC 0 - 2 /hpf (0-6)
[2018-04-14] MEDS ORDERED: Iohexol 350 MG/100 ML VIAL ONE (18:01)
[2018-04-14] MEDS ORDERED: Morphine 4 mg/ml ISec IVP STA (19:37)
[2018-04-14 21:31] LABS: VENOUS BLOOD GAS BASE EXCESS 5.2 mmol/L (0.0-2.0); VENOUS BLOOD GAS PO2 80 mm/Hg (30-55); VENOUS BLOOD PH 7.48 (7.32-7.43)
[2018-04-14] MEDS ORDERED: Influenza Vaccine 60 mcg/0.5 mL SYR (4YR UP) IM ONE (22:57)
[2018-04-14] MEDS ORDERED: Pneumococcal 23-Valent Vaccine IM ONE (22:57)
[2018-04-14] MEDS: Morphine 4 mg/ml ISec IVP PRN (23:54)
[2018-04-15 00:42] LABS: VENOUS BLOOD GAS BASE EXCESS 8.1 mmol/L (0.0-2.0); VENOUS BLOOD GAS PO2 31 mm/Hg (30-55); VENOUS BLOOD PH 7.39 (7.32-7.43)
[2018-04-15] MEDS: Morphine 4 mg/ml ISec IVP PRN ×3 (05:42→17:25)
[2018-04-15] MEDS: Potassium Chloride 20 mEq ER Tab PO SCH (09:18)
--- NOTE | 2018-04-15 09:43 | CT ---
Date of service: 04/14/2018 PROCEDURE: CT Abdomen and Pelvis with contrast HISTORY: Abdominal pain. Relevant medical history: Gallbladder cancer and ovarian cancer. COMPARISON: None. TECHNIQUE: Intravenous contrast dose: 100 cc Omnipaque 350 Radiation dose: Total exam DLP = 315.90 mGy-cm. This CT exam was performed using one or more of the following dose reduction techniques: Automated exposure control, adjustment of the mA and/or kV according to patient size, and/or use of iterative reconstruction technique. FINDINGS: LOWER THORAX: Unremarkable. LIVER: Unremarkable. No gross lesion or ductal dilatation. GALLBLADDER AND BILE DUCTS: Cholelithiasis without CT evidence of acute cholecystitis. PANCREAS: Unremarkable. No gross lesion or ductal dilatation. SPLEEN: Unremarkable. ADRENALS: New left adrenal metastasis. The left adrenal gland measures 2 x 3.0 cm. Normal right adrenal gland. KIDNEYS AND URETERS: New bilateral hydronephrosis, hydroureter right greater than. VASCULATURE: Unremarkable. No aortic aneurysm. No atherosclerotic calcification or mural plaque present. BOWEL: Postoperative changes related to diverting ostomy. APPENDIX: Normal appendix. PERITONEUM: Low volume intra-abdominal ascites. Trace free fluid identified in the pelvis/cul de sac. No free air. LYMPH NODES: Retroperitoneal, peripancreatic lymphadenopathy. Lymph nodes are also identified at the origin of the celiac axis surrounding the hepatic and splenic arteries. BLADDER: Unremarkable. REPRODUCTIVE: Increase in size of complex pelvic mass with solid and cystic components currently measuring 8.7 x 9.8 cm. On the prior study this measured 7.5 x 8.6 cm. BONES: No acute fracture. OTHER FINDINGS: None. IMPRESSION: Tumor progression. Increase in size of pelvic mass. New left adrenal metastasis. Progressive upper abdominal, retroperitoneal and peripancreatic adenopathy. Bilateral obstructive uropathy right greater than left. Concordant results (preliminary interpretation) provided by [employer]. Procedure Completed: 18:59. Preliminary Report: Dictated and Authenticated: 19:54. Final Interpretation: 09:39. April 15, 2018
--- NOTE | 2018-04-15 10:28 | RAD ---
Date of service: 04/14/2018 HISTORY: Abdominal pain. COMPARISON: 09/03/2017. FINDINGS: LUNGS: No active pulmonary disease. PLEURA: No significant pleural effusion identified, no pneumothorax apparent. CARDIOVASCULAR: No atherosclerotic calcification present No radiographic findings to suggest acute or significant cardiovascular disease. Position/ configuration of pacemaker device: Satisfactory. Venous access catheter in stable, satisfactory position. OSSEOUS STRUCTURES: No significant abnormalities. VISUALIZED UPPER ABDOMEN: Normal. OTHER FINDINGS: None. IMPRESSION: Resolution of pulmonary infiltrates compared to the prior study. No active pulmonary disease. Stable support apparatus.
[2018-04-15] MEDS ORDERED: Vancomycin 1gm in NS 250ml 1 GM/250 ML BAG IVPB STA (11:10)
[2018-04-15] MEDS: Acyclovir 500 MG in Sodium Chloride 0.9% 100 ML IV SCH ×3 (12:00→21:18)
[2018-04-15] MEDS: cefTRIAXone 1 gm 1 GM/100 ML BAG IVPB SCH (12:23)
[2018-04-15] MEDS: Morphine 15 mg SR Tab PO SCH ×2 (12:27→21:17)
--- NOTE | 2018-04-15 12:32 | CARD ---
APPROVED REPORT Date of service: 04/14/2018 EKG Measurement Heart [id number] <Conclusion> Electronic ventricular pacemaker
[2018-04-15] MEDS: Digoxin 125 mcg (0.125 mg) Tab PO SCH (13:02)
--- NOTE | 2018-04-15 13:10 | CON ---
DATE OF CONSULTATION: 04/15/2018 The patient is in room 574, bed 1. CHIEF COMPLAINT: Left-sided abdominal pain for several days. HISTORY OF PRESENT ILLNESS: This is a 62-year-old female, known to me from previous admission, with a history of urinary bladder cancer, ovarian cancer with serious metastases, congestive heart failure, cardiomyopathy, urinary bladder stones, multiple sclerosis, coronary artery disease, hypercholesterinemia, history of carpal tunnel syndrome, who is with a home hospice and developed worsening of abdominal pain and fevers of 101 at home. PAST MEDICAL HISTORY: Significant for ovarian cancer with metastases, congestive heart failure, cardiomyopathy, urinary bladder stones, multiple sclerosis, coronary artery disease, urinary bladder cancer. PAST SURGICAL HISTORY: Significant for pacemaker, Port-A-Cath placement, lymph node biopsy, partial hysterectomy and cardiac catheterization. MEDICATIONS AT HOME: Lyrica, Protonix, morphine, Pepcid, Lanoxin, Decadron, atenolol, Eliquis, Xanax. ALLERGIES: THE PATIENT HAS NO KNOWN ALLERGIES. REVIEW OF SYSTEMS: A 12-point review of systems performed. PHYSICAL EXAMINATION: She is in bed, appearing weak, chronically ill, awake and alert, answering questions appropriately. Her brother is at the bedside. She has a temperature of 98, blood pressure is 140/80, respiratory rate of 18, heart rate of 88. Examination of HEENT is unremarkable. Neck is supple. Lungs have decreased breath sounds. Heart exam normal S1, S2. Abdominal examination reveals mild tenderness. No rebound or guarding. No masses. On the left side of the abdomen, there are multi-dermatomal rash, dermatomal pattern, extending into the perineal area and not into the peritoneum entirely, however it is dermatomal. LABORATORY EXAMINATION: Reveals the patient's white count of 10,000, hemoglobin of 12. Chemistries reveal a BUN of 28, creatinine of 1.1. LFTs are elevated. BNP is elevated. Urinalysis shows a protein of 100. CAT scan of the abdomen and pelvis reveals progression of disease of underlying malignancy. Chest x-ray shows no active disease in the lungs. ASSESSMENT AND PLAN: This is a 62-year-old female with urinary bladder cancer, ovarian cancer with metastases, congestive heart failure, cardiomyopathy, urinary bladder stones, multiple sclerosis, coronary artery disease, now presenting with a left abdominal wall multi-dermatomal herpes zoster. We will treat with acyclovir, place the patient on zoster isolation. She does not appear to have any bacterial superinfection at this time and may discontinue the ceftriaxone. We will check on the cultures and the patient had an HIV test last year, which was negative. Overall, prognosis is quite poor. Tyler Anglin MD
--- NOTE | 2018-04-15 16:31 | HP ---
HISTORY OF PRESENT ILLNESS: Ms. Head is a 62-year-old female with history of urinary bladder cancer, ovarian cancer with metastatic lesion in the abdomen. She has been on home hospice for approximately about 6 months when she refused further treatment and chemotherapy. She was admitted to the hospital with uncontrolled pain, especially on the left upper abdomen. Swelling of the left abdominal skin extending into the perineum, had a high fever at 101 at home with persistent nausea and vomiting. She also has a history of multiple sclerosis. She is stating that home hospice does not control her pain very well. She is also stating that she wants to discontinue hospice and wants to have full care right now. She does not even want to be DNR/DNI. PAST MEDICAL HISTORY: Ovarian cancer, congestive cardiomyopathy, bladder cancer, multiple sclerosis, coronary artery disease, CHF. PAST SURGICAL HISTORY: Port placement, lymph node biopsy, hysterectomy, cardiac catheterization. HOME MEDICATIONS: Lyrica, Protonix, morphine, Pepcid, Lanoxin, Decadron, atenolol, Eliquis, Xanax. ALLERGIES: NO KNOWN DRUG ALLERGIES. REVIEW OF SYSTEMS: As per HPI. Rest of 12-point review of systems reviewed and negative. PHYSICAL EXAMINATION: GENERAL: She appears chronically ill and distressed due to pain on the left lower abdomen. VITAL SIGNS: Temperature 98, heart rate 80 per minute and blood pressure 140/70. HEENT: Pallor positive. NECK: No lymphadenopathy. CHEST: Decreased breath sounds bilateral. ABDOMEN: Tender on the left side, abdominal wall cellulitis extending into the perineum. SKIN: Thick and very tender to touch. [employer]: Alert and oriented x3. No focal sensory or motor deficit. LABORATORY DATA: White count 10.8, hemoglobin 12.5, hematocrit 38.1, platelets 453. Sodium 136, potassium 4.3, creatinine 1.1. AST 225, ALT 229, alkaline phosphatase 134. BNP 3000. Coags within normal limits. ASSESSMENT: 1. Stage IV ovarian cancer, bladder cancer. 2. Left-sided abdominal wall cellulitis extending into the perineum. 3. Intractable abdominal pain. 4. Nausea and vomiting. 5. History of multiple sclerosis. PLAN: She has been on home hospice. She wants to discontinue hospice and wants full care now. Blood culture from the port and peripheral to be sent stat. Urine culture from the bag to be sent stat. One dose of IV ceftriaxone, one dose IV vancomycin. Surgery consult, Dr. Navarro requested; I appreciate the input. There is no drainable abscess on the left abdominal wall and left perineum. ID consultation, Dr. Anglin requested. Discussed with Dr. Anglin. It seems like she has herpes involvement on the left side of the skin and the perineum, started on IV acyclovir by Dr. Anglin, isolation for herpes requested. We will continue home medications, digoxin 0.125 mg daily, Colace 100 mg daily, Pepcid mg daily, atenolol 50 mg daily, Xanax 0.25 mg daily, and pain control morphine 4 mg q.4h. Since pain is not controlled with that, I will add long-acting morphine 15 mg p.o. q.12h. We will monitor the pain. Antonia Lake MD
[2018-04-16] MEDS: Morphine 4 mg/ml ISec IVP PRN (02:48)
[2018-04-16] MEDS: Acyclovir 500 MG in Sodium Chloride 0.9% 100 ML IV SCH ×2 (06:58→14:05)
[2018-04-16] MEDS: Morphine 15 mg SR Tab PO SCH ×2 (10:41→21:41)
[2018-04-16] MEDS: Potassium Chloride 20 mEq ER Tab PO SCH (10:43)
[2018-04-16] MEDS: cefTRIAXone 1 gm 1 GM/100 ML BAG IVPB SCH (10:44)
[2018-04-16] MEDS: Digoxin 125 mcg (0.125 mg) Tab PO SCH (14:06)
--- NOTE | 2018-04-16 15:27 | PCM.RRT ---
[facility] Nurse Assessment - Situation Date: 04/16/18 [facility] Location:: [address] [place] [address] Room Number: [id number] [facility] Called By: RN - IV IV Inserted during [facility]?: No - Respiratory Oxygen Delivery Method: Room Air - [place] Coma Scale Coma Scale Eye Opening: Spontaneous Coma Scale Motor: Obeys Commands Movement Coma Scale Verbal: Oriented I.Reason for T[facility] JUSTICE - A) Acute Change in Patient: (Select all that apply): absent: Acute change in mental status, Acute change in heart rate less than 50 or greater than 120, Acute change in SBP below, Acute change in respiratory rate less than 8 or greater than 28, Acute change in SpO2 less, Delirium Tremens (DT's), Uncontrolled Bleeding, Hemoptysis, Hematemesis, Melena, Chest Pain Subjective: 62 year old female with pertinent medical history of ovarian cancer had [facility] JUSTICE called for code star. Senior medical or surgical instrument maker Dr. Garrick Zamarripa and first year resident Dr. Khalif Eden responded immediately. Patient was found to be completely AAOX4 upon entry into the room, and stated that she was reaching over to lemon picker her bank card when she rolled off the bed. Patient denies any aura before falling, denies any tongue biting or loss of bowel bladder, and denies a ny loss of consciousness. Patient further denies hitting her head upon falling, but does state that she fell on her left hip. Patient denies any other injury including to her other limbs, to her back, her head, or her buttocks. Patient did not catch her fall on her hands. Patient denies any decrease in ROM but does admit to pain limited ROM in her left LE. Vital signs were stable, and upon physical exam, patient was found to have scarring and swelling in her vaginal area, as well as her abdomen and her left hip area. Patient states that this was previously there secondary to her ovarian cancer as well as recent diagnosis of shingles. Assessment and Plan 62 year old female with strictly mechanical fall - Obtain vitals (stable) - Obtain blood sugar (stable) - CT Head unnecessary as patient denies hitting her head, as does her who witnessed the fall. Monitor for any acute changes in mental status - Obtain L hip film to rule out any acute fractures - Neurological Status (Select all that apply): Alert, Responsive, Oriented, Verbal, Follows Commands - Respiratory Oxygen Delivery Method: Room Air - Constitutional Appears: Well, Non-toxic, No Acute Distress - Head Head Exam: ATRAUMATIC, NORMAL INSPECTION, NORMOCEPHALIC - Eyes Eye Exam: EOMI, Normal appearance, PERRL - Respiratory Exam Respiratory Exam: Clear to Ausculation Bilateral, NORMAL BREATHING PATTERN - Cardiovascular Exam Cardiovascular Exam: REGULAR RHYTHM - GI/Abdominal Exam GI & Abdominal Exam: Normal Bowel Sounds - Neurological Exam Neurological Exam: Alert, Awake, CN II-XII Intact, Normal Gait, Oriented x3 - Extremities Exam Extremities Exam: Full ROM (pain limited ROM of left lower extremity), Normal Capillary Refill, Normal Inspection (pre-existing swelling at left hip joint)
--- NOTE | 2018-04-16 16:30 | RAD ---
PROCEDURE: Left Hip X-ray Radiographs. HISTORY: s/p fall COMPARISON: None. FINDINGS: BONES: No definitive evidence of acute displaced fracture nor dislocation. The osseous structures appear grossly intact. Both femoral heads are appropriately located within the respective acetabula JOINTS: Mild degenerative osteoarthritis both hip joints SOFT TISSUES: Normal. OTHER FINDINGS: None. IMPRESSION: No definitive evidence of acute displaced fracture nor dislocation. If symptoms persist or occult fracture suspected clinically recommend follow-up of CT scan of the left hip
--- NOTE | 2018-04-16 20:06 | PN ---
DATE: 04/16/2018 SUBJECTIVE: The patient is in bed, in no acute distress. PHYSICAL EXAMINATION: VITAL SIGNS: Temperature is 98, blood pressure is 120/80, respiratory rate of 18. HEENT: Unremarkable. NECK: Supple. LUNGS: Have decreased breath sounds. HEART: Normal S1, S2. ABDOMEN: Soft. SKIN: Improved. Less erythema. However, still active lesions. LABORATORY EXAMINATION: Reveals a white count of 10.8, hemoglobin of 12, BUN of 28, creatinine of 1.1. LFTs are noted. Microbiology reveals the blood cultures are no growth. ASSESSMENT AND PLAN: This is a 62-year-old female who was seen early this morning. She was awake and alert. She spoke to me. She states that her pain was improving, history of urinary bladder cancer, history of ovarian cancer with metastases, congestive heart failure, cardiomyopathy, urinary bladder stones, multiple sclerosis, now with a left abdominal wall multidermatomal herpes zoster, and review of notes reveals patient had a rapid response at 1520. We will discontinue ceftriaxone and acyclovir for now, and has acute change in mental status. We will reevaluate the patient again later today. Tyler Anglin MD
[2018-04-16] MEDS: HYDROmorphone 2 mg/ml ISec IVP PRN (23:39)
--- NOTE | 2018-04-17 08:14 | PN ---
DATE: 04/16/2018 SUBJECTIVE: The patient is a [id number], seen and examined, came in because of increasing abdominal pain. She has a lump in her left under arm that is painful. She has left flank induration and rash. Differential is between lymphangitis versus shingles. PHYSICAL EXAMINATION: GENERAL: She is awake and alert, complaining of pain in all joints, more so in the left abdominal area. VITAL SIGNS: She is afebrile. Pulse 94, respirations 18, blood pressure 140/80. LUNGS: Bilateral fair airflow. No rhonchi or crackle. HEART: S1 and S2 audible. ABDOMEN: Soft. She has induration on the left lower flank, abdominal wall. EXTREMITIES: There is a painful adherent lump in the left under arm. LABORATORY DATA: WBC is 7.8, hemoglobin 12.5, hematocrit 38, platelets 453. Chemistries: Sodium 136, potassium 4.3, chloride 100, CO2 of 29, BUN 28, creatinine 1.1, and blood sugar of 109. AST 225, ALT 228, alk phos 134. BNP 3880. Blood cultures are negative. ASSESSMENT: 1. Metastatic ovarian carcinoma. 2. Metastatic bladder carcinoma, status post ileal conduit. 3. Chronic pain syndrome. 4. History of multiple sclerosis. 5. Cardiomyopathy. PLAN: I will start the patient on Dilaudid, continue her on p.o. morphine sulfate. She is on acyclovir as per ID and she is on Rocephin. We will continue current antibiotics. The patient is in isolation for now. Kimberley Hernadez MD
[2018-04-17] MEDS: Morphine 15 mg SR Tab PO SCH ×2 (09:54→21:04)
[2018-04-17] MEDS: Potassium Chloride 20 mEq ER Tab PO SCH (09:54)
--- NOTE | 2018-04-17 12:15 | PN ---
DATE: 04/17/2018 SUBJECTIVE: The patient is in bed, in no acute distress, nontoxic. PHYSICAL EXAMINATION: VITAL SIGNS: On exam, temperature is 98, blood pressure is 120/70, respiratory rate of 16. HEENT: Examination of HEENT is unremarkable. NECK: Supple. LUNGS: Have decreased breath sounds. HEART: Normal S1 and S2. ABDOMEN: Soft, nontender. LABORATORY DATA: Laboratory examination reveals the patient's the BUN is 28, creatinine of 1.1, GFR is greater than 60 . Lipase was elevated. ASSESSMENT AND PLAN: A 62-year-old female, who this morning is awake and alert and already states she is not sure what happened yesterday. She has a history of ovarian cancer with metastasis, congestive heart failure, cardiomyopathy and multiple sclerosis, urinary bladder stones and now with a left abdominal wall multidermal herpes zoster. We will restart the acyclovir. I do not believe the acyclovir was the cause of the change in mental status, although it can cause change in mental status most commonly in patients with renal failure. We will restart the acyclovir, follow her carefully. The zoster appears to be improving. No need for ceftriaxone. The patient does have herpes zoster. There is no bacterial superinfection. Tyler Anglin MD
[2018-04-17] MEDS: HYDROmorphone 2 mg/ml ISec IVP PRN (16:54)
[2018-04-17] MEDS: Acyclovir 500 MG in Sodium Chloride 0.9% 100 ML IV SCH ×2 (16:54→21:05)
[2018-04-17] MEDS: Digoxin 125 mcg (0.125 mg) Tab PO SCH (18:18)
--- NOTE | 2018-04-17 20:34 | PN ---
DATE: 04/17/2018 SUBJECTIVE: Patient is 62 years old, seen and examined, sitting in bed, complaining of feeling nauseous, complaining of abdominal pain. She states she still has pain in her left under arm. PHYSICAL EXAMINATION: VITAL SIGNS: She is afebrile. Pulse 85, respiration 18, blood pressure 122/75. LUNGS: Bilateral fair airflow. No rhonchi or crackle. HEART: S1 and S2 audible. ABDOMEN: Abdominal wall has induration in the left lower quadrant area. Bilateral legs, no edema. Ileal conduit draining concentrated urine. LABORATORY EXAM: Urine cultures were negative. ASSESSMENT: 1. Metastatic ovarian cancer. 2. Bladder cancer status post ileal conduit formation. 3. Intractable pain of malignancy. 4. Poor oral intake. 5. Confusion and hallucination probably secondary to Dilaudid and acyclovir. PLAN: I will start the patient on Duragesic patch 75 mcg. Patient's oral intake is very poor. We will hold off her Lasix. Patient revoked DNR, so she is full code for now. I will reduce her Dilaudid to 1 mg every 4 p.r.n. and we will reevaluate patient in a.m. Kimberley Hernadez MD
[2018-04-18] MEDS: HYDROmorphone 2 mg/ml ISec IVP PRN ×3 (04:34→22:30)
[2018-04-18] MEDS: Acyclovir 500 MG in Sodium Chloride 0.9% 100 ML IV SCH (05:02)
--- NOTE | 2018-04-18 08:59 | PN ---
DATE: 04/18/2018 SUBJECTIVE: The patient is seen early this morning. She is awake and alert. She is tolerating the antibiotics well. She is still complaining of pain on the left side of her abdomen. PHYSICAL EXAMINATION: VITAL SIGNS: On exam, temperature is 97, blood pressure is 130/70, respiratory rate of 18. HEENT: Examination of HEENT is unremarkable. NECK: Supple. LUNGS: Have decreased breath sounds. HEART: Normal S1 and S2. ABDOMEN: Soft. LABORATORY DATA: Laboratory examination reveals a white count of 10,000, hemoglobin of 12. Chemistries are noted. LFTs are noted to be infused reviewed. Microbiology reveals cultures are in no gross on the blood cultures. ASSESSMENT AND PLAN: A 62-year-old female with past medical history significant for ovarian cancer with metastasis, congestive heart failure, cardiomyopathy, multiple sclerosis, urinary bladder stone, who is now admitted with left-sided abdominal wall multidermal herpes zoster. Appears to be responding well. Still a few active lesions, although much improved. Maybe able to switch to Valtrex upon discharge to complete 7-10 days of p.o. Valtrex. Tyler Anglin MD
[2018-04-18] MEDS: Morphine 15 mg SR Tab PO SCH ×2 (10:06→21:27)
[2018-04-18] MEDS: Lidocaine 2% Jelly (30 ml) TOP SCH ×2 (14:08→18:28)
[2018-04-18] MEDS: Digoxin 125 mcg (0.125 mg) Tab PO SCH (14:13)
[2018-04-19] MEDS: HYDROmorphone 2 mg/ml ISec IVP PRN ×3 (05:13→18:21)
--- NOTE | 2018-04-19 08:06 | PN ---
DATE: 04/18/2018 SUBJECTIVE: The patient is a 62-year-old, seen and examined, seems to be doing little better, complaining of burning in the left lower quadrant where she has lesions. PHYSICAL EXAMINATION VITAL SIGNS: She is afebrile. Pulse 78, respirations 18, blood pressure 118/76. LUNGS: Bilateral fair airflow. No rhonchi or crackle. HEART: S1, S2, audible. ABDOMEN: Soft. She has induration in the left lower quadrant and in the right lower quadrant area. LABORATORY EXAM: Blood culture and urine cultures are negative. ASSESSMENT AND PLAN: 1. Intractable abdominal pain with burning sensation in the left lower quadrant area. Differential is between lymphangitis versus herpes zoster. 2. Metastatic ovarian carcinoma. 3. Bladder carcinoma status post ileal conduit. 4. Cardiomyopathy. PLAN: Currently, the patient is on digoxin. She is on hydromorphone. She is on Duragesic patch. We will continue that. She is on Eliquis, we will apply Lidoderm gel to the left lower quadrant area. Kimberley Hernadez MD
[2018-04-19] MEDS: Morphine 15 mg SR Tab PO SCH (10:56)
[2018-04-19] MEDS: Lidocaine 2% Jelly (30 ml) EXT SCH ×3 (10:58→18:28)
[2018-04-19] MEDS: Digoxin 125 mcg (0.125 mg) Tab PO SCH (14:03)
[2018-04-19 14:08] VITALS: PULSE 86
--- NOTE | 2018-04-19 15:26 | PN ---
DATE: SUBJECTIVE: The patient is 62 years old, still complaining of left lower quadrant burning pain. She states lidocaine gel works for sometime. No fever or chills. Started to eat little better. PHYSICAL EXAMINATION: VITAL SIGNS: She is afebrile, pulse 80, respirations 18 and blood pressure 120/77. LUNGS: Bilateral fair airflow. No rhonchi or crackle. HEART: S1 and S2, audible. ABDOMEN: Soft and she has induration and small lumps in her left lower quadrant area, questionable shingles, probably lymphangitic congestion. Left axillary lump, probably metastatic ovarian CA. Her ileal conduit is working, functioning and clear urine. ASSESSMENT: 1. Metastatic ovarian carcinoma. 2. History of bladder carcinoma, status post ileal conduit. 3. History of multiple sclerosis. 4. Cardiomyopathy. PLAN: Currently, the patient is on acyclovir. She is responding to lidocaine gel. I will talk to Dr. Lake to initiate chemotherapy again and after that we will make her disposition . Kimberley Hernadez MD
--- NOTE | 2018-04-19 16:36 | PN ---
DATE: 04/19/2018 SUBJECTIVE: The patient seen earlier this morning. She is awake and alert, doing well. Her lesions are improving. PHYSICAL EXAMINATION: VITAL SIGNS: Temperature is 98, blood pressure is 120/70, respirations 16. HEENT: Unremarkable. NECK: Supple. HEART: Normal S1, S2. LUNGS: Have decreased breath sounds. ABDOMEN: Soft. The lesions are much improved. Review of orders reveals the patient is on Valtrex. ASSESSMENT AND PLAN: A 62-year-old female with ovarian cancer and metastasis, congestive heart failure, cardiomyopathy, multiple sclerosis, urinary bladder stones and left abdominal wall multidermal herpes zoster, switched over to p.o. Valtrex. May be able to discontinue the isolation at this time. The lesions are much improved. Tyler Anglin MD
[2018-04-20] MEDS: HYDROmorphone 2 mg/ml ISec IVP PRN ×2 (05:35→10:46)
[2018-04-20 08:23] VITALS: PULSE 87; RESP 20; TEMP 99.6; O2SAT 96
[2018-04-20 10:51] VITALS: BP 140/90
--- NOTE | 2018-04-20 12:05 | PN ---
DATE: 04/20/2018 SUBJECTIVE: The patient is in bed in room 574, bed 1. No fevers and no chills. PHYSICAL EXAMINATION: VITAL SIGNS: On exam, temperature is 98, blood pressure is 120/70, respiratory rate of 18. HEENT: Examination of HEENT is unremarkable. NECK: Supple. LUNGS: Have decreased breath sounds. HEART: Normal S1, S2. ABDOMEN: Soft. LABORATORY DATA: Laboratory examination is noted. ASSESSMENT AND PLAN: A 62-year-old female with ovarian cancer with metastasis, congestive heart failure, cardiomyopathy, multiple sclerosis, urinary bladder stone with a left abdominal wall multidermal herpes zoster, which is improving. As of this morning, the patient is awake and alert, doing well and can complete the p.o. Valtrex and may discontinue the isolation. The lesions are beginning to dry. We will follow with you. Tyler Anglin MD
--- NOTE | 2018-04-21 07:03 | DS ---
HISTORY OF PRESENT ILLNESS: The patient is 62 years old with history of metastatic ovarian cancer came to emergency room because of burning pain in the left flank and also painful lump in the left underarm. The patient states she has been having increasing abdominal pain. She revoked her DNR and hospice status and she wanted to be treated, so she came to emergency room. She was placed initially in isolation. She seemed to have lesion in the left flank, seems to be lymphangitis. The patient was placed in isolation, was given IV acyclovir. Sepsis workup was done. Her blood culture and urine cultures are negative. She was given analgesic, acyclovir, started to improve. PHYSICAL EXAMINATION: GENERAL: Today, she is awake, alert, oriented and communicative. VITAL SIGNS: She is afebrile, pulse 87, respirations 20 and blood pressure 120/78. LUNGS: Bilateral fair airflow. No rhonchi or crackle. HEART: S1 and S2, audible. ABDOMEN: Soft and nontender. No rebound. No guarding. NEUROLOGICAL: The patient is awake, alert, oriented, communicative and ambulatory. ASSESSMENT: 1. Metastatic ovarian cancer. 2. History of bladder carcinoma, status post ileal conduit formation. 3. Left flank lymphangitic infiltration versus herpetic lesion. 4. Generalized weakness. 5. Significant weight loss. 6. Cardiomyopathy. 7. Chronic atrial fibrillation. PLAN: The patient is being discharged home today. She is given prescription on Duragesic patch. She was given Duragesic patch 25 mcg every 72 hours. She was given prescription of Dilaudid 2 mg every 4 hours p.r.n., Xanax 0.25 b.i.d. p.r.n. and I spoke to Dr. Lake. She will follow up in office next week. We spoke to the patient at great length. She wants to start chemotherapy and the patient was advised to have her power of workers compensation attorney sister, Pamela, to take her with her go to Dr. Lake and discuss other option, but she is being discharged home in stable condition. She will resume her other medication including Eliquis, Zanaflex, Lyrica, potassium, Protonix, Lasix, Pepcid, digoxin and atenolol. Kimberley Hernadez MD [facility] # [id number]
== END 2018-04-20 14:50 | disposition home or self-care (01) | DRG 596 ==
LOC: ED 15:11 → ERH 19:43 → 5RSO 20:41 → OBSVTOIN 04-16 15:30
PROVIDERS: ADMIT Internal Medicine; ATTEND Internal Medicine
DX: B02.9 Zoster without complications (principal); C56.9 Malignant neoplasm of unspecified ovary; C79.89 Secondary malignant neoplasm of other specified sites; I42.0 Dilated cardiomyopathy; L03.311 Cellulitis of abdominal wall; R64 Cachexia; G89.3 Neoplasm related pain (acute) (chronic); C67.9 Malignant neoplasm of bladder, unspecified; I48.2 Chronic atrial fibrillation; G35 Multiple sclerosis; I25.10 Atherosclerotic heart disease of native coronary artery without angina pectoris; G89.4 Chronic pain syndrome; E78.00 Pure hypercholesterolemia, unspecified; I50.9 Heart failure, unspecified; Z68.21 Body mass index [BMI] 21.0-21.9, adult; Z66 Do not resuscitate; Z78.9 Other specified health status